=== PATIENT | male | born 1950 | race Caucasian/White ===

== ENCOUNTER 2020-09-10 07:50 | Outpatient (RCR) | payer OTHER, SELFPAY | END 2020-09-24 11:00 | disposition home or self-care (01) | LOC: HO.WCC 07:50 | PROVIDERS: PCP Internal Medicine; Visit Provider Surgery | DX: E11.622 Type 2 diabetes mellitus with other skin ulcer (principal); I87.312 Chronic venous hypertension (idiopathic) with ulcer of left lower extremity; L97.329 Non-pressure chronic ulcer of left ankle with unspecified severity; Z92.3 Personal history of irradiation; Z79.4 Long term (current) use of insulin | CPT/HCPCS: 99212; 99213; 99214 ==

== ENCOUNTER 2020-11-03 12:45 | Inpatient (IN) | payer OTHER, SELFPAY ==
--- NOTE | ~2020-11-03 | XR_ITS ---
EXAMINATION: BILATERAL LOWER LEG X-RAYS CLINICAL INFORMATION: Evaluate for osteomyelitis COMPARISON: None TECHNIQUE: 2 views of both lower legs FINDINGS: Right: Bone alignment is normal. No fracture or dislocation is seen. There are degenerative changes at the knee joint. There is no x-ray evidence of osteomyelitis. Soft tissues are unremarkable. Left: Bone alignment is normal. No fracture or dislocation is seen. There is a cortical thickening or periosteal reaction along the proximal medial shaft of the tibia. There is arthritis at the knee and ankle joint. Soft tissues are unremarkable. Soft tissues are unremarkable. XR/XR tibia fibula RT 2V IMPRESSION: Right lower leg: No evidence of osteomyelitis. Left lower leg: Focal periosteal reaction or cortical thickening of the medial proximal shaft of the tibia questionable for osteomyelitis.
--- NOTE | ~2020-11-03 | CT_ITS ---
EXAMINATION: CT KNEE LEFT WITH CONTRAST CLINICAL INFORMATION: Nonhealing ulcer. Clinical concern for osteomyelitis. Abnormal findings on radiographs. COMPARISON: Radiographs of lower extremity from 11/03/2020. Radiographs of the knee from 08/06/2020. TECHNIQUE: Multidetector CT imaging examination of the left knee was performed with intravenous administration of 85 mL Omnipaque 350. No contrast reaction reported. This CT examination was performed using dose optimization techniques as appropriate, variously including the following: *Automated exposure control. *Adjustment of mA and/or kV according to patient size (this includes techniques or standardized protocols for targeted exams where dose is matched to indication/reason for exam, i.e., extremities or head). *Use of iterative reconstruction technique. DLP: 242 mGycm FINDINGS: Localizer images demonstrate obese body habitus, osteoarthritis of both knees (medial tibiofemoral compartments worse than lateral compartments) and bilateral genu varus deformity. Diffuse edema of subcutaneous tissues of the visualized lower thigh, knee and leg, and edematous thickening of the skin. No soft tissue gas. Dilated, varicose veins are present within the extremity. No evidence of venous thrombosis. There is generally moderate atherosclerotic calcification of the peripheral vessels. The visualized muscles of the thigh and leg are atrophied and fatty replaced. No soft tissue mass or focal fluid collection. No evidence of abnormal thickening of the fascia overlying the muscles. There is an old focus of heterotopic ossification along the medial surface of the proximal tibial diaphysis that remains unchanged compared to 08/06/2010. Tricompartmental osteophyte formation of the left knee with loss of patellofemoral and medial tibiofemoral joint spaces and subchondral cystic changes. No evidence of bone erosions or aggressive periostitis. A trace amount of fluid is present in the knee joint. No Paz's cyst. CT/CT knee LT w con IMPRESSION: * No evidence of septic arthritis or osteomyelitis at the left knee. * Morbid obesity and tricompartmental osteoarthritis of left knee. The joint degeneration is moderate at the lateral tibiofemoral compartment and severe at the patellofemoral and medial tibiofemoral compartments. * Nonspecific, diffuse subcutaneous tissue edema of the extremity. This could be a manifestation of venous insufficiency or cellulitis. No evidence of fasciitis, soft tissue gas or abscess.
--- NOTE | ~2020-11-03 | XR_ITS ---
EXAMINATION: BILATERAL LOWER LEG X-RAYS CLINICAL INFORMATION: Evaluate for osteomyelitis COMPARISON: None TECHNIQUE: 2 views of both lower legs FINDINGS: Right: Bone alignment is normal. No fracture or dislocation is seen. There are degenerative changes at the knee joint. There is no x-ray evidence of osteomyelitis. Soft tissues are unremarkable. Left: Bone alignment is normal. No fracture or dislocation is seen. There is a cortical thickening or periosteal reaction along the proximal medial shaft of the tibia. There is arthritis at the knee and ankle joint. Soft tissues are unremarkable. Soft tissues are unremarkable. XR/XR tibia fibula LT 2V IMPRESSION: Right lower leg: No evidence of osteomyelitis. Left lower leg: Focal periosteal reaction or cortical thickening of the medial proximal shaft of the tibia questionable for osteomyelitis.
--- NOTE | ~2020-11-03 | US_ITS ---
EXAMINATION: RIGHT and LEFT LOWER EXTREMITY VENOUS ULTRASOUND (Reflux Exam) CLINICAL INDICATION: Nonhealing ulcer COMPARISON: None. TECHNIQUE: Color flow triplex imaging and compression Doppler was performed to evaluate both the deep and the superficial systems bilaterally. To evaluate the superficial system, the examination was performed in the upright position. Color-flow Doppler ultrasound and compression ultrasound were utilized. In addition, maneuvers were utilized to demonstrate reflux. Exam is very limited due to body habitus. FINDINGS: 1. DEEP VENOUS ULTRASOUND OF THE RIGHT LOWER EXTREMITY: Respiratory variation, normal compression and augmented flow are noted in the right common femoral vein as well as the right popliteal vein and there is no evidence of deep venous thrombosis at these locations. There is no evidence of reflux in the deep system in either the common femoral vein or the popliteal vein. There is no evidence of a Paz's cyst. 2. SUPERFICIAL ULTRASOUND WITH DOPPLER OF RIGHT LOWER EXTREMITY: The right great saphenous vein at the saphenofemoral junction measures 6 mm, at the mid thigh 5 mm, [id number] 5 mm, [id number]-[id number] 5 mm, and not seen at the mid calf and ankle. There is no reflux demonstrated in the right great saphenous vein. The right small saphenous vein is not seen. There is a section cutter in the proximal calf that measures 3 mm and does not demonstrate reflux. There are are multiple varicosities. There is a 3 mm varicosity in the proximal thigh that demonstrates once second reflux and a 4 mm varicosity in the proximal calf that demonstrates 0.8 seconds reflux. 3. DEEP VENOUS ULTRASOUND OF THE LEFT LOWER EXTREMITY: Respiratory variation, normal compression and augmented flow are noted in the left common femoral vein as well as the left popliteal vein and there is no evidence of deep venous thrombosis at these locations. There is 0.9 seconds reflux in the left common femoral vein. There is no evidence of reflux in the deep system in either the mid femoral vein or the popliteal vein. . There is no evidence of a Paz's cyst. 4. SUPERFICIAL ULTRASOUND WITH DOPPLER OF LEFT LOWER EXTREMITY: Left great saphenous vein at the saphenofemoral junction measures 8 mm, at the mid thigh 7 mm, [id number]-[id number] 6 mm, [id number] 7 mm. The remainder of the left greater saphenous vein is not visualized. There is left greater saphenous vein reflux measuring maximum 1.8 seconds. The left small saphenous vein is not visualized. There is a section cutter at the knee that measures 2 mm and does not demonstrate reflux. There are varicosities in the thigh and calf that measure maximum 6 mm and have maximum 0.9 seconds reflux. US/US venous duplex LE BI IMPRESSION: Limited exam Right: No evidence of deep venous reflux or DVT. No great saphenous vein reflux seen. Right lesser saphenous vein is not visualized. Reflux in varicosities in the proximal thigh and calf. Left: No evidence of DVT. Deep venous reflux measuring 0.9 seconds in the left common femoral vein. Left greater saphenous vein reflux measuring maximum 1.8 seconds and reflux in varicosities.
[2020-11-03 13:21] VITALS: BP 160/59; PULSE 71; RESP 18; TEMP 36.7; BMI 58.4
--- NOTE | 2020-11-03 15:51 | ED.EXTPRO ---
HPI - Extremity Problem General Chief complaint: Extremity Problem Stated complaint: bilat leg pain and swelling Time Seen by Provider: 11/03/20 15:17 Source: patient Mode of arrival: ambulatory Limitations: no limitations History of Present Illness HPI Narrative: Patient presents to ED for evaluation of bilateral lower extremities. Patient states history of venous stasis with chronic wounds. Patient states wound clinic give him a tube of lotion to using compression socks in and now his skin on bilateral lower extremities flaky with some oozing. Patient denies any fever or chills. Patient denies any increased swelling of lower extremities, chest pain, shortness of breath Related Data Home Medications Medication Instructions Recorded Confirmed allopurinol 300 mg tablet 300 mg PO DAILY 11/03/20 11/03/20 ascorbic acid (vitamin C) 1,000 mg 1,000 mg PO BID 11/03/20 11/03/20 tablet (Vitamin C) cholecalciferol (vitamin D3) 50 50 mcg PO DAILY 11/03/20 11/03/20 mcg (2,000 unit) capsule cyanocobalamin (vitamin B-12) 2,000 mcg PO DAILY 11/03/20 11/03/20 1,000 mcg tablet insulin aspart U-100 100 unit/mL 5 unit SUBCUT DAILY@1200 11/03/20 11/03/20 subcutaneous solution (Novolog U-100 Insulin aspart) insulin aspart U-100 100 unit/mL 12 unit SUBCUT DAILY@1700 11/03/20 11/03/20 subcutaneous solution (Novolog U-100 Insulin aspart) insulin glargine 100 unit/mL 35 unit SUBCUT QAM 11/03/20 11/03/20 subcutaneous cartridge methenamine hippurate 1 gram tablet 1 g PO BID 11/03/20 11/03/20 pravastatin 40 mg tablet 40 mg PO BEDTIME 11/03/20 11/03/20 spironolactone 25 mg tablet 25 mg PO DAILY 11/03/20 11/03/20 tamsulosin 0.4 mg capsule 0.4 mg PO BEDTIME 11/03/20 11/03/20 torsemide 20 mg tablet 20 mg PO DAILY 11/03/20 11/03/20 Previous Rx's Medication Instructions Recorded apixaban 5 mg tablet (Eliquis) 5 mg PO BID 30 Days #60 tab 03/26/20 Allergies Allergy/AdvReac Type Severity Reaction Status Date / Time penicillin V Allergy Unknown Verified 10/16/19 00:00 Penicillins AdvReac Intermediate HALLUCINATIONS, Unverified 12/19/19 15:54 SWEATS Review of Systems Review of Systems: Yes all other systems are reviewed and are negative Constitutional: Constitutional: Reports as per HPI and Reports no additional constitutional complaints Eyes: Eyes: Reports as per HPI ENT: Reports system reviewed and no additional complaints, except as documented and Reports as per HPI Cardiovascular: Cardiovascular: Reports as per HPI and Reports no additional cardiovascular complaints Respiratory: Respiratory: Reports as per HPI and Reports no additional respiratory complaints Gastrointestinal: Gastrointestinal: Reports as per HPI and Reports no additional gastrointestinal complaints Genitourinary: Genitourinary: Reports no additional male genitourinary complaints and Reports as per HPI Musculoskeletal: Comments: Chronic wounds of lower extremity with bruising Neurologic: Reports system reviewed and no additional complaints, except as documented and Reports as per HPI Psychiatric: Psychiatric: Reports no additional psychiatric complaints and Reports as per HPI [facility] Past Medical History Medical History (Updated 11/03/20 @ 18:22 by RANDY Cerda) Diabetes Hypertension Kidney disease Social History Social History Advance Directives: No Advance Directives Information Provided: No Physical Exam Vital Signs: Vital Signs: Last Vital Signs Temp 98.1 F 11/03/20 13:21 Pulse 71 11/03/20 13:21 Resp 18 11/03/20 13:21 BP 160/59 H 11/03/20 13:21 Body Mass Index 58.4 Const: General: cooperative, healthy appearing, comfortable, no acute distress, well developed, alert and awake Orientation/consciousness: patient oriented x3 HENMT: Head: Yes normal to inspection, Yes No palpable skull fracture present, Yes normocephalic and Yes atraumatic Eyes: General: appearance normal, both eyes and all related structures Neck: Neck: Yes normal visual inspection, Yes full ROM, Yes no lymphadenopathy, Yes no meningeal signs, Yes trachea midline, Yes supple and No tender Chest: Chest palpation & inspection: normal inspection of the chest and normal palpation of entire chest wall Resp: Effort & Inspection: normal respiratory effort and able to speak in complete sentences Cardio: Jugular venous distension: no JVD Heart sounds: S1 normal heart sound present and S2 normal heart sound present GI: Inspection: Yes normal to inspection and No abdominal wall ecchymosis Palpation (GI): Soft to palpation, not firm, nontender, no guarding and not rigid : General: No CVA tenderness and Yes no CVA tenderness Back/Spine/Pelvis: Back: no CVA tenderness, No CVA tenderness and No back tenderness Skin: General skin exam: no rashes or lesions noted and elasticity normal Neuro: General: patient oriented x3, gait normal, no meningeal signs and CN's II-XI intact bilaterally Cranial nerves: Yes CN's II-XII intact bilaterally Extrem: Other: Bilateral lower extremities shows chronic venous stasis changes with dry scaly skin. With serosanguineous mild drainage. Negative for any foul odor or yellow/green pus discharge. Negative for any tenderness on palpation. Psych: Appearance: grossly normal, well kempt and not disheveled Course Course Course Narrative: Wound looks chronic and not really infected but will do x-rays and basic labs to rule out any osteomyelitis Reevaluation(s) Reevaluation #1: X-ray came back positive for osteomyelitis of left leg. Will start antibiotics Time: 16:24 Reevaluation #2: Labs shows mild elevated white blood cell count with elevated ESR CRP. Patient is in a KI. Patient to be admitted for osteomyelitis. Time: 18:18 MDM - Extremity (Nontraumatic) MDM Narrative Medical decision making narrative: Osteomyelitis. MARGOTH. Lab Data Result diagrams: 11/03/20 17:13 11/03/20 17:13 Labs: Lab Results 11/03/20 11/03/20 11/03/20 Range/Units 17:12 17:13 17:13 WBC 11.9 H (4.8-10.8) X10*3/uL RBC 4.86 (4.60-5.80) X10*6/uL Hgb 14.2 (14.0-18.0) g/dl Hct 44.5 (42-52) % MCV 91.6 (80-98) fL MCH 29.2 (27.0-33.0) pg MCHC 31.9 (31.0-36.0) g/dl RDW 15.9 (11.0-16.0) % Plt Count 209 (160-400) X10*3/uL MPV 10.7 (9.4-12.4) fL Immature Gran % (Auto) 1.1 H (0.0-0.4) % Neut % (Auto) 83.8 H (45-73) % Lymph % (Auto) 7.7 L (20-40) % [place] % (Auto) 5.6 (2-11) % Eos % (Auto) 1.5 (0-4) % Baso % (Auto) 0.3 (0-2) % Lymph # (Auto) 0.9 L (1.2-4.9) X10*3/uL [place] # (Auto) 0.7 (0.1-1.2) X10*3/uL Eos # (Auto) 0.2 (0.0-0.4) X10*3/uL Baso # (Auto) 0.0 (0.0-0.2) X10*3/uL Abs Immat Gran (auto) 0.13 H (0.00-0.03) X10*3/uL Absolute Neuts (auto) 10.0 H (2.0-8.3) X10*3/uL Absolute Nucleated RBC 0.000 (0.0-0.012) X10*3/uL Nucleated RBC % (auto) 0.0 (0.0-0.2) /100WBC ESR 38 H (0-15) MM/HR PT (9.9-13.0) SEC INR (0.9-1.1) APTT (24.1-38.0) SEC Sodium (135-145) mmol/L Potassium (3.3-5.1) mmol/L Chloride (96-108) mmol/L Carbon Dioxide (22-29) mmol/L Anion Gap (12-20) BUN (9-16) mg/dL Creatinine (0.5-1.4) mg/dL Estim Creat Clear Calc Estimated GFR POC Glucose (60-115) mg/dL Random Glucose (60-115) mg/dL Lactic Acid (0.5-2.0) mmol/L Calcium (8.4-10.2) mg/dL Total Bilirubin (0.0-1.0) mg/dL AST (5-37) U/L ALT (0-40) U/L Alkaline Phosphatase (39-117) U/L C-Reactive Protein (< or = 0.50) mg/dL Total Protein (6.5-8.0) g/dL Albumin (3.5-5.0) g/dL COVID-19 ([facility]) Negative (Negative) COVID-19 Clin Com See Note 11/03/20 11/03/20 11/03/20 Range/Units 17:13 17:13 17:22 WBC (4.8-10.8) X10*3/uL RBC (4.60-5.80) X10*6/uL Hgb (14.0-18.0) g/dl Hct (42-52) % MCV (80-98) fL MCH (27.0-33.0) pg MCHC (31.0-36.0) g/dl RDW (11.0-16.0) % Plt Count (160-400) X10*3/uL MPV (9.4-12.4) fL Immature Gran % (Auto) (0.0-0.4) % Neut % (Auto) (45-73) % Lymph % (Auto) (20-40) % [place] % (Auto) (2-11) % Eos % (Auto) (0-4) % Baso % (Auto) (0-2) % Lymph # (Auto) (1.2-4.9) X10*3/uL [place] # (Auto) (0.1-1.2) X10*3/uL Eos # (Auto) (0.0-0.4) X10*3/uL Baso # (Auto) (0.0-0.2) X10*3/uL Abs Immat Gran (auto) (0.00-0.03) X10*3/uL Absolute Neuts (auto) (2.0-8.3) X10*3/uL Absolute Nucleated RBC (0.0-0.012) X10*3/uL Nucleated RBC % (auto) (0.0-0.2) /100WBC ESR (0-15) MM/HR PT 16.5 H (9.9-13.0) SEC INR 1.4 H (0.9-1.1) APTT 47.8 H (24.1-38.0) SEC Sodium 142 (135-145) mmol/L Potassium 4.6 (3.3-5.1) mmol/L Chloride 105 (96-108) mmol/L Carbon Dioxide 27 (22-29) mmol/L Anion Gap 15 (12-20) BUN 38 H (9-16) mg/dL Creatinine 1.52 H (0.5-1.4) mg/dL Estim Creat Clear Calc 74.1 Estimated GFR 46 POC Glucose (60-115) mg/dL Random Glucose 118 H (60-115) mg/dL Lactic Acid 1.0 (0.5-2.0) mmol/L Calcium 8.8 (8.4-10.2) mg/dL Total Bilirubin 0.6 (0.0-1.0) mg/dL AST 13 (5-37) U/L ALT 10 (0-40) U/L Alkaline Phosphatase 93 (39-117) U/L C-Reactive Protein 4.12 H (< or = 0.50) mg/dL Total Protein 7.2 (6.5-8.0) g/dL Albumin 3.9 (3.5-5.0) g/dL COVID-19 ([facility]) (Negative) COVID-19 Clin Com 11/03/20 Range/Units 18:21 WBC (4.8-10.8) X10*3/uL RBC (4.60-5.80) X10*6/uL Hgb (14.0-18.0) g/dl Hct (42-52) % MCV (80-98) fL MCH (27.0-33.0) pg MCHC (31.0-36.0) g/dl RDW (11.0-16.0) % Plt Count (160-400) X10*3/uL MPV (9.4-12.4) fL Immature Gran % (Auto) (0.0-0.4) % Neut % (Auto) (45-73) % Lymph % (Auto) (20-40) % [place] % (Auto) (2-11) % Eos % (Auto) (0-4) % Baso % (Auto) (0-2) % Lymph # (Auto) (1.2-4.9) X10*3/uL [place] # (Auto) (0.1-1.2) X10*3/uL Eos # (Auto) (0.0-0.4) X10*3/uL Baso # (Auto) (0.0-0.2) X10*3/uL Abs Immat Gran (auto) (0.00-0.03) X10*3/uL Absolute Neuts (auto) (2.0-8.3) X10*3/uL Absolute Nucleated RBC (0.0-0.012) X10*3/uL Nucleated RBC % (auto) (0.0-0.2) /100WBC ESR (0-15) MM/HR PT (9.9-13.0) SEC INR (0.9-1.1) APTT (24.1-38.0) SEC Sodium (135-145) mmol/L Potassium (3.3-5.1) mmol/L Chloride (96-108) mmol/L Carbon Dioxide (22-29) mmol/L Anion Gap (12-20) BUN (9-16) mg/dL Creatinine (0.5-1.4) mg/dL Estim Creat Clear Calc Estimated GFR POC Glucose 120 H (60-115) mg/dL Random Glucose (60-115) mg/dL Lactic Acid (0.5-2.0) mmol/L Calcium (8.4-10.2) mg/dL Total Bilirubin (0.0-1.0) mg/dL AST (5-37) U/L ALT (0-40) U/L Alkaline Phosphatase (39-117) U/L C-Reactive Protein (< or = 0.50) mg/dL Total Protein (6.5-8.0) g/dL Albumin (3.5-5.0) g/dL COVID-19 ([facility]) (Negative) COVID-19 Clin Com Discharge Plan Discharge Clinical Impression: Osteomyelitis Patient Disposition: Admitted As Inpatient
[2020-11-03 17:22] LABS: MANUAL DIFF FLAG NO
[2020-11-03 17:23] LABS: Basophils Percent Auto 0.3 % (0-2); Eosinophils Absolute Auto 0.2 X10*3/uL (0.0-0.4); Eosinophils Percent Auto 1.5 % (0-4); Hematocrit 44.5 % (42-52); Hemoglobin 14.2 g/dl (14.0-18.0); Imm Gran Abs Auto 0.13 X10*3/uL (0.00-0.03); Imm Gran Pct Auto 1.1 % (0.0-0.4); Lymphocytes Absolute Auto 0.9 X10*3/uL (1.2-4.9); Lymphocytes Percent Auto 7.7 % (20-40); Mean Corpuscular HGB Conc 31.9 g/dl (31.0-36.0); Mean Corpuscular Hemoglobin 29.2 pg (27.0-33.0); Mean Corpuscular Volume 91.6 fL (80-98); Mean Platelet Volume 10.7 fL (9.4-12.4); Monocytes Absolute Auto 0.7 X10*3/uL (0.1-1.2); Monocytes Percent Auto 5.6 % (2-11); Neutrophils Percent Auto 83.8 % (45-73); Platelet Count 209 X10*3/uL (160-400); Red Blood Count 4.86 X10*6/uL (4.60-5.80); Red Cell Distribution Width 15.9 % (11.0-16.0); White Blood Count 11.9 X10*3/uL (4.8-10.8)
[2020-11-03 17:38] LABS: COVID-19 Test Negative (Negative)
[2020-11-03 17:41] LABS: INTERNATIONAL NORM RATIO 1.4 (0.9-1.1); Prothrombin Time 16.5 SEC (9.9-13.0)
[2020-11-03 17:44] LABS: Partial Thromboplastin Time 47.8 SEC (24.1-38.0)
--- NOTE | 2020-11-03 17:54 | PC.NURSE ---
PT IS AMBULATORY WITH CRUTCHES. BLE FROM SONG TO ANKLE HAVE RED DRIED SKIN WITH WEEPING BUBBLY WOUNDS.
[2020-11-03 17:55] LABS: Alanine Aminotransferase 10 U/L (0-40); Albumin Level 3.9 g/dL (3.5-5.0); Alkaline Phosphatase 93 U/L (39-117); Anion Gap 15 (12-20); Aspartate Amino Transferase 13 U/L (5-37); Bilirubin Total 0.6 mg/dL (0.0-1.0); Blood Urea Nitrogen 38 mg/dL (9-16); C Reactive Protein 4.12 mg/dL (< or = 0.50); Calcium 8.8 mg/dL (8.4-10.2); Carbon Dioxide 27 mmol/L (22-29); Chloride 105 mmol/L (96-108); Creatinine Clr Calc Pharmacy 74.1; Estimated Glomerular Filt Rate 46; Glucose Random 118 mg/dL (60-115); Potassium 4.6 mmol/L (3.3-5.1); Sodium 142 mmol/L (135-145); Total Protein 7.2 g/dL (6.5-8.0)
[2020-11-03 18:11] LABS: Erythrocyte Sedimentation Rate 38 MM/HR (0-15)
[2020-11-03] MEDS: cefTRIAXone sodium 1 GM in 0.9 % Sodium Chloride 50 ML IV (18:14)
[2020-11-03 18:26] LABS: Glucose, Whole Blood 120 mg/dL (60-115)
[2020-11-03 20:23] VITALS: BP 166/61; PULSE 62; TEMP 36.7; O2SAT 100
--- NOTE | 2020-11-03 20:27 | P.HPHOSP_ITS ---
History of Present Illness Date of Service: 11/03/20 Chief Complaint: Bilateral leg pain redness and swelling 69-year-old male with a past medical history of hypertension, hyperlipidemia, diabetes, morbid obesity, ARIEL- on CPAP, history of pulmonary hypertension, atrial flutter on Eliquis, history of recurrent UTIs on chronic nitrofurantoin, history of venous stasis, venous stasis ulcers, chronic leg wounds-follows with Wound Clinic, chronic kidney disease with baseline creatinine around 1.4; presented to the hospital with a chief complaint of left leg increased redness, swelling and pain. Patient mentions that he has been having chronic leg wounds secondary to venous stasis; but today he noticed increased swelling of bilateral legs but noted serosanguineous discharge on the left like; went to the Wound Clinic and subsequently sent to the ER for further evaluation. Patient denies any chest pain palpitations lightheadedness or dizziness. Patient denies any fever chills cough. Patient denies any urinary symptoms or GI symptoms Review of all other systems is negative except mentioned above ER course: Patient had x-rays done which showed left tibial osteomyelitis; given ceftriaxone and vancomycin. Admitted to the hospital for further management. [facility] Medical History Diabetes Hypertension Kidney disease Social History Household Members: Spouse Housing: House Do you presently have visiting nurse or other home services: No Patient Tobacco Use Status: Never used Tobacco service: Yes Current occupational status: retired Meds Allergies Allergy/AdvReac Type Severity Reaction Status Date / Time penicillin V Allergy Unknown Hallucinations, Verified 11/19/20 13:40 Sweats Penicillins AdvReac Intermediate HALLUCINATIONS, Verified 11/19/20 13:40 SWEATS Active Medications: Current Medications Generic Name Dose Route Start Last Admin Trade Name Freq PRN Reason Stop Dose Admin Acetaminophen 650 mg 11/03/20 20:23 Acetaminophen 325 Mg Tablet PO Q6H PRN Pain, Mild (Pain Scale 1-3) Allopurinol 300 mg 11/04/20 09:00 Allopurinol 300 Mg Tablet PO DAILY [facility] Apixaban 5 mg 11/03/20 21:00 Apixaban 5 Mg Tablet PO BID [facility] Ascorbic Acid 1,000 mg 11/03/20 21:00 Ascorbic Acid 500 Mg Tablet PO BID [facility] Cyanocobalamin 2,000 mcg 11/04/20 09:00 Cyanocobalamin (Vitamin B-12) 500 Mcg Tablet PO DAILY [facility] Dextrose 25 gm 11/03/20 20:23 Dextrose 50 % 25 Gm/50 Ml Vial IVPUSH Q15M PRN per Hypoglycemia Standing Ord. Protocol Glucose 15 gm 11/03/20 20:23 Glucose Gel 15 Gm Gel..Gram. PO Q15M PRN per Hypoglycemia Standing Ord. Protocol Vancomycin HCl 1,000 mg/ 270 mls @ 270 mls/hr 11/03/20 20:30 Sodium Chloride IV Q12H [facility] Ceftriaxone Sodium 1 gm/ 50 mls @ 100 mls/hr 11/03/20 20:30 Sodium Chloride IV Q24H [facility] Insulin Glargine 20 unit 11/03/20 21:00 Insulin Glargine,Hum.Rec.Anlog 100 Unit/Ml 10 Ml Vial SUBCUT BEDTIME [facility] Insulin Human Lispro 0 unit 11/03/20 21:00 Insulin Lispro 100 Unit/Ml 3 Ml Vial SUBCUT QIDACHS [facility] Protocol Melatonin 6 mg 11/03/20 20:23 Melatonin 3 Mg Tablet PO BEDTIME PRN Insomnia Non-Formulary Medication 1 gm 11/03/20 21:00 Methenamine Hippurate PO BID [facility] Oxycodone HCl 5 mg 11/03/20 20:23 Oxycodone Hcl Immed Release 5 Mg Tablet PO Q6H PRN Pain, Severe (Pain Scale 7-10) Pharmacy Consult 1 each 11/03/20 18:14 Consult Rx Perform Med Rec MISCELLANE ONCE PRN Consult order Pharmacy Consult 1 each 11/03/20 20:21 Consult Rx Vancomycin Dosing MISCELLANE DAILY PRN Consult order Pravastatin Sodium 40 mg 11/03/20 21:00 Pravastatin Sodium 40 Mg Tablet PO BEDTIME [facility] Senna 17.2 mg 11/03/20 20:23 Sennosides 8.6 Mg Tablet PO BEDTIME PRN Constipation Sodium Chloride 3 ml 11/04/20 00:00 0.9 % Sodium Chloride Flush 3 Ml Syringe IVFLUSH QSHIFT [facility] Spironolactone 25 mg 11/04/20 09:00 Spironolactone 25 Mg Tablet PO DAILY [facility] Protocol Tamsulosin HCl 0.4 mg 11/03/20 21:00 Tamsulosin Hcl 0.4 Mg Capsule PO BEDTIME [facility] Torsemide 20 mg 11/04/20 09:00 Torsemide 20 Mg Tablet PO DAILY [facility] Protocol Vitamin D 50 mcg 11/04/20 09:00 Cholecalciferol (Vitamin D3) 25 Mcg Tablet PO DAILY [facility] Home Medications Medication Instructions Recorded Confirmed Last Taken Type allopurinol 300 mg tablet 300 mg PO DAILY 11/03/20 11/03/20 11/03/20 History ascorbic acid (vitamin C) 1,000 mg 1,000 mg PO BID 11/03/20 11/03/20 11/03/20 History tablet (Vitamin C) cholecalciferol (vitamin D3) 50 50 mcg PO DAILY 11/03/20 11/03/20 11/03/20 History mcg (2,000 unit) capsule cyanocobalamin (vitamin B-12) 2,000 mcg PO DAILY 11/03/20 11/03/20 11/03/20 History 1,000 mcg tablet insulin aspart U-100 100 unit/mL 5 unit SUBCUT DAILY@1200 11/03/20 11/03/20 11/03/20 History subcutaneous solution (Novolog U-100 Insulin aspart) insulin aspart U-100 100 unit/mL 12 unit SUBCUT DAILY@1700 11/03/20 11/03/20 11/02/20 History subcutaneous solution (Novolog U-100 Insulin aspart) insulin glargine 100 unit/mL 35 unit SUBCUT QAM 11/03/20 11/03/20 11/03/20 History subcutaneous cartridge methenamine hippurate 1 gram tablet 1 g PO BID 11/03/20 11/03/20 11/03/20 History pravastatin 40 mg tablet 40 mg PO BEDTIME 11/03/20 11/03/20 11/02/20 History spironolactone 25 mg tablet 25 mg PO DAILY 11/03/20 11/03/20 11/03/20 History tamsulosin 0.4 mg capsule 0.4 mg PO BEDTIME 11/03/20 11/03/20 11/02/20 History torsemide 20 mg tablet 20 mg PO DAILY 11/03/20 11/03/20 11/03/20 History Physical Exam Vital Signs and Narrative: Vital Signs: Last Vital Signs Temp 98.1 F 11/03/20 13:21 Pulse 71 11/03/20 13:21 Resp 18 11/03/20 13:21 BP 160/59 H 11/03/20 13:21 Body Mass Index 58.4 Gen: Appears be in no acute distress; obese HEENT: NCAT, Moist mucosa. Pulmonary: Vesicular breath sounds, fair air entry CVS: Normal S1-S2 Abdomen: BS+, Soft, Nontender Extremities: Warm well perfused; bilateral legs has chronic skin changes, scaling; hyperemic-which she has increased as per the patient; left leg has increased redness up to the ankle and small skin abrasion/serosanguineous discharge noted. Neuro: Alert and awake. Results Labs CBC and Chem 7: 11/04/20 06:17 11/06/20 08:18 Labs: Laboratory Results - last 24 hr 11/03/20 11/03/20 11/03/20 17:12 17:13 17:13 MCV 91.6 MCH 29.2 MCHC 31.9 RDW 15.9 Plt Count 209 MPV 10.7 Immature Gran % (Auto) 1.1 H Neut % (Auto) 83.8 H Lymph % (Auto) 7.7 L [place] % (Auto) 5.6 Eos % (Auto) 1.5 Baso % (Auto) 0.3 Lymph # (Auto) 0.9 L [place] # (Auto) 0.7 Eos # (Auto) 0.2 Baso # (Auto) 0.0 Abs Immat Gran (auto) 0.13 H Absolute Neuts (auto) 10.0 H Absolute Nucleated RBC 0.000 Nucleated RBC % (auto) 0.0 ESR 38 H PT INR APTT Anion Gap Estim Creat Clear Calc Estimated GFR POC Glucose Random Glucose Lactic Acid Calcium Total Bilirubin AST ALT Alkaline Phosphatase C-Reactive Protein Total Protein Albumin COVID-19 ([facility]) Negative COVID-19 Clin Com See Note 11/03/20 11/03/20 11/03/20 17:13 17:13 17:22 MCV MCH MCHC RDW Plt Count MPV Immature Gran % (Auto) Neut % (Auto) Lymph % (Auto) [place] % (Auto) Eos % (Auto) Baso % (Auto) Lymph # (Auto) [place] # (Auto) Eos # (Auto) Baso # (Auto) Abs Immat Gran (auto) Absolute Neuts (auto) Absolute Nucleated RBC Nucleated RBC % (auto) ESR PT 16.5 H INR 1.4 H APTT 47.8 H Anion Gap 15 Estim Creat Clear Calc 74.1 Estimated GFR 46 POC Glucose Random Glucose 118 H Lactic Acid 1.0 Calcium 8.8 Total Bilirubin 0.6 AST 13 ALT 10 Alkaline Phosphatase 93 C-Reactive Protein 4.12 H Total Protein 7.2 Albumin 3.9 COVID-19 ([facility]) COVID-19 Clin Com 11/03/20 18:21 MCV MCH MCHC RDW Plt Count MPV Immature Gran % (Auto) Neut % (Auto) Lymph % (Auto) [place] % (Auto) Eos % (Auto) Baso % (Auto) Lymph # (Auto) [place] # (Auto) Eos # (Auto) Baso # (Auto) Abs Immat Gran (auto) Absolute Neuts (auto) Absolute Nucleated RBC Nucleated RBC % (auto) ESR PT INR APTT Anion Gap Estim Creat Clear Calc Estimated GFR POC Glucose 120 H Random Glucose Lactic Acid Calcium Total Bilirubin AST ALT Alkaline Phosphatase C-Reactive Protein Total Protein Albumin COVID-19 ([facility]) COVID-19 Clin Com Imaging Radiologist's Impressions: Impressions Tibia/Fibula X-Ray 11/03/20 15:30 IMPRESSION: Right lower leg: No evidence of osteomyelitis. Left lower leg: Focal periosteal reaction or cortical thickening of the medial proximal shaft of the tibia questionable for osteomyelitis. Tibia/Fibula X-Ray 11/03/20 15:30 IMPRESSION: Right lower leg: No evidence of osteomyelitis. Left lower leg: Focal periosteal reaction or cortical thickening of the medial proximal shaft of the tibia questionable for osteomyelitis. Assessment and Plan (1) Osteomyelitis: Status: Acute 69-year-old male with a past medical history of hypertension, hyperlipidem ia, diabetes, atrial flutter, history of gout, chronic kidney disease, venous stasis, history of abscesses ulcers/chronic leg wounds-follows Wound Clinic; pulmonary hypertension, morbid obesity, ARIEL-not on CPAP presented to the hospital with a chief complaint of increased pain redness and swelling of bilateral legs; noted to have cellulitis/dermatitis/osteomyelitis. Chronic venous stasis/dermatitis/left tibial osteomyelitis: Continue vancomycin and ceftriaxone.( patient tolerated ceftriaxone in the ER) ID consult Vascular surgery consult Wound consult Diabetes: Will keep the patient on Lantus 20 units and insulin sliding scale. History of recurrent UTIs: Patient on methenamine hippurate History of a flutter: Continue home Eliquis History of chronic kidney disease: Patient baseline creatinine around 1.4. Will continue to monitor Hx ARIEL: c/w home CPAP at bedtime DVT prophylaxis: Patient on Eliquis Code status: Full code Quality Stroke Does the patient have a stroke diagnosis?: No VTE Prior VTE?: No VTE Risk Level:: Medical - moderate - high VTE Device Contraindication: Treatment Not Indicated VTE Drug Contraindication: N/A - Med Ordered
--- NOTE | 2020-11-03 21:20 | PC.NURSE ---
rn to rn rocio vences on IMC.
--- NOTE | 2020-11-03 21:21 | PC.NURSE ---
Pt has been up to [place] mult times. Is steady with crutches. wounds weep only very slightly. NAD.
[2020-11-03 21:38] VITALS: BP 164/89; PULSE 80; RESP 24; TEMP 36.6; O2SAT 98
[2020-11-03 22:07] LABS: Glucose, Whole Blood 249 mg/dL (60-115)
[2020-11-03] MEDS: Ascorbic Acid 500 MG TABLET 1000 MG PO (22:11)
[2020-11-03] MEDS: Tamsulosin HCL 0.4 MG CAPSULE PO (22:12)
[2020-11-03] MEDS: Insulin Glargine,Hum.rec.anlog 100 UNIT/ML 10 ML VIAL 20 UNIT SUBCUT (22:12)
[2020-11-03] MEDS: Apixaban 5 MG TABLET PO (22:12)
[2020-11-03] MEDS: Pravastatin Sodium 40 MG TABLET PO (22:12)
[2020-11-03] MEDS: Insulin Lispro 100 UNIT/ML 3 ML VIAL SUBCUT (22:12)
[2020-11-03 23:29] VITALS: BP 171/75; PULSE 61; RESP 18; TEMP 36.6; O2SAT 99
[2020-11-04] MEDS: 0.9 % Sodium Chloride Flush 3 ML SYRINGE IVFLUSH ×3 (00:38→15:56)
[2020-11-04] MEDS: vancomycin HCL 750 MG in 0.9 % Sodium Chloride 250 ML 265 MG IV ×2 (06:09→18:41)
[2020-11-04 07:15] VITALS: BP 153/70; PULSE 63; RESP 20; TEMP 36.7; O2SAT 96
[2020-11-04 07:15] LABS: Glucose, Whole Blood 183 mg/dL (60-115)
[2020-11-04 07:16] LABS: MANUAL DIFF FLAG NO
[2020-11-04 07:23] LABS: Basophils Percent Auto 0.1 % (0-2); Eosinophils Absolute Auto 0.2 X10*3/uL (0.0-0.4); Eosinophils Percent Auto 2.1 % (0-4); Hematocrit 39.2 % (42-52); Hemoglobin 12.5 g/dl (14.0-18.0); Imm Gran Abs Auto 0.09 X10*3/uL (0.00-0.03); Imm Gran Pct Auto 0.9 % (0.0-0.4); Lymphocytes Absolute Auto 0.7 X10*3/uL (1.2-4.9); Lymphocytes Percent Auto 6.4 % (20-40); Mean Corpuscular HGB Conc 31.9 g/dl (31.0-36.0); Mean Corpuscular Hemoglobin 28.9 pg (27.0-33.0); Mean Corpuscular Volume 90.7 fL (80-98); Mean Platelet Volume 10.8 fL (9.4-12.4); Monocytes Absolute Auto 0.7 X10*3/uL (0.1-1.2); Neutrophils Absolute Auto 8.7 X10*3/uL (2.0-8.3); Neutrophils Percent Auto 83.5 % (45-73); Platelet Count 195 X10*3/uL (160-400); Red Blood Count 4.32 X10*6/uL (4.60-5.80); Red Cell Distribution Width 15.8 % (11.0-16.0); White Blood Count 10.5 X10*3/uL (4.8-10.8)
[2020-11-04] MEDS: Cholecalciferol (Vitamin D3) 25 MCG TABLET 50 MCG PO (07:40)
[2020-11-04] MEDS: Spironolactone 25 MG TABLET PO (07:40)
[2020-11-04] MEDS: Apixaban 5 MG TABLET PO ×2 (07:40→20:56)
[2020-11-04] MEDS: Torsemide 20 MG TABLET PO (07:40)
[2020-11-04] MEDS: Ascorbic Acid 500 MG TABLET 1000 MG PO ×2 (07:40→20:56)
[2020-11-04] MEDS: Insulin Lispro 100 UNIT/ML 3 ML VIAL SUBCUT ×4 (07:41→20:56)
[2020-11-04] MEDS: allopurinoL 300 MG TABLET PO (07:41)
[2020-11-04] MEDS: Cyanocobalamin (Vitamin B-12) 500 MCG TABLET 2000 MCG PO (07:41)
--- NOTE | 2020-11-04 07:48 | HE.PHANOTE ---
Follow up on patient own medication: Methanamine. TERRELL earl spoke with patient and he will have someone bring it in. Tyra Ford, AndreyD
[2020-11-04 07:52] LABS: Anion Gap 13 (12-20); Blood Urea Nitrogen 35 mg/dL (9-16); Calcium 7.8 mg/dL (8.4-10.2); Carbon Dioxide 23 mmol/L (22-29); Chloride 107 mmol/L (96-108); Creatinine Clr Calc Pharmacy 89.4; Estimated Glomerular Filt Rate 57; Glucose Random 175 mg/dL (60-115); Potassium 4.1 mmol/L (3.3-5.1); Sodium 139 mmol/L (135-145)
--- NOTE | 2020-11-04 09:13 | P.CDIC_ITS ---
CDI Concurrent Query Service Date: 11/04/20 Documentation Clarification: Please clarify if you are treating a proba ble/suspected/likely or confirmed: Osteomyelitis Other, please specify if known or undetermined Provider Response: Other Other Diagnosis: Acute Osteomyelitis PLEASE DO NOT DELETE/MODIFY EXISTING CONTENT Additional information is needed in order to code to the highest accuracy and appropriate Severity of Illness (SOI). Please clarify the information noted below in your progress notes and discharge summary. Risk Factors/Clinical Indicators/Treatments Xray came back positive for osteomyelitis left leg. Increased swelling noted serosanguineous discharge from left leg. Chronic wounds, venous stasis ulcers. Admit, Antibiotics for the osteomyelitis. CDS: Romi Hubbard CCS, CDIS Contact Number: [phone] Please Review the information above and exercise your independent professional judgment in responding to the query. If you concur, pleas document in the PROGRESS NOTES and DISCHARGE SUMMARY. If you do not agree with the query, please document in the query above. THIS QUERY IS PART OF THE PERMANENT MEDICAL RECORD
--- NOTE | 2020-11-04 10:14 | MHC.CM.PN ---
IMM 11/04/20, EMR REVIEWED, PT ADMITTED W/OSTEOMYELITIS OF LLE, CM MET W/PT WHO IS A&OX4, PT REPORTS HE LIVES AT HOME W/, PT INDEPENDENT W/CARE, USES A FRONT WHEELED WALKER, DIABETIC SUPPLIES AND A CPAP, PT HAS NO HOME SERVICES, PT DECLINES STR AND REPORTS HE WOULD LIKE TO GO HOME W/[facility] AND IV ABX, PT REPORTS IT WILL BE THE THIRD TIME HE HAS HAD THEM AT HOME, LAST BEING AFTER AN INPT STAY AT [facility], PT VERIIFIES PCP, WOUND CLINIC, [facility] AND HCP, COPY OF HCP HAS BEEN REQUESTED. D/C PLAN: HOME W/[facility] & [facility], FAMILY FOR TRANSPORT [facility] PCP: SALTY NICHOLS AT [facility] ENDOCRINOLOGY: DR HARMON HCP: [facility] [phone] COVID VACCINE: MODERNA 06/13/20, 07/11/20
--- NOTE | 2020-11-04 10:36 | PM.CNGS ---
History of Present Illness Consult details Consult date: 11/04/20 Reason for consult: wound care Narrative: Morbidly obese 69-year-old gentleman presents for evaluation of significantly swollen lower extremities with ulceration. Upon discussion with him his swollen extremities have been going on for several years but over the past 48 hours or so he has developed sloughing of the skin. He has had skin discoloration for many years as well. He became quite concerned and came to the hospital. He was subsequently admitted and treated. He has no prior history of venous treatment no prior history DVT or trauma. In terms of cancer history he does have melanoma of the head and neck which was treated with local radiation in that region. He now presents to us for vascular evaluation. Review of Systems Constitutional: Constitutional: Reports as per HPI ENT: Reports system reviewed and no additional complaints, except as documented Cardiovascular: Cardiovascular: Denies chest pain, Denies chest pain at rest and Denies chest pain with activity Respiratory: Respiratory: Denies chest congestion and Denies cough Gastrointestinal: Gastrointestinal: Reports no additional gastrointestinal complaints Musculoskeletal: Musculoskeletal: Denies abnormal gait Integumentary/Breasts: Skin/Breast: Reports pruritus and Denies wounds Neurologic: Reports system reviewed and no additional complaints, except as documented and Denies abnormal gait Psychiatric: Psychiatric: Denies no additional psychiatric complaints [facility] Past Medical History Medical History (Updated 11/04/20 @ 10:39 by Darío Starkey MD) Diabetes Hypertension Kidney disease Social History Social History Household Members: Spouse Housing: House Do you presently have visiting nurse or other home services: No Patient Tobacco Use Status: Never used Tobacco Use of substances other than those prescribed or required for medical reasons: No Currently Displaying Signs/Symptoms of Drug Intoxication Withdrawal: No Have you been hit, kicked, punched, or otherwise hurt by someone within the past year? If so, by whom?: No Do you feel safe in your current relationship?: No Current Relationship Is there a partner from a previous relationship who is making you feel unsafe now?: No Are you made to feel afraid or neglected: No Spiritual Healthcare Practices: no Druze Healthcare Practices: no Cultural Healthcare Practices: no Advance Directives: No Advance Directives Information Provided: No Do you have thoughts of harming others: None Do you have a plan to hurt others: No Plan Recently lost weight without trying: No Eating poorly because of decreased appetite: No Nutrition Risks: No Nutritional Risk Poor oral hygiene: No service: Yes Current occupational status: retired Meds Allergies Allergy/AdvReac Type Severity Reaction Status Date / Time penicillin V Allergy Unknown Hallucinations, Verified 11/04/20 00:53 Sweats Penicillins AdvReac Intermediate HALLUCINATIONS, Verified 11/04/20 00:53 SWEATS Active Medications: Current Medications Generic Name Dose Route Start Last Admin Trade Name Freq PRN Reason Stop Dose Admin Acetaminophen 650 mg 11/03/20 20:23 Acetaminophen 325 Mg Tablet PO Q6H PRN Pain, Mild (Pain Scale 1-3) Allopurinol 300 mg 11/04/20 09:00 11/04/20 07:41 Allopurinol 300 Mg Tablet PO 300 mg DAILY [facility] Administration Apixaban 5 mg 11/03/20 21:00 11/04/20 07:40 Apixaban 5 Mg Tablet PO 5 mg BID [facility] Administration Ascorbic Acid 1,000 mg 11/03/20 21:00 11/04/20 07:40 Ascorbic Acid 500 Mg Tablet PO 1,000 mg BID [facility] Administration Cyanocobalamin 2,000 mcg 11/04/20 09:00 11/04/20 07:41 Cyanocobalamin (Vitamin B-12) 500 Mcg Tablet PO 2,000 mcg DAILY [facility] Administration Dextrose 25 gm 11/03/20 20:23 Dextrose 50 % 25 Gm/50 Ml Vial IVPUSH Q15M PRN per Hypoglycemia Standing Ord. Protocol Glucose 15 gm 11/03/20 20:23 Glucose Gel 15 Gm Gel..Gram. PO Q15M PRN per Hypoglycemia Standing Ord. Protocol Ceftriaxone Sodium 1 gm/ 50 mls @ 100 mls/hr 11/04/20 18:00 Sodium Chloride IV Q24H [facility] Vancomycin HCl 750 mg/ Sodium 265 mls @ 265 mls/hr 11/04/20 07:00 11/04/20 07:24 Chloride IV Infused Q12H [facility] Infusion Insulin Glargine 20 unit 11/03/20 21:00 11/03/20 22:12 Insulin Glargine,Hum.Rec.Anlog 100 Unit/Ml 10 Ml Vial SUBCUT 20 unit BEDTIME [facility] Administration Insulin Human Lispro 0 unit 11/03/20 21:00 11/04/20 07:41 Insulin Lispro 100 Unit/Ml 3 Ml Vial SUBCUT 2 unit QIDACHS [facility] Administration Protocol Melatonin 6 mg 11/03/20 20:23 Melatonin 3 Mg Tablet PO BEDTIME PRN Insomnia Non-Formulary Medication 1 gm 11/03/20 21:00 Methenamine Hippurate PO BID D[facility] Oxycodone HCl 5 mg 11/03/20 20:23 Oxycodone Hcl Immed Release 5 Mg Tablet PO Q6H PRN Pain, Severe (Pain Scale 7-10) Pharmacy Consult 1 each 11/03/20 18:14 Consult Rx Perform Med Rec MISCELLANE ONCE PRN Consult order Pharmacy Consult 1 each 11/03/20 20:21 Consult Rx Vancomycin Dosing MISCELLANE DAILY PRN Consult order Pravastatin Sodium 40 mg 11/03/20 21:00 11/03/20 22:12 Pravastatin Sodium 40 Mg Tablet PO 40 mg BEDTIME D[facility] Administration Senna 17.2 mg 11/03/20 20:23 Sennosides 8.6 Mg Tablet PO BEDTIME PRN Constipation Sodium Chloride 3 ml 11/04/20 00:00 11/04/20 07:41 0.9 % Sodium Chloride Flush 3 Ml Syringe IVFLUSH 3 ml QSHIFT D[facility] Administration Spironolactone 25 mg 11/04/20 09:00 11/04/20 07:40 Spironolactone 25 Mg Tablet PO 25 mg DAILY [facility] Administration Protocol Tamsulosin HCl 0.4 mg 11/03/20 21:00 11/03/20 22:12 Tamsulosin Hcl 0.4 Mg Capsule PO 0.4 mg BEDTIME D[facility] Administration Torsemide 20 mg 11/04/20 09:00 11/04/20 07:40 Torsemide 20 Mg Tablet PO 20 mg DAILY [facility] Administration Protocol Vitamin D 50 mcg 11/04/20 09:00 11/04/20 07:40 Cholecalciferol (Vitamin D3) 25 Mcg Tablet PO 50 mcg DAILY [facility] Administration Home Medications Medication Instructions Recorded Confirmed Last Taken Type allopurinol 300 mg tablet 300 mg PO DAILY 11/03/20 11/03/20 11/03/20 History ascorbic acid (vitamin C) 1,000 mg 1,000 mg PO BID 11/03/20 11/03/20 11/03/20 History tablet (Vitamin C) cholecalciferol (vitamin D3) 50 50 mcg PO DAILY 11/03/20 11/03/20 11/03/20 History mcg (2,000 unit) capsule cyanocobalamin (vitamin B-12) 2,000 mcg PO DAILY 11/03/20 11/03/20 11/03/20 History 1,000 mcg tablet insulin aspart U-100 100 unit/mL 5 unit SUBCUT DAILY@1200 11/03/20 11/03/20 11/03/20 History subcutaneous solution (Novolog U-100 Insulin aspart) insulin aspart U-100 100 unit/mL 12 unit SUBCUT DAILY@1700 11/03/20 11/03/20 11/02/20 History subcutaneous solution (Novolog U-100 Insulin aspart) insulin glargine 100 unit/mL 35 unit SUBCUT QAM 11/03/20 11/03/20 11/03/20 History subcutaneous cartridge methenamine hippurate 1 gram tablet 1 g PO BID 11/03/20 11/03/20 11/03/20 History pravastatin 40 mg tablet 40 mg PO BEDTIME 11/03/20 11/03/20 11/02/20 History spironolactone 25 mg tablet 25 mg PO DAILY 11/03/20 11/03/20 11/03/20 History tamsulosin 0.4 mg capsule 0.4 mg PO BEDTIME 11/03/20 11/03/20 11/02/20 History torsemide 20 mg tablet 20 mg PO DAILY 11/03/20 11/03/20 11/03/20 History Physical Exam Vital Signs: Vital Signs: Last Vital Signs Temp 98.0 F 11/04/20 07:15 Pulse 63 11/04/20 07:15 Resp 20 11/04/20 07:15 BP 153/70 H 11/04/20 07:15 Pulse Ox 96 11/04/20 07:15 Body Mass Index 58.4 Const: General: cooperative, healthy appearing and comfortable Orientation/consciousness: oriented to person, oriented to place and oriented to time Neck: Carotids: no bruits Chest: Chest palpation & inspection: normal inspection of the chest and normal palpation of entire chest wall Resp: Effort & Inspection: normal respiratory effort and able to speak in complete sentences Cardio: Rate: regular rate Heart sounds: S1 normal heart sound present and S2 normal heart sound present Peripheral pulses: Peripheral pulses 2+ throughout GI: Inspection: Yes normal to inspection Skin: Other: +3 edema, large rope-like varicosities greater than 3 mm, hyperpigmentation, lymphorrea, and hyperplasia General skin exam: dry skin Neuro: General: oriented to person, oriented to place and oriented to time Extrem: General: Yes edema Right lower extremity: full ROM, normal capillary refill and edema Left lower extremity: full ROM, normal capillary refill and edema Psych: Mental Status: mental status grossly normal Results Labs Result diagrams: 11/04/20 06:17 11/04/20 06:17 Labs: Abnormal lab results 11/03/20 11/03/20 11/03/20 Range/Units 17:13 17:13 17:13 WBC 11.9 H (4.8-10.8) X10*3/uL RBC (4.60-5.80) X10*6/uL Hgb (14.0-18.0) g/dl Hct (42-52) % Immature Gran % (Auto) 1.1 H (0.0-0.4) % Neut % (Auto) 83.8 H (45-73) % Lymph % (Auto) 7.7 L (20-40) % Lymph # (Auto) 0.9 L (1.2-4.9) X10*3/uL Abs Immat Gran (auto) 0.13 H (0.00-0.03) X10*3/uL Absolute Neuts (auto) 10.0 H (2.0-8.3) X10*3/uL ESR 38 H (0-15) MM/HR PT (9.9-13.0) SEC INR (0.9-1.1) APTT (24.1-38.0) SEC BUN 38 H (9-16) mg/dL Creatinine 1.52 H (0.5-1.4) mg/dL POC Glucose (60-115) mg/dL Random Glucose 118 H (60-115) mg/dL Calcium (8.4-10.2) mg/dL C-Reactive Protein 4.12 H (< or = 0.50) mg/dL 11/03/20 11/03/20 11/03/20 Range/Units 17:22 18:21 22:02 WBC (4.8-10.8) X10*3/uL RBC (4.60-5.80) X10*6/uL Hgb (14.0-18.0) g/dl Hct (42-52) % Immature Gran % (Auto) (0.0-0.4) % Neut % (Auto) (45-73) % Lymph % (Auto) (20-40) % Lymph # (Auto) (1.2-4.9) X10*3/uL Abs Immat Gran (auto) (0.00-0.03) X10*3/uL Absolute Neuts (auto) (2.0-8.3) X10*3/uL ESR (0-15) MM/HR PT 16.5 H (9.9-13.0) SEC INR 1.4 H (0.9-1.1) APTT 47.8 H (24.1-38.0) SEC BUN (9-16) mg/dL Creatinine (0.5-1.4) mg/dL POC Glucose 120 H 249 H (60-115) mg/dL Random Glucose (60-115) mg/dL Calcium (8.4-10.2) mg/dL C-Reactive Protein (< or = 0.50) mg/dL 11/04/20 11/04/20 11/04/20 Range/Units 06:17 06:17 07:06 WBC (4.8-10.8) X10*3/uL RBC 4.32 L (4.60-5.80) X10*6/uL Hgb 12.5 L (14.0-18.0) g/dl Hct 39.2 L (42-52) % Immature Gran % (Auto) 0.9 H (0.0-0.4) % Neut % (Auto) 83.5 H (45-73) % Lymph % (Auto) 6.4 L (20-40) % Lymph # (Auto) 0.7 L (1.2-4.9) X10*3/uL Abs Immat Gran (auto) 0.09 H (0.00-0.03) X10*3/uL Absolute Neuts (auto) 8.7 H (2.0-8.3) X10*3/uL ESR (0-15) MM/HR PT (9.9-13.0) SEC INR (0.9-1.1) APTT (24.1-38.0) SEC BUN 35 H (9-16) mg/dL Creatinine (0.5-1.4) mg/dL POC Glucose 183 H (60-115) mg/dL Random Glucose 175 H D (60-115) mg/dL Calcium 7.8 L D (8.4-10.2) mg/dL C-Reactive Protein (< or = 0.50) mg/dL Short CBC 11/03/20 11/04/20 Range/Units 17:13 06:17 WBC 11.9 H 10.5 (4.8-10.8) X10*3/uL Hgb 14.2 12.5 L (14.0-18.0) g/dl Hct 44.5 39.2 L (42-52) % Plt Count 209 195 (160-400) X10*3/uL BMP 11/03/20 11/04/20 17:13 06:17 Sodium 142 139 Potassium 4.6 4.1 Chloride 105 107 Carbon Dioxide 27 23 BUN 38 H 35 H Creatinine 1.52 H 1.26 Calcium 8.8 7.8 L D Liver Function 11/03/20 Range/Units 17:13 Total Bilirubin 0.6 (0.0-1.0) mg/dL AST 13 (5-37) U/L ALT 10 (0-40) U/L Alkaline Phosphatase 93 (39-117) U/L Albumin 3.9 (3.5-5.0) g/dL All other labs normal. Assessment and Plan (1) Varicose veins of right lower extremity with inflammation: Status: Acute Patient has significant swelling of the lower extremities. We have discussed conservative measures including compression, elevation, and exercise. I have taken the liberty of ordering bilateral lower extremity venous insufficiency testing. We will assess his reflux status. In addition I do believe he has an element of lymphedema as noted below. (2) Lymphedema: Status: Acute This is a patient that exhibits persistent swelling. They did exhibit the following symptoms despite conservative therapy including hyperkeratosis, hyperplasia, hyper pigmentation, skin breakdown with weeping, impaired mobility and range of motion, and pain. I will workup the venous side for should that prove to be negative he may need lymphedema therapy which can be coordinated as an outpatient. We will continue to monitor this patient with you. Thank you for allowing us to assist in his care. Procedures Date of Service Date of Service: 11/04/20
[2020-11-04 11:12] LABS: Glucose, Whole Blood 187 mg/dL (60-115)
[2020-11-04 11:43] VITALS: BP 160/77; PULSE 64; RESP 20; TEMP 37.1; O2SAT 97
--- NOTE | 2020-11-04 14:51 | MHC.CM.PN ---
CM ATTEMPTED TO MEET W/PT TO DISCUSS PLAN D/T HAVING TO PAY OUT OF POCKET FOR IV ABX AT HOME, PER [facility] [phone], PT NOT IN ROOM, CM TO REPROACH LATER IN SHIFT.
[2020-11-04 15:25] VITALS: BP 156/66; PULSE 62; RESP 18; TEMP 36.6; O2SAT 100
--- NOTE | 2020-11-04 15:48 | MHC.CM.PN ---
CM RECEIVED MESSAGE FROM [facility] REGARDING COST OF IV ABX AND OPTIONS, PER [facility]IA[facility] IF PT IS IN A [facility] CONTRACT[facility] SNF [facility] WILL BE ABLE TO TRANSITION PT HOME AND [facility] 100% OF COST OF IV ABX, CM MET W/PT WHO IS PLEASED W/THIS PLAN AND REFERRALS SENT TO [facility] AND [facility] PER PT REQUEST. NEW D/C PLAN: STR FOR IV ABX, BLS TRANSPORT W/[facility] FOLLOWING. PLEASE LET [facility] KNOW WHICH SNF PT TRANSFERS TO.
[2020-11-04 16:17] LABS: Glucose, Whole Blood 202 mg/dL (60-115)
--- NOTE | 2020-11-04 17:03 | W.PM.IDCN ---
History of Present Illness Data of Consult Service Date: 11/04/20 Requesting physician: Crow Rubio Primary Care Provider: Unknown Physician HPI Reason for consult: leg scaling He presents with scaly legs bilaterally,worse on left with drainage. He has been following with Wound care He had XRay left ?tibial osteomyelitis He has no fever or chills Review of Systems Review of Systems: Yes all other systems are reviewed and are negative PMFSH Past Medical History Medical History Diabetes Hypertension Kidney disease Family History Family history: reviewed and not pertinent Social History Social History Household Members: Spouse Housing: House Do you presently have visiting nurse or other home services: No Patient Tobacco Use Status: Never used Tobacco Use of substances other than those prescribed or required for medical reasons: No Currently Displaying Signs/Symptoms of Drug Intoxication Withdrawal: No Have you been hit, kicked, punched, or otherwise hurt by someone within the past year? If so, by whom?: No Do you feel safe in your current relationship?: No Current Relationship Is there a partner from a previous relationship who is making you feel unsafe now?: No Are you made to feel afraid or neglected: No Spiritual Healthcare Practices: no Moravian Healthcare Practices: no Cultural Healthcare Practices: no Advance Directives: No Advance Directives Information Provided: No Do you have thoughts of harming others: None Do you have a plan to hurt others: No Plan Recently lost weight without trying: No Eating poorly because of decreased appetite: No Nutrition Risks: No Nutritional Risk Poor oral hygiene: No service: Yes Current occupational status: retired Meds Allergies Allergy/AdvReac Type Severity Reaction Status Date / Time penicillin V Allergy Unknown Hallucinations, Verified 11/04/20 00:53 Sweats Penicillins AdvReac Intermediate HALLUCINATIONS, Verified 11/04/20 00:53 SWEATS Active Medications: Current Medications Generic Name Dose Route Start Last Admin Trade Name Freq PRN Reason Stop Dose Admin Acetaminophen 650 mg 11/03/20 20:23 Acetaminophen 325 Mg Tablet PO Q6H PRN Pain, Mild (Pain Scale 1-3) Allopurinol 300 mg 11/04/20 09:00 11/04/20 07:41 Allopurinol 300 Mg Tablet PO 300 mg DAILY [facility] Administration Apixaban 5 mg 11/03/20 21:00 11/04/20 07:40 Apixaban 5 Mg Tablet PO 5 mg BID [facility] Administration Ascorbic Acid 1,000 mg 11/03/20 21:00 11/04/20 07:40 Ascorbic Acid 500 Mg Tablet PO 1,000 mg BID [facility] Administration Cyanocobalamin 2,000 mcg 11/04/20 09:00 11/04/20 07:41 Cyanocobalamin (Vitamin B-12) 500 Mcg Tablet PO 2,000 mcg DAILY [facility] Administration Dextrose 25 gm 11/03/20 20:23 Dextrose 50 % 25 Gm/50 Ml Vial IVPUSH Q15M PRN per Hypoglycemia Standing Ord. Protocol Glucose 15 gm 11/03/20 20:23 Glucose Gel 15 Gm Gel..Gram. PO Q15M PRN per Hypoglycemia Standing Ord. Protocol Ceftriaxone Sodium 1 gm/ 50 mls @ 100 mls/hr 11/04/20 18:00 Sodium Chloride IV Q24H [facility] Vancomycin HCl 750 mg/ Sodium 265 mls @ 265 mls/hr 11/04/20 07:00 11/04/20 07:24 Chloride IV Infused Q12H [facility] Infusion Insulin Glargine 20 unit 11/03/20 21:00 11/03/20 22:12 Insulin Glargine,Hum.Rec.Anlog 100 Unit/Ml 10 Ml Vial SUBCUT 20 unit BEDTIME [facility] Administration Insulin Human Lispro 0 unit 11/03/20 21:00 11/04/20 16:30 Insulin Lispro 100 Unit/Ml 3 Ml Vial SUBCUT 2 unit QIDACHS [facility] Administration Protocol Melatonin 6 mg 11/03/20 20:23 Melatonin 3 Mg Tablet PO BEDTIME PRN Insomnia Non-Formulary Medication 1 gm 11/03/20 21:00 Methenamine Hippurate PO BID [facility] Oxycodone HCl 5 mg 11/03/20 20:23 Oxycodone Hcl Immed Release 5 Mg Tablet PO Q6H PRN Pain, Severe (Pain Scale 7-10) Pharmacy Consult 1 each 11/03/20 18:14 Consult Rx Perform Med Rec MISCELLANE ONCE PRN Consult order Pharmacy Consult 1 each 11/03/20 20:21 Consult Rx Vancomycin Dosing MISCELLANE DAILY PRN Consult order Pravastatin Sodium 40 mg 11/03/20 21:00 11/03/20 22:12 Pravastatin Sodium 40 Mg Tablet PO 40 mg BEDTIME [facility] Administration Senna 17.2 mg 11/03/20 20:23 Sennosides 8.6 Mg Tablet PO BEDTIME PRN Constipation Sodium Chloride 3 ml 11/04/20 00:00 11/04/20 15:56 0.9 % Sodium Chloride Flush 3 Ml Syringe IVFLUSH 3 ml QSHIFT [facility] Administration Spironolactone 25 mg 11/04/20 09:00 11/04/20 07:40 Spironolactone 25 Mg Tablet PO 25 mg DAILY [facility] Administration Protocol Tamsulosin HCl 0.4 mg 11/03/20 21:00 11/03/20 22:12 Tamsulosin Hcl 0.4 Mg Capsule PO 0.4 mg BEDTIME [facility] Administration Torsemide 20 mg 11/04/20 09:00 11/04/20 07:40 Torsemide 20 Mg Tablet PO 20 mg DAILY [facility] Administration Protocol Vitamin D 50 mcg 11/04/20 09:00 11/04/20 07:40 Cholecalciferol (Vitamin D3) 25 Mcg Tablet PO 50 mcg DAILY [facility] Administration Home Medications Medication Instructions Recorded Confirmed Last Taken Type allopurinol 300 mg tablet 300 mg PO DAILY 11/03/20 11/03/20 11/03/20 History ascorbic acid (vitamin C) 1,000 mg 1,000 mg PO BID 11/03/20 11/03/20 11/03/20 History tablet (Vitamin C) cholecalciferol (vitamin D3) 50 50 mcg PO DAILY 11/03/20 11/03/20 11/03/20 History mcg (2,000 unit) capsule cyanocobalamin (vitamin B-12) 2,000 mcg PO DAILY 11/03/20 11/03/20 11/03/20 History 1,000 mcg tablet insulin aspart U-100 100 unit/mL 5 unit SUBCUT DAILY@1200 11/03/20 11/03/20 11/03/20 History subcutaneous solution (Novolog U-100 Insulin aspart) insulin aspart U-100 100 unit/mL 12 unit SUBCUT DAILY@1700 11/03/20 11/03/20 11/02/20 History subcutaneous solution (Novolog U-100 Insulin aspart) insulin glargine 100 unit/mL 35 unit SUBCUT QAM 11/03/20 11/03/20 11/03/20 History subcutaneous cartridge methenamine hippurate 1 gram tablet 1 g PO BID 11/03/20 11/03/20 11/03/20 History pravastatin 40 mg tablet 40 mg PO BEDTIME 11/03/20 11/03/20 11/02/20 History spironolactone 25 mg tablet 25 mg PO DAILY 11/03/20 11/03/20 11/03/20 History tamsulosin 0.4 mg capsule 0.4 mg PO BEDTIME 11/03/20 11/03/20 11/02/20 History torsemide 20 mg tablet 20 mg PO DAILY 11/03/20 11/03/20 11/03/20 History Physical Exam Vital Signs: Vital Signs: Last Vital Signs Temp 98 F 11/04/20 15:25 Pulse 62 11/04/20 15:25 Resp 18 11/04/20 15:25 BP 156/66 H 11/04/20 15:25 Pulse Ox 100 11/04/20 15:25 Body Mass Index 58.4 Const: General: cooperative HENMT: Head: Yes normal to inspection Mouth: Normal oral and palatal mucosa present Resp: Effort & Inspection: normal respiratory effort Cardio: Rate: regular rate Rhythm: regular rhythm GI: Palpation (GI): Soft to palpation and nontender Skin: General skin exam: no rashes or lesions noted Extrem: Other: scaly dermatitis bilateral legs Results Labs CBC & Chem 7: 11/04/20 06:17 11/04/20 06:17 Labs: Short CBC 11/03/20 11/04/20 Range/Units 17:13 06:17 WBC 11.9 H 10.5 (4.8-10.8) X10*3/uL Hgb 14.2 12.5 L (14.0-18.0) g/dl Hct 44.5 39.2 L (42-52) % Plt Count 209 195 (160-400) X10*3/uL BMP 11/03/20 11/04/20 17:13 06:17 Sodium 142 139 Potassium 4.6 4.1 Chloride 105 107 Carbon Dioxide 27 23 BUN 38 H 35 H Creatinine 1.52 H 1.26 Calcium 8.8 7.8 L D Liver Function 11/03/20 Range/Units 17:13 Total Bilirubin 0.6 (0.0-1.0) mg/dL AST 13 (5-37) U/L ALT 10 (0-40) U/L Alkaline Phosphatase 93 (39-117) U/L Albumin 3.9 (3.5-5.0) g/dL Assessment and Plan (1) Varicose veins of right lower extremity with inflammation: Status: Acute (2) Lymphedema: Status: Acute He has scaly dermatitis There is less likely osteomyelitis,would be very odd location Suggest Would continue antibiotics IV for now I ordered CT scan of left leg Would give po Doxycycline and Wound Care if no osteomyelitis
--- NOTE | 2020-11-04 17:05 | HO.PM.IMPN ---
Subjective Subjective Date of Service: 11/04/20 Review of Systems Seen in f/u for osteomylitis, no new issues Physical Exam Vital Signs: Vital Signs: Last Vital Signs Temp 98 F 11/04/20 15:25 Pulse 62 11/04/20 15:25 Resp 18 11/04/20 15:25 BP 156/66 H 11/04/20 15:25 Pulse Ox 100 11/04/20 15:25 Body Mass Index 58.4 General: AO X 3, no acute distress Resp: CTA bilateral CVS: S1,S2,RRR GI: +BS, NT, no distention Skin: See picture below Neuro: motor grossly intact Psych: appropriate affect Extrem: Other: Bilateral lower extremities shows chronic venous stasis changes with dry scaly skin. With serosanguineous mild drainage. Negative for any foul odor or yellow/green pus discharge. Negative for any tenderness on palpation. General: Yes edema Right lower extremity: full ROM, normal capillary refill and edema Left lower extremity: full ROM, normal capillary refill and edema Objective Data Current Medications Generic Name Dose Route Start Last Admin Trade Name Dennisq PRN Reason Stop Dose Admin Acetaminophen 650 mg 11/03/20 20:23 Acetaminophen 325 Mg Tablet PO Q6H PRN Pain, Mild (Pain Scale 1-3) Allopurinol 300 mg 11/04/20 09:00 11/04/20 07:41 Allopurinol 300 Mg Tablet PO 300 mg DAILY [facility] Administration Apixaban 5 mg 11/03/20 21:00 11/04/20 07:40 Apixaban 5 Mg Tablet PO 5 mg BID [facility] Administration Ascorbic Acid 1,000 mg 11/03/20 21:00 11/04/20 07:40 Ascorbic Acid 500 Mg Tablet PO 1,000 mg BID [facility] Administration Cyanocobalamin 2,000 mcg 11/04/20 09:00 11/04/20 07:41 Cyanocobalamin (Vitamin B-12) 500 Mcg Tablet PO 2,000 mcg DAILY [facility] Administration Dextrose 25 gm 11/03/20 20:23 Dextrose 50 % 25 Gm/50 Ml Vial IVPUSH Q15M PRN per Hypoglycemia Standing Ord. Protocol Glucose 15 gm 11/03/20 20:23 Glucose Gel 15 Gm Gel..Gram. PO Q15M PRN per Hypoglycemia Standing Ord. Protocol Ceftriaxone Sodium 1 gm/ 50 mls @ 100 mls/hr 11/04/20 18:00 Sodium Chloride IV Q24H [facility] Vancomycin HCl 750 mg/ Sodium 265 mls @ 265 mls/hr 11/04/20 07:00 11/04/20 07:24 Chloride IV Infused Q12H [facility] Infusion Insulin Glargine 20 unit 11/03/20 21:00 11/03/20 22:12 Insulin Glargine,Hum.Rec.Anlog 100 Unit/Ml 10 Ml Vial SUBCUT 20 unit BEDTIME [facility] Administration Insulin Human Lispro 0 unit 11/03/20 21:00 11/04/20 16:30 Insulin Lispro 100 Unit/Ml 3 Ml Vial SUBCUT 2 unit QIDACHS [facility] Administration Protocol Melatonin 6 mg 11/03/20 20:23 Melatonin 3 Mg Tablet PO BEDTIME PRN Insomnia Non-Formulary Medication 1 gm 11/03/20 21:00 Methenamine Hippurate PO BID [facility] Oxycodone HCl 5 mg 11/03/20 20:23 Oxycodone Hcl Immed Release 5 Mg Tablet PO Q6H PRN Pain, Severe (Pain Scale 7-10) Pharmacy Consult 1 each 11/03/20 18:14 Consult Rx Perform Med Rec MISCELLANE ONCE PRN Consult order Pharmacy Consult 1 each 11/03/20 20:21 Consult Rx Vancomycin Dosing MISCELLANE DAILY PRN Consult order Pravastatin Sodium 40 mg 11/03/20 21:00 11/03/20 22:12 Pravastatin Sodium 40 Mg Tablet PO 40 mg BEDTIME [facility] Administration Senna 17.2 mg 11/03/20 20:23 Sennosides 8.6 Mg Tablet PO BEDTIME PRN Constipation Sodium Chloride 3 ml 11/04/20 00:00 11/04/20 15:56 0.9 % Sodium Chloride Flush 3 Ml Syringe IVFLUSH 3 ml QSHIFT [facility] Administration Spironolactone 25 mg 11/04/20 09:00 11/04/20 07:40 Spironolactone 25 Mg Tablet PO 25 mg DAILY [facility] Administration Protocol Tamsulosin HCl 0.4 mg 11/03/20 21:00 11/03/20 22:12 Tamsulosin Hcl 0.4 Mg Capsule PO 0.4 mg BEDTIME [facility] Administration Torsemide 20 mg 11/04/20 09:00 11/04/20 07:40 Torsemide 20 Mg Tablet PO 20 mg DAILY [facility] Administration Protocol Vitamin D 50 mcg 11/04/20 09:00 11/04/20 07:40 Cholecalciferol (Vitamin D3) 25 Mcg Tablet PO 50 mcg DAILY [facility] Administration Labs CBC & Chem 7: 11/04/20 06:17 11/04/20 06:17 Labs: Laboratory Results - last 24 hr 11/03/20 11/03/20 11/03/20 17:12 17:13 17:13 MCV 91.6 MCH 29.2 MCHC 31.9 RDW 15.9 Plt Count 209 MPV 10.7 Immature Gran % (Auto) 1.1 H Neut % (Auto) 83.8 H Lymph % (Auto) 7.7 L [place] % (Auto) 5.6 Eos % (Auto) 1.5 Baso % (Auto) 0.3 Lymph # (Auto) 0.9 L [place] # (Auto) 0.7 Eos # (Auto) 0.2 Baso # (Auto) 0.0 Abs Immat Gran (auto) 0.13 H Absolute Neuts (auto) 10.0 H Absolute Nucleated RBC 0.000 Nucleated RBC % (auto) 0.0 ESR 38 H PT INR APTT Anion Gap Estim Creat Clear Calc Estimated GFR POC Glucose Random Glucose Lactic Acid Calcium Total Bilirubin AST ALT Alkaline Phosphatase C-Reactive Protein Total Protein Albumin COVID-19 ([facility]) Negative COVID-19 [facility] Com See Note 11/03/20 11/03/20 11/03/20 17:13 17:13 17:22 MCV MCH MCHC RDW Plt Count MPV Immature Gran % (Auto) Neut % (Auto) Lymph % (Auto) [place] % (Auto) Eos % (Auto) Baso % (Auto) Lymph # (Auto) [place] # (Auto) Eos # (Auto) Baso # (Auto) Abs Immat Gran (auto) Absolute Neuts (auto) Absolute Nucleated RBC Nucleated RBC % (auto) ESR PT 16.5 H INR 1.4 H APTT 47.8 H Anion Gap 15 Estim Creat Clear Calc 74.1 Estimated GFR 46 POC Glucose Random Glucose 118 H Lactic Acid 1.0 Calcium 8.8 Total Bilirubin 0.6 AST 13 ALT 10 Alkaline Phosphatase 93 C-Reactive Protein 4.12 H Total Protein 7.2 Albumin 3.9 COVID-19 ([facility]) COVID-19 Clin Com 11/03/20 11/03/20 11/04/20 18:21 22:02 06:17 MCV 90.7 MCH 28.9 MCHC 31.9 RDW 15.8 Plt Count 195 MPV 10.8 Immature Gran % (Auto) 0.9 H Neut % (Auto) 83.5 H Lymph % (Auto) 6.4 L [place] % (Auto) 7.0 Eos % (Auto) 2.1 Baso % (Auto) 0.1 Lymph # (Auto) 0.7 L [place] # (Auto) 0.7 Eos # (Auto) 0.2 Baso # (Auto) 0.0 Abs Immat Gran (auto) 0.09 H Absolute Neuts (auto) 8.7 H Absolute Nucleated RBC 0.000 Nucleated RBC % (auto) 0.0 ESR PT INR APTT Anion Gap Estim Creat Clear Calc Estimated GFR POC Glucose 120 H 249 H Random Glucose Lactic Acid Calcium Total Bilirubin AST ALT Alkaline Phosphatase C-Reactive Protein Total Protein Albumin COVID-19 ([facility]) COVID-19 Dash 11/04/20 11/04/20 11/04/20 06:17 07:06 11:01 MCV MCH MCHC RDW Plt Count MPV Immature Gran % (Auto) Neut % (Auto) Lymph % (Auto) [place] % (Auto) Eos % (Auto) Baso % (Auto) Lymph # (Auto) [place] # (Auto) Eos # (Auto) Baso # (Auto) Abs Immat Gran (auto) Absolute Neuts (auto) Absolute Nucleated RBC Nucleated RBC % (auto) ESR PT INR APTT Anion Gap 13 Estim Creat Clear Calc 89.4 Estimated GFR 57 POC Glucose 183 H 187 H Random Glucose 175 H D Lactic Acid Calcium 7.8 L D Total Bilirubin AST ALT Alkaline Phosphatase C-Reactive Protein Total Protein Albumin COVID-19 ([facility]) COVID-19 [facility] Com 11/04/20 16:10 MCV MCH MCHC RDW Plt Count MPV Immature Gran % (Auto) Neut % (Auto) Lymph % (Auto) [place] % (Auto) Eos % (Auto) Baso % (Auto) Lymph # (Auto) [place] # (Auto) Eos # (Auto) Baso # (Auto) Abs Immat Gran (auto) Absolute Neuts (auto) Absolute Nucleated RBC Nucleated RBC % (auto) ESR PT INR APTT Anion Gap Estim Creat Clear Calc Estimated GFR POC Glucose 202 H Random Glucose Lactic Acid Calcium Total Bilirubin AST ALT Alkaline Phosphatase C-Reactive Protein Total Protein Albumin COVID-19 ([facility]) COVID-19 Clin Com Assessment and Plan (1) Osteomyelitis: Status: Acute (2) Lymphedema: Status: Acute (3) Varicose veins of right lower extremity with inflammation: Status: Acute Assessment and Plan: 69-year-old male with a past medical history of hypertension, hyperlipidemia, diabetes, atrial flutter, history of gout, chronic kidney disease, venous stasis, history of abscesses ulcers/chronic leg wounds-follows [facility]ound [facility]; pulmonary hypertension, morbid obesity, ARIEL-not on CPAP presented to the hospital with a chief complaint of increased pain redness and swelling of bilateral legs; noted to have cellulitis/dermatitis/osteomyelitis. Chronic venous stasis/dermatitis/left tibial osteomyelitis seen on xray Continue vancomycin and ceftriaxone.( patient tolerated ceftriaxone in the ER) ID to assess Vascular recommend conservative management and outpatient f/u Diabetes:? Lantus and sliding scale History of recurrent UTIs:? Patient on methenamine hippurate History of a flutter:? Continue home Eliquis History of chronic kidney disease:? Patient baseline creatinine around 1.4.? Will continue to monitor Hx ARIEL: c/w home CPAP at bedtime Quality Stroke Does the patient have a stroke diagnosis?: No VTE Prior VTE?: No VTE Risk Level:: Medical - moderate - high VTE Device Contraindication: Treatment Not Indicated VTE Drug Contraindication: N/A - Med Ordered
[2020-11-04] MEDS: cefTRIAXone sodium 1 GM in 0.9 % Sodium Chloride 50 ML IV (17:33)
[2020-11-04 19:16] VITALS: BP 134/62; PULSE 58; RESP 18; TEMP 36.6; O2SAT 100
[2020-11-04 20:54] LABS: Glucose, Whole Blood 183 mg/dL (60-115)
[2020-11-04] MEDS: Pravastatin Sodium 40 MG TABLET PO (20:55)
[2020-11-04] MEDS: Insulin Glargine,Hum.rec.anlog 100 UNIT/ML 10 ML VIAL 20 UNIT SUBCUT (20:56)
[2020-11-04] MEDS: Tamsulosin HCL 0.4 MG CAPSULE PO (20:56)
[2020-11-04 23:55] VITALS: BP 151/67; PULSE 57; RESP 18; TEMP 37; O2SAT 99
[2020-11-05] MEDS: 0.9 % Sodium Chloride Flush 3 ML SYRINGE IVFLUSH ×4 (00:14→20:50)
[2020-11-05] MEDS: Acetaminophen 325 MG TABLET 650 MG PO (00:20)
[2020-11-05 06:56] VITALS: BP 152/65; PULSE 60; RESP 20; TEMP 36.1; O2SAT 99
[2020-11-05 07:26] LABS: Glucose, Whole Blood 208 mg/dL (60-115)
[2020-11-05] MEDS: Insulin Lispro 100 UNIT/ML 3 ML VIAL SUBCUT ×2 (07:41→17:06)
[2020-11-05] MEDS: Cholecalciferol (Vitamin D3) 25 MCG TABLET 50 MCG PO (07:42)
[2020-11-05 07:43] VITALS: BP 152/65; PULSE 60
[2020-11-05] MEDS: Spironolactone 25 MG TABLET PO (07:43)
[2020-11-05] MEDS: Apixaban 5 MG TABLET PO ×2 (07:43→20:50)
[2020-11-05] MEDS: Torsemide 20 MG TABLET PO (07:43)
[2020-11-05] MEDS: Ascorbic Acid 500 MG TABLET 1000 MG PO ×2 (07:43→20:49)
[2020-11-05] MEDS: Cyanocobalamin (Vitamin B-12) 500 MCG TABLET 2000 MCG PO (07:44)
[2020-11-05] MEDS: allopurinoL 300 MG TABLET PO (07:44)
[2020-11-05 08:42] LABS: Vancomycin Trough 10.9 mcg/mL (10.0-20.0)
[2020-11-05] MEDS: vancomycin HCL 1,000 MG in 0.9 % Sodium Chloride 250 ML 270 MG IV ×2 (09:47→20:51)
[2020-11-05 11:00] VITALS: BP 142/60; PULSE 60; RESP 18; TEMP 36.6; O2SAT 100
[2020-11-05 11:27] LABS: Glucose, Whole Blood 152 mg/dL (60-115)
[2020-11-05] MEDS: iohexoL 350 MG/ML 100 ML INFUS..BTL IV (14:53)
--- NOTE | 2020-11-05 14:59 | P.PNVS_ITS ---
Subjective Subjective Date of Service: 11/05/20 Patient reports: no new complaints and feels better Interval history: Very pleasant 69-year-old gentleman for follow-up regarding lower extremity swelling. It continues to be a source of pain and discomfort for him. He has had noninvasive venous testing. He is scheduled for CT scan later today. In general he feels better since his hospitalization. Edema has decreased. Physical Exam Vital Signs: Vital Signs: Last Vital Signs Temp 98 F 11/05/20 11:00 Pulse 60 11/05/20 11:00 Resp 18 11/05/20 11:00 BP 142/60 H 11/05/20 11:00 Pulse Ox 100 11/05/20 11:00 Body Mass Index 58.4 Const: General: cooperative, healthy appearing and comfortable Orientation/consciousness: oriented to person, oriented to place and oriented to time Neck: Carotids: no bruits Chest: Chest palpation & inspection: normal inspection of the chest and normal palpation of entire chest wall Resp: Effort & Inspection: normal respiratory effort and able to speak in complete sentences Cardio: Rate: regular rate Heart sounds: S1 normal heart sound present and S2 normal heart sound present Peripheral pulses: Peripheral pulses 2+ throughout GI: Inspection: Yes normal to inspection Skin: Other: +3 edema, large rope-like varicosities greater than 3 mm, sloughing of skin General skin exam: dry skin Neuro: General: oriented to person, oriented to place and oriented to time Extrem: General: Yes edema Right lower extremity: full ROM, normal capillary refill and edema Left lower extremity: full ROM, normal capillary refill and edema Psych: Mental Status: mental status grossly normal Progress Note: A&P Assessment and plan (1) Varicose veins of left lower extremity with inflammation: Status: Acute Assessment and Plan: In short patient does have venous disease and has reflux. He will need to follow-up with us as an outpatient for left great saphenous vein Cyanoacrelate ablation. In addition he may need lymphedema therapy. He will be [facility] in [facility] with [facility]. Thank you for allowing us to assist in his care. If there are any questions or concerns please do not hesitate to contact us. Fall Risk Details Current Medications: Current Medications Generic Name Dose Route Start Last Admin Trade Name Freq PRN Reason Stop Dose Admin Acetaminophen 650 mg 11/03/20 20:23 11/05/20 00:20 Acetaminophen 325 Mg Tablet PO 650 mg Q6H PRN Administration Pain, Mild (Pain Scale 1-3) Allopurinol 300 mg 11/04/20 09:00 11/05/20 07:44 Allopurinol 300 Mg Tablet PO 300 mg DAILY [facility] Administration Apixaban 5 mg 11/03/20 21:00 11/05/20 07:43 Apixaban 5 Mg Tablet PO 5 mg BID [facility] Administration Ascorbic Acid 1,000 mg 11/03/20 21:00 11/05/20 07:43 Ascorbic Acid 500 Mg Tablet PO 1,000 mg BID [facility] Administration Cyanocobalamin 2,000 mcg 11/04/20 09:00 11/05/20 07:44 Cyanocobalamin (Vitamin B-12) 500 Mcg Tablet PO 2,000 mcg DAILY [facility] Administration Dextrose 25 gm 11/03/20 20:23 Dextrose 50 % 25 Gm/50 Ml Vial IVPUSH Q15M PRN per Hypoglycemia Standing Ord. Protocol Glucose 15 gm 11/03/20 20:23 Glucose Gel 15 Gm Gel..Gram. PO Q15M PRN per Hypoglycemia Standing Ord. Protocol Ceftriaxone Sodium 1 gm/ 50 mls @ 100 mls/hr 11/04/20 18:00 11/04/20 18:08 Sodium Chloride IV Infused Q24H [facility] Infusion Vancomycin HCl 1,000 mg/ 270 mls @ 270 mls/hr 11/05/20 09:00 11/05/20 11:51 Sodium Chloride IV Infused Q12H [facility] Infusion Insulin Glargine 20 unit 11/03/20 21:00 11/04/20 20:56 Insulin Glargine,Hum.Rec.Anlog 100 Unit/Ml 10 Ml Vial SUBCUT 20 unit BEDTIME [facility] Administration Insulin Human Lispro 0 unit 11/03/20 21:00 11/05/20 11:42 Insulin Lispro 100 Unit/Ml 3 Ml Vial SUBCUT Not Given QIDACHS [facility] Protocol Melatonin 6 mg 11/03/20 20:23 Melatonin 3 Mg Tablet PO BEDTIME PRN Insomnia Pt Own Med: 1 each 11/04/20 21:00 11/05/20 09:45 Methenamine Harshal 1gm PO 1 each Tab BIDWM [facility] Administration Oxycodone HCl 5 mg 11/03/20 20:23 Oxycodone Hcl Immed Release 5 Mg Tablet PO Q6H PRN Pain, Severe (Pain Scale 7-10) Pharmacy Consult 1 each 11/03/20 18:14 Consult Rx Perform Med Rec MISCELLANE ONCE PRN Consult order Pharmacy Consult 1 each 11/03/20 20:21 Consult Rx Vancomycin Dosing MISCELLANE DAILY PRN Consult order Pravastatin Sodium 40 mg 11/03/20 21:00 11/04/20 20:55 Pravastatin Sodium 40 Mg Tablet PO 40 mg BEDTIME [facility] Administration Senna 17.2 mg 11/03/20 20:23 Sennosides 8.6 Mg Tablet PO BEDTIME PRN Constipation Sodium Chloride 3 ml 11/04/20 00:00 11/05/20 07:41 0.9 % Sodium Chloride Flush 3 Ml Syringe IVFLUSH 3 ml QSHIFT [facility] Administration Spironolactone 25 mg 11/04/20 09:00 11/05/20 07:43 Spironolactone 25 Mg Tablet PO 25 mg DAILY [facility] Administration Protocol Tamsulosin HCl 0.4 mg 11/03/20 21:00 11/04/20 20:56 Tamsulosin Hcl 0.4 Mg Capsule PO 0.4 mg BEDTIME [facility] Administration Torsemide 20 mg 11/04/20 09:00 11/05/20 07:43 Torsemide 20 Mg Tablet PO 20 mg DAILY [facility] Administration Protocol Vitamin D 50 mcg 11/04/20 09:00 11/05/20 07:42 Cholecalciferol (Vitamin D3) 25 Mcg Tablet PO 50 mcg DAILY [facility] Administration Time Spent With Patient Time: Total time spent is greater than 50% in coordination of care (as documented) at patient's floor/unit and/or counseling patient: Time with patient: 15 - 24 minutes Procedures Date of Service Date of Service: 11/05/20 Quality Stroke Does the patient have a stroke diagnosis?: No VTE Prior VTE?: No VTE Risk Level:: Medical - moderate - high VTE Device Contraindication: Treatment Not Indicated VTE Drug Contraindication: N/A - Med Ordered
[2020-11-05 15:20] VITALS: BP 162/70; PULSE 59; RESP 18; TEMP 36.4; O2SAT 99
--- NOTE | 2020-11-05 15:24 | P.PNIM_ITS ---
Subjective Subjective Date of Service: 11/05/20 Review of Systems Seen in f/u for osteomylitis, no new issues Physical Exam Vital Signs: Vital Signs: Last Vital Signs Temp 97.6 F 11/05/20 15:20 Pulse 59 11/05/20 15:20 Resp 18 11/05/20 15:20 BP 162/70 H 11/05/20 15:20 Pulse Ox 99 11/05/20 15:20 Body Mass Index 58.4 Extrem: Other: Bilateral lower extremities shows chronic venous stasis changes with dry scaly skin. With serosanguineous mild drainage. Negative for any foul odor or yellow/green pus discharge. Negative for any tenderness on palpation. General: Yes edema Right lower extremity: full ROM, normal capillary refill and edema Left lower extremity: full ROM, normal capillary refill and edema Objective Data Current Medications Generic Name Dose Route Start Last Admin Trade Name Freq PRN Reason Stop Dose Admin Acetaminophen 650 mg 11/03/20 20:23 11/05/20 00:20 Acetaminophen 325 Mg Tablet PO 650 mg Q6H PRN Administration Pain, Mild (Pain Scale 1-3) Allopurinol 300 mg 11/04/20 09:00 11/05/20 07:44 Allopurinol 300 Mg Tablet PO 300 mg DAILY DALTON Administration Apixaban 5 mg 11/03/20 21:00 11/05/20 07:43 Apixaban 5 Mg Tablet PO 5 mg BID DALTON Administration Ascorbic Acid 1,000 mg 11/03/20 21:00 11/05/20 07:43 Ascorbic Acid 500 Mg Tablet PO 1,000 mg BID DALTON Administration Cyanocobalamin 2,000 mcg 11/04/20 09:00 11/05/20 07:44 Cyanocobalamin (Vitamin B-12) 500 Mcg Tablet PO 2,000 mcg DAILY DALTON Administration Dextrose 25 gm 11/03/20 20:23 Dextrose 50 % 25 Gm/50 Ml Vial IVPUSH Q15M PRN per Hypoglycemia Standing Ord. Protocol Glucose 15 gm 11/03/20 20:23 Glucose Gel 15 Gm Gel..Gram. PO Q15M PRN per Hypoglycemia Standing Ord. Protocol Ceftriaxone Sodium 1 gm/ 50 mls @ 100 mls/hr 11/04/20 18:00 11/04/20 18:08 Sodium Chloride IV Infused Q24H [facility] Infusion Vancomycin HCl 1,000 mg/ 270 mls @ 270 mls/hr 11/05/20 09:00 11/05/20 11:51 Sodium Chloride IV Infused Q12H [facility] Infusion Insulin Glargine 20 unit 11/03/20 21:00 11/04/20 20:56 Insulin Glargine,Hum.Rec.Anlog 100 Unit/Ml 10 Ml Vial SUBCUT 20 unit BEDTIME DALTON Administration Insulin Human Lispro 0 unit 11/03/20 21:00 11/05/20 11:42 Insulin Lispro 100 Unit/Ml 3 Ml Vial SUBCUT Not Given QIDACHS [facility] Protocol Melatonin 6 mg 11/03/20 20:23 Melatonin 3 Mg Tablet PO BEDTIME PRN Insomnia Pt Own Med: 1 each 11/04/20 21:00 11/05/20 09:45 Methenamine Harshal 1gm PO 1 each Tab BIDWM DALTON Administration Oxycodone HCl 5 mg 11/03/20 20:23 Oxycodone Hcl Immed Release 5 Mg Tablet PO Q6H PRN Pain, Severe (Pain Scale 7-10) Pharmacy Consult 1 each 11/03/20 18:14 Consult Rx Perform Med Rec MISCELLANE ONCE PRN Consult order Pharmacy Consult 1 each 11/03/20 20:21 Consult Rx Vancomycin Dosing MISCELLANE DAILY PRN Consult order Pravastatin Sodium 40 mg 11/03/20 21:00 11/04/20 20:55 Pravastatin Sodium 40 Mg Tablet PO 40 mg BEDTIME DALTON Administration Senna 17.2 mg 11/03/20 20:23 Sennosides 8.6 Mg Tablet PO BEDTIME PRN Constipation Sodium Chloride 3 ml 11/04/20 00:00 11/05/20 07:41 0.9 % Sodium Chloride Flush 3 Ml Syringe IVFLUSH 3 ml QSHIFT DALTON Administration Spironolactone 25 mg 11/04/20 09:00 11/05/20 07:43 Spironolactone 25 Mg Tablet PO 25 mg DAILY DALTON Administration Protocol Tamsulosin HCl 0.4 mg 11/03/20 21:00 11/04/20 20:56 Tamsulosin Hcl 0.4 Mg Capsule PO 0.4 mg BEDTIME DALTON Administration Torsemide 20 mg 11/04/20 09:00 11/05/20 07:43 Torsemide 20 Mg Tablet PO 20 mg DAILY DALTON Administration Protocol Vitamin D 50 mcg 11/04/20 09:00 11/05/20 07:42 Cholecalciferol (Vitamin D3) 25 Mcg Tablet PO 50 mcg DAILY DALTON Administration Labs CBC & Chem 7: 11/04/20 06:17 11/04/20 06:17 Labs: Laboratory Results - last 24 hr 11/04/20 11/04/20 11/05/20 16:10 20:49 05:53 POC Glucose 202 H 183 H Vancomycin Trough 10.9 11/05/20 11/05/20 06:57 11:02 POC Glucose 208 H 152 H Vancomycin Trough Microbiology Microbiology Results: Microbiology 11/03/20 17:13 Blood Culture - Preliminary Blood - Venous No growth after 24 hours. 11/03/20 17:14 Blood Culture - Preliminary Blood - Venous No growth after 24 hours. Assessment and Plan (1) Varicose veins of left lower extremity with inflammation: Status: Acute (2) Lymphedema: Status: Acute (3) Varicose veins of right lower extremity with inflammation: Status: Acute Assessment and Plan: 69-year-old male with a past medical history of hypertension, hyperlipidemia, diabetes, atrial flutter, history of gout, chronic kidney disease, venous stasis, history of abscesses ulcers/chronic leg wounds-follows Wound Clinic; pulmonary hypertension, morbid obesity, ARIEL-not on CPAP presented to the hospital with a chief complaint of increased pain redness and swelling of bilateral legs; noted to have cellulitis/dermatitis/osteomyelitis. Chronic venous stasis/dermatitis/left tibial osteomyelitis seen on xray Continue vancomycin and ceftriaxone.( ID is recommending CT and if there is no osteo, then oral Abx, CT not yet done Vascular recommend conservative management and outpatient f/u Diabetes:? Lantus and sliding scale History of recurrent UTIs:? Patient on methenamine hippurate History of a flutter:? Continue home Eliquis History of chronic kidney disease:? Patient baseline creatinine around 1.4.? Will continue to monitor Hx ARIEL: c/w home CPAP at bedtime Quality Stroke Does the patient have a stroke diagnosis?: No VTE Prior VTE?: No VTE Risk Level:: Medical - moderate - high VTE Device Contraindication: Treatment Not Indicated VTE Drug Contraindication: N/A - Med Ordered
[2020-11-05 15:46] LABS: Glucose, Whole Blood 234 mg/dL (60-115)
[2020-11-05] MEDS: cefTRIAXone sodium 1 GM in 0.9 % Sodium Chloride 50 ML IV (17:06)
[2020-11-05 17:53] LABS: Glucose, Whole Blood 217 mg/dL (60-115)
[2020-11-05 20:45] LABS: Glucose, Whole Blood 151 mg/dL (60-115)
[2020-11-05] MEDS: Tamsulosin HCL 0.4 MG CAPSULE PO (20:50)
[2020-11-05] MEDS: Insulin Glargine,Hum.rec.anlog 100 UNIT/ML 10 ML VIAL 20 UNIT SUBCUT (20:50)
[2020-11-05] MEDS: Pravastatin Sodium 40 MG TABLET PO (20:50)
[2020-11-05 23:46] VITALS: BP 169/70; PULSE 60; RESP 18; TEMP 36.4; O2SAT 98
[2020-11-06 03:40] VITALS: BP 157/73; PULSE 58; RESP 20; TEMP 37; O2SAT 98
[2020-11-06 07:32] LABS: Glucose, Whole Blood 216 mg/dL (60-115)
[2020-11-06 07:46] VITALS: BP 159/63; PULSE 59; RESP 18; TEMP 35.9; O2SAT 99
[2020-11-06] MEDS: Insulin Lispro 100 UNIT/ML 3 ML VIAL SUBCUT ×2 (08:26→11:51)
[2020-11-06] MEDS: vancomycin HCL 1,000 MG in 0.9 % Sodium Chloride 250 ML 270 MG IV (08:26)
[2020-11-06 08:27] VITALS: BP 159/63; PULSE 59
[2020-11-06] MEDS: Ascorbic Acid 500 MG TABLET 1000 MG PO (08:27)
[2020-11-06] MEDS: Cholecalciferol (Vitamin D3) 25 MCG TABLET 50 MCG PO (08:27)
[2020-11-06] MEDS: Cyanocobalamin (Vitamin B-12) 500 MCG TABLET 2000 MCG PO (08:27)
[2020-11-06] MEDS: Spironolactone 25 MG TABLET PO (08:27)
[2020-11-06] MEDS: allopurinoL 300 MG TABLET PO (08:27)
[2020-11-06] MEDS: Torsemide 20 MG TABLET PO (08:27)
[2020-11-06] MEDS: 0.9 % Sodium Chloride Flush 3 ML SYRINGE IVFLUSH (08:28)
[2020-11-06] MEDS: Apixaban 5 MG TABLET PO (08:28)
[2020-11-06 09:18] LABS: Creatinine Clr Calc Pharmacy 80.4; Estimated Glomerular Filt Rate 50
[2020-11-06 11:09] LABS: Glucose, Whole Blood 210 mg/dL (60-115)
--- NOTE | 2020-11-06 11:47 | P.PNVS_ITS ---
Subjective Subjective Date of Service: 11/06/20 Patient reports: no new complaints and feels better Interval history: Patient doing significantly better. Anxious to leave. He is completing course of IV antibiotics and is being subsequently discharged. Physical Exam Vital Signs: Vital Signs: Last Vital Signs Temp 96.6 F L 11/06/20 07:46 Pulse 59 11/06/20 08:27 Resp 18 11/06/20 07:46 BP 159/63 H 11/06/20 08:27 Pulse Ox 99 11/06/20 07:46 Body Mass Index 58.4 Const: General: cooperative, healthy appearing and comfortable Orientation/consciousness: oriented to person, oriented to place and oriented to time Neck: Carotids: no bruits Chest: Chest palpation & inspection: normal inspection of the chest and normal palpation of entire chest wall Resp: Effort & Inspection: normal respiratory effort and able to speak in complete sentences Cardio: Rate: regular rate Heart sounds: S1 normal heart sound present and S2 normal heart sound present Peripheral pulses: Peripheral pulses 2+ throughout GI: Inspection: Yes normal to inspection Skin: Other: +2 edema, large rope-like varicosities greater than 3 mm Gen eral skin exam: dry skin Neuro: General: oriented to person, oriented to place and oriented to time Extrem: General: Yes edema Right lower extremity: full ROM, normal capillary refill and edema Left lower extremity: full ROM, normal capillary refill and edema Psych: Mental Status: mental status grossly normal Progress Note: A&P Assessment and plan (1) Varicose veins of left lower extremity with inflammation: Status: Acute Assessment and Plan: In short patient has significant reflux. He is doing better since admission and edema has decreased. Would continue with local wound care. He is in need of great saphenous vein ablation. He will follow up with us as an outpatient. I did give him a business card and we will arrange outpatient follow-up. Thank you for allowing us to assist in his care. If there are any questions or concerns please do not hesitate to contact us. Fall Risk Details Current Medications: Current Medications Generic Name Dose Route Start Last Admin Trade Name Freq PRN Reason Stop Dose Admin Acetaminophen 650 mg 11/03/20 20:23 11/05/20 00:20 Acetaminophen 325 Mg Tablet PO 650 mg Q6H PRN Administration Pain, Mild (Pain Scale 1-3) Allopurinol 300 mg 11/04/20 09:00 11/06/20 08:27 Allopurinol 300 Mg Tablet PO 300 mg DAILY DALTON Administration Apixaban 5 mg 11/03/20 21:00 11/06/20 08:28 Apixaban 5 Mg Tablet PO 5 mg BID DALTON Administration Ascorbic Acid 1,000 mg 11/03/20 21:00 11/06/20 08:27 Ascorbic Acid 500 Mg Tablet PO 1,000 mg BID DALTON Administration Cyanocobalamin 2,000 mcg 11/04/20 09:00 11/06/20 08:27 Cyanocobalamin (Vitamin B-12) 500 Mcg Tablet PO 2,000 mcg DAILY DALTON Administration Dextrose 25 gm 11/03/20 20:23 Dextrose 50 % 25 Gm/50 Ml Vial IVPUSH Q15M PRN per Hypoglycemia Standing Ord. Protocol Glucose 15 gm 11/03/20 20:23 Glucose Gel 15 Gm Gel..Gram. PO Q15M PRN per Hypoglycemia Standing Ord. Protocol Ceftriaxone Sodium 1 gm/ 50 mls @ 100 mls/hr 11/04/20 18:00 11/05/20 17:38 Sodium Chloride IV Infused Q24H [facility] Infusion Vancomycin HCl 1,000 mg/ 270 mls @ 270 mls/hr 11/05/20 09:00 11/06/20 10:24 Sodium Chloride IV Infused Q12H [facility] Infusion Insulin Glargine 20 unit 11/03/20 21:00 11/05/20 20:50 Insulin Glargine,Hum.Rec.Anlog 100 Unit/Ml 10 Ml Vial SUBCUT 20 unit BEDTIME D[facility] Administration Insulin Human Lispro 0 unit 11/03/20 21:00 11/06/20 08:26 Insulin Lispro 100 Unit/Ml 3 Ml Vial SUBCUT 4 unit QIDACHS D[facility] Administration Protocol Melatonin 6 mg 11/03/20 20:23 Melatonin 3 Mg Tablet PO BEDTIME PRN Insomnia Pt Own Med: 1 each 11/04/20 21:00 11/06/20 08:30 Methenamine Harshal 1gm PO 1 each Tab BIDWM D[facility] Administration Oxycodone HCl 5 mg 11/03/20 20:23 Oxycodone Hcl Immed Release 5 Mg Tablet PO Q6H PRN Pain, Severe (Pain Scale 7-10) Pharmacy Consult 1 each 11/03/20 18:14 Consult Rx Perform Med Rec MISCELLANE ONCE PRN Consult order Pharmacy Consult 1 each 11/03/20 20:21 Consult Rx Vancomycin Dosing MISCELLANE DAILY PRN Consult order Pravastatin Sodium 40 mg 11/03/20 21:00 11/05/20 20:50 Pravastatin Sodium 40 Mg Tablet PO 40 mg BEDTIME D[facility] Administration Senna 17.2 mg 11/03/20 20:23 Sennosides 8.6 Mg Tablet PO BEDTIME PRN Constipation Sodium Chloride 3 ml 11/04/20 00:00 11/06/20 08:28 0.9 % Sodium Chloride Flush 3 Ml Syringe IVFLUSH 3 ml QSHIFT D[facility] Administration Spironolactone 25 mg 11/04/20 09:00 11/06/20 08:27 Spironolactone 25 Mg Tablet PO 25 mg DAILY D[facility]TON Administration Protocol Tamsulosin HCl 0.4 mg 11/03/20 21:00 11/05/20 20:50 Tamsulosin Hcl 0.4 Mg Capsule PO 0.4 mg BEDTIME D[facility]TON Administration Torsemide 20 mg 11/04/20 09:00 11/06/20 08:27 Torsemide 20 Mg Tablet PO 20 mg DAILY DALTON Administration Protocol Vitamin D 50 mcg 11/04/20 09:00 11/06/20 08:27 Cholecalciferol (Vitamin D3) 25 Mcg Tablet PO 50 mcg DAILY DALTON Administration Time Spent With Patient Time: Total time spent is greater than 50% in coordination of care (as documented) at patient's floor/unit and/or counseling patient: Time with patient: 15 - 24 minutes Procedures Date of Service Date of Service: 11/06/20 Quality Stroke Does the patient have a stroke diagnosis?: No VTE Prior VTE?: No VTE Risk Level:: Medical - moderate - high VTE Device Contraindication: Treatment Not Indicated VTE Drug Contraindication: N/A - Med Ordered
--- NOTE | 2020-11-06 13:27 | PM.DS ---
DS: Providers Provider Date of Service: 11/06/20 Date of admission: 11/03/20 20:23 Primary care physician: Guzman Edouard Consults: 11/03/20 20:21 Consult to Infectious Diseases Routine Consulting Provider: Citlali Foley Reason for consultation: Osteomyelitis; leg wounds/cellulitis Consult to Vascular Surgery Routine Consulting Provider: Darío Starkey Reason for consultation: Osteomyelitis; leg wounds/cellulitis 11/05/20 08:12 Consult to Wound Care Routine Consulting Provider: [facility] [place] Wound Care Management Reason for consultation: bilateral leg wounds Has provider been notified: No DS: Diagnosis Discharge Diagnosis (1) Varicose veins of left lower extremity with inflammation: Status: Acute DS: Medications Discharge Medications Home Medications: Home Medications Medication Instructions Recorded Confirmed allopurinol 300 mg tablet 300 mg PO DAILY 11/03/20 11/03/20 ascorbic acid (vitamin C) 1,000 mg 1,000 mg PO BID 11/03/20 11/03/20 tablet (Vitamin C) cholecalciferol (vitamin D3) 50 50 mcg PO DAILY 11/03/20 11/03/20 mcg (2,000 unit) capsule cyanocobalamin (vitamin B-12) 2,000 mcg PO DAILY 11/03/20 11/03/20 1,000 mcg tablet insulin aspart U-100 100 unit/mL 5 unit SUBCUT DAILY@1200 11/03/20 11/03/20 subcutaneous solution (Novolog U-100 Insulin aspart) insulin aspart U-100 100 unit/mL 12 unit SUBCUT DAILY@1700 11/03/20 11/03/20 subcutaneous solution (Novolog U-100 Insulin aspart) insulin glargine 100 unit/mL 35 unit SUBCUT QAM 11/03/20 11/03/20 subcutaneous cartridge methenamine hippurate 1 gram tablet 1 g PO BID 11/03/20 11/03/20 pravastatin 40 mg tablet 40 mg PO BEDTIME 11/03/20 11/03/20 spironolactone 25 mg tablet 25 mg PO DAILY 11/03/20 11/03/20 tamsulosin 0.4 mg capsule 0.4 mg PO BEDTIME 11/03/20 11/03/20 torsemide 20 mg tablet 20 mg PO DAILY 11/03/20 11/03/20 Previous Rx's Medication Instructions Recorded apixaban 5 mg tablet (Eliquis) 5 mg PO BID 30 Days #60 tab 03/26/20 DS: Summary Hospital Course Hospital Course: Date of Service: 11/03/20 Chief Complaint: Bilateral leg pain redness and swelling 69-year-old male with a past medical history of hypertension, hyperlipidemia, diabetes, morbid obesity, ARIEL- on CPAP, history of pulmonary hypertension, atrial flutter on Eliquis, history of recurrent UTIs on chronic nitrofurantoin, history of venous stasis, venous stasis ulcers, chronic leg wounds-follows with Wound Clinic, chronic kidney disease with baseline creatinine around 1.4; presented to the hospital with a chief complaint of left leg increased redness, swelling and pain. Patient mentions that he has been having chronic leg wounds secondary to venous stasis; but today he noticed increased swelling of bilateral legs but noted serosanguineous discharge on the left like; went to the Wound Clinic and subsequently sent to the ER for further evaluation. Patient denies any chest pain palpitations lightheadedness or dizziness. Patient denies any fever chills cough. Patient denies any urinary symptoms or GI symptoms Review of all other systems is negative except mentioned above ER course:? Patient had x-rays done which showed left tibial osteomyelitis; given ceftriaxone and vancomycin.? Admitted to the hospital for further management. Patient was admitted and started Vancomycin and Ceftriaxone, He was seen by ID and recommended a CT of the leg which unlike xray didn't show any evidence of osteomylitis and as such ID is recommending Doxycyline for cellulitis and follow up with Wound Care. He was also seen by Dr. Starkey who will seen in the office for further vascular studies. Cultures have been negative. Advised to lose weight for morbid obesity pain Final diagnosis: Cellulitis of the legs. Lymphedema of both leg pain Diabetes Morbid obese Hypertension. Time Spent with Patient Time attestation: Total time spent providing and/or coordinating discharge services: Discharge coordination time: Greater than 30 minutes Quality: Stroke Does the patient have a stroke diagnosis?: No Physical Exam Vital Signs: Vital Signs: Last Vital Signs Temp 96.6 F L 11/06/20 07:46 Pulse 59 11/06/20 08:27 Resp 18 11/06/20 07:46 BP 159/63 H 11/06/20 08:27 Pulse Ox 99 11/06/20 07:46 Body Mass Index 58.4 DS: Data Data Completed and Pending Labs on day of discharge: Laboratory Results - last 24 hr 11/05/20 11/05/20 11/05/20 15:40 17:49 20:40 Creatinine Estim Creat Clear Calc Estimated GFR POC Glucose 234 H 217 H 151 H 11/06/20 11/06/20 11/06/20 07:05 08:18 11:05 Creatinine 1.40 Estim Creat Clear Calc 80.4 Estimated GFR 50 POC Glucose 216 H 210 H Preliminary micro results at discharge 11/03/20 17:13 Blood Culture - Preliminary Blood - Venous No growth after 48 hours. 11/03/20 17:14 Blood Culture - Preliminary Blood - Venous No growth after 48 hours. Discharge Plan Discharge Anticipated Discharge Date/Time: 11/06/20 13:32 Patient Disposition: Home Health Service Discharge Diagnosis: Cellulitis of the leg Referrals: Guzman Edouard [Primary Care Provider] - 1 Week Discharge Medications: New doxycycline hyclate 100 mg tablet 100 mg PO BID Qty: 20 RF: 0 Continued Eliquis 5 mg tablet 5 mg PO BID 30 Days Qty: 60 RF: 5 torsemide 20 mg Tablet 20 mg PO DAILY RF: 0 spironolactone 25 mg Tablet 25 mg PO DAILY RF: 0 methenamine hippurate 1 gram Tablet 1 g PO BID RF: 0 tamsulosin 0.4 mg Capsule 0.4 mg PO BEDTIME RF: 0 insulin aspart U-100 [Novolog U-100 Insulin aspart] 100 unit/mL Solution 5 unit SUBCUT DAILY@1200 RF: 0 insulin aspart U-100 [Novolog U-100 Insulin aspart] 100 unit/mL Solution 12 unit SUBCUT DAILY@1700 RF: 0 Lantus U-100 Insulin 100 unit/mL Cartridge 35 unit SUBCUT QAM RF: 0 ascorbic acid (vitamin C) [Vitamin C] 1,000 mg Tablet 1,000 mg PO BID RF: 0 pravastatin 40 mg Tablet 40 mg PO BEDTIME RF: 0 cyanocobalamin (vitamin B-12) 1,000 mcg Tablet 2,000 mcg PO DAILY RF: 0 allopurinol 300 mg Tablet 300 mg PO DAILY RF: 0 cholecalciferol (vitamin D3) 50 mcg (2,000 unit) Capsule 50 mcg PO DAILY RF: 0 Discharge Orders: Discharge Order (Routine); Ordered 11/06/20 Ordered By: Masood Mlapah Diet: advance to usual diet and diabetic diet Activity on Discharge: As tolerated Stand Alone Forms: Patient Portal Discharge page Care Plan Goals: prevent rehospitalization and management of lymphadema Health Concerns: Lymphadema with cellulitis Plan of Treatment: Take doxycycline as recommended and follow up with Dr. Starkey, wound Care Clinic, and your primary care physician P Assessment: See above
--- NOTE | 2020-11-06 14:35 | MHC.CM.PN ---
PT CLEARED TO DC HOME TODAY ON PO ANTIBIOTICS. CM MET WITH PT TO DISCUSS DC PLANS. PT REPORTS HE DOES NOT FEEL HE NEEDS [facility] AT DC HE HAS A COUPLE OF BROTHERS NEARBY THAT CHECK IN ON HIM. PT WILL DC HOME TODAY WITH NO SERVICES FAMILY WILL TRANSPORT
--- NOTE | 2020-11-07 13:52 | P.CONWO_ITS ---
History of Present Illness Data of Consult Service Date: 11/05/20 Primary Care Provider: Guzman Edouard [facility] Reason for consult: venous wounds The pt is a 69 year old male who is known to us earlier this summer in wound care due to venous hypertension and ulcerated wounds which is now improved. He came into the hospital now for other issues and has been seen by dr Starkey who has ordered venous ultrasound studies which show reflux disease amenable to ablation. He has no current open wounds but not consistently wearing compression. He has some [employer] he likes to use but they are stretching out. Review of Systems Review of Systems: Seen in f/u for osteomylitis, no new issues Yes all other systems are reviewed and are negative Constitutional: Constitutional: Reports as per HPI and Reports no additional constitutional complaints Eyes: Eyes: Reports as per HPI ENT: Reports system reviewed and no additional complaints, except as documented and Reports as per HPI Cardiovascular: Cardiovascular: Reports as per HPI, Reports no additional cardiovascular complaints, Denies chest pain, Denies chest pain at rest and Denies chest pain with activity Respiratory: Respiratory: Reports as per HPI, Reports no additional respiratory complaints, Denies chest congestion and Denies cough Gastrointestinal: Gastrointestinal: Reports as per HPI and Reports no additional gastrointestinal complaints Genitourinary: Genitourinary: Reports no additional male genitourinary complaints and Reports as per HPI Musculoskeletal: Musculoskeletal: Denies abnormal gait Integumentary/Breasts: Skin/Breast: Reports pruritus and Denies wounds Neurologic: Reports system reviewed and no additional complaints, except as documented, Reports as per HPI and Denies abnormal gait Psychiatric: Psychiatric: Denies no additional psychiatric complaints and Reports as per HPI [facility] Medical History Diabetes Hypertension Kidney disease Family history: reviewed and not pertinent Social History Household Members: Spouse Housing: House Do you presently have visiting nurse or other home services: No Patient Tobacco Use Status: Never used Tobacco service: Yes Current occupational status: retired Meds Allergies Allergy/AdvReac Type Severity Reaction Status Date / Time penicillin V Allergy Unknown Hallucinations, Verified 11/04/20 00:53 Sweats Penicillins AdvReac Intermediate HALLUCINATIONS, Verified 11/04/20 00:53 SWEATS Home Medications Medication Instructions Recorded Confirmed Last Taken Type allopurinol 300 mg tablet 300 mg PO DAILY 11/03/20 11/03/20 11/03/20 History ascorbic acid (vitamin C) 1,000 mg 1,000 mg PO BID 11/03/20 11/03/20 11/03/20 History tablet (Vitamin C) cholecalciferol (vitamin D3) 50 50 mcg PO DAILY 11/03/20 11/03/20 11/03/20 History mcg (2,000 unit) capsule cyanocobalamin (vitamin B-12) 2,000 mcg PO DAILY 11/03/20 11/03/20 11/03/20 History 1,000 mcg tablet insulin aspart U-100 100 unit/mL 5 unit SUBCUT DAILY@1200 11/03/20 11/03/20 11/03/20 History subcutaneous solution (Novolog U-100 Insulin aspart) insulin aspart U-100 100 unit/mL 12 unit SUBCUT DAILY@1700 11/03/20 11/03/20 11/02/20 History subcutaneous solution (Novolog U-100 Insulin aspart) insulin glargine 100 unit/mL 35 unit SUBCUT QAM 11/03/20 11/03/20 11/03/20 History subcutaneous cartridge methenamine hippurate 1 gram tablet 1 g PO BID 11/03/20 11/03/20 11/03/20 History pravastatin 40 mg tablet 40 mg PO BEDTIME 11/03/20 11/03/20 11/02/20 History spironolactone 25 mg tablet 25 mg PO DAILY 11/03/20 11/03/20 11/03/20 History tamsulosin 0.4 mg capsule 0.4 mg PO BEDTIME 11/03/20 11/03/20 11/02/20 History torsemide 20 mg tablet 20 mg PO DAILY 11/03/20 11/03/20 11/03/20 History Physical Exam Vital Signs and Narrative: Vital Signs: Last Vital Signs Temp 96.6 F L 11/06/20 07:46 Pulse 59 11/06/20 08:27 Resp 18 11/06/20 07:46 BP 159/63 H 11/06/20 08:27 Pulse Ox 99 11/06/20 07:46 Body Mass Index 58.4 Gen: Appears be in no acute distress; obese HEENT: NCAT, Moist mucosa. Pulmonary: Vesicular breath sounds, fair air entry CVS: Normal S1-S2 Abdomen: BS+, Soft, Nontender Extremities: Warm well perfused; bilateral legs has chronic skin changes, scaling; hyperemic-which she has increased as per the patient; left leg has increased redness up to the ankle and small skin abrasion/serosanguineous discharge noted. Neuro: Alert and awake. Const: General: cooperative, healthy appearing, comfortable, no acute distress, well developed, alert and awake Orientation/consciousness: oriented to person, oriented to place, oriented to time and patient oriented x3 HENMT: Head: Yes normal to inspection, Yes No palpable skull fracture present, Yes normocephalic and Yes atraumatic Mouth: Normal oral and palatal mucosa present Eyes: General: appearance normal, both eyes and all related structures Neck: Yes normal visual inspection, Yes full ROM, Yes no lymphadenopathy, Yes no meningeal signs, Yes trachea midline, Yes supple and No tender Carotids: no bruits Chest: Chest palpation & inspection: normal inspection of the chest and normal palpation of entire chest wall Resp: Effort & Inspection: normal respiratory effort and able to speak in complete sentences Cardio: Jugular venous distension: no JVD Rate: regular rate Rhythm: regular rhythm Heart sounds: S1 normal heart sound present and S2 normal heart sound present Peripheral pulses: Peripheral pulses 2+ throughout GI: Inspection: Yes normal to inspection and No abdominal wall ecchymosis Palpation (GI): Soft to palpation, not firm, nontender, no guarding and not rigid : General: No CVA tenderness and Yes no CVA tenderness Back/Spine/Pelvis: Back: no CVA tenderness, No CVA tenderness and No back tenderness Skin: Other: +2 edema, lower leg wounds very consistent with chronic venous changes - pigmentation, thickening and scaling of the skin no open wounds though General skin exam: no rashes or lesions noted, elasticity normal and dry skin Neuro: General: oriented to person, oriented to place, oriented to time, patient oriented x3, gait normal, no meningeal signs and CN's II-XI intact bilaterally Cranial nerves: Yes CN's II-XII intact bilaterally Extrem: Other: Bilateral lower extremities shows chronic venous stasis changes with dry scaly skin. With serosanguineous mild drainage. Negative for any foul odor or yellow/green pus discharge. Negative for any tenderness on palpation. General: Yes edema Right lower extremity: full ROM, normal capillary refill and edema Left lower extremity: full ROM, normal capillary refill and edema Psych: Appearance: grossly normal, well kempt and not disheveled Mental Status: mental status grossly normal Results Labs CBC and Chem 7: 11/04/20 06:17 11/06/20 08:18 Assessment and Plan (1) Varicose veins of left lower extremity with inflammation: Status: Acute In short patient has significant reflux. He is doing better since admission and edema has decreased. Would continue with local wound care. He is in need of great saphenous vein ablation. He will follow up with us as an outpatient. I did give him a business card and we will arrange outpatient follow-up. Thank you for allowing us to assist in his care. If there are any questions or concerns please do not hesitate to contact us. pt needs to be wearing compression - can do at least [employer] measured out to him and to f.u with dr Starkey for ablation procedure. can f.u with us as outpt in the Wound care clinic if wounds open up. he understands and agrees with the plan
== END 2020-11-06 14:55 | disposition home health service (06) | DRG 603 ==
LOC: HO.ED 18:21 → HO.IMC 21:05
PROVIDERS: Physician Assistant; Admitting Provider Hospitalist; Emergency Provider Emergency Medicine Emergency Medical Services; PCP Internal Medicine; Visit Provider Internal Medicine
DX: L03.116 Cellulitis of left lower limb (principal); Z68.43 Body mass index [BMI] 50.0-59.9, adult; L03.115 Cellulitis of right lower limb; I87.323 Chronic venous hypertension (idiopathic) with inflammation of bilateral lower extremity; E78.5 Hyperlipidemia, unspecified; Z87.440 Personal history of urinary (tract) infections; I12.9 Hypertensive chronic kidney disease with stage 1 through stage 4 chronic kidney disease, or unspecified chronic kidney disease; E11.22 Type 2 diabetes mellitus with diabetic chronic kidney disease; N18.9 Chronic kidney disease, unspecified; E66.01 Morbid (severe) obesity due to excess calories; G47.33 Obstructive sleep apnea (adult) (pediatric); I83.12 Varicose veins of left lower extremity with inflammation; I83.11 Varicose veins of right lower extremity with inflammation; Z99.89 Dependence on other enabling machines and devices; Z20.822 Contact with and (suspected) exposure to COVID-19; Z88.0 Allergy status to penicillin; Z79.2 Long term (current) use of antibiotics; Z79.4 Long term (current) use of insulin; Z79.01 Long term (current) use of anticoagulants; Z79.899 Other long term (current) drug therapy
CPT/HCPCS: 36415; 73590; 73701; 80048; 80053; 80202; 82565; 82947; 83605; 85025; 85610; 85652; 85730; 86140; 87040; 87635; 93970; 99285; J0696; J3370; Q9967

== ENCOUNTER 2020-11-13 13:41 | Outpatient (RCR) | payer MEDICARE, SELFPAY | END 2020-11-17 15:05 | disposition home or self-care (01) | LOC: HO.WCC 13:41 | PROVIDERS: PCP Internal Medicine; Visit Provider Physician Assistant | DX: E11.65 Type 2 diabetes mellitus with hyperglycemia (principal); I87.303 Chronic venous hypertension (idiopathic) without complications of bilateral lower extremity; I87.2 Venous insufficiency (chronic) (peripheral); M79.89 Other specified soft tissue disorders | CPT/HCPCS: 99212 ==

== ENCOUNTER → 2020-11-19 13:30 | Outpatient (BNVA) | payer OTHER, MEDICARE, SELFPAY | PROVIDERS: PCP Internal Medicine; Visit Provider Surgery Vascular Surgery | DX: I83.12 Varicose veins of left lower extremity with inflammation (principal) | CPT/HCPCS: 99212 ==

== ENCOUNTER → 2020-12-11 10:16 | Outpatient (BNVA) | payer OTHER, SELFPAY | PROVIDERS: PCP Internal Medicine; Referring Provider Internal Medicine; Visit Provider Surgery Vascular Surgery | DX: I83.12 Varicose veins of left lower extremity with inflammation (principal) | CPT/HCPCS: 36482 ==

== ENCOUNTER 2020-12-14 12:21 | Outpatient (REF) | payer MEDICARE, SELFPAY ==
--- NOTE | ~2020-12-14 | US_ITS ---
EXAMINATION: US VENOUS ULTRASOUND WITH DOPPLER LOWER EXTREMITY, LEFT CLINICAL INFORMATION: Rule out DVT. Post venous procedure 3 days ago COMPARISON: Previous exam November 2020 TECHNIQUE: Ultrasound of the deep veins is performed from the hip to the calf with compression sonography and color and pulse Doppler assessment. Spectral analysis with color-flow imaging is performed. FINDINGS: There is normal venous compression and respiratory variation and augmented flow. The visualized common femoral vein, superficial femoral vein, profunda femoral vein, popliteal vein, and the trifurcation region shows no evidence of deep venous thrombosis. There is echogenic material seen in the left greater saphenous vein post venous procedure. This is 4.6 cm from the saphenofemoral junction. There is no popliteal fossa cyst. US/US venous duplex LE IMPRESSION: No DVT demonstrated in the left lower extremity.
== END 2020-12-14 12:22 | disposition home or self-care (01) ==
LOC: HO.US 12:21
PROVIDERS: PCP Internal Medicine; Visit Provider Surgery Vascular Surgery
DX: M79.605 Pain in left leg (principal)
CPT/HCPCS: 93971

== ENCOUNTER → 2020-12-24 13:02 | Outpatient (BNVA) | payer MEDICARE, SELFPAY | PROVIDERS: PCP Internal Medicine; Visit Provider Surgery Vascular Surgery | DX: I83.12 Varicose veins of left lower extremity with inflammation (principal); E66.01 Morbid (severe) obesity due to excess calories | CPT/HCPCS: 99212 ==

== ENCOUNTER → 2021-01-21 13:49 | Outpatient (BNVA) | payer MEDICARE, SELFPAY | PROVIDERS: PCP Internal Medicine; Visit Provider Surgery Vascular Surgery | DX: I83.12 Varicose veins of left lower extremity with inflammation (principal) | CPT/HCPCS: 99212 ==

== ENCOUNTER 2021-04-08 15:11 | Emergency (ER) | payer MEDICARE, SELFPAY ==
[2021-04-08 15:49] VITALS: BP 156/70; PULSE 70; RESP 18; TEMP 36.6; O2SAT 98; BMI 59.6
[2021-04-08 16:20] LABS: Appearance Urine CLEAR; Color Urine YELLOW; Glucose Urine UA NEG (NEG); Leukocyte Esterase Urine 2+ (NEG); Nitrite Urine POS (NEG); Specific Gravity - Urine 1.015 (1.005-1.025); UACC Culture Trigger YES; Urine Blood 1+ (NEG); Urine Ketones NEG (NEG); Urine Protein 2+ MG/DL (NEG-TRACE)
[2021-04-08 16:43] LABS: Bacteria Urine 3+ /LPF; RBC Urine 0-2 /HPF (0); Squamous Epithelial Cell Urine TRACE /LPF; WBC Urine 30-49 /HPF (0-4)
[2021-04-08 17:19] LABS: MANUAL DIFF FLAG NO
[2021-04-08 17:28] LABS: Basophils Percent Auto 0.2 % (0-2); Eosinophils Absolute Auto 0.2 X10*3/uL (0.0-0.4); Eosinophils Percent Auto 1.9 % (0-4); Hematocrit 43.5 % (42.0-52.0); Hemoglobin 13.9 g/dl (14.0-18.0); Imm Gran Pct Auto 1.9 % (0.0-0.4); Lymphocytes Absolute Auto 0.7 X10*3/uL (1.2-4.9); Lymphocytes Percent Auto 6.8 % (20-40); Mean Corpuscular Hemoglobin 29.8 pg (27.0-33.0); Mean Corpuscular Volume 93.1 fL (80.0-98.0); Mean Platelet Volume 10.9 fL (9.4-12.4); Monocytes Absolute Auto 0.5 X10*3/uL (0.1-1.2); Monocytes Percent Auto 4.5 % (2-11); Neutrophils Absolute Auto 8.9 x10*3/uL (2.0-8.3); Neutrophils Percent Auto 84.7 % (45-73); Platelet Count 230 X10*3/uL (160-400); Red Blood Count 4.67 X10*6/uL (4.60-5.80); Red Cell Distribution Width 14.3 % (11.0-16.0); White Blood Count 10.5 X10*3/uL (4.8-10.8)
[2021-04-08 17:41] LABS: Alanine Aminotransferase 13 U/L (0-40); Albumin Level 3.8 g/dL (3.5-5.0); Alkaline Phosphatase 84 U/L (39-117); Anion Gap 13 (12-20); Aspartate Amino Transferase 13 U/L (5-37); Bilirubin Total 0.4 mg/dL (0.0-1.0); Blood Urea Nitrogen 41 mg/dL (9-16); Calcium 8.8 mg/dL (8.4-10.2); Carbon Dioxide 27 mmol/L (22-29); Chloride 104 mmol/L (96-108); Creatinine Clr Calc Pharmacy 66.1; Estimated Glomerular Filt Rate 40; Glucose Random 249 mg/dL (60-115); Potassium 4.5 mmol/L (3.3-5.1); Sodium 139 mmol/L (135-145); Total Protein 7.3 g/dL (6.5-8.0)
--- NOTE | 2021-04-09 05:28 | ED_ITS ---
HPI - Male Genitourinary General Chief complaint: Urogenital-Male Stated complaint: UTI Time Seen by Provider: 04/09/21 05:10 Source: patient Mode of arrival: ambulatory History of Present Illness HPI Narrative: 70-year-old male who arrives with presentation for dysuria since 2:00 a.m. today, frequency, and hazy/cloudy urine. He reports a 4/10 pain with urination but denies any nausea, vomiting, abdominal pain, fevers, chills and states that he has had multiple UTIs in the past. Related Data Home Medications Medication Instructions Recorded Confirmed allopurinol 300 mg tablet 300 mg PO DAILY 11/03/20 11/03/20 ascorbic acid (vitamin C) 1,000 mg 1,000 mg PO BID 11/03/20 11/03/20 tablet (Vitamin C) cholecalciferol (vitamin D3) 50 50 mcg PO DAILY 11/03/20 11/03/20 mcg (2,000 unit) capsule cyanocobalamin (vitamin B-12) 2,000 mcg PO DAILY 11/03/20 11/03/20 1,000 mcg tablet insulin aspart U-100 100 unit/mL 5 unit SUBCUT DAILY@1200 11/03/20 11/03/20 subcutaneous solution (Novolog U-100 Insulin aspart) insulin aspart U-100 100 unit/mL 12 unit SUBCUT DAILY@1700 11/03/20 11/03/20 subcutaneous solution (Novolog U-100 Insulin aspart) insulin glargine 100 unit/mL 35 unit SUBCUT QAM 11/03/20 11/03/20 subcutaneous cartridge methenamine hippurate 1 gram tablet 1 g PO BID 11/03/20 11/03/20 pravastatin 40 mg tablet 40 mg PO BEDTIME 11/03/20 11/03/20 spironolactone 25 mg tablet 25 mg PO DAILY 11/03/20 11/03/20 tamsulosin 0.4 mg capsule 0.4 mg PO BEDTIME 11/03/20 11/03/20 torsemide 20 mg tablet 20 mg PO DAILY 11/03/20 11/03/20 Previous Rx's Medication Instructions Recorded apixaban 5 mg tablet (Eliquis) 5 mg PO BID 30 Days #60 tab 03/26/20 doxycycline hyclate 100 mg tablet 100 mg PO BID #20 tab 11/06/20 cefdinir 300 mg capsule 300 mg PO Q12H 7 Days #14 cap 04/09/21 Allergies Allergy/AdvReac Type Severity Reaction Status Date / Time penicillin V Allergy Unknown Hallucinations, Verified 04/08/21 15:49 Sweats Penicillins AdvReac Intermediate HALLUCINATIONS, Verified 04/08/21 15:49 SWEATS Review of Systems Review of Systems: Pertinent positives and negatives as stated in HPI 10 point review of systems is otherwise negative. PMFSH Past Medical History Source: nursing notes reviewed Medical History Diabetes Hypertension Kidney disease Social History Social History Household Members: Spouse Housing: House Do you presently have visiting nurse or other home services: No Patient Tobacco Use Status: Never used Tobacco Advance Directives: No Advance Directives Information Provided: Yes service: Yes Current occupational status: retired Physical Exam Vital Signs: Vital Signs: Last Vital Signs Temp 98 F 04/08/21 15:49 Pulse 70 04/08/21 15:49 Resp 18 04/08/21 15:49 BP 156/70 H 04/08/21 15:49 Pulse Ox 98 04/08/21 15:49 BMI result Body Mass Index 59.6 VITAL SIGNS: Reviewed. GENERAL: Morbidly obese, Well developed, well nourished, in no acute distress. HEAD: Normocephalic/atraumatic EYES: PERRLA, EOMI OROPHARYNX: no oral lesions noted, posterior pharynx clear LUNGS: Normal breath sounds. No adventitious sounds or accessory muscle use. SpO2<98> CARDIOVASCULAR: Regular rate and rhythm without noted murmurs ABDOMEN: Soft, non-tender, non-distended with bowel sounds. NEUROLOGIC: Alert and oriented x 4. Course Course Course Narrative: 70-year-old male with history and clinical presentation consistent with dysuria and on review of all investigations patient is noted to have a UTI. He received initial dose of Macrobid here in the emergency room but was discharged on 3rd generation cephalosporin for remaining course and has a follow-up appointment with his urologist as well as his PCP. MDM - Male Genitourinary Lab Data Result diagrams: 04/08/21 17:15 04/08/21 17:15 Labs: Lab Results 0104/08/21 04/08/21 Range/Units 16:09 17:15 17:15 WBC 10.5 (4.8-10.8) X10*3/uL RBC 4.67 (4.60-5.80) X10*6/uL Hgb 13.9 L (14.0-18.0) g/dl Hct 43.5 (42.0-52.0) % MCV 93.1 (80.0-98.0) fL MCH 29.8 (27.0-33.0) pg MCHC 32.0 (31.0-36.0) g/dl RDW 14.3 (11.0-16.0) % Plt Count 230 (160-400) X10*3/uL MPV 10.9 (9.4-12.4) fL Immature Gran % (Auto) 1.9 H (0.0-0.4) % Neut % (Auto) 84.7 H (45-73) % Lymph % (Auto) 6.8 L (20-40) % [place] % (Auto) 4.5 (2-11) % Eos % (Auto) 1.9 (0-4) % Baso % (Auto) 0.2 (0-2) % Lymph # (Auto) 0.7 L (1.2-4.9) X10*3/uL [place] # (Auto) 0.5 (0.1-1.2) X10*3/uL Eos # (Auto) 0.2 (0.0-0.4) X10*3/uL Baso # (Auto) 0.0 (0.0-0.2) X10*3/uL Abs Immat Gran (auto) 0.20 H (0.00-0.03) X10*3/uL Absolute Neuts (auto) 8.9 H (2.0-8.3) x10*3/uL Absolute Nucleated RBC 0.000 (0.0-0.012) X10*3/uL Nucleated RBC % (auto) 0.0 (0.0-0.2) /100WBC Sodium 139 (135-145) mmol/L Potassium 4.5 (3.3-5.1) mmol/L Chloride 104 (96-108) mmol/L Carbon Dioxide 27 (22-29) mmol/L Anion Gap 13 (12-20) BUN 41 H (9-16) mg/dL Creatinine 1.70 H (0.5-1.4) mg/dL Estim Creat Clear Calc 66.1 Estimated GFR 40 Random Glucose 249 H D (60-115) mg/dL Calcium 8.8 D (8.4-10.2) mg/dL Total Bilirubin 0.4 (0.0-1.0) mg/dL AST 13 (5-37) U/L ALT 13 (0-40) U/L Alkaline Phosphatase 84 (39-117) U/L Total Protein 7.3 (6.5-8.0) g/dL Albumin 3.8 (3.5-5.0) g/dL Urine Color YELLOW Urine Appearance CLEAR Urine pH 6.0 (5.0-8.0) Ur Specific [place] 1.015 (1.005-1.025) Urine Protein 2+ H (NEG-TRACE) MG/DL Urine Glucose (UA) NEG (NEG) MG/DL Urine Ketones NEG (NEG) MG/DL Urine Blood 1+ H (NEG) Urine Nitrite POS H (NEG) Ur Leukocyte Esterase 2+ H (NEG) Urine RBC 0-2 (0) /HPF Urine WBC 30-49 H (0-4) /HPF Ur Squamous Epith Cells TRACE /LPF Urine Bacteria 3+ /LPF Discharge Plan Discharge Clinical Impression: Urinary tract infection Patient Disposition: Home, Self-Care Instructions: Urinary Tract Infection in Men (ED) Additional Instructions: 1. Resume all home medications. 2. Complete the entire course of antibiotics. 3. Follow-up with your primary care provider and urologist as scheduled. Return to the ER for worsening symptoms. Prescriptions: New cefdinir 300 mg capsule 300 mg PO Q12H 7 Days Qty: 14 RF: 0 No Action Eliquis 5 mg tablet 5 mg PO BID 30 Days Qty: 60 RF: 5 torsemide 20 mg Tablet 20 mg PO DAILY RF: 0 spironolactone 25 mg Tablet 25 mg PO DAILY RF: 0 methenamine hippurate 1 gram Tablet 1 g PO BID RF: 0 tamsulosin 0.4 mg Capsule 0.4 mg PO BEDTIME RF: 0 insulin aspart U-100 [Novolog U-100 Insulin aspart] 100 unit/mL Solution 5 unit SUBCUT DAILY@1200 RF: 0 insulin aspart U-100 [Novolog U-100 Insulin aspart] 100 unit/mL Solution 12 unit SUBCUT DAILY@1700 RF: 0 insulin glargine 100 unit/mL Cartridge 35 unit SUBCUT QAM RF: 0 ascorbic acid (vitamin C) [Vitamin C] 1,000 mg Tablet 1,000 mg PO BID RF: 0 pravastatin 40 mg Tablet 40 mg PO BEDTIME RF: 0 cyanocobalamin (vitamin B-12) 1,000 mcg Tablet 2,000 mcg PO DAILY RF: 0 allopurinol 300 mg Tablet 300 mg PO DAILY RF: 0 cholecalciferol (vitamin D3) 50 mcg (2,000 unit) Capsule 50 mcg PO DAILY RF: 0 doxycycline hyclate 100 mg tablet 100 mg PO BID Qty: 20 RF: 0 Referrals: Guzman Edouard [Primary Care Provider] - 2 days Interventions: ED Discharge Assessment Last Done: 04/09/21 05:50 Discharge Date/Time: 04/09/21 05:50
[2021-04-09] MEDS: Nitrofurantoin Monohyd/M-Cryst 100 MG CAPSULE PO (05:44)
== END 2021-04-09 05:50 | disposition home or self-care (01) ==
PROVIDERS: Emergency Provider Student in an Organized Health Care Education/Training Program; PCP Internal Medicine
DX: N39.0 Urinary tract infection, site not specified (principal); E11.9 Type 2 diabetes mellitus without complications; I10 Essential (primary) hypertension; Z79.4 Long term (current) use of insulin
CPT/HCPCS: 36415; 80053; 81001; 85025; 87086; 87088; 87186; 99283

== ENCOUNTER 2022-05-02 18:01 | Inpatient (IN) | payer OTHER, MEDICARE, SELFPAY ==
--- NOTE | ~2022-05-02 | XR_ITS ---
EXAMINATION: XR CHEST CLINICAL INFORMATION: Chest pain. COMPARISON: May 02, 2022. TECHNIQUE: Portable AP view of the chest was obtained. XR/XR chest 1V FINDINGS/IMPRESSION: The study is significantly limited by portable technique, low lung volumes, and patient body habitus. There is no gross acute radiographic finding. No focal infiltrate, effusion, or pneumothorax is identified. The heart size is poorly evaluated. There are mild degenerative changes of the spine.
--- NOTE | ~2022-05-02 | CT_ITS ---
EXAMINATION: CT ABDOMEN AND PELVIS WITHOUT CONTRAST CLINICAL INFORMATION: Acute kidney injury, hypokalemia COMPARISON: 11/04/2019 TECHNIQUE: Multidetector volumetric imaging was performed from the superior aspect of the liver through the pubic symphysis. Sagittal and coronal reformatted images were obtained on the technologist's workstation. This CT examination was performed using dose optimization techniques as appropriate, variously including the following: *Automated exposure control *Adjustment of mA and/or kV according to patient size (this includes techniques or standardized protocols for targeted exams where dose is matched to indication/reason for exam; i.e. extremities or head) *Use of iterative reconstruction technique DLP: 1217 mGy-cm FINDINGS: Suboptimal assessment due to patient body habitus. LUNG BASES: The visualized lung bases are unremarkable. LIVER, GALLBLADDER, AND BILIARY TREE: The liver is normal in size, shape, and attenuation. No focal hepatic lesion or biliary ductal dilatation is identified. The gallbladder is unremarkable. PANCREAS: Mildly atrophic. SPLEEN: Unremarkable. ADRENAL GLANDS: There is an approximately 2 cm nodular density adjacent to the medial aspect of the posterior right adrenal gland and abutting the diaphragmatic yessy; this is similar to 11/04/2019. Left adrenal gland is unremarkable. KIDNEYS AND URETERS: The kidneys are normal in size, shape, and attenuation. No hydronephrosis, hydroureter, or calculi seen. No perinephric stranding. Redemonstrated bilateral renal cysts; no follow-up recommended. BLADDER: Unremarkable. GASTROINTESTINAL TRACT: Colonic diverticulosis is noted. The small and large bowel are otherwise unremarkable without evidence of obstruction or pericolonic inflammatory change. The appendix is unremarkable. No free fluid or free air is seen. ABDOMINAL WALL: No significant hernia is appreciated. LYMPH NODES: Normal. VASCULAR: Scattered atherosclerotic calcifications. PELVIC VISCERA: Unremarkable. OSSEOUS STRUCTURES: Degenerative changes are noted in the spine. CT/CT abdomen pelvis wo IV con IMPRESSION: Suboptimal assessment due to patient body habitus. No acute findings identified. Chronic changes as noted above.
--- NOTE | ~2022-05-02 | XR_ITS ---
EXAMINATION: XR CHEST CLINICAL INFORMATION: Shortness of breath COMPARISON: 11/04/2019 TECHNIQUE: 2 views of the chest were obtained. FINDINGS: No significant abnormality is noted involving the heart, lungs, mediastinum, bony thorax or soft tissues. The lungs are significantly better expanded than the time of the prior study. XR/XR chest 2V IMPRESSION: Unremarkable examination.
--- NOTE | 2022-05-02 18:47 | ED_ITS ---
HPI - General Adult General Chief complaint: Recheck/Abnormal Lab/Rx Stated complaint: potassium high, [facility] Time Seen by Provider: 05/02/22 20:16 Related Data Home Medications Medication Instructions Recorded Confirmed allopurinol 300 mg tablet 300 mg PO DAILY 11/03/20 05/02/22 ascorbic acid (vitamin C) 1,000 mg 1,000 mg PO BID 11/03/20 05/02/22 tablet (Vitamin C) cholecalciferol (vitamin D3) 50 50 mcg PO DAILY 11/03/20 05/02/22 mcg (2,000 unit) capsule insulin aspart U-100 100 unit/mL 16 unit subcut DAILY@1130 11/03/20 05/02/22 subcutaneous solution (Novolog U-100 Insulin aspart) insulin aspart U-100 100 unit/mL 24 unit subcut DAILY@1630 11/03/20 05/02/22 subcutaneous solution (Novolog U-100 Insulin aspart) methenamine hippurate 1 gram tablet 1 g PO BID 11/03/20 05/02/22 spironolactone 25 mg tablet 25 mg PO BID@0900,1700 11/03/20 05/02/22 tamsulosin 0.4 mg capsule 0.4 mg PO BEDTIME 11/03/20 05/02/22 torsemide 20 mg tablet 20 mg PO DAILY 11/03/20 05/02/22 amlodipine 5 mg tablet 5 mg PO DAILY@1200 05/02/22 05/02/22 cyanocobalamin (vitamin B-12) 100 200 mcg PO DAILY 05/02/22 05/02/22 mcg tablet insulin glargine 100 unit/mL (3 38 unit subcut DAILY@1700 05/02/22 05/02/22 mL) subcutaneous pen (Lantus Solostar U-100 Insulin) insulin lispro 100 unit/mL 8 unit subcut DAILY@0730 05/02/22 05/02/22 subcutaneous pen lisinopril 10 mg tablet 10 mg PO DAILY@1200 05/02/22 05/02/22 rosuvastatin 40 mg tablet 20 mg PO DAILY 05/02/22 05/02/22 Previous Rx's Medication Instructions Recorded apixaban 5 mg tablet (Eliquis) 5 mg PO BID 30 days #60 tabs 03/26/20 Allergies Allergy/AdvReac Type Severity Reaction Status Date / Time penicillin V Allergy Unknown Hallucinations, Verified 04/08/21 15:49 Sweats Penicillins AdvReac Intermediate HALLUCINATIONS, Verified 04/08/21 15:49 SWEATS PMFSH Past Medical History Medical History Diabetes Hypertension Kidney disease Social History Social History Household Members: Spouse Housing: House Do you presently have visiting nurse or other home services: No Patient Tobacco Use Status: Never used Tobacco Use of substances other than those prescribed or required for medical reasons: No Currently Displaying Signs/Symptoms of Drug Intoxication Withdrawal: No Have you been hit, kicked, punched, or otherwise hurt by someone within the past year? If so, by whom?: No Do you feel safe in your current relationship?: Yes Is there a partner from a previous relationship who is making you feel unsafe now?: No Are you made to feel afraid or neglected: No Advance Directives: No Advance Directives Information Provided: No Do you have thoughts of harming others: None Do you have a plan to hurt others: No Plan Recently lost weight without trying: No Eating poorly because of decreased appetite: No Nutrition Risks: No Nutritional Risk Poor oral hygiene: No service: Yes Current occupational status: retired Physical Exam ED Vital Signs: BMI result Body Mass Index 60.5 Course Course Course Narrative: This is a rapid medical exam. Deferred additional HPI, ROS, PE to primary provider. 71 yo male with a past medical history of hypertension, hyperlipidemia, diabetes, morbid obesity, ARIEL- on CPAP, history of pulmonary hypertension, atrial flutter on Eliquis, history of recurrent UTIs on chronic nitrofurantoin, history of venous stasis, venous stasis ulcers, chronic leg wou nds-[facility], chronic kidney disease with baseline creatinine around 1.4 here with complaints of abnormal labs (K 6.7) drawn today at the [facility]. patient complaining of nausea, chills, shortness of breath and generalized weakness since [place]. Will obtain labs, EKG, chest x-ray, COVID/flu/RSV testing. VSS Medications Administered Generic Name Dose Route Start Last Admin Trade Name Freq PRN Reason Stop Dose Admin Heparin Sodium (Porcine) 5,000 unit 05/03/22 09:00 05/04/22 07:59 Heparin Sodium,Porcine 5,000 Unit/Ml Vial SUBCUT 5,000 unit TID [facility] Administration Sodium Bicarbonate 150 meq/ 1,000 mls @ 100 mls/hr 05/04/22 08:00 05/04/22 08:31 Dextrose IV 100 mls/hr .Q10H [facility] Administration Insulin Human Lispro 0 unit 05/03/22 11:30 05/04/22 07:59 Insulin Lispro 100 Unit/Ml 3 Ml Vial SUBCUT 2 unit [facility]HS [facility] Administration Protocol Nystatin 1 appl 05/03/22 21:00 05/04/22 08:01 Nystatin Powder 15 Gm Bottle TOPICAL 1 appl BID [facility] Administration Protocol Discontinued Medications Generic Name Dose Route Start Last Admin Trade Name Freq PRN Reason Stop Dose Admin Dextrose 25 gm 05/02/22 20:24 05/02/22 20:46 Dextrose 50 % 25 Gm/50 Ml Syringe IVPUSH 05/02/22 20:25 25 gm ONCE ONE Administration Sodium Chloride 1,000 mls @ 999 mls/hr 05/02/22 20:30 05/03/22 01:06 Ns IV 05/02/22 21:30 Infused .Q1H1M [facility] Infusion Calcium Gluconate 2 gm in 100 mls @ 50 mls/hr 05/02/22 20:50 05/03/22 04:13 Calcium Gluconate IV 05/02/22 22:49 Infused ONCE ONE Infusion Sodium Chloride 1,000 mls @ 999 mls/hr 05/02/22 23:30 05/03/22 04:14 Ns IV 05/03/22 00:30 Infused .Q1H1M [facility] Infusion Sodium Chloride 1,000 mls @ 999 mls/hr 05/03/22 00:45 05/03/22 06:58 Ns IV 05/03/22 01:45 Infused .Q1H1M [facility] Infusion Sodium Bicarbonate 150 meq/ 1,000 mls @ 100 mls/hr 05/03/22 02:30 05/04/22 09:01 Dextrose IV Infused .Q10H [facility] Infusion Levofloxacin 750 mg in 150 mls @ 100 mls/hr 05/03/22 02:25 05/03/22 06:31 Levaquin IV 05/03/22 03:54 Infused ONCE ONE Infusion Vancomycin HCl 1,500 mg/ 500 mls @ 333.333 mls/hr 05/03/22 02:25 05/03/22 07:43 Sodium Chloride IV 05/03/22 03:54 Infused ONCE ONE Infusion Meropenem 1 gm/ Sodium 100 mls @ 200 mls/hr 05/03/22 09:00 05/03/22 09:05 Chloride IV Infused Q12H [facility] Infusion Insulin Human Regular 5 unit 05/02/22 20:24 05/02/22 20:47 Insulin Regular, Human 100 Unit/Ml 3 Ml Vial IVPUSH 05/02/22 20:25 5 unit ONCE ONE Administration Sodium Bicarbonate 50 meq 05/02/22 20:28 05/02/22 20:46 Sodium Bicarbonate 8.4% 50 Meq/50 Ml Syringe IVPUSH 05/02/22 20:29 50 meq ONCE ONE Administration Sodium Polystyrene Sulfonate 60 gm 05/02/22 20:26 05/02/22 20:47 Sodium Polystyrene Sulfon/Sorb 15 Gm/60 Ml Oral.Susp PO 05/02/22 20:27 60 gm ONCE ONE Administration Medical Decision Making Lab Data 05/04/22 06:06 05/04/22 06:06 Labs: Lab Results 05/02/22 05/02/22 05/02/22 Range/Units 19:40 19:40 19:40 WBC 12.5 H (4.8-10.8) X10*3/uL RBC 4.27 L (4.60-5.80) X10*6/uL Hgb 13.0 L (14.0-18.0) g/dl Hct 40.4 L (42.0-52.0) % MCV 94.6 (80.0-98.0) fL MCH 30.4 (27.0-33.0) pg MCHC 32.2 (31.0-36.0) g/dl RDW 15.7 (11.0-16.0) % Plt Count 179 (160-400) X10*3/uL MPV 10.4 (9.4-12.4) fL Immature Gran % (Auto) 0.6 H (0.0-0.4) % Neut % (Auto) 83.9 H (45-73) % Lymph % (Auto) 6.9 L (20-40) % Menard % (Auto) 6.2 (2-11) % Eos % (Auto) 2.2 (0-4) % Baso % (Auto) 0.2 (0-2) % Lymph # (Auto) 0.9 L (1.2-4.9) X10*3/uL [place]ard # (Auto) 0.8 (0.1-1.2) X10*3/uL Eos # (Auto) 0.3 (0.0-0.4) X10*3/uL Baso # (Auto) 0.0 (0.0-0.2) X10*3/uL Abs Immat Gran (auto) 0.08 H (0.00-0.03) X10*3/uL Absolute Neuts (auto) 10.5 H (2.0-8.3) x10*3/uL Absolute Nucleated RBC 0.000 (0.0-0.012) X10*3/uL Nucleated RBC % (auto) 0.0 (0.0-0.2) /100WBC VBG pH (7.32-7.43) VBG pCO2 mmHg VBG pO2 mmHg VBG HCO3 (22-26) mmol/L VBG O2 Saturation % VBG Base Excess mmol/L Sodium 138 (135-145) mmol/L Potassium 7.7 H* D (3.3-5.1) mmol/L Chloride 115 H (96-108) mmol/L Carbon Dioxide 12 L (22-29) mmol/L Anion Gap 19 (12-20) BUN 83 H (9-16) mg/dL Creatinine 2.86 H (0.5-1.4) mg/dL Estim Creat Clear Calc 39.1 Estimated GFR 22 POC Glucose (60-115) mg/dL Random Glucose 132 H (60-115) mg/dL Calcium 9.2 (8.4-10.2) mg/dL Magnesium 1.7 (1.6-2.6) mg/dL Total Bilirubin 0.6 (0.0-1.0) mg/dL Direct Bilirubin 0.2 (0.0-0.5) mg/dL AST 16 (5-37) U/L ALT 17 (0-40) U/L Alkaline Phosphatase 84 (39-117) U/L Troponin I High Sens (<3.5-35.0) ng/L Total Protein 7.0 (6.5-8.0) g/dL Albumin 4.0 (3.5-5.0) g/dL Influenza Type A (PCR) NEGATIVE (Negative) Influenza Type B (PCR) NEGATIVE (Negative) RSV RNA Qual (PCR) NEGATIVE (Negative) SARS-CoV-2 RNA (RT-PCR) NEGATIVE (Negative) 05/02/22 05/02/22 05/02/22 Range/Units 19:40 20:35 21:20 WBC (4.8-10.8) X10*3/uL RBC (4.60-5.80) X10*6/uL Hgb (14.0-18.0) g/dl Hct (42.0-52.0) % MCV (80.0-98.0) fL MCH (27.0-33.0) pg MCHC (31.0-36.0) g/dl RDW (11.0-16.0) % Plt Count (160-400) X10*3/uL MPV (9.4-12.4) fL Immature Gran % (Auto) (0.0-0.4) % Neut % (Auto) (45-73) % Lymph % (Auto) (20-40) % Menard % (Auto) (2-11) % Eos % (Auto) (0-4) % Baso % (Auto) (0-2) % Lymph # (Auto) (1.2-4.9) X10*3/uL Menard # (Auto) (0.1-1.2) X10*3/uL Eos # (Auto) (0.0-0.4) X10*3/uL Baso # (Auto) (0.0-0.2) X10*3/uL Abs Immat Gran (auto) (0.00-0.03) X10*3/uL Absolute Neuts (auto) (2.0-8.3) x10*3/uL Absolute Nucleated RBC (0.0-0.012) X10*3/uL Nucleated RBC % (auto) (0.0-0.2) /100WBC VBG pH (7.32-7.43) VBG pCO2 mmHg VBG pO2 mmHg VBG HCO3 (22-26) mmol/L VBG O2 Saturation % VBG Base Excess mmol/L Sodium 139 (135-145) mmol/L Potassium 7.2 H* (3.3-5.1) mmol/L Chloride 115 H (96-108) mmol/L Carbon Dioxide 15 L (22-29) mmol/L Anion Gap 16 (12-20) BUN 82 H (9-16) mg/dL Creatinine 2.83 H (0.5-1.4) mg/dL Estim Creat Clear Calc 39.5 Estimated GFR 22 POC Glucose 138 H (60-115) mg/dL Random Glucose 157 H (60-115) mg/dL Calcium 8.9 (8.4-10.2) mg/dL Magnesium (1.6-2.6) mg/dL Total Bilirubin (0.0-1.0) mg/dL Direct Bilirubin (0.0-0.5) mg/dL AST (5-37) U/L ALT (0-40) U/L Alkaline Phosphatase (39-117) U/L Troponin I High Sens 31.3 (<3.5-35.0) ng/L Total Protein (6.5-8.0) g/dL Albumin (3.5-5.0) g/dL Influenza Type A (PCR) (Negative) Influenza Type B (PCR) (Negative) RSV RNA Qual (PCR) (Negative) SARS-CoV-2 RNA (RT-PCR) (Negative) 05/02/22 05/02/22 05/03/22 Range/Units 23:48 23:52 01:05 WBC (4.8-10.8) X10*3/uL RBC (4.60-5.80) X10*6/uL Hgb (14.0-18.0) g/dl Hct (42.0-52.0) % MCV (80.0-98.0) fL MCH (27.0-33.0) pg MCHC (31.0-36.0) g/dl RDW (11.0-16.0) % Plt Count (160-400) X10*3/uL MPV (9.4-12.4) fL Immature Gran % (Auto) (0.0-0.4) % Neut % (Auto) (45-73) % Lymph % (Auto) (20-40) % Menard % (Auto) (2-11) % Eos % (Auto) (0-4) % Baso % (Auto) (0-2) % Lymph # (Auto) (1.2-4.9) X10*3/uL [place]ard # (Auto) (0.1-1.2) X10*3/uL Eos # (Auto) (0.0-0.4) X10*3/uL Baso # (Auto) (0.0-0.2) X10*3/uL Abs Immat Gran (auto) (0.00-0.03) X10*3/uL Absolute Neuts (auto) (2.0-8.3) x10*3/uL Absolute Nucleated RBC (0.0-0.012) X10*3/uL Nucleated RBC % (auto) (0.0-0.2) /100WBC VBG pH 7.21 L (7.32-7.43) VBG pCO2 40 mmHg VBG pO2 50 mmHg VBG HCO3 16 L (22-26) mmol/L VBG O2 Saturation 75.0 % VBG Base Excess -10.5 mmol/L Sodium 140 139 (135-145) mmol/L Potassium 6.9 H* 6.7 H* (3.3-5.1) mmol/L Chloride 118 H 118 H (96-108) mmol/L Carbon Dioxide 12 L 12 L (22-29) mmol/L Anion Gap 17 16 (12-20) BUN 82 H 84 H (9-16) mg/dL Creatinine 2.96 H 2.99 H (0.5-1.4) mg/dL Estim Creat Clear Calc 37.8 37.4 Estimated GFR 21 21 POC Glucose (60-115) mg/dL Random Glucose 178 H 177 H (60-115) mg/dL Calcium 9.1 9.0 (8.4-10.2) mg/dL Magnesium (1.6-2.6) mg/dL Total Bilirubin (0.0-1.0) mg/dL Direct Bilirubin (0.0-0.5) mg/dL AST (5-37) U/L ALT (0-40) U/L Alkaline Phosphatase (39-117) U/L Troponin I High Sens (<3.5-35.0) ng/L Total Protein (6.5-8.0) g/dL Albumin (3.5-5.0) g/dL Influenza Type A (PCR) (Negative) Influenza Type B (PCR) (Negative) RSV RNA Qual (PCR) (Negative) SARS-CoV-2 RNA (RT-PCR) (Negative) Discharge Plan Discharge Clinical Impression: Acute hyperkalemia, Renal failure Patient Disposition: Admitted As Inpatient Interventions: Admission Worksheet (ED) Last Done: 05/03/22 06:04 Discharge Date/Time: 05/03/22 06:04
--- NOTE | 2022-05-02 18:47 | ECG_ITS ---
Test Reason : chest pain Blood Pressure : / mmHG Vent. Rate : 053 BPM Atrial Rate : 077 BPM P-R Int : 000 ms QRS Dur : 166 ms QT Int : 422 ms P-R-T Axes : 000 270 021 degrees QTc Int : 395 ms Atrial fibrillation Right bundle branch block Left anterior fascicular block Bifascicular block Abnormal ECG When compared with ECG of 04-NOV-2019 09:46, Heart rate has decreased Referred By: Patricia Melchor Electronically Signed By:Jerardo Rojas
[2022-05-02 18:50] VITALS: BP 127/58; PULSE 79; RESP 20; TEMP 36.1; O2SAT 98; BMI 60.5
[2022-05-02 19:46] LABS: MANUAL DIFF FLAG NO
[2022-05-02 19:51] LABS: Basophils Percent Auto 0.2 % (0-2); Eosinophils Absolute Auto 0.3 X10*3/uL (0.0-0.4); Eosinophils Percent Auto 2.2 % (0-4); Hematocrit 40.4 % (42.0-52.0); Imm Gran Abs Auto 0.08 X10*3/uL (0.00-0.03); Imm Gran Pct Auto 0.6 % (0.0-0.4); Lymphocytes Absolute Auto 0.9 X10*3/uL (1.2-4.9); Lymphocytes Percent Auto 6.9 % (20-40); Mean Corpuscular HGB Conc 32.2 g/dl (31.0-36.0); Mean Corpuscular Hemoglobin 30.4 pg (27.0-33.0); Mean Corpuscular Volume 94.6 fL (80.0-98.0); Mean Platelet Volume 10.4 fL (9.4-12.4); Monocytes Absolute Auto 0.8 X10*3/uL (0.1-1.2); Monocytes Percent Auto 6.2 % (2-11); Neutrophils Absolute Auto 10.5 x10*3/uL (2.0-8.3); Neutrophils Percent Auto 83.9 % (45-73); Platelet Count 179 X10*3/uL (160-400); Red Blood Count 4.27 X10*6/uL (4.60-5.80); Red Cell Distribution Width 15.7 % (11.0-16.0); White Blood Count 12.5 X10*3/uL (4.8-10.8)
[2022-05-02 20:13] LABS: Troponin-I High Sensitivity 31.3 ng/L (<3.5-35.0)
[2022-05-02 20:21] LABS: Alanine Aminotransferase 17 U/L (0-40); Alkaline Phosphatase 84 U/L (39-117); Anion Gap 19 (12-20); Aspartate Amino Transferase 16 U/L (5-37); Bilirubin Direct 0.2 mg/dL (0.0-0.5); Bilirubin Total 0.6 mg/dL (0.0-1.0); Blood Urea Nitrogen 83 mg/dL (9-16); Calcium 9.2 mg/dL (8.4-10.2); Carbon Dioxide 12 mmol/L (22-29); Chloride 115 mmol/L (96-108); Creatinine Clr Calc Pharmacy 39.1; Estimated Glomerular Filt Rate 22; Glucose Random 132 mg/dL (60-115); Magnesium 1.7 mg/dL (1.6-2.6); Potassium 7.7 mmol/L (3.3-5.1); Sodium 138 mmol/L (135-145)
[2022-05-02 20:28] LABS: Influenza A PCR NEGATIVE (Negative); Influenza B PCR NEGATIVE (Negative); Resp Syncy Virus RNA Qual PCR NEGATIVE (Negative); SARS COV2 PCR INHOUSE NEGATIVE (Negative)
[2022-05-02 20:31] VITALS: BP 127/47; PULSE 77; RESP 16; TEMP 36.9; O2SAT 97
--- NOTE | 2022-05-02 20:39 | MHC.EDTECH ---
Addendum entered by Kurt James 05/02/22 20:40: this pct assumed care of pt at 2020 ,pt vitals sign taken ,patient was hooked up to monitor technician and pt got change into hospital attire . Original Note: this pct assumed care of pt at 2030
[2022-05-02] MEDS: Sodium Bicarbonate 8.4% 50 MEQ/50 ML SYRINGE IVPUSH (20:46)
[2022-05-02] MEDS: Dextrose 50 % 25 GM/50 ML SYRINGE IVPUSH (20:46)
[2022-05-02] MEDS: Sodium Polystyrene Sulfon/Sorb 15 GM/60 ML ORAL.SUSP 60 GM PO (20:47)
[2022-05-02] MEDS: Insulin Regular, Human 100 UNIT/ML 3 ML VIAL IVPUSH (20:47)
[2022-05-02 20:49] LABS: Glucose, Whole Blood 138 mg/dL (60-115)
[2022-05-02] MEDS: 0.9 % Sodium Chloride 1,000 ML 999 ML IV (20:54)
--- NOTE | 2022-05-02 20:56 | ED_ITS ---
HPI - Recheck/Abnormal Lab/Rx General Chief Complaint: Recheck/Abnormal Lab/Rx Stated Complaint: potassium high, [place] told pt to come in Time Seen by Provider: 05/02/22 20:16 History of Present Illness HPI narrative: Patient 71-year-old with a history of chronic renal insufficiency. Was at the [facility] had labs drawn. The labs showed an elevated potassium of 6.7. Patient was sent to [facility] for further evaluation. He denies any chest pain no diaphoresis. Feels generally weak. Patient is from home. There is no significant changes in his medication. Patient is on a water pill. He does take insulin. He is also on Eliquis. He denies any falls. Related Data Home Medications Medication Instructions Recorded Confirmed allopurinol 300 mg tablet 300 mg PO DAILY 11/03/20 05/02/22 ascorbic acid (vitamin C) 1,000 mg 1,000 mg PO BID 11/03/20 05/02/22 tablet (Vitamin C) cholecalciferol (vitamin D3) 50 50 mcg PO DAILY 11/03/20 05/02/22 mcg (2,000 unit) capsule insulin aspart U-100 100 unit/mL 16 unit subcut DAILY@1130 11/03/20 05/02/22 subcutaneous solution (Novolog U-100 Insulin aspart) insulin aspart U-100 100 unit/mL 24 unit subcut DAILY@1630 11/03/20 05/02/22 subcutaneous solution (Novolog U-100 Insulin aspart) methenamine hippurate 1 gram tablet 1 g PO BID 11/03/20 05/02/22 spironolactone 25 mg tablet 25 mg PO BID@0900,1700 11/03/20 05/02/22 tamsulosin 0.4 mg capsule 0.4 mg PO BEDTIME 11/03/20 05/02/22 torsemide 20 mg tablet 20 mg PO DAILY 11/03/20 05/02/22 amlodipine 5 mg tablet 5 mg PO DAILY@1200 05/02/22 05/02/22 cyanocobalamin (vitamin B-12) 100 200 mcg PO DAILY 05/02/22 05/02/22 mcg tablet insulin glargine 100 unit/mL (3 38 unit subcut DAILY@1700 05/02/22 05/02/22 mL) subcutaneous pen (Lantus Solostar U-100 Insulin) insulin lispro 100 unit/mL 8 unit subcut DAILY@0730 05/02/22 05/02/22 subcutaneous pen lisinopril 10 mg tablet 10 mg PO DAILY@1200 05/02/22 05/02/22 rosuvastatin 40 mg tablet 20 mg PO DAILY 05/02/22 05/02/22 Previous Rx's Medication Instructions Recorded apixaban 5 mg tablet (Eliquis) 5 mg PO BID 30 days #60 tabs 03/26/20 Allergies Allergy/AdvReac Type Severity Reaction Status Date / Time penicillin V Allergy Unknown Hallucinations, Verified 04/08/21 15:49 Sweats Penicillins AdvReac Intermediate HALLUCINATIONS, Verified 04/08/21 15:49 SWEATS Review of Systems Review of Systems: No fever no chills no cough no congestion or history symptoms Yes all other systems are reviewed and are negative [facility] Past Medical History Attestation statement: The following information was validated with the patient. Medical History Diabetes Hypertension Kidney disease Social History Social History Household Members: Spouse Housing: House Do you presently have visiting nurse or other home services: No Patient Tobacco Use Status: Never used Tobacco Advance Directives: No Advance Directives Information Provided: No service: Yes Current occupational status: retired Physical Exam Vital Signs: Vital Signs: Last Vital Signs Temp 97.9 F 05/02/22 22:00 Pulse 77 05/02/22 22:00 Resp 16 05/02/22 22:00 BP 105/52 L 05/02/22 22:00 Pulse Ox 97 05/02/22 20:31 O2 Del Method 05/02/22 22:00 BMI result Body Mass Index 60.5 Appearance: Alert. Oriented X3. No acute distress. Eyes: Pupils equal, round and reactive to light. ENT: Pharynx normal. Neck: Normal inspection. Neck supple. No lymph nodes noted. No crepitus CVS: Normal heart rate and rhythm. Pulses normal. Normal S1 and S2 Respiratory: No respiratory distress. Breath sounds normal. No Wheezing. No rales Abdomen: Soft and nontender. No rigidity. No distention. good BS x4 Skin: Skin warm and dry. Normal skin color. Normal skin turgor. Extremities: No lower extremity edema. Neurovascular intact to all extremities. No Lacerations. No Rash Neuro: Oriented X 3. No motor deficit. No sensory deficit. Moving all extermities. No slurred speech Medications Administered Discontinued Medications Generic Name Dose Route Start Last Admin Trade Name Dillon PRN Reason Stop Dose Admin Dextrose 25 gm 05/02/22 20:24 05/02/22 20:46 Dextrose 50 % 25 Gm/50 Ml Syringe IVPUSH 05/02/22 20:25 25 gm ONCE ONE Administration Sodium Chloride 1,000 mls @ 999 mls/hr 05/02/22 20:30 05/03/22 01:06 Ns IV 05/02/22 21:30 Infused .Q1H1M DALTON Infusion Calcium Gluconate 2 gm in 100 mls @ 50 mls/hr 05/02/22 20:50 05/02/22 21:18 Calcium Gluconate IV 05/02/22 22:49 50 mls/hr ONCE ONE Administration Sodium Chloride 1,000 mls @ 999 mls/hr 05/02/22 23:30 05/03/22 01:06 Ns IV 05/03/22 00:30 999 mls/hr .Q1H1M DALTON Administration Sodium Chloride 1,000 mls @ 999 mls/hr 05/03/22 00:45 05/03/22 01:08 Ns IV 05/03/22 01:45 999 mls/hr .Q1H1M DALTON Administration Insulin Human Regular 5 unit 05/02/22 20:24 05/02/22 20:47 Insulin Regular, Human 100 Unit/Ml 3 Ml Vial IVPUSH 05/02/22 20:25 5 unit ONCE ONE Administration Sodium Bicarbonate 50 meq 05/02/22 20:28 05/02/22 20:46 Sodium Bicarbonate 8.4% 50 Meq/50 Ml Syringe IVPUSH 05/02/22 20:29 50 meq ONCE ONE Administration Sodium Polystyrene Sulfonate 60 gm 05/02/22 20:26 05/02/22 20:47 Sodium Polystyrene Sulfon/Sorb 15 Gm/60 Ml Oral.Susp PO 05/02/22 20:27 60 gm ONCE ONE Administration Medical Decision Making Medical Decision Making MDM Narrative: patient's labs ordered. Potassium came back at 7.7. My interpretation of patient's EKG showed a right bundle branch pattern. Heart rate is 50. Seems to be In atrial fibrillation. The EKG is not changed from previous. There is no peaked T-waves noted. Given the elevated potassium. Patient given insulin and glucose. Patient's fingerstick was approximately 110. We will go ahead and give bicarb. A dose of Kayexalate was given. IV fluid was given for acute on chronic renal insufficiency. We will consult Nephrology. Patient's case also discussed with the hospitalist team. Patient to be admitted Patient given fluids. Potassium monitor in the emergency department. Gradually coming down. Now is 6.7. Given additional fluids. However patient's creatinine still elevated. Case discussed with the ICU team will accept patient to the intensive care unit. Differential Diagnosis Differential Diagnoses: The differential diagnosis associated with the presentation includes worsened renal insufficiency causing hyperkalemia Admission/Observation Consideration of admission/observation: Escalation of care including admission/observation considered patient needs to be admitted for hyperkalemia Consult Healthcare Provider Management of the patient was discussed with: Hospitalist and Integrated Logistics Support Manager place discussed with hospitalist will also discuss case with the sample dye mixer Lab Data MDM Lab Attestation statement: I reviewed the patient's lab results. 05/02/22 19:40 05/02/22 19:40 Labs: Lab Results 05/02/22 05/02/22 05/02/22 Range/Units 19:40 19:40 19:40 WBC 12.5 H (4.8-10.8) X10*3/uL RBC 4.27 L (4.60-5.80) X10*6/uL Hgb 13.0 L (14.0-18.0) g/dl Hct 40.4 L (42.0-52.0) % MCV 94.6 (80.0-98.0) fL MCH 30.4 (27.0-33.0) pg MCHC 32.2 (31.0-36.0) g/dl RDW 15.7 (11.0-16.0) % Plt Count 179 (160-400) X10*3/uL MPV 10.4 (9.4-12.4) fL Immature Gran % (Auto) 0.6 H (0.0-0.4) % Neut % (Auto) 83.9 H (45-73) % Lymph % (Auto) 6.9 L (20-40) % Benton % (Auto) 6.2 (2-11) % Eos % (Auto) 2.2 (0-4) % Baso % (Auto) 0.2 (0-2) % Lymph # (Auto) 0.9 L (1.2-4.9) X10*3/uL Benton # (Auto) 0.8 (0.1-1.2) X10*3/uL Eos # (Auto) 0.3 (0.0-0.4) X10*3/uL Baso # (Auto) 0.0 (0.0-0.2) X10*3/uL Abs Immat Gran (auto) 0.08 H (0.00-0.03) X10*3/uL Absolute Neuts (auto) 10.5 H (2.0-8.3) x10*3/uL Absolute Nucleated RBC 0.000 (0.0-0.012) X10*3/uL Nucleated RBC % (auto) 0.0 (0.0-0.2) /100WBC VBG pH (7.32-7.43) VBG pCO2 mmHg VBG pO2 mmHg VBG HCO3 (22-26) mmol/L VBG O2 Saturation % VBG Base Excess mmol/L Sodium 138 (135-145) mmol/L Potassium 7.7 H* D (3.3-5.1) mmol/L Chloride 115 H (96-108) mmol/L Carbon Dioxide 12 L (22-29) mmol/L Anion Gap 19 (12-20) BUN 83 H (9-16) mg/dL Creatinine 2.86 H (0.5-1.4) mg/dL Estim Creat Clear Calc 39.1 Estimated GFR 22 POC Glucose (60-115) mg/dL Random Glucose 132 H (60-115) mg/dL Calcium 9.2 (8.4-10.2) mg/dL Magnesium 1.7 (1.6-2.6) mg/dL Total Bilirubin 0.6 (0.0-1.0) mg/dL Direct Bilirubin 0.2 (0.0-0.5) mg/dL AST 16 (5-37) U/L ALT 17 (0-40) U/L Alkaline Phosphatase 84 (39-117) U/L Troponin I High Sens (<3.5-35.0) ng/L Total Protein 7.0 (6.5-8.0) g/dL Albumin 4.0 (3.5-5.0) g/dL Influenza Type A (PCR) NEGATIVE (Negative) Influenza Type B (PCR) NEGATIVE (Negative) RSV RNA Qual (PCR) NEGATIVE (Negative) SARS-CoV-2 RNA (RT-PCR) NEGATIVE (Negative) 05/02/22 05/02/22 05/02/22 Range/Units 19:40 20:35 21:20 WBC (4.8-10.8) X10*3/uL RBC (4.60-5.80) X10*6/uL Hgb (14.0-18.0) g/dl Hct (42.0-52.0) % MCV (80.0-98.0) fL MCH (27.0-33.0) pg MCHC (31.0-36.0) g/dl RDW (11.0-16.0) % Plt Count (160-400) X10*3/uL MPV (9.4-12.4) fL Immature Gran % (Auto) (0.0-0.4) % Neut % (Auto) (45-73) % Lymph % (Auto) (20-40) % Benton % (Auto) (2-11) % Eos % (Auto) (0-4) % Baso % (Auto) (0-2) % Lymph # (Auto) (1.2-4.9) X10*3/uL Benton # (Auto) (0.1-1.2) X10*3/uL Eos # (Auto) (0.0-0.4) X10*3/uL Baso # (Auto) (0.0-0.2) X10*3/uL Abs Immat Gran (auto) (0.00-0.03) X10*3/uL Absolute Neuts (auto) (2.0-8.3) x10*3/uL Absolute Nucleated RBC (0.0-0.012) X10*3/uL Nucleated RBC % (auto) (0.0-0.2) /100WBC VBG pH (7.32-7.43) VBG pCO2 mmHg VBG pO2 mmHg VBG HCO3 (22-26) mmol/L VBG O2 Saturation % VBG Base Excess mmol/L Sodium 139 (135-145) mmol/L Potassium 7.2 H* (3.3-5.1) mmol/L Chloride 115 H (96-108) mmol/L Carbon Dioxide 15 L (22-29) mmol/L Anion Gap 16 (12-20) BUN 82 H (9-16) mg/dL Creatinine 2.83 H (0.5-1.4) mg/dL Estim Creat Clear Calc 39.5 Estimated GFR 22 POC Glucose 138 H (60-115) mg/dL Random Glucose 157 H (60-115) mg/dL Calcium 8.9 (8.4-10.2) mg/dL Magnesium (1.6-2.6) mg/dL Total Bilirubin (0.0-1.0) mg/dL Direct Bilirubin (0.0-0.5) mg/dL AST (5-37) U/L ALT (0-40) U/L Alkaline Phosphatase (39-117) U/L Troponin I High Sens 31.3 (<3.5-35.0) ng/L Total Protein (6.5-8.0) g/dL Albumin (3.5-5.0) g/dL Influenza Type A (PCR) (Negative) Influenza Type B (PCR) (Negative) RSV RNA Qual (PCR) (Negative) SARS-CoV-2 RNA (RT-PCR) (Negative) 05/02/22 05/02/22 05/03/22 Range/Units 23:48 23:52 01:05 WBC (4.8-10.8) X10*3/uL RBC (4.60-5.80) X10*6/uL Hgb (14.0-18.0) g/dl Hct (42.0-52.0) % MCV (80.0-98.0) fL MCH (27.0-33.0) pg MCHC (31.0-36.0) g/dl RDW (11.0-16.0) % Plt Count (160-400) X10*3/uL MPV (9.4-12.4) fL Immature Gran % (Auto) (0.0-0.4) % Neut % (Auto) (45-73) % Lymph % (Auto) (20-40) % Benton % (Auto) (2-11) % Eos % (Auto) (0-4) % Baso % (Auto) (0-2) % Lymph # (Auto) (1.2-4.9) X10*3/uL Benton # (Auto) (0.1-1.2) X10*3/uL Eos # (Auto) (0.0-0.4) X10*3/uL Baso # (Auto) (0.0-0.2) X10*3/uL Abs Immat Gran (auto) (0.00-0.03) X10*3/uL Absolute Neuts (auto) (2.0-8.3) x10*3/uL Absolute Nucleated RBC (0.0-0.012) X10*3/uL Nucleated RBC % (auto) (0.0-0.2) /100WBC VBG pH 7.21 L (7.32-7.43) VBG pCO2 40 mmHg VBG pO2 50 mmHg VBG HCO3 16 L (22-26) mmol/L VBG O2 Saturation 75.0 % VBG Base Excess -10.5 mmol/L Sodium 140 139 (135-145) mmol/L Potassium 6.9 H* 6.7 H* (3.3-5.1) mmol/L Chloride 118 H 118 H (96-108) mmol/L Carbon Dioxide 12 L 12 L (22-29) mmol/L Anion Gap 17 16 (12-20) BUN 82 H 84 H (9-16) mg/dL Creatinine 2.96 H 2.99 H (0.5-1.4) mg/dL Estim Creat Clear Calc 37.8 37.4 Estimated GFR 21 21 POC Glucose (60-115) mg/dL Random Glucose 178 H 177 H (60-115) mg/dL Calcium 9.1 9.0 (8.4-10.2) mg/dL Magnesium (1.6-2.6) mg/dL Total Bilirubin (0.0-1.0) mg/dL Direct Bilirubin (0.0-0.5) mg/dL AST (5-37) U/L ALT (0-40) U/L Alkaline Phosphatase (39-117) U/L Troponin I High Sens (<3.5-35.0) ng/L Total Protein (6.5-8.0) g/dL Albumin (3.5-5.0) g/dL Influenza Type A (PCR) (Negative) Influenza Type B (PCR) (Negative) RSV RNA Qual (PCR) (Negative) SARS-CoV-2 RNA (RT-PCR) (Negative) Independent Interpretation I performed an independent interpretation of an: EKG Interpretation: atrial fibrillation pattern heart rate is 50 with a right bundle branch block EKG is not changed from previous there is no PT waves noted Independent Historian Clinical information obtained from an independent historian. History obtained from or confirmed by: Other be a External Record Review External record reviewed: Inpatient record Critical Care Time Critical Care Time Critical Care Time: Yes Total Critical Care Time: 40 Attestation: I have personally provided 40 minutes of critical care time exclusive of time spent on separately billable procedures. Time includes review of lab data, radiology results, discussion with consultants, and monitoring for potential decompensation. Interventions were performed as documented above Discharge Plan Discharge Clinical Impression: Acute hyperkalemia, Renal failure Patient Disposition: Admitted As Inpatient
[2022-05-02] MEDS: Calcium Gluconate/NaCl,Iso-Osm 2 GM/100 ML PLAST..BAG IV (21:18)
[2022-05-02 21:51] LABS: Anion Gap 16 (12-20); Blood Urea Nitrogen 82 mg/dL (9-16); Calcium 8.9 mg/dL (8.4-10.2); Carbon Dioxide 15 mmol/L (22-29); Chloride 115 mmol/L (96-108); Creatinine Clr Calc Pharmacy 39.5; Estimated Glomerular Filt Rate 22; Glucose Random 157 mg/dL (60-115); Potassium 7.2 mmol/L (3.3-5.1); Sodium 139 mmol/L (135-145)
[2022-05-02 21:58] VITALS: O2SAT 100
[2022-05-02 22:00] VITALS: BP 105/52; PULSE 77; RESP 16; TEMP 36.6
--- NOTE | 2022-05-02 22:33 | MHC.EDTECH ---
nephrology has been called 3 times for a consult to Dr Mcallister. Still no response will keep trying Nephrology until consult is done
--- NOTE | 2022-05-02 22:37 | PHA.MEDREC ---
Pharmacy Consult ? Medication Reconciliation Pharmacy has completed the medication reconciliation. pt has his own list and verified against [place] [facility] list
--- NOTE | 2022-05-02 22:54 | MHC.EDTECH ---
patient was a 2 assiat unto bed side commode ,patient had large watery lstool ,care given ,back in bed ,call estrada within reach .
[2022-05-02 23:00] VITALS: O2SAT 99
--- NOTE | 2022-05-02 23:37 | PC.RT ---
Pt refused ABG after multiple attempts.
[2022-05-02 23:59] LABS: Venous Blood Gas Refer to POC result
[2022-05-03] VITALS (12 sets, daily range): BP systolic 123–149; BP diastolic 53–71; PULSE 64–98; RESP 13–23; TEMP 36.1–36.7; O2SAT 95–100; BMI 62.7
[2022-05-03] LABS: VBG Base Excess -10.5 mmol/L; VBG HCO3 16 mmol/L (22-26); VBG pCO2 40 mmHg; VBG pH 7.21 (7.32-7.43); VBG pO2 50 mmHg
[2022-05-03 00:12] LABS: Anion Gap 17 (12-20); Blood Urea Nitrogen 82 mg/dL (9-16); Calcium 9.1 mg/dL (8.4-10.2); Carbon Dioxide 12 mmol/L (22-29); Chloride 118 mmol/L (96-108); Creatinine Clr Calc Pharmacy 37.8; Estimated Glomerular Filt Rate 21; Glucose Random 178 mg/dL (60-115); Potassium 6.9 mmol/L (3.3-5.1); Sodium 140 mmol/L (135-145)
[2022-05-03] MEDS: 0.9 % Sodium Chloride 1,000 ML 999 ML IV ×2 (01:06→01:08)
[2022-05-03 01:33] LABS: Anion Gap 16 (12-20); Blood Urea Nitrogen 84 mg/dL (9-16); Carbon Dioxide 12 mmol/L (22-29); Chloride 118 mmol/L (96-108); Creatinine Clr Calc Pharmacy 37.4; Estimated Glomerular Filt Rate 21; Glucose Random 177 mg/dL (60-115); Potassium 6.7 mmol/L (3.3-5.1); Sodium 139 mmol/L (135-145)
--- NOTE | 2022-05-03 01:40 | MHC.EDTECH ---
[facility] transfer line called, [facility] decline.
--- NOTE | 2022-05-03 01:55 | MHC.EDTECH ---
[facility] called for transfer, awaiting call back [phone].
--- NOTE | 2022-05-03 02:01 | MHC.EDTECH ---
[facility] calls back and declines pt. aware.
--- NOTE | 2022-05-03 03:10 | P.HPCC_ITS ---
History of Present Illness Date of Service: 05/03/22 Attending physician on admission: Kingston Carrera Chief Complaint: Abnormal potassium level Review of Systems Review of Systems: as per hpi Yes all other systems are reviewed and are negative [facility] Past Medical History Medical History (Updated 05/03/22 @ 04:06 by Bienvenido Wei NP) Diabetes Hypertension Kidney disease Social History Social History Household Members: Spouse Housing: House Do you presently have visiting nurse or other home services: No Patient Tobacco Use Status: Never used Tobacco Advance Directives: No Advance Directives Information Provided: No service: Yes Current occupational status: retired Meds Allergies Allergy/AdvReac Type Severity Reaction Status Date / Time penicillin V Allergy Unknown Hallucinations, Verified 04/08/21 15:49 Sweats Penicillins AdvReac Intermediate HALLUCINATIONS, Verified 04/08/21 15:49 SWEATS Active Medications: Current Medications Heparin Sodium (Porcine) (Heparin Sodium,Porcine 5,000 Unit/Ml Vial) 5,000 unit SUBCUT TID [place] Sodium Bicarbonate 150 meq/ (Dextrose) 1,000 mls @ 100 mls/hr IV .Q10H [place] Levofloxacin (Levaquin) 750 mg in 150 mls @ 100 mls/hr IV ONCE ONE Stop: 05/03/22 03:54 Vancomycin HCl 1,500 mg/ (Sodium Chloride) 500 mls @ 333.333 mls/hr IV ONCE ONE Stop: 05/03/22 03:54 Pharmacy Consult (Consult Rx Perform Med Rec) 1 each MISCELLANE ONCE PRN PRN Reason: Consult order Home Medications Medication Instructions Recorded Confirmed Last Taken Type allopurinol 300 mg tablet 300 mg PO DAILY 11/03/20 05/02/22 05/02/22 History ascorbic acid (vitamin C) 1,000 mg 1,000 mg PO BID 11/03/20 05/02/22 05/02/22 History tablet (Vitamin C) cholecalciferol (vitamin D3) 50 50 mcg PO DAILY 11/03/20 05/02/22 05/02/22 History mcg (2,000 unit) capsule insulin aspart U-100 100 unit/mL 16 unit subcut DAILY@1130 11/03/20 05/02/22 05/02/22 History subcutaneous solution (Novolog U-100 Insulin aspart) insulin aspart U-100 100 unit/mL 24 unit subcut DAILY@1630 11/03/20 05/02/22 05/02/22 History subcutaneous solution (Novolog U-100 Insulin aspart) methenamine hippurate 1 gram tablet 1 g PO BID 11/03/20 05/02/22 05/02/22 History spironolactone 25 mg tablet 25 mg PO BID@0900,1700 11/03/20 05/02/22 05/02/22 H istory tamsulosin 0.4 mg capsule 0.4 mg PO BEDTIME 11/03/20 05/02/22 05/02/22 History torsemide 20 mg tablet 20 mg PO DAILY 11/03/20 05/02/22 05/02/22 History amlodipine 5 mg tablet 5 mg PO DAILY@1200 05/02/22 05/02/22 05/02/22 History cyanocobalamin (vitamin B-12) 100 200 mcg PO DAILY 05/02/22 05/02/22 05/02/22 History mcg tablet insulin glargine 100 unit/mL (3 38 unit subcut DAILY@1700 05/02/22 05/02/22 05/02/22 History mL) subcutaneous pen (Lantus Solostar U-100 Insulin) insulin lispro 100 unit/mL 8 unit subcut DAILY@0730 05/02/22 05/02/22 05/02/22 History subcutaneous pen lisinopril 10 mg tablet 10 mg PO DAILY@1200 05/02/22 05/02/22 05/02/22 History rosuvastatin 40 mg tablet 20 mg PO DAILY 05/02/22 05/02/22 05/02/22 History Physical Exam Vital Signs: Vital Signs: Last Vital Signs Temp 97.9 F 05/02/22 22:00 Pulse 77 05/02/22 22:00 Resp 16 05/02/22 22:00 BP 105/52 L 05/02/22 22:00 Pulse Ox 97 05/02/22 20:31 O2 Del Method 05/02/22 22:00 BMI result Body Mass Index 60.5 ?General:? Alert oriented x3 no acute distress.? Speaking full sentences.? Speech is well articulated, thought process is coherent.? Following all commands. ?HEENT:? Head is normocephalic, atraumatic, pupils equal round reactive to light accommodation bilaterally.? Extraocular movements appear intact.? Buccal mucosa is moist, Neck is supple ?Cardiac:?AFIB 50-60. no murmurs rubs or gallops. bilateral lower extremity lymphedema ?Pulmonary:? Lungs clear to auscultation, no wheezes, rales or rhonchi. ?Abdomen:? ?Abdomen soft, non-tender, non-distended. Normal bowel sounds. No pulsatile mass. ?Musculoskeletal:?Moving all 4 extremities upon request a major joints, there is no crepitus or tenderness.? The strength is 5/5 bilaterally and throughout all 4 extremities.? Gait not assessed at this point. ?Neurologic:?No focal deficits noted.Motor strength as above.?? ?Skin:? skin dry/scaly on bilateral lower extremity. multiple ulcers in all stages bilateral lower extremity Results Labs 05/02/22 19:40 05/03/22 01:05 Labs: Laboratory Results - last 24 hr 05/02/22 05/02/22 05/02/22 19:40 19:40 19:40 MCV 94.6 MCH 30.4 MCHC 32.2 RDW 15.7 Plt Count 179 MPV 10.4 Immature Gran % (Auto) 0.6 H Neut % (Auto) 83.9 H Lymph % (Auto) 6.9 L [place] % (Auto) 6.2 Eos % (Auto) 2.2 Baso % (Auto) 0.2 Lymph # (Auto) 0.9 L [place] # (Auto) 0.8 Eos # (Auto) 0.3 Baso # (Auto) 0.0 Abs Immat Gran (auto) 0.08 H Absolute Neuts (auto) 10.5 H Absolute Nucleated RBC 0.000 Nucleated RBC % (auto) 0.0 VBG pH VBG pCO2 VBG pO2 VBG HCO3 VBG O2 Saturation VBG Base Excess Anion Gap 19 Estim Creat Clear Calc 39.1 Estimated GFR 22 POC Glucose Random Glucose 132 H Calcium 9.2 Magnesium 1.7 Total Bilirubin 0.6 Direct Bilirubin 0.2 AST 16 ALT 17 Alkaline Phosphatase 84 Troponin I High Sens Total Protein 7.0 Albumin 4.0 Influenza Type A (PCR) NEGATIVE Influenza Type B (PCR) NEGATIVE RSV RNA Qual (PCR) NEGATIVE SARS-CoV-2 RNA (RT-PCR) NEGATIVE 0105/02/22 05/02/22 19:40 20:35 21:20 MCV MCH MCHC RDW Plt Count MPV Immature Gran % (Auto) Neut % (Auto) Lymph % (Auto) [place] % (Auto) Eos % (Auto) Baso % (Auto) Lymph # (Auto) [place] # (Auto) Eos # (Auto) Baso # (Auto) Abs Immat Gran (auto) Absolute Neuts (auto) Absolute Nucleated RBC Nucleated RBC % (auto) VBG pH VBG pCO2 VBG pO2 VBG HCO3 VBG O2 Saturation VBG Base Excess Anion Gap 16 Estim Creat Clear Calc 39.5 Estimated GFR 22 POC Glucose 138 H Random Glucose 157 H Calcium 8.9 Magnesium Total Bilirubin Direct Bilirubin AST ALT Alkaline Phosphatase Troponin I High Sens 31.3 Total Protein Albumin Influenza Type A (PCR) Influenza Type B (PCR) RSV RNA Qual (PCR) SARS-CoV-2 RNA (RT-PCR) 05/02/22 05/02/22 05/03/22 23:48 23:52 01:05 MCV MCH MCHC RDW Plt Count MPV Immature Gran % (Auto) Neut % (Auto) Lymph % (Auto) [place] % (Auto) Eos % (Auto) Baso % (Auto) Lymph # (Auto) [place] # (Auto) Eos # (Auto) Baso # (Auto) Abs Immat Gran (auto) Absolute Neuts (auto) Absolute Nucleated RBC Nucleated RBC % (auto) VBG pH 7.21 L VBG pCO2 40 VBG pO2 50 VBG HCO3 16 L VBG O2 Saturation 75.0 VBG Base Excess -10.5 Anion Gap 17 16 Estim Creat Clear Calc 37.8 37.4 Estimated GFR 21 21 POC Glucose Random Glucose 178 H 177 H Calcium 9.1 9.0 Magnesium Total Bilirubin Direct Bilirubin AST ALT Alkaline Phosphatase Troponin I High Sens Total Protein Albumin Influenza Type A (PCR) Influenza Type B (PCR) RSV RNA Qual (PCR) SARS-CoV-2 RNA (RT-PCR) Imaging Radiologist's Impressions: Impressions Chest X-Ray 05/02/22 19:07 IMPRESSION: Unremarkable examination. Assessment and Plan (1) Acute hyperkalemia: Status: Acute (2) Metabolic acidosis: Status: Acute (3) MARGOTH (acute kidney injury): Status: Acute (4) Renal failure: Status: Acute (5) Leukocytosis: Status: Acute (6) Diabetes: Status: Acute Plan Neuro:? No acute issues?? Cardiac:?? No acute issues? Pulmonary:?? No acute issues? GI:? No acute issues.?? Renal:? ?MARGOTH-? nonoliguric,? patient has chronic kidney disease,? baseline creatinine 1.4-1.7,? creatinine today 2.86? and increasing? to 2.99. He is on Spironolactone and lisinopril? at home, denies Insensible fluid loss. Potassium initially elevated to 7.7. Nephrology consulted by ED. Patient given 3 L Bolus, Amp of bicarb and started on Bicarb drip. Patient hx of renal mass. Will obtain abdomen CT scan. Will cont to check renal indices closely? Metabolic acidosis- VBGs 7.21/40/50/16. Patient initial K 7.7, creat 2.86. Received previous interventions. Has no elevation in anion GAP, no vomiting/ diarrhea. Unsure as of the underlying cause.Will send lactic, BC, and ua. Cont bicarb drip? Hyperkalemia-? initial potassium 7.7,? received 5 units of insulin? IV push, dextrose, 60 g of Kayexalate, 2 g of calcium gluconate. No changes in EKG, ? no peaked T-waves.? ? Despite previous interventions? potassium only down to 6.7. Cont bicarb drip, Will cont to do frequent BMPs Endo: Patient reports frequent blood sugar swings at home. Serum glucose 138. Will do POC Q6hr? ID: ? Leukocytosis-? patient has history of frequent E coli UTIs.? blood cultures pending, UA pending. ? Will treat with empiric antibiotics? until tests come back Heme/Onc:? No acute issues. Psych:? No acute issues. Miscellaneous:? No acute issues. Prophylaxis:? SubCut Heparin Diet: Cardiac/Low? K diet? CODE: FULL ?Critical care time:? x 30 minutes of critical care Case discussed with attending Dr Carrera? Time Spent With Patient Time: Total time managing care of this patient today 30____ minutes. Critical Care Time Critical Care Time (minutes): 30
[2022-05-03 03:42] LABS: Lactic Acid 1.2 mmol/L (0.5-2.0)
[2022-05-03] MEDS: levoFLOXacin/D5W 750 MG/150 ML PIGGYBACK 100 MG IV (04:06)
[2022-05-03 04:40] LABS: Appearance Urine Turbid; Color Urine Yellow; Glucose Urine UA Negative (Negative); Leukocyte Esterase Urine Large (3+) (Negative); Nitrite Urine Negative (Negative); PH 5.5 (5.0-9.0); Specific Gravity - Urine 1.015 (1.005-1.025); UMIC TRIGGER UACC YES; Urine Blood Small (1+) (Negative); Urine Ketones Negative (Negative); Urine Protein 100 (2+) mg/dL (Neg-Trace)
[2022-05-03 05:07] LABS: Bacteria Urine 4+ (None Seen); Hyaline Casts Urine 0-2 /LPF (0-2); UACC Culture Trigger YES; WBC Urine >50 /HPF (0-5)
--- NOTE | 2022-05-03 05:30 | PC.NURSE ---
Pt. has orders for 2 abx and a continuous sodium bicarb. Pt. had only 1 iv. first abx is running. 2nd IV was just placed. Sodium bicarb unavailable in ED pyxis, however, ICU has it. Will have them hang upon transfer. Pt. remains connected to hall monitor. VSS.
[2022-05-03] MEDS: vancomycin HCL 1,500 MG in 0.9 % Sodium Chloride 500 ML 333.33 MG IV (06:09)
[2022-05-03] MEDS: Sodium Bicarbonate 8.4% 150 MEQ in Dextrose 5 % 850 ML 100 MEQ IV ×3 (06:10→23:48)
[2022-05-03 06:19] LABS: VBG Base Excess -14.1 mmol/L; VBG HCO3 11 mmol/L (22-26); VBG pCO2 27 mmHg; VBG pH 7.23 (7.32-7.43); VBG pO2 44 mmHg
[2022-05-03 06:27] LABS: Glucose, Whole Blood 172 mg/dL (60-115)
[2022-05-03 06:39] LABS: Venous Blood Gas Refer to POC result
[2022-05-03 07:07] LABS: MANUAL DIFF FLAG NO
[2022-05-03 07:13] LABS: Basophils Percent Auto 0.3 % (0-2); Eosinophils Absolute Auto 0.2 X10*3/uL (0.0-0.4); Eosinophils Percent Auto 1.8 % (0-4); Hematocrit 39.8 % (42.0-52.0); Hemoglobin 12.7 g/dl (14.0-18.0); Imm Gran Abs Auto 0.09 X10*3/uL (0.00-0.03); Imm Gran Pct Auto 0.8 % (0.0-0.4); Lymphocytes Absolute Auto 0.9 X10*3/uL (1.2-4.9); Lymphocytes Percent Auto 7.5 % (20-40); Mean Corpuscular HGB Conc 31.9 g/dl (31.0-36.0); Mean Corpuscular Hemoglobin 30.3 pg (27.0-33.0); Monocytes Absolute Auto 0.8 X10*3/uL (0.1-1.2); Monocytes Percent Auto 6.7 % (2-11); Neutrophils Absolute Auto 9.4 x10*3/uL (2.0-8.3); Neutrophils Percent Auto 82.9 % (45-73); Platelet Count 185 X10*3/uL (160-400); Red Blood Count 4.19 X10*6/uL (4.60-5.80); Red Cell Distribution Width 15.7 % (11.0-16.0); White Blood Count 11.3 X10*3/uL (4.8-10.8)
[2022-05-03 07:43] LABS: Albumin Level 3.9 g/dL (3.5-5.0); Anion Gap 16 (12-20); Blood Urea Nitrogen 79 mg/dL (9-16); Calcium 8.8 mg/dL (8.4-10.2); Carbon Dioxide 12 mmol/L (22-29); Chloride 117 mmol/L (96-108); Creatinine Clr Calc Pharmacy 41.3; Estimated Glomerular Filt Rate 23; Glucose Random 172 mg/dL (60-115); Magnesium 1.6 mg/dL (1.6-2.6); Phosphorus 4.1 mg/dL (2.7-4.5); Potassium 6.3 mmol/L (3.3-5.1); Sodium 139 mmol/L (135-145)
[2022-05-03 08:32] LABS: Glucose, Whole Blood 154 mg/dL (60-115)
[2022-05-03] MEDS: Heparin Sodium,Porcine 5,000 UNIT/ML VIAL 5000 UNIT SUBCUT ×3 (08:35→21:56)
--- NOTE | 2022-05-03 09:45 | PM.PNNEP ---
Subjective Subjective Date of Service: 05/03/22 Physical Exam Vital Signs: Vital Signs: Last Vital Signs Temp 98.1 F 05/03/22 07:00 Pulse 64 05/03/22 09:00 Resp 18 05/03/22 09:00 BP 131/59 L 05/03/22 09:00 Pulse Ox 99 05/03/22 09:00 O2 Del Method 05/03/22 09:00 BMI result Body Mass Index 62.7 Objective Data Labs 05/03/22 06:14 05/03/22 06:15 Labs: Laboratory Results - last 24 hr 05/02/22 05/02/22 05/02/22 19:40 19:40 19:40 WBC 12.5 H RBC 4.27 L Hgb 13.0 L Hct 40.4 L MCV 94.6 MCH 30.4 MCHC 32.2 RDW 15.7 Plt Count 179 MPV 10.4 Immature Gran % (Auto) 0.6 H Neut % (Auto) 83.9 H Lymph % (Auto) 6.9 L [place] % (Auto) 6.2 Eos % (Auto) 2.2 Baso % (Auto) 0.2 Lymph # (Auto) 0.9 L [place] # (Auto) 0.8 Eos # (Auto) 0.3 Baso # (Auto) 0.0 Abs Immat Gran (auto) 0.08 H Absolute Neuts (auto) 10.5 H Absolute Nucleated RBC 0.000 Nucleated RBC % (auto) 0.0 VBG pH VBG pCO2 VBG pO2 VBG HCO3 VBG O2 Saturation VBG Base Excess Sodium 138 Potassium 7.7 H* D Chloride 115 H Carbon Dioxide 12 L Anion Gap 19 BUN 83 H Creatinine 2.86 H Estim Creat Clear Calc 39.1 Estimated GFR 22 POC Glucose Random Glucose 132 H Lactic Acid Calcium 9.2 Phosphorus Magnesium 1.7 Total Bilirubin 0.6 Direct Bilirubin 0.2 AST 16 ALT 17 Alkaline Phosphatase 84 Troponin I High Sens Total Protein 7.0 Albumin 4.0 Urine Color Urine Appearance Urine pH Ur Specific [place] Urine Protein Urine Glucose (UA) Urine Ketones Urine Blood Urine Nitrite Ur Leukocyte Esterase Urine RBC Urine WBC Ur Squamous Epith Cells Urine Bacteria Hyaline Casts Influenza Type A (PCR) NEGATIVE Influenza Type B (PCR) NEGATIVE RSV RNA Qual (PCR) NEGATIVE SARS-CoV-2 RNA (RT-PCR) NEGATIVE 05/02/22 05/02/2205/02/23 19:40 20:35 21:20 WBC RBC Hgb Hct MCV MCH MCHC RDW Plt Count MPV Immature Gran % (Auto) Neut % (Auto) Lymph % (Auto) [place] % (Auto) Eos % (Auto) Baso % (Auto) Lymph # (Auto) [place] # (Auto) Eos # (Auto) Baso # (Auto) Abs Immat Gran (auto) Absolute Neuts (auto) Absolute Nucleated RBC Nucleated RBC % (auto) VBG pH VBG pCO2 VBG pO2 VBG HCO3 VBG O2 Saturation VBG Base Excess Sodium 139 Potassium 7.2 H* Chloride 115 H Carbon Dioxide 15 L Anion Gap 16 BUN 82 H Creatinine 2.83 H Estim Creat Clear Calc 39.5 Estimated GFR 22 POC Glucose 138 H Random Glucose 157 H Lactic Acid Calcium 8.9 Phosphorus Magnesium Total Bilirubin Direct Bilirubin AST ALT Alkaline Phosphatase Troponin I High Sens 31.3 Total Protein Albumin Urine Color Urine Appearance Urine pH Ur Specific [place] Urine Protein Urine Glucose (UA) Urine Ketones Urine Blood Urine Nitrite Ur Leukocyte Esterase Urine RBC Urine WBC Ur Squamous Epith Cells Urine Bacteria Hyaline Casts Influenza Type A (PCR) Influenza Type B (PCR) RSV RNA Qual (PCR) SARS-CoV-2 RNA (RT-PCR) 05/02/22 05/02/22 05/03/22 23:48 23:52 01:05 WBC RBC Hgb Hct MCV MCH MCHC RDW Plt Count MPV Immature Gran % (Auto) Neut % (Auto) Lymph % (Auto) [place] % (Auto) Eos % (Auto) Baso % (Auto) Lymph # (Auto) [place] # (Auto) Eos # (Auto) Baso # (Auto) Abs Immat Gran (auto) Absolute Neuts (auto) Absolute Nucleated RBC Nucleated RBC % (auto) VBG pH 7.21 L VBG pCO2 40 VBG pO2 50 VBG HCO3 16 L VBG O2 Saturation 75.0 VBG Base Excess -10.5 Sodium 140 139 Potassium 6.9 H* 6.7 H* Chloride 118 H 118 H Carbon Dioxide 12 L 12 L Anion Gap 17 16 BUN 82 H 84 H Creatinine 2.96 H 2.99 H Estim Creat Clear Calc 37.8 37.4 Estimated GFR 21 21 POC Glucose Random Glucose 178 H 177 H Lactic Acid Calcium 9.1 9.0 Phosphorus Magnesium Total Bilirubin Direct Bilirubin AST ALT Alkaline Phosphatase Troponin I High Sens Total Protein Albumin Urine Color Urine Appearance Urine pH Ur Specific [place] Urine Protein Urine Glucose (UA) Urine Ketones Urine Blood Urine Nitrite Ur Leukocyte Esterase Urine RBC Urine WBC Ur Squamous Epith Cells Urine Bacteria Hyaline Casts Influenza Type A (PCR) Influenza Type B (PCR) RSV RNA Qual (PCR) SARS-CoV-2 RNA (RT-PCR) 05/03/22 05/03/22 05/03/22 03:13 04:15 06:12 WBC RBC Hgb Hct MCV MCH MCHC RDW Plt Count MPV Immature Gran % (Auto) Neut % (Auto) Lymph % (Auto) [place] % (Auto) Eos % (Auto) Baso % (Auto) Lymph # (Auto) [place] # (Auto) Eos # (Auto) Baso # (Auto) Abs Immat Gran (auto) Absolute Neuts (auto) Absolute Nucleated RBC Nucleated RBC % (auto) VBG pH 7.23 L VBG pCO2 27 VBG pO2 44 VBG HCO3 11 L VBG O2 Saturation 72.0 VBG Base Excess -14.1 Sodium Potassium Chloride Carbon Dioxide Anion Gap BUN Creatinine Estim Creat Clear Calc Estimated GFR POC Glucose Random Glucose Lactic Acid 1.2 Calcium Phosphorus Magnesium Total Bilirubin Direct Bilirubin AST ALT Alkaline Phosphatase Troponin I High Sens Total Protein Albumin Urine Color Yellow Urine Appearance Turbid Urine pH 5.5 Ur Specific [place] 1.015 Urine Protein 100 (2+) H Urine Glucose (UA) Negative Urine Ketones Negative Urine Blood Small (1+) H Urine Nitrite Negative Ur Leukocyte Esterase Large (3+) H Urine RBC 3-5 H Urine WBC >50 H Ur Squamous Epith Cells 3-5 Urine Bacteria 4+ Hyaline Casts 0-2 Influenza Type A (PCR) Influenza Type B (PCR) RSV RNA Qual (PCR) SARS-CoV-2 RNA (RT-PCR) 05/03/22 05/03/22 05/03/22 06:14 06:15 06:24 WBC 11.3 H RBC 4.19 L Hgb 12.7 L Hct 39.8 L MCV 95.0 MCH 30.3 MCHC 31.9 RDW 15.7 Plt Count 185 MPV 11.0 Immature Gran % (Auto) 0.8 H Neut % (Auto) 82.9 H Lymph % (Auto) 7.5 L [place] % (Auto) 6.7 Eos % (Auto) 1.8 Baso % (Auto) 0.3 Lymph # (Auto) 0.9 L [place] # (Auto) 0.8 Eos # (Auto) 0.2 Baso # (Auto) 0.0 Abs Immat Gran (auto) 0.09 H Absolute Neuts (auto) 9.4 H Absolute Nucleated RBC 0.000 Nucleated RBC % (auto) 0.0 VBG pH VBG pCO2 VBG pO2 VBG HCO3 VBG O2 Saturation VBG Base Excess Sodium 139 Potassium 6.3 H* Chloride 117 H Carbon Dioxide 12 L Anion Gap 16 BUN 79 H Creatinine 2.77 H Estim Creat Clear Calc 41.3 Estimated GFR 23 POC Glucose 172 H Random Glucose 172 H Lactic Acid Calcium 8.8 Phosphorus 4.1 Magnesium 1.6 Total Bilirubin Direct Bilirubin AST ALT Alkaline Phosphatase Troponin I High Sens Total Protein Albumin 3.9 Urine Color Urine Appearance Urine pH Ur Specific [place] Urine Protein Urine Glucose (UA) Urine Ketones Urine Blood Urine Nitrite Ur Leukocyte Esterase Urine RBC Urine WBC Ur Squamous Epith Cells Urine Bacteria Hyaline Casts Influenza Type A (PCR) Influenza Type B (PCR) RSV RNA Qual (PCR) SARS-CoV-2 RNA (RT-PCR) 05/03/22 08:29 WBC RBC Hgb Hct MCV MCH MCHC RDW Plt Count MPV Immature Gran % (Auto) Neut % (Auto) Lymph % (Auto) [place] % (Auto) Eos % (Auto) Baso % (Auto) Lymph # (Auto) [place] # (Auto) Eos # (Auto) Baso # (Auto) Abs Immat Gran (auto) Absolute Neuts (auto) Absolute Nucleated RBC Nucleated RBC % (auto) VBG pH VBG pCO2 VBG pO2 VBG HCO3 VBG O2 Saturation VBG Base Excess Sodium Potassium Chloride Carbon Dioxide Anion Gap BUN Creatinine Estim Creat Clear Calc Estimated GFR POC Glucose 154 H Random Glucose Lactic Acid Calcium Phosphorus Magnesium Total Bilirubin Direct Bilirubin AST ALT Alkaline Phosphatase Troponin I High Sens Total Protein Albumin Urine Color Urine Appearance Urine pH Ur Specific [place] Urine Protein Urine Glucose (UA) Urine Ketones Urine Blood Urine Nitrite Ur Leukocyte Esterase Urine RBC Urine WBC Ur Squamous Epith Cells Urine Bacteria Hyaline Casts Influenza Type A (PCR) Influenza Type B (PCR) RSV RNA Qual (PCR) SARS-CoV-2 RNA (RT-PCR) Procedures Date of Service Date of Service: 05/03/22 Assessment & Plan Assessment and plan (1) MARGOTH (acute kidney injury): Status: Acute (2) Acute hyperkalemia: Status: Acute Plan Baseline cr 1.4 to 1.7 MARGOTH due to hypoperfusion vs GN No obstruction by CT Hyperkalemia due to combination of MARGOTH / Losartan and Spironolactone Consult dictated Time Spent With Patient Time: Total time managing care of this patient today ____ minutes.
--- NOTE | 2022-05-03 10:31 | CONS_ITS ---
DATE OF SERVICE: 05/03/2022 REASON FOR CONSULTATION: I was called to see this patient to assist in the management of acute kidney injury and hyperkalemia. HISTORY OF PRESENT ILLNESS: To summarize, Geovanni is a 71-year-old man with a history of chronic kidney disease. Baseline serum creatinine is around 1.4 to 1.7 mg/dL. He is usually being followed at the [facility] and sees Dr. Rachel Renteria. He had lab work yesterday, which revealed severe hyperkalemia and he was asked to come to the hospital. At the time of admission, the serum potassium was elevated at 7.7 mg/dL. He was medically treated with insulin, dextrose and Kayexalate. This morning, serum potassium is down to 6.3. At the time of admission, serum creatinine was 2.86, which is clearly elevated from the baseline and there has been minimal change this morning. He had a CT scan of the abdomen, which did not reveal any hydronephrosis. No calculus. He has a history of renal stones and he follows with Dr. Mackenzie. ONGOING MEDICAL PROBLEMS: 1. Chronic kidney disease, stage 3; hypertension; diabetes mellitus; obesity; renal stones and chronic stasis leg ulcers. ALLERGIES: HE IS ALLERGIC TO PENICILLIN. SOCIAL HISTORY: He lives with his spouse. No history of any smoking or alcohol abuse. HOME MEDICATIONS: Included insulin, vitamin D3, allopurinol, spironolactone 25 mg twice a day, torsemide 20 mg daily, amlodipine 5 mg, lisinopril 10 mg, and rosuvastatin. All the current medications were reviewed. He has received 1.5 g of vancomycin yesterday. REVIEW OF SYSTEMS: No headache, nausea, vomiting. No shortness of breath. No cough. He has little abdominal discomfort. No diarrhea or constipation. No dysuria, urgency, increased frequency. No hematuria. He has chronic leg ulcers. All other systems were reviewed. PHYSICAL EXAMINATION: GENERAL: Geovanni is a 71-year-old man, who is obese, comfortable, lying flat in bed without any distress. NECK: Supple. No JVD. HEENT: Mucosa is dry. LUNGS: Air entry equal. No rales. HEART: S1, S2 heard. No gallop. No rub. ABDOMEN: Obese, soft, nontender. Bowel sounds heard. NEURO: Alert and awake. No asterixis. EXTREMITIES: Has hyperpigmentation and scabbing in both lower extremities. NEUROLOGIC: Alert and awake. No asterixis. No myoclonus. VITAL SIGNS: Blood pressure today was 131/59, pulse 64, temperature 99 degrees. LABORATORY DATA: Urinalysis showed 2+ protein by dipstick, small amount of blood, large amount of white cells and leukocyte esterase. Urine culture is pending. Two years ago, urine protein-creatinine ratio was 0.26. As of this morning, sodium 139, potassium 6.3, CO2 of 12, BUN 17, creatinine 2.77, hemoglobin 12.7, WBC 11.3, platelets of 185. IMPRESSION: A 71-year-old man with longstanding hypertension, diabetes mellitus, obesity and chronic kidney disease, stage 3, comes in with a severe hyperkalemia and superimposed acute kidney injury. The different diagnosis of acute kidney injury would include hypoperfusion/dehydration. Hypoperfusion could be from the combination of diuretics and JT inhibitor, along with spironolactone. CT scan did not reveal any obstruction. Other possibilities including interstitial nephritis and acute glomerulonephritis should be considered. Underlying chronic kidney disease, stage 3, most likely due to hypertensive diabetic kidney disease. Severe hyperkalemia due to the combination of acute kidney injury and continued use of JT inhibitors and spironolactone. Severe metabolic acidosis in the setting of acute kidney injury. Urinary tract infection. RECOMMENDATIONS: For now, we will continue to treat hyperkalemia medically. I agree with sodium bicarbonate infusion, which will help for the translocation of serum potassium. Administer another dose of Lokelma, and the goal is to maintain serum potassium less than 5.2 mg/dL. Discontinue spironolactone. Hold lisinopril. I will hold the torsemide. I would continue with IV hydration, keep intake more than the output. He has received vancomycin. We will watch for vanco toxicity and adjust dose of vancomycin based on creatinine clearance. At the present time, there is no acute indication for dialysis. However, if hyperkalemia is resistant to medical management or if the renal function continues to worsen, he may require renal replacement therapy. Recheck urine for protein-creatinine ratio and again if renal function does not improve, he may require further serological workup. I have discussed with the ICU attending and we will follow him closely along with the team. MD ADINA Saavedra/LORI / [id number] MTDD
[2022-05-03 11:30] LABS: Glucose, Whole Blood 222 mg/dL (60-115)
[2022-05-03] MEDS: Insulin Lispro 100 UNIT/ML 3 ML VIAL SUBCUT ×3 (11:39→21:56)
--- NOTE | 2022-05-03 12:54 | HO.WOUNDCONS ---
History of Present Illness Data of Consult Service Date: 05/03/22 Requesting physician: Kingston Carrera Primary Care Provider: Guzman Edouard [facility] Reason for consult: venous ulcers [id number]: In iCU for weakness/hyperkalemia 6.7 on admission. 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 Was last seen at wound care clinic in 2020 for venous ulcers. Has comorbid CKD, diabetes and hypertension. Does not wear compression. Has not seen vascular recently. [facility] Medical History Diabetes Hypertension Kidney disease Social History Household Members: Spouse Housing: House Do you presently have visiting nurse or other home services: No Patient Tobacco Use Status: Never used Tobacco Use of substances other than those prescribed or required for medical reasons: No Have you been hit, kicked, punched, or otherwise hurt by someone within the past year? If so, by whom?: No Do you feel safe in your current relationship?: Yes Is there a partner from a previous relationship who is making you feel unsafe now?: No Are you made to feel afraid or neglected: No Advance Directives: No Advance Directives Information Provided: No Do you have thoughts of harming others: None Do you have a plan to hurt others: No Plan Recently lost weight without trying: No Eating poorly because of decreased appetite: No Nutrition Risks: No Nutritional Risk Poor oral hygiene: No service: Yes Current occupational status: retired Meds Allergies Allergy/AdvReac Type Severity Reaction Status Date / Time penicillin V Allergy Unknown Hallucinations, Verified 04/08/21 15:49 Sweats Penicillins AdvReac Intermediate HALLUCINATIONS, Verified 04/08/21 15:49 SWEATS Active Medications: Current Medications Heparin Sodium (Porcine) (Heparin Sodium,Porcine 5,000 Unit/Ml Vial) 5,000 unit SUBCUT TID [facility] Last Admin: 05/03/22 08:35 Dose: 5,000 unit Sodium Bicarbonate 150 meq/ (Dextrose) 1,000 mls @ 100 mls/hr IV .Q10H [facility] Last Admin: 05/03/22 12:28 Dose: Not Given Meropenem 1 gm/ Sodium (Chloride) 100 mls @ 200 mls/hr IV Q12H [facility] Last Infusion: 05/03/22 09:05 Dose: Infused Insulin Human Lispro (Insulin Lispro 100 Unit/Ml 3 Ml Vial) 0 unit SUBCUT QIDACHS [facility]; Protocol Last Admin: 05/03/22 11:39 Dose: 4 unit Pharmacy Consult (Consult Rx Perform Med Rec) 1 each MISCELLANE ONCE PRN PRN Reason: Consult order Home Medications Medication Instructions Recorded Confirmed Last Taken Type allopurinol 300 mg tablet 300 mg PO DAILY 11/03/20 05/02/22 05/02/22 History ascorbic acid (vitamin C) 1,000 mg 1,000 mg PO BID 11/03/20 05/02/22 05/02/22 History tablet (Vitamin C) cholecalciferol (vitamin D3) 50 50 mcg PO DAILY 11/03/20 05/02/22 05/02/22 History mcg (2,000 unit) capsule insulin aspart U-100 100 unit/mL 16 unit subcut DAILY@1130 11/03/20 05/02/22 05/02/22 History subcutaneous solution (Novolog U-100 Insulin aspart) insulin aspart U-100 100 unit/mL 24 unit subcut DAILY@1630 11/03/20 05/02/22 05/02/22 History subcutaneous solution (Novolog U-100 Insulin aspart) methenamine hippurate 1 gram tablet 1 g PO BID 11/03/20 05/02/22 05/02/22 History spironolactone 25 mg tablet 25 mg PO BID@0900,1700 11/03/20 05/02/22 05/02/22 History tamsulosin 0.4 mg capsule 0.4 mg PO BEDTIME 11/03/20 05/02/22 05/02/22 History torsemide 20 mg tablet 20 mg PO DAILY 11/03/20 05/02/22 05/02/22 History amlodipine 5 mg tablet 5 mg PO DAILY@1200 05/02/22 05/02/22 05/02/22 History cyanocobalamin (vitamin B-12) 100 200 mcg PO DAILY 05/02/22 05/02/22 05/02/22 History mcg tablet insulin glargine 100 unit/mL (3 38 unit subcut DAILY@1700 05/02/22 05/02/22 05/02/22 History mL) subcutaneous pen (Lantus Solostar U-100 Insulin) insulin lispro 100 unit/mL 8 unit subcut DAILY@0730 05/02/22 05/02/22 05/02/22 History subcutaneous pen lisinopril 10 mg tablet 10 mg PO DAILY@1200 05/02/22 05/02/22 05/02/22 History rosuvastatin 40 mg tablet 20 mg PO DAILY 05/02/22 05/02/22 05/02/22 History Physical Exam Vital Signs and Narrative: Vital Signs: Last Vital Signs Temp 97.7 F 05/03/22 11:00 Pulse 98 05/03/22 12:00 Resp 18 05/03/22 12:00 BP 133/60 05/03/22 12:00 Pulse Ox 95 05/03/22 12:00 O2 Del Method 05/03/22 12:00 BMI result Body Mass Index 62.7 Large calf and LE girth not unusual for patient. Hemosiderin staining without erythema, streaking or warmth. No open ulcers on legs. Left anterior salcedo nodule not draining. Results Labs 05/03/22 06:14 05/03/22 06:15 Labs: Laboratory Results - last 24 hr 05/02/22 05/02/22 05/02/22 19:40 19:40 19:40 MCV 94.6 MCH 30.4 MCHC 32.2 RDW 15.7 Plt Count 179 MPV 10.4 Immature Gran % (Auto) 0.6 H Neut % (Auto) 83.9 H Lymph % (Auto) 6.9 L [place] % (Auto) 6.2 Eos % (Auto) 2.2 Baso % (Auto) 0.2 Lymph # (Auto) 0.9 L [place] # (Auto) 0.8 Eos # (Auto) 0.3 Baso # (Auto) 0.0 Abs Immat Gran (auto) 0.08 H Absolute Neuts (auto) 10.5 H Absolute Nucleated RBC 0.000 Nucleated RBC % (auto) 0.0 VBG pH VBG pCO2 VBG pO2 VBG HCO3 VBG O2 Saturation VBG Base Excess Anion Gap 19 Estim Creat Clear Calc 39.1 Estimated GFR 22 POC Glucose Random Glucose 132 H Lactic Acid Calcium 9.2 Phosphorus Magnesium 1.7 Total Bilirubin 0.6 Direct Bilirubin 0.2 AST 16 ALT 17 Alkaline Phosphatase 84 Troponin I High Sens Total Protein 7.0 Albumin 4.0 Urine Color Urine Appearance Urine pH Ur Specific [place] Urine Protein Urine Glucose (UA) Urine Ketones Urine Blood Urine Nitrite Ur Leukocyte Esterase Urine RBC Urine WBC Ur Squamous Epith Cells Urine Bacteria Hyaline Casts Influenza Type A (PCR) NEGATIVE Influenza Type B (PCR) NEGATIVE RSV RNA Qual (PCR) NEGATIVE SARS-CoV-2 RNA (RT-PCR) NEGATIVE 05/02/22 05/02/22 05/02/22 19:40 20:35 21:20 MCV MCH MCHC RDW Plt Count MPV Immature Gran % (Auto) Neut % (Auto) Lymph % (Auto) [place] % (Auto) Eos % (Auto) Baso % (Auto) Lymph # (Auto) [place] # (Auto) Eos # (Auto) Baso # (Auto) Abs Immat Gran (auto) Absolute Neuts (auto) Absolute Nucleated RBC Nucleated RBC % (auto) VBG pH VBG pCO2 VBG pO2 VBG HCO3 VBG O2 Saturation VBG Base Excess Anion Gap 16 Estim Creat Clear Calc 39.5 Estimated GFR 22 POC Glucose 138 H Random Glucose 157 H Lactic Acid Calcium 8.9 Phosphorus Magnesium Total Bilirubin Direct Bilirubin AST ALT Alkaline Phosphatase Troponin I High Sens 31.3 Total Protein Albumin Urine Color Urine Appearance Urine pH Ur Specific [place] Urine Protein Urine Glucose (UA) Urine Ketones Urine Blood Urine Nitrite Ur Leukocyte Esterase Urine RBC Urine WBC Ur Squamous Epith Cells Urine Bacteria Hyaline Casts Influenza Type A (PCR) Influenza Type B (PCR) RSV RNA Qual (PCR) SARS-CoV-2 RNA (RT-PCR) 05/02/22 05/02/22 05/03/22 23:48 23:52 01:05 MCV MCH MCHC RDW Plt Count MPV Immature Gran % (Auto) Neut % (Auto) Lymph % (Auto) [place] % (Auto) Eos % (Auto) Baso % (Auto) Lymph # (Auto) [place] # (Auto) Eos # (Auto) Baso # (Auto) Abs Immat Gran (auto) Absolute Neuts (auto) Absolute Nucleated RBC Nucleated RBC % (auto) VBG pH 7.21 L VBG pCO2 40 VBG pO2 50 VBG HCO3 16 L VBG O2 Saturation 75.0 VBG Base Excess -10.5 Anion Gap 17 16 Estim Creat Clear Calc 37.8 37.4 Estimated GFR 21 21 POC Glucose Random Glucose 178 H 177 H Lactic Acid Calcium 9.1 9.0 Phosphorus Magnesium Total Bilirubin Direct Bilirubin AST ALT Alkaline Phosphatase Troponin I High Sens Total Protein Albumin Urine Color Urine Appearance Urine pH Ur Specific [place] Urine Protein Urine Glucose (UA) Urine Ketones Urine Blood Urine Nitrite Ur Leukocyte Esterase Urine RBC Urine WBC Ur Squamous Epith Cells Urine Bacteria Hyaline Casts Influenza Type A (PCR) Influenza Type B (PCR) RSV RNA Qual (PCR) SARS-CoV-2 RNA (RT-PCR) 05/03/22 05/03/22 05/03/22 03:13 04:15 06:12 MCV MCH MCHC RDW Plt Count MPV Immature Gran % (Auto) Neut % (Auto) Lymph % (Auto) [place] % (Auto) Eos % (Auto) Baso % (Auto) Lymph # (Auto) [place] # (Auto) Eos # (Auto) Baso # (Auto) Abs Immat Gran (auto) Absolute Neuts (auto) Absolute Nucleated RBC Nucleated RBC % (auto) VBG pH 7.23 L VBG pCO2 27 VBG pO2 44 VBG HCO3 11 L VBG O2 Saturation 72.0 VBG Base Excess -14.1 Anion Gap Estim Creat Clear Calc Estimated GFR POC Glucose Random Glucose Lactic Acid 1.2 Calcium Phosphorus Magnesium Total Bilirubin Direct Bilirubin AST ALT Alkaline Phosphatase Troponin I High Sens Total Protein Albumin Urine Color Yellow Urine Appearance Turbid Urine pH 5.5 Ur Specific [place] 1.015 Urine Protein 100 (2+) H Urine Glucose (UA) Negative Urine Ketones Negative Urine Blood Small (1+) H Urine Nitrite Negative Ur Leukocyte Esterase Large (3+) H Urine RBC 3-5 H Urine WBC >50 H Ur Squamous Epith Cells 3-5 Urine Bacteria 4+ Hyaline Casts 0-2 Influenza Type A (PCR) Influenza Type B (PCR) RSV RNA Qual (PCR) SARS-CoV-2 RNA (RT-PCR) 05/03/22 05/03/22 05/03/22 06:14 06:15 06:24 MCV 95.0 MCH 30.3 MCHC 31.9 RDW 15.7 Plt Count 185 MPV 11.0 Immature Gran % (Auto) 0.8 H Neut % (Auto) 82.9 H Lymph % (Auto) 7.5 L [place] % (Auto) 6.7 Eos % (Auto) 1.8 Baso % (Auto) 0.3 Lymph # (Auto) 0.9 L [place] # (Auto) 0.8 Eos # (Auto) 0.2 Baso # (Auto) 0.0 Abs Immat Gran (auto) 0.09 H Absolute Neuts (auto) 9.4 H Absolute Nucleated RBC 0.000 Nucleated RBC % (auto) 0.0 VBG pH VBG pCO2 VBG pO2 VBG HCO3 VBG O2 Saturation VBG Base Excess Anion Gap 16 Estim Creat Clear Calc 41.3 Estimated GFR 23 POC Glucose 172 H Random Glucose 172 H Lactic Acid Calcium 8.8 Phosphorus 4.1 Magnesium 1.6 Total Bilirubin Direct Bilirubin AST ALT Alkaline Phosphatase Troponin I High Sens Total Protein Albumin 3.9 Urine Color Urine Appearance Urine pH Ur Specific [place] Urine Protein Urine Glucose (UA) Urine Ketones Urine Blood Urine Nitrite Ur Leukocyte Esterase Urine RBC Urine WBC Ur Squamous Epith Cells Urine Bacteria Hyaline Casts Influenza Type A (PCR) Influenza Type B (PCR) RSV RNA Qual (PCR) SARS-CoV-2 RNA (RT-PCR) 05/03/22 05/03/22 08:29 11:27 MCV MCH MCHC RDW Plt Count MPV Immature Gran % (Auto) Neut % (Auto) Lymph % (Auto) [place] % (Auto) Eos % (Auto) Baso % (Auto) Lymph # (Auto) [place] # (Auto) Eos # (Auto) Baso # (Auto) Abs Immat Gran (auto) Absolute Neuts (auto) Absolute Nucleated RBC Nucleated RBC % (auto) VBG pH VBG pCO2 VBG pO2 VBG HCO3 VBG O2 Saturation VBG Base Excess Anion Gap Estim Creat Clear Calc Estimated GFR POC Glucose 154 H 222 H Random Glucose Lactic Acid Calcium Phosphorus Magnesium Total Bilirubin Direct Bilirubin AST ALT Alkaline Phosphatase Troponin I High Sens Total Protein Albumin Urine Color Urine Appearance Urine pH Ur Specific [place] Urine Protein Urine Glucose (UA) Urine Ketones Urine Blood Urine Nitrite Ur Leukocyte Esterase Urine RBC Urine WBC Ur Squamous Epith Cells Urine Bacteria Hyaline Casts Influenza Type A (PCR) Influenza Type B (PCR) RSV RNA Qual (PCR) SARS-CoV-2 RNA (RT-PCR) Imaging Radiologist's Impressions: Impressions Chest X-Ray 05/02/22 19:07 IMPRESSION: Unremarkable examination. Abdomen/Pelvis CT 05/03/22 05:02 IMPRESSION: Suboptimal assessment due to patient body habitus. No acute findings identified. Chronic changes as noted above. Assessment and Plan (1) Varicose veins of left lower extremity with inflammation: Status: Acute Plan 71 year old male with CKD, diabetes and hypertension with weakness and hyperkalemia, not showing fluid overload. No open ulcers on legs with chronic venous insufficiency history. Does not require wound care follow up after discharge. Further assessment of nodule deferred to PCP. Time Spent With Patient Time: Total time managing care of this patient today ____ minutes.
[2022-05-03 13:38] LABS: Anion Gap 16 (12-20); Blood Urea Nitrogen 74 mg/dL (9-16); Calcium 8.8 mg/dL (8.4-10.2); Carbon Dioxide 15 mmol/L (22-29); Chloride 116 mmol/L (96-108); Creatinine Clr Calc Pharmacy 45.2; Estimated Glomerular Filt Rate 25; Glucose Random 159 mg/dL (60-115); Potassium 5.5 mmol/L (3.3-5.1); Sodium 141 mmol/L (135-145)
--- NOTE | 2022-05-03 14:15 | P.CNID_ITS ---
History of Present Illness Data of Consult Service Date: 05/03/22 Requesting physician: Bienvenido Wei Primary Care Provider: Guzman SUGGS Reason for consult: pyuria,bacteriuria He presents [facility]. He came to ICU and had daily WBC done. Yesterday WBC was drawn and was 12.5. He was started on Merem yesterday because of the elevated WBC apparently. He had prior E coli ESBL in urine on 04/08/2022. He is alert and coherent and describes prior UTIs in past but has no symptoms of dysuria which he gets with UTI.no hematuria or abdominal pain. He has no fever and WBC 11,000. Review of Systems Review of Systems: Yes all other systems are reviewed and are negative PMF Past Medical History Medical History Diabetes Hypertension Kidney disease Family History Family history: reviewed and not pertinent Social History Social History Household Members: Spouse Housing: House Do you presently have visiting nurse or other home services: No Patient Tobacco Use Status: Never used Tobacco Use of substances other than those prescribed or required for medical reasons: No Have you been hit, kicked, punched, or otherwise hurt by someone within the past year? If so, by whom?: No Do you feel safe in your current relationship?: Yes Is there a partner from a previous relationship who is making you feel unsafe now?: No Are you made to feel afraid or neglected: No Advance Directives: No Advance Directives Information Provided: No Do you have thoughts of harming others: None Do you have a plan to hurt others: No Plan Recently lost weight without trying: No Eating poorly because of decreased appetite: No Nutrition Risks: No Nutritional Risk Poor oral hygiene: No service: Yes Current occupational status: retired Meds Allergies Allergy/AdvReac Type Severity Reaction Status Date / Time penicillin V Allergy Unknown Hallucinations, Verified 04/08/21 15:49 Sweats Penicillins AdvReac Intermediate HALLUCINATIONS, Verified 04/08/21 15:49 SWEATS Active Medications: Current Medications Heparin Sodium (Porcine) (Heparin Sodium,Porcine 5,000 Unit/Ml Vial) 5,000 unit SUBCUT TID [facility] Last Admin: 05/03/22 14:13 Dose: 5,000 unit Sodium Bicarbonate 150 meq/ (Dextrose) 1,000 mls @ 100 mls/hr IV .Q10H [facility] Last Admin: 05/03/22 14:13 Dose: 100 mls/hr Meropenem 1 gm/ Sodium (Chloride) 100 mls @ 200 mls/hr IV Q12H [facility] Last Infusion: 05/03/22 09:05 Dose: Infused Insulin Human Lispro (Insulin Lispro 100 Unit/Ml 3 Ml Vial) 0 unit SUBCUT QIDACHS [facility]; Protocol Last Admin: 05/03/22 11:39 Dose: 4 unit Pharmacy Consult (Consult Rx Perform Med Rec) 1 each MISCELLANE ONCE PRN PRN Reason: Consult order Home Medications Medication Instructions Recorded Confirmed Last Taken Type allopurinol 300 mg tablet 300 mg PO DAILY 11/03/20 05/02/22 05/02/22 History ascorbic acid (vitamin C) 1,000 mg 1,000 mg PO BID 11/03/20 05/02/22 05/02/22 History tablet (Vitamin C) cholecalciferol (vitamin D3) 50 50 mcg PO DAILY 11/03/20 05/02/22 05/02/22 History mcg (2,000 unit) capsule insulin aspart U-100 100 unit/mL 16 unit subcut DAILY@1130 11/03/20 05/02/22 05/02/22 History subcutaneous solution (Novolog U-100 Insulin aspart) insulin aspart U-100 100 unit/mL 24 unit subcut DAILY@1630 11/03/20 05/02/22 05/02/22 History subcutaneous solution (Novolog U-100 Insulin aspart) methenamine hippurate 1 gram tablet 1 g PO BID 11/03/20 05/02/22 05/02/22 History spironolactone 25 mg tablet 25 mg PO BID@0900,1700 11/03/20 05/02/22 05/02/22 History tamsulosin 0.4 mg capsule 0.4 mg PO BEDTIME 11/03/20 05/02/22 05/02/22 History torsemide 20 mg tablet 20 mg PO DAILY 11/03/20 05/02/22 05/02/22 History amlodipine 5 mg tablet 5 mg PO DAILY@1200 05/02/22 05/02/22 05/02/22 History cyanocobalamin (vitamin B-12) 100 200 mcg PO DAILY 05/02/22 05/02/22 05/02/22 History mcg tablet insulin glargine 100 unit/mL (3 38 unit subcut DAILY@1700 05/02/22 05/02/22 05/02/22 History mL) subcutaneous pen (Lantus Solostar U-100 Insulin) insulin lispro 100 unit/mL 8 unit subcut DAILY@0730 05/02/22 05/02/22 05/02/22 History subcutaneous pen lisinopril 10 mg tablet 10 mg PO DAILY@1200 05/02/22 05/02/22 05/02/22 History rosuvastatin 40 mg tablet 20 mg PO DAILY 05/02/22 05/02/22 05/02/22 History Physical Exam Vital Signs: Vital Signs: Last Vital Signs Temp 97.7 F 05/03/22 11:00 Pulse 65 05/03/22 13:00 Resp 13 05/03/22 13:00 BP 138/70 05/03/22 13:00 Pulse Ox 100 05/03/22 13:00 O2 Del Method 05/03/22 13:00 BMI result Body Mass Index 62.7 Const: General: cooperative HEENT: Head: Yes normal to inspection Face and sinus: Yes normal facial exam Mouth: Normal oral and palatal mucosa present Teeth and gingiva: dentition normal Eyes: General: appearance normal, both eyes and all related structures Pupils: Equal, round and reactive pupils present Resp: Effort & Inspection: normal respiratory effort Cardio: Rate: regular rate Rhythm: regular rhythm GI: Palpation (GI): Soft to palpation and nontender : General: Yes no CVA tenderness Back/Spine/Pelvis: Back: no CVA tenderness Skin: General skin exam: no rashes or lesions noted Neuro: General: moves all extremities Cranial nerves: Yes Equal, round and reactive pupils present Extrem: General: Yes normal to inspection Psych: Appearance: grossly normal Results Labs 05/03/22 06:14 05/03/22 12:36 Labs: Short CBC 05/02/22 05/03/22 Range/Units 19:40 06:14 WBC 12.5 H 11.3 H (4.8-10.8) X10*3/uL Hgb 13.0 L 12.7 L (14.0-18.0) g/dl Hct 40.4 L 39.8 L (42.0-52.0) % Plt Count 179 185 (160-400) X10*3/uL BMP 05/02/22 05/02/22 05/02/22 19:40 21:20 23:48 Sodium 138 139 140 Potassium 7.7 H* D 7.2 H* 6.9 H* Chloride 115 H 115 H 118 H Carbon Dioxide 12 L 15 L 12 L BUN 83 H 82 H 82 H Creatinine 2.86 H 2.83 H 2.96 H Calcium 9.2 8.9 9.1 05/03/22 05/03/22 05/03/22 01:05 06:15 12:36 Sodium 139 139 141 Potassium 6.7 H* 6.3 H* 5.5 H Chloride 118 H 117 H 116 H Carbon Dioxide 12 L 12 L 15 L BUN 84 H 79 H 74 H Creatinine 2.99 H 2.77 H 2.53 H Calcium 9.0 8.8 8.8 Liver Function 05/02/22 05/03/22 Range/Units 19:40 06:15 Total Bilirubin 0.6 (0.0-1.0) mg/dL Direct Bilirubin 0.2 (0.0-0.5) mg/dL AST 16 (5-37) U/L ALT 17 (0-40) U/L Alkaline Phosphatase 84 (39-117) U/L Albumin 4.0 3.9 (3.5-5.0) g/dL Urine 05/03/22 Range/Units 04:15 Urine Color Yellow Urine Appearance Turbid Urine pH 5.5 (5.0-9.0) Ur Specific [place] 1.015 (1.005-1.025) Urine Protein 100 (2+) H (Neg-Trace) mg/dL Urine Glucose (UA) Negative (Negative) mg/dL Assessment and Plan (1) Leukocytosis: Status: Acute He had slight increase in WBC but no fever and no urinary symptoms. He had prior resistant organisms in urine. There are no signs of urinary infection at this time. (2) Renal failure: Status: Acute (3) Diabetes: Status: Acute Stop Merem as even if has ESBL organisms in urine they are likely colonized since there are no signs of sepsis or infection concerns per patient and no feve r . Time Spent With Patient Time: Total time managing care of this patient today ____ minutes.
[2022-05-03 17:38] LABS: Glucose, Whole Blood 180 mg/dL (60-115)
[2022-05-03 21:08] LABS: Glucose, Whole Blood 246 mg/dL (60-115)
[2022-05-03] MEDS: Nystatin Powder 15 GM BOTTLE 1 APPL TOPICAL (21:56)
[2022-05-04 03:32] VITALS: BP 136/65; PULSE 98; RESP 15; TEMP 36.5; O2SAT 97
[2022-05-04 06:30] LABS: Hematocrit 35.4 % (42.0-52.0); Hemoglobin 11.5 g/dl (14.0-18.0); Mean Corpuscular HGB Conc 32.5 g/dl (31.0-36.0); Mean Corpuscular Hemoglobin 30.7 pg (27.0-33.0); Mean Corpuscular Volume 94.4 fL (80.0-98.0); Mean Platelet Volume 11.5 fL (9.4-12.4); Platelet Count 155 X10*3/uL (160-400); Red Blood Count 3.75 X10*6/uL (4.60-5.80); Red Cell Distribution Width 15.5 % (11.0-16.0); White Blood Count 8.6 X10*3/uL (4.8-10.8)
[2022-05-04 07:05] LABS: Anion Gap 16 (12-20); Blood Urea Nitrogen 64 mg/dL (9-16); Calcium 8.1 mg/dL (8.4-10.2); Carbon Dioxide 17 mmol/L (22-29); Chloride 113 mmol/L (96-108); Estimated Glomerular Filt Rate 28; Glucose Random 207 mg/dL (60-115); Potassium 5.2 mmol/L (3.3-5.1); Sodium 141 mmol/L (135-145)
[2022-05-04 07:42] VITALS: BP 140/70; PULSE 66; RESP 20; TEMP 36.3; O2SAT 99
[2022-05-04 07:42] LABS: Glucose, Whole Blood 200 mg/dL (60-115)
[2022-05-04] MEDS: Insulin Lispro 100 UNIT/ML 3 ML VIAL SUBCUT ×4 (07:59→20:21)
[2022-05-04] MEDS: Heparin Sodium,Porcine 5,000 UNIT/ML VIAL 5000 UNIT SUBCUT (07:59)
[2022-05-04] MEDS: Nystatin Powder 15 GM BOTTLE 1 APPL TOPICAL ×2 (08:01→22:27)
[2022-05-04] MEDS: Sodium Bicarbonate 8.4% 150 MEQ in Dextrose 5 % 850 ML 100 MEQ IV ×2 (08:31→18:28)
--- NOTE | 2022-05-04 09:09 | MHC.CM.PN ---
CM met with Patient at bedside. Patient lives in a house with his /HCP and he uses a walker and crutches to assist with mobility. Home/self care is the goal and CM has initiated and will follow for dc planning. Patient has received Moderna/Covid vax x3 and his PCP is Dr. Guzman Edouard.
[2022-05-04 11:01] VITALS: BP 130/60; PULSE 69; RESP 20; TEMP 36.6; O2SAT 99
[2022-05-04 11:14] LABS: Glucose, Whole Blood 197 mg/dL (60-115)
--- NOTE | 2022-05-04 13:49 | HO.PM.IMPN ---
Subjective Subjective Date of Service: 05/04/22 Interval History: cc: hyperkalemia interval history: diarrhea Physical Exam Vital Signs: Vital Signs: Last Vital Signs Temp 97.9 F 05/04/22 11:01 Pulse 69 05/04/22 11:01 Resp 20 05/04/22 11:01 BP 130/60 05/04/22 11:01 Pulse Ox 99 05/04/22 11:01 O2 Del Method 05/04/22 11:01 BMI result Body Mass Index 62.7 General: AO X 3, no acute distress Resp: CTA bilateral, no accessory muscles used CVS: S1,S2,RRR GI: soft, non tender, non distended Neuro: motor grossly intact, alert Psych: appropriate affect, appropriate insight Objective Data Active Medications Heparin Sodium (Porcine) (Heparin Sodium,Porcine 5,000 Unit/Ml Vial) 5,000 unit SUBCUT TID [facility] Last Admin: 05/04/22 07:59 Dose: 5,000 unit Documented By: LINDA Sodium Bicarbonate 150 meq/ (Dextrose) 1,000 mls @ 100 mls/hr IV .Q10H [facility] Last Admin: 05/04/22 08:31 Dose: 100 mls/hr Documented By: LINDA Insulin Human Lispro (Insulin Lispro 100 Unit/Ml 3 Ml Vial) 0 unit SUBCUT QIDACHS [facility]; Protocol Last Admin: 05/04/22 11:22 Dose: 2 unit Documented By: LINDA Nystatin (Nystatin Powder 15 Gm Bottle) 1 appl TOPICAL BID [facility]; Protocol Last Admin: 05/04/22 08:01 Dose: 1 appl Documented By: LINDA Pharmacy Consult (Consult Rx Perform Med Rec) 1 each MISCELLANE ONCE PRN PRN Reason: Consult order Labs 05/04/22 06:06 05/04/22 06:06 Labs: Laboratory Results - last 24 hr 05/03/22 05/03/22 05/04/22 17:34 21:03 06:06 MCV 94.4 MCH 30.7 MCHC 32.5 RDW 15.5 Plt Count 155 L MPV 11.5 Absolute Nucleated RBC 0.000 Nucleated RBC % (auto) 0.0 Anion Gap Estim Creat Clear Calc Estimated GFR POC Glucose 180 H 246 H Random Glucose Calcium 05/04/22 05/04/22 05/04/22 06:06 07:38 11:03 MCV MCH MCHC RDW Plt Count MPV Absolute Nucleated RBC Nucleated RBC % (auto) Anion Gap 16 Estim Creat Clear Calc 50.0 Estimated GFR 28 POC Glucose 200 H 197 H Random Glucose 207 H Calcium 8.1 L D Microbiology Microbiology Results: Microbiology 05/03/22 04:14 Urine Culture - Preliminary Urine clean catch - Urine scott top Gram negative waqar 05/03/22 03:13 Blood Culture - Preliminary Blood - Venous No growth after 24 hours. 05/03/22 03:13 Blood Culture - Preliminary Blood - Venous No growth after 24 hours. Assessment and Plan (1) Diabetes: Status: Acute Plan 71M PMH chronic afib, DM, CKD III, HTN, gout, sent in for margoth and severe hyperakelmia, was treated in ICU with kayexlyate and sodium bicarbonate, potassium improved and patient downgraded to medical floor. MARGOTH on CKD III with severe hyperkalemia and metabolic acidosis continue iv bicarb, nephro following, monitor bactuira ID appreciated, no clinical UTI DM inuslin morbid obesity wegiht loss diarrhea check stool pcr chronic afib eliquis htn amlodipine hold lisinopril hold aldactone Time Spent With Patient Time: Total time managing care of this patient today ____ minutes. Quality Stroke Does the patient have a stroke diagnosis?: No VTE Prior VTE?: No VTE Risk Level:: Medical - moderate - high VTE Device Contraindication: N/A - Device Ordered VTE Drug Contraindication: N/A - Med Ordered
[2022-05-04 16:00] VITALS: BP 150/69; PULSE 75; RESP 18; TEMP 37.3; O2SAT 99
[2022-05-04 16:32] LABS: Glucose, Whole Blood 159 mg/dL (60-115)
[2022-05-04] MEDS: Insulin Glargine,Hum.rec.anlog 100 UNIT/ML 10 ML VIAL 38 UNIT SUBCUT (16:50)
[2022-05-04 17:22] LABS: CDiff Gene PCR POSITIVE (Negative)
[2022-05-04 18:14] LABS: CDIFF Internal ctrl Dots and bkg OK (V); CDiff Toxin Negative (Negative)
[2022-05-04 19:09] VITALS: BP 131/61; PULSE 69; RESP 18; TEMP 37.2; O2SAT 98
[2022-05-04 19:34] LABS: Glucose, Whole Blood 204 mg/dL (60-115)
[2022-05-04] MEDS: Apixaban 5 MG TABLET PO (20:19)
[2022-05-04] MEDS: Tamsulosin HCL 0.4 MG CAPSULE PO (20:20)
[2022-05-04] MEDS: Ascorbic Acid 500 MG TABLET 1000 MG PO (20:24)
[2022-05-04 23:29] VITALS: BP 160/64; PULSE 54; RESP 18; TEMP 37.2; O2SAT 97
[2022-05-05 03:25] VITALS: BP 144/61; PULSE 64; RESP 18; TEMP 36.8; O2SAT 98
[2022-05-05 06:39] LABS: Hemoglobin 12.1 g/dl (14.0-18.0); Mean Corpuscular HGB Conc 32.7 g/dl (31.0-36.0); Mean Corpuscular Hemoglobin 31.3 pg (27.0-33.0); Mean Corpuscular Volume 95.6 fL (80.0-98.0); Mean Platelet Volume 11.2 fL (9.4-12.4); Platelet Count 155 X10*3/uL (160-400); Red Blood Count 3.87 X10*6/uL (4.60-5.80); Red Cell Distribution Width 15.3 % (11.0-16.0); White Blood Count 8.9 X10*3/uL (4.8-10.8)
[2022-05-05 07:18] LABS: Anion Gap 16 (12-20); Blood Urea Nitrogen 51 mg/dL (9-16); Calcium 8.1 mg/dL (8.4-10.2); Carbon Dioxide 23 mmol/L (22-29); Chloride 107 mmol/L (96-108); Creatinine Clr Calc Pharmacy 61.2; Estimated Glomerular Filt Rate 36; Glucose Fasting 195 mg/dL (60-99); Sodium 141 mmol/L (135-145)
[2022-05-05 07:22] LABS: Glucose, Whole Blood 187 mg/dL (60-115)
[2022-05-05 07:27] VITALS: BP 125/58; PULSE 69; RESP 20; TEMP 36.7; O2SAT 99
[2022-05-05] MEDS: Insulin Lispro 100 UNIT/ML 3 ML VIAL SUBCUT ×4 (07:42→19:52)
[2022-05-05] MEDS: Ascorbic Acid 500 MG TABLET 1000 MG PO ×2 (07:43→19:51)
[2022-05-05] MEDS: Apixaban 5 MG TABLET PO ×2 (07:44→19:51)
[2022-05-05] MEDS: Atorvastatin Calcium 80 MG TABLET PO (07:44)
[2022-05-05] MEDS: Cyanocobalamin (Vitamin B-12) 100 MCG TABLET 200 MCG PO (07:44)
[2022-05-05] MEDS: Cholecalciferol (Vitamin D3) 25 MCG TABLET 50 MCG PO (07:44)
[2022-05-05] MEDS: Nystatin Powder 15 GM BOTTLE 1 APPL TOPICAL ×2 (07:45→19:52)
[2022-05-05] MEDS: Sodium Bicarbonate 8.4% 150 MEQ in Dextrose 5 % 850 ML 100 MEQ IV (08:23)
--- NOTE | 2022-05-05 10:34 | P.PNIM_ITS ---
Subjective Subjective Date of Service: 05/05/22 Interval History: cc: hyperkalemia interval history: diarrhea Physical Exam Vital Signs: Vital Signs: Last Vital Signs Temp 98.0 F 05/05/22 07:27 Pulse 69 05/05/22 07:27 Resp 20 05/05/22 07:27 BP 125/58 L 05/05/22 07:27 Pulse Ox 99 05/05/22 07:27 O2 Del Method 05/05/22 07:27 BMI result Body Mass Index 62.7 General: AO X 3, no acute distress Resp: CTA bilateral, no accessory muscles used CVS: S1,S2,RRR GI: soft, non tender, non distended Neuro: motor grossly intact, alert Psych: appropriate affect, appropriate insight Objective Data Active Medications Amlodipine Besylate (Amlodipine Besylate 5 Mg Tablet) 5 mg PO DAILY@1200 [facility]; Protocol Apixaban (Apixaban 5 Mg Tablet) 5 mg PO BID [facility] Last Admin: 05/05/22 07:44 Dose: 5 mg Documented By: SHO Ascorbic Acid (Ascorbic Acid 500 Mg Tablet) 1,000 mg PO BID [facility] Last Admin: 05/05/22 07:43 Dose: 1,000 mg Documented By: SHO Atorvastatin Calcium (Atorvastatin Calcium 80 Mg Tablet) 80 mg PO DAILY [facility] Last Admin: 05/05/22 07:44 Dose: 80 mg Documented By: SHO Cyanocobalamin (Cyanocobalamin (Vitamin B-12) 100 Mcg Tablet) 200 mcg PO DAILY [facility] Last Admin: 05/05/22 07:44 Dose: 200 mcg Documented By: SHO Insulin Glargine (Insulin Glargine,Hum.Rec.Anlog 100 Unit/Ml 10 Ml Vial) 38 unit SUBCUT DAILY@1700 [facility] Last Admin: 05/04/22 16:50 Dose: 38 unit Documented By: LINDA Insulin Human Lispro (Insulin Lispro 100 Unit/Ml 3 Ml Vial) 0 unit SUBCUT QIDACHS [facility]; Protocol Last Admin: 05/05/22 07:42 Dose: 2 unit Documented By: SHO Nystatin (Nystatin Powder 15 Gm Bottle) 1 appl TOPICAL BID [facility]; Protocol Last Admin: 05/05/22 07:45 Dose: 1 appl Documented By: SHO Pharmacy Consult (Consult Rx Perform Med Rec) 1 each MISCELLANE ONCE PRN PRN Reason: Consult order Tamsulosin HCl (Tamsulosin Hcl 0.4 Mg Capsule) 0.4 mg PO BEDTIME [facility] Last Admin: 05/04/22 20:20 Dose: 0.4 mg Documented By: PRICE Vitamin D (Cholecalciferol (Vitamin D3) 25 Mcg Tablet) 50 mcg PO DAILY [facility] Last Admin: 05/05/22 07:44 Dose: 50 mcg Documented By: ANGELORRDeep Labs 05/05/22 06:24 05/05/22 06:24 Labs: Laboratory Results - last 24 hr 05/04/22 05/04/22 05/04/22 11:03 14:56 16:27 MCV MCH MCHC RDW Plt Count MPV Absolute Nucleated RBC Nucleated RBC % (auto) Anion Gap Estim Creat Clear Calc Estimated GFR POC Glucose 197 H 159 H Fasting Glucose Calcium C. difficile Tox B Gene POSITIVE A* C. difficile Toxin A&B Negative C. difficile Interpret SEE NOTE 05/04/22 05/05/22 05/05/22 19:31 06:24 06:24 MCV 95.6 MCH 31.3 MCHC 32.7 RDW 15.3 Plt Count 155 L MPV 11.2 Absolute Nucleated RBC 0.000 Nucleated RBC % (auto) 0.0 Anion Gap 16 Estim Creat Clear Calc 61.2 Estimated GFR 36 POC Glucose 204 H Fasting Glucose 195 H Calcium 8.1 L C. difficile Tox B Gene C. difficile Toxin A&B C. difficile Interpret 05/05/22 07:19 MCV MCH MCHC RDW Plt Count MPV Absolute Nucleated RBC Nucleated RBC % (auto) Anion Gap Estim Creat Clear Calc Estimated GFR POC Glucose 187 H Fasting Glucose Calcium C. difficile Tox B Gene C. difficile Toxin A&B C. difficile Interpret Microbiology Microbiology Results: Microbiology 05/03/22 04:14 Urine Culture - Final Urine clean catch - Urine scott top Escherichia coli 05/03/22 03:13 Blood Culture - Preliminary Blood - Venous No growth after 48 hours. 05/03/22 03:13 Blood Culture - Preliminary Blood - Venous No growth after 48 hours. Assessment and Plan (1) Diabetes: Status: Acute Plan 71M PMH chronic afib, DM, CKD III, HTN, gout, sent in for margoth and severe hyperakelmia, was treated in ICU with kayexlyate and sodium bicarbonate, potassium improved and patient downgraded to medical floor. 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 Quality Stroke Does the patient have a stroke diagnosis?: No VTE Prior VTE?: No VTE Risk Level:: Medical - moderate - high VTE Device Contraindication: N/A - Device Ordered VTE Drug Contraindication: N/A - Med Ordered
[2022-05-05 10:56] LABS: Glucose, Whole Blood 204 mg/dL (60-115)
[2022-05-05 11:14] VITALS: BP 149/62; PULSE 63; RESP 16; TEMP 36.7; O2SAT 98
--- NOTE | 2022-05-05 11:21 | PM.PNNEP ---
Subjective Subjective Date of Service: 05/04/22 Interval history: Events noted. All recent data reviewed Physical Exam Vital Signs: Vital Signs: Last Vital Signs Temp 98.1 F 05/05/22 11:14 Pulse 63 05/05/22 11:14 Resp 16 05/05/22 11:14 BP 149/62 H 05/05/22 11:14 Pulse Ox 98 05/05/22 11:14 O2 Del Method 05/05/22 11:14 BMI result Body Mass Index 62.7 Const: General: no acute distress Orientation/consciousness: patient oriented x3 Eyes: EOM: EOMs intact bilaterally Neck: Neck: Yes supple Resp: Auscultation: diminished lung sounds Cardio: Rate: regular rate GI: Palpation (GI): Soft to palpation Neuro: General: patient oriented x3 and moves all extremities Objective Data Labs 05/05/22 06:24 05/05/22 06:24 Labs: Laboratory Results - last 24 hr 05/04/22 05/04/22 05/04/22 14:56 16:27 19:31 WBC RBC Hgb Hct MCV MCH MCHC RDW Plt Count MPV Absolute Nucleated RBC Nucleated RBC % (auto) Sodium Potassium Chloride Carbon Dioxide Anion Gap BUN Creatinine Estim Creat Clear Calc Estimated GFR POC Glucose 159 H 204 H Fasting Glucose Calcium C. difficile Tox B Gene POSITIVE A* C. difficile Toxin A&B Negative C. difficile Interpret SEE NOTE 05/05/22 05/05/22 05/05/22 06:24 06:24 07:19 WBC 8.9 RBC 3.87 L Hgb 12.1 L Hct 37.0 L MCV 95.6 MCH 31.3 MCHC 32.7 RDW 15.3 Plt Count 155 L MPV 11.2 Absolute Nucleated RBC 0.000 Nucleated RBC % (auto) 0.0 Sodium 141 Potassium 5.0 Chloride 107 Carbon Dioxide 23 Anion Gap 16 BUN 51 H Creatinine 1.87 H Estim Creat Clear Calc 61.2 Estimated GFR 36 POC Glucose 187 H Fasting Glucose 195 H Calcium 8.1 L C. difficile Tox B Gene C. difficile Toxin A&B C. difficile Interpret 05/05/22 10:53 WBC RBC Hgb Hct MCV MCH MCHC RDW Plt Count MPV Absolute Nucleated RBC Nucleated RBC % (auto) Sodium Potassium Chloride Carbon Dioxide Anion Gap BUN Creatinine Estim Creat Clear Calc Estimated GFR POC Glucose 204 H Fasting Glucose Calcium C. difficile Tox B Gene C. difficile Toxin A&B C. difficile Interpret Microbiology Microbiology Results: Microbiology 05/03/22 04:14 Urine clean catch - Urine scott top Urine Culture - Final Escherichia coli 05/03/22 03:13 Blood - Venous Blood Culture - Preliminary No growth after 48 hours. 05/03/22 03:13 Blood - Venous Blood Culture - Preliminary No growth after 48 hours. Procedures Date of Service Date of Service: 05/04/22 Assessment & Plan Assessment and plan (1) MARGOTH (acute kidney injury): Status: Acute Assessment and Plan: Baseline cr 1.4 to 1.7 MARGOTH due to hypoperfusion No obstruction by CT C/W current supportive care Progress Note: Quality Stroke Does the patient have a stroke diagnosis?: No
--- NOTE | 2022-05-05 11:25 | PM.PNNEP ---
Subjective Subjective Date of Service: 05/05/22 Interval history: Events noted. All recent data reviewed Physical Exam Vital Signs: Vital Signs: Last Vital Signs Temp 98.1 F 05/05/22 11:14 Pulse 63 05/05/22 11:14 Resp 16 05/05/22 11:14 BP 149/62 H 05/05/22 11:14 Pulse Ox 98 05/05/22 11:14 O2 Del Method 05/05/22 11:14 BMI result Body Mass Index 62.7 Const: General: no acute distress Orientation/consciousness: patient oriented x3 Eyes: EOM: EOMs intact bilaterally Neck: Neck: Yes supple Resp: Auscultation: diminished lung sounds Cardio: Rate: regular rate GI: Palpation (GI): Soft to palpation Neuro: General: patient oriented x3 and moves all extremities Objective Data Labs 05/05/22 06:24 05/05/22 06:24 Labs: Laboratory Results - last 24 hr 05/04/22 05/04/22 05/04/22 14:56 16:27 19:31 WBC RBC Hgb Hct MCV MCH MCHC RDW Plt Count MPV Absolute Nucleated RBC Nucleated RBC % (auto) Sodium Potassium Chloride Carbon Dioxide Anion Gap BUN Creatinine Estim Creat Clear Calc Estimated GFR POC Glucose 159 H 204 H Fasting Glucose Calcium C. difficile Tox B Gene POSITIVE A* C. difficile Toxin A&B Negative C. difficile Interpret SEE NOTE 05/05/22 05/05/22 05/05/22 06:24 06:24 07:19 WBC 8.9 RBC 3.87 L Hgb 12.1 L Hct 37.0 L MCV 95.6 MCH 31.3 MCHC 32.7 RDW 15.3 Plt Count 155 L MPV 11.2 Absolute Nucleated RBC 0.000 Nucleated RBC % (auto) 0.0 Sodium 141 Potassium 5.0 Chloride 107 Carbon Dioxide 23 Anion Gap 16 BUN 51 H Creatinine 1.87 H Estim Creat Clear Calc 61.2 Estimated GFR 36 POC Glucose 187 H Fasting Glucose 195 H Calcium 8.1 L C. difficile Tox B Gene C. difficile Toxin A&B C. difficile Interpret 05/05/22 10:53 WBC RBC Hgb Hct MCV MCH MCHC RDW Plt Count MPV Absolute Nucleated RBC Nucleated RBC % (auto) Sodium Potassium Chloride Carbon Dioxide Anion Gap BUN Creatinine Estim Creat Clear Calc Estimated GFR POC Glucose 204 H Fasting Glucose Calcium C. difficile Tox B Gene C. difficile Toxin A&B C. difficile Interpret Microbiology Microbiology Results: Microbiology 05/03/22 04:14 Urine clean catch - Urine scott top Urine Culture - Final Escherichia coli 05/03/22 03:13 Blood - Venous Blood Culture - Preliminary No growth after 48 hours. 05/03/22 03:13 Blood - Venous Blood Culture - Preliminary No growth after 48 hours. Procedures Date of Service Date of Service: 05/05/22 Assessment & Plan Assessment and plan (1) MARGOTH (acute kidney injury): Status: Acute Assessment and Plan: Baseline cr 1.4 to 1.7 MARGOTH due to hypoperfusion with tubular injury No obstruction by CT; Renal function improved/stable C/W rest of current supportive management Time Spent With Patient Time: Total time managing care of this patient today ____ minutes. Progress Note: Quality Stroke Does the patient have a stroke diagnosis?: No
[2022-05-05] MEDS: amLODIPine Besylate 5 MG TABLET PO (11:34)
[2022-05-05 13:02] LABS: Campylobacter Not Detected (Not Detect.); E. coli EAEC Not Detected (Not Detect.); E. coli EPEC Not Detected (Not Detect.); E. coli ETEC Not Detected (Not Detect.); E. coli STEC Not Detected (Not Detect.); Plesiomonas shigelloides Not Detected (Not Detect.); Salmonella Not Detected (Not Detect.); Shigella sp./EIEC Not Detected (Not Detect.); Vibrio Not Detected (Not Detect.); Vibrio Cholerae Not Detected (Not Detect.); Yersinia enterocolitica Not Detected (Not Detect.)
[2022-05-05 13:03] LABS: Adenovirus F 40/41 Not Detected (Not Detect.); Astrovirus Not Detected (Not Detect.); Cryptosporidium Not Detected (Not Detect.); Cyclospora cayetanensis Not Detected (Not Detect.); Entamoeba histolytica Not Detected (Not Detect.); Giardia lamblia Not Detected (Not Detect.); Norovirus GI/GII Not Detected (Not Detect.); Rotavirus A Not Detected (Not Detect.); Sapovirus Not Detected (Not Detect.)
[2022-05-05 15:46] VITALS: BP 145/61; PULSE 79; RESP 18; TEMP 36.2; O2SAT 98
[2022-05-05 15:56] LABS: Glucose, Whole Blood 194 mg/dL (60-115)
[2022-05-05] MEDS: Insulin Glargine,Hum.rec.anlog 100 UNIT/ML 10 ML VIAL 38 UNIT SUBCUT (17:14)
[2022-05-05 19:23] VITALS: BP 138/67; PULSE 62; RESP 18; TEMP 36.2; O2SAT 96
[2022-05-05 19:31] LABS: Glucose, Whole Blood 215 mg/dL (60-115)
[2022-05-05] MEDS: Tamsulosin HCL 0.4 MG CAPSULE PO (19:51)
[2022-05-06] VITALS: BP 149/62; PULSE 63; RESP 18; TEMP 37.1; O2SAT 96
[2022-05-06 03:27] VITALS: BP 139/65; PULSE 67; RESP 20; TEMP 36.8; O2SAT 98
[2022-05-06 06:00] VITALS: BMI 62.8
[2022-05-06 07:31] LABS: Hematocrit 36.3 % (42.0-52.0); Hemoglobin 11.7 g/dl (14.0-18.0); Mean Corpuscular HGB Conc 32.2 g/dl (31.0-36.0); Mean Corpuscular Hemoglobin 30.4 pg (27.0-33.0); Mean Corpuscular Volume 94.3 fL (80.0-98.0); Mean Platelet Volume 11.4 fL (9.4-12.4); Platelet Count 153 X10*3/uL (160-400); Red Blood Count 3.85 X10*6/uL (4.60-5.80); Red Cell Distribution Width 15.1 % (11.0-16.0); White Blood Count 9.4 X10*3/uL (4.8-10.8)
[2022-05-06 07:33] LABS: Glucose, Whole Blood 143 mg/dL (60-115)
[2022-05-06 07:38] VITALS: BP 151/72; PULSE 59; RESP 20; TEMP 36.5; O2SAT 98
[2022-05-06 07:45] LABS: Anion Gap 17 (12-20); Blood Urea Nitrogen 37 mg/dL (9-16); Calcium 8.2 mg/dL (8.4-10.2); Carbon Dioxide 22 mmol/L (22-29); Chloride 106 mmol/L (96-108); Creatinine Clr Calc Pharmacy 78.5; Estimated Glomerular Filt Rate 48; Glucose Fasting 157 mg/dL (60-99); Potassium 4.5 mmol/L (3.3-5.1); Sodium 140 mmol/L (135-145)
--- NOTE | 2022-05-06 10:41 | MHC.CM.PN ---
Per ROUNDS discussion, Patient is experiencing a lot of Diarrhea and is not yet medically cleared for dc; home is the goal and CM will continue to follow.
--- NOTE | 2022-05-06 11:17 | PM.PNNEP ---
Subjective Subjective Date of Service: 05/06/22 Interval history: Cr stable no acute events Physical Exam Vital Signs: Vital Signs: Last Vital Signs Temp 97.7 F 05/06/22 07:38 Pulse 59 05/06/22 07:38 Resp 20 05/06/22 07:38 BP 151/72 H 05/06/22 07:38 Pulse Ox 98 05/06/22 07:38 O2 Del Method 05/06/22 07:38 BMI result Body Mass Index 62.8 Const: General: no acute distress Orientation/consciousness: patient oriented x3 Resp: Auscultation: diminished lung sounds Cardio: Rate: regular rate GI: Palpation (GI): Soft to palpation Neuro: General: patient oriented x3 and moves all extremities Objective Data Labs 05/06/22 06:56 05/06/22 06:56 Labs: Laboratory Results - last 24 hr 05/04/22 05/05/22 05/05/22 14:56 15:52 19:25 WBC RBC Hgb Hct MCV MCH MCHC RDW Plt Count MPV Absolute Nucleated RBC Nucleated RBC % (auto) Sodium Potassium Chloride Carbon Dioxide Anion Gap BUN Creatinine Estim Creat Clear Calc Estimated GFR POC Glucose 194 H 215 H Fasting Glucose Calcium Stl C. cayetanensis PCR Not Detected Stool Rotavirus A PCR Not Detected Stl Adenov F 40/41 PCR Not Detected Stool Astrovirus (PCR) Not Detected Stool Campylobacter PCR Not Detected Stool Cryptosporidium PCR Not Detected Stl Sh Tox Pr E STEC PCR Not Detected Stool E coli O157 PCR Not applicable Stl Enterotoxigenic E PCR Not Detected Stool EPEC (PCR) Not Detected Stool EAEC (PCR) Not Detected Stl E. histolytica PCR Not Detected Stool Giardia Lamblia PCR Not Detected Stl P. shigelloides PCR Not Detected Stool Salmonella PCR Not Detected Stool Sapovirus (PCR) Not Detected Stl Shigella/EIEC PCR Not Detected St Y.enterocolitica PCR Not Detected Stool Vibrio (PCR) Not Detected Stl Vibrio cholerae PCR Not Detected Stl Norovirus GI/GII PCR Not Detected 05/06/22 05/06/22 05/06/22 06:56 06:56 07:28 WBC 9.4 RBC 3.85 L Hgb 11.7 L Hct 36.3 L MCV 94.3 MCH 30.4 MCHC 32.2 RDW 15.1 Plt Count 153 L MPV 11.4 Absolute Nucleated RBC 0.000 Nucleated RBC % (auto) 0.0 Sodium 140 Potassium 4.5 Chloride 106 Carbon Dioxide 22 Anion Gap 17 BUN 37 H Creatinine 1.46 H Estim Creat Clear Calc 78.5 Estimated GFR 48 POC Glucose 143 H Fasting Glucose 157 H Calcium 8.2 L Stl C. cayetanensis PCR Stool Rotavirus A PCR Stl Adenov F 40/41 PCR Stool Astrovirus (PCR) Stool Campylobacter PCR Stool Cryptosporidium PCR Stl Sh Tox Pr E STEC PCR Stool E coli O157 PCR Stl Enterotoxigenic E PCR Stool EPEC (PCR) Stool EAEC (PCR) Stl E. histolytica PCR Stool Giardia Lamblia PCR Stl P. shigelloides PCR Stool Salmonella PCR Stool Sapovirus (PCR) Stl Shigella/EIEC PCR St Y.enterocolitica PCR Stool Vibrio (PCR) Stl Vibrio cholerae PCR Stl Norovirus GI/GII PCR Microbiology Microbiology Results: Microbiology 05/03/22 04:14 Urine clean catch - Urine scott top Urine Culture - Final Escherichia coli 05/03/22 03:13 Blood - Venous Blood Culture - Preliminary No growth after 48 hours. 05/03/22 03:13 Blood - Venous Blood Culture - Preliminary No growth after 48 hours. Procedures Date of Service Date of Service: 05/06/22 Assessment & Plan Assessment and plan (1) MARGOTH (acute kidney injury): Status: Acute Assessment and Plan: Mr. Geovanni Jimenez is a 71-year-old gentleman with past medical history of chronic afib, DM, CKD III (BL Cr 1.3-1.5mg/dL), HTN, gout, who presented with margoth and severe hyperakelmia, was treated in ICU with kayexlyate and sodium bicarbonate, potassium improved and patient downgraded to medical floor. GFR improved gradually with IVF support. MARGOTH on CKD III with severe hyperkalemia and metabolic acidosis Improved with Bicarb rich isotonic fluids GFR back to baseline Plan: - hold any Bart / ARBs / Aldactone - no current need for PO bicarb tablets - will increase amlodipine to 10mg for HTN - monitor labs daily Time Spent With Patient Time: Total time managing care of this patient today ____ minutes. Progress Note: Quality Stroke Does the patient have a stroke diagnosis?: No
[2022-05-06 11:29] LABS: Glucose, Whole Blood 167 mg/dL (60-115)
--- NOTE | 2022-05-06 11:35 | P.PNIM_ITS ---
Subjective Subjective Date of Service: 05/06/22 Interval History: cc: hyperkalemia interval history: diarrhea Physical Exam Vital Signs: Vital Signs: Last Vital Signs Temp 97.7 F 05/06/22 07:38 Pulse 59 05/06/22 07:38 Resp 20 05/06/22 07:38 BP 151/72 H 05/06/22 07:38 Pulse Ox 98 05/06/22 07:38 O2 Del Method 05/06/22 07:38 BMI result Body Mass Index 62.8 Const: General: no acute distress Orientation/consciousness: patient oriented x3 Resp: Auscultation: diminished lung sounds Cardio: Rate: regular rate GI: Palpation (GI): Soft to palpation Neuro: General: patient oriented x3 and moves all extremities Objective Data Active Medications Amlodipine Besylate (Amlodipine Besylate 10 Mg Tablet) 10 mg PO DAILY@1200 [facility]; Protocol Apixaban (Apixaban 5 Mg Tablet) 5 mg PO BID [facility] Last Admin: 05/05/22 19:51 Dose: 5 mg Documented By: HERIBERTO Ascorbic Acid (Ascorbic Acid 500 Mg Tablet) 1,000 mg PO BID [facility] Last Admin: 05/05/22 19:51 Dose: 1,000 mg Documented By: HERIBERTO Atorvastatin Calcium (Atorvastatin Calcium 80 Mg Tablet) 80 mg PO DAILY [facility] Last Admin: 05/05/22 07:44 Dose: 80 mg Documented By: SHO Cyanocobalamin (Cyanocobalamin (Vitamin B-12) 100 Mcg Tablet) 200 mcg PO DAILY [facility] Last Admin: 05/05/22 07:44 Dose: 200 mcg Documented By: SHO Insulin Glargine (Insulin Glargine,Hum.Rec.Anlog 100 Unit/Ml 10 Ml Vial) 38 unit SUBCUT DAILY@1700 [facility] Last Admin: 05/05/22 17:14 Dose: 38 unit Documented By: SHO Insulin Human Lispro (Insulin Lispro 100 Unit/Ml 3 Ml Vial) 0 unit SUBCUT QIDACHS [facility]; Protocol Last Admin: 05/06/22 08:34 Dose: Not Given Documented By: EDUARD Non-Admin Reason: No Insulin Coverage Loperamide HCl (Loperamide Hcl 2 Mg Capsule) 2 mg PO Q4H PRN PRN Reason: diarrhea Nystatin (Nystatin Powder 15 Gm Bottle) 1 appl TOPICAL BID [facility]; Protocol Last Admin: 05/05/22 19:52 Dose: 1 appl Documented By: HERIBERTO Pharmacy Consult (Consult Rx Perform Med Rec) 1 each MISCELLANE ONCE PRN PRN Reason: Consult order Tamsulosin HCl (Tamsulosin Hcl 0.4 Mg Capsule) 0.4 mg PO BEDTIME [facility] Last Admin: 05/05/22 19:51 Dose: 0.4 mg Documented By: HERIBERTO Vitamin D (Cholecalciferol (Vitamin D3) 25 Mcg Tablet) 50 mcg PO DAILY [facility] Last Admin: 05/05/22 07:44 Dose: 50 mcg Documented By: CTORRZ Labs 05/06/22 06:56 05/06/22 06:56 Labs: Laboratory Results - last 24 hr 05/04/22 05/05/22 05/05/22 14:56 15:52 19:25 MCV MCH MCHC RDW Plt Count MPV Absolute Nucleated RBC Nucleated RBC % (auto) Anion Gap Estim Creat Clear Calc Estimated GFR POC Glucose 194 H 215 H Fasting Glucose Calcium Stl C. cayetanensis PCR Not Detected Stool Rotavirus A PCR Not Detected Stl Adenov F 40/41 PCR Not Detected Stool Astrovirus (PCR) Not Detected Stool Campylobacter PCR Not Detected Stool Cryptosporidium PCR Not Detected Stl Sh Tox Pr E STEC PCR Not Detected Stool E coli O157 PCR Not applicable Stl Enterotoxigenic E PCR Not Detected Stool EPEC (PCR) Not Detected Stool EAEC (PCR) Not Detected Stl E. histolytica PCR Not Detected Stool Giardia Lamblia PCR Not Detected Stl P. shigelloides PCR Not Detected Stool Salmonella PCR Not Detected Stool Sapovirus (PCR) Not Detected Stl Shigella/EIEC PCR Not Detected St Y.enterocolitica PCR Not Detected Stool Vibrio (PCR) Not Detected Stl Vibrio cholerae PCR Not Detected Stl Norovirus GI/GII PCR Not Detected 05/06/22 05/06/22 05/06/22 06:56 06:56 07:28 MCV 94.3 MCH 30.4 MCHC 32.2 RDW 15.1 Plt Count 153 L MPV 11.4 Absolute Nucleated RBC 0.000 Nucleated RBC % (auto) 0.0 Anion Gap 17 Estim Creat Clear Calc 78.5 Estimated GFR 48 POC Glucose 143 H Fasting Glucose 157 H Calcium 8.2 L Stl C. cayetanensis PCR Stool Rotavirus A PCR Stl Adenov F 40/41 PCR Stool Astrovirus (PCR) Stool Campylobacter PCR Stool Cryptosporidium PCR Stl Sh Tox Pr E STEC PCR Stool E coli O157 PCR Stl Enterotoxigenic E PCR Stool EPEC (PCR) Stool EAEC (PCR) Stl E. histolytica PCR Stool Giardia Lamblia PCR Stl P. shigelloides PCR Stool Salmonella PCR Stool Sapovirus (PCR) Stl Shigella/EIEC PCR St Y.enterocolitica PCR Stool Vibrio (PCR) Stl Vibrio cholerae PCR Stl Norovirus GI/GII PCR 05/06/22 11:25 MCV MCH MCHC RDW Plt Count MPV Absolute Nucleated RBC Nucleated RBC % (auto) Anion Gap Estim Creat Clear Calc Estimated GFR POC Glucose 167 H Fasting Glucose Calcium Stl C. cayetanensis PCR Stool Rotavirus A PCR Stl Adenov F 40/41 PCR Stool Astrovirus (PCR) Stool Campylobacter PCR Stool Cryptosporidium PCR Stl Sh Tox Pr E STEC PCR Stool E coli O157 PCR Stl Enterotoxigenic E PCR Stool EPEC (PCR) Stool EAEC (PCR) Stl E. histolytica PCR Stool Giardia Lamblia PCR Stl P. shigelloides PCR Stool Salmonella PCR Stool Sapovirus (PCR) Stl Shigella/EIEC PCR St Y.enterocolitica PCR Stool Vibrio (PCR) Stl Vibrio cholerae PCR Stl Norovirus GI/GII PCR Microbiology Microbiology Results: Microbiology 05/03/22 04:14 Urine Culture - Final Urine clean catch - Urine scott top Escherichia coli Assessment and Plan (1) Diabetes: Status: Acute Plan 71M PMH chronic afib, DM, CKD III, HTN, gout, sent in for margoth and severe hyperakelmia, was treated in ICU with kayexlyate and sodium bicarbonate, potassium improved and patient downgraded to medical floor. 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 Quality Stroke Does the patient have a stroke diagnosis?: No VTE Prior VTE?: No VTE Risk Level:: Medical - moderate - high VTE Device Contraindication: N/A - Device Ordered VTE Drug Contraindication: N/A - Med Ordered
[2022-05-06] MEDS: Insulin Lispro 100 UNIT/ML 3 ML VIAL SUBCUT ×3 (11:41→20:31)
[2022-05-06] MEDS: amLODIPine Besylate 10 MG TABLET PO (11:42)
[2022-05-06] MEDS: Cholecalciferol (Vitamin D3) 25 MCG TABLET 50 MCG PO (11:42)
[2022-05-06] MEDS: Cyanocobalamin (Vitamin B-12) 100 MCG TABLET 200 MCG PO (11:42)
[2022-05-06] MEDS: Atorvastatin Calcium 80 MG TABLET PO (11:42)
[2022-05-06] MEDS: Apixaban 5 MG TABLET PO ×2 (11:42→20:31)
[2022-05-06] MEDS: Ascorbic Acid 500 MG TABLET 1000 MG PO ×2 (11:43→20:31)
[2022-05-06] MEDS: Nystatin Powder 15 GM BOTTLE 1 APPL TOPICAL ×2 (11:43→20:32)
[2022-05-06 12:00] VITALS: BP 154/74; PULSE 69; RESP 20; TEMP 37; O2SAT 99
[2022-05-06 16:00] VITALS: BP 148/65; PULSE 65; RESP 18; TEMP 37; O2SAT 99
[2022-05-06 16:17] LABS: Glucose, Whole Blood 192 mg/dL (60-115)
[2022-05-06] MEDS: Insulin Glargine,Hum.rec.anlog 100 UNIT/ML 10 ML VIAL 38 UNIT SUBCUT (16:27)
--- NOTE | 2022-05-06 18:29 | PM.EVENT ---
Event Note Date of Service: 05/06/22 Event Note: GI-Consult received, chart reviewed. I will see patient over the weekend for a full consult. Regarding the reported diarrhea, I have added a lactose-free restriction to his diet and will order labs for celiac disease. His last colonoscopy appears to have been back in 2012 so we may need to consider repeating that at some point depending on his clinical course. If diarrhea persists of any significant severity we could always treat with an empiric course of po Vancomycin due to the +Cdiff PCR, even though the toxin is negative. I would continue Imodium as needed for now as well. Thanks Time Spent With Patient Time: Total time managing care of this patient today ____ minutes.
[2022-05-06 19:15] VITALS: BP 136/60; PULSE 60; RESP 18; TEMP 36.3; O2SAT 97
[2022-05-06 19:27] LABS: Glucose, Whole Blood 187 mg/dL (60-115)
[2022-05-06] MEDS: Loperamide HCl 2 MG CAPSULE PO (20:31)
[2022-05-06] MEDS: Tamsulosin HCL 0.4 MG CAPSULE PO (20:31)
[2022-05-07] VITALS (7 sets, daily range): BP systolic 135–151; BP diastolic 55–76; PULSE 63–76; RESP 15–20; TEMP 36.1–36.9; O2SAT 97–99; BMI 63.1
[2022-05-07 07:17] LABS: PLT CLUMP 1
[2022-05-07 07:19] LABS: Hematocrit 37.2 % (42.0-52.0); Hemoglobin 11.8 g/dl (14.0-18.0); Mean Corpuscular HGB Conc 31.7 g/dl (31.0-36.0); Mean Corpuscular Volume 94.7 fL (80.0-98.0); Mean Platelet Volume 11.3 fL (9.4-12.4); Platelet Count 145 X10*3/uL (160-400); Red Blood Count 3.93 X10*6/uL (4.60-5.80); Red Cell Distribution Width 14.7 % (11.0-16.0); White Blood Count 9.1 X10*3/uL (4.8-10.8)
[2022-05-07 07:50] LABS: Anion Gap 15 (12-20); Blood Urea Nitrogen 35 mg/dL (9-16); Calcium 8.4 mg/dL (8.4-10.2); Carbon Dioxide 25 mmol/L (22-29); Chloride 105 mmol/L (96-108); Creatinine Clr Calc Pharmacy 76.1; Estimated Glomerular Filt Rate 46; Glucose Fasting 161 mg/dL (60-99); Potassium 4.7 mmol/L (3.3-5.1); Sodium 140 mmol/L (135-145)
[2022-05-07 08:11] LABS: Glucose, Whole Blood 184 mg/dL (60-115)
[2022-05-07] MEDS: Loperamide HCl 2 MG CAPSULE PO ×2 (09:26→15:32)
[2022-05-07] MEDS: Insulin Lispro 100 UNIT/ML 3 ML VIAL SUBCUT ×3 (09:26→22:48)
[2022-05-07] MEDS: vancomycin HCL 125 MG CAPSULE PO ×3 (09:27→22:48)
[2022-05-07] MEDS: Apixaban 5 MG TABLET PO (09:27)
[2022-05-07] MEDS: Cholecalciferol (Vitamin D3) 25 MCG TABLET 50 MCG PO (09:27)
[2022-05-07] MEDS: Atorvastatin Calcium 80 MG TABLET PO (09:27)
[2022-05-07] MEDS: Ascorbic Acid 500 MG TABLET 1000 MG PO ×2 (09:27→22:48)
[2022-05-07] MEDS: Cyanocobalamin (Vitamin B-12) 100 MCG TABLET 200 MCG PO (09:27)
--- NOTE | 2022-05-07 09:52 | P.PNIM_ITS ---
Subjective Subjective Date of Service: 05/07/22 Interval History: cc: hyperkalemia interval history: diarrhea Physical Exam Vital Signs: Vital Signs: Last Vital Signs Temp 98.0 F 05/07/22 08:00 Pulse 70 05/07/22 08:00 Resp 20 05/07/22 08:00 BP 139/76 05/07/22 08:00 Pulse Ox 99 05/07/22 08:00 O2 Del Method 05/07/22 04:00 BMI result Body Mass Index 63.1 Const: General: no acute distress Orientation/consciousness: patient oriented x3 Resp: Auscultation: diminished lung sounds Cardio: Rate: regular rate GI: Palpation (GI): Soft to palpation Neuro: General: patient oriented x3 and moves all extremities Objective Data Active Medications Amlodipine Besylate (Amlodipine Besylate 10 Mg Tablet) 10 mg PO DAILY@1200 [facility]; Protocol Last Admin: 05/06/22 11:42 Dose: 10 mg Documented By: EDUARD Apixaban (Apixaban 5 Mg Tablet) 5 mg PO BID [facility] Last Admin: 05/07/22 09:27 Dose: 5 mg Documented By: ANA LUISA Ascorbic Acid (Ascorbic Acid 500 Mg Tablet) 1,000 mg PO BID [facility] Last Admin: 05/07/22 09:27 Dose: 1,000 mg Documented By: ANA LUISA Atorvastatin Calcium (Atorvastatin Calcium 80 Mg Tablet) 80 mg PO DAILY [facility] Last Admin: 05/07/22 09:27 Dose: 80 mg Documented By: ANA LUISA Cyanocobalamin (Cyanocobalamin (Vitamin B-12) 100 Mcg Tablet) 200 mcg PO DAILY [facility] Last Admin: 05/07/22 09:27 Dose: 200 mcg Documented By: ANA LUISA Insulin Glargine (Insulin Glargine,Hum.Rec.Anlog 100 Unit/Ml 10 Ml Vial) 38 unit SUBCUT DAILY@1700 [facility] Last Admin: 05/06/22 16:27 Dose: 38 unit Documented By: EDUARD Insulin Human Lispro (Insulin Lispro 100 Unit/Ml 3 Ml Vial) 0 unit SUBCUT QIDACHS [facility]; Protocol Last Admin: 05/07/22 09:26 Dose: 2 unit Documented By: ANA LUISA Loperamide HCl (Loperamide Hcl 2 Mg Capsule) 2 mg PO Q4H PRN PRN Reason: diarrhea Last Admin: 05/07/22 09:26 Dose: 2 mg Documented By: ANA LUISA Nystatin (Nystatin Powder 15 Gm Bottle) 1 appl TOPICAL BID [facility]; Protocol Last Admin: 05/06/22 20:32 Dose: 1 appl Documented By: RADHA Pharmacy Consult (Consult Rx Perform Med Rec) 1 each MISCELLANE ONCE PRN PRN Reason: Consult order Tamsulosin HCl (Tamsulosin Hcl 0.4 Mg Capsule) 0.4 mg PO BEDTIME [facility] Last Admin: 05/06/22 20:31 Dose: 0.4 mg Documented By: RADHA Vancomycin HCl (Vancomycin Hcl 125 Mg Capsule) 125 mg PO Q6H [facility] Last Admin: 05/07/22 09:27 Dose: 125 mg Documented By: ANA LUISA Vitamin D (Cholecalciferol (Vitamin D3) 25 Mcg Tablet) 50 mcg PO DAILY [facility] Last Admin: 05/07/22 09:27 Dose: 50 mcg Documented By: ANA LUISA Labs 05/07/22 06:53 05/07/22 06:53 Labs: Laboratory Results - last 24 hr 05/06/22 05/06/22 05/06/22 11:25 16:09 19:21 MCV MCH MCHC RDW Plt Count MPV Absolute Nucleated RBC Nucleated RBC % (auto) Anion Gap Estim Creat Clear Calc Estimated GFR POC Glucose 167 H 192 H 187 H Fasting Glucose Calcium 05/07/22 05/07/22 05/07/22 06:53 06:53 08:08 MCV 94.7 MCH 30.0 MCHC 31.7 RDW 14.7 Plt Count 145 L MPV 11.3 Absolute Nucleated RBC 0.000 Nucleated RBC % (auto) 0.0 Anion Gap 15 Estim Creat Clear Calc 76.1 Estimated GFR 46 POC Glucose 184 H Fasting Glucose 161 H Calcium 8.4 Assessment and Plan (1) Diabetes: Status: Acute Plan 71M PMH chronic afib, DM, CKD III, HTN, gout, sent in for margoth and severe hyperakelmia, was treated in ICU with kayexlyate and sodium bicarbonate, potassium improved and patient downgraded to medical floor. MARGOTH on CKD III with severe hyperkalemia and metabolic acidosis resolved bacturia ID appreciated, no clinical UTI DM inuslin morbid obesity wegiht loss diarrhea stool pcr negative cdif colonizer only, but will empirically treat with vanco po imodium gi appreciated chronic afib eliquis htn amlodipine hold lisinopril hold aldactone reason for continued hospitalization:diarrhea Time Spent With Patient Time: Total time managing care of this patient today ____ minutes. Quality Stroke Does the patient have a stroke diagnosis?: No VTE Prior VTE?: No VTE Risk Level:: Medical - moderate - high VTE Device Contraindication: N/A - Device Ordered VTE Drug Contraindication: N/A - Med Ordered
[2022-05-07 11:35] LABS: Glucose, Whole Blood 212 mg/dL (60-115)
--- NOTE | 2022-05-07 12:34 | PM.PNNEP ---
Subjective Subjective Date of Service: 05/07/22 Interval history: no acute events GFR stable diarrhea on PO vanco Physical Exam Vital Signs: Vital Signs: Last Vital Signs Temp 98.0 F 05/07/22 08:00 Pulse 70 05/07/22 08:00 Resp 20 05/07/22 08:00 BP 139/76 05/07/22 08:00 Pulse Ox 99 05/07/22 08:00 O2 Del Method 05/07/22 04:00 BMI result Body Mass Index 63.1 Const: General: no acute distress Orientation/consciousness: patient oriented x3 Resp: Auscultation: diminished lung sounds Cardio: Rate: regular rate GI: Palpation (GI): Soft to palpation Neuro: General: patient oriented x3 and moves all extremities Objective Data Labs 05/07/22 06:53 05/07/22 06:53 Labs: Laboratory Results - last 24 hr 05/06/22 05/06/22 05/07/22 16:09 19:21 06:53 WBC 9.1 RBC 3.93 L Hgb 11.8 L Hct 37.2 L MCV 94.7 MCH 30.0 MCHC 31.7 RDW 14.7 Plt Count 145 L MPV 11.3 Absolute Nucleated RBC 0.000 Nucleated RBC % (auto) 0.0 Sodium Potassium Chloride Carbon Dioxide Anion Gap BUN Creatinine Estim Creat Clear Calc Estimated GFR POC Glucose 192 H 187 H Fasting Glucose Calcium 05/07/22 05/07/22 05/07/22 06:53 08:08 11:31 WBC RBC Hgb Hct MCV MCH MCHC RDW Plt Count MPV Absolute Nucleated RBC Nucleated RBC % (auto) Sodium 140 Potassium 4.7 Chloride 105 Carbon Dioxide 25 Anion Gap 15 BUN 35 H Creatinine 1.51 H Estim Creat Clear Calc 76.1 Estimated GFR 46 POC Glucose 184 H 212 H Fasting Glucose 161 H Calcium 8.4 Microbiology Microbiology Results: Microbiology 05/03/22 04:14 Urine clean catch - Urine scott top Urine Culture - Final Escherichia coli 05/03/22 03:13 Blood - Venous Blood Culture - Preliminary No growth after 48 hours. 05/03/22 03:13 Blood - Venous Blood Culture - Preliminary No growth after 48 hours. Procedures Date of Service Date of Service: 05/07/22 Assessment & Plan Assessment and plan (1) MARGOTH (acute kidney injury): Status: Acute Assessment and Plan: Mr. Geovanni Jimenez is a 71-year-old gentleman with past medical history of chronic afib, DM, CKD III (BL Cr 1.3-1.5mg/dL), HTN, gout, who presented with margoth and severe hyperakelmia, was treated in ICU with kayexlyate and sodium bicarbonate, potassium improved and patient downgraded to medical floor. GFR improved gradually with IVF support. MARGOTH on CKD III with severe hyperkalemia and metabolic acidosis Improved with Bicarb rich isotonic fluids GFR back to baseline Plan: - hold any Bart / ARBs / Aldactone. He is normotensive and has HyperK risk. - no current need for PO bicarb tablets - c/w amlodipine to 10mg for HTN - monitor labs daily Time Spent With Patient Time: Total time managing care of this patient today ____ minutes. Progress Note: Quality Stroke Does the patient have a stroke diagnosis?: No
[2022-05-07] MEDS: Nystatin Powder 15 GM BOTTLE 1 APPL TOPICAL ×2 (12:59→22:48)
[2022-05-07] MEDS: amLODIPine Besylate 10 MG TABLET PO (13:00)
[2022-05-07 16:08] LABS: Glucose, Whole Blood 125 mg/dL (60-115)
[2022-05-07] MEDS: Insulin Glargine,Hum.rec.anlog 100 UNIT/ML 10 ML VIAL 38 UNIT SUBCUT (17:23)
--- NOTE | 2022-05-07 18:10 | PM.EVENT ---
Event Note Date of Service: 05/07/22 Event Note: GI Consult-Full note dictated Imp: Diarrhea since late 03/2022. He denies any previous history of chronic GI complaints. He denies any antibiotic use prior to the onset of his diarrhea. This may reflect a C.diff associated diarrhea given no other explanation at this time. Rec: Agree with the po [place]. Lactose-free diet. Check labs for celiac disease. Check stool for WBC's and Calprotectin as well. Observe. If things improve will plan for an outpatient colonoscopy. If diarrhea persists we could do the colonoscopy as an inpatient but he would need to be off his Eliquis for 3 days. Therefore, it might be reasonable to hold it as of now just in case and we could do it on Monday if need be. D/W patient and he is comfortable with this plan. Thanks Time Spent With Patient Time: Total time managing care of this patient today ____ minutes.
[2022-05-07 20:48] LABS: Glucose, Whole Blood 170 mg/dL (60-115)
[2022-05-07] MEDS: Tamsulosin HCL 0.4 MG CAPSULE PO (22:48)
--- NOTE | 2022-05-08 | ECG_ITS ---
Test Reason : cp Blood Pressure : / mmHG Vent. Rate : 068 BPM Atrial Rate : 000 BPM P-R Int : 000 ms QRS Dur : 162 ms QT Int : 426 ms P-R-T Axes : 000 -78 012 degrees QTc Int : 452 ms Atrial fibrillation Left axis deviation Right bundle branch block Anterior infarct , age undetermined Abnormal ECG When compared with ECG of 02-MAY-2022 19:19, Anterior infarct is now Present QT has lengthened Referred By: Dedrick Leos Electronically Signed By:LOURDES OLEARY MD
--- NOTE | 2022-05-08 01:31 | CONS_ITS ---
DATE OF SERVICE: 05/07/2022 REASON FOR CONSULTATION: Diarrhea. HISTORY OF PRESENT ILLNESS: This has been obtained from the patient and the medical record. The patient is a 71-year-old male, admitted to the hospital May 03 with hyperkalemia and renal failure. The patient does have underlying history of renal insufficiency with associated medical problems of diabetes and hypertension. The patient relates that he had been having diarrhea at home since around late March. Prior to that, he reports that his bowel movements have been normal without any chronic GI complaints. He did have a negative colonoscopy in 2012, other than hyperplastic polyp with Dr. Lange. He has not had a colonoscopy since then. However, up until March, he was not having any GI problems. He does describe a previous history of urinary tract infections and kidney stones. He did receive antibiotics, but reports that none of that was close in proximity to the onset of his diarrhea in March. He did not have any ill contacts nor travel. Since the diarrhea started in March, he describes having at least four loose bowel movements everyday at home. He had occasional nausea, but no vomiting. He reports that he was eating fairly normal. He did have some abdominal cramps, but no other abdominal pain. He never noticed any signs of bleeding. He went for some routine lab work on the day of admission. At the [facility], he was found to have hyperkalemia and was referred to the hospital here. On admission here, he was admitted with potassium of 6.7, BUN 84, and creatinine of 2.99. Since admission, he has been followed by Nephrology and his laboratories have improved with BUN of 35 and creatinine 1.5 today. His potassium is 4.7 today. Here in the hospital, he has continued to have the same type of diarrhea he was having at home with upwards of 4 times per day. He describes that this is quite watery. He reports that he is eating fairly well here and has not had any nausea, vomiting, significant abdominal pain, nor any sign of bleeding. He has been afebrile here. A stool assessment from May 04 was positive for C diff gene, but negative for A and B toxin. Due to the persistence of his diarrhea, he was started on oral vancomycin this morning. Other stool specimens were negative, although a urine culture did show E coli. The patient denies a known family history of inflammatory bowel disease nor GI malignancy. MEDICATIONS: His present medications include oral vancomycin started today 125 mg every 6 hours. Other current medications include amlodipine, Eliquis, vitamin C, atorvastatin, vitamin D, vitamin B12, insulin, imodium p.r.n., nystatin, and Flomax. PAST MEDICAL HISTORY: He describes eye surgery for melanoma over 10 years ago. He has medical problems including kidney stones, insulin dependent diabetes mellitus, hypertension, hyperlipidemia, chronic lower extremity edema, renal insufficiency. He denies any history of IL, stroke, lung disease. SOCIAL HISTORY: He does not smoke. He does not use any alcohol. He does describe that he had been smoker and drinker up until about 30 years ago. He is . He is retired. FAMILY HISTORY: Noncontributory. REVIEW OF SYSTEMS: CONSTITUTIONAL: He has been feeling somewhat poorly and fatigued at home. CARDIAC: No chest pain. PULMONARY: No cough. No hemoptysis. GI: As above. PHYSICAL EXAMINATION: GENERAL: The patient is alert, comfortable appearing pleasant male. SKIN: Warm and dry. HEENT: Anicteric sclerae. NECK: Supple without lymphadenopathy. CARDIAC: Normal S1 and S2. ABDOMEN: Soft. Normal bowel sounds. Nondistended and nontender. There is no palpable mass. LABORATORY DATA: As above. White blood cell count 9.1, hemoglobin 11.8, MCV 95, platelets 145,000. Chemistries and renal functions as above. A lipid profile on May [address] scan of the abdomen on admission did not reveal any GI tract abnormalities. No any other acute abnormalities. IMPRESSION: Given the patient's clinical history, it does appear that his worsening renal function was in relation to his ongoing diarrhea at home. The etiology of the diarrhea may very well be related to a chronic Clostridium difficile infection, given the positive stool for the Clostridium difficile gene and ongoing symptoms. He does not appear to have signs of colitis at the present time, but nonetheless his symptoms of the diarrhea do persist. As such, without any other etiology, I would agree with the use of the vancomycin orally for the next 7 to 10 days. I did review with the patient that if this helps improve things, then we can hold off any further workup here in the hospital. We did review that he is due for a screening colonoscopy this year anyway as his last exam was 10 years ago. We did review that if the diarrhea persists here in the hospital, we could then plan to do an inpatient colonoscopy if needed. If that is the case, we would need to have to hold his Eliquis for 2 to 3 days and make sure his renal function is stable to tolerate the bowel prep. However, if things do improve on the vancomycin we could hold off on the colonoscopy and schedule him relatively electively as an outpatient. In the meantime, I will continue his diet but add a lactose free restriction. He should minimize caffeine as well. Of note, I did order labs for celiac disease as well, given the new onset of the diarrhea and the associated diabetes. I shall follow the patient with you here in the hospital. I did review all this with the patient in detail and he is comfortable with the plan. We did review that if the colonoscopy is needed as an inpatient, then this will be done with the anesthesiologist. Full consent has been obtained for this, including risks of bleeding and perforation. MD WILLIAMS Cardoza/LORI / [id number] MTDTammie
[2022-05-08] MEDS: vancomycin HCL 125 MG CAPSULE PO ×4 (02:24→21:13)
[2022-05-08 04:00] VITALS: BP 141/64; PULSE 67; RESP 14; O2SAT 98
[2022-05-08] MEDS: Acetaminophen 325 MG TABLET 650 MG PO ×2 (05:18→22:36)
[2022-05-08 06:22] LABS: Hematocrit 35.5 % (42.0-52.0); Hemoglobin 11.4 g/dl (14.0-18.0); Mean Corpuscular HGB Conc 32.1 g/dl (31.0-36.0); Mean Corpuscular Hemoglobin 30.6 pg (27.0-33.0); Mean Corpuscular Volume 95.2 fL (80.0-98.0); Mean Platelet Volume 11.5 fL (9.4-12.4); Platelet Count 144 X10*3/uL (160-400); Red Blood Count 3.73 X10*6/uL (4.60-5.80); Red Cell Distribution Width 14.7 % (11.0-16.0); White Blood Count 8.8 X10*3/uL (4.8-10.8)
[2022-05-08 07:14] LABS: Anion Gap 17 (12-20); Blood Urea Nitrogen 35 mg/dL (9-16); Calcium 8.5 mg/dL (8.4-10.2); Carbon Dioxide 22 mmol/L (22-29); Chloride 105 mmol/L (96-108); Creatinine Clr Calc Pharmacy 79.3; Estimated Glomerular Filt Rate 48; Glucose Fasting 124 mg/dL (60-99); Potassium 4.6 mmol/L (3.3-5.1); Sodium 139 mmol/L (135-145)
[2022-05-08 07:34] LABS: Glucose, Whole Blood 146 mg/dL (60-115)
[2022-05-08 08:00] VITALS: BP 148/68; PULSE 69; RESP 19; TEMP 36.9; O2SAT 98
[2022-05-08] MEDS: Cholecalciferol (Vitamin D3) 25 MCG TABLET 50 MCG PO (09:09)
[2022-05-08] MEDS: Ascorbic Acid 500 MG TABLET 1000 MG PO ×2 (09:09→21:13)
[2022-05-08] MEDS: Atorvastatin Calcium 80 MG TABLET PO (09:09)
[2022-05-08] MEDS: Cyanocobalamin (Vitamin B-12) 100 MCG TABLET 200 MCG PO (09:10)
[2022-05-08] MEDS: Nystatin Powder 15 GM BOTTLE 1 APPL TOPICAL ×2 (09:13→21:17)
--- NOTE | 2022-05-08 09:36 | PM.PNNEP ---
Subjective Subjective Date of Service: 05/08/22 Interval history: no acute events GFR stable diarrhea on PO vanco Physical Exam Vital Signs: Vital Signs: Last Vital Signs Temp 98.4 F 05/08/22 08:00 Pulse 69 05/08/22 08:00 Resp 19 05/08/22 08:00 BP 148/68 H 05/08/22 08:00 Pulse Ox 98 05/08/22 08:00 O2 Del Method 05/08/22 08:00 BMI result Body Mass Index 63.1 Const: General: no acute distress Orientation/consciousness: patient oriented x3 Resp: Auscultation: diminished lung sounds Cardio: Rate: regular rate GI: Palpation (GI): Soft to palpation Neuro: General: patient oriented x3 and moves all extremities Objective Data Labs 05/08/22 05:52 05/08/22 05:52 Labs: Laboratory Results - last 24 hr 05/07/22 05/07/22 05/07/22 11:31 16:04 20:44 WBC RBC Hgb Hct MCV MCH MCHC RDW Plt Count MPV Absolute Nucleated RBC Nucleated RBC % (auto) Sodium Potassium Chloride Carbon Dioxide Anion Gap BUN Creatinine Estim Creat Clear Calc Estimated GFR POC Glucose 212 H 125 H 170 H Fasting Glucose Calcium 05/08/22 05/08/22 05/08/22 05:52 05:52 07:30 WBC 8.8 RBC 3.73 L Hgb 11.4 L Hct 35.5 L MCV 95.2 MCH 30.6 MCHC 32.1 RDW 14.7 Plt Count 144 L MPV 11.5 Absolute Nucleated RBC 0.000 Nucleated RBC % (auto) 0.0 Sodium 139 Potassium 4.6 Chloride 105 Carbon Dioxide 22 Anion Gap 17 BUN 35 H Creatinine 1.45 H Estim Creat Clear Calc 79.3 Estimated GFR 48 POC Glucose 146 H Fasting Glucose 124 H Calcium 8.5 Microbiology Microbiology Results: Microbiology 05/03/22 03:13 Blood - Venous Blood Culture - Final No growth after 5 days. 05/03/22 03:13 Blood - Venous Blood Culture - Final No growth after 5 days. 05/03/22 04:14 Urine clean catch - Urine scott top Urine Culture - Final Escherichia coli Procedures Date of Service Date of Service: 05/08/22 Assessment & Plan Assessment and plan (1) MARGOTH (acute kidney injury): Status: Acute Assessment and Plan: Mr. Geovanni Jimenez is a 71-year-old gentleman with past medical history of chronic afib, DM, CKD III (BL Cr 1.3-1.5mg/dL), HTN, gout, who presented with margoth and severe hyperakelmia, was treated in ICU with kayexlyate and sodium bicarbonate, potassium improved and patient downgraded to medical floor. GFR improved gradually with IVF support. MARGOTH on CKD III with severe hyperkalemia and metabolic acidosis Improved with Bicarb rich isotonic fluids GFR back to baseline Plan: - hold any Bart / ARBs / Aldactone. He is normotensive and has HyperK risk. - no current need for PO bicarb tablets - c/w amlodipine to 10mg for HTN - monitor labs daily Time Spent With Patient Time: Total time managing care of this patient today ____ minutes. Progress Note: Quality Stroke Does the patient have a stroke diagnosis?: No
--- NOTE | 2022-05-08 10:02 | HO.PM.IMPN ---
Subjective Subjective Date of Service: 05/08/22 Interval History: cc: hyperkalemia interval history: diarrhea - slowing but still not formed Physical Exam Vital Signs: Vital Signs: Last Vital Signs Temp 98.4 F 05/08/22 08:00 Pulse 69 05/08/22 08:00 Resp 19 05/08/22 08:00 BP 148/68 H 05/08/22 08:00 Pulse Ox 98 05/08/22 08:00 O2 Del Method 05/08/22 08:00 BMI result Body Mass Index 63.1 Const: General: no acute distress Orientation/consciousness: patient oriented x3 Resp: Auscultation: diminished lung sounds Cardio: Rate: regular rate GI: Palpation (GI): Soft to palpation Neuro: General: patient oriented x3 and moves all extremities Objective Data Active Medications Acetaminophen (Acetaminophen 325 Mg Tablet) 650 mg PO Q6H PRN PRN Reason: Pain, Mild (Pain Scale 1-3) Last Admin: 05/08/22 05:18 Dose: 650 mg Documented By: ELIZA Amlodipine Besylate (Amlodipine Besylate 10 Mg Tablet) 10 mg PO DAILY@1200 [facility]; Protocol Last Admin: 05/07/22 13:00 Dose: 10 mg Documented By: ANA LUISA Apixaban (Apixaban 5 Mg Tablet) 5 mg PO BID [facility] Last Admin: 05/07/22 09:27 Dose: 5 mg Documented By: ANA LUISA Ascorbic Acid (Ascorbic Acid 500 Mg Tablet) 1,000 mg PO BID [facility] Last Admin: 05/08/22 09:09 Dose: 1,000 mg Documented By: ANA LUISA Atorvastatin Calcium (Atorvastatin Calcium 80 Mg Tablet) 80 mg PO DAILY [facility] Last Admin: 05/08/22 09:09 Dose: 80 mg Documented By: ANA LUISA Cyanocobalamin (Cyanocobalamin (Vitamin B-12) 100 Mcg Tablet) 200 mcg PO DAILY [facility] Last Admin: 05/08/22 09:10 Dose: 200 mcg Documented By: ANA LUISA Insulin Glargine (Insulin Glargine,Hum.Rec.Anlog 100 Unit/Ml 10 Ml Vial) 38 unit SUBCUT DAILY@1700 [facility] Last Admin: 05/07/22 17:23 Dose: 38 unit Documented By: ANA LUISA Insulin Human Lispro (Insulin Lispro 100 Unit/Ml 3 Ml Vial) 0 unit SUBCUT QIDACHS [facility]; Protocol Last Admin: 05/08/22 09:09 Dose: Not Given Documented By: ANA LUISA Non-Admin Reason: No Insulin Coverage Loperamide HCl (Loperamide Hcl 2 Mg Capsule) 2 mg PO Q4H PRN PRN Reason: diarrhea Last Admin: 05/07/22 15:32 Dose: 2 mg Documented By: MANDI Nystatin (Nystatin Powder 15 Gm Bottle) 1 appl TOPICAL BID [facility]; Protocol Last Admin: 05/08/22 09:13 Dose: 1 appl Documented By: ANA LUISA Pharmacy Consult (Consult Rx Perform Med Rec) 1 each MISCELLANE ONCE PRN PRN Reason: Consult order Tamsulosin HCl (Tamsulosin Hcl 0.4 Mg Capsule) 0.4 mg PO BEDTIME [facility] Last Admin: 05/07/22 22:48 Dose: 0.4 mg Documented By: ELIZA Vancomycin HCl (Vancomycin Hcl 125 Mg Capsule) 125 mg PO Q6H [facility] Last Admin: 05/08/22 09:10 Dose: 125 mg Documented By: ANA LUISA Vitamin D (Cholecalciferol (Vitamin D3) 25 Mcg Tablet) 50 mcg PO DAILY [facility] Last Admin: 05/08/22 09:09 Dose: 50 mcg Documented By: ANA LUISA Labs 05/08/22 05:52 05/08/22 05:52 Labs: Laboratory Results - last 24 hr 05/07/22 05/07/22 05/07/22 11:31 16:04 20:44 MCV MCH MCHC RDW Plt Count MPV Absolute Nucleated RBC Nucleated RBC % (auto) Anion Gap Estim Creat Clear Calc Estimated GFR POC Glucose 212 H 125 H 170 H Fasting Glucose Calcium 05/08/22 05/08/22 05/08/22 05:52 05:52 07:30 MCV 95.2 MCH 30.6 MCHC 32.1 RDW 14.7 Plt Count 144 L MPV 11.5 Absolute Nucleated RBC 0.000 Nucleated RBC % (auto) 0.0 Anion Gap 17 Estim Creat Clear Calc 79.3 Estimated GFR 48 POC Glucose 146 H Fasting Glucose 124 H Calcium 8.5 Microbiology Microbiology Results: Microbiology 05/03/22 03:13 Blood Culture - Final Blood - Venous No growth after 5 days. 05/03/22 03:13 Blood Culture - Final Blood - Venous No growth after 5 days. Assessment and Plan (1) Diabetes: Status: Acute Plan 71M PMH chronic afib, DM, CKD III, HTN, gout, sent in for margoth and severe hyperakelmia, was treated in ICU with kayexlyate and sodium bicarbonate, potassium improved and patient downgraded to medical floor. MARGOTH on CKD III with severe hyperkalemia and metabolic acidosis resolved bacturia ID appreciated, no clinical UTI DM inuslin morbid obesity wegiht loss diarrhea stool pcr negative cdif colonizer only, but empirically treating with vanco po imodium gi appreciated, plan for colono on 05/10/22 chronic afib eliquis - on hold for colono htn amlodipine hold lisinopril hold aldactone dvt prophylaxis - will use lovenox while eliquis on hold reason for continued hospitalization:diarrhea Time Spent With Patient Time: Total time managing care of this patient today ____ minutes. Quality Stroke Does the patient have a stroke diagnosis?: No VTE Prior VTE?: No VTE Risk Level:: Medical - moderate - high VTE Device Contraindication: N/A - Device Ordered VTE Drug Contraindication: N/A - Med Ordered
[2022-05-08 11:13] LABS: Glucose, Whole Blood 182 mg/dL (60-115)
[2022-05-08 12:00] VITALS: BP 142/76; PULSE 70; RESP 18; TEMP 36.6; O2SAT 98
[2022-05-08] MEDS: Enoxaparin Sodium 40 MG/0.4 ML SYRINGE SUBCUT (12:19)
[2022-05-08] MEDS: amLODIPine Besylate 10 MG TABLET PO (12:19)
[2022-05-08] MEDS: Insulin Lispro 100 UNIT/ML 3 ML VIAL SUBCUT ×3 (12:19→21:13)
[2022-05-08 15:36] VITALS: BP 135/66; PULSE 80; RESP 18; TEMP 36.2; O2SAT 99
[2022-05-08 16:12] LABS: Glucose, Whole Blood 180 mg/dL (60-115)
[2022-05-08] MEDS: Insulin Glargine,Hum.rec.anlog 100 UNIT/ML 10 ML VIAL 38 UNIT SUBCUT (17:11)
--- NOTE | 2022-05-08 17:19 | PM.EVENT ---
Event Note Date of Service: 05/08/22 Event Note: GI-I placed him on a clear liquid diet for 05/09 in preparation for a possible colonoscopy on Monday, 05/10(I will place prep orders on 05/09). However, if he is doing better and wants to go home on Monday, 05/09, I would plan for an outpatient colonoscopy instead. Please contact me on Monday to let me know his discharge plans so I can plan accordingly. Thanks very much. Time Spent With Patient Time: Total time managing care of this patient today ____ minutes.
[2022-05-08 20:00] VITALS: BP 151/67; PULSE 63; RESP 17; TEMP 36.8; O2SAT 98
[2022-05-08 20:49] LABS: Glucose, Whole Blood 210 mg/dL (60-115)
[2022-05-08] MEDS: Tamsulosin HCL 0.4 MG CAPSULE PO (21:13)
[2022-05-08] MEDS: Magnesium Hydrox/Alum Hydrox 30 ML ORAL.SUSP PO (23:21)
[2022-05-08] MEDS: diphenhydrAMINE HCL 50 MG/ML VIAL IVPUSH (23:22)
[2022-05-09] VITALS: BP 141/66; PULSE 65; RESP 18; TEMP 36.3; O2SAT 97
--- NOTE | 2022-05-09 | ECG_ITS ---
Test Reason : chest pain Blood Pressure : / mmHG Vent. Rate : 077 BPM Atrial Rate : 000 BPM P-R Int : 000 ms QRS Dur : 160 ms QT Int : 412 ms P-R-T Axes : 000 -77 028 degrees QTc Int : 466 ms Atrial fibrillation Left axis deviation Right bundle branch block Abnormal ECG When compared with ECG of 08-MAY-2022 11:21, Criteria for Anterior infarct are no longer Present Nonspecific T wave abnormality no longer evident in Anterior leads Referred By: Dedrick Leos Electronically Signed By:LOURDES OLEARY MD
[2022-05-09 04:00] VITALS: BP 145/63; PULSE 87; RESP 20; TEMP 36.1; O2SAT 97
[2022-05-09] MEDS: vancomycin HCL 125 MG CAPSULE PO ×4 (04:29→20:21)
--- NOTE | 2022-05-09 07:00 | CA_ITS ---
Transthoracic Echocardiogram Patient (Last, First, Middle): Geovanni Jimenez H Gender: Male Date of : 1950 Age: 71 Procedure Date: 05/09/2022 Procedure Type: Transthoracic Echocardiogram [place] [facility] [place]: 175.26 cm Weight: 193.69 kg BSA: 2.85 m2 Heart Rate: bpm BP: 142 / 68 mmHg Rod Pointer: JOAN Referring MD: Dedrick Leos MD Chairman & Ceo: Reji Bailey MD Symptoms: chest pain Study Quality: Technically Difficult, contrsat ECG Rhythm: Atrial Fibrillation Conclusions: - 1. Technically limited study despite use of contrast agent 2. LV systolic function appears to be low normal at LVEF of 50 55% 3. Poorly visualized cardiac valve structure with cardiac valvular Doppler within normal limits 4. Mildly elevated right from the systolic pressure and appears to have significantly elevated right atrial pressure Findings Procedure Information Contrast agent, definity, is being given per protocol without apparent complications. Left Ventricle The left ventrile was not well visualized. The left ventricular systolic function is low normal. The visually estimated ejection fraction is between 50-55%. Regional wall motion abnormalities can not be excluded due to suboptimal endocardial definition. Diastolic function is indeterminate on the basis of available data. Right Ventricle The right ventricle was not well visualized. Atria The left atrium was not well visualized. Interatrial shunt cannot be excluded. The right atrium was not well visualized. Aortic Valve The aortic valve structure and function is likely normal. There is mild calcification of the aortic valve. There is no aortic valve stenosis. There is no aortic valve regurgitation. Mitral Valve The mitral valve was not well visualized. There is no mitral valve regurgitation. There is no mitral valve stenosis. Pulmonic Valve The pulmonic valve was not well visualized. Tricuspid Valve The tricuspid valve was not well visualized. There is trace tricuspid valve regurgitation. Mild pulmonary hypertension is present. Great Vessels There is mild dilatation of the ascending aorta measuring 3.90 cm. Venous The inferior vena cava is severely dilated. Pericardium/Pleural The pericardium was not well visualized. Prior Study Comparison Changes noted compared to prior study dated: 10/09/2019. RV systolic pressure measured on this study are mildly elevated and lower than measured before Measurements 2D Linear Measurements LVOT Diam: 2.20 3.0+(-)1.3 cm Mitral Valve MV Pk E: 1.20 MV Decel Time: 313.00 E'Lateral: 9.23 E'Medial: 5.90 E/E' Med: 20.30 E/E' Lat: 13.00 PHT: 92.00 MVA PHT: 2.39 Decel [place]: 3.86 Aortic Valve AoV Pk Omar: 1.41 AoV Mn Omar: 0.97 AoV VTI: 0.27 AoV Pk Grad: 8.00 Aov Mn Grad: 4.00 ITZ Cont.VTI: 2.88 LVOT LVOT Pk Omar: 0.99 LVOT Mn Omar: 0.71 LVOT VTI: 0.21 LVOT Pk Grad: 4.00 LVOT Mn Grad: 2.00 LVOT Diam: 2.20 LVOT Area: 3.80 Diastolic Function MV Pk E: 1.20 E'Medial: 5.90 E/E' Med: 20.30 E' Laterial: 9.23 E/E' Lat: 13.00 Right Ventricle TAPSE (mm): 20.30 TVS' Omar: 10.50 Tricuspid Valve TR Pk Omar: 2.52 TR Pk Grad: 25.00 RA Press: 15.00 RVSP: 40.00 Great Vessels Aorta Ao Asc: 3.90 2.1-3.4 cm Updated in Other Vendor System with Status of Final Reji Bailey MD electronically signed on 05/09/2022 4:35:55 PM with status of Final
[2022-05-09 07:17] LABS: Glucose, Whole Blood 209 mg/dL (60-115)
[2022-05-09 07:23] VITALS: BP 142/68; PULSE 92; RESP 20; TEMP 37; O2SAT 96
[2022-05-09 07:41] LABS: Hematocrit 37.1 % (42.0-52.0); Hemoglobin 11.9 g/dl (14.0-18.0); Mean Corpuscular HGB Conc 32.1 g/dl (31.0-36.0); Mean Corpuscular Hemoglobin 30.6 pg (27.0-33.0); Mean Corpuscular Volume 95.4 fL (80.0-98.0); Mean Platelet Volume 11.8 fL (9.4-12.4); Platelet Count 159 X10*3/uL (160-400); Red Blood Count 3.89 X10*6/uL (4.60-5.80); Red Cell Distribution Width 14.6 % (11.0-16.0); White Blood Count 15.4 X10*3/uL (4.8-10.8)
[2022-05-09 08:08] LABS: Anion Gap 16 (12-20); Blood Urea Nitrogen 36 mg/dL (9-16); Calcium 8.6 mg/dL (8.4-10.2); Carbon Dioxide 23 mmol/L (22-29); Chloride 103 mmol/L (96-108); Creatinine Clr Calc Pharmacy 75.6; Estimated Glomerular Filt Rate 45; Glucose Fasting 217 mg/dL (60-99); Potassium 5.4 mmol/L (3.3-5.1); Sodium 137 mmol/L (135-145)
[2022-05-09] MEDS: Insulin Lispro 100 UNIT/ML 3 ML VIAL SUBCUT ×3 (08:42→20:24)
[2022-05-09] MEDS: Acetaminophen 325 MG TABLET 650 MG PO (08:42)
[2022-05-09] MEDS: Ascorbic Acid 500 MG TABLET 1000 MG PO ×2 (08:43→20:22)
[2022-05-09] MEDS: Cholecalciferol (Vitamin D3) 25 MCG TABLET 50 MCG PO (08:43)
[2022-05-09] MEDS: Cyanocobalamin (Vitamin B-12) 100 MCG TABLET 200 MCG PO (08:43)
[2022-05-09] MEDS: Atorvastatin Calcium 80 MG TABLET PO (08:43)
[2022-05-09] MEDS: Nystatin Powder 15 GM BOTTLE 1 APPL TOPICAL (08:56)
--- NOTE | 2022-05-09 09:16 | P.PNIM_ITS ---
Subjective Subjective Date of Service: 05/09/22 Interval History: epigastric pain Physical Exam Vital Signs: Vital Signs: Last Vital Signs Temp 98.6 F 05/09/22 07:23 Pulse 92 05/09/22 07:23 Resp 20 05/09/22 07:23 BP 142/68 H 05/09/22 07:23 Pulse Ox 96 05/09/22 07:23 O2 Del Method 05/09/22 07:23 O2 Flow Rate 1 05/09/22 00:00 BMI result Body Mass Index 63.1 Const: General: no acute distress Orientation/consciousness: patient oriented x3 Resp: Auscultation: diminished lung sounds Cardio: Rate: regular rate GI: Palpation (GI): Soft to palpation Neuro: General: patient oriented x3 and moves all extremities Objective Data Active Medications Acetaminophen (Acetaminophen 325 Mg Tablet) 650 mg PO Q6H PRN PRN Reason: Pain, Mild (Pain Scale 1-3) Last Admin: 05/09/22 08:42 Dose: 650 mg Documented By: MARY Amlodipine Besylate (Amlodipine Besylate 10 Mg Tablet) 10 mg PO DAILY@1200 [place]; Protocol Last Admin: 05/08/22 12:19 Dose: 10 mg Documented By: ANA LUISA Apixaban (Apixaban 5 Mg Tablet) 5 mg PO BID [facility] Last Admin: 05/07/22 09:27 Dose: 5 mg Documented By: ANA LUISA Ascorbic Acid (Ascorbic Acid 500 Mg Tablet) 1,000 mg PO BID [facility] Last Admin: 05/09/22 08:43 Dose: 1,000 mg Documented By: MARY Atorvastatin Calcium (Atorvastatin Calcium 80 Mg Tablet) 80 mg PO DAILY [facility] Last Admin: 05/09/22 08:43 Dose: 80 mg Documented By: MARY Cyanocobalamin (Cyanocobalamin (Vitamin B-12) 100 Mcg Tablet) 200 mcg PO DAILY [facility] Last Admin: 05/09/22 08:43 Dose: 200 mcg Documented By: MARY Enoxaparin Sodium (Enoxaparin Sodium 40 Mg/0.4 Ml Syringe) 40 mg SUBCUT Q24H [facility] Stop: 05/09/22 10:59 Last Admin: 05/08/22 12:19 Dose: 40 mg Documented By: ANA LUISA Insulin Glargine (Insulin Glargine,Hum.Rec.Anlog 100 Unit/Ml 10 Ml Vial) 38 unit SUBCUT DAILY@1700 [facility] Last Admin: 05/08/22 17:11 Dose: 38 unit Documented By: ANA LUISA Insulin Human Lispro (Insulin Lispro 100 Unit/Ml 3 Ml Vial) 0 unit SUBCUT QIDACHS [facility]; Protocol Last Admin: 05/09/22 08:42 Dose: 4 unit Documented By: MARY Loperamide HCl (Loperamide Hcl 2 Mg Capsule) 2 mg PO Q4H PRN PRN Reason: diarrhea Last Admin: 05/07/22 15:32 Dose: 2 mg Documented By: DOBROB Morphine Sulfate (Morphine Sulfate 2 Mg/Ml Cartridge) 2 mg IM Q2H PRN; Protocol PRN Reason: moderate pain Nystatin (Nystatin Powder 15 Gm Bottle) 1 appl TOPICAL BID [facility]; Protocol Last Admin: 05/09/22 08:56 Dose: 1 appl Documented By: MARY Pharmacy Consult (Consult Rx Perform Med Rec) 1 each MISCELLANE ONCE PRN PRN Reason: Consult order Tamsulosin HCl (Tamsulosin Hcl 0.4 Mg Capsule) 0.4 mg PO BEDTIME [facility] Last Admin: 05/08/22 21:13 Dose: 0.4 mg Documented By: HANNAH Vancomycin HCl (Vancomycin Hcl 125 Mg Capsule) 125 mg PO Q6H [facility] Last Admin: 05/09/22 08:44 Dose: 125 mg Documented By: MARY Vitamin D (Cholecalciferol (Vitamin D3) 25 Mcg Tablet) 50 mcg PO DAILY [facility] Last Admin: 05/09/22 08:43 Dose: 25 mcg Documented By: MARY Labs 05/09/22 07:12 05/09/22 07:12 Labs: Laboratory Results - last 24 hr 05/08/22 05/08/22 05/08/22 11:07 16:04 20:42 MCV MCH MCHC RDW Plt Count MPV Absolute Nucleated RBC Nucleated RBC % (auto) Anion Gap Estim Creat Clear Calc Estimated GFR POC Glucose 182 H 180 H 210 H Fasting Glucose Calcium 05/09/22 05/09/22 05/09/22 07:12 07:12 07:13 MCV 95.4 MCH 30.6 MCHC 32.1 RDW 14.6 Plt Count 159 L MPV 11.8 Absolute Nucleated RBC 0.000 Nucleated RBC % (auto) 0.0 Anion Gap 16 Estim Creat Clear Calc 75.6 Estimated GFR 45 POC Glucose 209 H Fasting Glucose 217 H Calcium 8.6 Microbiology Microbiology Results: Microbiology 05/03/22 03:13 Blood Culture - Final Blood - Venous No growth after 5 days. 05/03/22 03:13 Blood Culture - Final Blood - Venous No growth after 5 days. Assessment and Plan (1) Diabetes: Status: Acute Plan 71M PMH chronic afib, DM, CKD III, HTN, gout, sent in for margoth and severe hyperakelmia, was treated in ICU with kayexlyate and sodium bicarbonate, potassium improved and patient downgraded to medical floor. MARGOTH on CKD III with severe hyperkalemia and metabolic acidosis now with k of 5.4, monitor chest pain check ekg, trop, cxr, echo, ddimer bacturia ID appreciated, no clinical UTI DM inuslin morbid obesity wegiht loss diarrhea stool pcr negative cdif colonizer only, but empirically treating with vanco po imodium gi appreciated, plan for colono on 05/10/22 chronic afib eliquis - on hold for colono htn amlodipine hold lisinopril hold aldactone dvt prophylaxis - will use lovenox while eliquis on hold reason for continued hospitalization:diarrhea, chest pain Time Spent With Patient Time: Total time managing care of this patient today ____ minutes. Quality Stroke Does the patient have a stroke diagnosis?: No VTE Prior VTE?: No VTE Risk Level:: Medical - moderate - high VTE Device Contraindication: N/A - Device Ordered VTE Drug Contraindication: N/A - Med Ordered
[2022-05-09] MEDS: Morphine Sulfate 2 MG/ML CARTRIDGE IM (09:26)
[2022-05-09 10:08] LABS: D Dimer High Sensitivity 347 NG/ML
[2022-05-09 10:15] LABS: Troponin-I High Sensitivity 19.8 ng/L (<3.5-35.0)
--- NOTE | 2022-05-09 10:56 | PM.PNNEP ---
Subjective Subjective Date of Service: 05/10/22 Interval history: Events noted Physical Exam Vital Signs: Vital Signs: Last Vital Signs Temp 98.6 F 05/09/22 07:23 Pulse 92 05/09/22 07:23 Resp 20 05/09/22 07:23 BP 142/68 H 05/09/22 07:23 Pulse Ox 96 05/09/22 07:23 O2 Del Method 05/09/22 07:23 O2 Flow Rate 1 05/09/22 00:00 BMI result Body Mass Index 63.1 Const: General: no acute distress Orientation/consciousness: patient oriented x3 Eyes: EOM: EOMs intact bilaterally Neck: Neck: Yes supple Resp: Auscultation: diminished lung sounds Cardio: Rate: regular rate GI: Palpation (GI): Soft to palpation Neuro: General: patient oriented x3 and moves all extremities Objective Data Labs 05/09/22 07:12 05/09/22 07:12 Labs: Laboratory Results - last 24 hr 05/08/22 05/08/22 05/08/22 11:07 16:04 20:42 WBC RBC Hgb Hct MCV MCH MCHC RDW Plt Count MPV Absolute Nucleated RBC Nucleated RBC % (auto) D-Dimer High Sensitivty Sodium Potassium Chloride Carbon Dioxide Anion Gap BUN Creatinine Estim Creat Clear Calc Estimated GFR POC Glucose 182 H 180 H 210 H Fasting Glucose Calcium Troponin I High Sens 05/09/22 05/09/22 05/09/22 07:12 07:12 07:13 WBC 15.4 H RBC 3.89 L Hgb 11.9 L Hct 37.1 L MCV 95.4 MCH 30.6 MCHC 32.1 RDW 14.6 Plt Count 159 L MPV 11.8 Absolute Nucleated RBC 0.000 Nucleated RBC % (auto) 0.0 D-Dimer High Sensitivty Sodium 137 Potassium 5.4 H Chloride 103 Carbon Dioxide 23 Anion Gap 16 BUN 36 H Creatinine 1.52 H Estim Creat Clear Calc 75.6 Estimated GFR 45 POC Glucose 209 H Fasting Glucose 217 H Calcium 8.6 Troponin I High Sens 05/09/22 05/09/22 09:35 09:35 WBC RBC Hgb Hct MCV MCH MCHC RDW Plt Count MPV Absolute Nucleated RBC Nucleated RBC % (auto) D-Dimer High Sensitivty 347 Sodium Potassium Chloride Carbon Dioxide Anion Gap BUN Creatinine Estim Creat Clear Calc Estimated GFR POC Glucose Fasting Glucose Calcium Troponin I High Sens 19.8 Microbiology Microbiology Results: Microbiology 05/03/22 03:13 Blood - Venous Blood Culture - Final No growth after 5 days. 05/03/22 03:13 Blood - Venous Blood Culture - Final No growth after 5 days. 05/03/22 04:14 Urine clean catch - Urine scott top Urine Culture - Final Escherichia coli Procedures Date of Service Date of Service: 05/09/22 Assessment & Plan Assessment and plan (1) MARGOTH (acute kidney injury): Status: Acute Assessment and Plan: Mr. Geovanni Jimenez is a 71-year-old with a history of chronic afib, DM, CKD III (BL Cr 1.3-1.5mg/dL), HTN, gout, who presented with margoth and severe hyperakelmia, was treated in ICU with kayexlyate and sodium bicarbonate, potassium improved and patient downgraded to medical floor. GFR improved gradually with IVF support. MARGOTH on CKD III with severe hyperkalemia and metabolic acidosis Improved with Bicarb rich isotonic fluids GFR back to baseline Plan: - hold any Bart / ARBs / Aldactone. He is normotensive and has HyperK Add Lokelma 5 gm PO x 1 dose Low K diet - no current need for PO bicarb tablets - c/w amlodipine 10mg for HTN - monitor labs daily Time Spent With Patient Time: Total time managing care of this patient today ____ minutes. Progress Note: Quality Stroke Does the patient have a stroke diagnosis?: No
[2022-05-09 11:35] LABS: Glucose, Whole Blood 260 mg/dL (60-115)
[2022-05-09 11:41] VITALS: BP 129/62; PULSE 81; RESP 22; TEMP 36.9; O2SAT 98
--- NOTE | 2022-05-09 11:43 | MHC.CM.PN ---
Per ROUNDS discussion, Patient is not yet medically cleared for dc (IM Morphine, Epigastric Pain, Diarrhea, Chest Pain); Home/resume services is the goal and CM will continue to follow.
[2022-05-09] MEDS: Omeprazole 40 MG CAPSULE.DR PO (12:09)
[2022-05-09] MEDS: amLODIPine Besylate 10 MG TABLET PO (12:09)
[2022-05-09] MEDS: Morphine Sulfate 2 MG/ML CARTRIDGE IVPUSH (12:16)
[2022-05-09 14:53] VITALS: BP 147/67; PULSE 72; RESP 18; TEMP 36.7; O2SAT 98
[2022-05-09] MEDS: PEG 3350/Na Sulf,Bicarb,Cl/KCL 4,000 ML SOLN.RECON 4000 ML PO (15:23)
[2022-05-09] MEDS: Insulin Glargine,Hum.rec.anlog 100 UNIT/ML 10 ML VIAL 38 UNIT SUBCUT (15:26)
[2022-05-09 15:55] LABS: Glucose, Whole Blood 145 mg/dL (60-115)
[2022-05-09 18:03] LABS: Immunoglobulin A 96 mg/dL (70-320)
[2022-05-09] MEDS: bisacodyL 5 MG TABLET.DR 10 MG PO (18:04)
--- NOTE | 2022-05-09 18:31 | PC.NURSE ---
Pt alert and oriented x4. C/O severe epigastric/chest pain 12/11. notified. PRN Tylenol given with minimal effect. Morphine ordered and given with good effect. Pt will NPO after MN. Pt strated on GoLytle at 1500. Pt able to drink all of it and given Dulcolax Tabs PO with several loose BMs. Afib with RBBB on tele. EKG done and Labs reordered.
[2022-05-09 19:33] VITALS: BP 158/77; PULSE 89; RESP 18; TEMP 37.1; O2SAT 98
[2022-05-09 19:43] LABS: Glucose, Whole Blood 202 mg/dL (60-115)
[2022-05-09] MEDS: Tamsulosin HCL 0.4 MG CAPSULE PO (20:21)
[2022-05-10] VITALS (9 sets, daily range): BP systolic 102–147; BP diastolic 39–81; PULSE 79–91; RESP 15–20; TEMP 36.3–37.1; O2SAT 95–100
[2022-05-10 00:31] LABS: Appearance Urine Cloudy; Color Urine Yellow; Glucose Urine UA Negative (Negative); Leukocyte Esterase Urine Large (3+) (Negative); Nitrite Urine Negative (Negative); Specific Gravity - Urine 1.025 (1.005-1.025); UMIC TRIGGER UACC YES; Urine Blood Moderate (2+) (Negative); Urine Ketones Negative (Negative); Urine Protein 100 (2+) mg/dL (Neg-Trace)
[2022-05-10 00:46] LABS: Bacteria Urine 4+ (None Seen); Granular Casts Urine Present; UACC Culture Trigger YES; WBC Urine >50 /HPF (0-5)
--- NOTE | 2022-05-10 02:10 | PM.EVENT ---
Event Note Date of Service: 05/10/22 Event Note: Patient with complaints of burning on urination, urine positive. Started on ceftriaxone is previous sensitivity Time Spent With Patient Time: Total time managing care of this patient today ____ minutes.
[2022-05-10] MEDS: vancomycin HCL 125 MG CAPSULE PO ×4 (03:45→20:45)
[2022-05-10] MEDS: cefTRIAXone sodium 1 GM in 0.9 % Sodium Chloride 50 ML IV (03:45)
[2022-05-10] MEDS: Morphine Sulfate 2 MG/ML CARTRIDGE IVPUSH (03:46)
[2022-05-10] MEDS: Nystatin Powder 15 GM BOTTLE 1 APPL TOPICAL ×3 (03:47→22:34)
[2022-05-10 06:48] LABS: INTERNATIONAL NORM RATIO 1.3 (0.9-1.1); Prothrombin Time 15.4 SEC (10.0-13.1)
[2022-05-10 06:55] LABS: Hematocrit 36.6 % (42.0-52.0); Hemoglobin 11.8 g/dl (14.0-18.0); Mean Corpuscular HGB Conc 32.2 g/dl (31.0-36.0); Mean Corpuscular Hemoglobin 30.6 pg (27.0-33.0); Mean Corpuscular Volume 94.8 fL (80.0-98.0); Mean Platelet Volume 11.4 fL (9.4-12.4); Platelet Count 156 X10*3/uL (160-400); Red Blood Count 3.86 X10*6/uL (4.60-5.80); Red Cell Distribution Width 14.6 % (11.0-16.0); White Blood Count 13.7 X10*3/uL (4.8-10.8)
[2022-05-10 07:16] LABS: Blood Urea Nitrogen 36 mg/dL (9-16); Calcium 8.3 mg/dL (8.4-10.2); Creatinine Clr Calc Pharmacy 70.5; Estimated Glomerular Filt Rate 42; Glucose Fasting 148 mg/dL (60-99)
[2022-05-10 07:28] LABS: Glucose, Whole Blood 161 mg/dL (60-115)
[2022-05-10 07:32] LABS: Anion Gap 21 (12-20); Carbon Dioxide 19 mmol/L (22-29); Chloride 103 mmol/L (96-108); Sodium 138 mmol/L (135-145)
--- NOTE | 2022-05-10 08:58 | P.PNIM_ITS ---
Subjective Subjective Date of Service: 05/10/22 Interval History: epigastric pain resolved prep successful - + clear BMs dysuria Physical Exam Vital Signs: Vital Signs: Last Vital Signs Temp 97.5 F 05/10/22 07:28 Pulse 84 05/10/22 07:28 Resp 20 05/10/22 07:28 BP 129/64 05/10/22 07:28 Pulse Ox 99 05/10/22 07:28 O2 Del Method 05/10/22 07:28 O2 Flow Rate 2 05/09/22 14:53 BMI result Body Mass Index 63.1 Const: General: no acute distress Orientation/consciousness: patient oriented x3 Eyes: EOM: EOMs intact bilaterally Neck: Neck: Yes supple Resp: Auscultation: diminished lung sounds Cardio: Rate: regular rate GI: Palpation (GI): Soft to palpation Neuro: General: patient oriented x3 and moves all extremities Objective Data Active Medications Acetaminophen (Acetaminophen 325 Mg Tablet) 650 mg PO Q6H PRN PRN Reason: Pain, Mild (Pain Scale 1-3) Last Admin: 05/09/22 08:42 Dose: 650 mg Documented By: MARY Amlodipine Besylate (Amlodipine Besylate 10 Mg Tablet) 10 mg PO DAILY@1200 [place]; Protocol Last Admin: 05/09/22 12:09 Dose: 10 mg Documented By: AMRY Apixaban (Apixaban 5 Mg Tablet) 5 mg PO BID [facility] Last Admin: 05/07/22 09:27 Dose: 5 mg Documented By: ANA LUISA Ascorbic Acid (Ascorbic Acid 500 Mg Tablet) 1,000 mg PO BID [facility] Last Admin: 05/09/22 20:22 Dose: 1,000 mg Documented By: KARISHMA Atorvastatin Calcium (Atorvastatin Calcium 80 Mg Tablet) 80 mg PO DAILY [facility] Last Admin: 05/09/22 08:43 Dose: 80 mg Documented By: MARY Cyanocobalamin (Cyanocobalamin (Vitamin B-12) 100 Mcg Tablet) 200 mcg PO DAILY [facility] Last Admin: 05/09/22 08:43 Dose: 200 mcg Documented By: MARY Ceftriaxone Sodium 1 gm/ (Sodium Chloride) 50 mls @ 100 mls/hr IV Q24H [facility] Last Infusion: 05/10/22 05:24 Dose: 0 mls/hr Documented By: KARISHMA Lactated Ringer's (Lr) 1,000 mls @ 50 mls/hr IVCONT .Q20H [facility] Insulin Glargine (Insulin Glargine,Hum.Rec.Anlog 100 Unit/Ml 10 Ml Vial) 38 unit SUBCUT DAILY@1700 [facility] Last Admin: 05/09/22 15:26 Dose: 38 unit Documented By: MARY Insulin Human Lispro (Insulin Lispro 100 Unit/Ml 3 Ml Vial) 0 unit SUBCUT QIDACHS [facility]; Protocol Last Admin: 05/09/22 20:24 Dose: 4 unit Documented By: KARISHMA Lactic Acid (Ammonium Lactate 12 % Cream 140 Gm Tube) 1 appl TOPICAL BID PRN; Protocol PRN Reason: Dry Skin Morphine Sulfate (Morphine Sulfate 2 Mg/Ml Cartridge) 2 mg IVPUSH Q2H PRN; Protocol PRN Reason: moderate pain Last Admin: 05/10/22 03:46 Dose: 2 mg Documented By: KARISHMA Nystatin (Nystatin Powder 15 Gm Bottle) 1 appl TOPICAL BID [facility]; Protocol Last Admin: 05/10/22 03:47 Dose: 1 appl Documented By: KARISHMA Omeprazole (Omeprazole 40 Mg Capsule.) 40 mg PO DAILY@0630 [facility] Last Admin: 05/10/22 05:25 Dose: Not Given Documented By: KARISHMA Non-Admin Reason: NPO Pharmacy Consult (Consult Rx Perform Med Rec) 1 each MISCELLANE ONCE PRN PRN Reason: Consult order Tamsulosin HCl (Tamsulosin Hcl 0.4 Mg Capsule) 0.4 mg PO BEDTIME [facility] Last Admin: 05/09/22 20:21 Dose: 0.4 mg Documented By: KARISHMA Vancomycin HCl (Vancomycin Hcl 125 Mg Capsule) 125 mg PO Q6H [facility] Last Admin: 05/10/22 03:45 Dose: 125 mg Documented By: KARISHMA Vitamin D (Cholecalciferol (Vitamin D3) 25 Mcg Tablet) 50 mcg PO DAILY [facility] Last Admin: 05/09/22 08:43 Dose: 25 mcg Documented By: MARY Labs 05/10/22 06:21 05/10/22 06:21 Labs: Laboratory Results - last 24 hr 05/07/22 05/09/22 05/09/22 06:53 09:35 09:35 MCV MCH MCHC RDW Plt Count MPV Absolute Nucleated RBC Nucleated RBC % (auto) PT INR D-Dimer High Sensitivty 347 Anion Gap Estim Creat Clear Calc Estimated GFR POC Glucose Fasting Glucose Calcium Troponin I High Sens 19.8 Urine Color Urine Appearance Urine pH Ur Specific Carney Urine Protein Urine Glucose (UA) Urine Ketones Urine Blood Urine Nitrite Ur Leukocyte Esterase Urine RBC Urine WBC Ur Squamous Epith Cells Urine Bacteria Hyaline Casts Granular Casts IgA 96 05/09/22 05/09/22 05/09/22 11:31 14:52 19:34 MCV MCH MCHC RDW Plt Count MPV Absolute Nucleated RBC Nucleated RBC % (auto) PT INR D-Dimer High Sensitivty Anion Gap Estim Creat Clear Calc Estimated GFR POC Glucose 260 H 145 H 202 H Fasting Glucose Calcium Troponin I High Sens Urine Color Urine Appearance Urine pH Ur Specific Carney Urine Protein Urine Glucose (UA) Urine Ketones Urine Blood Urine Nitrite Ur Leukocyte Esterase Urine RBC Urine WBC Ur Squamous Epith Cells Urine Bacteria Hyaline Casts Granular Casts IgA 05/09/22 05/10/22 05/10/22 20:30 06:21 06:21 MCV 94.8 MCH 30.6 MCHC 32.2 RDW 14.6 Plt Count 156 L MPV 11.4 Absolute Nucleated RBC 0.000 Nucleated RBC % (auto) 0.0 PT INR D-Dimer High Sensitivty Anion Gap 21 H Estim Creat Clear Calc 70.5 Estimated GFR 42 POC Glucose Fasting Glucose 148 H Calcium 8.3 L Troponin I High Sens Urine Color Yellow Urine Appearance Cloudy Urine pH 6.0 Ur Specific Carney 1.025 Urine Protein 100 (2+) H Urine Glucose (UA) Negative Urine Ketones Negative Urine Blood Moderate (2+) H Urine Nitrite Negative Ur Leukocyte Esterase Large (3+) H Urine RBC 6-10 H Urine WBC >50 H Ur Squamous Epith Cells 3-5 Urine Bacteria 4+ Hyaline Casts 11-20 Granular Casts Present IgA 05/10/22 05/10/22 06:21 07:25 MCV MCH MCHC RDW Plt Count MPV Absolute Nucleated RBC Nucleated RBC % (auto) PT 15.4 H INR 1.3 H D-Dimer High Sensitivty Anion Gap Estim Creat Clear Calc Estimated GFR POC Glucose 161 H Fasting Glucose Calcium Troponin I High Sens Urine Color Urine Appearance Urine pH Ur Specific Carney Urine Protein Urine Glucose (UA) Urine Ketones Urine Blood Urine Nitrite Ur Leukocyte Esterase Urine RBC Urine WBC Ur Squamous Epith Cells Urine Bacteria Hyaline Casts Granular Casts IgA Assessment and Plan (1) Diabetes: Status: Acute Plan 71M PMH chronic afib, DM, CKD III, HTN, gout, sent in for margoth and severe hyperakelmia, was treated in ICU with kayexlyate and sodium bicarbonate, potassium improved and patient downgraded to medical floor. MARGOTH on CKD III with severe hyperkalemia and metabolic acidosis now at baseline creatinine, K -5 bicarb - 19 nephrol following chest/ epigastric pain resolved bacturia initially asymptomatic now with dysuria, will treat for UTI - rocephin DM inuslin morbid obesity wegiht loss diarrhea stool pcr negative cdif colonizer only, but empirically treating with vanco po imodium gi appreciated, plan for colono today 05/10/22 chronic afib eliquis - on hold for colono htn amlodipine hold lisinopril hold aldactone dvt prophylaxis - will use lovenox while eliquis on hold reason for continued hospitalization:plan for colono today Time Spent With Patient Time: Total time managing care of this patient today ____ minutes. Quality Stroke Does the patient have a stroke diagnosis?: No VTE Prior VTE?: No VTE Risk Level:: Medical - moderate - high VTE Device Contraindication: N/A - Device Ordered VTE Drug Contraindication: N/A - Med Ordered
[2022-05-10] MEDS: Atorvastatin Calcium 80 MG TABLET PO (09:27)
[2022-05-10] MEDS: Cholecalciferol (Vitamin D3) 25 MCG TABLET 50 MCG PO (09:27)
[2022-05-10] MEDS: Cyanocobalamin (Vitamin B-12) 100 MCG TABLET 200 MCG PO (09:28)
[2022-05-10] MEDS: Ascorbic Acid 500 MG TABLET 1000 MG PO ×2 (09:28→20:45)
[2022-05-10] MEDS: Omeprazole 40 MG CAPSULE.DR PO (09:29)
--- NOTE | 2022-05-10 10:10 | P.PNNP_ITS ---
Subjective Subjective Date of Service: 05/10/22 Interval history: Events noted For colonoscopy today Physical Exam Vital Signs: Vital Signs: Last Vital Signs Temp 97.5 F 05/10/22 07:28 Pulse 84 05/10/22 07:28 Resp 20 05/10/22 07:28 BP 129/64 05/10/22 07:28 Pulse Ox 99 05/10/22 07:28 O2 Del Method 05/10/22 07:28 O2 Flow Rate 2 05/09/22 14:53 BMI result Body Mass Index 63.1 Const: General: no acute distress Orientation/consciousness: patient oriented x3 Eyes: EOM: EOMs intact bilaterally Neck: Neck: Yes supple Resp: Auscultation: diminished lung sounds Cardio: Rate: regular rate GI: Palpation (GI): Soft to palpation Neuro: General: patient oriented x3 and moves all extremities Objective Data Labs 05/10/22 06:21 05/10/22 06:21 Labs: Laboratory Results - last 24 hr 05/07/22 05/09/22 05/09/22 06:53 09:35 11:31 WBC RBC Hgb Hct MCV MCH MCHC RDW Plt Count MPV Absolute Nucleated RBC Nucleated RBC % (auto) PT INR Sodium Potassium Chloride Carbon Dioxide Anion Gap BUN Creatinine Estim Creat Clear Calc Estimated GFR POC Glucose 260 H Fasting Glucose Calcium Troponin I High Sens 19.8 Urine Color Urine Appearance Urine pH Ur Specific [place] Urine Protein Urine Glucose (UA) Urine Ketones Urine Blood Urine Nitrite Ur Leukocyte Esterase Urine RBC Urine WBC Ur Squamous Epith Cells Urine Bacteria Hyaline Casts Granular Casts IgA 96 05/09/22 05/09/22 05/09/22 14:52 19:34 20:30 WBC RBC Hgb Hct MCV MCH MCHC RDW Plt Count MPV Absolute Nucleated RBC Nucleated RBC % (auto) PT INR Sodium Potassium Chloride Carbon Dioxide Anion Gap BUN Creatinine Estim Creat Clear Calc Estimated GFR POC Glucose 145 H 202 H Fasting Glucose Calcium Troponin I High Sens Urine Color Yellow Urine Appearance Cloudy Urine pH 6.0 Ur Specific [place] 1.025 Urine Protein 100 (2+) H Urine Glucose (UA) Negative Urine Ketones Negative Urine Blood Moderate (2+) H Urine Nitrite Negative Ur Leukocyte Esterase Large (3+) H Urine RBC 6-10 H Urine WBC >50 H Ur Squamous Epith Cells 3-5 Urine Bacteria 4+ Hyaline Casts 11-20 Granular Casts Present IgA 05/10/22 05/10/22 05/10/22 06:21 06:21 06:21 WBC 13.7 H RBC 3.86 L Hgb 11.8 L Hct 36.6 L MCV 94.8 MCH 30.6 MCHC 32.2 RDW 14.6 Plt Count 156 L MPV 11.4 Absolute Nucleated RBC 0.000 Nucleated RBC % (auto) 0.0 PT 15.4 H INR 1.3 H Sodium 138 Potassium 5.0 Chloride 103 Carbon Dioxide 19 L Anion Gap 21 H BUN 36 H Creatinine 1.63 H Estim Creat Clear Calc 70.5 Estimated GFR 42 POC Glucose Fasting Glucose 148 H Calcium 8.3 L Troponin I High Sens Urine Color Urine Appearance Urine pH Ur Specific [place] Urine Protein Urine Glucose (UA) Urine Ketones Urine Blood Urine Nitrite Ur Leukocyte Esterase Urine RBC Urine WBC Ur Squamous Epith Cells Urine Bacteria Hyaline Casts Granular Casts IgA 05/10/22 07:25 WBC RBC Hgb Hct MCV MCH MCHC RDW Plt Count MPV Absolute Nucleated RBC Nucleated RBC % (auto) PT INR Sodium Potassium Chloride Carbon Dioxide Anion Gap BUN Creatinine Estim Creat Clear Calc Estimated GFR POC Glucose 161 H Fasting Glucose Calcium Troponin I High Sens Urine Color Urine Appearance Urine pH Ur Specific [place] Urine Protein Urine Glucose (UA) Urine Ketones Urine Blood Urine Nitrite Ur Leukocyte Esterase Urine RBC Urine WBC Ur Squamous Epith Cells Urine Bacteria Hyaline Casts Granular Casts IgA Microbiology Microbiology Results: Microbiology 05/03/22 03:13 Blood - Venous Blood Culture - Final No growth after 5 days. 05/03/22 03:13 Blood - Venous Blood Culture - Final No growth after 5 days. 05/03/22 04:14 Urine clean catch - Urine scott top Urine Culture - Final Escherichia coli Procedures Date of Service Date of Service: 05/10/22 Assessment & Plan Assessment and plan (1) MARGOTH (acute kidney injury): Status: Acute Assessment and Plan: Mr. Geovanni Jimenez is a 71-year-old with a history of chronic afib, DM, CKD III (BL Cr 1.3-1.5mg/dL), HTN, gout, who presented with margoth and severe hyperakelmia, was treated in ICU with kayexlyate and sodium bicarbonate, potassium improved and patient downgraded to medical floor. GFR improved gradually with IVF support. MARGOTH on CKD III with severe hyperkalemia and metabolic acidosis Improved with Bicarb rich isotonic fluids GFR back to baseline Plan: - hold any Bart / ARBs / Aldactone. He is normotensive and has HyperK Lokelma 5 gm PO x prn fr K > 5.2 Low K diet - no current need for PO bicarb tablets; Watch tCO2 - c/w amlodipine 10mg for HTN - monitor labs daily Time Spent With Patient Time: Total time managing care of this patient today ____ minutes. Progress Note: Quality Stroke Does the patient have a stroke diagnosis?: No
[2022-05-10 11:23] LABS: Glucose, Whole Blood 145 mg/dL (60-115)
--- NOTE | 2022-05-10 13:03 | P.CONAN_ITS ---
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) Lymphedema (Acute) Varicose veins of right lower extremity with inflammation (Acute) Past Medical History Medical History Diabetes Hypertension Kidney disease Family History Family history of problems with anesthesia: No Surgical History History of Problems with Anesthesia: No Social History Social History Household Members: Spouse Housing: House Do you presently have visiting nurse or other home services: No Patient Tobacco Use Status: Never used Tobacco Use of substances other than those prescribed or required for medical reasons: No Currently Displaying Signs/Symptoms of Drug Intoxication Withdrawal: No Have you been hit, kicked, punched, or otherwise hurt by someone within the past year? If so, by whom?: No Do you feel safe in your current relationship?: Yes Is there a partner from a previous relationship who is making you feel unsafe now?: No Are you made to feel afraid or neglected: No Are you DNR?: No Advance Directives: No Advance Directives Information Provided: No Do you have thoughts of harming others: None Do you have a plan to hurt others: No Plan Recently lost weight without trying: No Eating poorly because of decreased appetite: No Nutrition Risks: No Nutritional Risk Poor oral hygiene: No service: Yes Current occupational status: retired Meds Allergies Allergy/AdvReac Type Severity Reaction Status Date / Time Penicillins AdvReac Intermediate HALLUCINATIONS, Verified 04/08/21 15:49 SWEATS Active Medications: Current Medications Acetaminophen (Acetaminophen 325 Mg Tablet) 650 mg PO Q6H PRN PRN Reason: Pain, Mild (Pain Scale 1-3) Last Admin: 05/09/22 08:42 Dose: 650 mg Amlodipine Besylate (Amlodipine Besylate 10 Mg Tablet) 10 mg PO DAILY@1200 [facility]; Protocol Last Admin: 05/09/22 12:09 Dose: 10 mg Apixaban (Apixaban 5 Mg Tablet) 5 mg PO BID [facility] Last Admin: 05/07/22 09:27 Dose: 5 mg Ascorbic Acid (Ascorbic Acid 500 Mg Tablet) 1,000 mg PO BID [facility] Last Admin: 05/10/22 09:28 Dose: 1,000 mg Atorvastatin Calcium (Atorvastatin Calcium 80 Mg Tablet) 80 mg PO DAILY [facility] Last Admin: 05/10/22 09:27 Dose: 80 mg Cyanocobalamin (Cyanocobalamin (Vitamin B-12) 100 Mcg Tablet) 200 mcg PO DAILY [facility] Last Admin: 05/10/22 09:28 Dose: 200 mcg Ceftriaxone Sodium 1 gm/ (Sodium Chloride) 50 mls @ 100 mls/hr IV Q24H [facility] Last Infusion: 05/10/22 05:24 Dose: Infused Lactated Ringer's (Lr) 1,000 mls @ 50 mls/hr IVCONT .Q20H [facility] Insulin Glargine (Insulin Glargine,Hum.Rec.Anlog 100 Unit/Ml 10 Ml Vial) 38 unit SUBCUT DAILY@1700 [facility] Last Admin: 05/09/22 15:26 Dose: 38 unit Insulin Human Lispro (Insulin Lispro 100 Unit/Ml 3 Ml Vial) 0 unit SUBCUT QIDACHS [facility]; Protocol Last Admin: 05/10/22 11:39 Dose: Not Given Lactic Acid (Ammonium Lactate 12 % Cream 140 Gm Tube) 1 appl TOPICAL BID PRN; Protocol PRN Reason: Dry Skin Morphine Sulfate (Morphine Sulfate 2 Mg/Ml Cartridge) 2 mg IVPUSH Q2H PRN; Protocol PRN Reason: moderate pain Last Admin: 05/10/22 03:46 Dose: 2 mg Nystatin (Nystatin Powder 15 Gm Bottle) 1 appl TOPICAL BID [facility]; Protocol Last Admin: 05/10/22 09:31 Dose: 1 appl Omeprazole (Omeprazole 40 Mg Capsule.) 40 mg PO DAILY@0630 [facility] Last Admin: 05/10/22 09:29 Dose: 40 mg Pharmacy Consult (Consult Rx Perform Med Rec) 1 each MISCELLANE ONCE PRN PRN Reason: Consult order Tamsulosin HCl (Tamsulosin Hcl 0.4 Mg Capsule) 0.4 mg PO BEDTIME [facility] Last Admin: 05/09/22 20:21 Dose: 0.4 mg Vancomycin HCl (Vancomycin Hcl 125 Mg Capsule) 125 mg PO Q6H [facility] Last Admin: 05/10/22 09:28 Dose: 125 mg Vitamin D (Cholecalciferol (Vitamin D3) 25 Mcg Tablet) 50 mcg PO DAILY [facility] Last Admin: 05/10/22 09:27 Dose: 50 mcg Home Medications Medication Instructions Recorded Confirmed Last Taken Type allopurinol 300 mg tablet 300 mg PO DAILY 11/03/20 05/02/22 05/02/22 History ascorbic acid (vitamin C) 1,000 mg 1,000 mg PO BID 11/03/20 05/02/22 05/02/22 History tablet (Vitamin C) cholecalciferol (vitamin D3) 50 50 mcg PO DAILY 11/03/20 05/02/22 05/02/22 History mcg (2,000 unit) capsule insulin aspart U-100 100 unit/mL 16 unit subcut DAILY@1130 11/03/20 05/02/22 05/02/22 History subcutaneous solution (Novolog U-100 Insulin aspart) insulin aspart U-100 100 unit/mL 24 unit subcut DAILY@1630 11/03/20 05/02/22 05/02/22 History subcutaneous solution (Novolog U-100 Insulin aspart) methenamine hippurate 1 gram tablet 1 g PO BID 11/03/20 05/02/22 05/02/22 History spironolactone 25 mg tablet 25 mg PO BID@0900,1700 11/03/20 05/02/22 05/02/22 History tamsulosin 0.4 mg capsule 0.4 mg PO BEDTIME 11/03/20 05/02/22 05/02/22 History torsemide 20 mg tablet 20 mg PO DAILY 11/03/20 05/02/22 05/02/22 History amlodipine 5 mg tablet 5 mg PO DAILY@1200 05/02/22 05/02/22 05/02/22 History cyanocobalamin (vitamin B-12) 100 200 mcg PO DAILY 05/02/22 05/02/22 05/02/22 History mcg tablet insulin glargine 100 unit/mL (3 38 unit subcut DAILY@1700 05/02/22 05/02/22 05/02/22 History mL) subcutaneous pen (Lantus Solostar U-100 Insulin) insulin lispro 100 unit/mL 8 unit subcut DAILY@0730 05/02/22 05/02/22 05/02/22 History subcutaneous pen lisinopril 10 mg tablet 10 mg PO DAILY@1200 05/02/22 05/02/22 05/02/22 History rosuvastatin 40 mg tablet 20 mg PO DAILY 05/02/22 05/02/22 05/02/22 History Exam Exam Date and Time: May 10, 2022 1303 Height,Weight and Vital Signs: Height 5 ft 9 in Weight 194.1 kg Last Vital Signs Temp 97.4 F 05/10/22 11:12 Pulse 91 05/10/22 11:12 Resp 16 05/10/22 11:12 BP 147/81 H 05/10/22 11:12 Pulse Ox 99 05/10/22 11:12 O2 Del Method 05/10/22 11:12 O2 Flow Rate 2 05/09/22 14:53 Pertinent Lab Results Pertinent Lab Results: Laboratory Tests 05/02/22 05/02/22 05/02/22 19:40 19:40 19:40 WBC 12.5 H RBC 4.27 L Hgb 13.0 L Hct 40.4 L MCV 94.6 MCH 30.4 MCHC 32.2 RDW 15.7 Plt Count 179 MPV 10.4 Immature Gran % (Auto) 0.6 H Neut % (Auto) 83.9 H Lymph % (Auto) 6.9 L [place] % (Auto) 6.2 Eos % (Auto) 2.2 Baso % (Auto) 0.2 Lymph # (Auto) 0.9 L [place] # (Auto) 0.8 Eos # (Auto) 0.3 Baso # (Auto) 0.0 Abs Immat Gran (auto) 0.08 H Absolute Neuts (auto) 10.5 H Absolute Nucleated RBC 0.000 Nucleated RBC % (auto) 0.0 PT INR D-Dimer High Sensitivty VBG pH VBG pCO2 VBG pO2 VBG HCO3 VBG O2 Saturation VBG Base Excess Sodium 138 Potassium 7.7 H* D Chloride 115 H Carbon Dioxide 12 L Anion Gap 19 BUN 83 H Creatinine 2.86 H Estim Creat Clear Calc 39.1 Estimated GFR 22 POC Glucose Random Glucose 132 H Fasting Glucose Lactic Acid Calcium 9.2 Phosphorus Magnesium 1.7 Total Bilirubin 0.6 Direct Bilirubin 0.2 AST 16 ALT 17 Alkaline Phosphatase 84 Troponin I High Sens Total Protein 7.0 Albumin 4.0 Urine Color Urine Appearance Urine pH Ur Specific [place] Urine Protein Urine Glucose (UA) Urine Ketones Urine Blood Urine Nitrite Ur Leukocyte Esterase Urine RBC Urine WBC Ur Squamous Epith Cells Urine Bacteria Hyaline Casts Granular Casts Stl C. cayetanensis PCR Stool Rotavirus A PCR Stl Adenov F 40/41 PCR Stool Astrovirus (PCR) Stool Campylobacter PCR Stool Cryptosporidium PCR Stl Sh Tox Pr E STEC PCR Stool E coli O157 PCR Stl Enterotoxigenic E PCR Stool EPEC (PCR) Stool EAEC (PCR) Stl E. histolytica PCR Stool Giardia Lamblia PCR Stl P. shigelloides PCR Stool Salmonella PCR Stool Sapovirus (PCR) Stl Shigella/EIEC PCR St Y.enterocolitica PCR Stool Vibrio (PCR) Stl Vibrio cholerae PCR Stl Norovirus GI/GII PCR IgA C. difficile Tox B Gene C. difficile Toxin A&B C. difficile Interpret Influenza Type A (PCR) NEGATIVE Influenza Type B (PCR) NEGATIVE RSV RNA Qual (PCR) NEGATIVE SARS-CoV-2 RNA (RT-PCR) NEGATIVE 05/02/22 05/02/22 05/02/22 19:40 20:35 21:20 WBC RBC Hgb Hct MCV MCH MCHC RDW Plt Count MPV Immature Gran % (Auto) Neut % (Auto) Lymph % (Auto) [place] % (Auto) Eos % (Auto) Baso % (Auto) Lymph # (Auto) [place] # (Auto) Eos # (Auto) Baso # (Auto) Abs Immat Gran (auto) Absolute Neuts (auto) Absolute Nucleated RBC Nucleated RBC % (auto) PT INR D-Dimer High Sensitivty VBG pH VBG pCO2 VBG pO2 VBG HCO3 VBG O2 Saturation VBG Base Excess Sodium 139 Potassium 7.2 H* Chloride 115 H Carbon Dioxide 15 L Anion Gap 16 BUN 82 H Creatinine 2.83 H Estim Creat Clear Calc 39.5 Estimated GFR 22 POC Glucose 138 H Random Glucose 157 H Fasting Glucose Lactic Acid Calcium 8.9 Phosphorus Magnesium Total Bilirubin Direct Bilirubin AST ALT Alkaline Phosphatase Troponin I High Sens 31.3 Total Protein Albumin Urine Color Urine Appearance Urine pH Ur Specific [place] Urine Protein Urine Glucose (UA) Urine Ketones Urine Blood Urine Nitrite Ur Leukocyte Esterase Urine RBC Urine WBC Ur Squamous Epith Cells Urine Bacteria Hyaline Casts Granular Casts Stl C. cayetanensis PCR Stool Rotavirus A PCR Stl Adenov F PCR Stool Astrovirus (PCR) Stool Campylobacter PCR Stool Cryptosporidium PCR Stl Sh Tox Pr E STEC PCR Stool E coli O157 PCR Stl Enterotoxigenic E PCR Stool EPEC (PCR) Stool EAEC (PCR) Stl E. histolytica PCR Stool Giardia Lamblia PCR Stl P. shigelloides PCR Stool Salmonella PCR Stool Sapovirus (PCR) Stl Shigella/EIEC PCR St Y.enterocolitica PCR Stool Vibrio (PCR) Stl Vibrio cholerae PCR Stl Norovirus GI/GII PCR IgA C. difficile Tox B Gene C. difficile Toxin A&B C. difficile Interpret Influenza Type A (PCR) Influenza Type B (PCR) RSV RNA Qual (PCR) SARS-CoV-2 RNA (RT-PCR) 05/02/22 05/02/22 05/03/22 23:48 23:52 01:05 WBC RBC Hgb Hct MCV MCH MCHC RDW Plt Count MPV Immature Gran % (Auto) Neut % (Auto) Lymph % (Auto) [place] % (Auto) Eos % (Auto) Baso % (Auto) Lymph # (Auto) [place] # (Auto) Eos # (Auto) Baso # (Auto) Abs Immat Gran (auto) Absolute Neuts (auto) Absolute Nucleated RBC Nucleated RBC % (auto) PT INR D-Dimer High Sensitivty VBG pH 7.21 L VBG pCO2 40 VBG pO2 50 VBG HCO3 16 L VBG O2 Saturation 75.0 VBG Base Excess -10.5 Sodium 140 139 Potassium 6.9 H* 6.7 H* Chloride 118 H 118 H Carbon Dioxide 12 L 12 L Anion Gap 17 16 BUN 82 H 84 H Creatinine 2.96 H 2.99 H Estim Creat Clear Calc 37.8 37.4 Estimated GFR 21 21 POC Glucose Random Glucose 178 H 177 H Fasting Glucose Lactic Acid Calcium 9.1 9.0 Phosphorus Magnesium Total Bilirubin Direct Bilirubin AST ALT Alkaline Phosphatase Troponin I High Sens Total Protein Albumin Urine Color Urine Appearance Urine pH Ur Specific [place] Urine Protein Urine Glucose (UA) Urine Ketones Urine Blood Urine Nitrite Ur Leukocyte Esterase Urine RBC Urine WBC Ur Squamous Epith Cells Urine Bacteria Hyaline Casts Granular Casts Stl C. cayetanensis PCR Stool Rotavirus A PCR Stl Adenov PCR Stool Astrovirus (PCR) Stool Campylobacter PCR Stool Cryptosporidium PCR Stl Sh Tox Pr E STEC PCR Stool E coli O157 PCR Stl Enterotoxigenic E PCR Stool EPEC (PCR) Stool EAEC (PCR) Stl E. histolytica PCR Stool Giardia Lamblia PCR Stl P. shigelloides PCR Stool Salmonella PCR Stool Sapovirus (PCR) Stl Shigella/EIEC PCR St Y.enterocolitica PCR Stool Vibrio (PCR) Stl Vibrio cholerae PCR Stl Norovirus GI/GII PCR IgA C. difficile Tox B Gene C. difficile Toxin A&B C. difficile Interpret Influenza Type A (PCR) Influenza Type B (PCR) RSV RNA Qual (PCR) SARS-CoV-2 RNA (RT-PCR) 05/03/22 05/03/22 05/03/22 03:13 04:15 06:12 WBC RBC Hgb Hct MCV MCH MCHC RDW Plt Count MPV Immature Gran % (Auto) Neut % (Auto) Lymph % (Auto) [place] % (Auto) Eos % (Auto) Baso % (Auto) Lymph # (Auto) [place] # (Auto) Eos # (Auto) Baso # (Auto) Abs Immat Gran (auto) Absolute Neuts (auto) Absolute Nucleated RBC Nucleated RBC % (auto) PT INR D-Dimer High Sensitivty VBG pH 7.23 L VBG pCO2 27 VBG pO2 44 VBG HCO3 11 L VBG O2 Saturation 72.0 VBG Base Excess -14.1 Sodium Potassium Chloride Carbon Dioxide Anion Gap BUN Creatinine Estim Creat Clear Calc Estimated GFR POC Glucose Random Glucose Fasting Glucose Lactic Acid 1.2 Calcium Phosphorus Magnesium Total Bilirubin Direct Bilirubin AST ALT Alkaline Phosphatase Troponin I High Sens Total Protein Albumin Urine Color Yellow Urine Appearance Turbid Urine pH 5.5 Ur Specific [place] 1.015 Urine Protein 100 (2+) H Urine Glucose (UA) Negative Urine Ketones Negative Urine Blood Small (1+) H Urine Nitrite Negative Ur Leukocyte Esterase Large (3+) H Urine RBC 3-5 H Urine WBC >50 H Ur Squamous Epith Cells 3-5 Urine Bacteria 4+ Hyaline Casts 0-2 Granular Casts Stl C. cayetanensis PCR Stool Rotavirus A PCR Stl Adenov F 40/41 PCR Stool Astrovirus (PCR) Stool Campylobacter PCR Stool Cryptosporidium PCR Stl Sh Tox Pr E STEC PCR Stool E coli O157 PCR Stl Enterotoxigenic E PCR Stool EPEC (PCR) Stool EAEC (PCR) Stl E. histolytica PCR Stool Giardia Lamblia PCR Stl P. shigelloides PCR Stool Salmonella PCR Stool Sapovirus (PCR) Stl Shigella/EIEC PCR St Y.enterocolitica PCR Stool Vibrio (PCR) Stl Vibrio cholerae PCR Stl Norovirus GI/GII PCR IgA C. difficile Tox B Gene C. difficile Toxin A&B C. difficile Interpret Influenza Type A (PCR) Influenza Type B (PCR) RSV RNA Qual (PCR) SARS-CoV-2 RNA (RT-PCR) 05/03/22 05/03/22 05/03/22 06:14 06:15 06:24 WBC 11.3 H RBC 4.19 L Hgb 12.7 L Hct 39.8 L MCV 95.0 MCH 30.3 MCHC 31.9 RDW 15.7 Plt Count 185 MPV 11.0 Immature Gran % (Auto) 0.8 H Neut % (Auto) 82.9 H Lymph % (Auto) 7.5 L [place] % (Auto) 6.7 Eos % (Auto) 1.8 Baso % (Auto) 0.3 Lymph # (Auto) 0.9 L [place] # (Auto) 0.8 Eos # (Auto) 0.2 Baso # (Auto) 0.0 Abs Immat Gran (auto) 0.09 H Absolute Neuts (auto) 9.4 H Absolute Nucleated RBC 0.000 Nucleated RBC % (auto) 0.0 PT INR D-Dimer High Sensitivty VBG pH VBG pCO2 VBG pO2 VBG HCO3 VBG O2 Saturation VBG Base Excess Sodium 139 Potassium 6.3 H* Chloride 117 H Carbon Dioxide 12 L Anion Gap 16 BUN 79 H Creatinine 2.77 H Estim Creat Clear Calc 41.3 Estimated GFR 23 POC Glucose 172 H Random Glucose 172 H Fasting Glucose Lactic Acid Calcium 8.8 Phosphorus 4.1 Magnesium 1.6 Total Bilirubin Direct Bilirubin AST ALT Alkaline Phosphatase Troponin I High Sens Total Protein Albumin 3.9 Urine Color Urine Appearance Urine pH Ur Specific [place] Urine Protein Urine Glucose (UA) Urine Ketones Urine Blood Urine Nitrite Ur Leukocyte Esterase Urine RBC Urine WBC Ur Squamous Epith Cells Urine Bacteria Hyaline Casts Granular Casts Stl C. cayetanensis PCR Stool Rotavirus A PCR Stl Adenov F 40/41 PCR Stool Astrovirus (PCR) Stool Campylobacter PCR Stool Cryptosporidium PCR Stl Sh Tox Pr E STEC PCR Stool E coli O157 PCR Stl Enterotoxigenic E PCR Stool EPEC (PCR) Stool EAEC (PCR) Stl E. histolytica PCR Stool Giardia Lamblia PCR Stl P. shigelloides PCR Stool Salmonella PCR Stool Sapovirus (PCR) Stl Shigella/EIEC PCR St Y.enterocolitica PCR Stool Vibrio (PCR) Stl Vibrio cholerae PCR Stl Norovirus GI/GII PCR IgA C. difficile Tox B Gene C. difficile Toxin A&B C. difficile Interpret Influenza Type A (PCR) Influenza Type B (PCR) RSV RNA Qual (PCR) SARS-CoV-2 RNA (RT-PCR) 05/03/22 05/03/22 05/03/22 08:29 11:27 12:36 WBC RBC Hgb Hct MCV MCH MCHC RDW Plt Count MPV Immature Gran % (Auto) Neut % (Auto) Lymph % (Auto) [place] % (Auto) Eos % (Auto) Baso % (Auto) Lymph # (Auto) [place] # (Auto) Eos # (Auto) Baso # (Auto) Abs Immat Gran (auto) Absolute Neuts (auto) Absolute Nucleated RBC Nucleated RBC % (auto) PT INR D-Dimer High Sensitivty VBG pH VBG pCO2 VBG pO2 VBG HCO3 VBG O2 Saturation VBG Base Excess Sodium 141 Potassium 5.5 H Chloride 116 H Carbon Dioxide 15 L Anion Gap 16 BUN 74 H Creatinine 2.53 H Estim Creat Clear Calc 45.2 Estimated GFR 25 POC Glucose 154 H 222 H Random Glucose 159 H Fasting Glucose Lactic Acid Calcium 8.8 Phosphorus Magnesium Total Bilirubin Direct Bilirubin AST ALT Alkaline Phosphatase Troponin I High Sens Total Protein Albumin Urine Color Urine Appearance Urine pH Ur Specific [place] Urine Protein Urine Glucose (UA) Urine Ketones Urine Blood Urine Nitrite Ur Leukocyte Esterase Urine RBC Urine WBC Ur Squamous Epith Cells Urine Bacteria Hyaline Casts Granular Casts Stl C. cayetanensis PCR Stool Rotavirus A PCR Stl Adenov F 40/41 PCR Stool Astrovirus (PCR) Stool Campylobacter PCR Stool Cryptosporidium PCR Stl Sh Tox Pr E STEC PCR Stool E coli O157 PCR Stl Enterotoxigenic E PCR Stool EPEC (PCR) Stool EAEC (PCR) Stl E. histolytica PCR Stool Giardia Lamblia PCR Stl P. shigelloides PCR Stool Salmonella PCR Stool Sapovirus (PCR) Stl Shigella/EIEC PCR St Y.enterocolitica PCR Stool Vibrio (PCR) Stl Vibrio cholerae PCR Stl Norovirus GI/GII PCR IgA C. difficile Tox B Gene C. difficile Toxin A&B C. difficile Interpret Influenza Type A (PCR) Influenza Type B (PCR) RSV RNA Qual (PCR) SARS-CoV-2 RNA (RT-PCR) 05/03/22 05/03/22 05/04/22 17:34 21:03 06:06 WBC 8.6 RBC 3.75 L Hgb 11.5 L Hct 35.4 L MCV 94.4 MCH 30.7 MCHC 32.5 RDW 15.5 Plt Count 155 L MPV 11.5 Immature Gran % (Auto) Neut % (Auto) Lymph % (Auto) [place] % (Auto) Eos % (Auto) Baso % (Auto) Lymph # (Auto) [place] # (Auto) Eos # (Auto) Baso # (Auto) Abs Immat Gran (auto) Absolute Neuts (auto) Absolute Nucleated RBC 0.000 Nucleated RBC % (auto) 0.0 PT INR D-Dimer High Sensitivty VBG pH VBG pCO2 VBG pO2 VBG HCO3 VBG O2 Saturation VBG Base Excess Sodium Potassium Chloride Carbon Dioxide Anion Gap BUN Creatinine Estim Creat Clear Calc Estimated GFR POC Glucose 180 H 246 H Random Glucose Fasting Glucose Lactic Acid Calcium Phosphorus Magnesium Total Bilirubin Direct Bilirubin AST ALT Alkaline Phosphatase Troponin I High Sens Total Protein Albumin Urine Color Urine Appearance Urine pH Ur Specific [place] Urine Protein Urine Glucose (UA) Urine Ketones Urine Blood Urine Nitrite Ur Leukocyte Esterase Urine RBC Urine WBC Ur Squamous Epith Cells Urine Bacteria Hyaline Casts Granular Casts Stl C. cayetanensis PCR Stool Rotavirus A PCR Stl Adenov F 40/41 PCR Stool Astrovirus (PCR) Stool Campylobacter PCR Stool Cryptosporidium PCR Stl Sh Tox Pr E STEC PCR Stool E coli O157 PCR Stl Enterotoxigenic E PCR Stool EPEC (PCR) Stool EAEC (PCR) Stl E. histolytica PCR Stool Giardia Lamblia PCR Stl P. shigelloides PCR Stool Salmonella PCR Stool Sapovirus (PCR) Stl Shigella/EIEC PCR St Y.enterocolitica PCR Stool Vibrio (PCR) Stl Vibrio cholerae PCR Stl Norovirus GI/GII PCR IgA C. difficile Tox B Gene C. difficile Toxin A&B C. difficile Interpret Influenza Type A (PCR) Influenza Type B (PCR) RSV RNA Qual (PCR) SARS-CoV-2 RNA (RT-PCR) 05/04/22 05/04/22 05/04/22 06:06 07:38 11:03 WBC RBC Hgb Hct MCV MCH MCHC RDW Plt Count MPV Immature Gran % (Auto) Neut % (Auto) Lymph % (Auto) [place] % (Auto) Eos % (Auto) Baso % (Auto) Lymph # (Auto) [place] # (Auto) Eos # (Auto) Baso # (Auto) Abs Immat Gran (auto) Absolute Neuts (auto) Absolute Nucleated RBC Nucleated RBC % (auto) PT INR D-Dimer High Sensitivty VBG pH VBG pCO2 VBG pO2 VBG HCO3 VBG O2 Saturation VBG Base Excess Sodium 141 Potassium 5.2 H Chloride 113 H Carbon Dioxide 17 L Anion Gap 16 BUN 64 H Creatinine 2.29 H Estim Creat Clear Calc 50.0 Estimated GFR 28 POC Glucose 200 H 197 H Random Glucose 207 H Fasting Glucose Lactic Acid Calcium 8.1 L D Phosphorus Magnesium Total Bilirubin Direct Bilirubin AST ALT Alkaline Phosphatase Troponin I High Sens Total Protein Albumin Urine Color Urine Appearance Urine pH Ur Specific [place] Urine Protein Urine Glucose (UA) Urine Ketones Urine Blood Urine Nitrite Ur Leukocyte Esterase Urine RBC Urine WBC Ur Squamous Epith Cells Urine Bacteria Hyaline Casts Granular Casts Stl C. cayetanensis PCR Stool Rotavirus A PCR Stl Adenov F 40/41 PCR Stool Astrovirus (PCR) Stool Campylobacter PCR Stool Cryptosporidium PCR Stl Sh Tox Pr E STEC PCR Stool E coli O157 PCR Stl Enterotoxigenic E PCR Stool EPEC (PCR) Stool EAEC (PCR) Stl E. histolytica PCR Stool Giardia Lamblia PCR Stl P. shigelloides PCR Stool Salmonella PCR Stool Sapovirus (PCR) Stl Shigella/EIEC PCR St Y.enterocolitica PCR Stool Vibrio (PCR) Stl Vibrio cholerae PCR Stl Norovirus GI/GII PCR IgA C. difficile Tox B Gene C. difficile Toxin A&B C. difficile Interpret Influenza Type A (PCR) Influenza Type B (PCR) RSV RNA Qual (PCR) SARS-CoV-2 RNA (RT-PCR) 05/04/22 05/04/22 05/04/22 14:56 14:56 16:27 WBC RBC Hgb Hct MCV MCH MCHC RDW Plt Count MPV Immature Gran % (Auto) Neut % (Auto) Lymph % (Auto) [place] % (Auto) Eos % (Auto) Baso % (Auto) Lymph # (Auto) [place] # (Auto) Eos # (Auto) Baso # (Auto) Abs Immat Gran (auto) Absolute Neuts (auto) Absolute Nucleated RBC Nucleated RBC % (auto) PT INR D-Dimer High Sensitivty VBG pH VBG pCO2 VBG pO2 VBG HCO3 VBG O2 Saturation VBG Base Excess Sodium Potassium Chloride Carbon Dioxide Anion Gap BUN Creatinine Estim Creat Clear Calc Estimated GFR POC Glucose 159 H Random Glucose Fasting Glucose Lactic Acid Calcium Phosphorus Magnesium Total Bilirubin Direct Bilirubin AST ALT Alkaline Phosphatase Troponin I High Sens Total Protein Albumin Urine Color Urine Appearance Urine pH Ur Specific [place] Urine Protein Urine Glucose (UA) Urine Ketones Urine Blood Urine Nitrite Ur Leukocyte Esterase Urine RBC Urine WBC Ur Squamous Epith Cells Urine Bacteria Hyaline Casts Granular Casts Stl C. cayetanensis PCR Not Detected Stool Rotavirus A PCR Not Detected Stl Adenov F 40/41 PCR Not Detected Stool Astrovirus (PCR) Not Detected Stool Campylobacter PCR Not Detected Stool Cryptosporidium PCR Not Detected Stl Sh Tox Pr E STEC PCR Not Detected Stool E coli O157 PCR Not applicable Stl Enterotoxigenic E PCR Not Detected Stool EPEC (PCR) Not Detected Stool EAEC (PCR) Not Detected Stl E. histolytica PCR Not Detected Stool Giardia Lamblia PCR Not Detected Stl P. shigelloides PCR Not Detected Stool Salmonella PCR Not Detected Stool Sapovirus (PCR) Not Detected Stl Shigella/EIEC PCR Not Detected St Y.enterocolitica PCR Not Detected Stool Vibrio (PCR) Not Detected Stl Vibrio cholerae PCR Not Detected Stl Norovirus GI/GII PCR Not Detected IgA C. difficile Tox B Gene POSITIVE A* C. difficile Toxin A&B Negative C. difficile Interpret SEE NOTE Influenza Type A (PCR) Influenza Type B (PCR) RSV RNA Qual (PCR) SARS-CoV-2 RNA (RT-PCR) 05/04/22 05/05/22 05/05/22 19:31 06:24 06:24 WBC 8.9 RBC 3.87 L Hgb 12.1 L Hct 37.0 L MCV 95.6 MCH 31.3 MCHC 32.7 RDW 15.3 Plt Count 155 L MPV 11.2 Immature Gran % (Auto) Neut % (Auto) Lymph % (Auto) [place] % (Auto) Eos % (Auto) Baso % (Auto) Lymph # (Auto) [place] # (Auto) Eos # (Auto) Baso # (Auto) Abs Immat Gran (auto) Absolute Neuts (auto) Absolute Nucleated RBC 0.000 Nucleated RBC % (auto) 0.0 PT INR D-Dimer High Sensitivty VBG pH VBG pCO2 VBG pO2 VBG HCO3 VBG O2 Saturation VBG Base Excess Sodium 141 Potassium 5.0 Chloride 107 Carbon Dioxide 23 Anion Gap 16 BUN 51 H Creatinine 1.87 H Estim Creat Clear Calc 61.2 Estimated GFR 36 POC Glucose 204 H Random Glucose Fasting Glucose 195 H Lactic Acid Calcium 8.1 L Phosphorus Magnesium Total Bilirubin Direct Bilirubin AST ALT Alkaline Phosphatase Troponin I High Sens Total Protein Albumin Urine Color Urine Appearance Urine pH Ur Specific [place] Urine Protein Urine Glucose (UA) Urine Ketones Urine Blood Urine Nitrite Ur Leukocyte Esterase Urine RBC Urine WBC Ur Squamous Epith Cells Urine Bacteria Hyaline Casts Granular Casts Stl C. cayetanensis PCR Stool Rotavirus A PCR Stl Adenov F 40/41 PCR Stool Astrovirus (PCR) Stool Campylobacter PCR Stool Cryptosporidium PCR Stl Sh Tox Pr E STEC PCR Stool E coli O157 PCR Stl Enterotoxigenic E PCR Stool EPEC (PCR) Stool EAEC (PCR) Stl E. histolytica PCR Stool Giardia Lamblia PCR Stl P. shigelloides PCR Stool Salmonella PCR Stool Sapovirus (PCR) Stl Shigella/EIEC PCR St Y.enterocolitica PCR Stool Vibrio (PCR) Stl Vibrio cholerae PCR Stl Norovirus GI/GII PCR IgA C. difficile Tox B Gene C. difficile Toxin A&B C. difficile Interpret Influenza Type A (PCR) Influenza Type B (PCR) RSV RNA Qual (PCR) SARS-CoV-2 RNA (RT-PCR) 05/05/22 05/05/22 05/05/22 07:19 10:53 15:52 WBC RBC Hgb Hct MCV MCH MCHC RDW Plt Count MPV Immature Gran % (Auto) Neut % (Auto) Lymph % (Auto) [place] % (Auto) Eos % (Auto) Baso % (Auto) Lymph # (Auto) [place] # (Auto) Eos # (Auto) Baso # (Auto) Abs Immat Gran (auto) Absolute Neuts (auto) Absolute Nucleated RBC Nucleated RBC % (auto) PT INR D-Dimer High Sensitivty VBG pH VBG pCO2 VBG pO2 VBG HCO3 VBG O2 Saturation VBG Base Excess Sodium Potassium Chloride Carbon Dioxide Anion Gap BUN Creatinine Estim Creat Clear Calc Estimated GFR POC Glucose 187 H 204 H 194 H Random Glucose Fasting Glucose Lactic Acid Calcium Phosphorus Magnesium Total Bilirubin Direct Bilirubin AST ALT Alkaline Phosphatase Troponin I High Sens Total Protein Albumin Urine Color Urine Appearance Urine pH Ur Specific [place] Urine Protein Urine Glucose (UA) Urine Ketones Urine Blood Urine Nitrite Ur Leukocyte Esterase Urine RBC Urine WBC Ur Squamous Epith Cells Urine Bacteria Hyaline Casts Granular Casts Stl C. cayetanensis PCR Stool Rotavirus A PCR Stl Adenov F 40/ PCR Stool Astrovirus (PCR) Stool Campylobacter PCR Stool Cryptosporidium PCR Stl Sh Tox Pr E STEC PCR Stool E coli O157 PCR Stl Enterotoxigenic E PCR Stool EPEC (PCR) Stool EAEC (PCR) Stl E. histolytica PCR Stool Giardia Lamblia PCR Stl P. shigelloides PCR Stool Salmonella PCR Stool Sapovirus (PCR) Stl Shigella/EIEC PCR St Y.enterocolitica PCR Stool Vibrio (PCR) Stl Vibrio cholerae PCR Stl Norovirus GI/GII PCR IgA C. difficile Tox B Gene C. difficile Toxin A&B C. difficile Interpret Influenza Type A (PCR) Influenza Type B (PCR) RSV RNA Qual (PCR) SARS-CoV-2 RNA (RT-PCR) 05/05/22 05/06/22 05/06/22 19:25 06:56 06:56 WBC 9.4 RBC 3.85 L Hgb 11.7 L Hct 36.3 L MCV 94.3 MCH 30.4 MCHC 32.2 RDW 15.1 Plt Count 153 L MPV 11.4 Immature Gran % (Auto) Neut % (Auto) Lymph % (Auto) [place] % (Auto) Eos % (Auto) Baso % (Auto) Lymph # (Auto) [place] # (Auto) Eos # (Auto) Baso # (Auto) Abs Immat Gran (auto) Absolute Neuts (auto) Absolute Nucleated RBC 0.000 Nucleated RBC % (auto) 0.0 PT INR D-Dimer High Sensitivty VBG pH VBG pCO2 VBG pO2 VBG HCO3 VBG O2 Saturation VBG Base Excess Sodium 140 Potassium 4.5 Chloride 106 Carbon Dioxide 22 Anion Gap 17 BUN 37 H Creatinine 1.46 H Estim Creat Clear Calc 78.5 Estimated GFR 48 POC Glucose 215 H Random Glucose Fasting Glucose 157 H Lactic Acid Calcium 8.2 L Phosphorus Magnesium Total Bilirubin Direct Bilirubin AST ALT Alkaline Phosphatase Troponin I High Sens Total Protein Albumin Urine Color Urine Appearance Urine pH Ur Specific [place] Urine Protein Urine Glucose (UA) Urine Ketones Urine Blood Urine Nitrite Ur Leukocyte Esterase Urine RBC Urine WBC Ur Squamous Epith Cells Urine Bacteria Hyaline Casts Granular Casts Stl C. cayetanensis PCR Stool Rotavirus A PCR Stl Adenov F 40/41 PCR Stool Astrovirus (PCR) Stool Campylobacter PCR Stool Cryptosporidium PCR Stl Sh Tox Pr E STEC PCR Stool E coli O157 PCR Stl Enterotoxigenic E PCR Stool EPEC (PCR) Stool EAEC (PCR) Stl E. histolytica PCR Stool Giardia Lamblia PCR Stl P. shigelloides PCR Stool Salmonella PCR Stool Sapovirus (PCR) Stl Shigella/EIEC PCR St Y.enterocolitica PCR Stool Vibrio (PCR) Stl Vibrio cholerae PCR Stl Norovirus GI/GII PCR IgA C. difficile Tox B Gene C. difficile Toxin A&B C. difficile Interpret Influenza Type A (PCR) Influenza Type B (PCR) RSV RNA Qual (PCR) SARS-CoV-2 RNA (RT-PCR) 05/06/22 05/06/22 05/06/22 07:28 11:25 16:09 WBC RBC Hgb Hct MCV MCH MCHC RDW Plt Count MPV Immature Gran % (Auto) Neut % (Auto) Lymph % (Auto) [place] % (Auto) Eos % (Auto) Baso % (Auto) Lymph # (Auto) [place] # (Auto) Eos # (Auto) Baso # (Auto) Abs Immat Gran (auto) Absolute Neuts (auto) Absolute Nucleated RBC Nucleated RBC % (auto) PT INR D-Dimer High Sensitivty VBG pH VBG pCO2 VBG pO2 VBG HCO3 VBG O2 Saturation VBG Base Excess Sodium Potassium Chloride Carbon Dioxide Anion Gap BUN Creatinine Estim Creat Clear Calc Estimated GFR POC Glucose 143 H 167 H 192 H Random Glucose Fasting Glucose Lactic Acid Calcium Phosphorus Magnesium Total Bilirubin Direct Bilirubin AST ALT Alkaline Phosphatase Troponin I High Sens Total Protein Albumin Urine Color Urine Appearance Urine pH Ur Specific [place] Urine Protein Urine Glucose (UA) Urine Ketones Urine Blood Urine Nitrite Ur Leukocyte Esterase Urine RBC Urine WBC Ur Squamous Epith Cells Urine Bacteria Hyaline Casts Granular Casts Stl C. cayetanensis PCR Stool Rotavirus A PCR Stl Adenov F PCR Stool Astrovirus (PCR) Stool Campylobacter PCR Stool Cryptosporidium PCR Stl Sh Tox Pr E STEC PCR Stool E coli O157 PCR Stl Enterotoxigenic E PCR Stool EPEC (PCR) Stool EAEC (PCR) Stl E. histolytica PCR Stool Giardia Lamblia PCR Stl P. shigelloides PCR Stool Salmonella PCR Stool Sapovirus (PCR) Stl Shigella/EIEC PCR St Y.enterocolitica PCR Stool Vibrio (PCR) Stl Vibrio cholerae PCR Stl Norovirus GI/GII PCR IgA C. difficile Tox B Gene C. difficile Toxin A&B C. difficile Interpret Influenza Type A (PCR) Influenza Type B (PCR) RSV RNA Qual (PCR) SARS-CoV-2 RNA (RT-PCR) 05/06/22 05/07/22 05/07/22 19:21 06:53 06:53 WBC 9.1 RBC 3.93 L Hgb 11.8 L Hct 37.2 L MCV 94.7 MCH 30.0 MCHC 31.7 RDW 14.7 Plt Count 145 L MPV 11.3 Immature Gran % (Auto) Neut % (Auto) Lymph % (Auto) [place] % (Auto) Eos % (Auto) Baso % (Auto) Lymph # (Auto) [place] # (Auto) Eos # (Auto) Baso # (Auto) Abs Immat Gran (auto) Absolute Neuts (auto) Absolute Nucleated RBC 0.000 Nucleated RBC % (auto) 0.0 PT INR D-Dimer High Sensitivty VBG pH VBG pCO2 VBG pO2 VBG HCO3 VBG O2 Saturation VBG Base Excess Sodium Potassium Chloride Carbon Dioxide Anion Gap BUN Creatinine Estim Creat Clear Calc Estimated GFR POC Glucose 187 H Random Glucose Fasting Glucose Lactic Acid Calcium Phosphorus Magnesium Total Bilirubin Direct Bilirubin AST ALT Alkaline Phosphatase Troponin I High Sens Total Protein Albumin Urine Color Urine Appearance Urine pH Ur Specific [place] Urine Protein Urine Glucose (UA) Urine Ketones Urine Blood Urine Nitrite Ur Leukocyte Esterase Urine RBC Urine WBC Ur Squamous Epith Cells Urine Bacteria Hyaline Casts Granular Casts Stl C. cayetanensis PCR Stool Rotavirus A PCR Stl Adenov PCR Stool Astrovirus (PCR) Stool Campylobacter PCR Stool Cryptosporidium PCR Stl Sh Tox Pr E STEC PCR Stool E coli O157 PCR Stl Enterotoxigenic E PCR Stool EPEC (PCR) Stool EAEC (PCR) Stl E. histolytica PCR Stool Giardia Lamblia PCR Stl P. shigelloides PCR Stool Salmonella PCR Stool Sapovirus (PCR) Stl Shigella/EIEC PCR St Y.enterocolitica PCR Stool Vibrio (PCR) Stl Vibrio cholerae PCR Stl Norovirus GI/GII PCR IgA 96 C. difficile Tox B Gene C. difficile Toxin A&B C. difficile Interpret Influenza Type A (PCR) Influenza Type B (PCR) RSV RNA Qual (PCR) SARS-CoV-2 RNA (RT-PCR) 05/07/22 05/07/22 05/07/22 06:53 08:08 11:31 WBC RBC Hgb Hct MCV MCH MCHC RDW Plt Count MPV Immature Gran % (Auto) Neut % (Auto) Lymph % (Auto) [place] % (Auto) Eos % (Auto) Baso % (Auto) Lymph # (Auto) [place] # (Auto) Eos # (Auto) Baso # (Auto) Abs Immat Gran (auto) Absolute Neuts (auto) Absolute Nucleated RBC Nucleated RBC % (auto) PT INR D-Dimer High Sensitivty VBG pH VBG pCO2 VBG pO2 VBG HCO3 VBG O2 Saturation VBG Base Excess Sodium 140 Potassium 4.7 Chloride 105 Carbon Dioxide 25 Anion Gap 15 BUN 35 H Creatinine 1.51 H Estim Creat Clear Calc 76.1 Estimated GFR 46 POC Glucose 184 H 212 H Random Glucose Fasting Glucose 161 H Lactic Acid Calcium 8.4 Phosphorus Magnesium Total Bilirubin Direct Bilirubin AST ALT Alkaline Phosphatase Troponin I High Sens Total Protein Albumin Urine Color Urine Appearance Urine pH Ur Specific [place] Urine Protein Urine Glucose (UA) Urine Ketones Urine Blood Urine Nitrite Ur Leukocyte Esterase Urine RBC Urine WBC Ur Squamous Epith Cells Urine Bacteria Hyaline Casts Granular Casts Stl C. cayetanensis PCR Stool Rotavirus A PCR Stl Adenov F 40/41 PCR Stool Astrovirus (PCR) Stool Campylobacter PCR Stool Cryptosporidium PCR Stl Sh Tox Pr E STEC PCR Stool E coli O157 PCR Stl Enterotoxigenic E PCR Stool EPEC (PCR) Stool EAEC (PCR) Stl E. histolytica PCR Stool Giardia Lamblia PCR Stl P. shigelloides PCR Stool Salmonella PCR Stool Sapovirus (PCR) Stl Shigella/EIEC PCR St Y.enterocolitica PCR Stool Vibrio (PCR) Stl Vibrio cholerae PCR Stl Norovirus GI/GII PCR IgA C. difficile Tox B Gene C. difficile Toxin A&B C. difficile Interpret Influenza Type A (PCR) Influenza Type B (PCR) RSV RNA Qual (PCR) SARS-CoV-2 RNA (RT-PCR) 05/07/22 05/07/22 05/08/22 16:04 20:44 05:52 WBC 8.8 RBC 3.73 L Hgb 11.4 L Hct 35.5 L MCV 95.2 MCH 30.6 MCHC 32.1 RDW 14.7 Plt Count 144 L MPV 11.5 Immature Gran % (Auto) Neut % (Auto) Lymph % (Auto) [place] % (Auto) Eos % (Auto) Baso % (Auto) Lymph # (Auto) [place] # (Auto) Eos # (Auto) Baso # (Auto) Abs Immat Gran (auto) Absolute Neuts (auto) Absolute Nucleated RBC 0.000 Nucleated RBC % (auto) 0.0 PT INR D-Dimer High Sensitivty VBG pH VBG pCO2 VBG pO2 VBG HCO3 VBG O2 Saturation VBG Base Excess Sodium Potassium Chloride Carbon Dioxide Anion Gap BUN Creatinine Estim Creat Clear Calc Estimated GFR POC Glucose 125 H 170 H Random Glucose Fasting Glucose Lactic Acid Calcium Phosphorus Magnesium Total Bilirubin Direct Bilirubin AST ALT Alkaline Phosphatase Troponin I High Sens Total Protein Albumin Urine Color Urine Appearance Urine pH Ur Specific [place] Urine Protein Urine Glucose (UA) Urine Ketones Urine Blood Urine Nitrite Ur Leukocyte Esterase Urine RBC Urine WBC Ur Squamous Epith Cells Urine Bacteria Hyaline Casts Granular Casts Stl C. cayetanensis PCR Stool Rotavirus A PCR Stl Adenov F 40/41 PCR Stool Astrovirus (PCR) Stool Campylobacter PCR Stool Cryptosporidium PCR Stl Sh Tox Pr E STEC PCR Stool E coli O157 PCR Stl Enterotoxigenic E PCR Stool EPEC (PCR) Stool EAEC (PCR) Stl E. histolytica PCR Stool Giardia Lamblia PCR Stl P. shigelloides PCR Stool Salmonella PCR Stool Sapovirus (PCR) Stl Shigella/EIEC PCR St Y.enterocolitica PCR Stool Vibrio (PCR) Stl Vibrio cholerae PCR Stl Norovirus GI/GII PCR IgA C. difficile Tox B Gene C. difficile Toxin A&B C. difficile Interpret Influenza Type A (PCR) Influenza Type B (PCR) RSV RNA Qual (PCR) SARS-CoV-2 RNA (RT-PCR) 05/08/22 05/08/22 05/08/22 05:52 07:30 11:07 WBC RBC Hgb Hct MCV MCH MCHC RDW Plt Count MPV Immature Gran % (Auto) Neut % (Auto) Lymph % (Auto) [place] % (Auto) Eos % (Auto) Baso % (Auto) Lymph # (Auto) [place] # (Auto) Eos # (Auto) Baso # (Auto) Abs Immat Gran (auto) Absolute Neuts (auto) Absolute Nucleated RBC Nucleated RBC % (auto) PT INR D-Dimer High Sensitivty VBG pH VBG pCO2 VBG pO2 VBG HCO3 VBG O2 Saturation VBG Base Excess Sodium 139 Potassium 4.6 Chloride 105 Carbon Dioxide 22 Anion Gap 17 BUN 35 H Creatinine 1.45 H Estim Creat Clear Calc 79.3 Estimated GFR 48 POC Glucose 146 H 182 H Random Glucose Fasting Glucose 124 H Lactic Acid Calcium 8.5 Phosphorus Magnesium Total Bilirubin Direct Bilirubin AST ALT Alkaline Phosphatase Troponin I High Sens Total Protein Albumin Urine Color Urine Appearance Urine pH Ur Specific [place] Urine Protein Urine Glucose (UA) Urine Ketones Urine Blood Urine Nitrite Ur Leukocyte Esterase Urine RBC Urine WBC Ur Squamous Epith Cells Urine Bacteria Hyaline Casts Granular Casts Stl C. cayetanensis PCR Stool Rotavirus A PCR Stl Adenov F 40/41 PCR Stool Astrovirus (PCR) Stool Campylobacter PCR Stool Cryptosporidium PCR Stl Sh Tox Pr E STEC PCR Stool E coli O157 PCR Stl Enterotoxigenic E PCR Stool EPEC (PCR) Stool EAEC (PCR) Stl E. histolytica PCR Stool Giardia Lamblia PCR Stl P. shigelloides PCR Stool Salmonella PCR Stool Sapovirus (PCR) Stl Shigella/EIEC PCR St Y.enterocolitica PCR Stool Vibrio (PCR) Stl Vibrio cholerae PCR Stl Norovirus GI/GII PCR IgA C. difficile Tox B Gene C. difficile Toxin A&B C. difficile Interpret Influenza Type A (PCR) Influenza Type B (PCR) RSV RNA Qual (PCR) SARS-CoV-2 RNA (RT-PCR) 05/08/22 05/08/22 05/09/22 16:04 20:42 07:12 WBC 15.4 H RBC 3.89 L Hgb 11.9 L Hct 37.1 L MCV 95.4 MCH 30.6 MCHC 32.1 RDW 14.6 Plt Count 159 L MPV 11.8 Immature Gran % (Auto) Neut % (Auto) Lymph % (Auto) [place] % (Auto) Eos % (Auto) Baso % (Auto) Lymph # (Auto) [place] # (Auto) Eos # (Auto) Baso # (Auto) Abs Immat Gran (auto) Absolute Neuts (auto) Absolute Nucleated RBC 0.000 Nucleated RBC % (auto) 0.0 PT INR D-Dimer High Sensitivty VBG pH VBG pCO2 VBG pO2 VBG HCO3 VBG O2 Saturation VBG Base Excess Sodium Potassium Chloride Carbon Dioxide Anion Gap BUN Creatinine Estim Creat Clear Calc Estimated GFR POC Glucose 180 H 210 H Random Glucose Fasting Glucose Lactic Acid Calcium Phosphorus Magnesium Total Bilirubin Direct Bilirubin AST ALT Alkaline Phosphatase Troponin I High Sens Total Protein Albumin Urine Color Urine Appearance Urine pH Ur Specific [place] Urine Protein Urine Glucose (UA) Urine Ketones Urine Blood Urine Nitrite Ur Leukocyte Esterase Urine RBC Urine WBC Ur Squamous Epith Cells Urine Bacteria Hyaline Casts Granular Casts Stl C. cayetanensis PCR Stool Rotavirus A PCR Stl Adenov F 40/41 PCR Stool Astrovirus (PCR) Stool Campylobacter PCR Stool Cryptosporidium PCR Stl Sh Tox Pr E STEC PCR Stool E coli O157 PCR Stl Enterotoxigenic E PCR Stool EPEC (PCR) Stool EAEC (PCR) Stl E. histolytica PCR Stool Giardia Lamblia PCR Stl P. shigelloides PCR Stool Salmonella PCR Stool Sapovirus (PCR) Stl Shigella/EIEC PCR St Y.enterocolitica PCR Stool Vibrio (PCR) Stl Vibrio cholerae PCR Stl Norovirus GI/GII PCR IgA C. difficile Tox B Gene C. difficile Toxin A&B C. difficile Interpret Influenza Type A (PCR) Influenza Type B (PCR) RSV RNA Qual (PCR) SARS-CoV-2 RNA (RT-PCR) 05/09/22 05/09/22 05/09/22 07:12 07:13 09:35 WBC RBC Hgb Hct MCV MCH MCHC RDW Plt Count MPV Immature Gran % (Auto) Neut % (Auto) Lymph % (Auto) [place] % (Auto) Eos % (Auto) Baso % (Auto) Lymph # (Auto) [place] # (Auto) Eos # (Auto) Baso # (Auto) Abs Immat Gran (auto) Absolute Neuts (auto) Absolute Nucleated RBC Nucleated RBC % (auto) PT INR D-Dimer High Sensitivty VBG pH VBG pCO2 VBG pO2 VBG HCO3 VBG O2 Saturation VBG Base Excess Sodium 137 Potassium 5.4 H Chloride 103 Carbon Dioxide 23 Anion Gap 16 BUN 36 H Creatinine 1.52 H Estim Creat Clear Calc 75.6 Estimated GFR 45 POC Glucose 209 H Random Glucose Fasting Glucose 217 H Lactic Acid Calcium 8.6 Phosphorus Magnesium Total Bilirubin Direct Bilirubin AST ALT Alkaline Phosphatase Troponin I High Sens 19.8 Total Protein Albumin Urine Color Urine Appearance Urine pH Ur Specific [place] Urine Protein Urine Glucose (UA) Urine Ketones Urine Blood Urine Nitrite Ur Leukocyte Esterase Urine RBC Urine WBC Ur Squamous Epith Cells Urine Bacteria Hyaline Casts Granular Casts Stl C. cayetanensis PCR Stool Rotavirus A PCR Stl Adenov F 40/41 PCR Stool Astrovirus (PCR) Stool Campylobacter PCR Stool Cryptosporidium PCR Stl Sh Tox Pr E STEC PCR Stool E coli O157 PCR Stl Enterotoxigenic E PCR Stool EPEC (PCR) Stool EAEC (PCR) Stl E. histolytica PCR Stool Giardia Lamblia PCR Stl P. shigelloides PCR Stool Salmonella PCR Stool Sapovirus (PCR) Stl Shigella/EIEC PCR St Y.enterocolitica PCR Stool Vibrio (PCR) Stl Vibrio cholerae PCR Stl Norovirus GI/GII PCR IgA C. difficile Tox B Gene C. difficile Toxin A&B C. difficile Interpret Influenza Type A (PCR) Influenza Type B (PCR) RSV RNA Qual (PCR) SARS-CoV-2 RNA (RT-PCR) 05/09/22 05/09/22 05/09/22 09:35 11:31 14:52 WBC RBC Hgb Hct MCV MCH MCHC RDW Plt Count MPV Immature Gran % (Auto) Neut % (Auto) Lymph % (Auto) [place] % (Auto) Eos % (Auto) Baso % (Auto) Lymph # (Auto) [place] # (Auto) Eos # (Auto) Baso # (Auto) Abs Immat Gran (auto) Absolute Neuts (auto) Absolute Nucleated RBC Nucleated RBC % (auto) PT INR D-Dimer High Sensitivty 347 VBG pH VBG pCO2 VBG pO2 VBG HCO3 VBG O2 Saturation VBG Base Excess Sodium Potassium Chloride Carbon Dioxide Anion Gap BUN Creatinine Estim Creat Clear Calc Estimated GFR POC Glucose 260 H 145 H Random Glucose Fasting Glucose Lactic Acid Calcium Phosphorus Magnesium Total Bilirubin Direct Bilirubin AST ALT Alkaline Phosphatase Troponin I High Sens Total Protein Albumin Urine Color Urine Appearance Urine pH Ur Specific [place] Urine Protein Urine Glucose (UA) Urine Ketones Urine Blood Urine Nitrite Ur Leukocyte Esterase Urine RBC Urine WBC Ur Squamous Epith Cells Urine Bacteria Hyaline Casts Granular Casts Stl C. cayetanensis PCR Stool Rotavirus A PCR Stl Adenov F 40/41 PCR Stool Astrovirus (PCR) Stool Campylobacter PCR Stool Cryptosporidium PCR Stl Sh Tox Pr E STEC PCR Stool E coli O157 PCR Stl Enterotoxigenic E PCR Stool EPEC (PCR) Stool EAEC (PCR) Stl E. histolytica PCR Stool Giardia Lamblia PCR Stl P. shigelloides PCR Stool Salmonella PCR Stool Sapovirus (PCR) Stl Shigella/EIEC PCR St Y.enterocolitica PCR Stool Vibrio (PCR) Stl Vibrio cholerae PCR Stl Norovirus GI/GII PCR IgA C. difficile Tox B Gene C. difficile Toxin A&B C. difficile Interpret Influenza Type A (PCR) Influenza Type B (PCR) RSV RNA Qual (PCR) SARS-CoV-2 RNA (RT-PCR) 05/09/22 05/09/22 05/10/22 19:34 20:30 06:21 WBC 13.7 H RBC 3.86 L Hgb 11.8 L Hct 36.6 L MCV 94.8 MCH 30.6 MCHC 32.2 RDW 14.6 Plt Count 156 L MPV 11.4 Immature Gran % (Auto) Neut % (Auto) Lymph % (Auto) [place] % (Auto) Eos % (Auto) Baso % (Auto) Lymph # (Auto) [place] # (Auto) Eos # (Auto) Baso # (Auto) Abs Immat Gran (auto) Absolute Neuts (auto) Absolute Nucleated RBC 0.000 Nucleated RBC % (auto) 0.0 PT INR D-Dimer High Sensitivty VBG pH VBG pCO2 VBG pO2 VBG HCO3 VBG O2 Saturation VBG Base Excess Sodium Potassium Chloride Carbon Dioxide Anion Gap BUN Creatinine Estim Creat Clear Calc Estimated GFR POC Glucose 202 H Random Glucose Fasting Glucose Lactic Acid Calcium Phosphorus Magnesium Total Bilirubin Direct Bilirubin AST ALT Alkaline Phosphatase Troponin I High Sens Total Protein Albumin Urine Color Yellow Urine Appearance Cloudy Urine pH 6.0 Ur Specific [place] 1.025 Urine Protein 100 (2+) H Urine Glucose (UA) Negative Urine Ketones Negative Urine Blood Moderate (2+) H Urine Nitrite Negative Ur Leukocyte Esterase Large (3+) H Urine RBC 6-10 H Urine WBC >50 H Ur Squamous Epith Cells 3-5 Urine Bacteria 4+ Hyaline Casts 11-20 Granular Casts Present Stl C. cayetanensis PCR Stool Rotavirus A PCR Stl Adenov PCR Stool Astrovirus (PCR) Stool Campylobacter PCR Stool Cryptosporidium PCR Stl Sh Tox Pr E STEC PCR Stool E coli O157 PCR Stl Enterotoxigenic E PCR Stool EPEC (PCR) Stool EAEC (PCR) Stl E. histolytica PCR Stool Giardia Lamblia PCR Stl P. shigelloides PCR Stool Salmonella PCR Stool Sapovirus (PCR) Stl Shigella/EIEC PCR St Y.enterocolitica PCR Stool Vibrio (PCR) Stl Vibrio cholerae PCR Stl Norovirus GI/GII PCR IgA C. difficile Tox B Gene C. difficile Toxin A&B C. difficile Interpret Influenza Type A (PCR) Influenza Type B (PCR) RSV RNA Qual (PCR) SARS-CoV-2 RNA (RT-PCR) 05/10/22 05/10/22 05/10/22 06:21 06:21 07:25 WBC RBC Hgb Hct MCV MCH MCHC RDW Plt Count MPV Immature Gran % (Auto) Neut % (Auto) Lymph % (Auto) [place] % (Auto) Eos % (Auto) Baso % (Auto) Lymph # (Auto) [place] # (Auto) Eos # (Auto) Baso # (Auto) Abs Immat Gran (auto) Absolute Neuts (auto) Absolute Nucleated RBC Nucleated RBC % (auto) PT 15.4 H INR 1.3 H D-Dimer High Sensitivty VBG pH VBG pCO2 VBG pO2 VBG HCO3 VBG O2 Saturation VBG Base Excess Sodium 138 Potassium 5.0 Chloride 103 Carbon Dioxide 19 L Anion Gap 21 H BUN 36 H Creatinine 1.63 H Estim Creat Clear Calc 70.5 Estimated GFR 42 POC Glucose 161 H Random Glucose Fasting Glucose 148 H Lactic Acid Calcium 8.3 L Phosphorus Magnesium Total Bilirubin Direct Bilirubin AST ALT Alkaline Phosphatase Troponin I High Sens Total Protein Albumin Urine Color Urine Appearance Urine pH Ur Specific [place] Urine Protein Urine Glucose (UA) Urine Ketones Urine Blood Urine Nitrite Ur Leukocyte Esterase Urine RBC Urine WBC Ur Squamous Epith Cells Urine Bacteria Hyaline Casts Granular Casts Stl C. cayetanensis PCR Stool Rotavirus A PCR Stl Adenov PCR Stool Astrovirus (PCR) Stool Campylobacter PCR Stool Cryptosporidium PCR Stl Sh Tox Pr E STEC PCR Stool E coli O157 PCR Stl Enterotoxigenic E PCR Stool EPEC (PCR) Stool EAEC (PCR) Stl E. histolytica PCR Stool Giardia Lamblia PCR Stl P. shigelloides PCR Stool Salmonella PCR Stool Sapovirus (PCR) Stl Shigella/EIEC PCR St Y.enterocolitica PCR Stool Vibrio (PCR) Stl Vibrio cholerae PCR Stl Norovirus GI/GII PCR IgA C. difficile Tox B Gene C. difficile Toxin A&B C. difficile Interpret Influenza Type A (PCR) Influenza Type B (PCR) RSV RNA Qual (PCR) SARS-CoV-2 RNA (RT-PCR) 05/10/22 11:12 WBC RBC Hgb Hct MCV MCH MCHC RDW Plt Count MPV Immature Gran % (Auto) Neut % (Auto) Lymph % (Auto) [place] % (Auto) Eos % (Auto) Baso % (Auto) Lymph # (Auto) [place] # (Auto) Eos # (Auto) Baso # (Auto) Abs Immat Gran (auto) Absolute Neuts (auto) Absolute Nucleated RBC Nucleated RBC % (auto) PT INR D-Dimer High Sensitivty VBG pH VBG pCO2 VBG pO2 VBG HCO3 VBG O2 Saturation VBG Base Excess Sodium Potassium Chloride Carbon Dioxide Anion Gap BUN Creatinine Estim Creat Clear Calc Estimated GFR POC Glucose 145 H Random Glucose Fasting Glucose Lactic Acid Calcium Phosphorus Magnesium Total Bilirubin Direct Bilirubin AST ALT Alkaline Phosphatase Troponin I High Sens Total Protein Albumin Urine Color Urine Appearance Urine pH Ur Specific [place] Urine Protein Urine Glucose (UA) Urine Ketones Urine Blood Urine Nitrite Ur Leukocyte Esterase Urine RBC Urine WBC Ur Squamous Epith Cells Urine Bacteria Hyaline Casts Granular Casts Stl C. cayetanensis PCR Stool Rotavirus A PCR Stl Adenov F 40/41 PCR Stool Astrovirus (PCR) Stool Campylobacter PCR Stool Cryptosporidium PCR Stl Sh Tox Pr E STEC PCR Stool E coli O157 PCR Stl Enterotoxigenic E PCR Stool EPEC (PCR) Stool EAEC (PCR) Stl E. histolytica PCR Stool Giardia Lamblia PCR Stl P. shigelloides PCR Stool Salmonella PCR Stool Sapovirus (PCR) Stl Shigella/EIEC PCR St Y.enterocolitica PCR Stool Vibrio (PCR) Stl Vibrio cholerae PCR Stl Norovirus GI/GII PCR IgA C. difficile Tox B Gene C. difficile Toxin A&B C. difficile Interpret Influenza Type A (PCR) Influenza Type B (PCR) RSV RNA Qual (PCR) SARS-CoV-2 RNA (RT-PCR) Airway Mallampati Class: IV Neck ROM: Full Loose/Missing/Broken Teeth: Yes Heart: Irregular Lungs: distant breath sounds Assessment and Plan Assessment Anesthesia Assessment: Anesthesia Plan Discussed and Chart Reviewed Final Anesthetic Review Family History of Problems with Anesthesia: No History of Problems with Anesthesia: No NPO: Yes ASA Class: III Final Preanesthetic Review: Meds/Allgs Chart Reviewed, Consent Obtained/Reviewed and Anes Risks/Benef Reviewed Patient Risk: High Procedure Risk: Intermediate Anesthetic Plan Anesthetic Plan: MAC: Disposition: Standard PACU
[2022-05-10] MEDS: Lactated Ringers 1,000 ML 50 ML IVCONT (13:29)
--- NOTE | 2022-05-10 13:53 | MHC.SHP ---
Pre-Procedural Eval Section A Date of Service: 05/10/22 The patient is an INPATIENT: Yes Changes since office visit: No Cold of Flu in the past 2 weeks, No New Medical Problems, No Changes in Medication and No Patient answered all questions The History & Physical has been completed within 30 days and I have reviewed it.: Yes Section B Chief Complaint: acute renal failure/hyperkalemia Allergies: Allergies Allergy/AdvReac Type Severity Reaction Status Date / Time Penicillins AdvReac Intermediate HALLUCINATIONS, Verified 04/08/21 15:49 SWEATS Plan I have reviewed the history and physical and performed a pertinent physical examination on my patient. No changes have occurred unless specified. Time Spent With Patient Time: Total time managing care of this patient today ____ minutes.
--- NOTE | 2022-05-10 14:34 | PM.OP ---
Brief Operative Note Date of Service: 05/10/22 Pre-op diagnosis: diarrhea Post-op diagnosis: same Procedure: colonoscopy Surgeon: Mayank Lange Anesthesia: MAC Was an Hand Braille Transcriber used for this Procedure?: No Estimated blood loss (mL): 5 Pathology: other Condition: stable Disposition: PACU
--- NOTE | 2022-05-10 14:37 | PM.EVENT ---
Event Note Date of Service: 05/10/22 Event Note: Colonoscopy dictated No colitis seen, sigmoid bxs taken 3 under 10 mm polyps removed. Moderate diverticulosis. Ok to restart anticoagulation in am. rec: f/u bx results advance diet Time Spent With Patient Time: Total time managing care of this patient today ____ minutes.
[2022-05-10 15:52] LABS: Glucose, Whole Blood 136 mg/dL (60-115)
[2022-05-10] MEDS: Insulin Glargine,Hum.rec.anlog 100 UNIT/ML 10 ML VIAL 38 UNIT SUBCUT (17:52)
[2022-05-10 19:56] LABS: Glucose, Whole Blood 234 mg/dL (60-115)
[2022-05-10] MEDS: Tamsulosin HCL 0.4 MG CAPSULE PO (20:45)
[2022-05-10] MEDS: Insulin Lispro 100 UNIT/ML 3 ML VIAL SUBCUT (20:45)
[2022-05-10] MEDS: Ammonium Lactate 12 % Cream 140 GM TUBE 1 APPL TOPICAL (22:34)
--- NOTE | 2022-05-11 00:33 | OP_ITS ---
SURGEON: Mayank Lange MD INDICATIONS: Diarrhea. PREOPERATIVE DIAGNOSIS: POSTOPERATIVE DIAGNOSIS: PROCEDURE PERFORMED: Colonoscopy to the terminal ileum with biopsy and snare polypectomy. ESTIMATED BLOOD LOSS: COMPLICATIONS: ANESTHESIA: Monitored anesthesia care. ASSISTANTS: SPECIMENS: DESCRIPTION OF PROCEDURE: Date: 05/10/22. History and physical was performed. The risks and benefits of the procedure were explained to the patient. Informed consent was obtained. The patient was placed in the left lateral decubitus position. A digital rectal exam was performed and was found to be normal. The Olympus video colonoscope was introduced into the rectum and advanced to the cecum without difficulty. The cecum was identified by transillumination, palpation, and identification of ileocecal valve. Examination was performed and the scope was removed. He tolerated the procedure well, returned to recovery area in stable condition. FINDINGS: The terminal ileum was not examined. There was some stool in the right colon and cecum which limited the sensitivity examination for detection of small polyps. This was washed and suctioned as best possible. There was no evidence of colitis. There was moderate sigmoid diverticulosis with scattered diverticula throughout the remainder of the colon. Three polyps were removed. The first in the cecum measured less than 5 mm was removed with biopsy forceps. The right colon polyp, which appeared to be inflammatory polyp near diverticulum was removed with a cold snare. This measured approximately 6-7 mm and an 8-9 mm polyp was removed with a hot snare at 40 cm. The random sigmoid biopsies were obtained for microscopic examination. Retroflexed examination was normal. IMPRESSION: Colon polyps. RECOMMENDATION: Follow up the biopsy results. MD TOM Gasca/LORI / [id number] MTDD
[2022-05-11] MEDS: cefTRIAXone sodium 1 GM in 0.9 % Sodium Chloride 50 ML IV (01:42)
[2022-05-11] MEDS: vancomycin HCL 125 MG CAPSULE PO ×4 (02:06→23:16)
[2022-05-11 03:05] VITALS: BP 133/61; PULSE 74; RESP 14; TEMP 36.4; O2SAT 96
[2022-05-11] MEDS: Omeprazole 40 MG CAPSULE.DR PO (06:22)
[2022-05-11 07:12] VITALS: BP 127/68; PULSE 76; RESP 20; TEMP 36.6; O2SAT 99
[2022-05-11 07:18] LABS: Glucose, Whole Blood 144 mg/dL (60-115)
[2022-05-11 07:30] LABS: Hematocrit 34.7 % (42.0-52.0); Hemoglobin 11.3 g/dl (14.0-18.0); Mean Corpuscular HGB Conc 32.6 g/dl (31.0-36.0); Mean Corpuscular Volume 95.1 fL (80.0-98.0); Mean Platelet Volume 10.9 fL (9.4-12.4); Platelet Count 157 X10*3/uL (160-400); Red Blood Count 3.65 X10*6/uL (4.60-5.80); Red Cell Distribution Width 14.6 % (11.0-16.0); White Blood Count 11.4 X10*3/uL (4.8-10.8)
[2022-05-11 07:54] LABS: Anion Gap 18 (12-20); Blood Urea Nitrogen 35 mg/dL (9-16); Calcium 8.3 mg/dL (8.4-10.2); Carbon Dioxide 23 mmol/L (22-29); Chloride 104 mmol/L (96-108); Creatinine Clr Calc Pharmacy 66.5; Estimated Glomerular Filt Rate 39; Glucose Fasting 151 mg/dL (60-99); Potassium 4.9 mmol/L (3.3-5.1); Sodium 140 mmol/L (135-145)
[2022-05-11] MEDS: Atorvastatin Calcium 80 MG TABLET PO (07:55)
[2022-05-11] MEDS: Cyanocobalamin (Vitamin B-12) 100 MCG TABLET 200 MCG PO (07:55)
[2022-05-11] MEDS: Cholecalciferol (Vitamin D3) 25 MCG TABLET 50 MCG PO (07:55)
[2022-05-11] MEDS: Ascorbic Acid 500 MG TABLET 1000 MG PO ×2 (07:55→23:16)
[2022-05-11] MEDS: Ammonium Lactate 12 % Cream 140 GM TUBE 1 APPL TOPICAL ×2 (07:56→23:25)
[2022-05-11] MEDS: Nystatin Powder 15 GM BOTTLE 1 APPL TOPICAL ×2 (07:56→23:17)
[2022-05-11] MEDS: Apixaban 5 MG TABLET PO ×2 (09:48→23:16)
[2022-05-11 10:53] VITALS: BP 144/65; PULSE 72; RESP 20; TEMP 36.4; O2SAT 99
--- NOTE | 2022-05-11 11:18 | PM.PNNEP ---
Subjective Subjective Date of Service: 05/12/22 Interval history: Events noted s/p colonoscopy Physical Exam Vital Signs: Vital Signs: Last Vital Signs Temp 97.5 F 05/11/22 10:53 Pulse 72 05/11/22 10:53 Resp 20 05/11/22 10:53 BP 144/65 H 05/11/22 10:53 Pulse Ox 99 05/11/22 10:53 O2 Del Method 05/11/22 10:53 O2 Flow Rate 5 05/10/22 14:37 BMI result Body Mass Index 63.1 Const: General: no acute distress Orientation/consciousness: patient oriented x3 Eyes: EOM: EOMs intact bilaterally Neck: Neck: Yes supple Resp: Auscultation: diminished lung sounds Cardio: Rate: regular rate GI: Palpation (GI): Soft to palpation Neuro: General: patient oriented x3 and moves all extremities Objective Data Labs 05/11/22 07:22 05/11/22 07:22 Labs: Laboratory Results - last 24 hr 05/10/22 05/10/22 05/10/22 11:12 15:24 19:52 WBC RBC Hgb Hct MCV MCH MCHC RDW Plt Count MPV Absolute Nucleated RBC Nucleated RBC % (auto) Sodium Potassium Chloride Carbon Dioxide Anion Gap BUN Creatinine Estim Creat Clear Calc Estimated GFR POC Glucose 145 H 136 H 234 H Fasting Glucose Calcium 05/11/22 05/11/22 05/11/22 07:14 07:22 07:22 WBC 11.4 H RBC 3.65 L Hgb 11.3 L Hct 34.7 L MCV 95.1 MCH 31.0 MCHC 32.6 RDW 14.6 Plt Count 157 L MPV 10.9 Absolute Nucleated RBC 0.000 Nucleated RBC % (auto) 0.0 Sodium 140 Potassium 4.9 Chloride 104 Carbon Dioxide 23 Anion Gap 18 BUN 35 H Creatinine 1.73 H Estim Creat Clear Calc 66.5 Estimated GFR 39 POC Glucose 144 H Fasting Glucose 151 H Calcium 8.3 L Microbiology Microbiology Results: Microbiology 05/03/22 03:13 Blood - Venous Blood Culture - Final No growth after 5 days. 05/03/22 03:13 Blood - Venous Blood Culture - Final No growth after 5 days. 05/03/22 04:14 Urine clean catch - Urine scott top Urine Culture - Final Escherichia coli Procedures Date of Service Date of Service: 05/11/22 Assessment & Plan Assessment and plan (1) MARGOTH (acute kidney injury): Status: Acute Assessment and Plan: Mr. Geovanni Jimenez is a 71-year-old with a history of chronic afib, DM, CKD III (BL Cr 1.3-1.5mg/dL), HTN, gout, who presented with margoth and severe hyperakelmia, was treated in ICU with kayexlyate and sodium bicarbonate, potassium improved and patient downgraded to medical floor. GFR improved gradually with IVF support. MARGOTH on CKD III with severe hyperkalemia and metabolic acidosis Improved with Bicarb rich isotonic fluids GFR back to baseline Plan: - hold any Bart / ARBs / Aldactone. He is normotensive and has HyperK Lokelma 5 gm PO x prn fr K > 5.2 Low K diet - no current need for PO bicarb tablets; Watch tCO2 - c/w amlodipine 10mg for HTN - monitor labs daily Time Spent With Patient Time: Total time managing care of this patient today ____ minutes. Progress Note: Quality Stroke Does the patient have a stroke diagnosis?: No
[2022-05-11 11:41] LABS: Glucose, Whole Blood 185 mg/dL (60-115)
[2022-05-11] MEDS: Insulin Lispro 100 UNIT/ML 3 ML VIAL SUBCUT ×3 (11:46→23:16)
[2022-05-11] MEDS: amLODIPine Besylate 10 MG TABLET PO (11:46)
[2022-05-11] MEDS: Phenazopyridine HCL 200 MG TABLET PO ×2 (12:29→16:00)
--- NOTE | 2022-05-11 14:39 | HO.POSTANES ---
Post Anesthesia Evaluation Post Anesthesia Evaluation Vital Signs: Vital Signs Temp Pulse Resp BP Pulse Ox O2 Del Method 05/11/22 10:53 97.5 F 72 20 144/65 H 99 Room Air 05/11/22 07:12 97.9 F 76 20 127/68 99 Room Air 05/11/22 03:05 97.6 F 74 14 133/61 96 Room Air Anesthesia: Monitored Mental Status: Awake Pain Control: Satisfactory Nausea/Vomiting: None Hydration: Adequate Anesthesia-Related Issues: No Anes. Related Issues
[2022-05-11 15:16] VITALS: BP 142/67; PULSE 79; RESP 18; TEMP 36.6; O2SAT 97
--- NOTE | 2022-05-11 16:04 | HO.PM.IMPN ---
Subjective Subjective Date of Service: 05/11/22 Interval History: Complaining of burning sensation upon urination that did not improve Urine culture still pending No other overnight events Review of Systems Review of Systems: Yes all other systems are reviewed and are negative Physical Exam Vital Signs: Vital Signs: Last Vital Signs Temp 97.8 F 05/11/22 15:16 Pulse 79 05/11/22 15:16 Resp 18 05/11/22 15:16 BP 142/67 H 05/11/22 15:16 Pulse Ox 97 05/11/22 15:16 O2 Del Method 05/11/22 15:16 O2 Flow Rate 5 05/10/22 14:37 BMI result Body Mass Index 63.1 Const: Other: Constitutional : Awake, interactive, morbidly obese, not in distress Neck : Normal inspection, Supple Cardiovascular : RRR, no JVP, no lower extremity edema Respiratory : Fair bilateral air entry, no crackles, wheezes or rhonchi Gastrointestinal: soft, lax, Normal bowel sounds, Non tender Skin : Warm, Dry, chronic bilateral stasis dermatitis changes Neurological : Alert & oriented x3, No focal deficit Objective Data Active Medications Acetaminophen (Acetaminophen 325 Mg Tablet) 650 mg PO Q6H PRN PRN Reason: Pain, Mild (Pain Scale 1-3) Last Admin: 05/09/22 08:42 Dose: 650 mg Documented By: MARY Amlodipine Besylate (Amlodipine Besylate 10 Mg Tablet) 10 mg PO DAILY@1200 [facility]; Protocol Last Admin: 05/11/22 11:46 Dose: 10 mg Documented By: LINDA Apixaban (Apixaban 5 Mg Tablet) 5 mg PO BID [facility] Last Admin: 05/11/22 09:48 Dose: 5 mg Documented By: LINDA Ascorbic Acid (Ascorbic Acid 500 Mg Tablet) 1,000 mg PO BID [facility] Last Admin: 05/11/22 07:55 Dose: 1,000 mg Documented By: LINDA Atorvastatin Calcium (Atorvastatin Calcium 80 Mg Tablet) 80 mg PO DAILY [facility] Last Admin: 05/11/22 07:55 Dose: 80 mg Documented By: LINDA Cyanocobalamin (Cyanocobalamin (Vitamin B-12) 100 Mcg Tablet) 200 mcg PO DAILY [facility] Last Admin: 05/11/22 07:55 Dose: 200 mcg Documented By: LINDA Ceftriaxone Sodium 1 gm/ (Sodium Chloride) 50 mls @ 100 mls/hr IV Q24H [facility] Last Infusion: 05/11/22 02:13 Dose: 0 mls/hr Documented By: UMM Insulin Glargine (Insulin Glargine,Hum.Rec.Anlog 100 Unit/Ml 10 Ml Vial) 38 unit SUBCUT DAILY@1700 [facility] Last Admin: 05/10/22 17:52 Dose: 38 unit Documented By: PRICE Insulin Human Lispro (Insulin Lispro 100 Unit/Ml 3 Ml Vial) 0 unit SUBCUT QIDACHS [facility]; Protocol Last Admin: 05/11/22 11:46 Dose: 2 unit Documented By: LINDA Lactic Acid (Ammonium Lactate 12 % Cream 140 Gm Tube) 1 appl TOPICAL BID PRN; Protocol PRN Reason: Dry Skin Last Admin: 05/11/22 07:56 Dose: 1 appl Documented By: LINDA Loperamide HCl (Loperamide Hcl 2 Mg Capsule) 2 mg PO Q4H PRN PRN Reason: Diarrhea Morphine Sulfate (Morphine Sulfate 2 Mg/Ml Cartridge) 2 mg IVPUSH Q2H PRN; Protocol PRN Reason: moderate pain Last Admin: 05/10/22 03:46 Dose: 2 mg Documented By: KARISHMA Nystatin (Nystatin Powder 15 Gm Bottle) 1 appl TOPICAL BID [facility]; Protocol Last Admin: 05/11/22 07:56 Dose: 1 appl Documented By: LINDA Omeprazole (Omeprazole 40 Mg Capsule.) 40 mg PO DAILY@0630 [facility] Last Admin: 05/10/22 09:29 Dose: 40 mg Documented By: FRANK Pharmacy Consult (Consult Rx Perform Med Rec) 1 each MISCELLANE ONCE PRN PRN Reason: Consult order Phenazopyridine HCl (Phenazopyridine Hcl 200 Mg Tablet) 200 mg PO TIDWM [facility] Stop: 05/13/22 08:01 Last Admin: 05/11/22 12:29 Dose: 200 mg Documented By: LINDA Tamsulosin HCl (Tamsulosin Hcl 0.4 Mg Capsule) 0.4 mg PO BEDTIME [facility] Last Admin: 05/10/22 20:45 Dose: 0.4 mg Documented By: PRICE Vancomycin HCl (Vancomycin Hcl 125 Mg Capsule) 125 mg PO Q6H [facility] Last Admin: 05/11/22 07:55 Dose: 125 mg Documented By: LINDA Vitamin D (Cholecalciferol (Vitamin D3) 25 Mcg Tablet) 50 mcg PO DAILY [facility] Last Admin: 05/11/22 07:55 Dose: 50 mcg Documented By: LINDA Labs 05/11/22 07:22 05/11/22 07:22 Labs: Laboratory Results - last 24 hr 05/10/22 05/11/22 05/11/22 19:52 07:14 07:22 MCV 95.1 MCH 31.0 MCHC 32.6 RDW 14.6 Plt Count 157 L MPV 10.9 Absolute Nucleated RBC 0.000 Nucleated RBC % (auto) 0.0 Anion Gap Estim Creat Clear Calc Estimated GFR POC Glucose 234 H 144 H Fasting Glucose Calcium 05/11/22 05/11/22 07:22 10:55 MCV MCH MCHC RDW Plt Count MPV Absolute Nucleated RBC Nucleated RBC % (auto) Anion Gap 18 Estim Creat Clear Calc 66.5 Estimated GFR 39 POC Glucose 185 H Fasting Glucose 151 H Calcium 8.3 L Microbiology Microbiology Results: Microbiology 05/10/22 Unknown Urine Culture - Preliminary Urine clean catch - Urine scott top Gram negative waqar Assessment and Plan (1) JULY (acute kidney injury): Status: Acute (2) Metabolic acidosis: Status: Acute (3) Acute hyperkalemia: Status: Acute (4) Urinary tract infection: Status: Acute Plan 71M PMH chronic afib, DM, CKD III, HTN, gout, sent in for july and severe hyperakelmia, was treated in ICU with kayexlyate and sodium bicarbonate, potassium improved and patient downgraded to medical floor. JULY on CKD III with severe hyperkalemia and metabolic acidosis now at baseline creatinine, K bicarb improved nephrol following, ?hold any Bart / ARBs / Aldactone, Lokelma as needed for potassium of 5.2 above chest/ epigastric pain resolved Urine infection Pending final urine culture Continue with rocephin AZO for dysuria DM inuslin morbid obesity wegiht loss diarrhea stool pcr negative cdif colonizer only, but empirically treating with vanco po imodium gi appreciated, colonoscopy showed diverticulosis but no evidence of diverticulitis is, can start Eliquis chronic afib eliquis - on hold for colono htn amlodipine hold lisinopril hold aldactone dvt prophylaxis -continue Eliquis reason for continued hospitalization: Pending final cultures and safe discharge plan Time Spent With Patient Time: Total time managing care of this patient today ____ minutes. Quality Stroke Does the patient have a stroke diagnosis?: No VTE Prior VTE?: No VTE Risk Level:: Medical - moderate - high VTE Device Contraindication: N/A - Device Ordered VTE Drug Contraindication: N/A - Med Ordered
--- NOTE | 2022-05-11 16:13 | MHC.CM.PN ---
per rounds pt not ready for dc at [facility] time plan will be home no servceis
[2022-05-11 16:20] LABS: Glucose, Whole Blood 190 mg/dL (60-115)
[2022-05-11] MEDS: Insulin Glargine,Hum.rec.anlog 100 UNIT/ML 10 ML VIAL 38 UNIT SUBCUT (16:36)
[2022-05-11 20:00] VITALS: BP 134/68; PULSE 78; RESP 18; TEMP 37; O2SAT 98
[2022-05-11 20:17] LABS: Glucose, Whole Blood 243 mg/dL (60-115)
[2022-05-11 22:18] LABS: Gliadin Deamidated IgA Ab <1.0 U/mL; Gliadin Deamidated IgG Ab <1.0 U/mL; Transglutaminase Ab IgG 17.8 U/mL; Transglutaminase IgA <1.0 U/mL
[2022-05-11] MEDS: Tamsulosin HCL 0.4 MG CAPSULE PO (23:16)
[2022-05-11] MEDS: Morphine Sulfate 2 MG/ML CARTRIDGE IVPUSH (23:18)
[2022-05-12] VITALS (7 sets, daily range): BP systolic 113–147; BP diastolic 52–70; PULSE 61–76; RESP 15–20; TEMP 36–36.9; O2SAT 94–98
[2022-05-12] MEDS: cefTRIAXone sodium 1 GM in 0.9 % Sodium Chloride 50 ML IV (02:06)
[2022-05-12] MEDS: Omeprazole 40 MG CAPSULE.DR PO (06:29)
[2022-05-12] MEDS: vancomycin HCL 125 MG CAPSULE PO ×4 (06:29→20:43)
[2022-05-12 07:30] LABS: Anion Gap 17 (12-20); Blood Urea Nitrogen 39 mg/dL (9-16); Calcium 7.9 mg/dL (8.4-10.2); Carbon Dioxide 22 mmol/L (22-29); Chloride 104 mmol/L (96-108); Creatinine Clr Calc Pharmacy 69.7; Estimated Glomerular Filt Rate 41; Glucose Random 147 mg/dL (60-115); Potassium 4.6 mmol/L (3.3-5.1); Sodium 138 mmol/L (135-145)
[2022-05-12 07:53] LABS: Glucose, Whole Blood 143 mg/dL (60-115)
[2022-05-12] MEDS: Phenazopyridine HCL 200 MG TABLET PO ×3 (09:08→18:08)
[2022-05-12] MEDS: Cholecalciferol (Vitamin D3) 25 MCG TABLET 50 MCG PO (09:08)
[2022-05-12] MEDS: Ascorbic Acid 500 MG TABLET 1000 MG PO ×2 (09:08→20:43)
[2022-05-12] MEDS: Atorvastatin Calcium 80 MG TABLET PO (09:09)
[2022-05-12] MEDS: Nystatin Powder 15 GM BOTTLE 1 APPL TOPICAL ×2 (09:09→20:46)
[2022-05-12] MEDS: Cyanocobalamin (Vitamin B-12) 100 MCG TABLET 200 MCG PO (09:09)
[2022-05-12] MEDS: Apixaban 5 MG TABLET PO ×2 (09:09→20:43)
--- NOTE | 2022-05-12 11:15 | PM.PNNEP ---
Subjective Subjective Date of Service: 05/13/22 Interval history: No other overnight events Physical Exam Vital Signs: Vital Signs: Last Vital Signs Temp 97.6 F 05/12/22 07:56 Pulse 70 05/12/22 07:56 Resp 18 05/12/22 07:56 BP 128/64 05/12/22 07:56 Pulse Ox 94 05/12/22 07:56 O2 Del Method 05/12/22 03:33 O2 Flow Rate 5 05/10/22 14:37 BMI result Body Mass Index 63.1 Const: General: no acute distress Orientation/consciousness: patient oriented x3 Eyes: EOM: EOMs intact bilaterally Neck: Neck: Yes supple Resp: Auscultation: diminished lung sounds Cardio: Rate: regular rate GI: Palpation (GI): Soft to palpation Neuro: General: patient oriented x3 and moves all extremities Objective Data Labs 05/11/22 07:22 05/12/22 06:12 Labs: Laboratory Results - last 24 hr 05/07/22 05/11/22 05/11/22 06:53 10:55 16:11 Sodium Potassium Chloride Carbon Dioxide Anion Gap BUN Creatinine Estim Creat Clear Calc Estimated GFR POC Glucose 185 H 190 H Random Glucose Calcium Tiss Transglutamin IgG 17.8 H Tiss Transglutamin IgA <1.0 Anti-Gliadin IgG Ab <1.0 Gliadin (Deamidat) IgA <1.0 05/11/22 05/12/22 05/12/22 20:11 06:12 07:50 Sodium 138 Potassium 4.6 Chloride 104 Carbon Dioxide 22 Anion Gap 17 BUN 39 H Creatinine 1.65 H Estim Creat Clear Calc 69.7 Estimated GFR 41 POC Glucose 243 H 143 H Random Glucose 147 H Calcium 7.9 L Tiss Transglutamin IgG Tiss Transglutamin IgA Anti-Gliadin IgG Ab Gliadin (Deamidat) IgA Microbiology Microbiology Results: Microbiology 05/10/22 Unknown Urine clean catch - Urine scott top Urine Culture - Final Escherichia coli 05/03/22 03:13 Blood - Venous Blood Culture - Final No growth after 5 days. 05/03/22 03:13 Blood - Venous Blood Culture - Final No growth after 5 days. 05/03/22 04:14 Urine clean catch - Urine scott top Urine Culture - Final Escherichia coli Procedures Date of Service Date of Service: 05/12/22 Assessment & Plan Assessment and plan (1) MARGOTH (acute kidney injury): Status: Acute Assessment and Plan: Mr. Geovanni Jimenez is a 71-year-old with a history of chronic afib, DM, CKD III (BL Cr 1.3-1.5mg/dL), HTN, gout, who presented with margoth and severe hyperakelmia, was treated in ICU with kayexlyate and sodium bicarbonate, potassium improved and patient downgraded to medical floor. GFR improved gradually with IVF support. MARGOTH on CKD III with severe hyperkalemia and metabolic acidosis Improved with Bicarb rich isotonic fluids GFR back to baseline Plan: - hold any Bart / ARBs / Aldactone. Lokelma 5 gm PO x prn fr K > 5.2 Low K diet - no current need for PO bicarb tablets; Watch tCO2 - c/w amlodipine 10mg for HTN Ok to add a diuretic - was on Torsemide 20mg PO QD priir to admission Time Spent With Patient Time: Total time managing care of this patient today ____ minutes. Progress Note: Quality Stroke Does the patient have a stroke diagnosis?: No
[2022-05-12 11:29] LABS: Glucose, Whole Blood 200 mg/dL (60-115)
[2022-05-12] MEDS: amLODIPine Besylate 10 MG TABLET PO (11:51)
[2022-05-12] MEDS: Insulin Lispro 100 UNIT/ML 3 ML VIAL SUBCUT ×3 (11:52→20:43)
--- NOTE | 2022-05-12 14:28 | HO.PM.IMPN ---
Subjective Subjective Date of Service: 05/12/22 Interval History: Complaining of burning sensation upon urination that did not improve Urine culture growing ESBL E coli No other overnight events Review of Systems Review of Systems: Yes all other systems are reviewed and are negative Physical Exam Vital Signs: Vital Signs: Last Vital Signs Temp 98.4 F 05/12/22 12:00 Pulse 67 05/12/22 12:00 Resp 19 05/12/22 12:00 BP 115/52 L 05/12/22 12:00 Pulse Ox 98 05/12/22 12:00 O2 Del Method 05/12/22 12:00 O2 Flow Rate 5 05/10/22 14:37 BMI result Body Mass Index 63.1 Const: Other: Constitutional : Awake, interactive, morbidly obese, not in distress Neck : Normal inspection, Supple Cardiovascular : RRR, no JVP, no lower extremity edema Respiratory : Fair bilateral air entry, no crackles, wheezes or rhonchi Gastrointestinal: soft, lax, Normal bowel sounds, Non tender Skin : Warm, Dry, chronic bilateral stasis dermatitis changes Neurological : Alert & oriented x3, No focal deficit Objective Data Active Medications Acetaminophen (Acetaminophen 325 Mg Tablet) 650 mg PO Q6H PRN PRN Reason: Pain, Mild (Pain Scale 1-3) Last Admin: 05/09/22 08:42 Dose: 650 mg Documented By: MARY Amlodipine Besylate (Amlodipine Besylate 10 Mg Tablet) 10 mg PO DAILY@1200 [facility]; Protocol Last Admin: 05/12/22 11:51 Dose: 10 mg Documented By: CARLITO Apixaban (Apixaban 5 Mg Tablet) 5 mg PO BID [facility] Last Admin: 05/12/22 09:09 Dose: 5 mg Documented By: CARLITO Ascorbic Acid (Ascorbic Acid 500 Mg Tablet) 1,000 mg PO BID [facility] Last Admin: 05/12/22 09:08 Dose: 1,000 mg Documented By: CARLITO Atorvastatin Calcium (Atorvastatin Calcium 80 Mg Tablet) 80 mg PO DAILY [facility] Last Admin: 05/12/22 09:09 Dose: 80 mg Documented By: CARLITO Cyanocobalamin (Cyanocobalamin (Vitamin B-12) 100 Mcg Tablet) 200 mcg PO DAILY [facility] Last Admin: 05/12/22 09:09 Dose: 200 mcg Documented By: CARLITO Ceftriaxone Sodium 1 gm/ (Sodium Chloride) 50 mls @ 100 mls/hr IV Q24H [facility] Last Infusion: 05/12/22 03:06 Dose: 0 mls/hr Documented By: AASHISH Meropenem 1 gm/ Sodium (Chloride) 100 mls @ 200 mls/hr IV Q8H [facility] Last Infusion: 05/12/22 14:19 Dose: 0 mls/hr Documented By: CARLITO Insulin Glargine (Insulin Glargine,Hum.Rec.Anlog 100 Unit/Ml 10 Ml Vial) 38 unit SUBCUT DAILY@1700 [facility] Last Admin: 05/11/22 16:36 Dose: 38 unit Documented By: LINDA Insulin Human Lispro (Insulin Lispro 100 Unit/Ml 3 Ml Vial) 0 unit SUBCUT QIDACHS [facility]; Protocol Last Admin: 05/12/22 11:52 Dose: 2 unit Documented By: CARLITO Lactic Acid (Ammonium Lactate 12 % Cream 140 Gm Tube) 1 appl TOPICAL BID PRN; Protocol PRN Reason: Dry Skin Last Admin: 05/11/22 23:25 Dose: 1 appl Documented By: AASHISH Loperamide HCl (Loperamide Hcl 2 Mg Capsule) 2 mg PO Q4H PRN PRN Reason: Diarrhea Morphine Sulfate (Morphine Sulfate 2 Mg/Ml Cartridge) 2 mg IVPUSH Q2H PRN; Protocol PRN Reason: moderate pain Last Admin: 05/11/22 23:18 Dose: 2 mg Documented By: AASHISH Nystatin (Nystatin Powder 15 Gm Bottle) 1 appl TOPICAL BID [facility]; Protocol Last Admin: 05/12/22 09:09 Dose: 1 appl Documented By: CARLITO Omeprazole (Omeprazole 40 Mg Capsule.) 40 mg PO DAILY@0630 [facility] Last Admin: 05/12/22 06:29 Dose: 40 mg Documented By: AASHISH Pharmacy Consult (Consult Rx Perform Med Rec) 1 each MISCELLANE ONCE PRN PRN Reason: Consult order Phenazopyridine HCl (Phenazopyridine Hcl 200 Mg Tablet) 200 mg PO TIDWM [facility] Stop: 05/13/22 08:01 Last Admin: 05/12/22 11:51 Dose: 200 mg Documented By: CARLITO Tamsulosin HCl (Tamsulosin Hcl 0.4 Mg Capsule) 0.4 mg PO BEDTIME [facility] Last Admin: 05/11/22 23:16 Dose: 0.4 mg Documented By: AASHISH Vancomycin HCl (Vancomycin Hcl 125 Mg Capsule) 125 mg PO Q6H [facility] Last Admin: 05/12/22 13:22 Dose: 125 mg Documented By: CARLITO Vitamin D (Cholecalciferol (Vitamin D3) 25 Mcg Tablet) 50 mcg PO DAILY [facility] Last Admin: 05/12/22 09:08 Dose: 50 mcg Documented By: CARLITO Labs 05/11/22 07:22 05/12/22 06:12 Labs: Laboratory Results - last 24 hr 05/07/22 05/11/22 05/11/22 06:53 16:11 20:11 Anion Gap Estim Creat Clear Calc Estimated GFR POC Glucose 190 H 243 H Random Glucose Calcium Tiss Transglutamin IgG 17.8 H Tiss Transglutamin IgA <1.0 Anti-Gliadin IgG Ab <1.0 Gliadin (Deamidat) IgA <1.0 05/12/22 05/12/22 05/12/22 06:12 07:50 11:19 Anion Gap 17 Estim Creat Clear Calc 69.7 Estimated GFR 41 POC Glucose 143 H 200 H Random Glucose 147 H Calcium 7.9 L Tiss Transglutamin IgG Tiss Transglutamin IgA Anti-Gliadin IgG Ab Gliadin (Deamidat) IgA Microbiology Microbiology Results: Microbiology 05/10/22 Unknown Urine Culture - Final Urine clean catch - Urine scott top Escherichia coli Assessment and Plan (1) Infection due to ESBL-producing Escherichia coli: Status: Acute (2) Urinary tract infection: Status: Acute (3) JULY (acute kidney injury): Status: Acute Plan 71M PMH chronic afib, DM, CKD III, HTN, gout, sent in for july and severe hyperakelmia, was treated in ICU with kayexlyate and sodium bicarbonate, potassium improved and patient downgraded to medical floor. JULY on CKD III with severe hyperkalemia and metabolic acidosis now at baseline creatinine, K bicarb improved nephrol following, ?hold any Bart / ARBs / Aldactone, Lokelma as needed for potassium of 5.2 above chest/ epigastric pain resolved Urine infection Urine culture growing ESBL E coli Discontinue rocephin AZO for dysuria Start meropenem 1 g q.[address] PICC line DM inuslin morbid obesity wegiht loss diarrhea stool pcr negative cdif colonizer only, but empirically treating with vanco po imodium gi appreciated, colonoscopy showed diverticulosis but no evidence of diverticulitis is, can start Eliquis chronic afib eliquis - on hold for colono htn amlodipine hold lisinopril hold aldactone dvt prophylaxis -continue Eliquis reason for continued hospitalization: Pending final cultures and safe discharge plan Time Spent With Patient Time: Total time managing care of this patient today ____ minutes. Quality Stroke Does the patient have a stroke diagnosis?: No VTE Prior VTE?: No VTE Risk Level:: Medical - moderate - high VTE Device Contraindication: N/A - Device Ordered VTE Drug Contraindication: N/A - Med Ordered
--- NOTE | 2022-05-12 18:02 | HO.MIDLINE ---
Midline Insertion MIDLINE INSERTION Diagnosis: UTI Indication: Half-Way antibiotics Pertinent Labs: reviewed Technique: Using sterile technique including cap and mask, glove and drape, the right arm was prepped and draped in the usual sterile fashion of full barrier technique with CHG. Using ultrasound guidance, right brachial vein access was attempted twice by Sami Thrasher RN, but unable to pass guidewire. Right brachial vein was then accessed on second attempt by Tammie Freire RN. 20G X 10CM Non-PASV midline was positioned. The procedure was performed in S272. Ultrasound was used to document vein patency and for needle entry. A formal ultrasound picture was recorded. [employer]pre[employer]lator has released the line for use and it is currently dressed with a StatLock, Tegaderm, and CHG disc. Verification has been performed for blood return and line patency. Arm Circumference: 39.5CM Equipment: BARD PowerGlide ST midline Catheter Type: 20G X 10CM non-PASV midline Lot #: [id number]
[2022-05-12] MEDS: Insulin Glargine,Hum.rec.anlog 100 UNIT/ML 10 ML VIAL 38 UNIT SUBCUT (18:07)
[2022-05-12] MEDS: Torsemide 20 MG TABLET PO (18:10)
[2022-05-12 18:11] LABS: Glucose, Whole Blood 204 mg/dL (60-115)
[2022-05-12 19:57] LABS: Glucose, Whole Blood 245 mg/dL (60-115)
[2022-05-12] MEDS: Tamsulosin HCL 0.4 MG CAPSULE PO (20:43)
[2022-05-13] MEDS: vancomycin HCL 125 MG CAPSULE PO ×3 (02:30→15:58)
[2022-05-13 03:10] VITALS: BP 141/63; PULSE 61; RESP 18; TEMP 36.4; O2SAT 97
[2022-05-13] MEDS: Omeprazole 40 MG CAPSULE.DR PO (05:11)
[2022-05-13 07:36] LABS: Glucose, Whole Blood 173 mg/dL (60-115)
[2022-05-13 07:47] LABS: Anion Gap 16 (12-20); Blood Urea Nitrogen 39 mg/dL (9-16); Calcium 7.9 mg/dL (8.4-10.2); Carbon Dioxide 24 mmol/L (22-29); Chloride 103 mmol/L (96-108); Creatinine Clr Calc Pharmacy 68.4; Estimated Glomerular Filt Rate 40; Glucose Random 163 mg/dL (60-115); Potassium 4.9 mmol/L (3.3-5.1); Sodium 138 mmol/L (135-145)
[2022-05-13] MEDS: Insulin Lispro 100 UNIT/ML 3 ML VIAL SUBCUT ×2 (07:52→11:19)
[2022-05-13] MEDS: Phenazopyridine HCL 200 MG TABLET PO (07:52)
[2022-05-13] MEDS: Cholecalciferol (Vitamin D3) 25 MCG TABLET 50 MCG PO (07:53)
[2022-05-13] MEDS: Torsemide 20 MG TABLET PO (07:54)
[2022-05-13] MEDS: Ascorbic Acid 500 MG TABLET 1000 MG PO (07:54)
[2022-05-13] MEDS: Cyanocobalamin (Vitamin B-12) 100 MCG TABLET 200 MCG PO (07:54)
[2022-05-13] MEDS: Atorvastatin Calcium 80 MG TABLET PO (07:54)
[2022-05-13] MEDS: Apixaban 5 MG TABLET PO (07:54)
[2022-05-13] MEDS: Nystatin Powder 15 GM BOTTLE 1 APPL TOPICAL (07:59)
[2022-05-13 08:00] VITALS: PULSE 76; RESP 18; TEMP 36.8; O2SAT 97
[2022-05-13] MEDS: Ammonium Lactate 12 % Cream 140 GM TUBE 1 APPL TOPICAL (08:00)
[2022-05-13 08:50] VITALS: BP 124/58
[2022-05-13 09:36] VITALS: BP 124/58
[2022-05-13 10:58] LABS: Glucose, Whole Blood 187 mg/dL (60-115)
--- NOTE | 2022-05-13 11:03 | MHC.CM.PN ---
CM met with Patient to discuss dc planning. Patient will require 2 weeks of IV ABT and he does not feel that he and his would be able to manage that. Patient is agreeable to a broad snf search for IV ABT and PT and CM will follow for a bed offer.
[2022-05-13] MEDS: amLODIPine Besylate 10 MG TABLET PO (11:21)
[2022-05-13 12:00] VITALS: BP 126/64; PULSE 78; RESP 18; TEMP 36.8; O2SAT 97
--- NOTE | 2022-05-13 13:07 | MHC.CM.PN ---
Patient has accepted a SNF bed offer from [facility] who is doing room changes to create a male bed for Patient. CM will follow.
--- NOTE | 2022-05-13 13:08 | PM.PNNEP ---
Subjective Subjective Date of Service: 05/23/22 Interval history: Complaining of burning sensation upon urination that did not improve Urine culture growing ESBL E coli No other overnight events Physical Exam Vital Signs: Vital Signs: Last Vital Signs Temp 98.3 F 05/13/22 12:00 Pulse 78 05/13/22 12:00 Resp 18 05/13/22 12:00 BP 126/64 05/13/22 12:00 Pulse Ox 97 05/13/22 12:00 O2 Del Method 05/13/22 12:00 O2 Flow Rate 5 05/10/22 14:37 BMI result Body Mass Index 63.1 Const: General: no acute distress Orientation/consciousness: patient oriented x3 Eyes: EOM: EOMs intact bilaterally Neck: Neck: Yes supple Resp: Auscultation: diminished lung sounds Cardio: Rate: regular rate GI: Palpation (GI): Soft to palpation Neuro: General: patient oriented x3 and moves all extremities Objective Data Labs 05/11/22 07:22 05/13/22 06:13 Labs: Laboratory Results - last 24 hr 05/12/22 05/12/22 05/13/22 18:06 19:52 06:13 Sodium 138 Potassium 4.9 Chloride 103 Carbon Dioxide 24 Anion Gap 16 BUN 39 H Creatinine 1.68 H Estim Creat Clear Calc 68.4 Estimated GFR 40 POC Glucose 204 H 245 H Random Glucose 163 H Calcium 7.9 L 05/13/22 05/13/22 07:04 10:54 Sodium Potassium Chloride Carbon Dioxide Anion Gap BUN Creatinine Estim Creat Clear Calc Estimated GFR POC Glucose 173 H 187 H Random Glucose Calcium Microbiology Microbiology Results: Microbiology 05/10/22 Unknown Urine clean catch - Urine scott top Urine Culture - Final Escherichia coli 05/03/22 03:13 Blood - Venous Blood Culture - Final No growth after 5 days. 05/03/22 03:13 Blood - Venous Blood Culture - Final No growth after 5 days. 05/03/22 04:14 Urine clean catch - Urine scott top Urine Culture - Final Escherichia coli Procedures Date of Service Date of Service: 05/13/22 Assessment & Plan Assessment and plan (1) MARGOTH (acute kidney injury): Status: Resolved Assessment and Plan: Mr. Geovanni Jimenez is a 71-year-old with a history of chronic afib, DM, CKD III (BL Cr 1.3-1.5mg/dL), HTN, gout, who presented with margoth and severe hyperakelmia, was treated in ICU with kayexlyate and sodium bicarbonate, potassium improved and patient downgraded to medical floor. GFR improved gradually with IVF support. MARGOTH on CKD III with severe hyperkalemia and metabolic acidosis Improved with Bicarb rich isotonic fluids GFR back to baseline Plan: - hold any Bart / ARBs / Aldactone. Lokelma 5 gm PO x prn fr K > 5.2 Low K diet - no current need for PO bicarb tablets; Watch tCO2 - c/w amlodipine 10mg for HTN Agree with Torsemide 20mg PO QD Time Spent With Patient Time: Total time managing care of this patient today ____ minutes. Progress Note: Quality Stroke Does the patient have a stroke diagnosis?: No
--- NOTE | 2022-05-13 13:33 | MHC.CM.PN ---
Patient has been medically cleared for dc to SNF/STR today. Patient will dc to [facility] today at 4PM, via [facility] ([facility] [phone], [phone] confirmed that [facility] NOT have [facility] by [facility]). Patient and his /Arabella @ her listed # are aware of and in agreement with the dc plan.
--- NOTE | 2022-05-13 14:54 | P.DS_ITS ---
DS: Providers Provider Date of Service: 05/13/22 Date of admission: 05/03/22 02:28 Primary care physician: Guzman Edouard Consults: 05/03/22 08:11 Consult to Nephrology Routine Consulting Provider: [facility] Reason for consultation: acute renal failure Has provider been notified: No 05/03/22 08:24 Consult to Infectious Diseases Stat Consulting Provider: Citlali Foley Reason for consultation: MEROPENEM ORDER 05/03/22 09:35 Consult to Wound Care Routine Consulting Provider: Kingston Carrera Reason for consultation: b/l LE venous stasis ulcers 05/06/22 11:31 Consult to Gastroenterology Routine Consulting Provider: Shoaib Diana Reason for consultation: subacute diarrhea ongoing 05/12/22 12:57 Consult to Infectious Diseases Routine Consulting Provider: Citlali Foley Reason for consultation: ESBL E.Coli DS: Diagnosis Discharge Diagnosis (1) MARGOTH (acute kidney injury): Status: Acute (2) Infection due to ESBL-producing Escherichia coli: Status: Acute (3) Metabolic acidosis: Status: Acute (4) Acute hyperkalemia: Status: Acute (5) Clostridioides difficile carrier: Status: Acute DS: Summary Hospital Course Hospital Course: The patient had prolonged hospital stay. For full details please return to EMR. Hospital course The patient was admitted to ICU setting for acute kidney injury with acute hyperkalemia metabolic acidosis. Treated with IV fluid, IV bicarbonate, IV insulin, IV calcium gluconate and Kayexalate with good response over the course of ICU stay as potassium started trend down with improvement of kidney function. He was followed by Nephrology who recommended discontinuation of Juvenal, arbs and Aldactone with usage of Lokelma as needed for elevated potassium level. For the rest of hospital stay his kidney function improved back to baseline with normal potassium level. He was noted to have bacteriuria at time of admission with no symptoms. He was not treated at that point for pansensitive E coli. He started to complain of burning sensation during the hospital stay and another urine culture was sent 1 week from admission showing evidence of ESBL E coli. Started any neuropathy him as he was evaluated by infectious disease specialist with recommendation for 2 weeks course of IV Invanz. PICC line was placed with a plan to be transferred to SNF to finish his treatment. Reported to have diarrhea. Tested positive for C diff antigen negative for the toxin. Kept on vancomycin p.o. as a prophylaxis per ID recommendations with plan to discharge him on vancomycin while he is on the antibiotics. Evaluated by principal network engineer who did a colonoscopy showing polyps. Biopsy result came back as tubular adenomas and the patient is aware of the condition and need to follow-up with Gastroenterology as outpatient. Low-potassium diet Discontinue lisinopril Hold spironolactone Increase amlodipine to 10 mg daily Continue Invanz 1 g daily for 12 more days Continue vancomycin orally for the next 2 weeks Can use Imodium as needed for diarrhea To follow-up with principal network engineer as outpatient Time Spent with Patient Time attestation: Total time managing care of this patient today ____ minutes. Discharge coordination time: Greater than 30 minutes Quality: Safe Use of Opioids Does Pt have an Active Cancer Diagnosis on the Problem List?: No Quality: Stroke Does the patient have a stroke diagnosis?: No Physical Exam Vital Signs: Vital Signs: Last Vital Signs Temp 98.3 F 05/13/22 12:00 Pulse 78 05/13/22 12:00 Resp 18 05/13/22 12:00 BP 126/64 05/13/22 12:00 Pulse Ox 97 05/13/22 12:00 O2 Del Method 05/13/22 12:00 O2 Flow Rate 5 05/10/22 14:37 BMI result Body Mass Index 63.1 Const: Other: Constitutional : Awake, interactive, morbidly obese, not in distress Neck : Normal inspection, Supple Cardiovascular : RRR, no JVP, no lower extremity edema Respiratory : Fair bilateral air entry, no crackles, wheezes or rhonchi Gastrointestinal: soft, lax, Normal bowel sounds, Non tender Skin : Warm, Dry, chronic bilateral stasis dermatitis changes Neurological : Alert & oriented x3, No focal deficit DS: Data Data Completed and Pending Completed studies during hospitalization [Text1]: Pending at discharge 05/10/22 14:17 Surgical [PTH] Routine Labs on day of discharge: Laboratory Results - last 24 hr 05/12/22 05/12/22 05/13/22 18:06 19:52 06:13 Sodium 138 Potassium 4.9 Chloride 103 Carbon Dioxide 24 Anion Gap 16 BUN 39 H Creatinine 1.68 H Estim Creat Clear Calc 68.4 Estimated GFR 40 POC Glucose 204 H 245 H Random Glucose 163 H Calcium 7.9 L 05/13/22 05/13/22 07:04 10:54 Sodium Potassium Chloride Carbon Dioxide Anion Gap BUN Creatinine Estim Creat Clear Calc Estimated GFR POC Glucose 173 H 187 H Random Glucose Calcium Imaging CT scan - abdomen: Radiologist's impression: ITS Impressions Chest X-Ray 05/02/22 19:07 IMPRESSION: Unremarkable examination. Abdomen/Pelvis CT 05/03/22 05:02 IMPRESSION: Suboptimal assessment due to patient body habitus. No acute findings identified. Chronic changes as noted above. Chest X-Ray 05/09/22 09:45 FINDINGS/IMPRESSION: The study is significantly limited by portable technique, low lung volumes, and patient body habitus. There is no gross acute radiographic finding. No focal infiltrate, effusion, or pneumothorax is identified. The heart size is poorly evaluated. There are mild degenerative changes of the spine. Discharge Plan Discharge Anticipated Discharge Date/Time: 05/13/22 14:32 Patient Disposition: [facility] Discharge Diagnosis: ESBL E coli infection Acute kidney injury Hyperkalemia Referrals: Tim Pritchard [Outside] - 1 Week Guzman Edouard [Primary Care Provider] - 1 Week Discharge Medications: New vancomycin 125 mg Capsule 125 mg PO QID 14 Days Qty: 56 0RF ertapenem [Invanz] 1 gram recon soln 1 g IV Q24H Qty: 12 0RF amlodipine 10 mg Tablet 10 mg PO DAILY@1200 Qty: 30 0RF Protocol: Hold for SBP< HOLD for SBP < : 90 Continued Eliquis 5 mg tablet 5 mg PO BID 30 Days Qty: 60 5RF torsemide 20 mg Tablet 20 mg PO DAILY methenamine hippurate 1 gram Tablet 1 g PO BID tamsulosin 0.4 mg Capsule 0.4 mg PO BEDTIME insulin aspart U-100 [Novolog U-100 Insulin aspart] 100 unit/mL Solution 16 unit SUBCUT DAILY@1130 insulin aspart U-100 [Novolog U-100 Insulin aspart] 100 unit/mL Solution 24 unit SUBCUT DAILY@1630 ascorbic acid (vitamin C) [Vitamin C] 1,000 mg Tablet 1,000 mg PO BID allopurinol 300 mg Tablet 300 mg PO DAILY cholecalciferol (vitamin D3) 50 mcg (2,000 unit) Capsule 50 mcg PO DAILY insulin lispro 100 unit/mL Insulin Pen 8 unit SUBCUT DAILY@0730 insulin glargine [Lantus Solostar U-100 Insulin] 100 unit/mL (3 mL) Insulin Pen 38 unit SUBCUT DAILY@1700 cyanocobalamin (vitamin B-12) 100 mcg Tablet 200 mcg PO DAILY rosuvastatin 40 mg Tablet 20 mg PO DAILY Discontinued spironolactone 25 mg Tablet 25 mg PO BID@0900,1700 lisinopril 10 mg Tablet 10 mg PO DAILY@1200 amlodipine 5 mg Tablet 5 mg PO DAILY@1200 Discharge Orders: Discharge Order (Routine); Ordered 05/13/22 Ordered By: Kvng Melo Diet: Low-potassium diet Activity on Discharge: As tolerated Stand Alone Forms: Patient Portal Discharge page Care Plan Goals: Read below Health Concerns: Read below Plan of Treatment: Read below Assessment: You were admitted to the hospital for evaluation of acute kidney injury and high potassium level. Responded well to treatment as your followed by nephrology team with improvement new kidney function and electrolytes. Noted to have urine infection treated with IV antibiotics with no significant improvement. Repeated urine culture showed resistant E coli. Evaluated by Infectious Disease specialist and treated with IV meropenem with good response. To finish total of 2 weeks of treatment. Evaluated by principal network engineer Dr. Man who did colonoscopy. Biopsy showed tubular adenomas. You will need to follow up with GI as outpatient. Low-potassium diet Discontinue lisinopril Hold spironolactone Increase amlodipine to 10 mg daily Continue Invanz 1 g daily for 12 more days Continue vancomycin orally for the next 2 weeks Can use Imodium as needed for diarrhea To follow-up with principal network engineer as outpatient
[2022-05-13 15:07] LABS: COVID-19 Test Negative (Negative); IDNOW Serial# 16C4AD1C
[2022-05-14 13:04] LABS: Endomysial IgA Antibody Negative (Negative)
--- NOTE | 2022-05-16 13:37 | MHC.CM.PN ---
CM received a call from Patient and his wanting to confirm that the dc orders in the dc summary [facility], prior to Patient going to [facility], were for Patient to receive IV ABT for his UTI. CM explained to Patient's that she/Patient would need to request a copy of the dc summary from Medical Records here at the hospital. ELEN was able to provide Patient and his with the Name and dose of the IV ABT listed in the dc summary, but again, explained that ELEN was not able to copy and send parts of the medical record.
== END 2022-05-13 17:19 | disposition skilled nursing facility (03) | DRG 683 ==
LOC: HO.ED 21:06 → HO.EDOVER 05-03 02:38 → HO.ICU 05-03 05:05 → HO.IMC 05-03 15:55
PROVIDERS: Internal Medicine; Internal Medicine Gastroenterology; Internal Medicine Pulmonary Disease; Nurse Practitioner Family; Admitting Provider Registered Nurse Community Health; Emergency Provider Emergency Medicine Emergency Medical Services; PCP Internal Medicine; Visit Provider Student in an Organized Health Care Education/Training Program
PROC: 0DJD8ZZ Inspection of Lower Intestinal Tract, Via Natural or Artificial Opening Endoscopic (ICD-10-PCS; CPT 45378; principal; 2022-05-10 13:10)
DX: N17.0 Acute kidney failure with tubular necrosis (principal); A04.72 Enterocolitis due to Clostridium difficile, not specified as recurrent; E87.20 Acidosis, unspecified; I48.20 Chronic atrial fibrillation, unspecified; Z68.44 Body mass index [BMI] 60.0-69.9, adult; N39.0 Urinary tract infection, site not specified; Z16.12 Extended spectrum beta lactamase (ESBL) resistance; I12.9 Hypertensive chronic kidney disease with stage 1 through stage 4 chronic kidney disease, or unspecified chronic kidney disease; N18.30 Chronic kidney disease, stage 3 unspecified; E87.5 Hyperkalemia; D72.829 Elevated white blood cell count, unspecified; E66.01 Morbid (severe) obesity due to excess calories; K57.30 Diverticulosis of large intestine without perforation or abscess without bleeding; M10.9 Gout, unspecified; I87.2 Venous insufficiency (chronic) (peripheral); B96.20 Unspecified Escherichia coli [E. coli] as the cause of diseases classified elsewhere; E11.22 Type 2 diabetes mellitus with diabetic chronic kidney disease; D12.0 Benign neoplasm of cecum; D12.5 Benign neoplasm of sigmoid colon; Z20.822 Contact with and (suspected) exposure to COVID-19; Z87.440 Personal history of urinary (tract) infections; Z88.0 Allergy status to penicillin; Z79.4 Long term (current) use of insulin; Z79.01 Long term (current) use of anticoagulants; Z79.899 Other long term (current) drug therapy
CPT/HCPCS: 0241U; 36410; 36415; 71045; 71046; 74176; 80048; 80076; 81001; 82040; 82784; 82803; 82947; 83605; 83735; 84100; 84484; 85025; 85027; 85379; 85610; 86231; 86258; 86364; 87040; 87086; 87088; 87186; 87324; 87493; 87507; 87635; 88305; 93005; 93306; 97116; 97161; 99285; C1751; J0611; J0696; J1200; J1643; J1650; J1956; J2185; J2250; J2270; J3371; Q9957

== ENCOUNTER 2022-08-02 16:37 | Inpatient (IN) | payer OTHER, MEDICARE, SELFPAY ==
--- NOTE | ~2022-08-02 | XR_ITS ---
EXAMINATION: XR CHEST CLINICAL INFORMATION: Shortness of breath. COMPARISON: Chest radiograph 05/09/2022. TECHNIQUE: Frontal view of the chest was obtained. FINDINGS: New retrocardiac/left lower lobe airspace opacities. Increased right infrahilar fullness. Small left-sided pleural effusion. No pneumothorax. Stable cardiomediastinal silhouette. No acute osseous abnormalities. XR/XR chest 1V IMPRESSION: 1. New retrocardiac/left lower lobe airspace opacities concerning for aspiration or pneumonia. 2. Increased right infrahilar fullness, nonspecific, could be associated with an additional infiltrate in the setting of pneumonia. 3. Small left-sided pleural effusion. Recommend reimaging after treatment to rule out malignancy.
[2022-08-02 16:53] VITALS: BP 132/68; BP 159/68; PULSE 72; PULSE 75; RESP 26; TEMP 36.7; O2SAT 96; BMI 63.9
--- NOTE | 2022-08-02 17:19 | ECG_ITS ---
Test Reason : pain Blood Pressure : / mmHG Vent. Rate : 071 BPM Atrial Rate : 000 BPM P-R Int : 000 ms QRS Dur : 158 ms QT Int : 426 ms P-R-T Axes : 000 -74 054 degrees QTc Int : 462 ms Atrial fibrillation Left axis deviation Right bundle branch block Abnormal ECG When compared with ECG of 09-MAY-2022 10:37, T wave inversion now evident in Anterior leads Referred By: Rod Prakash Electronically Signed By:LOURDES OLEARY MD
--- NOTE | 2022-08-02 18:09 | ED_ITS ---
HPI - General Adult General Chief complaint: Dyspnea Stated complaint: SOB Time Seen by Provider: 08/02/22 17:05 Source: patient, RN notes reviewed and old records reviewed Mode of arrival: EMS Limitations: no limitations History of Present Illness HPI narrative: 71-year-old male past medical history significant for chronic kidney disease, AFib on Eliquis, congestive heart failure, obesity, lymphedema presents for evaluation of shortness of breath Patient had a lengthy admission year the beginning of May of this year. He was subsequently discharged to rehab where he had been up until 3 weeks ago The patient reports since being home for the last 3 weeks he has had increasing shortness of breath, a 20 lb weight gain and increasing leg swelling He denies any fevers, chills, cough He reports significant shortness of breath even with ?lifting my legs up while in bed. ? He has been taking all his medications as prescribed Related Data Home Medications Medication Instructions Recorded Confirmed allopurinol 300 mg tablet 300 mg PO DAILY 11/03/20 08/02/22 ascorbic acid (vitamin C) 1,000 mg 1,000 mg PO BID 11/03/20 08/02/22 tablet (Vitamin C) cholecalciferol (vitamin D3) 50 50 mcg PO DAILY 11/03/20 08/02/22 mcg (2,000 unit) capsule insulin aspart U-100 100 unit/mL 16 unit subcut DAILY@1130 11/03/20 08/02/22 subcutaneous solution (Novolog U-100 Insulin aspart) insulin aspart U-100 100 unit/mL 20 unit subcut DAILY@1630 11/03/20 08/02/22 subcutaneous solution (Novolog U-100 Insulin aspart) methenamine hippurate 1 gram tablet 1 g PO BID 11/03/20 08/02/22 tamsulosin 0.4 mg capsule 0.4 mg PO BEDTIME 11/03/20 08/02/22 torsemide 20 mg tablet 20 mg PO DAILY 11/03/20 08/02/22 cyanocobalamin (vitamin B-12) 100 200 mcg PO DAILY 05/02/22 08/02/22 mcg tablet insulin glargine 100 unit/mL (3 28 unit subcut BEDTIME 05/02/22 08/02/22 mL) subcutaneous pen (Lantus Solostar U-100 Insulin) rosuvastatin 40 mg tablet 20 mg PO BEDTIME 05/02/22 08/02/22 amlodipine 5 mg tablet 5 mg PO DAILY@1200 08/02/22 08/02/22 insulin aspart U-100 100 unit/mL 8 unit subcut DAILY 08/02/22 08/02/22 subcutaneous solution (Novolog U-100 Insulin aspart) Previous Rx's Medication Instructions Recorded apixaban 5 mg tablet (Eliquis) 5 mg PO BID 30 days #60 tabs 03/26/20 Allergies Allergy/AdvReac Type Severity Reaction Status Date / Time Penicillins AdvReac Intermediate HALLUCINATIONS, Verified 08/02/22 16:58 SWEATS Review of Systems Constitutional: Constitutional: Reports as per HPI, Denies chills, Denies fatigue, Denies fever(s), Denies headache(s) and Reports weight gain ENT: Denies headache(s) Cardiovascular: Cardiovascular: Denies chest pain, Reports leg edema, Reports dyspnea and Reports dyspnea on exertion Respiratory: Respiratory: Denies cough, Reports dyspnea and Reports dyspnea on exertion Gastrointestinal: Gastrointestinal: Denies abdominal pain, Denies constipation and Denies vomiting Genitourinary: Genitourinary: Denies difficulty urinating and Denies dysuria Integumentary/Breasts: Skin/Breast: Reports erythema (Chronic to both legs) Neurologic: Denies headache(s) and Denies focal weakness Endocrine: Endocrine: Denies fatigue PMFSH Past Medical History Medical History Diabetes Hypertension Kidney disease Social History Social History Household Members: Spouse Housing: House Do you presently have visiting nurse or other home services: No Alcohol intake: never Patient Tobacco Use Status: Never used Tobacco Smoked in Last 30 Days: No Use of substances other than those prescribed or required for medical reasons: No Advance Directives: Yes Advance Directives on File: Yes Advance Directives Date on File: 05/16/22 service: Yes Current occupational status: retired Physical Exam ED Vital Signs: Vital Signs - 24 hr 08/02/22 16:53 08/02/22 19:50 Temperature 98.1 F 98.2 F Pulse Rate 75 78 Respiratory Rate 26 H 28 H Blood Pressure 159/68 H 134/50 L Pulse Oximetry 96 96 Oxygen Delivery Method Nasal Cannula Nasal Cannula Oxygen Flow Rate 3 BMI result Body Mass Index 63.9 Const General: healthy appearing, alert and awake Nutritional Appearance: well nourished Orientation/consciousness: patient oriented x3 HENMT Head: Yes normocephalic and Yes atraumatic Throat: Yes posterior oropharynx normal Eyes Eyelids: Yes eyelids normal Conjunctivae: conjunctivae normal Sclerae: sclerae normal Corneas: corneas normal Pupils: Equal, round and reactive pupils present EOM: EOMs intact bilaterally Neck Neck: Yes full ROM Resp Other: Diminished breath sounds throughout, no adventitious breath sounds noted. Patient has normal respiratory effort at rest, however with simple exertion of sitting up in bed or lifting his legs he becomes tachypneic and his oxygen saturation drops down to 90% while on 2 L Effort & Inspection: labored (With minimal exertion) Auscultation: not clear to auscultation bilaterally Cardio Rate: regular rate Rhythm: regular rhythm GI Inspection: No distended Palpation (GI): Soft to palpation, not firm, nontender, no guarding and not rigid Auscultation: normoactive bowel sounds Skin Other: Chronic lymphedema and venous stasis the lower extremities below the knee bilaterally Neuro General: patient oriented x3 Cranial nerves: Yes Equal, round and reactive pupils present and Yes Bilaterally intact EOM present Cognition (Neuro): normal cognition Extrem Other: Moving all extremities well without any obvious deformities Course Reevaluation(s) Reevaluation #1: Patient's chest x-ray shows pneumonia. He does have some degree of CHF. We will treat with antibiotics and Bumex 1 mg IV. Incidentally the patient also was noted to have a UTI which is covered with ceftriaxone. No evidence of sepsis. I spoke to Dr. Urban who will admit the patient Time: 22:04 Medications Administered Generic Name Dose Route Start Last Admin Trade Name Freq PRN Reason Stop Dose Admin Azithromycin 500 mg/ Sodium 250 mls @ 125 mls/hr 08/02/22 21:16 08/02/22 21:41 Chloride IV 08/02/22 23:15 125 mls/hr ONCE ONE Administration Discontinued Medications Generic Name Dose Route Start Last Admin Trade Name Freq PRN Reason Stop Dose Admin Bumetanide 1 mg 08/02/22 21:17 08/02/22 21:32 Bumetanide 1 Mg/4 Ml Vial IVPUSH 08/02/22 21:18 1 mg ONCE ONE Administration Protocol Ceftriaxone Sodium 1 gm/ 50 mls @ 100 mls/hr 08/02/22 19:46 08/02/22 20:45 Sodium Chloride IV 08/02/22 20:15 Infused ONCE ONE Infusion Medical Decision Making Medical Decision Making [facility] Narrative: 71-year-old male with history of congestive heart failure, AFib, chronic kidney disease presents for evaluation of shortness of breath and weight gain. Most consistent with congestive heart failure exacerbation. Will get a chest x-ray, check labs. At rest the patient is comfortable, however with minimal exertion he becomes tachypneic and hypoxic. He will likely require IV diuretics Differential Diagnosis CHF Pneumonia Bronchitis Upper respiratory infection Viral syndrome Lab Data 08/02/22 18:45 08/02/22 18:45 Labs: Lab Results 08/02/22 08/02/22 08/02/22 Range/Units 18:45 18:45 18:45 WBC 10.8 (4.8-10.8) X10*3/uL RBC 3.77 L (4.60-5.80) X10*6/uL Hgb 10.5 L (14.0-18.0) g/dl Hct 34.5 L (42.0-52.0) % MCV 91.5 (80.0-98.0) fL MCH 27.9 (27.0-33.0) pg MCHC 30.4 L (31.0-36.0) g/dl RDW 16.0 (11.0-16.0) % Plt Count 191 (160-400) X10*3/uL MPV 10.0 (9.4-12.4) fL Immature Gran % (Auto) 0.6 H (0.0-0.4) % Neut % (Auto) 82.4 H (45-73) % Lymph % (Auto) 7.4 L (20-40) % [place] % (Auto) 6.2 (2-11) % Eos % (Auto) 3.0 (0-4) % Baso % (Auto) 0.4 (0-2) % Lymph # (Auto) 0.8 L (1.2-4.9) X10*3/uL [place] # (Auto) 0.7 (0.1-1.2) X10*3/uL Eos # (Auto) 0.3 (0.0-0.4) X10*3/uL Baso # (Auto) 0.0 (0.0-0.2) X10*3/uL Abs Immat Gran (auto) 0.07 H (0.00-0.03) X10*3/uL Absolute Neuts (auto) 8.9 H (2.0-8.3) x10*3/uL Absolute Nucleated RBC 0.000 (0.0-0.012) X10*3/uL Nucleated RBC % (auto) 0.0 (0.0-0.2) /100WBC PT (10.0-13.1) SEC INR (0.9-1.1) APTT (26.0-36.4) SEC Sodium 141 (135-145) mmol/L Potassium 4.7 (3.3-5.1) mmol/L Chloride 105 (96-108) mmol/L Carbon Dioxide 24 (22-29) mmol/L Anion Gap 17 (12-20) BUN 28 H (9-16) mg/dL Creatinine 1.51 H (0.5-1.4) mg/dL Estim Creat Clear Calc 79.0 Estimated GFR 46 Random Glucose 158 H (60-115) mg/dL Lactic Acid (0.5-2.0) mmol/L Calcium 8.6 D (8.4-10.2) mg/dL Magnesium 2.0 (1.6-2.6) mg/dL Total Bilirubin 1.0 (0.0-1.0) mg/dL AST 18 (5-37) U/L ALT 10 (0-40) U/L Alkaline Phosphatase 80 (39-117) U/L Troponin I High Sens (<3.5-35.0) ng/L B-Natriuretic Peptide 131 H (<100) pg/mL Total Protein 6.4 L (6.5-8.0) g/dL Albumin 3.5 (3.5-5.0) g/dL Lipase 14 (8-78) U/L Urine Color Urine Appearance Urine pH (5.0-9.0) Ur Specific [place] (1.005-1.025) Urine Protein (Neg-Trace) mg/dL Urine Glucose (UA) (Negative) mg/dL Urine Ketones (Negative) mg/dL Urine Blood (Negative) Urine Nitrite (Negative) Ur Leukocyte Esterase (Negative) Urine RBC (0-2) /HPF Urine WBC (0-5) /HPF Ur Squamous Epith Cells (0-2) /HPF Urine Bacteria (None Seen) Hyaline Casts (0-2) /LPF Influenza Type A (PCR) (Negative) Influenza Type B (PCR) (Negative) RSV RNA Qual (PCR) (Negative) SARS-CoV-2 RNA (RT-PCR) (Negative) 08/02/22 08/02/22 08/02/22 Range/Units 18:45 18:45 19:13 WBC (4.8-10.8) X10*3/uL RBC (4.60-5.80) X10*6/uL Hgb (14.0-18.0) g/dl Hct (42.0-52.0) % MCV (80.0-98.0) fL MCH (27.0-33.0) pg MCHC (31.0-36.0) g/dl RDW (11.0-16.0) % Plt Count (160-400) X10*3/uL MPV (9.4-12.4) fL Immature Gran % (Auto) (0.0-0.4) % Neut % (Auto) (45-73) % Lymph % (Auto) (20-40) % [place] % (Auto) (2-11) % Eos % (Auto) (0-4) % Baso % (Auto) (0-2) % Lymph # (Auto) (1.2-4.9) X10*3/uL [place] # (Auto) (0.1-1.2) X10*3/uL Eos # (Auto) (0.0-0.4) X10*3/uL Baso # (Auto) (0.0-0.2) X10*3/uL Abs Immat Gran (auto) (0.00-0.03) X10*3/uL Absolute Neuts (auto) (2.0-8.3) x10*3/uL Absolute Nucleated RBC (0.0-0.012) X10*3/uL Nucleated RBC % (auto) (0.0-0.2) /100WBC PT (10.0-13.1) SEC INR (0.9-1.1) APTT (26.0-36.4) SEC Sodium (135-145) mmol/L Potassium (3.3-5.1) mmol/L Chloride (96-108) mmol/L Carbon Dioxide (22-29) mmol/L Anion Gap (12-20) BUN (9-16) mg/dL Creatinine (0.5-1.4) mg/dL Estim Creat Clear Calc Estimated GFR Random Glucose (60-115) mg/dL Lactic Acid 1.5 (0.5-2.0) mmol/L Calcium (8.4-10.2) mg/dL Magnesium (1.6-2.6) mg/dL Total Bilirubin (0.0-1.0) mg/dL AST (5-37) U/L ALT (0-40) U/L Alkaline Phosphatase (39-117) U/L Troponin I High Sens (<3.5-35.0) ng/L B-Natriuretic Peptide (<100) pg/mL Total Protein (6.5-8.0) g/dL Albumin (3.5-5.0) g/dL Lipase (8-78) U/L Urine Color Yellow Urine Appearance Cloudy Urine pH 5.5 (5.0-9.0) Ur Specific [place] 1.010 (1.005-1.025) Urine Protein 100 (2+) H (Neg-Trace) mg/dL Urine Glucose (UA) Negative (Negative) mg/dL Urine Ketones Negative (Negative) mg/dL Urine Blood Trace H (Negative) Urine Nitrite Positive H (Negative) Ur Leukocyte Esterase Large (3+) H (Negative) Urine RBC 0-2 (0-2) /HPF Urine WBC >50 H (0-5) /HPF Ur Squamous Epith Cells 0-2 (0-2) /HPF Urine Bacteria 4+ (None Seen) Hyaline Casts 3-5 (0-2) /LPF Influenza Type A (PCR) NEGATIVE (Negative) Influenza Type B (PCR) NEGATIVE (Negative) RSV RNA Qual (PCR) NEGATIVE (Negative) SARS-CoV-2 RNA (RT-PCR) NEGATIVE (Negative) 08/02/22 08/02/22 Range/Units 19:49 19:50 WBC (4.8-10.8) X10*3/uL RBC (4.60-5.80) X10*6/uL Hgb (14.0-18.0) g/dl Hct (42.0-52.0) % MCV (80.0-98.0) fL MCH (27.0-33.0) pg MCHC (31.0-36.0) g/dl RDW (11.0-16.0) % Plt Count (160-400) X10*3/uL MPV (9.4-12.4) fL Immature Gran % (Auto) (0.0-0.4) % Neut % (Auto) (45-73) % Lymph % (Auto) (20-40) % [place] % (Auto) (2-11) % Eos % (Auto) (0-4) % Baso % (Auto) (0-2) % Lymph # (Auto) (1.2-4.9) X10*3/uL [place] # (Auto) (0.1-1.2) X10*3/uL Eos # (Auto) (0.0-0.4) X10*3/uL Baso # (Auto) (0.0-0.2) X10*3/uL Abs Immat Gran (auto) (0.00-0.03) X10*3/uL Absolute Neuts (auto) (2.0-8.3) x10*3/uL Absolute Nucleated RBC (0.0-0.012) X10*3/uL Nucleated RBC % (auto) (0.0-0.2) /100WBC PT 17.4 H (10.0-13.1) SEC INR 1.5 H (0.9-1.1) APTT 38.5 H (26.0-36.4) SEC Sodium (135-145) mmol/L Potassium (3.3-5.1) mmol/L Chloride (96-108) mmol/L Carbon Dioxide (22-29) mmol/L Anion Gap (12-20) BUN (9-16) mg/dL Creatinine (0.5-1.4) mg/dL Estim Creat Clear Calc Estimated GFR Random Glucose (60-115) mg/dL Lactic Acid (0.5-2.0) mmol/L Calcium (8.4-10.2) mg/dL Magnesium (1.6-2.6) mg/dL Total Bilirubin (0.0-1.0) mg/dL AST (5-37) U/L ALT (0-40) U/L Alkaline Phosphatase (39-117) U/L Troponin I High Sens 20.5 (<3.5-35.0) ng/L B-Natriuretic Peptide (<100) pg/mL Total Protein (6.5-8.0) g/dL Albumin (3.5-5.0) g/dL Lipase (8-78) U/L Urine Color Urine Appearance Urine pH (5.0-9.0) Ur Specific [place] (1.005-1.025) Urine Protein (Neg-Trace) mg/dL Urine Glucose (UA) (Negative) mg/dL Urine Ketones (Negative) mg/dL Urine Blood (Negative) Urine Nitrite (Negative) Ur Leukocyte Esterase (Negative) Urine RBC (0-2) /HPF Urine WBC (0-5) /HPF Ur Squamous Epith Cells (0-2) /HPF Urine Bacteria (None Seen) Hyaline Casts (0-2) /LPF Influenza Type A (PCR) (Negative) Influenza Type B (PCR) (Negative) RSV RNA Qual (PCR) (Negative) SARS-CoV-2 RNA (RT-PCR) (Negative) Discharge Plan Discharge Clinical Impression: Community acquired pneumonia, Congestive heart failure Patient Disposition: Admitted As Inpatient Prescriptions: No Action Eliquis 5 mg tablet 5 mg PO BID 30 Days Qty: 60 5RF torsemide 20 mg Tablet 20 mg PO DAILY methenamine hippurate 1 gram Tablet 1 g PO BID tamsulosin 0.4 mg Capsule 0.4 mg PO BEDTIME insulin aspart U-100 [Novolog U-100 Insulin aspart] 100 unit/mL Solution 16 unit SUBCUT DAILY@1130 insulin aspart U-100 [Novolog U-100 Insulin aspart] 100 unit/mL Solution 20 unit SUBCUT DAILY@1630 ascorbic acid (vitamin C) [Vitamin C] 1,000 mg Tablet 1,000 mg PO BID allopurinol 300 mg Tablet 300 mg PO DAILY cholecalciferol (vitamin D3) 50 mcg (2,000 unit) Capsule 50 mcg PO DAILY insulin glargine [Lantus Solostar U-100 Insulin] 100 unit/mL (3 mL) Insulin Pen 28 unit SUBCUT BEDTIME cyanocobalamin (vitamin B-12) 100 mcg Tablet 200 mcg PO DAILY rosuvastatin 40 mg Tablet 20 mg PO BEDTIME insulin aspart U-100 [Novolog U-100 Insulin aspart] 100 unit/mL Solution 8 unit SUBCUT DAILY amlodipine 5 mg Tablet 5 mg PO DAILY@1200
[2022-08-02 18:51] LABS: MANUAL DIFF FLAG NO
[2022-08-02 18:52] LABS: Basophils Percent Auto 0.4 % (0-2); Eosinophils Absolute Auto 0.3 X10*3/uL (0.0-0.4); Hematocrit 34.5 % (42.0-52.0); Hemoglobin 10.5 g/dl (14.0-18.0); Imm Gran Abs Auto 0.07 X10*3/uL (0.00-0.03); Imm Gran Pct Auto 0.6 % (0.0-0.4); Lymphocytes Absolute Auto 0.8 X10*3/uL (1.2-4.9); Lymphocytes Percent Auto 7.4 % (20-40); Mean Corpuscular HGB Conc 30.4 g/dl (31.0-36.0); Mean Corpuscular Hemoglobin 27.9 pg (27.0-33.0); Mean Corpuscular Volume 91.5 fL (80.0-98.0); Monocytes Absolute Auto 0.7 X10*3/uL (0.1-1.2); Monocytes Percent Auto 6.2 % (2-11); Neutrophils Absolute Auto 8.9 x10*3/uL (2.0-8.3); Neutrophils Percent Auto 82.4 % (45-73); Platelet Count 191 X10*3/uL (160-400); Red Blood Count 3.77 X10*6/uL (4.60-5.80); White Blood Count 10.8 X10*3/uL (4.8-10.8)
--- NOTE | 2022-08-02 18:52 | PHA.MEDREC ---
Pharmacy Consult ? Medication Reconciliation Pharmacy has completed the medication reconciliation. Patient confirm all medications. Cross check with list [facility]. Andrey FigueredoD
[2022-08-02 19:07] LABS: Appearance Urine Cloudy; Color Urine Yellow; Glucose Urine UA Negative (Negative); Leukocyte Esterase Urine Large (3+) (Negative); Nitrite Urine Positive (Negative); PH 5.5 (5.0-9.0); UMIC TRIGGER UACC YES; Urine Blood Trace (Negative); Urine Ketones Negative (Negative); Urine Protein 100 (2+) mg/dL (Neg-Trace)
[2022-08-02 19:08] LABS: Lipase 14 U/L (8-78)
[2022-08-02 19:13] LABS: Bacteria Urine 4+ (None Seen); RBC Urine 0-2 /HPF (0-2); Squamous Epithelial Cell Urine 0-2 /HPF (0-2); UACC Culture Trigger YES; WBC Urine >50 /HPF (0-5)
[2022-08-02 19:15] LABS: B Type Natriuretic Peptide 131 pg/mL (<100)
[2022-08-02 19:31] LABS: Lactic Acid 1.5 mmol/L (0.5-2.0)
[2022-08-02 19:38] LABS: Influenza A PCR NEGATIVE (Negative); Influenza B PCR NEGATIVE (Negative); Resp Syncy Virus RNA Qual PCR NEGATIVE (Negative); SARS COV2 PCR INHOUSE NEGATIVE (Negative)
[2022-08-02 19:50] VITALS: BP 134/50; PULSE 78; RESP 28; TEMP 36.8; O2SAT 96
--- NOTE | 2022-08-02 19:52 | MHC.EDTECH ---
This tech assumed care of pt at 1900,Vitals obtained,Labs drawn, Patient urinated 350cc of cloudy urine. Pt is resting comfortably at this time Call estrada in reach
--- NOTE | 2022-08-02 20:00 | PC.NURSE ---
This sports writer assumed care of this Pt at 1900. Pt A&Ox4, denies any pain. Pt sitting up in bed, Pt tachypnic, RR 28, on 3L via NC, o2 sat 96%. Pt states I feel SOB with exertion . Pt reports cough with white and yellow phlegm. Lung sounds diminished. Swollen BLL noted with dry flaky skin. Pt incontinent of urine. IV line placed and meds given as documented.
[2022-08-02 20:09] LABS: Partial Thromboplastin Time 38.5 SEC (26.0-36.4)
[2022-08-02] MEDS: cefTRIAXone sodium 1 GM in 0.9 % Sodium Chloride 50 ML IV (20:11)
[2022-08-02 20:22] LABS: Anion Gap 17 (12-20); Calcium 8.6 mg/dL (8.4-10.2); Carbon Dioxide 24 mmol/L (22-29); Chloride 105 mmol/L (96-108); Potassium 4.7 mmol/L (3.3-5.1); Sodium 141 mmol/L (135-145); Total Protein 6.4 g/dL (6.5-8.0)
[2022-08-02 20:24] LABS: Troponin-I High Sensitivity 20.5 ng/L (<3.5-35.0)
[2022-08-02 20:29] LABS: Alanine Aminotransferase 10 U/L (0-40); Albumin Level 3.5 g/dL (3.5-5.0); Alkaline Phosphatase 80 U/L (39-117); Aspartate Amino Transferase 18 U/L (5-37); Blood Urea Nitrogen 28 mg/dL (9-16); Estimated Glomerular Filt Rate 46; Glucose Random 158 mg/dL (60-115)
[2022-08-02 21:20] LABS: INTERNATIONAL NORM RATIO 1.5 (0.9-1.1); Prothrombin Time 17.4 SEC (10.0-13.1)
[2022-08-02] MEDS: Bumetanide 1 MG/4 ML VIAL IVPUSH (21:32)
[2022-08-02] MEDS: Azithromycin 500 MG in 0.9 % Sodium Chloride 250 ML 125 MG IV (21:41)
[2022-08-02 22:03] VITALS: BP 110/73; PULSE 80; RESP 24; TEMP 36.8; O2SAT 96
--- NOTE | 2022-08-02 22:05 | MHC.EDTECH ---
Vitals taken, Patient urinated 100CC in urinal. Patient having a hard time breathing,sats are good,RN was made aware. This tech will place patient in hospital bed for comfort. Call estrada in reach
--- NOTE | 2022-08-02 22:49 | PM.IMHP ---
History of Present Illness Date of Service: 08/02/22 Chief Complaint: SOB 71-year-old male with past medical history of diabetes, hypertension, CKD, History of ESBL presents the ED with complaints of shortness of breath. Patient reports that his symptoms initially started in June, worsened over the last 1 week. He has a cough, nonproductive, unable to clear his mucus, denies fever but has chills, reports no chest pain, no palpitations, no abdominal pain nausea or vomiting, endorses orthopnea and PND, also complains of lower extremity edema that have worsened over the last few weeks. Reports no diarrhea constipation, no urinary frequency urgency or dysuria. on arrival to the ED patient found to be 90% on room air at rest, placed on 2 L of oxygen satting 96%, respiratory rate of 26, otherwise stable Labs are significant for WBC count of 10.8, creatinine of 1.51 with a baseline of 1.8, BNP of 131, UA positive for nitrites, leukocyte Estrace, Chest x-ray shows lower airspace opacity concerning for aspiration versus pneumonia, increased right infrahillar fullness, nonspecific and small left-sided pleural effusion patient started on antibiotics and will be admitted for further management Review of Systems Review of Systems: Yes all other systems are reviewed and are negative [facility] Medical History Diabetes Hypertension Kidney disease Varicose veins of left lower extremity with inflammation Social History Household Members: Spouse Housing: House Do you presently have visiting nurse or other home services: No Alcohol intake: never Patient Tobacco Use Status: Never used Tobacco Smoked in Last 30 Days: No Use of substances other than those prescribed or required for medical reasons: No Advance Directives: Yes Advance Directives on File: Yes Advance Directives Date on File: 05/16/22 Nutrition Risks: No Nutritional Risk service: Yes Current occupational status: retired Meds Allergies Allergy/AdvReac Type Severity Reaction Status Date / Time Penicillins AdvReac Intermediate HALLUCINATIONS, Verified 08/02/22 16:58 SWEATS Active Medications: Current Medications Azithromycin 500 mg/ Sodium (Chloride) 250 mls @ 125 mls/hr IV ONCE ONE Stop: 08/02/22 23:15 Last Admin: 08/02/22 21:41 Dose: 125 mls/hr Pharmacy Consult (Consult Rx Perform Med Rec) 1 each MISCELLANE ONCE PRN PRN Reason: Consult order Home Medications Medication Instructions Recorded Confirmed Last Taken Type allopurinol 300 mg tablet 300 mg PO DAILY 11/03/20 08/02/22 08/02/22 History ascorbic acid (vitamin C) 1,000 mg 1,000 mg PO BID 11/03/20 08/02/22 08/02/22 History tablet (Vitamin C) cholecalciferol (vitamin D3) 50 50 mcg PO DAILY 11/03/20 08/02/22 08/02/22 History mcg (2,000 unit) capsule insulin aspart U-100 100 unit/mL 16 unit subcut DAILY@1130 11/03/20 08/02/22 08/02/22 History subcutaneous solution (Novolog U-100 Insulin aspart) insulin aspart U-100 100 unit/mL 20 unit subcut DAILY@1630 11/03/20 08/02/22 08/01/22 History subcutaneous solution (Novolog U-100 Insulin aspart) methenamine hippurate 1 gram tablet 1 g PO BID 11/03/20 08/02/22 08/02/22 History tamsulosin 0.4 mg capsule 0.4 mg PO BEDTIME 11/03/20 08/02/22 08/01/22 History torsemide 20 mg tablet 20 mg PO DAILY 11/03/20 08/02/22 08/02/22 History cyanocobalamin (vitamin B-12) 100 200 mcg PO DAILY 05/02/22 08/02/22 08/02/22 History mcg tablet insulin glargine 100 unit/mL (3 28 unit subcut BEDTIME 05/02/22 08/02/22 08/01/22 History mL) subcutaneous pen (Lantus Solostar U-100 Insulin) rosuvastatin 40 mg tablet 20 mg PO BEDTIME 05/02/22 08/02/22 08/01/22 History amlodipine 5 mg tablet 5 mg PO DAILY@1200 08/02/22 08/02/22 08/02/22 History insulin aspart U-100 100 unit/mL 8 unit subcut DAILY 08/02/22 08/02/22 08/02/22 History subcutaneous solution (Novolog U-100 Insulin aspart) Physical Exam Vital Signs and Narrative: Vital Signs: Last Vital Signs Temp 98.2 F 08/02/22 22:03 Pulse 80 08/02/22 22:03 Resp 24 H 08/02/22 22:03 BP 110/73 08/02/22 22:03 Pulse Ox 96 08/02/22 22:03 O2 Del Method Nasal Cannula 08/02/22 22:03 O2 Flow Rate 3 08/02/22 22:03 Oxygen Flow Rate 2 08/02/22 16:53 BMI result Body Mass Index 63.9 Const: Other: severely obese General: cooperative and no acute distress Orientation/consciousness: patient oriented x3 Eyes: General: appearance normal, both eyes and all related structures Resp: Other: limited exam due to obesity Effort & Inspection: normal respiratory effort Auscultation: clear to auscultation bilaterally Cardio: Rate: regular rate Rhythm: regular rhythm GI: Palpation (GI): Soft to palpation Auscultation: normal bowel sounds Skin: General skin exam: no rashes or lesions noted Neuro: General: patient oriented x3 Cognition (Neuro): normal cognition Extrem: Other: 2+ pitting edema General: Yes normal to inspection Results Labs 08/02/22 18:45 08/02/22 18:45 Labs: Laboratory Results - last 24 hr 08/02/22 08/02/22 08/02/22 18:45 18:45 18:45 MCV 91.5 MCH 27.9 MCHC 30.4 L RDW 16.0 Plt Count 191 MPV 10.0 Immature Gran % (Auto) 0.6 H Neut % (Auto) 82.4 H Lymph % (Auto) 7.4 L [place] % (Auto) 6.2 Eos % (Auto) 3.0 Baso % (Auto) 0.4 Lymph # (Auto) 0.8 L [place] # (Auto) 0.7 Eos # (Auto) 0.3 Baso # (Auto) 0.0 Abs Immat Gran (auto) 0.07 H Absolute Neuts (auto) 8.9 H Absolute Nucleated RBC 0.000 Nucleated RBC % (auto) 0.0 PT INR APTT Anion Gap 17 Estim Creat Clear Calc 79.0 Estimated GFR 46 Random Glucose 158 H Lactic Acid Calcium 8.6 D Magnesium 2.0 Total Bilirubin 1.0 AST 18 ALT 10 Alkaline Phosphatase 80 Troponin I High Sens B-Natriuretic Peptide 131 H Total Protein 6.4 L Albumin 3.5 Lipase 14 Urine Color Urine Appearance Urine pH Ur Specific [place] Urine Protein Urine Glucose (UA) Urine Ketones Urine Blood Urine Nitrite Ur Leukocyte Esterase Urine RBC Urine WBC Ur Squamous Epith Cells Urine Bacteria Hyaline Casts Influenza Type A (PCR) Influenza Type B (PCR) RSV RNA Qual (PCR) SARS-CoV-2 RNA (RT-PCR) 08/02/22 08/02/22 08/02/22 18:45 18:45 19:13 MCV MCH MCHC RDW Plt Count MPV Immature Gran % (Auto) Neut % (Auto) Lymph % (Auto) [place] % (Auto) Eos % (Auto) Baso % (Auto) Lymph # (Auto) [place] # (Auto) Eos # (Auto) Baso # (Auto) Abs Immat Gran (auto) Absolute Neuts (auto) Absolute Nucleated RBC Nucleated RBC % (auto) PT INR APTT Anion Gap Estim Creat Clear Calc Estimated GFR Random Glucose Lactic Acid 1.5 Calcium Magnesium Total Bilirubin AST ALT Alkaline Phosphatase Troponin I High Sens B-Natriuretic Peptide Total Protein Albumin Lipase Urine Color Yellow Urine Appearance Cloudy Urine pH 5.5 Ur Specific [place] 1.010 Urine Protein 100 (2+) H Urine Glucose (UA) Negative Urine Ketones Negative Urine Blood Trace H Urine Nitrite Positive H Ur Leukocyte Esterase Large (3+) H Urine RBC 0-2 Urine WBC >50 H Ur Squamous Epith Cells 0-2 Urine Bacteria 4+ Hyaline Casts 3-5 Influenza Type A (PCR) NEGATIVE Influenza Type B (PCR) NEGATIVE RSV RNA Qual (PCR) NEGATIVE SARS-CoV-2 RNA (RT-PCR) NEGATIVE 08/02/22 08/02/22 19:49 19:50 MCV MCH MCHC RDW Plt Count MPV Immature Gran % (Auto) Neut % (Auto) Lymph % (Auto) [place] % (Auto) Eos % (Auto) Baso % (Auto) Lymph # (Auto) [place] # (Auto) Eos # (Auto) Baso # (Auto) Abs Immat Gran (auto) Absolute Neuts (auto) Absolute Nucleated RBC Nucleated RBC % (auto) PT 17.4 H INR 1.5 H APTT 38.5 H Anion Gap Estim Creat Clear Calc Estimated GFR Random Glucose Lactic Acid Calcium Magnesium Total Bilirubin AST ALT Alkaline Phosphatase Troponin I High Sens 20.5 B-Natriuretic Peptide Total Protein Albumin Lipase Urine Color Urine Appearance Urine pH Ur Specific [place] Urine Protein Urine Glucose (UA) Urine Ketones Urine Blood Urine Nitrite Ur Leukocyte Esterase Urine RBC Urine WBC Ur Squamous Epith Cells Urine Bacteria Hyaline Casts Influenza Type A (PCR) Influenza Type B (PCR) RSV RNA Qual (PCR) SARS-CoV-2 RNA (RT-PCR) Imaging Radiologist's Impressions: Impressions Chest X-Ray 08/02/22 19:40 IMPRESSION: 1. New retrocardiac/left lower lobe airspace opacities concerning for aspiration or pneumonia. 2. Increased right infrahilar fullness, nonspecific, could be associated with an additional infiltrate in the setting of pneumonia. 3. Small left-sided pleural effusion. Recommend reimaging after treatment to rule out malignancy. Assessment and Plan (1) Community acquired pneumonia: Status: Acute (2) Acute exacerbation of CHF (congestive heart failure): Status: Acute (3) History of ESBL E. coli infection: Status: Acute (4) Acute UTI: Status: Acute Plan 71-year-old male with past medical history of diabetes, hypertension presents to the hospital with shortness of breath found to have pneumonia and evidence of CHF # community-acquired pneumonia - infiltrate seen on chest x-ray, dyspnea, low oxygen on room air at rest - will treat with IV antibiotics - follow cultures # acute CHF exacerbation - elevated BNP, has orthopnea, PND, lower extremity edema and pleural effusion on imaging - patient on 20 of torsemide at home - will start him on Lasix - will consult cardiology - echo done from 05/2022 shows normal ejection fraction # ESBL UTI - history of ESBL E coli - currently has positive UA, but asymptomatic - will treat with appropriate antibiotics - follow cultures # diabetes - continue home insulin - add low-dose sliding scale insulin - diabetic diet # on Eliquis - unclear etiology - continue that at this time DVT prophylaxis: Eliquis Time Spent With Patient Time: Total time managing care of this patient today ____ minutes. Quality Stroke Does the patient have a stroke diagnosis?: No VTE Prior VTE?: No VTE Risk Level:: Medical - moderate - high VTE Device Contraindication: Treatment Not Indicated VTE Drug Contraindication: N/A - Med Ordered
--- NOTE | 2022-08-02 23:22 | MHC.EDTECH ---
This tech with 2 other staff members got patient OOB and placed in hospital bed for comfort. Patient took a few steps to get in bed,Patient needed minimal assist but was really SOB. Belongings list was done and patient is resting at this time. Call estrada in reach
--- NOTE | 2022-08-02 23:25 | MHC.EDTECH ---
Patient voided 250CC of urine in urinal.
[2022-08-03] MEDS: Insulin Glargine,Hum.rec.anlog 100 UNIT/ML 10 ML VIAL 28 UNIT SUBCUT ×2 (00:31→21:17)
[2022-08-03] MEDS: Tamsulosin HCL 0.4 MG CAPSULE PO ×2 (00:32→21:16)
[2022-08-03] MEDS: 0.9 % Sodium Chloride Flush 3 ML SYRINGE IVFLUSH ×3 (00:32→19:47)
[2022-08-03 00:35] LABS: Glucose, Whole Blood 232 mg/dL (60-115)
[2022-08-03] MEDS: Furosemide 40 MG/4 ML VIAL IVPUSH ×3 (00:35→16:58)
[2022-08-03] MEDS: Apixaban 5 MG TABLET PO ×3 (01:26→21:16)
[2022-08-03 02:15] VITALS: BP 154/90; PULSE 83; RESP 22; TEMP 36.8; O2SAT 97
--- NOTE | 2022-08-03 02:16 | MHC.EDTECH ---
Vitals taken,Patient was incont. of a large amount of urine,Patient was cleaned and new pads applied to bill-area. Patient is comfortable and call estrada in reach.
[2022-08-03 06:53] LABS: Alanine Aminotransferase 8 U/L (0-40); Albumin Level 3.3 g/dL (3.5-5.0); Alkaline Phosphatase 87 U/L (39-117); Anion Gap 10 (12-20); Aspartate Amino Transferase 10 U/L (5-37); Bilirubin Total 1.1 mg/dL (0.0-1.0); Blood Urea Nitrogen 26 mg/dL (9-16); Calcium 8.4 mg/dL (8.4-10.2); Carbon Dioxide 30 mmol/L (22-29); Chloride 105 mmol/L (96-108); Creatinine Clr Calc Pharmacy 73.7; Estimated Glomerular Filt Rate 42; Glucose Random 168 mg/dL (60-115); Potassium 3.9 mmol/L (3.3-5.1); Sodium 141 mmol/L (135-145); Total Protein 6.1 g/dL (6.5-8.0)
--- NOTE | 2022-08-03 07:00 | CA_ITS ---
Transthoracic Echocardiogram Patient (Last, First, Middle): Geovanni Jimenez H Gender: Male Date of : 1950 Age: 71 Procedure Date: 08/03/2022 Procedure Type: Transthoracic Echocardiogram Location: ER Height: 177.8 cm Weight: 201.85 kg BSA: 2.93 m2 Heart Rate: 100 bpm BP: 154 / 90 mmHg Customer Insight Analyst: Referring MD: Alejandra Urban MD Picker: Reji Bailey MD Symptoms: CHF? Study Quality: Technically Difficult ECG Rhythm: Atrial Fibrillation Conclusions: - 1. LV systolic function is normal with mild LVH with possible pseudonormal filling pattern 2. Significant elevated right atrial pressures with severely elevated right ventricular systolic pressure 3. Technically limited study due to patient's body habitus Findings Procedure Information Contrast agent, definity, is being given per protocol without apparent complications. The quality of the study was technically difficult. The study quality is limited by patients body habitus. Left Ventricle Normal left ventricular size and systolic function. There is mildly increased left ventricular wall thickness. The visually estimated ejection fraction is between 60-65%. Spectral Doppler is indicative of a pseudonormal filling pattern. Right Ventricle The right ventricle was not well visualized. right ventricular appears to be significantly enlarged although unable to be visualized in its entirety Tricuspid Valve Significantly elevated right atrial pressure. Moderate to severe pulmonary hypertension is present. Prior Study Comparison Changes noted compared to prior study dated: 05/09/2022. RV systolic pressure is significantly increased Measurements 2D Linear Measurements IVSd: 1.34 0.6-0.9/0.6-1.0 cm LVIDd: 6.00 3.9-5.3/4.2-5.9 cm LVIDd Index: 2.05 2.4-3.2/2.2-3.1 cm/m2 LVIDs: 4.23 2.0-3.6 cm LVPWd: 1.35 0.7-1.1 cm LA Diam: 5.90 2.7-3.8/3.0-4.0 cm LAIDs Index: 2.01 1.5-2.3 cm/m2 LV Mass: 457.84 67-162/88-224 g LV Mass Index: 156.26 43-95/49-115 g/m2 LVOT Diam: 2.40 3.0+(-)1.3 cm 2D Systolic Function EF 4C: 57.60 >55% EF 2C: 68.10 >55% EF BiP: 62.90 >55% Mitral Valve MV VTI: 0.51 MV Pk Omar: 1.66 MV Mn Omar: 0.87 MV Pk Grad: 11.00 MV Mn Grad: 4.00 MV Pk E: 1.40 MV Decel Time: 437.00 E'Lateral: 12.10 E'Medial: 8.16 E/E' Med: 17.20 E/E' Lat: 11.60 PHT: 128.00 MVA PHT: 1.72 MVA Continuity: 1.95 Decel Johnston: 3.20 Aortic Valve AoV Pk Omar: 2.04 AoV Mn Omar: 1.29 AoV VTI: 0.42 AoV Pk Grad: 17.00 Aov Mn Grad: 8.00 ITZ Cont.VTI: 2.36 LVOT LVOT Pk Omar: 0.97 LVOT Mn Omar: 0.68 LVOT VTI: 0.22 LVOT Pk Grad: 4.00 LVOT Mn Grad: 3.00 LVOT Diam: 2.40 LVOT Area: 4.52 Diastolic Function MV Pk E: 1.40 E'Medial: 8.16 E/E' Med: 17.20 E' Laterial: 12.10 E/E' Lat: 11.60 Right Ventricle TAPSE (mm): 23.30 TVS' Omar: 10.60 Tricuspid Valve TR Pk Omar: 3.70 TR Pk Grad: 55.00 RA Press: 15.00 RVSP: 70.00 Great Vessels Aorta Sinus of Valsalva: 3.60 2.0-3.5 cm Pulmonary Valve PV Pk Omar: 1.24 Peak PV Grad: 6.00 Updated in Other Vendor System with Status of Final Reji Bailey MD electronically signed on 08/03/2022 3:31:07 PM with status of Final
[2022-08-03 07:30] LABS: Glucose, Whole Blood 149 mg/dL (60-115)
[2022-08-03] MEDS: Insulin Lispro 100 UNIT/ML 3 ML VIAL 8 UNIT SUBCUT (08:00)
[2022-08-03] MEDS: allopurinoL 300 MG TABLET PO (09:09)
[2022-08-03] MEDS: Ascorbic Acid 500 MG TABLET 1000 MG PO ×2 (09:09→21:15)
[2022-08-03] MEDS: Cholecalciferol (Vitamin D3) 25 MCG TABLET 50 MCG PO (09:09)
--- NOTE | 2022-08-03 09:13 | HO.PM.IMPN ---
Subjective Subjective Date of Service: 08/03/22 Interval History: f/u on heart failure and PNA Interval history: Still sob Physical Exam Vital Signs: Vital Signs: Last Vital Signs Temp 98.2 F 08/03/22 02:15 Pulse 83 08/03/22 02:15 Resp 22 H 08/03/22 02:15 BP 154/90 H 08/03/22 02:15 Pulse Ox 97 08/03/22 02:15 O2 Del Method Nasal Cannula 08/03/22 02:15 O2 Flow Rate 3 08/03/22 02:15 Oxygen Flow Rate 2 08/02/22 16:53 BMI result Body Mass Index 63.9 Const: Other: General: AO X 3, in mild to mod resp distre Resp: diminished bila CVS: S1,S2,RRR GI: +BS, NT, no distention Skin: No rash, extensive chronic venous stasis, stasis dermatitis Neuro: motor grossly intact Psych: appropriate affect Objective Data Active Medications Acetaminophen (Acetaminophen 325 Mg Tablet) 650 mg PO Q6H PRN PRN Reason: Pain, Mild (Pain Scale 1-3) Allopurinol (Allopurinol 300 Mg Tablet) 300 mg PO DAILY [facility] Amlodipine Besylate (Amlodipine Besylate 5 Mg Tablet) 5 mg PO DAILY@1200 [place]; Protocol Apixaban (Apixaban 5 Mg Tablet) 5 mg PO BID [facility] Last Admin: 08/03/22 01:26 Dose: 5 mg Documented By: STEPHANIE Ascorbic Acid (Ascorbic Acid 500 Mg Tablet) 1,000 mg PO BID [facility] Atorvastatin Calcium (Atorvastatin Calcium 80 Mg Tablet) 80 mg PO BEDTIME [facility] Cyanocobalamin (Cyanocobalamin (Vitamin B-12) 100 Mcg Tablet) 200 mcg PO DAILY [facility] Docusate Sodium (Docusate Sodium 100 Mg Capsule) 100 mg PO DAILY PRN PRN Reason: Constipation Furosemide (Furosemide 40 Mg/4 Ml Vial) 40 mg IVPUSH BID@0900,1800 [place]; Protocol Last Admin: 08/03/22 00:35 Dose: 40 mg Documented By: STEPHANIE Glucose (Glucose Gel 15 Gm Gel..Gram.) 15 gm PO Q15M PRN; Protocol PRN Reason: per Hypoglycemia Standing Ord. Azithromycin 500 mg/ Sodium (Chloride) 250 mls @ 125 mls/hr IV Q24H [facility] Dextrose (D10) 250 mls @ 750 mls/hr IV Q15M PRN; Protocol PRN Reason: per Hypoglycemia Standing Ord. Meropenem 1 gm/ Sodium (Chloride) 100 mls @ 200 mls/hr IV Q8H [facility] Last Infusion: 08/03/22 09:08 Dose: 0 mls/hr Documented By: DK Insulin Glargine (Insulin Glargine,Hum.Rec.Anlog 100 Unit/Ml 10 Ml Vial) 28 unit SUBCUT BEDTIME [facility] Last Admin: 08/03/22 00:31 Dose: 28 unit Documented By: STEPHANIE Insulin Human Lispro (Insulin Lispro 100 Unit/Ml 3 Ml Vial) 16 unit SUBCUT DAILY@1130 [facility] Insulin Human Lispro (Insulin Lispro 100 Unit/Ml 3 Ml Vial) 8 unit SUBCUT DAILY@0730 [facility] Last Admin: 08/03/22 08:00 Dose: 8 unit Documented By: DK Insulin Human Lispro (Insulin Lispro 100 Unit/Ml 3 Ml Vial) 20 unit SUBCUT DAILY@1630 [facility] Insulin Human Lispro (Insulin Lispro 100 Unit/Ml 3 Ml Vial) 0 unit SUBCUT QIDACHS [facility]; Protocol Last Admin: 08/03/22 08:04 Dose: Not Given Documented By: DK Non-Admin Reason: No Insulin Coverage Non-Formulary Medication (Methenamine Hippurate) 1 gm PO BID [facility] Ondansetron HCl (Ondansetron Hcl 4 Mg/2 Ml Vial) 4 mg IVPUSH Q8H PRN PRN Reason: Nausea and Vomiting Pharmacy Consult (Consult Rx Perform Med Rec) 1 each MISCELLANE ONCE PRN PRN Reason: Consult order Sodium Chloride (0.9 % Sodium Chloride Flush 3 Ml Syringe) 3 ml IVFLUSH QSHIFT [facility] Last Admin: 08/03/22 08:03 Dose: Not Given Documented By: DK Non-Admin Reason: Med Not Available Tamsulosin HCl (Tamsulosin Hcl 0.4 Mg Capsule) 0.4 mg PO BEDTIME [facility] Last Admin: 08/03/22 00:32 Dose: 0.4 mg Documented By: STEPHANIE Vitamin D (Cholecalciferol (Vitamin D3) 25 Mcg Tablet) 50 mcg PO DAILY [facility] Labs 08/02/22 18:45 08/03/22 06:05 Labs: Laboratory Results - last 24 hr 08/02/22 08/02/22 08/02/22 18:45 18:45 18:45 MCV 91.5 MCH 27.9 MCHC 30.4 L RDW 16.0 Plt Count 191 MPV 10.0 Immature Gran % (Auto) 0.6 H Neut % (Auto) 82.4 H Lymph % (Auto) 7.4 L [place] % (Auto) 6.2 Eos % (Auto) 3.0 Baso % (Auto) 0.4 Lymph # (Auto) 0.8 L [place] # (Auto) 0.7 Eos # (Auto) 0.3 Baso # (Auto) 0.0 Abs Immat Gran (auto) 0.07 H Absolute Neuts (auto) 8.9 H Absolute Nucleated RBC 0.000 Nucleated RBC % (auto) 0.0 PT INR APTT Anion Gap 17 Estim Creat Clear Calc 79.0 Estimated GFR 46 POC Glucose Random Glucose 158 H Lactic Acid Calcium 8.6 D Magnesium 2.0 Total Bilirubin 1.0 AST 18 ALT 10 Alkaline Phosphatase 80 Troponin I High Sens B-Natriuretic Peptide 131 H Total Protein 6.4 L Albumin 3.5 Lipase 14 Urine Color Urine Appearance Urine pH Ur Specific [place] Urine Protein Urine Glucose (UA) Urine Ketones Urine Blood Urine Nitrite Ur Leukocyte Esterase Urine RBC Urine WBC Ur Squamous Epith Cells Urine Bacteria Hyaline Casts Influenza Type A (PCR) Influenza Type B (PCR) RSV RNA Qual (PCR) SARS-CoV-2 RNA (RT-PCR) 08/02/22 08/02/22 08/02/22 18:45 18:45 19:13 MCV MCH MCHC RDW Plt Count MPV Immature Gran % (Auto) Neut % (Auto) Lymph % (Auto) [place] % (Auto) Eos % (Auto) Baso % (Auto) Lymph # (Auto) [place] # (Auto) Eos # (Auto) Baso # (Auto) Abs Immat Gran (auto) Absolute Neuts (auto) Absolute Nucleated RBC Nucleated RBC % (auto) PT INR APTT Anion Gap Estim Creat Clear Calc Estimated GFR POC Glucose Random Glucose Lactic Acid 1.5 Calcium Magnesium Total Bilirubin AST ALT Alkaline Phosphatase Troponin I High Sens B-Natriuretic Peptide Total Protein Albumin Lipase Urine Color Yellow Urine Appearance Cloudy Urine pH 5.5 Ur Specific [place] 1.010 Urine Protein 100 (2+) H Urine Glucose (UA) Negative Urine Ketones Negative Urine Blood Trace H Urine Nitrite Positive H Ur Leukocyte Esterase Large (3+) H Urine RBC 0-2 Urine WBC >50 H Ur Squamous Epith Cells 0-2 Urine Bacteria 4+ Hyaline Casts 3-5 Influenza Type A (PCR) NEGATIVE Influenza Type B (PCR) NEGATIVE RSV RNA Qual (PCR) NEGATIVE SARS-CoV-2 RNA (RT-PCR) NEGATIVE 08/02/22 08/02/22 08/03/22 19:49 19:50 00:30 MCV MCH MCHC RDW Plt Count MPV Immature Gran % (Auto) Neut % (Auto) Lymph % (Auto) [place] % (Auto) Eos % (Auto) Baso % (Auto) Lymph # (Auto) [place] # (Auto) Eos # (Auto) Baso # (Auto) Abs Immat Gran (auto) Absolute Neuts (auto) Absolute Nucleated RBC Nucleated RBC % (auto) PT 17.4 H INR 1.5 H APTT 38.5 H Anion Gap Estim Creat Clear Calc Estimated GFR POC Glucose 232 H Random Glucose Lactic Acid Calcium Magnesium Total Bilirubin AST ALT Alkaline Phosphatase Troponin I High Sens 20.5 B-Natriuretic Peptide Total Protein Albumin Lipase Urine Color Urine Appearance Urine pH Ur Specific [place] Urine Protein Urine Glucose (UA) Urine Ketones Urine Blood Urine Nitrite Ur Leukocyte Esterase Urine RBC Urine WBC Ur Squamous Epith Cells Urine Bacteria Hyaline Casts Influenza Type A (PCR) Influenza Type B (PCR) RSV RNA Qual (PCR) SARS-CoV-2 RNA (RT-PCR) 08/03/22 08/03/22 06:05 07:25 MCV MCH MCHC RDW Plt Count MPV Immature Gran % (Auto) Neut % (Auto) Lymph % (Auto) [place] % (Auto) Eos % (Auto) Baso % (Auto) Lymph # (Auto) [place] # (Auto) Eos # (Auto) Baso # (Auto) Abs Immat Gran (auto) Absolute Neuts (auto) Absolute Nucleated RBC Nucleated RBC % (auto) PT INR APTT Anion Gap 10 L Estim Creat Clear Calc 73.7 Estimated GFR 42 POC Glucose 149 H Random Glucose 168 H Lactic Acid Calcium 8.4 Magnesium Total Bilirubin 1.1 H AST 10 ALT 8 Alkaline Phosphatase 87 Troponin I High Sens B-Natriuretic Peptide Total Protein 6.1 L Albumin 3.3 L Lipase Urine Color Urine Appearance Urine pH Ur Specific [place] Urine Protein Urine Glucose (UA) Urine Ketones Urine Blood Urine Nitrite Ur Leukocyte Esterase Urine RBC Urine WBC Ur Squamous Epith Cells Urine Bacteria Hyaline Casts Influenza Type A (PCR) Influenza Type B (PCR) RSV RNA Qual (PCR) SARS-CoV-2 RNA (RT-PCR) Microbiology Microbiology Results: Microbiology 08/02/22 Unknown Urine Culture - Preliminary Urine clean catch - Urine scott top Gram negative waqar Assessment and Plan (1) Acute exacerbation of CHF (congestive heart failure): Status: Acute (2) Community acquired pneumonia: Status: Acute Plan 71-year-old male with past medical history of diabetes, hypertension presents to the hospital with shortness of breath found to have pneumonia and evidence of CHF #? community-acquired pneumonia -no fever, nl WBC -Ceftriaxone and Azithro started 08/02 ?#? acute CHF exacerbation, report much weight gain -Torsemide at home, Lasix IV 40 bid -Monitor I/O, weight, salt intake -last echo 05/2022 with normal EF 55%, cardiology to decide if needs another -cardiology consult pending #? ESBL UTI -? history of ESBL E coli -? currently has positive UA,? but asymptomatic -Treat if culture positive #? diabetes--Basal + SSI, diabetic diet, monitor sugars #? Use of Eliquis--unclear, will investigate further but for now continue #Super morbid obesity--weight loss advise to minimize health impact ?DVT prophylaxis:? Eliquis need for inpat: acute heart failure management with IV diuretics and PNA on IV Abx Time Spent With Patient Time: Total time managing care of this patient today ____ minutes. Quality Stroke Does the patient have a stroke diagnosis?: No VTE Prior VTE?: No VTE Risk Level:: Medical - moderate - high VTE Device Contraindication: Treatment Not Indicated VTE Drug Contraindication: N/A - Med Ordered
[2022-08-03] MEDS: Cyanocobalamin (Vitamin B-12) 100 MCG TABLET 200 MCG PO (11:10)
[2022-08-03] MEDS: cefTRIAXone sodium 1 GM in 0.9 % Sodium Chloride 50 ML IV (11:11)
[2022-08-03 11:41] VITALS: BP 140/68; PULSE 86; RESP 19; TEMP 36.8; O2SAT 97
[2022-08-03 11:48] LABS: Glucose, Whole Blood 172 mg/dL (60-115)
--- NOTE | 2022-08-03 12:47 | PC.NURSE ---
pt sitting up in bed, slightly sob, was previously tachypnic in the high 30s but has reduced respirations to around 19. denies pain. at bedside. awaiting bed assignment. in no apparent distress. wctm.
--- NOTE | 2022-08-03 13:04 | P.CONCA_ITS ---
History of Present Illness History of Present Illness Date of Service: 08/03/22 Requesting physician: [facility]ood [facility] Consult reason: atrial fibrillation and congestive heart failure Chief complaint: CHF, PNA Narrative: I was consulted to see Geovanni in cardiology consultation today for worsening shortness of breath and findings suggestive congestive heart failure. He was recently discharged from halfway facility after a long rehab and over the last month has had increasing exertional shortness of breath with shortness of breath walking minimal distances. He does not get short of breath when he uses CPAP at nighttime and sleeps in a semi reclining position. Otherwise he has had progressive weight gain, abdominal distension, significant leg edema. There were weeping leg edema which improved with compression bandage ease. Patient has had progressive shortness right came to the emergency room was noted to have about 30 lb weight gain. He denies any fever chills. Does have a dry cough. Denies any wheezing. He still appears to be short of breath. Did receive IV Lasix and has had urine output but not able to pee in a urinal to measure adequate outputs. His BNP only was mildly elevated. Noted to be in atrial fibrillation with borderline rate control. Overall seems like he has been atrial fibrillation for the last many kg over the last several months. He said he had seen Dr. Ann in the past because of atrial fibrillation was started on Eliquis. Recently lot of his medications were changed because of marked hyperkalemia and was admitted in April with that and his Aldactone and lisinopril were discontinued. He has prior history of morbid obesity, sleep apnea, chronic kidney disease, hypertension, diabetes. He does not recall ever being told that he has congestive heart failure but he was on diuretic therapy for a long time and suspected that he had diagnosis of heart failure preserved ejection fraction the past. Echocardiogram done in May was a poor quality with LVEF of 50-55% with what appears to be significantly elevated right atrial pressures. Review of Systems Constitutional: Constitutional: Reports malaise, Reports weakness and Reports weight gain Cardiovascular: Cardiovascular: Reports Abdominal Distension, Denies chest pain, Reports leg edema, Denies lightheadedness, Denies Loss of Consciousness, Denies palpitations and Reports dyspnea on exertion Respiratory: Respiratory: Reports no additional respiratory complaints and Reports dyspnea on exertion Gastrointestinal: Gastrointestinal: Reports no additional gastrointestinal complaints Genitourinary: Genitourinary: Reports no additional male genitourinary complaints Neurologic: Reports system reviewed and no additional complaints, except as documented and Reports weakness Psychiatric: Psychiatric: Reports no additional psychiatric complaints Endocrine: Endocrine: Denies palpitations PMFSH Past Medical History Medical History Diabetes Hypertension Kidney disease Varicose veins of left lower extremity with inflammation Social History Social History Household Members: Spouse Housing: House Do you presently have visiting nurse or other home services: No Alcohol intake: never Patient Tobacco Use Status: Never used Tobacco Smoked in Last 30 Days: No Use of substances other than those prescribed or required for medical reasons: No Advance Directives: Yes Advance Directives on File: Yes Advance Directives Date on File: 05/16/22 Nutrition Risks: No Nutritional Risk service: Yes Current occupational status: retired Meds Allergies Allergy/AdvReac Type Severity Reaction Status Date / Time Penicillins AdvReac Intermediate HALLUCINATIONS, Verified 08/02/22 16:58 SWEATS Active Medications: Current Medications Acetaminophen (Acetaminophen 325 Mg Tablet) 650 mg PO Q6H PRN PRN Reason: Pain, Mild (Pain Scale 1-3) Allopurinol (Allopurinol 300 Mg Tablet) 300 mg PO DAILY [facility] Last Admin: 08/03/22 09:09 Dose: 300 mg Amlodipine Besylate (Amlodipine Besylate 5 Mg Tablet) 5 mg PO DAILY@1200 [facility]; Protocol Apixaban (Apixaban 5 Mg Tablet) 5 mg PO BID [facility] Last Admin: 08/03/22 09:09 Dose: 5 mg Ascorbic Acid (Ascorbic Acid 500 Mg Tablet) 1,000 mg PO BID [facility] Last Admin: 08/03/22 09:09 Dose: 1,000 mg Atorvastatin Calcium (Atorvastatin Calcium 80 Mg Tablet) 80 mg PO BEDTIME [facility] Cyanocobalamin (Cyanocobalamin (Vitamin B-12) 100 Mcg Tablet) 200 mcg PO DAILY [facility] Last Admin: 08/03/22 11:10 Dose: 200 mcg Docusate Sodium (Docusate Sodium 100 Mg Capsule) 100 mg PO DAILY PRN PRN Reason: Constipation Furosemide (Furosemide 40 Mg/4 Ml Vial) 40 mg IVPUSH BID@0900,1800 [facility]; Protocol Last Admin: 08/03/22 09:11 Dose: 40 mg Glucose (Glucose Gel 15 Gm Gel..Gram.) 15 gm PO Q15M PRN; Protocol PRN Reason: per Hypoglycemia Standing Ord. Azithromycin 500 mg/ Sodium (Chloride) 250 mls @ 125 mls/hr IV Q24H [facility] Dextrose (D10) 250 mls @ 750 mls/hr IV Q15M PRN; Protocol PRN Reason: per Hypoglycemia Standing Ord. Meropenem 1 gm/ Sodium (Chloride) 100 mls @ 200 mls/hr IV Q8H [facility] Last Infusion: 08/03/22 09:08 Dose: Infused Ceftriaxone Sodium 1 gm/ (Sodium Chloride) 50 mls @ 100 mls/hr IV Q24H [facility] Last Infusion: 08/03/22 12:25 Dose: Infused Insulin Glargine (Insulin Glargine,Hum.Rec.Anlog 100 Unit/Ml 10 Ml Vial) 28 unit SUBCUT BEDTIME [facility] Last Admin: 08/03/22 00:31 Dose: 28 unit Insulin Human Lispro (Insulin Lispro 100 Unit/Ml 3 Ml Vial) 16 unit SUBCUT DAILY@1130 [facility] Insulin Human Lispro (Insulin Lispro 100 Unit/Ml 3 Ml Vial) 8 unit SUBCUT DAILY@0730 [facility] Last Admin: 08/03/22 08:00 Dose: 8 unit Insulin Human Lispro (Insulin Lispro 100 Unit/Ml 3 Ml Vial) 20 unit SUBCUT DAILY@1630 [facility] Insulin Human Lispro (Insulin Lispro 100 Unit/Ml 3 Ml Vial) 0 unit SUBCUT QIDACHS [facility]; Protocol Last Admin: 08/03/22 08:04 Dose: Not Given Non-Formulary Medication (Methenamine Hippurate) 1 gm PO BID [facility] Ondansetron HCl (Ondansetron Hcl 4 Mg/2 Ml Vial) 4 mg IVPUSH Q8H PRN PRN Reason: Nausea and Vomiting Pharmacy Consult (Consult Rx Perform Med Rec) 1 each MISCELLANE ONCE PRN PRN Reason: Consult order Sodium Chloride (0.9 % Sodium Chloride Flush 3 Ml Syringe) 3 ml IVFLUSH QSHIFT [facility] Last Admin: 08/03/22 08:03 Dose: Not Given Tamsulosin HCl (Tamsulosin Hcl 0.4 Mg Capsule) 0.4 mg PO BEDTIME [facility] Last Admin: 08/03/22 00:32 Dose: 0.4 mg Vitamin D (Cholecalciferol (Vitamin D3) 25 Mcg Tablet) 50 mcg PO DAILY [facility] Last Admin: 08/03/22 09:09 Dose: 50 mcg Home Medications Medication Instructions Recorded Confirmed Last Taken Type allopurinol 300 mg tablet 300 mg PO DAILY 11/03/20 08/02/22 08/02/22 History ascorbic acid (vitamin C) 1,000 mg 1,000 mg PO BID 11/03/20 08/02/22 08/02/22 History tablet (Vitamin C) cholecalciferol (vitamin D3) 50 50 mcg PO DAILY 11/03/20 08/02/22 08/02/22 History mcg (2,000 unit) capsule insulin aspart U-100 100 unit/mL 16 unit subcut DAILY@1130 11/03/20 08/02/22 08/02/22 History subcutaneous solution (Novolog U-100 Insulin aspart) insulin aspart U-100 100 unit/mL 20 unit subcut DAILY@1630 11/03/20 08/02/22 08/01/22 History subcutaneous solution (Novolog U-100 Insulin aspart) methenamine hippurate 1 gram tablet 1 g PO BID 11/03/20 08/02/22 08/02/22 History tamsulosin 0.4 mg capsule 0.4 mg PO BEDTIME 11/03/20 08/02/22 08/01/22 History torsemide 20 mg tablet 20 mg PO DAILY 11/03/20 08/02/22 08/02/22 History cyanocobalamin (vitamin B-12) 100 200 mcg PO DAILY 05/02/22 08/02/22 08/02/22 History mcg tablet insulin glargine 100 unit/mL (3 28 unit subcut BEDTIME 05/02/22 08/02/22 08/01/22 History mL) subcutaneous pen (Lantus Solostar U-100 Insulin) rosuvastatin 40 mg tablet 20 mg PO BEDTIME 05/02/22 08/02/22 08/01/22 History amlodipine 5 mg tablet 5 mg PO DAILY@1200 08/02/22 08/02/22 08/02/22 History insulin aspart U-100 100 unit/mL 8 unit subcut DAILY 08/02/22 08/02/22 08/02/22 History subcutaneous solution (Novolog U-100 Insulin aspart) Physical Exam Vital Signs: Vital Signs: Last Vital Signs Temp 98.3 F 08/03/22 11:41 Pulse 86 08/03/22 11:41 Resp 19 08/03/22 11:41 BP 140/68 H 08/03/22 11:41 Pulse Ox 97 08/03/22 11:41 O2 Del Method Room Air 08/03/22 11:41 O2 Flow Rate 3 08/03/22 02:15 Oxygen Flow Rate 2 08/02/22 16:53 BMI result Body Mass Index 63.9 Const: General: cooperative, alert, awake and in distress moderate and respiratory Nutritional Appearance: obese morbidly obese Orientation/co nsciousness: patient oriented x3 HEENT: Head: Yes normocephalic and Yes atraumatic Neck: Neck: Yes trachea midline, Yes supple and Yes JVD Resp: Effort & Inspection: normal respiratory effort Auscultation: no rales, no wheezes and diminished lung sounds Cardio: Jugular venous distension: JVD Rhythm: abnormal rhythm irregularly irregular Heart sounds: S1 normal heart sound present, S2 normal heart sound present, no click, no gallops, no murmurs and no rubs GI: Inspection: Yes distended and Yes Abdominal panniculus present Auscultation: normal bowel sounds Skin: General skin exam: no rashes or lesions noted Neuro: General: patient oriented x3 and no focal motor deficits Extrem: General: No clubbing, No cyanosis and Yes edema Objective Labs and Meds 08/02/22 18:45 08/03/22 06:05 Lab results: Laboratory Results - last 24 hr 08/02/22 08/02/22 08/02/22 18:45 18:45 18:45 WBC 10.8 RBC 3.77 L Hgb 10.5 L Hct 34.5 L MCV 91.5 MCH 27.9 MCHC 30.4 L RDW 16.0 Plt Count 191 MPV 10.0 Immature Gran % (Auto) 0.6 H Neut % (Auto) 82.4 H Lymph % (Auto) 7.4 L [place] % (Auto) 6.2 Eos % (Auto) 3.0 Baso % (Auto) 0.4 Lymph # (Auto) 0.8 L [place] # (Auto) 0.7 Eos # (Auto) 0.3 Baso # (Auto) 0.0 Abs Immat Gran (auto) 0.07 H Absolute Neuts (auto) 8.9 H Absolute Nucleated RBC 0.000 Nucleated RBC % (auto) 0.0 PT INR APTT Sodium 141 Potassium 4.7 Chloride 105 Carbon Dioxide 24 Anion Gap 17 BUN 28 H Creatinine 1.51 H Estim Creat Clear Calc 79.0 Estimated GFR 46 POC Glucose Random Glucose 158 H Lactic Acid Calcium 8.6 D Magnesium 2.0 Total Bilirubin 1.0 AST 18 ALT 10 Alkaline Phosphatase 80 Troponin I High Sens B-Natriuretic Peptide 131 H Total Protein 6.4 L Albumin 3.5 Lipase 14 Urine Color Urine Appearance Urine pH Ur Specific [place] Urine Protein Urine Glucose (UA) Urine Ketones Urine Blood Urine Nitrite Ur Leukocyte Esterase Urine RBC Urine WBC Ur Squamous Epith Cells Urine Bacteria Hyaline Casts Influenza Type A (PCR) Influenza Type B (PCR) RSV RNA Qual (PCR) SARS-CoV-2 RNA (RT-PCR) 08/02/22 08/02/22 08/02/22 18:45 18:45 19:13 WBC RBC Hgb Hct MCV MCH MCHC RDW Plt Count MPV Immature Gran % (Auto) Neut % (Auto) Lymph % (Auto) [place] % (Auto) Eos % (Auto) Baso % (Auto) Lymph # (Auto) [place] # (Auto) Eos # (Auto) Baso # (Auto) Abs Immat Gran (auto) Absolute Neuts (auto) Absolute Nucleated RBC Nucleated RBC % (auto) PT INR APTT Sodium Potassium Chloride Carbon Dioxide Anion Gap BUN Creatinine Estim Creat Clear Calc Estimated GFR POC Glucose Random Glucose Lactic Acid 1.5 Calcium Magnesium Total Bilirubin AST ALT Alkaline Phosphatase Troponin I High Sens B-Natriuretic Peptide Total Protein Albumin Lipase Urine Color Yellow Urine Appearance Cloudy Urine pH 5.5 Ur Specific [place] 1.010 Urine Protein 100 (2+) H Urine Glucose (UA) Negative Urine Ketones Negative Urine Blood Trace H Urine Nitrite Positive H Ur Leukocyte Esterase Large (3+) H Urine RBC 0-2 Urine WBC >50 H Ur Squamous Epith Cells 0-2 Urine Bacteria 4+ Hyaline Casts 3-5 Influenza Type A (PCR) NEGATIVE Influenza Type B (PCR) NEGATIVE RSV RNA Qual (PCR) NEGATIVE SARS-CoV-2 RNA (RT-PCR) NEGATIVE 08/02/22 08/02/22 08/03/22 19:49 19:50 00:30 WBC RBC Hgb Hct MCV MCH MCHC RDW Plt Count MPV Immature Gran % (Auto) Neut % (Auto) Lymph % (Auto) [place] % (Auto) Eos % (Auto) Baso % (Auto) Lymph # (Auto) [place] # (Auto) Eos # (Auto) Baso # (Auto) Abs Immat Gran (auto) Absolute Neuts (auto) Absolute Nucleated RBC Nucleated RBC % (auto) PT 17.4 H INR 1.5 H APTT 38.5 H Sodium Potassium Chloride Carbon Dioxide Anion Gap BUN Creatinine Estim Creat Clear Calc Estimated GFR POC Glucose 232 H Random Glucose Lactic Acid Calcium Magnesium Total Bilirubin AST ALT Alkaline Phosphatase Troponin I High Sens 20.5 B-Natriuretic Peptide Total Protein Albumin Lipase Urine Color Urine Appearance Urine pH Ur Specific [place] Urine Protein Urine Glucose (UA) Urine Ketones Urine Blood Urine Nitrite Ur Leukocyte Esterase Urine RBC Urine WBC Ur Squamous Epith Cells Urine Bacteria Hyaline Casts Influenza Type A (PCR) Influenza Type B (PCR) RSV RNA Qual (PCR) SARS-CoV-2 RNA (RT-PCR) 08/03/22 08/03/22 08/03/22 06:05 07:25 11:44 WBC RBC Hgb Hct MCV MCH MCHC RDW Plt Count MPV Immature Gran % (Auto) Neut % (Auto) Lymph % (Auto) [place] % (Auto) Eos % (Auto) Baso % (Auto) Lymph # (Auto) [place] # (Auto) Eos # (Auto) Baso # (Auto) Abs Immat Gran (auto) Absolute Neuts (auto) Absolute Nucleated RBC Nucleated RBC % (auto) PT INR APTT Sodium 141 Potassium 3.9 Chloride 105 Carbon Dioxide 30 H Anion Gap 10 L BUN 26 H Creatinine 1.62 H Estim Creat Clear Calc 73.7 Estimated GFR 42 POC Glucose 149 H 172 H Random Glucose 168 H Lactic Acid Calcium 8.4 Magnesium Total Bilirubin 1.1 H AST 10 ALT 8 Alkaline Phosphatase 87 Troponin I High Sens B-Natriuretic Peptide Total Protein 6.1 L Albumin 3.3 L Lipase Urine Color Urine Appearance Urine pH Ur Specific [place] Urine Protein Urine Glucose (UA) Urine Ketones Urine Blood Urine Nitrite Ur Leukocyte Esterase Urine RBC Urine WBC Ur Squamous Epith Cells Urine Bacteria Hyaline Casts Influenza Type A (PCR) Influenza Type B (PCR) RSV RNA Qual (PCR) SARS-CoV-2 RNA (RT-PCR) Imaging Radiologist's impression: Impressions Chest X-Ray 08/02/22 19:40 IMPRESSION: 1. New retrocardiac/left lower lobe airspace opacities concerning for aspiration or pneumonia. 2. Increased right infrahilar fullness, nonspecific, could be associated with an additional infiltrate in the setting of pneumonia. 3. Small left-sided pleural effusion. Recommend reimaging after treatment to rule out malignancy. Assessment and Plan (1) Acute exacerbation of CHF (congestive heart failure): Status: Acute Patient present with signs and symptoms highly consistent with acute congestive heart failure with multiple comorbidities including poor functional status, morbid obesity, sleep apnea, chronic atrial fibrillation, chronic kidney disease, acute infection. Patient appears to be significantly fluid overloaded at this point time. Continues more aggressive diuresis. Will start him on IV Lasix drip at 5 mg an hour. Strict intake and output chart needs to be pursued. Continue aggressive blood pressure control. Will consider adding Jardiance 10 mg to his regimen for heart failure management. Cannot add spironolactone given his prior history of hyperkalemia. Repeat echocardiogram, limited to evaluate for LV and RV systolic function to evaluate for pulmonary hypertension. Continue CPAP therapy at nighttime. Continue treat his infection. Continue oxygen supplementation supportive care. Management of heart failure was discussed in details. (2) Chronic atrial fibrillation: Status: Acute Atrial fibrillation appears to be chronic persistent. Unclear as to the exact duration. Most likely cause for his congestive heart failure in addition to his other comorbidities. Continue rate control approach. Continue full oral anticoagulation, currently on Eliquis. Will follow up with you Time Spent With Patient Time: Total time managing care of this patient today ____ minutes. Procedures Date of Service Date of Service: 08/03/22
--- NOTE | 2022-08-03 13:39 | MHC.CM.PN ---
Met with patient and , Arabella in regards to discharge planning. Patient lives with Arabella, ambulates with walker/crutches, has Cpap through [facility], and VNA through [facility]. PCP verified. Copy of HCP verified to be on file. Patient received 3 Moderna vaccines. IMM explained and signed. Patient was recently at [facility]. Was discharged on 06/10. Patient's brother was at [facility] in the past and is requesting a referral there. Referral made via [facility]. Patient aware he will need to participate in 3 hours of therapy a day. Patient verbalizes understanding. Will need a physical therapy and occupational therapy eval when medically stable. Continue to monitor for d/c needs.
[2022-08-03] MEDS: Insulin Lispro 100 UNIT/ML 3 ML VIAL 16 UNIT SUBCUT (14:21)
[2022-08-03] MEDS: Insulin Lispro 100 UNIT/ML 3 ML VIAL SUBCUT ×3 (14:22→21:18)
[2022-08-03 15:31] VITALS: BP 140/57; PULSE 78; RESP 33; O2SAT 97
[2022-08-03] MEDS: amLODIPine Besylate 5 MG TABLET PO (15:32)
--- NOTE | 2022-08-03 15:59 | W.PM.IDCN ---
History of Present Illness Data of Consult Service Date: 08/03/22 Requesting physician: Masood Bishop Primary Care Provider: Guzman SUGGS Reason for consult: weakness,fatigue? infectious source He presents with shortness of breath and leg swelling. He felt chills initially but not now. He has no cough or productive sputum. He has no elevated WBC or fever. He has some basilar densities CXR and pyuria. Review of Systems Review of Systems: Yes all other systems are reviewed and are negative PMFSH Past Medical History Medical History Diabetes Hypertension Kidney disease Varicose veins of left lower extremity with inflammation Family History Family history: reviewed and not pertinent Social History Social History Household Members: Spouse Housing: House Do you presently have visiting nurse or other home services: No Alcohol intake: never Patient Tobacco Use Status: Never used Tobacco Smoked in Last 30 Days: No Use of substances other than those prescribed or required for medical reasons: No Advance Directives: Yes Advance Directives on File: Yes Advance Directives Date on File: 05/16/22 Nutrition Risks: No Nutritional Risk service: Yes Current occupational status: retired Meds Allergies Allergy/AdvReac Type Severity Reaction Status Date / Time Penicillins AdvReac Intermediate HALLUCINATIONS, Verified 08/02/22 16:58 SWEATS Active Medications: Current Medications Acetaminophen (Acetaminophen 325 Mg Tablet) 650 mg PO Q6H PRN PRN Reason: Pain, Mild (Pain Scale 1-3) Allopurinol (Allopurinol 300 Mg Tablet) 300 mg PO DAILY [facility] Last Admin: 08/03/22 09:09 Dose: 300 mg Amlodipine Besylate (Amlodipine Besylate 5 Mg Tablet) 5 mg PO DAILY@1200 [facility]; Protocol Last Admin: 08/03/22 15:32 Dose: 5 mg Apixaban (Apixaban 5 Mg Tablet) 5 mg PO BID [facility] Last Admin: 08/03/22 09:09 Dose: 5 mg Ascorbic Acid (Ascorbic Acid 500 Mg Tablet) 1,000 mg PO BID [facility] Last Admin: 08/03/22 09:09 Dose: 1,000 mg Atorvastatin Calcium (Atorvastatin Calcium 80 Mg Tablet) 80 mg PO BEDTIME [facility] Cyanocobalamin (Cyanocobalamin (Vitamin B-12) 100 Mcg Tablet) 200 mcg PO DAILY [facility] Last Admin: 08/03/22 11:10 Dose: 200 mcg Docusate Sodium (Docusate Sodium 100 Mg Capsule) 100 mg PO DAILY PRN PRN Reason: Constipation Furosemide (Furosemide 40 Mg/4 Ml Vial) 40 mg IVPUSH BID@0900,1800 [facility]; Protocol Last Admin: 08/03/22 09:11 Dose: 40 mg Glucose (Glucose Gel 15 Gm Gel..Gram.) 15 gm PO Q15M PRN; Protocol PRN Reason: per Hypoglycemia Standing Ord. Azithromycin 500 mg/ Sodium (Chloride) 250 mls @ 125 mls/hr IV Q24H [facility] Dextrose (D10) 250 mls @ 750 mls/hr IV Q15M PRN; Protocol PRN Reason: per Hypoglycemia Standing Ord. Meropenem 1 gm/ Sodium (Chloride) 100 mls @ 200 mls/hr IV Q8H [facility] Last Admin: 08/03/22 15:32 Dose: 200 mls/hr Ceftriaxone Sodium 1 gm/ (Sodium Chloride) 50 mls @ 100 mls/hr IV Q24H [facility] Last Infusion: 08/03/22 12:25 Dose: Infused Insulin Glargine (Insulin Glargine,Hum.Rec.Anlog 100 Unit/Ml 10 Ml Vial) 28 unit SUBCUT BEDTIME [facility] Last Admin: 08/03/22 00:31 Dose: 28 unit Insulin Human Lispro (Insulin Lispro 100 Unit/Ml 3 Ml Vial) 16 unit SUBCUT DAILY@1130 [facility] Last Admin: 08/03/22 14:21 Dose: 16 unit Insulin Human Lispro (Insulin Lispro 100 Unit/Ml 3 Ml Vial) 8 unit SUBCUT DAILY@0730 [facility] Last Admin: 08/03/22 08:00 Dose: 8 unit Insulin Human Lispro (Insulin Lispro 100 Unit/Ml 3 Ml Vial) 20 unit SUBCUT DAILY@1630 [facility] Insulin Human Lispro (Insulin Lispro 100 Unit/Ml 3 Ml Vial) 0 unit SUBCUT QIDACHS [facility]; Protocol Last Admin: 08/03/22 14:22 Dose: 2 unit Non-Formulary Medication (Methenamine Hippurate) 1 gm PO BID [facility] Ondansetron HCl (Ondansetron Hcl 4 Mg/2 Ml Vial) 4 mg IVPUSH Q8H PRN PRN Reason: Nausea and Vomiting Pharmacy Consult (Consult Rx Perform Med Rec) 1 each MISCELLANE ONCE PRN PRN Reason: Consult order Sodium Chloride (0.9 % Sodium Chloride Flush 3 Ml Syringe) 3 ml IVFLUSH QSHIFT [facility] Last Admin: 08/03/22 08:03 Dose: Not Given Tamsulosin HCl (Tamsulosin Hcl 0.4 Mg Capsule) 0.4 mg PO BEDTIME [facility] Last Admin: 08/03/22 00:32 Dose: 0.4 mg Vitamin D (Cholecalciferol (Vitamin D3) 25 Mcg Tablet) 50 mcg PO DAILY [facility] Last Admin: 08/03/22 09:09 Dose: 50 mcg Home Medications Medication Instructions Recorded Confirmed Last Taken Type allopurinol 300 mg tablet 300 mg PO DAILY 11/03/20 08/02/22 08/02/22 History ascorbic acid (vitamin C) 1,000 mg 1,000 mg PO BID 11/03/20 08/02/22 08/02/22 History tablet (Vitamin C) cholecalciferol (vitamin D3) 50 50 mcg PO DAILY 11/03/20 08/02/22 08/02/22 History mcg (2,000 unit) capsule insulin aspart U-100 100 unit/mL 16 unit subcut DAILY@1130 11/03/20 08/02/22 08/02/22 History subcutaneous solution (Novolog U-100 Insulin aspart) insulin aspart U-100 100 unit/mL 20 unit subcut DAILY@1630 11/03/20 08/02/22 08/01/22 History subcutaneous solution (Novolog U-100 Insulin aspart) methenamine hippurate 1 gram tablet 1 g PO BID 11/03/20 08/02/22 08/02/22 History tamsulosin 0.4 mg capsule 0.4 mg PO BEDTIME 11/03/20 08/02/22 08/01/22 History torsemide 20 mg tablet 20 mg PO DAILY 11/03/20 08/02/22 08/02/22 History cyanocobalamin (vitamin B-12) 100 200 mcg PO DAILY 05/02/22 08/02/22 08/02/22 History mcg tablet insulin glargine 100 unit/mL (3 28 unit subcut BEDTIME 05/02/22 08/02/22 08/01/22 History mL) subcutaneous pen (Lantus Solostar U-100 Insulin) rosuvastatin 40 mg tablet 20 mg PO BEDTIME 05/02/22 08/02/22 08/01/22 History amlodipine 5 mg tablet 5 mg PO DAILY@1200 08/02/22 08/02/22 08/02/22 History insulin aspart U-100 100 unit/mL 8 unit subcut DAILY 08/02/22 08/02/22 08/02/22 History subcutaneous solution (Novolog U-100 Insulin aspart) Physical Exam Vital Signs: Vital Signs: Last Vital Signs Temp 98.3 F 08/03/22 11:41 Pulse 78 08/03/22 15:31 Resp 33 H 08/03/22 15:31 BP 140/57 H 08/03/22 15:31 Pulse Ox 97 08/03/22 15:31 O2 Del Method Nasal Cannula 08/03/22 15:31 O2 Flow Rate 3 08/03/22 15:31 Oxygen Flow Rate 2 08/02/22 16:53 BMI result Body Mass Index 63.9 Extrem: Other: venous stasis changes on legs Results Labs 08/02/22 18:45 08/03/22 06:05 Labs: Short CBC 08/02/22 Range/Units 18:45 WBC 10.8 (4.8-10.8) X10*3/uL Hgb 10.5 L (14.0-18.0) g/dl Hct 34.5 L (42.0-52.0) % Plt Count 191 (160-400) X10*3/uL BMP 08/02/22 08/03/22 18:45 06:05 Sodium 141 141 Potassium 4.7 3.9 Chloride 105 105 Carbon Dioxide 24 30 H BUN 28 H 26 H Creatinine 1.51 H 1.62 H Calcium 8.6 D 8.4 Liver Function 08/02/22 08/03/22 Range/Units 18:45 06:05 Total Bilirubin 1.0 1.1 H (0.0-1.0) mg/dL AST 18 10 (5-37) U/L ALT 10 8 (0-40) U/L Alkaline Phosphatase 80 87 (39-117) U/L Albumin 3.5 3.3 L (3.5-5.0) g/dL Urine 08/02/22 Range/Units 18:45 Urine Color Yellow Urine Appearance Cloudy Urine pH 5.5 (5.0-9.0) Ur Specific [place] 1.010 (1.005-1.025) Urine Protein 100 (2+) H (Neg-Trace) mg/dL Urine Glucose (UA) Negative (Negative) mg/dL Microbiology Microbiology Results: Microbiology 08/02/22 Unknown Urine clean catch - Urine scott top Urine Culture - Preliminary Gram negative waqar Assessment and Plan (1) Chronic atrial fibrillation: Status: Acute (2) History of ESBL E. coli infection: Status: Acute He has shortness of breath but no distinct lobar infiltrates and no fever or leukocytosis. He also has no dysuria. He has h/o Cdiff by report He has no leukocytosis. 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 If develops fever or leukocytosis consider giving merepenem treat possible ESBL urine Time Spent With Patient Time: Total time managing care of this patient today ____ minutes.
[2022-08-03 16:23] VITALS: BP 158/70; PULSE 70; RESP 20; TEMP 37; O2SAT 99
[2022-08-03 16:31] LABS: Glucose, Whole Blood 184 mg/dL (60-115)
[2022-08-03 16:36] VITALS: BMI 63.9
[2022-08-03 16:42] VITALS: BMI 62.0
[2022-08-03 20:00] VITALS: BP 135/64; PULSE 89; RESP 20; TEMP 37.1; O2SAT 98
[2022-08-03 20:28] LABS: Glucose, Whole Blood 163 mg/dL (60-115)
[2022-08-03] MEDS: Atorvastatin Calcium 80 MG TABLET PO (21:16)
[2022-08-03] MEDS: Azithromycin 500 MG in 0.9 % Sodium Chloride 250 ML 125 MG IV (21:22)
[2022-08-03 22:59] VITALS: BP 146/72; PULSE 89; RESP 21; TEMP 37; O2SAT 98
[2022-08-04 03:11] VITALS: BP 136/63; PULSE 69; RESP 18; TEMP 37.1; O2SAT 97
[2022-08-04 06:00] VITALS: BMI 62.0
[2022-08-04 07:40] LABS: Glucose, Whole Blood 169 mg/dL (60-115)
[2022-08-04 08:00] VITALS: BP 143/74; PULSE 65; RESP 22; TEMP 36.4; O2SAT 98
[2022-08-04] MEDS: Insulin Lispro 100 UNIT/ML 3 ML VIAL 8 UNIT SUBCUT (08:09)
[2022-08-04] MEDS: 0.9 % Sodium Chloride Flush 3 ML SYRINGE IVFLUSH ×2 (08:09→16:04)
[2022-08-04] MEDS: Cyanocobalamin (Vitamin B-12) 100 MCG TABLET 200 MCG PO (08:10)
[2022-08-04] MEDS: Furosemide 40 MG/4 ML VIAL IVPUSH (08:10)
[2022-08-04] MEDS: allopurinoL 300 MG TABLET PO (08:10)
[2022-08-04] MEDS: Ascorbic Acid 500 MG TABLET 1000 MG PO ×2 (08:10→20:04)
[2022-08-04] MEDS: cefTRIAXone sodium 1 GM in 0.9 % Sodium Chloride 50 ML IV (08:10)
[2022-08-04] MEDS: Cholecalciferol (Vitamin D3) 25 MCG TABLET 50 MCG PO (08:10)
[2022-08-04] MEDS: Insulin Lispro 100 UNIT/ML 3 ML VIAL SUBCUT ×3 (08:10→21:30)
[2022-08-04] MEDS: Apixaban 5 MG TABLET PO ×2 (08:10→20:04)
[2022-08-04 11:00] LABS: Glucose, Whole Blood 148 mg/dL (60-115)
[2022-08-04 11:31] VITALS: BP 141/81; PULSE 85; RESP 20; TEMP 36.1; O2SAT 100
[2022-08-04] MEDS: amLODIPine Besylate 5 MG TABLET PO (11:35)
--- NOTE | 2022-08-04 11:43 | P.PNCA_ITS ---
Subjective Subjective Date of Service: 08/04/22 Principal diagnosis: decompensated congestive heart failure, atrial fibrillation Interval history: patient remains in rate control atrial fibrillation. Still remains fluid overloaded both feels better. His shortness of breath is improved. He says his leg edema is looking better. Overall negative balance of 1500 cc noted in the chart. Review of Systems Constitutional: Reports no additional constitutional complaints Cardiovascular: Denies chest pain, Reports leg edema, Denies lightheadedness, Denies Loss of Consciousness, Denies palpitations, Reports dyspnea on exertion and Reports orthopnea Respiratory: Reports dyspnea on exertion Gastrointestinal: Reports no additional gastrointestinal complaints Musculoskeletal: Reports no additional musculoskeletal complaints Reports system reviewed and no additional complaints, except as documented Endocrine: Denies palpitations Physical Exam Vital Signs: Last Vital Signs Temp 96.9 F 08/04/22 11:31 Pulse 85 08/04/22 11:31 Resp 20 08/04/22 11:31 BP 141/81 H 08/04/22 11:31 Pulse Ox 100 08/04/22 11:31 O2 Del Method Nasal Cannula 08/04/22 11:31 O2 Flow Rate 3 08/04/22 11:31 Oxygen Flow Rate 2 08/02/22 16:53 BMI result Body Mass Index 62.0 Const General: cooperative, alert, awake and in distress moderate and respiratory Nutritional Appearance: obese morbidly obese Orientation/consciousness: patient oriented x3 Neck Neck: Yes trachea midline, Yes supple and Yes JVD Resp Effort & Inspection: normal respiratory effort Auscultation: no rales, no wheezes and diminished lung sounds Cardio Jugular venous distension: JVD Rhythm: abnormal rhythm irregularly irregular Heart sounds: S1 normal heart sound present, S2 normal heart sound present, no click, no gallops, no murmurs and no rubs GI Inspection: Yes distended and Yes Abdominal panniculus present Auscultation: normal bowel sounds Skin General skin exam: no rashes or lesions noted Neuro General: patient oriented x3 and no focal motor deficits Extrem General: No clubbing, No cyanosis and Yes edema Objective Labs and Meds 08/02/22 18:45 08/03/22 06:05 Lab results: Laboratory Results - last 24 hr 08/03/22 08/03/22 08/03/22 11:44 16:22 20:00 POC Glucose 172 H 184 H 163 H 08/04/22 08/04/22 07:20 10:56 POC Glucose 169 H 148 H Progress Note: A&P Assessment and plan (1) Acute exacerbation of CHF (congestive heart failure): Status: Acute Assessment and Plan: Acute onset heart failure predominant right heart failure findings with significant fluid overload still present. Continue IV diuresis with Lasix drip. Strict intake and output chart needs to be pursued. Continue to monitor renal function electrolytes. Would consider adding Jardiance 10 mg to his regimen. Most likely cause of his heart failure appears to be morbid obesity with chronic atrial fibrillation with diastolic dysfunction due to significant sleep apnea. CPAP therapy should be pursued tonight. Continue oxygen therapy. Out of bed to chair. Incentive spirometry. Ambulate as tolerated. Not sure if we will be able to pursue rhythm control approach in in him given longstanding atrial fibri llation with left atrial enlargement and morbid obesity with sleep apnea. (2) Chronic atrial fibrillation: Status: Acute Assessment and Plan: Chronic rate control atrial fibrillation. Currently rate controlled. Will continue to pursue rate control approach. Continue full oral anticoagulation. Will continue to follow with you Time Spent With Patient Time: Total time managing care of this patient today ____ minutes. Progress Note: Quality Stroke Does the patient have a stroke diagnosis?: No Procedures Date of Service Date of Service: 08/04/22
[2022-08-04 15:30] VITALS: BP 137/63; PULSE 75; RESP 18; TEMP 37.1; O2SAT 98
[2022-08-04 15:49] LABS: Glucose, Whole Blood 217 mg/dL (60-115)
--- NOTE | 2022-08-04 16:07 | P.PNIM_ITS ---
Subjective Subjective Date of Service: 08/04/22 Interval History: Overall notes some improvement in his breathing. Still short of breath when ambulate to bathroom Review of Systems Denies chest pain Admits shortness of breath with minimal exertion Denies nausea vomiting diarrhea Denies fever chills Physical Exam Vital Signs: Vital Signs: Last Vital Signs Temp 98.7 F 08/04/22 15:30 Pulse 75 08/04/22 15:30 Resp 18 08/04/22 15:30 BP 137/63 08/04/22 15:30 Pulse Ox 98 08/04/22 15:30 O2 Del Method Nasal Cannula 08/04/22 15:30 O2 Flow Rate 2 08/04/22 15:30 Oxygen Flow Rate 2 08/02/22 16:53 BMI result Body Mass Index 62.0 Const: Other: Awake alert no acute distress Resp: Other: Diminished at bases; scant crackles at bases Cardio: Other: No S4; positive S1-S2; no S3 murmurs rubs or gallops Extrem: Other: Chronic venous stasis changes bilateral lower extremities. Objective Data Active Medications Acetaminophen (Acetaminophen 325 Mg Tablet) 650 mg PO Q6H PRN PRN Reason: Pain, Mild (Pain Scale 1-3) Allopurinol (Allopurinol 300 Mg Tablet) 300 mg PO DAILY [facility] Last Admin: 08/04/22 08:10 Dose: 300 mg Documented By: JENNIFER Amlodipine Besylate (Amlodipine Besylate 5 Mg Tablet) 5 mg PO DAILY@1200 [facility]; Protocol Last Admin: 08/04/22 11:35 Dose: 5 mg Documented By: JENNIFER Apixaban (Apixaban 5 Mg Tablet) 5 mg PO BID [facility] Last Admin: 08/04/22 08:10 Dose: 5 mg Documented By: JENNIFER Ascorbic Acid (Ascorbic Acid 500 Mg Tablet) 1,000 mg PO BID [facility] Last Admin: 08/04/22 08:10 Dose: 1,000 mg Documented By: JENNIFER Atorvastatin Calcium (Atorvastatin Calcium 80 Mg Tablet) 80 mg PO BEDTIME [facility] Last Admin: 08/03/22 21:16 Dose: 80 mg Documented By: HEAVENLY Cyanocobalamin (Cyanocobalamin (Vitamin B-12) 100 Mcg Tablet) 200 mcg PO DAILY [facility] Last Admin: 08/04/22 08:10 Dose: 200 mcg Documented By: JENNIFER Docusate Sodium (Docusate Sodium 100 Mg Capsule) 100 mg PO DAILY PRN PRN Reason: Constipation Furosemide (Furosemide 40 Mg/4 Ml Vial) 40 mg IVPUSH BID@0900,1800 [facility]; Protocol Last Admin: 08/04/22 08:10 Dose: 40 mg Documented By: JENNIFER Glucose (Glucose Gel 15 Gm Gel..Gram.) 15 gm PO Q15M PRN; Protocol PRN Reason: per Hypoglycemia Standing Ord. Azithromycin 500 mg/ Sodium (Chloride) 250 mls @ 125 mls/hr IV Q24H [facility] Last Infusion: 08/03/22 23:41 Dose: 0 mls/hr Documented By: HEAVENLY Dextrose (D10) 250 mls @ 750 mls/hr IV Q15M PRN; Protocol PRN Reason: per Hypoglycemia Standing Ord. Meropenem 1 gm/ Sodium (Chloride) 100 mls @ 200 mls/hr IV Q8H [facility] Last Admin: 08/04/22 16:03 Dose: 200 mls/hr Documented By: JENNIFER Ceftriaxone Sodium 1 gm/ (Sodium Chloride) 50 mls @ 100 mls/hr IV Q24H [facility] Last Infusion: 08/04/22 08:45 Dose: 0 mls/hr Documented By: JENNIFER Insulin Glargine (Insulin Glargine,Hum.Rec.Anlog 100 Unit/Ml 10 Ml Vial) 28 unit SUBCUT BEDTIME [facility] Last Admin: 08/03/22 21:17 Dose: 28 unit Documented By: HEAVENLY Insulin Human Lispro (Insulin Lispro 100 Unit/Ml 3 Ml Vial) 16 unit SUBCUT DAILY@1130 [facility] Last Admin: 08/04/22 11:10 Dose: Not Given Documented By: JENNIFER Non-Admin Reason: No Insulin Coverage Insulin Human Lispro (Insulin Lispro 100 Unit/Ml 3 Ml Vial) 8 unit SUBCUT DAILY@0730 [facility] Last Admin: 08/04/22 08:09 Dose: 8 unit Documented By: JENNIFER Insulin Human Lispro (Insulin Lispro 100 Unit/Ml 3 Ml Vial) 20 unit SUBCUT DAILY@1630 [facility] Last Admin: 08/04/22 15:51 Dose: Not Given Documented By: JENNIFER Non-Admin Reason: No Insulin Coverage Insulin Human Lispro (Insulin Lispro 100 Unit/Ml 3 Ml Vial) 0 unit SUBCUT QIDACHS [facility]; Protocol Last Admin: 08/04/22 16:03 Dose: 4 unit Documented By: JENNIFER Non-Formulary Medication (Methenamine Hippurate) 1 gm PO BID [facility] Ondansetron HCl (Ondansetron Hcl 4 Mg/2 Ml Vial) 4 mg IVPUSH Q8H PRN PRN Reason: Nausea and Vomiting Pharmacy Consult (Consult Rx Perform Med Rec) 1 each MISCELLANE ONCE PRN PRN Reason: Consult order Sodium Chloride (0.9 % Sodium Chloride Flush 3 Ml Syringe) 3 ml IVFLUSH QSHIFT [facility] Last Admin: 08/04/22 16:04 Dose: 3 ml Documented By: JENNIFER Tamsulosin HCl (Tamsulosin Hcl 0.4 Mg Capsule) 0.4 mg PO BEDTIME [facility] Last Admin: 08/03/22 21:16 Dose: 0.4 mg Documented By: HEAVENLY Vitamin D (Cholecalciferol (Vitamin D3) 25 Mcg Tablet) 50 mcg PO DAILY [facility] Last Admin: 08/04/22 08:10 Dose: 50 mcg Documented By: JENNIFER Labs 08/02/22 18:45 08/03/22 06:05 Labs: Laboratory Results - last 24 hr 08/03/22 08/03/22 08/04/22 16:22 20:00 07:20 POC Glucose 184 H 163 H 169 H 08/04/22 08/04/22 10:56 15:28 POC Glucose 148 H 217 H Microbiology Microbiology Results: Microbiology 08/02/22 Unknown Urine Culture - Preliminary Urine clean catch - Urine scott top Gram negative waqar 08/02/22 19:49 Blood Culture - Preliminary Blood - Venous No growth after 24 hours. 08/02/22 18:45 Blood Culture - Preliminary Blood - Venous No growth after 24 hours. Assessment and Plan (1) Community acquired pneumonia: Status: Acute (2) Acute exacerbation of CHF (congestive heart failure): Status: Acute (3) History of ESBL E. coli infection: Status: Acute Plan 71-year-old male with past medical history of diabetes, hypertension presents to the hospital with shortness of breath found to have pneumonia and evidence of CHF. Responding well to diuresis 1.Community-acquired pneumonia -Ceftriaxone/Azithro (4) -titrate O2 to maintain sats greater equal to 90% ?2.Acute CHF exacerbation, report much weight gain -Lasix drip at 5 milligrams/hour -Monitor I/O, weight -follow renal/divalents 3. ESBL UTI -Hx EColi; preliminary culture Gram-negative rods -continue current therapies pending ID of the organism 4.Diabetes II -continue basal insulin -lispro correctional scale -adjust as indicated Eliquis Full code Requires ongoing hospitalization for IV antibiotics to cover community-acquired pneumonia. Also requires continued hospitalization for acute CHF exacerbation requiring IV Lasix drip Time Spent With Patient Time: Total time managing care of this patient today ____ minutes. Quality Stroke Does the patient have a stroke diagnosis?: No VTE Prior VTE?: No VTE Risk Level:: Medical - moderate - high VTE Device Contraindication: Treatment Not Indicated VTE Drug Contraindication: N/A - Med Ordered
[2022-08-04] MEDS: Furosemide 200 MG in 0.9 % Sodium Chloride 80 ML IVCONT (16:56)
[2022-08-04 19:23] VITALS: BP 158/74; PULSE 86; RESP 20; TEMP 36.3; O2SAT 100
[2022-08-04] MEDS: Tamsulosin HCL 0.4 MG CAPSULE PO (20:04)
[2022-08-04] MEDS: Atorvastatin Calcium 80 MG TABLET PO (20:04)
[2022-08-04 20:20] LABS: Glucose, Whole Blood 210 mg/dL (60-115)
[2022-08-04] MEDS: Insulin Glargine,Hum.rec.anlog 100 UNIT/ML 10 ML VIAL 28 UNIT SUBCUT (21:31)
[2022-08-04] MEDS: Azithromycin 500 MG in 0.9 % Sodium Chloride 250 ML 125 MG IV (21:31)
[2022-08-04 23:35] VITALS: BP 124/68; PULSE 80; RESP 20; TEMP 36.4; O2SAT 95
[2022-08-05 03:17] VITALS: BP 131/60; PULSE 76; RESP 20; TEMP 36.3; O2SAT 93
[2022-08-05 03:53] VITALS: BMI 62.6
[2022-08-05 07:03] LABS: MANUAL DIFF FLAG NO
[2022-08-05 07:12] LABS: Basophils Absolute Auto 0.1 X10*3/uL (0.0-0.2); Basophils Percent Auto 0.7 % (0-2); Eosinophils Absolute Auto 0.6 X10*3/uL (0.0-0.4); Eosinophils Percent Auto 6.3 % (0-4); Hematocrit 37.1 % (42.0-52.0); Hemoglobin 11.3 g/dl (14.0-18.0); Imm Gran Abs Auto 0.09 X10*3/uL (0.00-0.03); Lymphocytes Absolute Auto 1.2 X10*3/uL (1.2-4.9); Lymphocytes Percent Auto 13.3 % (20-40); Mean Corpuscular HGB Conc 30.5 g/dl (31.0-36.0); Mean Corpuscular Hemoglobin 27.8 pg (27.0-33.0); Mean Corpuscular Volume 91.2 fL (80.0-98.0); Mean Platelet Volume 10.5 fL (9.4-12.4); Monocytes Absolute Auto 0.7 X10*3/uL (0.1-1.2); Monocytes Percent Auto 7.9 % (2-11); Neutrophils Absolute Auto 6.3 x10*3/uL (2.0-8.3); Neutrophils Percent Auto 70.8 % (45-73); Platelet Count 230 X10*3/uL (160-400); Red Blood Count 4.07 X10*6/uL (4.60-5.80); Red Cell Distribution Width 15.8 % (11.0-16.0); White Blood Count 8.9 X10*3/uL (4.8-10.8)
[2022-08-05 07:24] LABS: Glucose, Whole Blood 146 mg/dL (60-115)
[2022-08-05 07:38] VITALS: BP 109/53; PULSE 73; RESP 20; TEMP 36.8; O2SAT 99
[2022-08-05 07:41] LABS: Alanine Aminotransferase 9 U/L (0-40); Albumin Level 3.3 g/dL (3.5-5.0); Alkaline Phosphatase 85 U/L (39-117); Anion Gap 13 (12-20); Aspartate Amino Transferase 12 U/L (5-37); Blood Urea Nitrogen 30 mg/dL (9-16); Calcium 8.6 mg/dL (8.4-10.2); Carbon Dioxide 30 mmol/L (22-29); Chloride 102 mmol/L (96-108); Creatinine Clr Calc Pharmacy 70.1; Estimated Glomerular Filt Rate 40; Glucose Fasting 145 mg/dL (60-99); Potassium 4.1 mmol/L (3.3-5.1); Sodium 141 mmol/L (135-145); Total Protein 6.2 g/dL (6.5-8.0)
[2022-08-05] MEDS: Ascorbic Acid 500 MG TABLET 1000 MG PO ×2 (09:52→21:00)
[2022-08-05] MEDS: cefTRIAXone sodium 1 GM in 0.9 % Sodium Chloride 50 ML IV (09:52)
[2022-08-05] MEDS: Cholecalciferol (Vitamin D3) 25 MCG TABLET 50 MCG PO (09:52)
[2022-08-05] MEDS: 0.9 % Sodium Chloride Flush 3 ML SYRINGE IVFLUSH (09:53)
[2022-08-05] MEDS: Cyanocobalamin (Vitamin B-12) 100 MCG TABLET 200 MCG PO (09:53)
[2022-08-05] MEDS: Apixaban 5 MG TABLET PO ×2 (09:53→21:00)
[2022-08-05] MEDS: allopurinoL 300 MG TABLET PO (09:53)
--- NOTE | 2022-08-05 10:41 | MHC.CM.PN ---
Per ROUNDS discussion, Patient is not yet medically cleared; Patient may benefit from a PT to assist with disposition. CM will follow.
--- NOTE | 2022-08-05 10:48 | PM.PNCARD ---
Subjective Subjective Date of Service: 08/05/22 Principal diagnosis: decompensated congestive heart failure, atrial fibrillation Interval history: patient without oxygen breathing better. Feels that area slightly heavy but less short of breath. Leg edema is improving. Denies any other cardiac complaints at this point in time. Review of Systems Constitutional: Reports no additional constitutional complaints Cardiovascular: Reports leg edema, Denies lightheadedness, Denies palpitations and Reports dyspnea on exertion Respiratory: Reports no additional respiratory complaints and Reports dyspnea on exertion Gastrointestinal: Reports no additional gastrointestinal complaints Endocrine: Denies palpitations Physical Exam Vital Signs: Last Vital Signs Temp 98.3 F 08/05/22 07:38 Pulse 73 08/05/22 07:38 Resp 20 08/05/22 07:38 BP 109/53 L 08/05/22 07:38 Pulse Ox 99 08/05/22 07:38 O2 Del Method Nasal Cannula 08/05/22 07:38 O2 Flow Rate 3 08/05/22 07:38 Oxygen Flow Rate 2 08/02/22 16:53 BMI result Body Mass Index 62.6 Const General: cooperative, alert, awake and in distress moderate and respiratory Nutritional Appearance: obese morbidly obese Orientation/consciousness: patient oriented x3 Neck Neck: Yes trachea midline, Yes supple and Yes JVD Resp Effort & Inspection: normal respiratory effort Auscultation: no rales, no wheezes and diminished lung sounds Cardio Jugular venous distension: JVD Rhythm: abnormal rhythm irregularly irregular Heart sounds: S1 normal heart sound present, S2 normal heart sound present, no click, no gallops, no murmurs and no rubs GI Inspection: Yes distended and Yes Abdominal panniculus present Auscultation: normal bowel sounds Skin General skin exam: no rashes or lesions noted Neuro General: patient oriented x3 and no focal motor deficits Extrem General: No clubbing, No cyanosis and Yes edema Objective Labs and Meds 08/05/22 06:38 08/05/22 06:38 Lab results: Laboratory Results - last 24 hr 08/04/22 08/04/22 08/04/22 10:56 15:28 20:12 WBC RBC Hgb Hct MCV MCH MCHC RDW Plt Count MPV Immature Gran % (Auto) Neut % (Auto) Lymph % (Auto) [place] % (Auto) Eos % (Auto) Baso % (Auto) Lymph # (Auto) [place] # (Auto) Eos # (Auto) Baso # (Auto) Abs Immat Gran (auto) Absolute Neuts (auto) Absolute Nucleated RBC Nucleated RBC % (auto) Sodium Potassium Chloride Carbon Dioxide Anion Gap BUN Creatinine Estim Creat Clear Calc Estimated GFR POC Glucose 148 H 217 H 210 H Fasting Glucose Calcium Total Bilirubin AST ALT Alkaline Phosphatase Total Protein Albumin 08/05/22 08/05/22 08/05/22 06:38 06:38 07:20 WBC 8.9 RBC 4.07 L Hgb 11.3 L Hct 37.1 L MCV 91.2 MCH 27.8 MCHC 30.5 L RDW 15.8 Plt Count 230 MPV 10.5 Immature Gran % (Auto) 1.0 H Neut % (Auto) 70.8 Lymph % (Auto) 13.3 L [place] % (Auto) 7.9 Eos % (Auto) 6.3 H Baso % (Auto) 0.7 Lymph # (Auto) 1.2 [place] # (Auto) 0.7 Eos # (Auto) 0.6 H Baso # (Auto) 0.1 Abs Immat Gran (auto) 0.09 H Absolute Neuts (auto) 6.3 Absolute Nucleated RBC 0.000 Nucleated RBC % (auto) 0.0 Sodium 141 Potassium 4.1 Chloride 102 Carbon Dioxide 30 H Anion Gap 13 BUN 30 H Creatinine 1.68 H Estim Creat Clear Calc 70.1 Estimated GFR 40 POC Glucose 146 H Fasting Glucose 145 H Calcium 8.6 Total Bilirubin 1.0 AST 12 ALT 9 Alkaline Phosphatase 85 Total Protein 6.2 L Albumin 3.3 L Progress Note: A&P Assessment and plan (1) Acute exacerbation of CHF (congestive heart failure): Status: Acute Assessment and Plan: Decompensated congestive heart failure, predominantly right heart failure syndrome. Continues to be fluid overloaded. Tepid diuresis. Continue Lasix drip. Strict intake and output chart needs to be pursued. Add Jardiance 10 mg to his regimen. Continue monitor renal function regularly. Heart failure education needs to be provided. Continue rate control with atrial fibrillation. Continue CPAP therapy. May benefit from CardioMEMS monitoring. Will consider as outpatient. (2) Chronic atrial fibrillation: Status: Acute Assessment and Plan: Chronic atrial fibrillation, rate controlled. Exact duration of atrial fib was unclear but contributing to his heart failure syndrome. Not sure if he can pursue rhythm control approach will need to be pursuing it as outpatient. Continue Eliquis therapy. Continue current rate control approach. Continue CPAP therapy. Will follow up with you Time Spent With Patient Time: Total time managing care of this patient today ____ minutes. Progress Note: Quality Stroke Does the patient have a stroke diagnosis?: No Procedures Date of Service Date of Service: 08/05/22
[2022-08-05 11:27] VITALS: BP 154/68; PULSE 82; RESP 20; TEMP 36.8; O2SAT 94
[2022-08-05 11:56] LABS: Glucose, Whole Blood 189 mg/dL (60-115)
[2022-08-05] MEDS: amLODIPine Besylate 5 MG TABLET PO (12:34)
[2022-08-05] MEDS: Insulin Lispro 100 UNIT/ML 3 ML VIAL SUBCUT ×3 (12:34→21:01)
[2022-08-05] MEDS: Furosemide 200 MG in 0.9 % Sodium Chloride 80 ML IVCONT (15:09)
[2022-08-05 15:17] VITALS: BP 140/65; PULSE 76; RESP 20; TEMP 36.3; O2SAT 96
--- NOTE | 2022-08-05 15:39 | P.PNIM_ITS ---
Subjective Subjective Date of Service: 08/05/22 Interval History: Developed increasing shortness of breath over the course of this a.m.. Now with O2 requirement. Feels like legs are more swollen Review of Systems Denies chest pain Admits shortness of breath with minimal exertion Denies nausea vomiting diarrhea Denies fever chills Physical Exam Vital Signs: Vital Signs: Last Vital Signs Temp 97.4 F 08/05/22 15:17 Pulse 76 08/05/22 15:17 Resp 20 08/05/22 15:17 BP 140/65 H 08/05/22 15:17 Pulse Ox 96 08/05/22 15:17 O2 Del Method Nasal Cannula 08/05/22 15:17 O2 Flow Rate 3 08/05/22 15:17 Oxygen Flow Rate 2 08/02/22 16:53 BMI result Body Mass Index 62.6 Const: Other: Awake alert no acute distress Resp: Other: Diminished at bases; scant crackles at bases Cardio: Other: No S4; positive S1-S2; no S3 murmurs rubs or gallops Extrem: Other: Chronic venous stasis changes bilateral lower extremities. Objective Data Active Medications Acetaminophen (Acetaminophen 325 Mg Tablet) 650 mg PO Q6H PRN PRN Reason: Pain, Mild (Pain Scale 1-3) Allopurinol (Allopurinol 300 Mg Tablet) 300 mg PO DAILY [facility], [facility] Last Admin: 08/05/22 09:53 Dose: 300 mg Documented By: LINDA Amlodipine Besylate (Amlodipine Besylate 5 Mg Tablet) 5 mg PO DAILY@1200 [place]; Protocol Last Admin: 08/05/22 12:34 Dose: 5 mg Documented By: LINDA Apixaban (Apixaban 5 Mg Tablet) 5 mg PO BID [facility], [facility]1983 Last Admin: 08/05/22 09:53 Dose: 5 mg Documented By: LINDA Ascorbic Acid (Ascorbic Acid 500 Mg Tablet) 1,000 mg PO BID [facility], [facility] Last Admin: 08/05/22 09:52 Dose: 1,000 mg Documented By: LINDA Atorvastatin Calcium (Atorvastatin Calcium 80 Mg Tablet) 80 mg PO BEDTIME [facility], [facility]1983 Last Admin: 08/04/22 20:04 Dose: 80 mg Documented By: GENESIS Cyanocobalamin (Cyanocobalamin (Vitamin B-12) 100 Mcg Tablet) 200 mcg PO DAILY [facility], [facility] Last Admin: 08/05/22 09:53 Dose: 200 mcg Documented By: LINDA Docusate Sodium (Docusate Sodium 100 Mg Capsule) 100 mg PO DAILY PRN PRN Reason: Constipation Empagliflozin (Empagliflozin 10 Mg Tablet) 10 mg PO DAILY [facility], [facility] Glucose (Glucose Gel 15 Gm Gel..Gram.) 15 gm PO Q15M PRN; Protocol PRN Reason: per Hypoglycemia Standing Ord. Dextrose (D10) 250 mls @ 750 mls/hr IV Q15M PRN; Protocol PRN Reason: per Hypoglycemia Standing Ord. Ceftriaxone Sodium 1 gm/ (Sodium Chloride) 50 mls @ 100 mls/hr IV Q24H [facility], [facility] Last Infusion: 08/05/22 10:22 Dose: 0 mls/hr Documented By: LINDA Furosemide 200 mg/ Sodium (Chloride) 100 mls @ 5 mls/hr IVCONT .Q20H [facility], [facility] Last Admin: 08/05/22 15:09 Dose: 10 mg/hr, 5 mls/hr Documented By: LINDA Insulin Glargine (Insulin Glargine,Hum.Rec.Anlog 100 Unit/Ml 10 Ml Vial) 28 unit SUBCUT BEDTIME [facility], [facility] Last Admin: 08/04/22 21:31 Dose: 28 unit Documented By: GENESIS Comments: no barcodes available Insulin Human Lispro (Insulin Lispro 100 Unit/Ml 3 Ml Vial) 16 unit SUBCUT DAILY@1130 [facility], [facility]1983 Last Admin: 08/05/22 12:35 Dose: Not Given Documented By: LINDA Non-Admin Reason: Physician Held Med Insulin Human Lispro (Insulin Lispro 100 Unit/Ml 3 Ml Vial) 8 unit SUBCUT DAILY@0730 [facility], [facility] Last Admin: 08/05/22 07:31 Dose: Not Given Documented By: LINDA Non-Admin Reason: No Insulin Coverage Insulin Human Lispro (Insulin Lispro 100 Unit/Ml 3 Ml Vial) 20 unit SUBCUT DAILY@1630 [facility], [facility]1983 Last Admin: 08/04/22 15:51 Dose: Not Given Documented By: JENNIFER Non-Admin Reason: No Insulin Coverage Insulin Human Lispro (Insulin Lispro 100 Unit/Ml 3 Ml Vial) 0 unit SUBCUT QIDACHS [facility], [facility]; Protocol Last Admin: 08/05/22 12:34 Dose: 2 unit Documented By: LINDA Patientown Med ( Methenamine Hippurate 1 Gram Tablet) 1 gm PO BID [facility], [facility]1983 Last Admin: 08/05/22 09:52 Dose: 1 gm Documented By: LINDA Ondansetron HCl (Ondansetron Hcl 4 Mg/2 Ml Vial) 4 mg IVPUSH Q8H PRN PRN Reason: Nausea and Vomiting Pharmacy Consult (Consult Rx Perform Med Rec) 1 each MISCELLANE ONCE PRN PRN Reason: Consult order Sodium Chloride (0.9 % Sodium Chloride Flush 3 Ml Syringe) 3 ml IVFLUSH QSHIFT [facility], [facility] Last Admin: 08/05/22 09:53 Dose: 3 ml Documented By: LINDA Tamsulosin HCl (Tamsulosin Hcl 0.4 Mg Capsule) 0.4 mg PO BEDTIME [facility], [facility]1983 Last Admin: 08/04/22 20:04 Dose: 0.4 mg Documented By: GEENSIS Vitamin D (Cholecalciferol (Vitamin D3) 25 Mcg Tablet) 50 mcg PO DAILY [facility], [facility] Last Admin: 08/05/22 09:52 Dose: 50 mcg Documented By: LINDA Labs 08/05/22 06:38 08/05/22 06:38 Labs: Laboratory Results - last 24 hr 08/04/22 08/04/22 08/05/22 15:28 20:12 06:38 MCV 91.2 MCH 27.8 MCHC 30.5 L RDW 15.8 Plt Count 230 MPV 10.5 Immature Gran % (Auto) 1.0 H Neut % (Auto) 70.8 Lymph % (Auto) 13.3 L [place] % (Auto) 7.9 Eos % (Auto) 6.3 H Baso % (Auto) 0.7 Lymph # (Auto) 1.2 [place] # (Auto) 0.7 Eos # (Auto) 0.6 H Baso # (Auto) 0.1 Abs Immat Gran (auto) 0.09 H Absolute Neuts (auto) 6.3 Absolute Nucleated RBC 0.000 Nucleated RBC % (auto) 0.0 Anion Gap Estim Creat Clear Calc Estimated GFR POC Glucose 217 H 210 H Fasting Glucose Calcium Total Bilirubin AST ALT Alkaline Phosphatase Total Protein Albumin 08/05/22 08/05/22 08/05/22 06:38 07:20 11:33 MCV MCH MCHC RDW Plt Count MPV Immature Gran % (Auto) Neut % (Auto) Lymph % (Auto) [place] % (Auto) Eos % (Auto) Baso % (Auto) Lymph # (Auto) [place] # (Auto) Eos # (Auto) Baso # (Auto) Abs Immat Gran (auto) Absolute Neuts (auto) Absolute Nucleated RBC Nucleated RBC % (auto) Anion Gap 13 Estim Creat Clear Calc 70.1 Estimated GFR 40 POC Glucose 146 H 189 H Fasting Glucose 145 H Calcium 8.6 Total Bilirubin 1.0 AST 12 ALT 9 Alkaline Phosphatase 85 Total Protein 6.2 L Albumin 3.3 L Microbiology Microbiology Results: Microbiology 08/02/22 Unknown Urine Culture - Final Urine clean catch - Urine scott top Escherichia coli 08/02/22 19:49 Blood Culture - Preliminary Blood - Venous No growth after 48 hours. 08/02/22 18:45 Blood Culture - Preliminary Blood - Venous No growth after 48 hours. Assessment and Plan (1) Community acquired pneumonia: Status: Acute (2) Congestive heart failure: Status: Acute (3) Acute UTI: Status: Acute Plan 71-year-old male with past medical history of diabetes, hypertension presents to the hospital with shortness of breath found to have pneumonia and evidence of CHF. Responding well to diuresis 1.Community-acquired pneumonia -Ceftriaxone/Azithro (5) -titrate O2 to maintain sats greater equal to 90% ?2.Acute CHF exacerbation, report much weight gain - increase Lasix drip to 10 milligrams/hour -Monitor I/O, weight -follow renal/divalents 3. ESBL UTI -E coli. .. Not ESBL -sensitive to ceftriaxone. . . Continue same 4.Diabetes II -continue basal insulin -lispro correctional scale -adjust as indicated Eliquis Full code Requires ongoing hospitalization for IV antibiotics to cover community-acquired pneumonia. Also requires continued hospitalization for acute CHF exacerbation requiring IV Lasix drip Time Spent With Patient Time: Total time managing care of this patient today ____ minutes. Quality Stroke Does the patient have a stroke diagnosis?: No VTE Prior VTE?: No VTE Risk Level:: Medical - moderate - high VTE Device Contraindication: Treatment Not Indicated VTE Drug Contraindication: N/A - Med Ordered
[2022-08-05 16:26] LABS: Glucose, Whole Blood 181 mg/dL (60-115)
[2022-08-05 19:22] VITALS: BP 143/70; PULSE 73; RESP 20; TEMP 36.4; O2SAT 98
[2022-08-05 20:45] LABS: Glucose, Whole Blood 186 mg/dL (60-115)
[2022-08-05] MEDS: Atorvastatin Calcium 80 MG TABLET PO (21:00)
[2022-08-05] MEDS: Insulin Glargine,Hum.rec.anlog 100 UNIT/ML 10 ML VIAL 28 UNIT SUBCUT (21:01)
[2022-08-05] MEDS: Tamsulosin HCL 0.4 MG CAPSULE PO (21:08)
[2022-08-05 23:37] VITALS: BP 119/58; PULSE 67; RESP 18; TEMP 36.2; O2SAT 97
[2022-08-06 03:48] VITALS: BP 140/63; PULSE 71; RESP 18; TEMP 36.6; O2SAT 95
[2022-08-06 06:00] VITALS: BMI 60.4
[2022-08-06 07:30] LABS: Glucose, Whole Blood 180 mg/dL (60-115)
[2022-08-06 08:00] VITALS: BP 155/71; PULSE 73; RESP 20; TEMP 36.8; O2SAT 95
[2022-08-06] MEDS: Insulin Lispro 100 UNIT/ML 3 ML VIAL SUBCUT ×4 (08:23→22:17)
[2022-08-06] MEDS: allopurinoL 300 MG TABLET PO (08:24)
[2022-08-06] MEDS: Cyanocobalamin (Vitamin B-12) 100 MCG TABLET 200 MCG PO (08:24)
[2022-08-06] MEDS: 0.9 % Sodium Chloride Flush 3 ML SYRINGE IVFLUSH (08:24)
[2022-08-06] MEDS: Empagliflozin 10 MG TABLET PO (08:24)
[2022-08-06] MEDS: Ascorbic Acid 500 MG TABLET 1000 MG PO ×2 (08:24→22:16)
[2022-08-06] MEDS: Apixaban 5 MG TABLET PO ×2 (08:24→22:15)
[2022-08-06] MEDS: Cholecalciferol (Vitamin D3) 25 MCG TABLET 50 MCG PO (08:24)
[2022-08-06] MEDS: cefTRIAXone sodium 1 GM in 0.9 % Sodium Chloride 50 ML IV (08:25)
[2022-08-06 11:22] LABS: Anion Gap 14 (12-20); Blood Urea Nitrogen 30 mg/dL (9-16); Calcium 8.9 mg/dL (8.4-10.2); Carbon Dioxide 32 mmol/L (22-29); Chloride 98 mmol/L (96-108); Creatinine Clr Calc Pharmacy 71.1; Estimated Glomerular Filt Rate 42; Glucose Random 188 mg/dL (60-115); Potassium 4.2 mmol/L (3.3-5.1); Sodium 140 mmol/L (135-145)
[2022-08-06 11:50] VITALS: BP 164/68; PULSE 79; RESP 20; TEMP 36.6; O2SAT 94
[2022-08-06] MEDS: Furosemide 200 MG in 0.9 % Sodium Chloride 80 ML IVCONT (11:51)
[2022-08-06] MEDS: amLODIPine Besylate 5 MG TABLET PO (11:53)
--- NOTE | 2022-08-06 11:56 | P.PNIM_ITS ---
Subjective Subjective Date of Service: 08/06/22 Interval History: Notes overall improvement with increase of Lasix drip. States legs much better. No longer with O2 requirement Review of Systems Denies chest pain Admits shortness of breath with minimal exertion Denies nausea vomiting diarrhea Denies fever chills Physical Exam Vital Signs: Vital Signs: Last Vital Signs Temp 97.8 F 08/06/22 11:50 Pulse 79 08/06/22 11:50 Resp 20 08/06/22 11:50 BP 164/68 H 08/06/22 11:50 Pulse Ox 94 08/06/22 11:50 O2 Del Method Room Air 08/06/22 11:50 O2 Flow Rate 3 08/05/22 15:17 Oxygen Flow Rate 2 08/02/22 16:53 BMI result Body Mass Index 60.4 Const: Other: Awake alert no acute distress Resp: Other: Diminished at bases; scant crackles at bases Cardio: Other: No S4; positive S1-S2; no S3 murmurs rubs or gallops Extrem: Other: Chronic venous stasis changes bilateral lower extremities. Objective Data Active Medications Acetaminophen (Acetaminophen 325 Mg Tablet) 650 mg PO Q6H PRN PRN Reason: Pain, Mild (Pain Scale 1-3) Allopurinol (Allopurinol 300 Mg Tablet) 300 mg PO DAILY [facility] Last Admin: 08/06/22 08:24 Dose: 300 mg Documented By: JENNIFER Amlodipine Besylate (Amlodipine Besylate 5 Mg Tablet) 5 mg PO DAILY@1200 [place]; Protocol Last Admin: 08/06/22 11:53 Dose: 5 mg Documented By: JENNIFER Apixaban (Apixaban 5 Mg Tablet) 5 mg PO BID [facility] Last Admin: 08/06/22 08:24 Dose: 5 mg Documented By: JENNIFER Ascorbic Acid (Ascorbic Acid 500 Mg Tablet) 1,000 mg PO BID [facility] Last Admin: 08/06/22 08:24 Dose: 1,000 mg Documented By: JENNIFER Atorvastatin Calcium (Atorvastatin Calcium 80 Mg Tablet) 80 mg PO BEDTIME [facility] Last Admin: 08/05/22 21:00 Dose: 80 mg Documented By: RADHA Cyanocobalamin (Cyanocobalamin (Vitamin B-12) 100 Mcg Tablet) 200 mcg PO DAILY [facility] Last Admin: 08/06/22 08:24 Dose: 200 mcg Documented By: JENNIFER Docusate Sodium (Docusate Sodium 100 Mg Capsule) 100 mg PO DAILY PRN PRN Reason: Constipation Empagliflozin (Empagliflozin 10 Mg Tablet) 10 mg PO DAILY [facility] Last Admin: 08/06/22 08:24 Dose: 10 mg Documented By: JENNIFER Glucose (Glucose Gel 15 Gm Gel..Gram.) 15 gm PO Q15M PRN; Protocol PRN Reason: per Hypoglycemia Standing Ord. Dextrose (D10) 250 mls @ 750 mls/hr IV Q15M PRN; Protocol PRN Reason: per Hypoglycemia Standing Ord. Ceftriaxone Sodium 1 gm/ (Sodium Chloride) 50 mls @ 100 mls/hr IV Q24H [facility] Last Infusion: 08/06/22 09:00 Dose: 0 mls/hr Documented By: JENNIFER Furosemide 200 mg/ Sodium (Chloride) 100 mls @ 5 mls/hr IVCONT .Q20H [facility] Last Admin: 08/06/22 11:51 Dose: 10 mg/hr, 5 mls/hr Documented By: JENNIFER Insulin Glargine (Insulin Glargine,Hum.Rec.Anlog 100 Unit/Ml 10 Ml Vial) 28 unit SUBCUT BEDTIME [facility] Last Admin: 08/05/22 21:01 Dose: 28 unit Documented By: RADHA Insulin Human Lispro (Insulin Lispro 100 Unit/Ml 3 Ml Vial) 16 unit SUBCUT DAILY@1130 [facility] Last Admin: 08/06/22 11:53 Dose: Not Given Documented By: JENNIFER Non-Admin Reason: No Insulin Coverage Insulin Human Lispro (Insulin Lispro 100 Unit/Ml 3 Ml Vial) 8 unit SUBCUT DAILY@0730 [facility] Last Admin: 08/06/22 07:46 Dose: Not Given Documented By: JENNIFER Non-Admin Reason: No Insulin Coverage Insulin Human Lispro (Insulin Lispro 100 Unit/Ml 3 Ml Vial) 20 unit SUBCUT DAILY@1630 [facility] Last Admin: 08/05/22 17:16 Dose: Not Given Documented By: LINDA Non-Admin Reason: Physician Held Med Insulin Human Lispro (Insulin Lispro 100 Unit/Ml 3 Ml Vial) 0 unit SUBCUT QIDACHS [facility]; Protocol Last Admin: 08/06/22 11:52 Dose: 2 unit Documented By: JENNIFER Patientown Med ( Methenamine Hippurate 1 Gram Tablet) 1 gm PO BID [facility] Last Admin: 08/06/22 08:24 Dose: 1 gm Documented By: JENNIFER Ondansetron HCl (Ondansetron Hcl 4 Mg/2 Ml Vial) 4 mg IVPUSH Q8H PRN PRN Reason: Nausea and Vomiting Pharmacy Consult (Consult Rx Perform Med Rec) 1 each MISCELLANE ONCE PRN PRN Reason: Consult order Sodium Chloride (0.9 % Sodium Chloride Flush 3 Ml Syringe) 3 ml IVFLUSH QSHIFT [facility] Last Admin: 08/06/22 08:24 Dose: 3 ml Documented By: JENNIFER Tamsulosin HCl (Tamsulosin Hcl 0.4 Mg Capsule) 0.4 mg PO BEDTIME [facility] Last Admin: 08/05/22 21:08 Dose: 0.4 mg Documented By: RADHA Vitamin D (Cholecalciferol (Vitamin D3) 25 Mcg Tablet) 50 mcg PO DAILY [facility] Last Admin: 08/06/22 08:24 Dose: 50 mcg Documented By: JENNIFER Labs 08/05/22 06:38 08/06/22 10:47 Labs: Laboratory Results - last 24 hr 08/05/22 08/05/22 08/05/22 11:33 16:09 20:35 Anion Gap Estim Creat Clear Calc Estimated GFR POC Glucose 189 H 181 H 186 H Random Glucose Calcium 08/06/22 08/06/22 07:18 10:47 Anion Gap 14 Estim Creat Clear Calc 71.1 Estimated GFR 42 POC Glucose 180 H Random Glucose 188 H Calcium 8.9 Assessment and Plan (1) Community acquired pneumonia: Status: Acute (2) Acute exacerbation of CHF (congestive heart failure): Status: Acute (3) Acute UTI: Status: Acute Plan 71-year-old male with past medical history of diabetes, hypertension presents to the hospital with shortness of breath found to have pneumonia and evidence of CHF. Responding well to diuresis 1.Community-acquired pneumonia -Ceftriaxone/Azithro (6) -titrate O2 to maintain sats greater equal to 90% ?2.Acute CHF exacerbation, report much weight gain -good response to increase Lasix drip to 10 milligrams/hour -Monitor I/O, weight -follow renal/divalents 3. ESBL UTI -E coli. .. Not ESBL -sensitive to ceftriaxone. . . Continue same 4.Diabetes II -continue basal insulin -lispro correctional scale -adjust as indicated [place] Full code Requires ongoing hospitalization for IV antibiotics to cover community-acquired pneumonia. Also requires continued hospitalization for acute CHF exacerbation requiring IV Lasix drip Time Spent With Patient Time: Total time managing care of this patient today ____ minutes. Quality Stroke Does the patient have a stroke diagnosis?: No VTE Prior VTE?: No VTE Risk Level:: Medical - moderate - high VTE Device Contraindication: Treatment Not Indicated VTE Drug Contraindication: N/A - Med Ordered
[2022-08-06 12:08] LABS: Glucose, Whole Blood 165 mg/dL (60-115)
--- NOTE | 2022-08-06 12:09 | PM.PNCARD ---
Subjective Subjective Date of Service: 08/06/22 Principal diagnosis: decompensated congestive heart failure, atrial fibrillation Interval history: Patient still has some cough with expected phlegm overnight. Was having trouble breathing last night but says overall feels better compared to when he came in. Has been diuresing well. Overall negative balance about 7 L. still has leg edema. Review of Systems Constitutional: Reports no additional constitutional complaints Cardiovascular: Denies chest pain, Denies syncope, Denies rapid heart rate, Reports leg edema, Denies Loss of Consciousness, Denies palpitations and Reports dyspnea on exertion Respiratory: Reports dyspnea on exertion Reports system reviewed and no additional complaints, except as documented and Denies syncope Endocrine: Denies palpitations Physical Exam Vital Signs: Last Vital Signs Temp 97.8 F 08/06/22 11:50 Pulse 79 08/06/22 11:50 Resp 20 08/06/22 11:50 BP 164/68 H 08/06/22 11:50 Pulse Ox 94 08/06/22 11:50 O2 Del Method Room Air 08/06/22 11:50 O2 Flow Rate 3 08/05/22 15:17 Oxygen Flow Rate 2 08/02/22 16:53 BMI result Body Mass Index 60.4 Const General: cooperative, alert, awake and in distress moderate and respiratory Nutritional Appearance: obese morbidly obese Orientation/consciousness: patient oriented x3 Neck Neck: Yes trachea midline, Yes supple and Yes JVD Resp Effort & Inspection: normal respiratory effort Auscultation: no rales, no wheezes and diminished lung sounds Cardio Jugular venous distension: JVD Rhythm: abnormal rhythm irregularly irregular Heart sounds: S1 normal heart sound present, S2 normal heart sound present, no click, no gallops, no murmurs and no rubs GI Inspection: Yes distended and Yes Abdominal panniculus present Auscultation: normal bowel sounds Skin General skin exam: no rashes or lesions noted Neuro General: patient oriented x3 and no focal motor deficits Extrem General: No clubbing, No cyanosis and Yes edema Objective Labs and Meds 08/05/22 06:38 08/06/22 10:47 Lab results: Laboratory Results - last 24 hr 08/05/22 08/05/22 08/06/22 16:09 20:35 07:18 Sodium Potassium Chloride Carbon Dioxide Anion Gap BUN Creatinine Estim Creat Clear Calc Estimated GFR POC Glucose 181 H 186 H 180 H Random Glucose Calcium 08/06/22 08/06/22 10:47 11:48 Sodium 140 Potassium 4.2 Chloride 98 Carbon Dioxide 32 H Anion Gap 14 BUN 30 H Creatinine 1.62 H Estim Creat Clear Calc 71.1 Estimated GFR 42 POC Glucose 165 H Random Glucose 188 H Calcium 8.9 Progress Note: A&P Assessment and plan (1) Acute exacerbation of CHF (congestive heart failure): Status: Acute Assessment and Plan: Persistent significant fluid overload with decompensated heart failure with predominantly right heart failure syndrome. Continue IV diuresis. Strict intake and output chart needs to be pursued. Currently responding to Lasix. Jardiance is been added. Please also add Aldactone 25 mg to his regimen. Continue monitor renal function on a daily basis. Given his body habitus and difficult to assess fluid status he might be a good can for CardioMEMS device as an outpatient. This was discussed with him. He will think about it. Goals of therapy were discussed. Continue CPAP therapy. Eventually in the long run can also attempt to pursue rhythm control approach if possible given unknown duration of atrial fibrillation to help his overall heart failure syndrome. Most likely require antiarrhythmic drug support. (2) Chronic atrial fibrillation: Status: Acute Assessment and Plan: Chronic persistent atrial fibrillation for unclear duration. Could be greater than 1 year. Unsure. Rate is currently adequately controlled. May need to pursue rhythm control approach as outpatient to help his heart failure syndrome. He is interested in this although may be very difficult to maintain rhythm in the long given his multiple comorbidities including morbid obesity. Continue CPAP therapy. Continue full oral anticoagulation Eliquis. Will continue to follow with you. Thank you for allowing me to partake in his care Time Spent With Patient Time: Total time managing care of this patient today ____ minutes. Progress Note: Quality Stroke Does the patient have a stroke diagnosis?: No Procedures Date of Service Date of Service: 08/06/22
[2022-08-06 15:37] VITALS: BP 122/60; PULSE 86; RESP 20; TEMP 36.3; O2SAT 97
[2022-08-06 16:24] LABS: Glucose, Whole Blood 214 mg/dL (60-115)
[2022-08-06 19:06] VITALS: BP 131/64; PULSE 57; RESP 20; TEMP 36.5; O2SAT 98
[2022-08-06 20:07] LABS: Glucose, Whole Blood 167 mg/dL (60-115)
[2022-08-06] MEDS: Tamsulosin HCL 0.4 MG CAPSULE PO (22:15)
[2022-08-06] MEDS: Atorvastatin Calcium 80 MG TABLET PO (22:15)
[2022-08-06] MEDS: Insulin Glargine,Hum.rec.anlog 100 UNIT/ML 10 ML VIAL 28 UNIT SUBCUT (22:17)
[2022-08-06 23:33] VITALS: BP 162/68; PULSE 67; RESP 18; TEMP 36.1; O2SAT 94
[2022-08-07 03:48] VITALS: BP 145/65; PULSE 64; RESP 18; TEMP 36.3; O2SAT 94
[2022-08-07] MEDS: Furosemide 200 MG in 0.9 % Sodium Chloride 80 ML IVCONT (05:43)
[2022-08-07 05:44] VITALS: BMI 58.9
[2022-08-07 06:31] LABS: MANUAL DIFF FLAG NO
[2022-08-07 06:51] LABS: Basophils Absolute Auto 0.1 X10*3/uL (0.0-0.2); Basophils Percent Auto 0.9 % (0-2); Eosinophils Absolute Auto 0.5 X10*3/uL (0.0-0.4); Eosinophils Percent Auto 5.5 % (0-4); Hematocrit 38.6 % (42.0-52.0); Imm Gran Abs Auto 0.06 X10*3/uL (0.00-0.03); Imm Gran Pct Auto 0.7 % (0.0-0.4); Lymphocytes Absolute Auto 1.1 X10*3/uL (1.2-4.9); Lymphocytes Percent Auto 12.7 % (20-40); Mean Corpuscular HGB Conc 31.1 g/dl (31.0-36.0); Mean Corpuscular Hemoglobin 28.4 pg (27.0-33.0); Mean Corpuscular Volume 91.3 fL (80.0-98.0); Mean Platelet Volume 10.5 fL (9.4-12.4); Monocytes Absolute Auto 0.6 X10*3/uL (0.1-1.2); Monocytes Percent Auto 7.2 % (2-11); Neutrophils Absolute Auto 6.2 x10*3/uL (2.0-8.3); Platelet Count 242 X10*3/uL (160-400); Red Blood Count 4.23 X10*6/uL (4.60-5.80); Red Cell Distribution Width 15.8 % (11.0-16.0); White Blood Count 8.5 X10*3/uL (4.8-10.8)
[2022-08-07 07:03] LABS: Alanine Aminotransferase 10 U/L (0-40); Albumin Level 3.4 g/dL (3.5-5.0); Alkaline Phosphatase 90 U/L (39-117); Anion Gap 16 (12-20); Aspartate Amino Transferase 12 U/L (5-37); Blood Urea Nitrogen 31 mg/dL (9-16); Carbon Dioxide 32 mmol/L (22-29); Chloride 95 mmol/L (96-108); Creatinine Clr Calc Pharmacy 66.2; Estimated Glomerular Filt Rate 40; Glucose Random 200 mg/dL (60-115); Sodium 139 mmol/L (135-145); Total Protein 6.4 g/dL (6.5-8.0)
[2022-08-07 07:24] LABS: Glucose, Whole Blood 190 mg/dL (60-115)
[2022-08-07 07:50] VITALS: BP 141/69; PULSE 74; RESP 22; TEMP 36.7; O2SAT 96
[2022-08-07] MEDS: Insulin Lispro 100 UNIT/ML 3 ML VIAL SUBCUT ×4 (07:52→20:36)
[2022-08-07] MEDS: allopurinoL 300 MG TABLET PO (07:53)
[2022-08-07] MEDS: Empagliflozin 10 MG TABLET PO (07:53)
[2022-08-07] MEDS: Apixaban 5 MG TABLET PO ×2 (07:53→20:28)
[2022-08-07] MEDS: Cholecalciferol (Vitamin D3) 25 MCG TABLET 50 MCG PO (07:53)
[2022-08-07] MEDS: Cyanocobalamin (Vitamin B-12) 100 MCG TABLET 200 MCG PO (07:53)
[2022-08-07] MEDS: Ascorbic Acid 500 MG TABLET 1000 MG PO ×2 (07:53→20:28)
[2022-08-07] MEDS: 0.9 % Sodium Chloride Flush 3 ML SYRINGE IVFLUSH ×3 (07:54→20:29)
[2022-08-07] MEDS: cefTRIAXone sodium 1 GM in 0.9 % Sodium Chloride 50 ML IV (07:54)
--- NOTE | 2022-08-07 11:29 | P.PNCA_ITS ---
Subjective Subjective Date of Service: 08/07/22 Principal diagnosis: decompensated congestive heart failure, atrial fibrillation Interval history: Patient is feeling better breathing better but feels tired as he did not sleep overnight due to frequent urination. He says however shortness of breath is much improved. Leg edema is getting better. Overall negative balance of 10 L. Review of Systems Constitutional: Reports fatigue and Reports weakness Cardiovascular: Reports leg edema, Denies palpitations and Reports dyspnea Respiratory: Reports dyspnea Genitourinary: Reports nocturia Reports weakness Endocrine: Reports fatigue and Denies palpitations Physical Exam Vital Signs: Last Vital Signs Temp 98.1 F 08/07/22 07:50 Pulse 74 08/07/22 07:50 Resp 22 H 08/07/22 07:50 BP 141/69 H 08/07/22 07:50 Pulse Ox 96 08/07/22 07:50 O2 Del Method Room Air 08/07/22 07:50 O2 Flow Rate 3 08/05/22 15:17 Oxygen Flow Rate 2 08/02/22 16:53 BMI result Body Mass Index 58.9 Const General: cooperative, alert, awake and in distress moderate and respiratory Nutritional Appearance: obese morbidly obese Orientation/consciousness: patient oriented x3 Neck Neck: Yes trachea midline, Yes supple and Yes JVD Resp Effort & Inspection: normal respiratory effort Auscultation: no rales, no wheezes and diminished lung sounds Cardio Jugular venous distension: JVD Rhythm: abnormal rhythm irregularly irregular Heart sounds: S1 normal heart sound present, S2 normal heart sound present, no click, no gallops, no murmurs and no rubs GI Inspection: Yes distended and Yes Abdominal panniculus present Auscultation: normal bowel sounds Skin General skin exam: no rashes or lesions noted Neuro General: patient oriented x3 and no focal motor deficits Extrem General: No clubbing, No cyanosis and Yes edema Objective Labs and Meds 08/07/22 06:15 08/07/22 06:15 Lab results: Laboratory Results - last 24 hr 08/06/22 08/06/22 08/06/22 11:48 16:17 20:03 WBC RBC Hgb Hct MCV MCH MCHC RDW Plt Count MPV Immature Gran % (Auto) Neut % (Auto) Lymph % (Auto) [place] % (Auto) Eos % (Auto) Baso % (Auto) Lymph # (Auto) [place] # (Auto) Eos # (Auto) Baso # (Auto) Abs Immat Gran (auto) Absolute Neuts (auto) Absolute Nucleated RBC Nucleated RBC % (auto) Sodium Potassium Chloride Carbon Dioxide Anion Gap BUN Creatinine Estim Creat Clear Calc Estimated GFR POC Glucose 165 H 214 H 167 H Random Glucose Calcium Total Bilirubin AST ALT Alkaline Phosphatase Total Protein Albumin 08/07/22 08/07/22 08/07/22 06:15 06:15 07:12 WBC 8.5 RBC 4.23 L Hgb 12.0 L Hct 38.6 L MCV 91.3 MCH 28.4 MCHC 31.1 RDW 15.8 Plt Count 242 MPV 10.5 Immature Gran % (Auto) 0.7 H Neut % (Auto) 73.0 Lymph % (Auto) 12.7 L [place] % (Auto) 7.2 Eos % (Auto) 5.5 H Baso % (Auto) 0.9 Lymph # (Auto) 1.1 L [place] # (Auto) 0.6 Eos # (Auto) 0.5 H Baso # (Auto) 0.1 Abs Immat Gran (auto) 0.06 H Absolute Neuts (auto) 6.2 Absolute Nucleated RBC 0.000 Nucleated RBC % (auto) 0.0 Sodium 139 Potassium 4.0 Chloride 95 L Carbon Dioxide 32 H Anion Gap 16 BUN 31 H Creatinine 1.71 H Estim Creat Clear Calc 66.2 Estimated GFR 40 POC Glucose 190 H Random Glucose 200 H Calcium 9.0 Total Bilirubin 1.0 AST 12 ALT 10 Alkaline Phosphatase 90 Total Protein 6.4 L Albumin 3.4 L Progress Note: A&P Assessment and plan (1) Acute exacerbation of CHF (congestive heart failure): Status: Acute Assessment and Plan: Patient with significant right heart failure with continued to have significant fluid overload. Continue IV diuresis strict intake and output chart. Continue monitor renal function closely as well as monitor for his weight on a daily basis. Continue current diuretic regimen. Continue Jardiance 10 mg daily. I think he will benefit from CardioMEMS device, he wants to discuss with his primary care physician which is appropriate. Continue rate control approach for atrial fibrillation at this point time. Any to pursue rhythm control approach although this will require most likely support with antiarrhythmic drug therapy. (2) Chronic atrial fibrillation: Status: Acute Assessment and Plan: Chronic atrial fibrillation at least for the last year most likely cause for his decompensated heart failure syndrome in addition to his multiple other comorbidities. Continue rate control for now. Continue full oral anticoa gulation Eliquis. Continue CPAP therapy. Will continue to follow with you Time Spent With Patient Time: Total time managing care of this patient today ____ minutes. Progress Note: Quality Stroke Does the patient have a stroke diagnosis?: No Procedures Date of Service Date of Service: 08/07/22
[2022-08-07 11:59] LABS: Glucose, Whole Blood 181 mg/dL (60-115)
--- NOTE | 2022-08-07 11:59 | HO.PM.IMPN ---
Subjective Subjective Date of Service: 08/07/22 Interval History: Notes improvement in breathing and swelling in legs. Extremely fatigued however secondary to increased urination Review of Systems Denies chest pain Admits shortness of breath with minimal exertion Denies nausea vomiting diarrhea Denies fever chills Physical Exam Vital Signs: Vital Signs: Last Vital Signs Temp 98.1 F 08/07/22 07:50 Pulse 74 08/07/22 07:50 Resp 22 H 08/07/22 07:50 BP 141/69 H 08/07/22 07:50 Pulse Ox 96 08/07/22 07:50 O2 Del Method Room Air 08/07/22 07:50 O2 Flow Rate 3 08/05/22 15:17 Oxygen Flow Rate 2 08/02/22 16:53 BMI result Body Mass Index 58.9 Const: Other: Awake alert no acute distress Resp: Other: Diminished at bases; scant crackles at bases Cardio: Other: No S4; positive S1-S2; no S3 murmurs rubs or gallops Extrem: Other: Chronic venous stasis changes bilateral lower extremities. Objective Data Active Medications Acetaminophen (Acetaminophen 325 Mg Tablet) 650 mg PO Q6H PRN PRN Reason: Pain, Mild (Pain Scale 1-3) Allopurinol (Allopurinol 300 Mg Tablet) 300 mg PO DAILY [facility] Last Admin: 08/07/22 07:53 Dose: 300 mg Documented By: JENNIFER Amlodipine Besylate (Amlodipine Besylate 5 Mg Tablet) 5 mg PO DAILY@1200 [place]; Protocol Last Admin: 08/06/22 11:53 Dose: 5 mg Documented By: JENNIFER Apixaban (Apixaban 5 Mg Tablet) 5 mg PO BID [facility] Last Admin: 08/07/22 07:53 Dose: 5 mg Documented By: JENNIFER Ascorbic Acid (Ascorbic Acid 500 Mg Tablet) 1,000 mg PO BID [facility] Last Admin: 08/07/22 07:53 Dose: 1,000 mg Documented By: JENNIFER Atorvastatin Calcium (Atorvastatin Calcium 80 Mg Tablet) 80 mg PO BEDTIME [facility] Last Admin: 08/06/22 22:15 Dose: 80 mg Documented By: AASHISH Cyanocobalamin (Cyanocobalamin (Vitamin B-12) 100 Mcg Tablet) 200 mcg PO DAILY [facility] Last Admin: 08/07/22 07:53 Dose: 200 mcg Documented By: JENNIFER Docusate Sodium (Docusate Sodium 100 Mg Capsule) 100 mg PO DAILY PRN PRN Reason: Constipation Empagliflozin (Empagliflozin 10 Mg Tablet) 10 mg PO DAILY [facility] Last Admin: 08/07/22 07:53 Dose: 10 mg Documented By: JENNIFER Glucose (Glucose Gel 15 Gm Gel..Gram.) 15 gm PO Q15M PRN; Protocol PRN Reason: per Hypoglycemia Standing Ord. Dextrose (D10) 250 mls @ 750 mls/hr IV Q15M PRN; Protocol PRN Reason: per Hypoglycemia Standing Ord. Ceftriaxone Sodium 1 gm/ (Sodium Chloride) 50 mls @ 100 mls/hr IV Q24H [facility] Last Infusion: 08/07/22 08:29 Dose: 0 mls/hr Documented By: JENNIFER Furosemide 200 mg/ Sodium (Chloride) 100 mls @ 5 mls/hr IVCONT .Q20H [facility] Last Admin: 08/07/22 05:43 Dose: 10 mg/hr, 5 mls/hr Documented By: AASHISH Insulin Glargine (Insulin Glargine,Hum.Rec.Anlog 100 Unit/Ml 10 Ml Vial) 28 unit SUBCUT BEDTIME [facility] Last Admin: 08/06/22 22:17 Dose: 28 unit Documented By: AASHISH Insulin Human Lispro (Insulin Lispro 100 Unit/Ml 3 Ml Vial) 16 unit SUBCUT DAILY@1130 [facility] Last Admin: 08/06/22 11:53 Dose: Not Given Documented By: JENNIFER Non-Admin Reason: No Insulin Coverage Insulin Human Lispro (Insulin Lispro 100 Unit/Ml 3 Ml Vial) 8 unit SUBCUT DAILY@0730 [facility] Last Admin: 08/07/22 07:52 Dose: Not Given Documented By: JENNIFER Non-Admin Reason: No Insulin Coverage Insulin Human Lispro (Insulin Lispro 100 Unit/Ml 3 Ml Vial) 20 unit SUBCUT DAILY@1630 [facility] Last Admin: 08/06/22 16:24 Dose: Not Given Documented By: JENNIFER Non-Admin Reason: No Insulin Coverage Insulin Human Lispro (Insulin Lispro 100 Unit/Ml 3 Ml Vial) 0 unit SUBCUT QIDACHS [facility]; Protocol Last Admin: 08/07/22 07:52 Dose: 2 unit Documented By: JENNIFER [facility] ( Methenamine Hippurate 1 Gram Tablet) 1 gm PO BID [facility] Last Admin: 08/07/22 07:53 Dose: 1 gm Documented By: JENNIFER Ondansetron HCl (Ondansetron Hcl 4 Mg/2 Ml Vial) 4 mg IVPUSH Q8H PRN PRN Reason: Nausea and Vomiting Pharmacy Consult (Consult Rx Perform Med Rec) 1 each MISCELLANE ONCE PRN PRN Reason: Consult order Sodium Chloride (0.9 % Sodium Chloride Flush 3 Ml Syringe) 3 ml IVFLUSH QSHIFT [facility] Last Admin: 08/07/22 07:54 Dose: 3 ml Documented By: JENNIFER Tamsulosin HCl (Tamsulosin Hcl 0.4 Mg Capsule) 0.4 mg PO BEDTIME [facility] Last Admin: 08/06/22 22:15 Dose: 0.4 mg Documented By: AASHISH Vitamin D (Cholecalciferol (Vitamin D3) 25 Mcg Tablet) 50 mcg PO DAILY [facility] Last Admin: 08/07/22 07:53 Dose: 50 mcg Documented By: JENNIFER Labs 08/07/22 06:15 08/07/22 06:15 Labs: Laboratory Results - last 24 hr 08/06/22 08/06/22 08/06/22 11:48 16:17 20:03 MCV MCH MCHC RDW Plt Count MPV Immature Gran % (Auto) Neut % (Auto) Lymph % (Auto) [place] % (Auto) Eos % (Auto) Baso % (Auto) Lymph # (Auto) [place] # (Auto) Eos # (Auto) Baso # (Auto) Abs Immat Gran (auto) Absolute Neuts (auto) Absolute Nucleated RBC Nucleated RBC % (auto) Anion Gap Estim Creat Clear Calc Estimated GFR POC Glucose 165 H 214 H 167 H Random Glucose Calcium Total Bilirubin AST ALT Alkaline Phosphatase Total Protein Albumin 08/07/22 08/07/22 08/07/22 06:15 06:15 07:12 MCV 91.3 MCH 28.4 MCHC 31.1 RDW 15.8 Plt Count 242 MPV 10.5 Immature Gran % (Auto) 0.7 H Neut % (Auto) 73.0 Lymph % (Auto) 12.7 L [place] % (Auto) 7.2 Eos % (Auto) 5.5 H Baso % (Auto) 0.9 Lymph # (Auto) 1.1 L [place] # (Auto) 0.6 Eos # (Auto) 0.5 H Baso # (Auto) 0.1 Abs Immat Gran (auto) 0.06 H Absolute Neuts (auto) 6.2 Absolute Nucleated RBC 0.000 Nucleated RBC % (auto) 0.0 Anion Gap 16 Estim Creat Clear Calc 66.2 Estimated GFR 40 POC Glucose 190 H Random Glucose 200 H Calcium 9.0 Total Bilirubin 1.0 AST 12 ALT 10 Alkaline Phosphatase 90 Total Protein 6.4 L Albumin 3.4 L Assessment and Plan (1) Community acquired pneumonia: Status: Acute (2) Acute exacerbation of CHF (congestive heart failure): Status: Acute (3) Acute UTI: Status: Acute Plan 71-year-old male with past medical history of diabetes, hypertension presents to the hospital with shortness of breath found to have pneumonia and evidence of CHF. Responding well to diuresis 1.Community-acquired pneumonia -Ceftriaxone/Azithro (7) -titrate O2 to maintain sats greater equal to 90% ?2.Acute CHF exacerbation, report much weight gain -good response to increase Lasix drip to 10 milligrams/hour -Monitor I/O, weight (10 L negative). .. Question condom cath overnight -follow renal/divalents 3. ESBL UTI -E coli. .. Not ESBL -sensitive to ceftriaxone. . . Continue same -DC in a.m. 4.Diabetes II -continue basal insulin -lispro correctional scale -adjust as indicated Eliquis Full code Requires ongoing hospitalization for IV antibiotics to cover community-acquired pneumonia. Also requires continued hospitalization for acute CHF exacerbation requiring IV Lasix drip Time Spent With Patient Time: Total time managing care of this patient today ____ minutes. Quality Stroke Does the patient have a stroke diagnosis?: No VTE Prior VTE?: No VTE Risk Level:: Medical - moderate - high VTE Device Contraindication: Treatment Not Indicated VTE Drug Contraindication: N/A - Med Ordered
[2022-08-07 12:00] VITALS: BP 143/65; PULSE 85; RESP 20; TEMP 37; O2SAT 6
[2022-08-07] MEDS: amLODIPine Besylate 5 MG TABLET PO (12:36)
[2022-08-07 15:03] VITALS: BP 124/58; PULSE 74; RESP 20; TEMP 36.2; O2SAT 96
[2022-08-07 16:13] LABS: Glucose, Whole Blood 208 mg/dL (60-115)
[2022-08-07 20:00] VITALS: BP 144/67; PULSE 75; RESP 18; TEMP 36.4; O2SAT 95
[2022-08-07] MEDS: Tamsulosin HCL 0.4 MG CAPSULE PO (20:28)
[2022-08-07] MEDS: Atorvastatin Calcium 80 MG TABLET PO (20:28)
[2022-08-07] MEDS: Insulin Glargine,Hum.rec.anlog 100 UNIT/ML 10 ML VIAL 28 UNIT SUBCUT (20:29)
[2022-08-07 20:31] LABS: Glucose, Whole Blood 226 mg/dL (60-115)
[2022-08-08] VITALS: BP 147/67; PULSE 69; RESP 20; TEMP 36.6; O2SAT 95
[2022-08-08] MEDS: Furosemide 200 MG in 0.9 % Sodium Chloride 80 ML IVCONT ×2 (00:24→21:26)
[2022-08-08 04:00] VITALS: BP 110/55; PULSE 76; RESP 18; TEMP 36.3; O2SAT 94
[2022-08-08 05:59] LABS: MANUAL DIFF FLAG NO
[2022-08-08 06:14] LABS: Basophils Absolute Auto 0.1 X10*3/uL (0.0-0.2); Basophils Percent Auto 0.5 % (0-2); Eosinophils Absolute Auto 0.5 X10*3/uL (0.0-0.4); Eosinophils Percent Auto 4.6 % (0-4); Hematocrit 42.2 % (42.0-52.0); Hemoglobin 13.3 g/dl (14.0-18.0); Imm Gran Abs Auto 0.07 X10*3/uL (0.00-0.03); Imm Gran Pct Auto 0.6 % (0.0-0.4); Lymphocytes Absolute Auto 2.4 X10*3/uL (1.2-4.9); Lymphocytes Percent Auto 21.8 % (20-40); Mean Corpuscular HGB Conc 31.5 g/dl (31.0-36.0); Mean Corpuscular Hemoglobin 28.5 pg (27.0-33.0); Mean Corpuscular Volume 90.6 fL (80.0-98.0); Mean Platelet Volume 10.1 fL (9.4-12.4); Monocytes Absolute Auto 0.8 X10*3/uL (0.1-1.2); Monocytes Percent Auto 7.5 % (2-11); Platelet Count 254 X10*3/uL (160-400); Red Blood Count 4.66 X10*6/uL (4.60-5.80); Red Cell Distribution Width 15.7 % (11.0-16.0); White Blood Count 10.8 X10*3/uL (4.8-10.8)
[2022-08-08 06:37] LABS: Alanine Aminotransferase 11 U/L (0-40); Albumin Level 3.8 g/dL (3.5-5.0); Alkaline Phosphatase 102 U/L (39-117); Anion Gap 17 (12-20); Aspartate Amino Transferase 14 U/L (5-37); Bilirubin Total 1.1 mg/dL (0.0-1.0); Blood Urea Nitrogen 34 mg/dL (9-16); Calcium 9.3 mg/dL (8.4-10.2); Carbon Dioxide 32 mmol/L (22-29); Chloride 94 mmol/L (96-108); Creatinine Clr Calc Pharmacy 58.1; Estimated Glomerular Filt Rate 34; Glucose Random 177 mg/dL (60-115); Potassium 3.9 mmol/L (3.3-5.1); Sodium 139 mmol/L (135-145); Total Protein 7.1 g/dL (6.5-8.0)
[2022-08-08 07:30] VITALS: BMI 58.1
[2022-08-08 07:37] VITALS: BP 143/67; PULSE 75; RESP 20; TEMP 36.5; O2SAT 92
[2022-08-08] MEDS: Cyanocobalamin (Vitamin B-12) 100 MCG TABLET 200 MCG PO (08:23)
[2022-08-08] MEDS: Insulin Lispro 100 UNIT/ML 3 ML VIAL 8 UNIT SUBCUT (08:23)
[2022-08-08] MEDS: Cholecalciferol (Vitamin D3) 25 MCG TABLET 50 MCG PO (08:23)
[2022-08-08] MEDS: Insulin Lispro 100 UNIT/ML 3 ML VIAL SUBCUT ×3 (08:23→21:30)
[2022-08-08] MEDS: Apixaban 5 MG TABLET PO ×2 (08:24→21:29)
[2022-08-08] MEDS: allopurinoL 300 MG TABLET PO (08:24)
[2022-08-08] MEDS: Ascorbic Acid 500 MG TABLET 1000 MG PO ×2 (08:24→21:28)
[2022-08-08] MEDS: Empagliflozin 10 MG TABLET PO (08:24)
[2022-08-08 08:39] VITALS: BMI 58.1
--- NOTE | 2022-08-08 10:20 | MHC.CM.PN ---
Per ROUNDS discussion, Patient is not yet medically cleared for dc (IV Lasix); home/resume services is the goal and CM will continue to follow.
[2022-08-08] MEDS: cefTRIAXone sodium 1 GM in 0.9 % Sodium Chloride 50 ML IV (10:36)
[2022-08-08 11:23] VITALS: BP 155/69; PULSE 72; RESP 20; TEMP 36.7; O2SAT 95
--- NOTE | 2022-08-08 11:23 | PM.PNCARD ---
Subjective Subjective Date of Service: 08/08/22 Principal diagnosis: decompensated congestive heart failure, atrial fibrillation Interval history: Overall, some improvement since the time of admission. He still seems volume overloaded. However, because of his weight difficult to assess. Review of Systems Review of Systems Yes all other systems are reviewed and are negative Constitutional: Reports as per HPI and Reports no additional constitutional complaints Eyes: Reports as per HPI and Denies no additional eye complaints Denies system reviewed and no additional complaints, except as documented and Reports as per HPI Cardiovascular: Reports as per HPI, Reports no additional cardiovascular complaints, Denies acrocyanosis, Denies cool extremities, Denies chest pain, Reports leg edema, Denies lightheadedness, Denies palpitations and Reports dyspnea Respiratory: Reports as per HPI, Denies no additional respiratory complaints and Reports dyspnea Gastrointestinal: Reports as per HPI and Denies no additional gastrointestinal complaints Genitourinary: Reports no additional male genitourinary complaints and Reports as per HPI Musculoskeletal: Reports no additional musculoskeletal complaints and Reports as per HPI Skin/Breast: Reports system reviewed and no additional complaints, except as docu Reports system reviewed and no additional complaints, except as documented and Reports as per HPI Psychiatric: Reports no additional psychiatric complaints and Reports as per HPI Endocrine: Reports no additional endocrine complaints, Reports as per HPI and Denies palpitations Hematologic/Lymphatic: Reports no additional hematologic/lymphatic complaints and Reports as per HPI Allergic/Immunologic: Reports no additional allergic/immunologic complaints and Reports as per HPI Physical Exam Vital Signs: Last Vital Signs Temp 98.0 F 08/08/22 11:23 Pulse 72 08/08/22 11:23 Resp 20 08/08/22 11:23 BP 155/69 H 08/08/22 11:23 Pulse Ox 95 08/08/22 11:23 O2 Del Method Room Air 08/08/22 11:23 O2 Flow Rate 3 08/05/22 15:17 Oxygen Flow Rate 2 08/02/22 16:53 BMI result Body Mass Index 58.1 Const General: comfortable and no acute distress Orientation/consciousness: patient oriented x3 HEENT Other: Unremarkable Head: Yes normal to inspection Neck Neck: Yes normal visual inspection Chest Chest palpation & inspection: normal inspection of the chest Resp Other: Few inspiratory crackles. Cardio Palpation: normal PMI Heart sounds: S1 normal heart sound present, S2 normal heart sound present, no gallops, no murmurs and no rubs GI Palpation (GI): Soft to palpation Back/Spine/Pelvis Other: unremarkable Skin General skin exam: no rashes or lesions noted Neuro General: patient oriented x3 Extrem Other: 2-3+ edema with chronic changes. Psych Mental Status: mental status grossly normal Objective Labs and Meds 08/08/22 05:55 08/08/22 05:55 Lab results: Laboratory Results - last 24 hr 08/07/22 08/07/22 08/07/22 11:49 16:07 20:27 WBC RBC Hgb Hct MCV MCH MCHC RDW Plt Count MPV Immature Gran % (Auto) Neut % (Auto) Lymph % (Auto) [place] % (Auto) Eos % (Auto) Baso % (Auto) Lymph # (Auto) [place] # (Auto) Eos # (Auto) Baso # (Auto) Abs Immat Gran (auto) Absolute Neuts (auto) Absolute Nucleated RBC Nucleated RBC % (auto) Sodium Potassium Chloride Carbon Dioxide Anion Gap BUN Creatinine Estim Creat Clear Calc Estimated GFR POC Glucose 181 H 208 H 226 H Random Glucose Calcium Total Bilirubin AST ALT Alkaline Phosphatase Total Protein Albumin 08/08/22 08/08/22 05:55 05:55 WBC 10.8 RBC 4.66 Hgb 13.3 L Hct 42.2 MCV 90.6 MCH 28.5 MCHC 31.5 RDW 15.7 Plt Count 254 MPV 10.1 Immature Gran % (Auto) 0.6 H Neut % (Auto) 65.0 Lymph % (Auto) 21.8 [place] % (Auto) 7.5 Eos % (Auto) 4.6 H Baso % (Auto) 0.5 Lymph # (Auto) 2.4 [place] # (Auto) 0.8 Eos # (Auto) 0.5 H Baso # (Auto) 0.1 Abs Immat Gran (auto) 0.07 H Absolute Neuts (auto) 7.0 Absolute Nucleated RBC 0.000 Nucleated RBC % (auto) 0.0 Sodium 139 Potassium 3.9 Chloride 94 L Carbon Dioxide 32 H Anion Gap 17 BUN 34 H Creatinine 1.95 H Estim Creat Clear Calc 58.1 Estimated GFR 34 POC Glucose Random Glucose 177 H Calcium 9.3 Total Bilirubin 1.1 H AST 14 ALT 11 Alkaline Phosphatase 102 Total Protein 7.1 Albumin 3.8 Progress Note: A&P Assessment and plan (1) Acute on chronic diastolic (congestive) heart failure: Status: Acute (2) Acute on chronic right heart failure: Status: Acute (3) Morbid obesity: Status: Acute (4) Chronic atrial fibrillation: Status: Acute Plan Creatinine 1.95. As today, it was 1.71. Overall, seems to be around this range. BUN 34. High sensitivity troponin 20.5. In the echocardiogram, LVEF 60-65%. Pseudo normal filling. Significantly elevated right atrial pressure. Significant pulmonary hypertension. Overall, volume overload from some combination of biventricular dysfunction. His weight as well as ARIEL definitely play a role in this. At this time, continue with IV Lasix drip. Can add a dose of metolazone today and assess response. Based on input/output information, he is -13 L. Time Spent With Patient Time: Total time managing care of this patient today ____ minutes. Progress Note: Quality Stroke Does the patient have a stroke diagnosis?: No Procedures Date of Service Date of Service: 08/08/22
[2022-08-08 11:46] LABS: Glucose, Whole Blood 251 mg/dL (60-115)
[2022-08-08 11:46] LABS: Glucose, Whole Blood 194 mg/dL (60-115)
[2022-08-08] MEDS: Insulin Lispro 100 UNIT/ML 3 ML VIAL 16 UNIT SUBCUT (12:14)
[2022-08-08] MEDS: amLODIPine Besylate 5 MG TABLET PO (12:15)
[2022-08-08] MEDS: metOLazone 5 MG TABLET PO (12:15)
--- NOTE | 2022-08-08 14:35 | P.PNIM_ITS ---
Subjective Subjective Date of Service: 08/08/22 Interval History: Continue to do well with diuresis. No cramping. Notes improvement in his legs Review of Systems Denies chest pain Admits shortness of breath with minimal exertion Denies nausea vomiting diarrhea Denies fever chills Physical Exam Vital Signs: Vital Signs: Last Vital Signs Temp 98.0 F 08/08/22 11:23 Pulse 72 08/08/22 11:23 Resp 20 08/08/22 11:23 BP 155/69 H 08/08/22 11:23 Pulse Ox 95 08/08/22 11:23 O2 Del Method Room Air 08/08/22 11:23 O2 Flow Rate 3 08/05/22 15:17 Oxygen Flow Rate 2 08/02/22 16:53 BMI result Body Mass Index 58.1 Const: Other: Awake alert no acute distress Resp: Other: Diminished at bases; scant crackles at bases Cardio: Other: No S4; positive S1-S2; no S3 murmurs rubs or gallops Extrem: Other: Chronic venous stasis changes bilateral lower extremities. Objective Data Active Medications Acetaminophen (Acetaminophen 325 Mg Tablet) 650 mg PO Q6H PRN PRN Reason: Pain, Mild (Pain Scale 1-3) Allopurinol (Allopurinol 300 Mg Tablet) 300 mg PO DAILY [facility] Last Admin: 08/08/22 08:24 Dose: 300 mg Documented By: DANIEL Amlodipine Besylate (Amlodipine Besylate 5 Mg Tablet) 5 mg PO DAILY@1200 [place]; Protocol Last Admin: 08/08/22 12:15 Dose: 5 mg Documented By: DANIEL Apixaban (Apixaban 5 Mg Tablet) 5 mg PO BID [facility] Last Admin: 08/08/22 08:24 Dose: 5 mg Documented By: DANIEL Ascorbic Acid (Ascorbic Acid 500 Mg Tablet) 1,000 mg PO BID [facility] Last Admin: 08/08/22 08:24 Dose: 1,000 mg Documented By: DANIEL Atorvastatin Calcium (Atorvastatin Calcium 80 Mg Tablet) 80 mg PO BEDTIME [facility] Last Admin: 08/07/22 20:28 Dose: 80 mg Documented By: ZARA Cyanocobalamin (Cyanocobalamin (Vitamin B-12) 100 Mcg Tablet) 200 mcg PO DAILY [facility] Last Admin: 08/08/22 08:23 Dose: 200 mcg Documented By: DANIEL Docusate Sodium (Docusate Sodium 100 Mg Capsule) 100 mg PO DAILY PRN PRN Reason: Constipation Empagliflozin (Empagliflozin 10 Mg Tablet) 10 mg PO DAILY [facility] Last Admin: 08/08/22 08:24 Dose: 10 mg Documented By: DANIEL Glucose (Glucose Gel 15 Gm Gel..Gram.) 15 gm PO Q15M PRN; Protocol PRN Reason: per Hypoglycemia Standing Ord. Dextrose (D10) 250 mls @ 750 mls/hr IV Q15M PRN; Protocol PRN Reason: per Hypoglycemia Standing Ord. Ceftriaxone Sodium 1 gm/ (Sodium Chloride) 50 mls @ 100 mls/hr IV Q24H [facility] Last Infusion: 08/08/22 11:07 Dose: 0 mls/hr Documented By: DANIEL Furosemide 200 mg/ Sodium (Chloride) 100 mls @ 5 mls/hr IVCONT .Q20H [facility] Last Admin: 08/08/22 00:24 Dose: 10 mg/hr, 5 mls/hr Documented By: ZARA Insulin Glargine (Insulin Glargine,Hum.Rec.Anlog 100 Unit/Ml 10 Ml Vial) 28 unit SUBCUT BEDTIME [facility] Last Admin: 08/07/22 20:29 Dose: 28 unit Documented By: ZARA Insulin Human Lispro (Insulin Lispro 100 Unit/Ml 3 Ml Vial) 16 unit SUBCUT DAILY@1130 [facility] Last Admin: 08/08/22 12:14 Dose: 16 unit Documented By: DANIEL Insulin Human Lispro (Insulin Lispro 100 Unit/Ml 3 Ml Vial) 8 unit SUBCUT DAILY@0730 [facility] Last Admin: 08/08/22 08:23 Dose: 8 unit Documented By: DANIEL Insulin Human Lispro (Insulin Lispro 100 Unit/Ml 3 Ml Vial) 20 unit SUBCUT DAILY@1630 [facility] Last Admin: 08/07/22 16:34 Dose: Not Given Documented By: JENNIFER Non-Admin Reason: No Insulin Coverage Insulin Human Lispro (Insulin Lispro 100 Unit/Ml 3 Ml Vial) 0 unit SUBCUT QIDACHS [facility]; Protocol Last Admin: 08/08/22 12:14 Dose: 6 unit Documented By: DANIEL [facility] ( Methenamine Hippurate 1 Gram Tablet) 1 gm PO BID [facility] Last Admin: 08/08/22 08:28 Dose: 1 gm Documented By: DANIEL Ondansetron HCl (Ondansetron Hcl 4 Mg/2 Ml Vial) 4 mg IVPUSH Q8H PRN PRN Reason: Nausea and Vomiting Pharmacy Consult (Consult Rx Perform Med Rec) 1 each MISCELLANE ONCE PRN PRN Reason: Consult order Sodium Chloride (0.9 % Sodium Chloride Flush 3 Ml Syringe) 3 ml IVFLUSH QSHIFT [facility] Last Admin: 08/08/22 08:29 Dose: Not Given Documented By: DANIEL Non-Admin Reason: IV Running Tamsulosin HCl (Tamsulosin Hcl 0.4 Mg Capsule) 0.4 mg PO BEDTIME [facility] Last Admin: 08/07/22 20:28 Dose: 0.4 mg Documented By: ZARA Vitamin D (Cholecalciferol (Vitamin D3) 25 Mcg Tablet) 50 mcg PO DAILY [facility] Last Admin: 08/08/22 08:23 Dose: 50 mcg Documented By: DANIEL Labs 08/08/22 05:55 08/08/22 05:55 Labs: Laboratory Results - last 24 hr 08/07/22 08/07/22 08/08/22 16:07 20:27 05:55 MCV 90.6 MCH 28.5 MCHC 31.5 RDW 15.7 Plt Count 254 MPV 10.1 Immature Gran % (Auto) 0.6 H Neut % (Auto) 65.0 Lymph % (Auto) 21.8 [place] % (Auto) 7.5 Eos % (Auto) 4.6 H Baso % (Auto) 0.5 Lymph # (Auto) 2.4 [place] # (Auto) 0.8 Eos # (Auto) 0.5 H Baso # (Auto) 0.1 Abs Immat Gran (auto) 0.07 H Absolute Neuts (auto) 7.0 Absolute Nucleated RBC 0.000 Nucleated RBC % (auto) 0.0 Anion Gap Estim Creat Clear Calc Estimated GFR POC Glucose 208 H 226 H Random Glucose Calcium Total Bilirubin AST ALT Alkaline Phosphatase Total Protein Albumin 08/08/22 08/08/22 08/08/22 05:55 07:40 11:25 MCV MCH MCHC RDW Plt Count MPV Immature Gran % (Auto) Neut % (Auto) Lymph % (Auto) [place] % (Auto) Eos % (Auto) Baso % (Auto) Lymph # (Auto) [place] # (Auto) Eos # (Auto) Baso # (Auto) Abs Immat Gran (auto) Absolute Neuts (auto) Absolute Nucleated RBC Nucleated RBC % (auto) Anion Gap 17 Estim Creat Clear Calc 58.1 Estimated GFR 34 POC Glucose 194 H 251 H Random Glucose 177 H Calcium 9.3 Total Bilirubin 1.1 H AST 14 ALT 11 Alkaline Phosphatase 102 Total Protein 7.1 Albumin 3.8 Microbiology Microbiology Results: Microbiology 08/02/22 19:49 Blood Culture - Final Blood - Venous No growth after 5 days. 08/02/22 18:45 Blood Culture - Final Blood - Venous No growth after 5 days. Assessment and Plan (1) Acute on chronic diastolic (congestive) heart failure: Status: Acute (2) Acute on chronic right heart failure: Status: Acute (3) Chronic atrial fibrillation: Status: Acute Plan 71-year-old male with past medical history of diabetes, hypertension presents to the hospital with shortness of breath found to have pneumonia and evidence of CHF. Responding well to diuresis 1.Community-acquired pneumonia -completed 7 days of antibiotic therapy will DC -O2 requirement resolved ?2.Acute CHF exacerbation -good response to increase Lasix drip to 10 milligrams/hour -Monitor I/O, weight (12 L negative). .. -single dose metolazone given today -follow renal/divalents 3. Chronic atrial fibrillation -rate control adequate -continue Eliquis 4.Diabetes II -continue basal insulin -lispro correctional scale -adjust as indicated Eliquis Full code Requires ongoing hospitalization for IV diuresis for exacerbation of CHF Time Spent With Patient Time: Total time managing care of this patient today ____ minutes. Quality Stroke Does the patient have a stroke diagnosis?: No VTE Prior VTE?: No VTE Risk Level:: Medical - moderate - high VTE Device Contraindication: Treatment Not Indicated VTE Drug Contraindication: N/A - Med Ordered
[2022-08-08 16:00] VITALS: BP 139/65; PULSE 80; RESP 18; TEMP 36.4; O2SAT 92
[2022-08-08 16:55] LABS: Glucose, Whole Blood 105 mg/dL (60-115)
[2022-08-08 20:00] VITALS: BP 136/72; PULSE 80; RESP 17; TEMP 36.3; O2SAT 92
[2022-08-08 20:49] LABS: Glucose, Whole Blood 255 mg/dL (60-115)
[2022-08-08] MEDS: Tamsulosin HCL 0.4 MG CAPSULE PO (21:29)
[2022-08-08] MEDS: Atorvastatin Calcium 80 MG TABLET PO (21:29)
[2022-08-08] MEDS: 0.9 % Sodium Chloride Flush 3 ML SYRINGE IVFLUSH (21:31)
[2022-08-08] MEDS: Insulin Glargine,Hum.rec.anlog 100 UNIT/ML 10 ML VIAL 28 UNIT SUBCUT (21:31)
[2022-08-09] VITALS (7 sets, daily range): BP systolic 123–164; BP diastolic 58–77; PULSE 60–77; RESP 17–20; TEMP 36.1–36.6; O2SAT 93–97; BMI 58.2
[2022-08-09 05:00] LABS: MANUAL DIFF FLAG NO
[2022-08-09 05:05] LABS: Basophils Absolute Auto 0.1 X10*3/uL (0.0-0.2); Basophils Percent Auto 0.6 % (0-2); Eosinophils Absolute Auto 0.4 X10*3/uL (0.0-0.4); Eosinophils Percent Auto 4.1 % (0-4); Hematocrit 41.9 % (42.0-52.0); Imm Gran Abs Auto 0.07 X10*3/uL (0.00-0.03); Imm Gran Pct Auto 0.7 % (0.0-0.4); Lymphocytes Absolute Auto 1.7 X10*3/uL (1.2-4.9); Lymphocytes Percent Auto 17.3 % (20-40); Mean Corpuscular Hemoglobin 27.5 pg (27.0-33.0); Mean Corpuscular Volume 88.8 fL (80.0-98.0); Mean Platelet Volume 10.5 fL (9.4-12.4); Monocytes Absolute Auto 0.8 X10*3/uL (0.1-1.2); Monocytes Percent Auto 8.2 % (2-11); Neutrophils Absolute Auto 6.9 x10*3/uL (2.0-8.3); Neutrophils Percent Auto 69.1 % (45-73); Platelet Count 248 X10*3/uL (160-400); Red Blood Count 4.72 X10*6/uL (4.60-5.80); Red Cell Distribution Width 15.6 % (11.0-16.0)
[2022-08-09 05:24] LABS: Alanine Aminotransferase 11 U/L (0-40); Albumin Level 3.7 g/dL (3.5-5.0); Alkaline Phosphatase 91 U/L (39-117); Anion Gap 17 (12-20); Aspartate Amino Transferase 15 U/L (5-37); Bilirubin Total 1.2 mg/dL (0.0-1.0); Blood Urea Nitrogen 44 mg/dL (9-16); Calcium 9.2 mg/dL (8.4-10.2); Carbon Dioxide 34 mmol/L (22-29); Chloride 91 mmol/L (96-108); Creatinine Clr Calc Pharmacy 53.2; Estimated Glomerular Filt Rate 31; Glucose Random 182 mg/dL (60-115); Sodium 138 mmol/L (135-145); Total Protein 6.8 g/dL (6.5-8.0)
[2022-08-09 07:20] LABS: Glucose, Whole Blood 205 mg/dL (60-115)
[2022-08-09] MEDS: Cholecalciferol (Vitamin D3) 25 MCG TABLET 50 MCG PO (08:08)
[2022-08-09] MEDS: Cyanocobalamin (Vitamin B-12) 100 MCG TABLET 200 MCG PO (08:08)
[2022-08-09] MEDS: Insulin Lispro 100 UNIT/ML 3 ML VIAL 8 UNIT SUBCUT (08:08)
[2022-08-09] MEDS: Apixaban 5 MG TABLET PO ×2 (08:08→20:15)
[2022-08-09] MEDS: Ascorbic Acid 500 MG TABLET 1000 MG PO ×2 (08:08→20:15)
[2022-08-09] MEDS: allopurinoL 300 MG TABLET PO (08:08)
[2022-08-09] MEDS: Empagliflozin 10 MG TABLET PO (08:08)
[2022-08-09 09:18] LABS: Glucose, Whole Blood 236 mg/dL (60-115)
[2022-08-09] MEDS: cefTRIAXone sodium 1 GM in 0.9 % Sodium Chloride 50 ML IV (09:43)
--- NOTE | 2022-08-09 10:11 | P.PNCA_ITS ---
Subjective Subjective Date of Service: 08/09/22 Principal diagnosis: decompensated congestive heart failure, atrial fibrillation Interval history: Patient states that he is feeling better. Shortness of breath is improved. Leg swelling is difficult to assess but still present. Review of Systems Review of Systems Yes all other systems are reviewed and are negative Constitutional: Reports as per HPI and Reports no additional constitutional complaints Eyes: Reports as per HPI and Denies no additional eye complaints Denies system reviewed and no additional complaints, except as documented and Reports as per HPI Cardiovascular: Reports as per HPI, Reports no additional cardiovascular complaints, Denies acrocyanosis, Denies cool extremities, Denies chest pain, Denies leg edema, Denies lightheadedness, Denies palpitations and Denies dyspnea Respiratory: Reports as per HPI, Denies no additional respiratory complaints and Denies dyspnea Gastrointestinal: Reports as per HPI and Denies no additional gastrointestinal complaints Genitourinary: Reports no additional male genitourinary complaints and Reports as per HPI Musculoskeletal: Reports no additional musculoskeletal complaints and Reports as per HPI Skin/Breast: Reports system reviewed and no additional complaints, except as docu Reports system reviewed and no additional complaints, except as documented and Reports as per HPI Psychiatric: Reports no additional psychiatric complaints and Reports as per HPI Endocrine: Reports no additional endocrine complaints, Reports as per HPI and Denies palpitations Hematologic/Lymphatic: Reports no additional hematologic/lymphatic complaints and Reports as per HPI Allergic/Immunologic: Reports no additional allergic/immunologic complaints and Reports as per HPI Physical Exam Vital Signs: Last Vital Signs Temp 97.1 F 08/09/22 07:38 Pulse 68 08/09/22 07:38 Resp 18 08/09/22 07:38 BP 130/58 L 08/09/22 07:38 Pulse Ox 93 08/09/22 07:38 O2 Del Method Room Air 08/09/22 07:38 O2 Flow Rate 3 08/05/22 15:17 Oxygen Flow Rate 2 08/02/22 16:53 BMI result Body Mass Index 58.2 Const General: comfortable and no acute distress Orientation/consciousness: patient oriented x3 HEENT Other: Unremarkable Head: Yes normal to inspection Neck Neck: Yes normal visual inspection Chest Chest palpation & inspection: normal inspection of the chest Resp Other: Few inspiratory crackles. Cardio Palpation: normal PMI Heart sounds: S1 normal heart sound present, S2 normal heart sound present, no gallops, no murmurs and no rubs GI Palpation (GI): Soft to palpation Back/Spine/Pelvis Other: unremarkable Skin General skin exam: no rashes or lesions noted Neuro General: patient oriented x3 Extrem Other: 2-3+ edema with chronic changes. Psych Mental Status: mental status grossly normal Objective Labs and Meds 08/09/22 04:45 08/09/22 04:45 Lab results: Laboratory Results - last 24 hr 08/08/22 08/08/22 08/08/22 07:40 11:25 16:20 WBC RBC Hgb Hct MCV MCH MCHC RDW Plt Count MPV Immature Gran % (Auto) Neut % (Auto) Lymph % (Auto) [place] % (Auto) Eos % (Auto) Baso % (Auto) Lymph # (Auto) [place] # (Auto) Eos # (Auto) Baso # (Auto) Abs Immat Gran (auto) Absolute Neuts (auto) Absolute Nucleated RBC Nucleated RBC % (auto) Sodium Potassium Chloride Carbon Dioxide Anion Gap BUN Creatinine Estim Creat Clear Calc Estimated GFR POC Glucose 194 H 251 H 105 Random Glucose Calcium Total Bilirubin AST ALT Alkaline Phosphatase Total Protein Albumin 08/08/22 08/09/22 08/09/22 20:30 04:45 04:45 WBC 10.0 RBC 4.72 Hgb 13.0 L Hct 41.9 L MCV 88.8 MCH 27.5 MCHC 31.0 RDW 15.6 Plt Count 248 MPV 10.5 Immature Gran % (Auto) 0.7 H Neut % (Auto) 69.1 Lymph % (Auto) 17.3 L [place] % (Auto) 8.2 Eos % (Auto) 4.1 H Baso % (Auto) 0.6 Lymph # (Auto) 1.7 [place] # (Auto) 0.8 Eos # (Auto) 0.4 Baso # (Auto) 0.1 Abs Immat Gran (auto) 0.07 H Absolute Neuts (auto) 6.9 Absolute Nucleated RBC 0.000 Nucleated RBC % (auto) 0.0 Sodium 138 Potassium 4.0 Chloride 91 L Carbon Dioxide 34 H Anion Gap 17 BUN 44 H Creatinine 2.11 H Estim Creat Clear Calc 53.2 Estimated GFR 31 POC Glucose 255 H Random Glucose 182 H Calcium 9.2 Total Bilirubin 1.2 H AST 15 ALT 11 Alkaline Phosphatase 91 Total Protein 6.8 Albumin 3.7 08/09/22 08/09/22 07:11 09:12 WBC RBC Hgb Hct MCV MCH MCHC RDW Plt Count MPV Immature Gran % (Auto) Neut % (Auto) Lymph % (Auto) [place] % (Auto) Eos % (Auto) Baso % (Auto) Lymph # (Auto) [place] # (Auto) Eos # (Auto) Baso # (Auto) Abs Immat Gran (auto) Absolute Neuts (auto) Absolute Nucleated RBC Nucleated RBC % (auto) Sodium Potassium Chloride Carbon Dioxide Anion Gap BUN Creatinine Estim Creat Clear Calc Estimated GFR POC Glucose 205 H 236 H Random Glucose Calcium Total Bilirubin AST ALT Alkaline Phosphatase Total Protein Albumin Progress Note: A&P Assessment and plan (1) Acute on chronic diastolic (congestive) heart failure: Status: Acute (2) Acute on chronic right heart failure: Status: Acute (3) Morbid obesity: Status: Acute (4) Chronic atrial fibrillation: Status: Acute Plan Overall, biventricular failure but believe more of right ventricular failure th an left. He still has leg edema but more than likely this is all chronic just from the skin changes. Clinically he does look better and feels better. Based on input/output data, he is -15 L or so. We can stop the Lasix drip as well as metolazone. We reviewed the home dose of diuretic and then likely go up on the same. Otherwise, atrial fibrillation self seems controlled. Continue anticoagulation. Discussed with Dr. Kennedy Time Spent With Patient Time: Total time managing care of this patient today 50 minutes. This includes time spent in review of chart, laboratory data, imaging studies, review of telemetry, counseling patient, family, discussion with hospitalist, RN, documentation, coordination of care. Progress Note: Quality Stroke Does the patient have a stroke diagnosis?: No Procedures Date of Service Date of Service: 08/09/22
[2022-08-09] MEDS: Acetaminophen 325 MG TABLET 650 MG PO (10:32)
[2022-08-09 11:16] LABS: Glucose, Whole Blood 194 mg/dL (60-115)
--- NOTE | 2022-08-09 11:30 | PC.NURSE ---
POC of 194, pt has scheduled 16units of lispro for 11:30 coverage and per sliding scale pt gets 2 units of lispro. reached out to MD and MD states to give 8 units of lispro for coverage.
[2022-08-09] MEDS: Insulin Lispro 100 UNIT/ML 3 ML VIAL 16 UNIT SUBCUT (11:38)
[2022-08-09] MEDS: amLODIPine Besylate 5 MG TABLET PO (11:39)
--- NOTE | 2022-08-09 16:45 | P.PNIM_ITS ---
Subjective Subjective Date of Service: 08/10/22 Interval History: being followed for acute congestive heart failure patient is feeling better denies shortness of breath, no PND, no orthopnea complaining of generalized weakness unable to do prior routine activities, felt lightheaded this morning when stood up and also complaining of right-sided frontal headache without visual symptoms no associated weakness or numbness. Review of Systems Review of Systems: Yes all other systems are reviewed and are negative Physical Exam Vital Signs: Vital Signs: Last Vital Signs Temp 97.1 F 08/09/22 16:00 Pulse 74 08/09/22 16:00 Resp 20 08/09/22 16:00 BP 134/68 08/09/22 16:00 Pulse Ox 95 08/09/22 16:00 O2 Del Method Room Air 08/09/22 16:00 O2 Flow Rate 3 08/05/22 15:17 Oxygen Flow Rate 2 08/02/22 16:53 BMI result Body Mass Index 58.2 Const: Other: General patient resting comfortably in no acute distress. Neck supple no JVD. CVS regular rate rhythm, Respiratory lungs clear to auscultation, no respiratory distress, no wheeze, no rhonchi. Gastrointestinal abdomen soft, nontender, bowel sounds audible, no guarding , no rigidity. Extremities bilateral nonpitting edema with chronic venous stasis changes and dermatitis. Neuro non focal , moving all 4 extremity, speech clear. Skin no rash psych appropriate affect Objective Data Active Medications Acetaminophen (Acetaminophen 325 Mg Tablet) 650 mg PO Q6H PRN PRN Reason: Pain, Mild (Pain Scale 1-3) Last Admin: 08/09/22 10:32 Dose: 650 mg Documented By: OMAR Allopurinol (Allopurinol 300 Mg Tablet) 300 mg PO DAILY [facility] Last Admin: 08/09/22 08:08 Dose: 300 mg Documented By: OMAR Amlodipine Besylate (Amlodipine Besylate 5 Mg Tablet) 5 mg PO DAILY@1200 [place]; Protocol Last Admin: 08/09/22 11:39 Dose: 5 mg Documented By: OMAR Apixaban (Apixaban 5 Mg Tablet) 5 mg PO BID [facility] Last Admin: 08/09/22 08:08 Dose: 5 mg Documented By: OMAR Ascorbic Acid (Ascorbic Acid 500 Mg Tablet) 1,000 mg PO BID [facility] Last Admin: 08/09/22 08:08 Dose: 1,000 mg Documented By: OMAR Atorvastatin Calcium (Atorvastatin Calcium 80 Mg Tablet) 80 mg PO BEDTIME [facility] Last Admin: 08/08/22 21:29 Dose: 80 mg Documented By: ZARA Cyanocobalamin (Cyanocobalamin (Vitamin B-12) 100 Mcg Tablet) 200 mcg PO DAILY [facility] Last Admin: 08/09/22 08:08 Dose: 200 mcg Documented By: OMAR Docusate Sodium (Docusate Sodium 100 Mg Capsule) 100 mg PO DAILY PRN PRN Reason: Constipation Empagliflozin (Empagliflozin 10 Mg Tablet) 10 mg PO DAILY [facility] Last Admin: 08/09/22 08:08 Dose: 10 mg Documented By: OMAR Glucose (Glucose Gel 15 Gm Gel..Gram.) 15 gm PO Q15M PRN; Protocol PRN Reason: per Hypoglycemia Standing Ord. Dextrose (D10) 250 mls @ 750 mls/hr IV Q15M PRN; Protocol PRN Reason: per Hypoglycemia Standing Ord. Ceftriaxone Sodium 1 gm/ (Sodium Chloride) 50 mls @ 100 mls/hr IV Q24H [facility] Last Infusion: 08/09/22 10:21 Dose: 0 mls/hr Documented By: OMAR Insulin Glargine (Insulin Glargine,Hum.Rec.Anlog 100 Unit/Ml 10 Ml Vial) 28 unit SUBCUT BEDTIME [facility] Last Admin: 08/08/22 21:31 Dose: 28 unit Documented By: ZARA Insulin Human Lispro (Insulin Lispro 100 Unit/Ml 3 Ml Vial) 16 unit SUBCUT DAILY@1130 [facility] Last Admin: 08/09/22 11:38 Dose: 8 unit Documented By: OMAR Comments: per MD to give 8 units Insulin Human Lispro (Insulin Lispro 100 Unit/Ml 3 Ml Vial) 8 unit SUBCUT DAILY@0730 [facility] Last Admin: 08/09/22 08:08 Dose: 8 unit Documented By: OMAR Insulin Human Lispro (Insulin Lispro 100 Unit/Ml 3 Ml Vial) 20 unit SUBCUT DAILY@1630 [facility] Last Admin: 08/08/22 16:53 Dose: Not Given Documented By: DANIEL Non-Admin Reason: No Insulin Coverage Insulin Human Lispro (Insulin Lispro 100 Unit/Ml 3 Ml Vial) 0 unit SUBCUT QIDACHS [facility]; Protocol Last Admin: 08/09/22 11:31 Dose: Not Given Documented By: OMAR Non-Admin Reason: MD held dose [facility] ( Methenamine Hippurate 1 Gram Tablet) 1 gm PO BID [facility] Last Admin: 08/09/22 08:11 Dose: 1 gm Documented By: OMAR Ondansetron HCl (Ondansetron Hcl 4 Mg/2 Ml Vial) 4 mg IVPUSH Q8H PRN PRN Reason: Nausea and Vomiting Pharmacy Consult (Consult Rx Perform Med Rec) 1 each MISCELLANE ONCE PRN PRN Reason: Consult order Sodium Chloride (0.9 % Sodium Chloride Flush 3 Ml Syringe) 3 ml IVFLUSH QSHIFT [facility] Last Admin: 08/09/22 08:07 Dose: Not Given Documented By: OMAR Non-Admin Reason: IV Running Tamsulosin HCl (Tamsulosin Hcl 0.4 Mg Capsule) 0.4 mg PO BEDTIME [facility] Last Admin: 08/08/22 21:29 Dose: 0.4 mg Documented By: ZARA Vitamin D (Cholecalciferol (Vitamin D3) 25 Mcg Tablet) 50 mcg PO DAILY [facility] Last Admin: 08/09/22 08:08 Dose: 50 mcg Documented By: OMAR Labs 08/09/22 04:45 08/09/22 04:45 Labs: Laboratory Results - last 24 hr 08/08/22 08/08/22 08/09/22 16:20 20:30 04:45 MCV 88.8 MCH 27.5 MCHC 31.0 RDW 15.6 Plt Count 248 MPV 10.5 Immature Gran % (Auto) 0.7 H Neut % (Auto) 69.1 Lymph % (Auto) 17.3 L [place] % (Auto) 8.2 Eos % (Auto) 4.1 H Baso % (Auto) 0.6 Lymph # (Auto) 1.7 [place] # (Auto) 0.8 Eos # (Auto) 0.4 Baso # (Auto) 0.1 Abs Immat Gran (auto) 0.07 H Absolute Neuts (auto) 6.9 Absolute Nucleated RBC 0.000 Nucleated RBC % (auto) 0.0 Anion Gap Estim Creat Clear Calc Estimated GFR POC Glucose 105 255 H Random Glucose Calcium Total Bilirubin AST ALT Alkaline Phosphatase Total Protein Albumin 08/09/22 08/09/22 08/09/22 04:45 07:11 09:12 MCV MCH MCHC RDW Plt Count MPV Immature Gran % (Auto) Neut % (Auto) Lymph % (Auto) [place] % (Auto) Eos % (Auto) Baso % (Auto) Lymph # (Auto) [place] # (Auto) Eos # (Auto) Baso # (Auto) Abs Immat Gran (auto) Absolute Neuts (auto) Absolute Nucleated RBC Nucleated RBC % (auto) Anion Gap 17 Estim Creat Clear Calc 53.2 Estimated GFR 31 POC Glucose 205 H 236 H Random Glucose 182 H Calcium 9.2 Total Bilirubin 1.2 H AST 15 ALT 11 Alkaline Phosphatase 91 Total Protein 6.8 Albumin 3.7 08/09/22 11:05 MCV MCH MCHC RDW Plt Count MPV Immature Gran % (Auto) Neut % (Auto) Lymph % (Auto) [place] % (Auto) Eos % (Auto) Baso % (Auto) Lymph # (Auto) [place] # (Auto) Eos # (Auto) Baso # (Auto) Abs Immat Gran (auto) Absolute Neuts (auto) Absolute Nucleated RBC Nucleated RBC % (auto) Anion Gap Estim Creat Clear Calc Estimated GFR POC Glucose 194 H Random Glucose Calcium Total Bilirubin AST ALT Alkaline Phosphatase Total Protein Albumin Assessment and Plan (1) Acute on chronic right heart failure: Status: Acute Plan 71-year-old male with past medical history of diabetes, hypertension presents to the hospital with shortness of breath found to have pneumonia and evidence of CHF. Responding well to diuresis 1.Community-acquired pneumonia -completed 7 days of antibiotic therapy , stable oxygenation on room air, will DC IV ceftriaxone ?2.Acute CHF exacerbation -good response to Lasix drip10 milligrams/hour, >15Liter neg, denies shortness of breath, no chest pain will DC IV Lasix drip, status post 1 dose of metolazone 5 mg yesterday noted to have slight bump in creatinine, felt lightheaded when stood up, hold diuretics today, follow BMP, follow clinical course. Will resume home dose of diuretics patient not aware of his home medications. 3. Chronic atrial fibrillation - not on rate control medications, continue Eliquis 4.Diabetes II - blood sugars elevated on pre meal insulin and basal insulin , strongly recommend to follow diabetic low-calorie diet 5. generalized weakness patient has been living at home with VNA services x1 month prior to that was at rehab facility, previously was ambulating with walker making his own food but now unable to do so will obtain PT eval for safe discharge. Yisel Full code Requires ongoing hospitalization for monitoring of renal function after receiving intravenous diuretics. need safe discharge plan . Time Spent With Patient Time: Total time managing care of this patient today ____ minutes. Quality Stroke Does the patient have a stroke diagnosis?: No VTE Prior VTE?: No VTE Risk Level:: Medical - moderate - high VTE Device Contraindication: Treatment Not Indicated VTE Drug Contraindication: N/A - Med Ordered
[2022-08-09 17:02] LABS: Glucose, Whole Blood 209 mg/dL (60-115)
[2022-08-09] MEDS: Insulin Lispro 100 UNIT/ML 3 ML VIAL 20 UNIT SUBCUT (17:10)
[2022-08-09] MEDS: 0.9 % Sodium Chloride Flush 3 ML SYRINGE IVFLUSH ×2 (17:10→20:16)
[2022-08-09 19:50] LABS: Glucose, Whole Blood 193 mg/dL (60-115)
[2022-08-09] MEDS: Tamsulosin HCL 0.4 MG CAPSULE PO (20:15)
[2022-08-09] MEDS: Atorvastatin Calcium 80 MG TABLET PO (20:16)
[2022-08-09] MEDS: Insulin Glargine,Hum.rec.anlog 100 UNIT/ML 10 ML VIAL 28 UNIT SUBCUT (20:17)
[2022-08-10] VITALS: BP 132/67; PULSE 73; RESP 20; TEMP 36.3; O2SAT 93
[2022-08-10 04:00] VITALS: BP 145/72; PULSE 70; RESP 20; TEMP 36.2; O2SAT 95
[2022-08-10 05:50] VITALS: BMI 57.4
[2022-08-10 06:39] LABS: Anion Gap 15 (12-20); Blood Urea Nitrogen 53 mg/dL (9-16); Calcium 9.2 mg/dL (8.4-10.2); Carbon Dioxide 37 mmol/L (22-29); Chloride 91 mmol/L (96-108); Creatinine Clr Calc Pharmacy 51.4; Estimated Glomerular Filt Rate 30; Glucose Random 187 mg/dL (60-115); Potassium 3.8 mmol/L (3.3-5.1); Sodium 139 mmol/L (135-145)
[2022-08-10 07:23] LABS: Glucose, Whole Blood 189 mg/dL (60-115)
[2022-08-10 07:47] VITALS: BP 146/67; PULSE 75; RESP 18; TEMP 36.1; O2SAT 96
[2022-08-10] MEDS: Insulin Lispro 100 UNIT/ML 3 ML VIAL 8 UNIT SUBCUT (08:32)
[2022-08-10] MEDS: Cyanocobalamin (Vitamin B-12) 100 MCG TABLET 200 MCG PO (08:33)
[2022-08-10] MEDS: Apixaban 5 MG TABLET PO (08:33)
[2022-08-10] MEDS: Empagliflozin 10 MG TABLET PO (08:33)
[2022-08-10] MEDS: allopurinoL 300 MG TABLET PO (08:33)
[2022-08-10] MEDS: Ascorbic Acid 500 MG TABLET 1000 MG PO (08:33)
[2022-08-10] MEDS: 0.9 % Sodium Chloride Flush 3 ML SYRINGE IVFLUSH (08:33)
[2022-08-10] MEDS: Cholecalciferol (Vitamin D3) 25 MCG TABLET 50 MCG PO (08:33)
[2022-08-10] MEDS: cefTRIAXone sodium 1 GM in 0.9 % Sodium Chloride 50 ML IV (08:37)
--- NOTE | 2022-08-10 10:35 | MHC.CM.PN ---
CM met with Patient and his at bedside. Per Patient, his and MD's request, ELEN has asked PT to work with Patient this morning if at all possible to be sure Patient is able to do the 4 steps needed to enter his home. CM will follow.
[2022-08-10 11:26] VITALS: BP 124/65; PULSE 74; RESP 17; TEMP 36.3; O2SAT 92
[2022-08-10] MEDS: amLODIPine Besylate 5 MG TABLET PO (11:38)
[2022-08-10] MEDS: Docusate Sodium 100 MG CAPSULE PO (11:38)
[2022-08-10] MEDS: Insulin Lispro 100 UNIT/ML 3 ML VIAL 16 UNIT SUBCUT (11:39)
[2022-08-10 12:13] LABS: Glucose, Whole Blood 251 mg/dL (60-115)
[2022-08-10 13:01] VITALS: BP 124/65; PULSE 74; O2SAT 92
--- NOTE | 2022-08-10 14:12 | MHC.CM.PN ---
Patient has been medically cleared for dc to home today with services. Patient is active with [facility], who has been notified of today's dc. Imm addressed with Patient and his this morning at bedside and the original was given to him and a copy has been placed on the chart.
--- NOTE | 2022-08-10 14:22 | PM.DS ---
DS: Providers Provider Date of Service: 08/10/22 Date of admission: 08/02/22 22:38 Primary care physician: Guzman Edouard Consults: 08/02/22 22:32 Consult to Cardiology Routine Consulting Provider: [facility] Services Reason for consultation: CHF recs Has provider been notified: No 08/02/22 22:36 Consult to Infectious Diseases Routine Consulting Provider: Citlali Foley Reason for consultation: Positive UA, hx of ESBL DS: Diagnosis Discharge Diagnosis (1) Acute on chronic right heart failure: Status: Acute DS: Summary Hospital Course Hospital Course: history of presenting illness: Date of Service: 08/02/22 Chief Complaint: SOB ?71-year-old male with past medical history of diabetes, hypertension, CKD, History of ESBL presents the ED with complaints of shortness of breath.? Patient reports that his symptoms initially started in June, worsened over the last 1 week.? He has a cough, nonproductive, unable to clear his mucus, denies fever but has chills, reports no chest pain, no palpitations, no abdominal pain nausea or vomiting, endorses orthopnea and PND, also complains of lower extremity edema that have worsened over the last few weeks.? Reports no diarrhea constipation, no urinary frequency urgency or dysuria.? ?on arrival to the ED patient found to be 90% on room air at rest, placed on 2 L of oxygen satting 96%, respiratory rate of 26, otherwise stable Labs are significant for? WBC count of 10.8, creatinine of 1.51 with a baseline of 1.8, BNP of 131, UA positive for nitrites, leukocyte Estrace, Chest x-ray shows lower airspace opacity concerning for aspiration versus pneumonia, increased right infrahillar? fullness, nonspecific and small left-sided pleural effusion ?patient started on antibiotics? and will be admitted for further management. hospital course: 71-year-old male with past medical history of diabetes, hypertension presents to the hospital with shortness of breath found to have pneumonia and evidence of CHF.? Responding well to diuresis 1.Community-acquired pneumonia -completed 7 days of antibiotic therapy , stable oxygenation on room air, no fevers, right-sided anterior chest wall discomfort with deep breathing, likely pleuritic chest discomfort, recommend to continue incentive spirometry, follow-up with PCP or return to check if noted to have worsening symptoms. ?2.Acute right-sided CHF exacerbation echo showed moderate to severe pulmonary hypertension and elevated right systolic pressure normal EF treated with IV Lasix drip with good response greater than 15 lead L negative no shortness of breath, no orthopnea or PND recommend to take torsemide 40 mg once daily starting tomorrow follow BMP in 1 week and follow-up with Dr. Ann for close outpatient monitoring. 3. Chronic atrial fibrillation - not on rate control medications, continue Eliquis 4.Diabetes II - blood sugars? elevated on pre meal insulin and basal insulin , strongly recommend to follow diabetic low-calorie diet 5. generalized weakness seen by Physical therapy and is being discharged home with VNA and PT services. Time Spent with Patient Time attestation: Total time managing care of this patient today ____ minutes. Discharge coordination time: Greater than 30 minutes Quality: Safe Use of Opioids Does Pt have an Active Cancer Diagnosis on the Problem List?: No Quality: Stroke Does the patient have a stroke diagnosis?: No Physical Exam Vital Signs: Vital Signs: Last Vital Signs Temp 97.3 F 08/10/22 11:26 Pulse 74 08/10/22 13:01 Resp 17 08/10/22 11:26 BP 124/65 08/10/22 13:01 Pulse Ox 92 08/10/22 13:01 O2 Del Method Room Air 08/10/22 11:26 O2 Flow Rate 3 08/05/22 15:17 Oxygen Flow Rate 2 08/02/22 16:53 BMI result Body Mass Index 57.4 Const: Other: General patient resting comfortably in no acute distress.? Neck? supple no JVD. CVS? regular rate rhythm, Anterior chest wall right side, no swelling, no redness or tenderness to palpation, Respiratory lungs clear to auscultation, no respiratory distress, no wheeze, no rhonchi, no crepitus. Gastrointestinal abdomen soft, nontender, bowel sounds audible, no guarding , no rigidity. Extremities? bilateral nonpitting edema with chronic venous stasis changes and dermatitis. Neuro non focal , moving all 4 extremity, speech clear. Skin no rash psych appropriate affect DS: Data Data Completed and Pending Completed studies during hospitalization [Text1]: Procedures Excision of Cecum, Via Natural or Artificial Opening Endoscopic, Diagnostic (05/03/22) Excision of Sigmoid Colon, Via Natural or Artificial Opening Endoscopic, Diagnostic (05/03/22) Insertion of Infusion Device into Right Brachial Vein, Percutaneous Approach (05/03/22) Labs on day of discharge: Laboratory Results - last 24 hr 08/09/22 08/09/22 08/10/22 16:59 19:42 06:01 Sodium 139 Potassium 3.8 Chloride 91 L Carbon Dioxide 37 H Anion Gap 15 BUN 53 H Creatinine 2.17 H Estim Creat Clear Calc 51.4 Estimated GFR 30 POC Glucose 209 H 193 H Random Glucose 187 H Calcium 9.2 08/10/22 08/10/22 07:14 11:23 Sodium Potassium Chloride Carbon Dioxide Anion Gap BUN Creatinine Estim Creat Clear Calc Estimated GFR POC Glucose 189 H 251 H Random Glucose Calcium Discharge Plan Discharge Anticipated Discharge Date/Time: 08/10/22 14:06 Patient Disposition: Home Health Service Discharge Diagnosis: community-acquired pneumonia right-sided heart failure moderate to severe pulmonary hypertension chronic atrial fibrillation Referrals: [facility] [Outside] - 1 Week Guzman Edouard [Primary Care Provider] - 1 Week Discharge Medications: New Jardiance 10 mg Tablet 10 mg PO DAILY Qty: 30 0RF torsemide 40 mg tablet 40 mg PO DAILY Qty: 30 0RF Continued Eliquis 5 mg tablet 5 mg PO BID 30 Days Qty: 60 5RF methenamine hippurate 1 gram Tablet 1 g PO BID tamsulosin 0.4 mg Capsule 0.4 mg PO BEDTIME insulin aspart U-100 [Novolog U-100 Insulin aspart] 100 unit/mL Solution 16 unit SUBCUT DAILY@1130 insulin aspart U-100 [Novolog U-100 Insulin aspart] 100 unit/mL Solution 20 unit SUBCUT DAILY@1630 ascorbic acid (vitamin C) [Vitamin C] 1,000 mg Tablet 1,000 mg PO BID allopurinol 300 mg Tablet 300 mg PO DAILY cholecalciferol (vitamin D3) 50 mcg (2,000 unit) Capsule 50 mcg PO DAILY insulin glargine [Lantus Solostar U-100 Insulin] 100 unit/mL (3 mL) Insulin Pen 28 unit SUBCUT BEDTIME cyanocobalamin (vitamin B-12) 100 mcg Tablet 200 mcg PO DAILY rosuvastatin 40 mg Tablet 20 mg PO BEDTIME insulin aspart U-100 [Novolog U-100 Insulin aspart] 100 unit/mL Solution 8 unit SUBCUT DAILY amlodipine 5 mg Tablet 5 mg PO DAILY@1200 Discontinued torsemide 20 mg Tablet 20 mg PO DAILY Discharge Orders: Discharge Order (Routine); Ordered 08/10/22 Ordered By: Messi Kennedy Diet: Diabetic diet Activity on Discharge: As tolerated Stand Alone Forms: Patient Portal Discharge page Other Ambulatory Orders: Basic Metabolic Panel Fasting (Routine) Timeframe: [id number] Facility: [facility] - Location: Laboratory Ordered By: Messi Kennedy Care Plan Goals: acute congestive heart failure resolved recommend to follow low salt, 1.2 L of fluids, continue compression stockings, low-calorie diabetic diet return to check with worsening shortness of breath, chest discomfort Health Concerns: diabetes mellitus strongly recommend to follow low-calorie diabetic diet strict blood sugar control. Plan of Treatment: follow-up with primary care physician and cardiology Assessment: as above
--- NOTE | 2022-08-10 14:31 | W.MHC.F2F ---
Service Date Service Date: 08/10/22 Encounter Date of encounter: 08/10/22 Reasons for Services Signs and symptoms assessed: shortness of breath, worsening edema, and and diabetic teachings Reason for long term: CV/CP assess and/or care, diabetic teaching and medication management Reason for physical therapy: home safety and mobility Homebound: Leaving the home is medically contraindicated at this time without the asist of a device and/or another person due th the listed conditions above and below. Reason homebound: weakness related to hospital stay Certification: Based on the above findings, I certify that this patient is confined to the home and needs intermittent long term care, physical therapy and/or speech therapy, or continues to need occupational therapy. The patient is under my care, and I have initiated the establishment of the plan of care. The patient will be followed by a physician who will periodically review the plan of care. Time Spent With Patient Time: Total time managing care of this patient today ____ minutes.
== END 2022-08-10 15:52 | disposition home health service (06) | DRG 193 ==
LOC: HO.ED 22:04 → HO.EDOVER 23:02 → HO.IMC 08-03 15:01
PROVIDERS: Hospitalist; Internal Medicine; Physician Assistant; Admitting Provider Internal Medicine; Emergency Provider Emergency Medicine; PCP Internal Medicine; Visit Provider Hospitalist
DX: J18.9 Pneumonia, unspecified organism (principal); I50.33 Acute on chronic diastolic (congestive) heart failure; I48.20 Chronic atrial fibrillation, unspecified; N39.0 Urinary tract infection, site not specified; Z68.43 Body mass index [BMI] 50.0-59.9, adult; I13.0 Hypertensive heart and chronic kidney disease with heart failure and stage 1 through stage 4 chronic kidney disease, or unspecified chronic kidney disease; E66.01 Morbid (severe) obesity due to excess calories; I50.813 Acute on chronic right heart failure; E11.9 Type 2 diabetes mellitus without complications; B96.20 Unspecified Escherichia coli [E. coli] as the cause of diseases classified elsewhere; I27.29 Other secondary pulmonary hypertension; I50.82 Biventricular heart failure; Z20.822 Contact with and (suspected) exposure to COVID-19; Z22.1 Carrier of other intestinal infectious diseases; Z88.0 Allergy status to penicillin; Z79.4 Long term (current) use of insulin; Z79.01 Long term (current) use of anticoagulants; Z79.899 Other long term (current) drug therapy
CPT/HCPCS: 0241U; 36415; 71045; 80048; 80053; 81001; 82947; 83605; 83690; 83735; 83880; 84484; 85025; 85610; 85730; 87040; 87086; 87088; 87186; 93005; 93306; 97116; 97162; 99285; J0456; J0696; J1940; J2185; Q9957

== ENCOUNTER 2022-09-07 11:01 | Inpatient (IN) | payer OTHER, MEDICARE, SELFPAY ==
--- NOTE | ~2022-09-07 | XR_ITS ---
EXAMINATION: XR CHEST CLINICAL INFORMATION: Chest pain COMPARISON: 08/02/2022 TECHNIQUE: 2 views of the chest were obtained. FINDINGS: No significant abnormality is noted involving the heart, lungs, mediastinum, bony thorax or soft tissues. XR/XR chest 2V IMPRESSION: Unremarkable examination. Is elevation of questionable pneumonia. Unremarkable right hilum
[2022-09-07 12:11] VITALS: BP 94/64; PULSE 77; RESP 19; TEMP 36.4; O2SAT 99; BMI 58.6
--- NOTE | 2022-09-07 12:13 | ECG_ITS ---
Test Reason : SOB Blood Pressure : / mmHG Vent. Rate : 084 BPM Atrial Rate : 000 BPM P-R Int : 000 ms QRS Dur : 174 ms QT Int : 430 ms P-R-T Axes : 000 -79 056 degrees QTc Int : 508 ms Atrial fibrillation with premature ventricular or aberrantly conducted complexes Right bundle branch block Left anterior fascicular block Bifascicular block Abnormal ECG When compared with ECG of 02-AUG-2022 18:04, No significant change was found Referred By: Rod Prakash Electronically Signed By:Jerardo Rojas
--- NOTE | 2022-09-07 12:16 | ED.GENADULT ---
HPI - General Adult General Chief complaint: Upper Respiratory Symptoms Stated complaint: SOB Time Seen by Provider: 09/07/22 13:15 Source: patient Mode of arrival: wheelchair Limitations: no limitations History of Present Illness HPI narrative: Patient is a 71 year old assigned male at with a history of CHF, CKD, recent UTI, recent PNA, atrial fib, DM, and HTN presenting to the emergency department today with chills and worsening shortness of breath with exertion and lying flat as well as an all over body rash. Patient states that over the last 4 days he has had worsening shortness of breath with walking and lying flat. Patient states that he has also had chills and after starting jardiance - he has developed an all over body rash. Patient denies any dizziness, lightheadedness, abdominal pain, nausea, vomiting, fever, blurry vision, double vision, loss of vision, chest pain, back pain, night sweats, pain with urination, increased urinary frequency, increased urinary urgency, blood in his urine or stool, syncope or a near syncopal episode, recent trauma or falls, bowel incontinence, bladder incontinence, bowel retention, bladder retention, or any other complaints at this time. Onset (ago): day(s) (4) Severity: mild Relieving factors: none Exacerbating factors: none Associated symptoms: fever/chills and shortness of breath Treatments prior to arrival: none Related Data Home Medications Medication Instructions Recorded Confirmed allopurinol 300 mg tablet 300 mg PO DAILY 11/03/20 09/07/22 ascorbic acid (vitamin C) 1,000 mg 1,000 mg PO BID 11/03/20 09/07/22 tablet (Vitamin C) cholecalciferol (vitamin D3) 50 50 mcg PO DAILY 11/03/20 09/07/22 mcg (2,000 unit) capsule insulin aspart U-100 100 unit/mL 16 unit subcut DAILY@1200 11/03/20 09/07/22 subcutaneous solution (Novolog U-100 Insulin aspart) insulin aspart U-100 100 unit/mL 20 unit subcut DAILY@1630 11/03/20 09/07/22 subcutaneous solution (Novolog U-100 Insulin aspart) methenamine hippurate 1 gram tablet 1 g PO BID 11/03/20 09/07/22 tamsulosin 0.4 mg capsule 0.4 mg PO BEDTIME 11/03/20 09/07/22 cyanocobalamin (vitamin B-12) 100 200 mcg PO DAILY 05/02/22 09/07/22 mcg tablet insulin glargine 100 unit/mL (3 28 unit subcut BEDTIME@2100 05/02/22 09/07/22 mL) subcutaneous pen (Lantus Solostar U-100 Insulin) rosuvastatin 40 mg tablet 40 mg PO BEDTIME 05/02/22 09/07/22 amlodipine 5 mg tablet 5 mg PO DAILY@1200 08/02/22 09/07/22 insulin aspart U-100 100 unit/mL 8 unit subcut DAILY@0800 08/02/22 09/07/22 subcutaneous solution (Novolog U-100 Insulin aspart) ammonium lactate 12 % lotion 1 appl topical DAILY 09/07/22 09/07/22 torsemide 20 mg tablet 20 mg PO DAILY@1200 09/07/22 09/07/22 torsemide 40 mg tablet 40 mg PO DAILY@0900 09/07/22 09/07/22 Previous Rx's Medication Instructions Recorded apixaban 5 mg tablet (Eliquis) 5 mg PO BID 30 days #60 tabs 03/26/20 empagliflozin 10 mg tablet 10 mg PO DAILY #30 tabs 08/10/22 (Jardiance) Allergies Allergy/AdvReac Type Severity Reaction Status Date / Time Penicillins AdvReac Intermediate HALLUCINATIONS, Verified 09/07/22 12:11 SWEATS Review of Systems Constitutional: Constitutional: Reports no additional constitutional complaints, Denies chills, Denies fever(s) and Denies night sweats Eyes: Eyes: Reports no additional eye complaints, Denies blurry vision, Denies change in vision, Denies diplopia, Denies eye discharge, Denies loss of vision and Denies eye pain ENT: Denies dizziness Cardiovascular: Cardiovascular: Reports no additional cardiovascular complaints, Denies chest pain, Denies lightheadedness, Denies Loss of Consciousness, Reports dyspnea and Reports dyspnea on exertion Respiratory: Respiratory: Reports no additional respiratory complaints, Reports dyspnea and Reports dyspnea on exertion Gastrointestinal: Gastrointestinal: Reports no additional gastrointestinal complaints, Denies abdominal pain, Denies melena, Denies hematochezia, Denies change in bowel habits and Denies change in stool character Genitourinary: Genitourinary: Reports no additional male genitourinary complaints, Denies hematuria, Denies oliguria, Denies difficulty urinating, Denies dysuria, Denies urinary frequency, Denies urinary hesitancy, Denies urinary incontinence and Denies urinary urgency Musculoskeletal: Musculoskeletal: Reports no additional musculoskeletal complaints, Denies numbness and Denies tingling Integumentary/Breasts: Skin/Breast: Reports rash Neurologic: Denies dizziness, Denies loss of vision, Denies numbness and Denies tingling Psychiatric: Psychiatric: Reports no additional psychiatric complaints Endocrine: Endocrine: Reports no additional endocrine complaints Hematologic/Lymphatic: Hematologic/Lymphatic: Reports no additional hematologic/lymphatic complaints Allergic/Immunologic: Allergic/Immunologic: Reports no additional allergic/immunologic complaints [facility] Past Medical History Attestation statement: The following information was validated with the patient. Source: old records reviewed and nursing notes reviewed Medical History Chronic atrial fibrillation Clostridioides difficile carrier Diabetes History of ESBL E. coli infection Hypertension Kidney disease Morbid obesity Varicose veins of left lower extremity with inflammation Social History Social History Household Members: Spouse Housing: House Alcohol intake: never Patient Tobacco Use Status: Never used Tobacco Advance Directives Date on File: 05/16/22 service: Yes Current occupational status: retired Physical Exam ED Vital Signs: Vital Signs - 24 hr 09/07/22 12:11 09/07/22 14:54 Temperature 97.6 F Pulse Rate 77 76 Respiratory Rate 19 16 Blood Pressure 94/64 136/66 Pulse Oximetry 99 98 Oxygen Delivery Method Room Air Room Air BMI result Body Mass Index 58.6 Const General: cooperative, alert and awake Nutritional Appearance: obese morbidly obese Orientation/consciousness: patient oriented x3 Limitations: no limitations HENMT Head: Yes normal to inspection and Yes atraumatic Ears: hearing grossly normal bilaterally and external ears normal General nose exam: Normal external nose present, no nasal discharge noted and no epistaxis Face and sinus: Yes normal facial exam, No abrasion and No laceration Mouth: Normal oral and palatal mucosa present, no drooling and no muffled voice Eyes General: appearance normal, both eyes and all related structures Periorbital: periorbital findings normal Eyelids: Yes eyelids normal Conjunctivae: conjunctivae normal Pupils: Equal, round and reactive pupils present EOM: EOMs intact bilaterally Neck Neck: Yes normal visual inspection, Yes full ROM and Yes no lymphadenopathy Chest Chest palpation & inspection: normal inspection of the chest Resp Effort & Inspection: able to speak in complete sentences and labored Auscultation: diminished lung sounds Cardio Rate: regular rate Rhythm: regular rhythm GI Inspection: Yes normal to inspection Neuro General: patient oriented x3 and moves all extremities Cranial nerves: Yes Equal, round and reactive pupils present Cognition (Neuro): normal cognition Motor exam (neuro): 5/5 motor strength present throughout Sensory Exam: Normal double simultaneous stimulation for sensation Coordination: [id number] test normal Extrem Other: bilateral lower extremities have extensive venous stasis dermatitis / chronic skin changes. Puritic rash across trunk and bilateral upper extremities General: Yes full ROM and Yes capillary refill normal Psych Appearance: grossly normal Mental Status: mental status grossly normal Affect: normal affect Attitude: cooperative Thought process: Normal thought process present Thought content: Normal thought content present Insight: Good insight present (Psych) Course Course Course Narrative: 71-year-old male presents for evaluation of shortness of breath. He is notably hypotensive as low as 88/62 in triage. He is afebrile. The patient has chronic venous stasis changes to bilateral lower extremities with slightly increased edema per his report. Lungs are clear to auscultation. Labs including blood cultures, lactic acid ordered. Medications Administered Generic Name Dose Route Start Last Admin Trade Name Freq PRN Reason Stop Dose Admin Apixaban 5 mg 09/07/22 21:00 09/08/22 08:48 Apixaban 5 Mg Tablet PO 5 mg BID DALTON Administration Bumetanide 1 mg 09/07/22 17:00 09/08/22 08:48 Bumetanide 1 Mg/4 Ml Vial IVPUSH 1 mg BID@0900,1700 [facility], [facility]1983 Administration Protocol Insulin Glargine 28 unit 09/07/22 21:00 09/07/22 21:16 Insulin Glargine,Hum.Rec.Anlog 100 Unit/Ml 10 Ml Vial SUBCUT 28 unit BEDTIME DALTON Administration Insulin Human Lispro 0 unit 09/07/22 21:00 09/08/22 08:49 Insulin Lispro 100 Unit/Ml 3 Ml Vial SUBCUT 4 unit QIDACHS FOR[facility], [facility]1983 Administration Protocol Insulin Human Lispro 5 unit 09/07/22 21:00 09/08/22 08:49 Insulin Lispro 100 Unit/Ml 3 Ml Vial SUBCUT 5 unit QIDACHS DALTON Administration Prednisone 40 mg 09/07/22 16:45 09/08/22 08:49 Prednisone 20 Mg Tablet PO 40 mg DAILY DALTON Administration Sodium Chloride 3 ml 09/08/22 00:00 09/08/22 08:50 0.9 % Sodium Chloride Flush 3 Ml Syringe IVFLUSH 3 ml QSHIFT DALTON Administration Discontinued Medications Generic Name Dose Route Start Last Admin Trade Name Dillon PRN Reason Stop Dose Admin Diphenhydramine HCl 25 mg 09/07/22 15:47 09/07/22 16:00 Diphenhydramine Hcl 25 Mg Capsule PO 09/07/22 15:48 25 mg ONCE ONE Administration Ceftriaxone Sodium 2 gm/ 50 mls @ 100 mls/hr 09/07/22 15:47 09/07/22 18:32 Sodium Chloride IV 09/07/22 16:16 Infused ONCE ONE Infusion Medical Decision Making Medical Decision Making MDM Narrative: Patient is a 71 year old assigned male at with a history of CHF, CKD, recent UTI, recent PNA, atrial fib, DM, and HTN presenting to the emergency department today with . Patient's physical exam was as noted in the physical exam portion of this chart. Patient's blood work showed a chronically elevated CR of 2.22, a chronically elevated BUN of 42, a BNP of 138, and a WBC count of 12.8. Patient's urine showed a persistent UTI. Patient's EKG was unremarkable. Patient's chest x-ray showed a possible pneumonia. Patient's clinical presentation is most consistent with CHF exacerbation and persistent UTI. Patient's clinical presentation is not consistent with sepsis (@1600). I spoke with the hospitalist who agreed to admission. I explained my physical exam findings as well as all test results to the patient. I answered all questions asked by the patient. Patient verbalized agreement and understanding with this treatment plan and admission. Differential Diagnosis Differential Diagnoses: The differential diagnosis associated with the presentation includes CHF, drug reaction rash, shortness of breath Admission/Observation Consideration of admission/observation: Escalation of care including admission/observation considered Patient will be admitted. Consult Healthcare Provider Management of the patient was discussed with: Hospitalist (agreed to admission) Lab Data [facility] Lab Attestation statement: I reviewed the patient's lab results. My interpretation of these studies and their corresponding values is that they are grossly normal with the exception of his mildly elevated WBC count and chronic elevated CR/BUN as detailed in the MDM portion of this chart. 09/07/22 13:16 09/07/22 13:16 Labs: Lab Results 09/07/22 09/07/22 09/07/22 Range/Units 13:05 13:16 13:16 WBC 12.8 H (4.8-10.8) X10*3/uL RBC 4.66 (4.60-5.80) X10*6/uL Hgb 12.8 L (14.0-18.0) g/dl Hct 41.5 L (42.0-52.0) % MCV 89.1 (80.0-98.0) fL MCH 27.5 (27.0-33.0) pg MCHC 30.8 L (31.0-36.0) g/dl RDW 16.4 H (11.0-16.0) % Plt Count 251 (160-400) X10*3/uL MPV 10.0 (9.4-12.4) fL Immature Gran % (Auto) 1.4 H (0.0-0.4) % Neut % (Auto) 83.2 H (45-73) % Lymph % (Auto) 7.8 L (20-40) % [place] % (Auto) 5.2 (2-11) % Eos % (Auto) 2.2 (0-4) % Baso % (Auto) 0.2 (0-2) % Lymph # (Auto) 1.0 L (1.2-4.9) X10*3/uL [place] # (Auto) 0.7 (0.1-1.2) X10*3/uL Eos # (Auto) 0.3 (0.0-0.4) X10*3/uL Baso # (Auto) 0.0 (0.0-0.2) X10*3/uL Abs Immat Gran (auto) 0.18 H (0.00-0.03) X10*3/uL Absolute Neuts (auto) 10.6 H (2.0-8.3) x10*3/uL Absolute Nucleated RBC 0.000 (0.0-0.012) X10*3/uL Nucleated RBC % (auto) 0.0 (0.0-0.2) /100WBC Sodium 142 (135-145) mmol/L Potassium 3.9 (3.3-5.1) mmol/L Chloride 103 (96-108) mmol/L Carbon Dioxide 27 (22-29) mmol/L Anion Gap 16 (12-20) BUN 42 H (9-16) mg/dL Creatinine 2.22 H (0.5-1.4) mg/dL Estim Creat Clear Calc 50.9 Estimated GFR 29 Random Glucose 197 H (60-115) mg/dL Lactic Acid (0.5-2.0) mmol/L Calcium 9.2 (8.4-10.2) mg/dL Total Bilirubin 0.8 (0.0-1.0) mg/dL AST 16 (5-37) U/L ALT 11 (0-40) U/L Alkaline Phosphatase 98 (39-117) U/L Troponin I High Sens (<3.5-35.0) ng/L B-Natriuretic Peptide (<100) pg/mL Total Protein 7.4 (6.5-8.0) g/dL Albumin 4.0 (3.5-5.0) g/dL Lipase 24 (8-78) U/L Urine Color Yellow Urine Appearance Cloudy Urine pH 5.5 (5.0-9.0) Ur Specific [place] 1.010 (1.005-1.025) Urine Protein 30 (1+) H (Neg-Trace) mg/dL Urine Glucose (UA) >=1000 H (Negative) mg/dL Urine Ketones Negative (Negative) mg/dL Urine Blood Trace H (Negative) Urine Nitrite Negative (Negative) Ur Leukocyte Esterase Large (3+) H (Negative) Urine RBC 0-2 (0-2) /HPF Urine WBC >50 H (0-5) /HPF Ur Squamous Epith Cells 0-2 (0-2) /HPF Urine Bacteria 4+ (None Seen) Hyaline Casts 3-5 (0-2) /LPF Influenza Type A (PCR) (Negative) Influenza Type B (PCR) (Negative) RSV RNA Qual (PCR) (Negative) SARS-CoV-2 RNA (RT-PCR) (Negative) 06/07/23 06/07/23 06/07/23 Range/Units 13:16 13:16 13:16 WBC (4.8-10.8) X10*3/uL RBC (4.60-5.80) X10*6/uL Hgb (14.0-18.0) g/dl Hct (42.0-52.0) % MCV (80.0-98.0) fL MCH (27.0-33.0) pg MCHC (31.0-36.0) g/dl RDW (11.0-16.0) % Plt Count (160-400) X10*3/uL MPV (9.4-12.4) fL Immature Gran % (Auto) (0.0-0.4) % Neut % (Auto) (45-73) % Lymph % (Auto) (20-40) % [place] % (Auto) (2-11) % Eos % (Auto) (0-4) % Baso % (Auto) (0-2) % Lymph # (Auto) (1.2-4.9) X10*3/uL [place] # (Auto) (0.1-1.2) X10*3/uL Eos # (Auto) (0.0-0.4) X10*3/uL Baso # (Auto) (0.0-0.2) X10*3/uL Abs Immat Gran (auto) (0.00-0.03) X10*3/uL Absolute Neuts (auto) (2.0-8.3) x10*3/uL Absolute Nucleated RBC (0.0-0.012) X10*3/uL Nucleated RBC % (auto) (0.0-0.2) /100WBC Sodium (135-145) mmol/L Potassium (3.3-5.1) mmol/L Chloride (96-108) mmol/L Carbon Dioxide (22-29) mmol/L Anion Gap (12-20) BUN (9-16) mg/dL Creatinine (0.5-1.4) mg/dL Estim Creat Clear Calc Estimated GFR Random Glucose (60-115) mg/dL Lactic Acid 1.3 (0.5-2.0) mmol/L Calcium (8.4-10.2) mg/dL Total Bilirubin (0.0-1.0) mg/dL AST (5-37) U/L ALT (0-40) U/L Alkaline Phosphatase (39-117) U/L Troponin I High Sens 17.3 (<3.5-35.0) ng/L B-Natriuretic Peptide 138 H (<100) pg/mL Total Protein (6.5-8.0) g/dL Albumin (3.5-5.0) g/dL Lipase (8-78) U/L Urine Color Urine Appearance Urine pH (5.0-9.0) Ur Specific [place] (1.005-1.025) Urine Protein (Neg-Trace) mg/dL Urine Glucose (UA) (Negative) mg/dL Urine Ketones (Negative) mg/dL Urine Blood (Negative) Urine Nitrite (Negative) Ur Leukocyte Esterase (Negative) Urine RBC (0-2) /HPF Urine WBC (0-5) /HPF Ur Squamous Epith Cells (0-2) /HPF Urine Bacteria (None Seen) Hyaline Casts (0-2) /LPF Influenza Type A (PCR) (Negative) Influenza Type B (PCR) (Negative) RSV RNA Qual (PCR) (Negative) SARS-CoV-2 RNA (RT-PCR) (Negative) 09/07/22 Range/Units 14:56 WBC (4.8-10.8) X10*3/uL RBC (4.60-5.80) X10*6/uL Hgb (14.0-18.0) g/dl Hct (42.0-52.0) % MCV (80.0-98.0) fL MCH (27.0-33.0) pg MCHC (31.0-36.0) g/dl RDW (11.0-16.0) % Plt Count (160-400) X10*3/uL MPV (9.4-12.4) fL Immature Gran % (Auto) (0.0-0.4) % Neut % (Auto) (45-73) % Lymph % (Auto) (20-40) % [place] % (Auto) (2-11) % Eos % (Auto) (0-4) % Baso % (Auto) (0-2) % Lymph # (Auto) (1.2-4.9) X10*3/uL [place] # (Auto) (0.1-1.2) X10*3/uL Eos # (Auto) (0.0-0.4) X10*3/uL Baso # (Auto) (0.0-0.2) X10*3/uL Abs Immat Gran (auto) (0.00-0.03) X10*3/uL Absolute Neuts (auto) (2.0-8.3) x10*3/uL Absolute Nucleated RBC (0.0-0.012) X10*3/uL Nucleated RBC % (auto) (0.0-0.2) /100WBC Sodium (135-145) mmol/L Potassium (3.3-5.1) mmol/L Chloride (96-108) mmol/L Carbon Dioxide (22-29) mmol/L Anion Gap (12-20) BUN (9-16) mg/dL Creatinine (0.5-1.4) mg/dL Estim Creat Clear Calc Estimated GFR Random Glucose (60-115) mg/dL Lactic Acid (0.5-2.0) mmol/L Calcium (8.4-10.2) mg/dL Total Bilirubin (0.0-1.0) mg/dL AST (5-37) U/L ALT (0-40) U/L Alkaline Phosphatase (39-117) U/L Troponin I High Sens (<3.5-35.0) ng/L B-Natriuretic Peptide (<100) pg/mL Total Protein (6.5-8.0) g/dL Albumin (3.5-5.0) g/dL Lipase (8-78) U/L Urine Color Urine Appearance Urine pH (5.0-9.0) Ur Specific [place] (1.005-1.025) Urine Protein (Neg-Trace) mg/dL Urine Glucose (UA) (Negative) mg/dL Urine Ketones (Negative) mg/dL Urine Blood (Negative) Urine Nitrite (Negative) Ur Leukocyte Esterase (Negative) Urine RBC (0-2) /HPF Urine WBC (0-5) /HPF Ur Squamous Epith Cells (0-2) /HPF Urine Bacteria (None Seen) Hyaline Casts (0-2) /LPF Influenza Type A (PCR) NEGATIVE (Negative) Influenza Type B (PCR) NEGATIVE (Negative) RSV RNA Qual (PCR) NEGATIVE (Negative) SARS-CoV-2 RNA (RT-PCR) NEGATIVE (Negative) Independent Interpretation I performed an independent interpretation of an: EKG and Plain X-Ray Interpretation: Vent. Rate: 084 BPM ? ? Atrial Rate: 000 BPM P-R Int: 000 ms? QRS Dur: 174 ms QT Int: 430 ms ? ? ? P-R-T Axes: 000 -79 056 degrees QTc Int: 508 ms ? Atrial fibrillation with premature ventricular or aberrantly conducted complexes Right bundle branch block Left anterior fascicular block Bifascicular block Abnormal ECG When compared with ECG of 02-AUG-2022 18:04, No significant change was found DD/ [id number] My interpretation is in agreement with the radiologist's impression of this imaging study. EXAMINATION: XR CHEST CLINICAL INFORMATION: Chest pain COMPARISON: 08/02/2022 TECHNIQUE: 2 views of the chest were obtained. FINDINGS: No significant abnormality is noted involving the heart, lungs, mediastinum, bony thorax or soft tissues. XR/XR chest 2V IMPRESSION: Unremarkable examination. Is elevation of questionable pneumonia. Unremarkable right hilum Dictated By: Pinky Kimbrough MD Signed By: Electronically signed by Pinky Kimbrough MD 09/07/22 9999 Chronic Conditions Patient?s care impacted by: Diabetes, Hypertension and Other (CHF) Critical Care Time Critical Care Time Critical Care Time: Yes Total Critical Care Time: 30 Attestation: I spent 30 minutes of Critical Care Time with this patient. This does not include time spent on separately reported billable procedures. Discharge Plan Discharge Clinical Impression: CHF (congestive heart failure), Acute UTI Patient Disposition: Admitted As Inpatient Interventions: Admission Worksheet (ED) Last Done: 09/07/22 19:27 Discharge Date/Time: 09/07/22 19:58
[2022-09-07 13:23] LABS: Appearance Urine Cloudy; Color Urine Yellow; Glucose Urine UA >=1000 mg/dL (Negative); Leukocyte Esterase Urine Large (3+) (Negative); Nitrite Urine Negative (Negative); PH 5.5 (5.0-9.0); UMIC TRIGGER UACC YES; Urine Blood Trace (Negative); Urine Ketones Negative (Negative); Urine Protein 30 (1+) mg/dL (Neg-Trace)
[2022-09-07 13:25] LABS: Bacteria Urine 4+ (None Seen); RBC Urine 0-2 /HPF (0-2); Squamous Epithelial Cell Urine 0-2 /HPF (0-2); UACC Culture Trigger YES; WBC Urine >50 /HPF (0-5)
[2022-09-07 13:30] LABS: MANUAL DIFF FLAG NO
[2022-09-07 13:31] LABS: Basophils Percent Auto 0.2 % (0-2); Eosinophils Absolute Auto 0.3 X10*3/uL (0.0-0.4); Eosinophils Percent Auto 2.2 % (0-4); Hematocrit 41.5 % (42.0-52.0); Hemoglobin 12.8 g/dl (14.0-18.0); Imm Gran Abs Auto 0.18 X10*3/uL (0.00-0.03); Imm Gran Pct Auto 1.4 % (0.0-0.4); Lymphocytes Percent Auto 7.8 % (20-40); Mean Corpuscular HGB Conc 30.8 g/dl (31.0-36.0); Mean Corpuscular Hemoglobin 27.5 pg (27.0-33.0); Mean Corpuscular Volume 89.1 fL (80.0-98.0); Monocytes Absolute Auto 0.7 X10*3/uL (0.1-1.2); Monocytes Percent Auto 5.2 % (2-11); Neutrophils Absolute Auto 10.6 x10*3/uL (2.0-8.3); Neutrophils Percent Auto 83.2 % (45-73); Platelet Count 251 X10*3/uL (160-400); Red Blood Count 4.66 X10*6/uL (4.60-5.80); Red Cell Distribution Width 16.4 % (11.0-16.0); White Blood Count 12.8 X10*3/uL (4.8-10.8)
[2022-09-07 13:45] LABS: Lactic Acid 1.3 mmol/L (0.5-2.0)
[2022-09-07 13:52] LABS: Alanine Aminotransferase 11 U/L (0-40); Alkaline Phosphatase 98 U/L (39-117); Anion Gap 16 (12-20); Aspartate Amino Transferase 16 U/L (5-37); Bilirubin Total 0.8 mg/dL (0.0-1.0); Blood Urea Nitrogen 42 mg/dL (9-16); Calcium 9.2 mg/dL (8.4-10.2); Carbon Dioxide 27 mmol/L (22-29); Chloride 103 mmol/L (96-108); Creatinine Clr Calc Pharmacy 50.9; Estimated Glomerular Filt Rate 29; Glucose Random 197 mg/dL (60-115); Lipase 24 U/L (8-78); Potassium 3.9 mmol/L (3.3-5.1); Sodium 142 mmol/L (135-145); Total Protein 7.4 g/dL (6.5-8.0)
[2022-09-07 13:53] LABS: B Type Natriuretic Peptide 138 pg/mL (<100)
[2022-09-07 13:56] LABS: Troponin-I High Sensitivity 17.3 ng/L (<3.5-35.0)
[2022-09-07 14:54] VITALS: BP 136/66; PULSE 76; RESP 16; O2SAT 98
[2022-09-07 15:50] LABS: Influenza A PCR NEGATIVE (Negative); Influenza B PCR NEGATIVE (Negative); Resp Syncy Virus RNA Qual PCR NEGATIVE (Negative); SARS COV2 PCR INHOUSE NEGATIVE (Negative)
[2022-09-07] MEDS: diphenhydrAMINE HCL 25 MG CAPSULE PO (16:00)
[2022-09-07] MEDS: cefTRIAXone sodium 2 GM in 0.9 % Sodium Chloride 50 ML IV (16:00)
--- NOTE | 2022-09-07 16:45 | PM.IMHP ---
History of Present Illness Date of Service: 09/07/22 Chief Complaint: sob 71M PMH chronic afib, DM, CKD III, HTN, gout, morbid obesity, CKD IV, chronic diastolic and right sided CHF, presented with sob. patient was discharged from [facility] [place] 08/10/22 after hospitalization for pneumonia and chf. he states he was feeling well day ptp, able to ambulate and do stairs without stopping for sob. now on day of presentation patient has singificant increase in sob, worse with mild exertion, positive orthopnea. does not about 10lbs weight gain over past few days. reports chills without fevers. denies dysuria or cough. he does note diffuse pruritic rash recurrence. Review of Systems Review of Systems: Yes all other systems are reviewed and are negative [facility] Medical History Chronic atrial fibrillation Clostridioides difficile carrier Diabetes History of ESBL E. coli infection Hypertension Kidney disease Morbid obesity Varicose veins of left lower extremity with inflammation Social History Household Members: Family Housing: House Do you presently have visiting nurse or other home services: No Alcohol intake: never Patient Tobacco Use Status: Never used Tobacco Smoked in Last 30 Days: No Use of substances other than those prescribed or required for medical reasons: No Advance Directives: Yes Advance Directives on File: Yes Advance Directives Date on File: 05/16/22 service: Yes Current occupational status: retired Meds Allergies Allergy/AdvReac Type Severity Reaction Status Date / Time Penicillins AdvReac Intermediate HALLUCINATIONS, Verified 09/07/22 12:11 SWEATS Active Medications: Current Medications Apixaban (Apixaban 5 Mg Tablet) 5 mg PO BID [facility] Bumetanide (Bumetanide 1 Mg/4 Ml Vial) 1 mg IVPUSH BID@0900,1700 [facility]; Protocol Glucose (Glucose Gel 15 Gm Gel..Gram.) 15 gm PO Q15M PRN; Protocol PRN Reason: per Hypoglycemia Standing Ord. Hydrocortisone (Hydrocortisone 1 % Cream 28.35 Gm Tube) 1 appl TOPICAL BID PRN; Protocol PRN Reason: puririts Dextrose (D10) 250 mls @ 750 mls/hr IV Q15M PRN; Protocol PRN Reason: per Hypoglycemia Standing Ord. Ceftriaxone Sodium 1 gm/ (Sodium Chloride) 50 mls @ 100 mls/hr IV Q24H [facility] Insulin Glargine (Insulin Glargine,Hum.Rec.Anlog 100 Unit/Ml 10 Ml Vial) 28 unit SUBCUT BEDTIME [facility] Insulin Human Lispro (Insulin Lispro 100 Unit/Ml 3 Ml Vial) 0 unit SUBCUT QIDACHS [facility]; Protocol Insulin Human Lispro (Insulin Lispro 100 Unit/Ml 3 Ml Vial) 5 unit SUBCUT QIDACHS [facility] Pharmacy Consult (Consult Rx Perform Med Rec) 1 each MISCELLANE ONCE PRN PRN Reason: Consult order Prednisone (Prednisone 20 Mg Tablet) 40 mg PO DAILY [facility] Home Medications Medication Instructions Recorded Confirmed Last Taken Type allopurinol 300 mg tablet 300 mg PO DAILY 11/03/20 08/02/22 08/02/22 History ascorbic acid (vitamin C) 1,000 mg 1,000 mg PO BID 11/03/20 08/02/22 08/02/22 History tablet (Vitamin C) cholecalciferol (vitamin D3) 50 50 mcg PO DAILY 11/03/20 08/02/22 08/02/22 History mcg (2,000 unit) capsule insulin aspart U-100 100 unit/mL 16 unit subcut DAILY@1130 11/03/20 08/02/22 08/02/22 History subcutaneous solution (Novolog U-100 Insulin aspart) insulin aspart U-100 100 unit/mL 20 unit subcut DAILY@1630 11/03/20 08/02/22 08/01/22 History subcutaneous solution (Novolog U-100 Insulin aspart) methenamine hippurate 1 gram tablet 1 g PO BID 11/03/20 08/02/22 08/02/22 History tamsulosin 0.4 mg capsule 0.4 mg PO BEDTIME 11/03/20 08/02/22 08/01/22 History cyanocobalamin (vitamin B-12) 100 200 mcg PO DAILY 05/02/22 08/02/22 08/02/22 History mcg tablet insulin glargine 100 unit/mL (3 28 unit subcut BEDTIME 05/02/22 08/02/22 08/01/22 History mL) subcutaneous pen (Lantus Solostar U-100 Insulin) rosuvastatin 40 mg tablet 20 mg PO BEDTIME 05/02/22 08/02/22 08/01/22 History amlodipine 5 mg tablet 5 mg PO DAILY@1200 08/02/22 08/02/22 08/02/22 History insulin aspart U-100 100 unit/mL 8 unit subcut DAILY 08/02/22 08/02/22 08/02/22 History subcutaneous solution (Novolog U-100 Insulin aspart) Physical Exam Vital Signs and Narrative: Vital Signs: Last Vital Signs Temp 97.6 F 09/07/22 12:11 Pulse 76 09/07/22 14:54 Resp 16 09/07/22 14:54 BP 136/66 09/07/22 14:54 Pulse Ox 98 09/07/22 14:54 O2 Del Method Room Air 09/07/22 14:54 BMI result Body Mass Index 58.6 General: AO X 3, sob Resp: CTA bilateral, accessory muscles used CVS: S1,S2,RRR, 4+ bilateral edema with skin changes GI: soft, non tender, non distended Neuro: motor grossly intact, alert Psych: appropriate affect, appropriate insight skin: diffuse excoriated rash Results Labs 09/07/22 13:16 09/07/22 13:16 Labs: Laboratory Results - last 24 hr 09/07/22 09/07/22 09/07/22 13:05 13:16 13:16 MCV 89.1 MCH 27.5 MCHC 30.8 L RDW 16.4 H Plt Count 251 MPV 10.0 Immature Gran % (Auto) 1.4 H Neut % (Auto) 83.2 H Lymph % (Auto) 7.8 L [place] % (Auto) 5.2 Eos % (Auto) 2.2 Baso % (Auto) 0.2 Lymph # (Auto) 1.0 L [place] # (Auto) 0.7 Eos # (Auto) 0.3 Baso # (Auto) 0.0 Abs Immat Gran (auto) 0.18 H Absolute Neuts (auto) 10.6 H Absolute Nucleated RBC 0.000 Nucleated RBC % (auto) 0.0 Anion Gap 16 Estim Creat Clear Calc 50.9 Estimated GFR 29 Random Glucose 197 H Lactic Acid Calcium 9.2 Total Bilirubin 0.8 AST 16 ALT 11 Alkaline Phosphatase 98 Troponin I High Sens B-Natriuretic Peptide Total Protein 7.4 Albumin 4.0 Lipase 24 Urine Color Yellow Urine Appearance Cloudy Urine pH 5.5 Ur Specific [place] 1.010 Urine Protein 30 (1+) H Urine Glucose (UA) >=1000 H Urine Ketones Negative Urine Blood Trace H Urine Nitrite Negative Ur Leukocyte Esterase Large (3+) H Urine RBC 0-2 Urine WBC >50 H Ur Squamous Epith Cells 0-2 Urine Bacteria 4+ Hyaline Casts 3-5 Influenza Type A (PCR) Influenza Type B (PCR) RSV RNA Qual (PCR) SARS-CoV-2 RNA (RT-PCR) 09/07/22 09/07/22 09/07/22 13:16 13:16 13:16 MCV MCH MCHC RDW Plt Count MPV Immature Gran % (Auto) Neut % (Auto) Lymph % (Auto) [place] % (Auto) Eos % (Auto) Baso % (Auto) Lymph # (Auto) [place] # (Auto) Eos # (Auto) Baso # (Auto) Abs Immat Gran (auto) Absolute Neuts (auto) Absolute Nucleated RBC Nucleated RBC % (auto) Anion Gap Estim Creat Clear Calc Estimated GFR Random Glucose Lactic Acid 1.3 Calcium Total Bilirubin AST ALT Alkaline Phosphatase Troponin I High Sens 17.3 B-Natriuretic Peptide 138 H Total Protein Albumin Lipase Urine Color Urine Appearance Urine pH Ur Specific [place] Urine Protein Urine Glucose (UA) Urine Ketones Urine Blood Urine Nitrite Ur Leukocyte Esterase Urine RBC Urine WBC Ur Squamous Epith Cells Urine Bacteria Hyaline Casts Influenza Type A (PCR) Influenza Type B (PCR) RSV RNA Qual (PCR) SARS-CoV-2 RNA (RT-PCR) 09/07/22 14:56 MCV MCH MCHC RDW Plt Count MPV Immature Gran % (Auto) Neut % (Auto) Lymph % (Auto) [place] % (Auto) Eos % (Auto) Baso % (Auto) Lymph # (Auto) [place] # (Auto) Eos # (Auto) Baso # (Auto) Abs Immat Gran (auto) Absolute Neuts (auto) Absolute Nucleated RBC Nucleated RBC % (auto) Anion Gap Estim Creat Clear Calc Estimated GFR Random Glucose Lactic Acid Calcium Total Bilirubin AST ALT Alkaline Phosphatase Troponin I High Sens B-Natriuretic Peptide Total Protein Albumin Lipase Urine Color Urine Appearance Urine pH Ur Specific [place] Urine Protein Urine Glucose (UA) Urine Ketones Urine Blood Urine Nitrite Ur Leukocyte Esterase Urine RBC Urine WBC Ur Squamous Epith Cells Urine Bacteria Hyaline Casts Influenza Type A (PCR) NEGATIVE Influenza Type B (PCR) NEGATIVE RSV RNA Qual (PCR) NEGATIVE SARS-CoV-2 RNA (RT-PCR) NEGATIVE Imaging Radiologist's Impressions: Impressions Chest X-Ray 09/07/22 12:25 IMPRESSION: Unremarkable examination. Is elevation of questionable pneumonia. Unremarkable right hilum Assessment and Plan (1) CHF (congestive heart failure): Status: Acute Plan 71M PMH chronic afib, DM, CKD III, HTN, gout, morbid obesity, CKD IV, chronic diastolic and right sided CHF, presented with sob. acute on chronic diastolic and right sided chf iv bumex, monitor is and os, bmp diffuse rash prednisone, topical steroids, positive ua uti vs asypmtomatic bacturia given chills will treat with rocephin, follow up cultures morbid obesity weight loss recommended DM insulin CKD IV stable, monitor chronic afib eliquis dvt prophylaxis - eliquis full code patient with significant resp distress and volume overload at risk for further decompensation due to CKD IV and morbid obesity therefore, will require atleast 2 midnights inpatient Time Spent With Patient Time: Total time managing care of this patient today ____ minutes. Quality Stroke Does the patient have a stroke diagnosis?: No VTE Prior VTE?: No VTE Risk Level:: Medical - moderate - high VTE Device Contraindication: Treatment Not Indicated VTE Drug Contraindication: N/A - Med Ordered
--- NOTE | 2022-09-07 18:20 | PHA.MEDREC ---
Pharmacy Consult ? Medication Reconciliation Pharmacy has completed the medication reconciliation. spoke with patient. He had his own medication list from home and also [facility] Used both to complete med rec.
[2022-09-07] MEDS: Bumetanide 1 MG/4 ML VIAL IVPUSH (18:31)
[2022-09-07] MEDS: predniSONE 20 MG TABLET 40 MG PO (18:31)
[2022-09-07 18:34] VITALS: BP 154/74; PULSE 78; PULSE 82; RESP 19; TEMP 36.4; O2SAT 96; O2SAT 97
[2022-09-07 20:00] VITALS: BP 135/75; PULSE 87; RESP 20; TEMP 36.2; O2SAT 94
[2022-09-07 20:25] LABS: Glucose, Whole Blood 230 mg/dL (60-115)
[2022-09-07] MEDS: Insulin Lispro 100 UNIT/ML 3 ML VIAL SUBCUT ×2 (21:15)
[2022-09-07] MEDS: Insulin Glargine,Hum.rec.anlog 100 UNIT/ML 10 ML VIAL 28 UNIT SUBCUT (21:16)
[2022-09-07] MEDS: 0.9 % Sodium Chloride Flush 3 ML SYRINGE IVFLUSH (21:16)
[2022-09-07] MEDS: Apixaban 5 MG TABLET PO (21:16)
[2022-09-07 23:19] VITALS: BP 138/58; PULSE 78; RESP 18; TEMP 36.4; O2SAT 96
[2022-09-07 23:32] VITALS: PULSE 95; O2SAT 97
[2022-09-08] VITALS (10 sets, daily range): BP systolic 129–143; BP diastolic 65–78; PULSE 66–96; RESP 15–20; TEMP 35.9–36.7; O2SAT 97–99
[2022-09-08 06:57] LABS: Hematocrit 38.9 % (42.0-52.0); Hemoglobin 11.9 g/dl (14.0-18.0); Mean Corpuscular HGB Conc 30.6 g/dl (31.0-36.0); Mean Corpuscular Hemoglobin 27.4 pg (27.0-33.0); Mean Corpuscular Volume 89.4 fL (80.0-98.0); Mean Platelet Volume 10.4 fL (9.4-12.4); Platelet Count 232 X10*3/uL (160-400); Red Blood Count 4.35 X10*6/uL (4.60-5.80); Red Cell Distribution Width 15.9 % (11.0-16.0); White Blood Count 9.5 X10*3/uL (4.8-10.8)
[2022-09-08 07:12] LABS: Glucose, Whole Blood 202 mg/dL (60-115)
[2022-09-08 07:17] LABS: Anion Gap 16 (12-20); Blood Urea Nitrogen 41 mg/dL (9-16); Calcium 8.6 mg/dL (8.4-10.2); Carbon Dioxide 25 mmol/L (22-29); Chloride 104 mmol/L (96-108); Creatinine Clr Calc Pharmacy 59.1; Estimated Glomerular Filt Rate 35; Glucose Fasting 194 mg/dL (60-99); Magnesium 2.5 mg/dL (1.6-2.6); Potassium 4.4 mmol/L (3.3-5.1); Sodium 141 mmol/L (135-145)
[2022-09-08] MEDS: Bumetanide 1 MG/4 ML VIAL IVPUSH ×2 (08:48→16:20)
[2022-09-08] MEDS: Apixaban 5 MG TABLET PO ×2 (08:48→21:21)
[2022-09-08] MEDS: Insulin Lispro 100 UNIT/ML 3 ML VIAL SUBCUT ×8 (08:49→21:22)
[2022-09-08] MEDS: predniSONE 20 MG TABLET 40 MG PO (08:49)
[2022-09-08] MEDS: 0.9 % Sodium Chloride Flush 3 ML SYRINGE IVFLUSH ×3 (08:50→21:23)
[2022-09-08] MEDS: allopurinoL 300 MG TABLET PO (10:41)
[2022-09-08] MEDS: Hydrocortisone 1 % Cream 28.35 GM TUBE 1 APPL TOPICAL (10:41)
[2022-09-08] MEDS: polyethylene glycoL 3350 17 GM POWD.PACK PO (10:41)
[2022-09-08] MEDS: Empagliflozin 10 MG TABLET PO (10:41)
--- NOTE | 2022-09-08 10:52 | MHC.CM.PN ---
IMM 09/08/22. Pt admitted with CHF. Pt lives at home with his , has comfort plus VNA, and uses a walker, crutches, and a bipap machine (from [facility]). D/C plan pending further workup, but goal is to return home with previous comfort plus VNA. Pts to transport. HCP on file and verified. PCP: Guzman Villarreal vax: x esther
[2022-09-08 11:16] LABS: Glucose, Whole Blood 215 mg/dL (60-115)
[2022-09-08] MEDS: amLODIPine Besylate 5 MG TABLET PO (11:39)
--- NOTE | 2022-09-08 11:51 | P.PNIM_ITS ---
Subjective Subjective Date of Service: 09/08/22 Interval History: sob on exertion Physical Exam Vital Signs: Vital Signs: Last Vital Signs Temp 96.7 F L 09/08/22 11:32 Pulse 66 09/08/22 11:32 Resp 20 09/08/22 11:32 BP 139/68 09/08/22 11:32 Pulse Ox 99 09/08/22 11:32 O2 Del Method Room Air 09/08/22 11:32 BMI result Body Mass Index 58.6 General: AO X 3, s ob Resp:? CTA bila teral,? accessory muscles used CVS: S1,S2,RRR, 4+ bila teral edema with s kin changes GI: so ft, non tender, no n distended Neuro: ? motor grossly in tact, alert Psych: appropriate affec t, appropriate ins ight? skin: diffus e excoriated rash Objective Data Active Medications Allopurinol (Allopurinol 300 Mg Tablet) 300 mg PO DAILY [facility] Last Admin: 09/08/22 10:41 Dose: 300 mg Documented By: JESUS MANUEL Amlodipine Besylate (Amlodipine Besylate 5 Mg Tablet) 5 mg PO DAILY@1200 [facility]; Protocol Last Admin: 09/08/22 11:39 Dose: 5 mg Documented By: JESUS MANUEL Apixaban (Apixaban 5 Mg Tablet) 5 mg PO BID [facility] Last Admin: 09/08/22 08:48 Dose: 5 mg Documented By: CARLITO Atorvastatin Calcium (Atorvastatin Calcium 80 Mg Tablet) 80 mg PO BEDTIME [facility] Bumetanide (Bumetanide 1 Mg/4 Ml Vial) 1 mg IVPUSH BID@0900,1700 [facility]; Protocol Last Admin: 09/08/22 08:48 Dose: 1 mg Documented By: CARLITO Empagliflozin (Empagliflozin 10 Mg Tablet) 10 mg PO DAILY [facility] Last Admin: 09/08/22 10:41 Dose: 10 mg Documented By: JESUS MANUEL Glucose (Glucose Gel 15 Gm Gel..Gram.) 15 gm PO Q15M PRN; Protocol PRN Reason: per Hypoglycemia Standing Ord. Hydrocortisone (Hydrocortisone 1 % Cream 28.35 Gm Tube) 1 appl TOPICAL BID PRN; Protocol PRN Reason: puririts Last Admin: 09/08/22 10:41 Dose: 1 appl Documented By: HO.LESSARL Dextrose (D10) 250 mls @ 750 mls/hr IV Q15M PRN; Protocol PRN Reason: per Hypoglycemia Standing Ord. Ceftriaxone Sodium 1 gm/ (Sodium Chloride) 50 mls @ 100 mls/hr IV Q24H [facility] Insulin Glargine (Insulin Glargine,Hum.Rec.Anlog 100 Unit/Ml 10 Ml Vial) 28 unit SUBCUT BEDTIME [facility] Last Admin: 09/07/22 21:16 Dose: 28 unit Documented By: RICHARD Insulin Human Lispro (Insulin Lispro 100 Unit/Ml 3 Ml Vial) 0 unit SUBCUT QIDACHS [facility]; Protocol Last Admin: 09/08/22 11:37 Dose: 4 unit Documented By: JESUS MANUEL Insulin Human Lispro (Insulin Lispro 100 Unit/Ml 3 Ml Vial) 5 unit SUBCUT QIDACHS [facility] Last Admin: 09/08/22 11:37 Dose: 5 unit Documented By: JESUS MANUEL Pharmacy Consult (Consult Rx Perform Med Rec) 1 each MISCELLANE ONCE PRN PRN Reason: Consult order Prednisone (Prednisone 20 Mg Tablet) 40 mg PO DAILY [facility] Last Admin: 09/08/22 08:49 Dose: 40 mg Documented By: CARLITO Sodium Chloride (0.9 % Sodium Chloride Flush 3 Ml Syringe) 3 ml IVFLUSH QSHIFT [facility] Last Admin: 09/08/22 08:50 Dose: 3 ml Documented By: CARLITO Tamsulosin HCl (Tamsulosin Hcl 0.4 Mg Capsule) 0.4 mg PO BEDTIME [facility] Zinc Oxide (Zinc Oxide (Triple Paste) 56.7 Gm Oint) 1 appl TOPICAL QID PRN; Protocol PRN Reason: Diaper Rash Labs 09/08/22 06:21 09/08/22 06:21 Labs: Laboratory Results - last 24 hr 09/07/22 09/07/22 09/07/22 13:05 13:16 13:16 MCV 89.1 MCH 27.5 MCHC 30.8 L RDW 16.4 H Plt Count 251 MPV 10.0 Immature Gran % (Auto) 1.4 H Neut % (Auto) 83.2 H Lymph % (Auto) 7.8 L [place] % (Auto) 5.2 Eos % (Auto) 2.2 Baso % (Auto) 0.2 Lymph # (Auto) 1.0 L [place] # (Auto) 0.7 Eos # (Auto) 0.3 Baso # (Auto) 0.0 Abs Immat Gran (auto) 0.18 H Absolute Neuts (auto) 10.6 H Absolute Nucleated RBC 0.000 Nucleated RBC % (auto) 0.0 Anion Gap 16 Estim Creat Clear Calc 50.9 Estimated GFR 29 POC Glucose Random Glucose 197 H Fasting Glucose Lactic Acid Calcium 9.2 Magnesium Total Bilirubin 0.8 AST 16 ALT 11 Alkaline Phosphatase 98 Troponin I High Sens B-Natriuretic Peptide Total Protein 7.4 Albumin 4.0 Lipase 24 Urine Color Yellow Urine Appearance Cloudy Urine pH 5.5 Ur Specific [place] 1.010 Urine Protein 30 (1+) H Urine Glucose (UA) >=1000 H Urine Ketones Negative Urine Blood Trace H Urine Nitrite Negative Ur Leukocyte Esterase Large (3+) H Urine RBC 0-2 Urine WBC >50 H Ur Squamous Epith Cells 0-2 Urine Bacteria 4+ Hyaline Casts 3-5 Influenza Type A (PCR) Influenza Type B (PCR) RSV RNA Qual (PCR) SARS-CoV-2 RNA (RT-PCR) 09/07/22 09/07/22 09/07/22 13:16 13:16 13:16 MCV MCH MCHC RDW Plt Count MPV Immature Gran % (Auto) Neut % (Auto) Lymph % (Auto) [place] % (Auto) Eos % (Auto) Baso % (Auto) Lymph # (Auto) [place] # (Auto) Eos # (Auto) Baso # (Auto) Abs Immat Gran (auto) Absolute Neuts (auto) Absolute Nucleated RBC Nucleated RBC % (auto) Anion Gap Estim Creat Clear Calc Estimated GFR POC Glucose Random Glucose Fasting Glucose Lactic Acid 1.3 Calcium Magnesium Total Bilirubin AST ALT Alkaline Phosphatase Troponin I High Sens 17.3 B-Natriuretic Peptide 138 H Total Protein Albumin Lipase Urine Color Urine Appearance Urine pH Ur Specific [place] Urine Protein Urine Glucose (UA) Urine Ketones Urine Blood Urine Nitrite Ur Leukocyte Esterase Urine RBC Urine WBC Ur Squamous Epith Cells Urine Bacteria Hyaline Casts Influenza Type A (PCR) Influenza Type B (PCR) RSV RNA Qual (PCR) SARS-CoV-2 RNA (RT-PCR) 09/07/22 09/07/22 09/08/22 14:56 20:07 06:21 MCV 89.4 MCH 27.4 MCHC 30.6 L RDW 15.9 Plt Count 232 MPV 10.4 Immature Gran % (Auto) Neut % (Auto) Lymph % (Auto) [place] % (Auto) Eos % (Auto) Baso % (Auto) Lymph # (Auto) [place] # (Auto) Eos # (Auto) Baso # (Auto) Abs Immat Gran (auto) Absolute Neuts (auto) Absolute Nucleated RBC 0.000 Nucleated RBC % (auto) 0.0 Anion Gap Estim Creat Clear Calc Estimated GFR POC Glucose 230 H Random Glucose Fasting Glucose Lactic Acid Calcium Magnesium Total Bilirubin AST ALT Alkaline Phosphatase Troponin I High Sens B-Natriuretic Peptide Total Protein Albumin Lipase Urine Color Urine Appearance Urine pH Ur Specific [place] Urine Protein Urine Glucose (UA) Urine Ketones Urine Blood Urine Nitrite Ur Leukocyte Esterase Urine RBC Urine WBC Ur Squamous Epith Cells Urine Bacteria Hyaline Casts Influenza Type A (PCR) NEGATIVE Influenza Type B (PCR) NEGATIVE RSV RNA Qual (PCR) NEGATIVE SARS-CoV-2 RNA (RT-PCR) NEGATIVE 09/08/22 09/08/22 09/08/22 06:21 07:07 11:12 MCV MCH MCHC RDW Plt Count MPV Immature Gran % (Auto) Neut % (Auto) Lymph % (Auto) [place] % (Auto) Eos % (Auto) Baso % (Auto) Lymph # (Auto) [place] # (Auto) Eos # (Auto) Baso # (Auto) Abs Immat Gran (auto) Absolute Neuts (auto) Absolute Nucleated RBC Nucleated RBC % (auto) Anion Gap 16 Estim Creat Clear Calc 59.1 Estimated GFR 35 POC Glucose 202 H 215 H Random Glucose Fasting Glucose 194 H Lactic Acid Calcium 8.6 D Magnesium 2.5 Total Bilirubin AST ALT Alkaline Phosphatase Troponin I High Sens B-Natriuretic Peptide Total Protein Albumin Lipase Urine Color Urine Appearance Urine pH Ur Specific [place] Urine Protein Urine Glucose (UA) Urine Ketones Urine Blood Urine Nitrite Ur Leukocyte Esterase Urine RBC Urine WBC Ur Squamous Epith Cells Urine Bacteria Hyaline Casts Influenza Type A (PCR) Influenza Type B (PCR) RSV RNA Qual (PCR) SARS-CoV-2 RNA (RT-PCR) Assessment and Plan (1) CHF (congestive heart failure): Status: Acute Plan 71M PMH chronic afib, DM, CKD III, HTN, gout, morbid obesity, CKD IV, chronic diastolic and right sided CHF, presented with sob. acute on chronic diastolic and right sided chf iv bumex, monitor is and os, bmp diffuse rash prednisone, topical steroids positive ua uti vs asypmtomatic bacturia given chills will treat with rocephin, follow up cultures morbid obesity weight loss recommended DM insulin CKD IV stable, monitor chronic afib eliquis dvt prophylaxis - eliquis full code reason for continued hospitalization:diuresisng iv Time Spent With Patient Time: Total time managing care of this patient today ____ minutes. Quality Stroke Does the patient have a stroke diagnosis?: No VTE Prior VTE?: No VTE Risk Level:: Medical - moderate - high VTE Device Contraindication: Treatment Not Indicated VTE Drug Contraindication: N/A - Med Ordered
[2022-09-08 16:11] LABS: Glucose, Whole Blood 250 mg/dL (60-115)
[2022-09-08] MEDS: cefTRIAXone sodium 1 GM in 0.9 % Sodium Chloride 50 ML IV (16:19)
[2022-09-08 20:01] LABS: Glucose, Whole Blood 282 mg/dL (60-115)
[2022-09-08] MEDS: Atorvastatin Calcium 80 MG TABLET PO (21:21)
[2022-09-08] MEDS: Tamsulosin HCL 0.4 MG CAPSULE PO (21:21)
[2022-09-08] MEDS: Insulin Glargine,Hum.rec.anlog 100 UNIT/ML 10 ML VIAL 28 UNIT SUBCUT (21:21)
[2022-09-09] VITALS (7 sets, daily range): BP systolic 132–171; BP diastolic 62–74; PULSE 60–82; RESP 14–18; TEMP 35.8–36.7; O2SAT 96–100
[2022-09-09] MEDS: Zinc Oxide (Triple Paste) 56.7 GM OINT 1 APPL TOPICAL (00:08)
[2022-09-09 06:32] LABS: Hematocrit 38.3 % (42.0-52.0); Hemoglobin 11.6 g/dl (14.0-18.0); Mean Corpuscular HGB Conc 30.3 g/dl (31.0-36.0); Mean Corpuscular Hemoglobin 27.1 pg (27.0-33.0); Mean Corpuscular Volume 89.5 fL (80.0-98.0); Mean Platelet Volume 10.3 fL (9.4-12.4); Platelet Count 231 X10*3/uL (160-400); Red Blood Count 4.28 X10*6/uL (4.60-5.80); Red Cell Distribution Width 16.1 % (11.0-16.0); White Blood Count 9.9 X10*3/uL (4.8-10.8)
--- NOTE | 2022-09-09 06:55 | PC.NURSE ---
Pt had 8 beats of Vtach, asymptomatic, BP 132/62, HR 62 . MD notified , no new orders.
[2022-09-09 06:58] LABS: Anion Gap 14 (12-20); Blood Urea Nitrogen 48 mg/dL (9-16); Calcium 8.5 mg/dL (8.4-10.2); Carbon Dioxide 28 mmol/L (22-29); Chloride 102 mmol/L (96-108); Creatinine Clr Calc Pharmacy 63.1; Estimated Glomerular Filt Rate 38; Glucose Fasting 188 mg/dL (60-99); Sodium 140 mmol/L (135-145)
[2022-09-09 07:42] LABS: Glucose, Whole Blood 182 mg/dL (60-115)
[2022-09-09] MEDS: allopurinoL 300 MG TABLET PO (08:06)
[2022-09-09] MEDS: Insulin Lispro 100 UNIT/ML 3 ML VIAL SUBCUT ×8 (08:07→21:18)
[2022-09-09] MEDS: Empagliflozin 10 MG TABLET PO (08:07)
[2022-09-09] MEDS: predniSONE 20 MG TABLET 40 MG PO (08:07)
[2022-09-09] MEDS: Apixaban 5 MG TABLET PO ×2 (08:07→21:16)
[2022-09-09] MEDS: Bumetanide 1 MG/4 ML VIAL IVPUSH ×2 (08:07→16:03)
[2022-09-09] MEDS: 0.9 % Sodium Chloride Flush 3 ML SYRINGE IVFLUSH ×3 (08:08→21:18)
--- NOTE | 2022-09-09 09:12 | P.PNIM_ITS ---
Subjective Subjective Date of Service: 09/09/22 Interval History: rash improved Physical Exam Vital Signs: Vital Signs: Last Vital Signs Temp 97.1 F 09/09/22 08:57 Pulse 64 09/09/22 08:57 Resp 14 09/09/22 08:57 BP 144/64 H 09/09/22 08:57 Pulse Ox 98 09/09/22 08:57 O2 Del Method Room Air 09/09/22 08:57 BMI result Body Mass Index 58.6 General: AO X 3, s ob Resp:? CTA bila teral,? accessory muscles used CVS: S1,S2,RRR, 4+ bila teral edema with s kin changes GI: so ft, non tender, no n distended Neuro: ? motor grossly in tact, alert Psych: appropriate affec t, appropriate ins ight? skin: diffus e excoriated rash Objective Data Active Medications Allopurinol (Allopurinol 300 Mg Tablet) 300 mg PO DAILY [facility] Last Admin: 09/09/22 08:06 Dose: 300 mg Documented By: CARLITO Amlodipine Besylate (Amlodipine Besylate 5 Mg Tablet) 5 mg PO DAILY@1200 [facility]; Protocol Last Admin: 09/08/22 11:39 Dose: 5 mg Documented By: JESUS MANUEL Apixaban (Apixaban 5 Mg Tablet) 5 mg PO BID [facility] Last Admin: 09/09/22 08:07 Dose: 5 mg Documented By: CARLITO Atorvastatin Calcium (Atorvastatin Calcium 80 Mg Tablet) 80 mg PO BEDTIME [facility] Last Admin: 09/08/22 21:21 Dose: 80 mg Documented By: ARI Bumetanide (Bumetanide 1 Mg/4 Ml Vial) 1 mg IVPUSH BID@0900,1700 [facility]; Protocol Last Admin: 09/09/22 08:07 Dose: 1 mg Documented By: CARLITO Empagliflozin (Empagliflozin 10 Mg Tablet) 10 mg PO DAILY [facility] Last Admin: 09/09/22 08:07 Dose: 10 mg Documented By: CARLITO Glucose (Glucose Gel 15 Gm Gel..Gram.) 15 gm PO Q15M PRN; Protocol PRN Reason: per Hypoglycemia Standing Ord. Hydrocortisone (Hydrocortisone 1 % Cream 28.35 Gm Tube) 1 appl TOPICAL BID PRN; Protocol PRN Reason: puririts Last Admin: 09/08/22 10:41 Dose: 1 appl Documented By: JESUS MANUEL Dextrose (D10) 250 mls @ 750 mls/hr IV Q15M PRN; Protocol PRN Reason: per Hypoglycemia Standing Ord. Ceftriaxone Sodium 1 gm/ (Sodium Chloride) 50 mls @ 100 mls/hr IV Q24H [facility] Last Infusion: 09/08/22 16:53 Dose: 0 mls/hr Documented By: CARLITO Insulin Glargine (Insulin Glargine,Hum.Rec.Anlog 100 Unit/Ml 10 Ml Vial) 28 unit SUBCUT BEDTIME [facility] Last Admin: 09/08/22 21:21 Dose: 28 unit Documented By: ARI Insulin Human Lispro (Insulin Lispro 100 Unit/Ml 3 Ml Vial) 0 unit SUBCUT QIDACHS [facility]; Protocol Last Admin: 09/09/22 08:07 Dose: 2 unit Documented By: CARLITO Insulin Human Lispro (Insulin Lispro 100 Unit/Ml 3 Ml Vial) 5 unit SUBCUT QIDACHS [facility] Last Admin: 09/09/22 08:07 Dose: 5 unit Documented By: CARLITO Pharmacy Consult (Consult Rx Perform Med Rec) 1 each MISCELLANE ONCE PRN PRN Reason: Consult order Prednisone (Prednisone 20 Mg Tablet) 40 mg PO DAILY [facility] Last Admin: 09/09/22 08:07 Dose: 40 mg Documented By: CARLITO Sodium Chloride (0.9 % Sodium Chloride Flush 3 Ml Syringe) 3 ml IVFLUSH QSHIFT [facility] Last Admin: 09/09/22 08:08 Dose: 3 ml Documented By: CARLITO Tamsulosin HCl (Tamsulosin Hcl 0.4 Mg Capsule) 0.4 mg PO BEDTIME [facility] Last Admin: 09/08/22 21:21 Dose: 0.4 mg Documented By: ARI Zinc Oxide (Zinc Oxide (Triple Paste) 56.7 Gm Oint) 1 appl TOPICAL QID PRN; Protocol PRN Reason: Diaper Rash Last Admin: 09/09/22 00:08 Dose: 1 appl Documented By: ARI Labs 09/09/22 06:07 09/09/22 06:06 Labs: Laboratory Results - last 24 hr 09/08/22 09/08/22 09/08/22 11:12 16:06 19:56 MCV MCH MCHC RDW Plt Count MPV Absolute Nucleated RBC Nucleated RBC % (auto) Anion Gap Estim Creat Clear Calc Estimated GFR POC Glucose 215 H 250 H 282 H Fasting Glucose Calcium 09/09/22 09/09/22 09/09/22 06:06 06:07 07:21 MCV 89.5 MCH 27.1 MCHC 30.3 L RDW 16.1 H Plt Count 231 MPV 10.3 Absolute Nucleated RBC 0.000 Nucleated RBC % (auto) 0.0 Anion Gap 14 Estim Creat Clear Calc 63.1 Estimated GFR 38 POC Glucose 182 H Fasting Glucose 188 H Calcium 8.5 Microbiology Microbiology Results: Microbiology 09/07/22 Unknown Urine Culture - Final Urine clean catch - Urine scott top Escherichia coli 09/07/22 16:07 Blood Culture - Preliminary Blood - Venous No growth after 24 hours. 09/07/22 13:16 Blood Culture - Preliminary Blood - Venous No growth after 24 hours. Assessment and Plan (1) CHF (congestive heart failure): Status: Acute Plan 71M PMH chronic afib, DM, CKD III, HTN, gout, morbid obesity, CKD IV, chronic diastolic and right sided CHF, presented with sob. acute on chronic diastolic and right sided chf iv bumex, monitor is and os, bmp diffuse rash prednisone, topical steroids positive ua - ecoli uti vs asypmtomatic bacturia given chills treating with rocephin morbid obesity weight loss recommended DM insulin CKD IV stable, monitor chronic afib with rvr eliquis will add lopressor dvt prophylaxis - eliquis full code reason for continued hospitalization:diuresisng iv Time Spent With Patient Time: Total time managing care of this patient today ____ minutes. Quality Stroke Does the patient have a stroke diagnosis?: No VTE Prior VTE?: No VTE Risk Level:: Medical - moderate - high VTE Device Contraindication: Treatment Not Indicated VTE Drug Contraindication: N/A - Med Ordered
[2022-09-09] MEDS: Metoprolol Tartrate 25 MG TABLET PO ×2 (09:58→21:16)
[2022-09-09 11:54] LABS: Glucose, Whole Blood 172 mg/dL (60-115)
[2022-09-09] MEDS: amLODIPine Besylate 5 MG TABLET PO (12:13)
--- NOTE | 2022-09-09 12:39 | MHC.CM.PN ---
EMR REVIEWE, PT W/ACUTE ON CHRONIC CHF, PT REMAINS ON IV BUMEX AND IV ABX, PER HOSPITALIST BINU D/C IN 1-2 MORE DAYS, ANTIC PT WILL RETURN HOME W/RESUMP OF [facility] V[facility] ONCE MEDICALLY CLEARED, CM WILL CONT TO FOLLOW D/C NEEDS.
[2022-09-09] MEDS: cefTRIAXone sodium 1 GM in 0.9 % Sodium Chloride 50 ML IV (15:24)
[2022-09-09] MEDS: Hydrocortisone 1 % Cream 28.35 GM TUBE 1 APPL TOPICAL (15:27)
[2022-09-09 15:53] LABS: Glucose, Whole Blood 252 mg/dL (60-115)
[2022-09-09 20:58] LABS: Glucose, Whole Blood 298 mg/dL (60-115)
[2022-09-09] MEDS: Atorvastatin Calcium 80 MG TABLET PO (21:16)
[2022-09-09] MEDS: Tamsulosin HCL 0.4 MG CAPSULE PO (21:16)
[2022-09-09] MEDS: Insulin Glargine,Hum.rec.anlog 100 UNIT/ML 10 ML VIAL 28 UNIT SUBCUT (21:17)
[2022-09-10] VITALS (11 sets, daily range): BP systolic 127–148; BP diastolic 60–66; PULSE 54–75; RESP 14–20; TEMP 36–36.4; O2SAT 97–99
--- NOTE | 2022-09-10 02:37 | PC.NURSE ---
Pt HR had dipped to 35, did no sustain. Pt was asleep and asymptomatic, vitals 127/60, HR 62, 97.0f, 99% on ra. MD Paulino notified.
[2022-09-10 07:02] LABS: Hematocrit 37.3 % (42.0-52.0); Hemoglobin 11.6 g/dl (14.0-18.0); Mean Corpuscular HGB Conc 31.1 g/dl (31.0-36.0); Mean Corpuscular Hemoglobin 27.8 pg (27.0-33.0); Mean Corpuscular Volume 89.2 fL (80.0-98.0); Mean Platelet Volume 10.4 fL (9.4-12.4); Platelet Count 228 X10*3/uL (160-400); Red Blood Count 4.18 X10*6/uL (4.60-5.80); Red Cell Distribution Width 16.2 % (11.0-16.0); White Blood Count 10.2 X10*3/uL (4.8-10.8)
[2022-09-10 07:32] LABS: Anion Gap 14 (12-20); Blood Urea Nitrogen 50 mg/dL (9-16); Calcium 8.5 mg/dL (8.4-10.2); Carbon Dioxide 27 mmol/L (22-29); Chloride 103 mmol/L (96-108); Creatinine Clr Calc Pharmacy 66.4; Estimated Glomerular Filt Rate 40; Glucose Fasting 232 mg/dL (60-99); Magnesium 2.6 mg/dL (1.6-2.6); Potassium 3.9 mmol/L (3.3-5.1); Sodium 140 mmol/L (135-145)
[2022-09-10 07:46] LABS: Glucose, Whole Blood 201 mg/dL (60-115)
[2022-09-10] MEDS: Albuterol/Iprat 2.5/0.5MG 3 ML AMPUL.NEB INHALE ×2 (08:06→18:48)
[2022-09-10] MEDS: Insulin Lispro 100 UNIT/ML 3 ML VIAL SUBCUT ×8 (08:41→20:16)
[2022-09-10] MEDS: predniSONE 20 MG TABLET 40 MG PO (08:43)
[2022-09-10] MEDS: Empagliflozin 10 MG TABLET PO (08:43)
[2022-09-10] MEDS: allopurinoL 300 MG TABLET PO (08:43)
[2022-09-10] MEDS: Bumetanide 1 MG/4 ML VIAL IVPUSH ×2 (08:43→17:19)
[2022-09-10] MEDS: Apixaban 5 MG TABLET PO ×2 (08:43→20:15)
[2022-09-10] MEDS: Hydrocortisone 1 % Cream 28.35 GM TUBE 1 APPL TOPICAL ×2 (08:51→20:15)
[2022-09-10] MEDS: Zinc Oxide (Triple Paste) 56.7 GM OINT 1 APPL TOPICAL (08:51)
[2022-09-10] MEDS: 0.9 % Sodium Chloride Flush 3 ML SYRINGE IVFLUSH ×3 (08:54→20:16)
--- NOTE | 2022-09-10 09:57 | HO.PM.IMPN ---
Subjective Subjective Date of Service: 09/10/22 Interval History: rash improved, wheezy Physical Exam Vital Signs: Vital Signs: Last Vital Signs Temp 97.5 F 09/10/22 07:13 Pulse 65 09/10/22 08:10 Resp 18 09/10/22 08:10 BP 133/63 09/10/22 07:13 Pulse Ox 99 09/10/22 07:13 O2 Del Method Room Air 09/10/22 07:13 BMI result Body Mass Index 58.6 General: AO X 3, s ob Resp:? wheezing bilateral,? acces khai muscles used CVS: S1,S2,RRR, 4+ bilateral edema w ith skin changes G I: soft, non tende r, non distended N euro:? motor gross ly intact, alert P sych: appropriate affect, appropriat e insight? skin: d iffuse excoriated rash Objective Data Active Medications Albuterol/Ipratropium (Albuterol/Iprat 2.5/0.5mg 3 Ml Ampul.Neb) 3 ml INHALE RQ4H WHILE AWAKE PENDING SALE TO [facility] Last Admin: 09/10/22 08:06 Dose: 3 ml Documented By: CHEMA Allopurinol (Allopurinol 300 Mg Tablet) 300 mg PO DAILY [facility] TO [facility] Last Admin: 09/10/22 08:43 Dose: 300 mg Documented By: IRENE Amlodipine Besylate (Amlodipine Besylate 5 Mg Tablet) 5 mg PO DAILY@1200 [facility]; Protocol Last Admin: 09/09/22 12:13 Dose: 5 mg Documented By: CARLITO Apixaban (Apixaban 5 Mg Tablet) 5 mg PO BID [facility]END[facility] S[facility] TO [facility] Last Admin: 09/10/22 08:43 Dose: 5 mg Documented By: IRENE Atorvastatin Calcium (Atorvastatin Calcium 80 Mg Tablet) 80 mg PO BEDTIME PENDING SALE TO [facility] Last Admin: 09/09/22 21:16 Dose: 80 mg Documented By: AASHISH Bumetanide (Bumetanide 1 Mg/4 Ml Vial) 1 mg IVPUSH BID@0900,1700 [facility]END[facility] SALE TO [facility]; Protocol Last Admin: 09/10/22 08:43 Dose: 1 mg Documented By: IRENE Empagliflozin (Empagliflozin 10 Mg Tablet) 10 mg PO DAILY [facility] SALE TO [facility] Last Admin: 09/10/22 08:43 Dose: 10 mg Documented By: IRENE Glucose (Glucose Gel 15 Gm Gel..Gram.) 15 gm PO Q15M PRN; Protocol PRN Reason: per Hypoglycemia Standing Ord. Hydrocortisone (Hydrocortisone 1 % Cream 28.35 Gm Tube) 1 appl TOPICAL BID PRN; Protocol PRN Reason: puririts Last Admin: 09/10/22 08:51 Dose: 1 appl Documented By: IRENE Dextrose (D10) 250 mls @ 750 mls/hr IV Q15M PRN; Protocol PRN Reason: per Hypoglycemia Standing Ord. Ceftriaxone Sodium 1 gm/ (Sodium Chloride) 50 mls @ 100 mls/hr IV Q24H PENDING SALE TO [facility] Last Infusion: 09/09/22 16:04 Dose: 0 mls/hr Documented By: CARLITO Insulin Glargine (Insulin Glargine,Hum.Rec.Anlog 100 Unit/Ml 10 Ml Vial) 28 unit SUBCUT BEDTIME [facility]ENDING SALE TO [facility] Last Admin: 09/09/22 21:17 Dose: 28 unit Documented By: AASHISH Insulin Human Lispro (Insulin Lispro 100 Unit/Ml 3 Ml Vial) 0 unit SUBCUT QIDACHS [facility]END[facility] SALE TO [facility]; Protocol Last Admin: 09/10/22 08:41 Dose: 4 unit Documented By: IRENE Insulin Human Lispro (Insulin Lispro 100 Unit/Ml 3 Ml Vial) 5 unit SUBCUT QIDACHS [facility]END[facility] SALE TO [facility] Last Admin: 09/10/22 08:41 Dose: 5 unit Documented By: IRENE Pharmacy Consult (Consult Rx Perform Med Rec) 1 each MISCELLANE ONCE PRN PRN Reason: Consult order Prednisone (Prednisone 20 Mg Tablet) 40 mg PO DAILY [facility] TO [facility] Last Admin: 09/10/22 08:43 Dose: 40 mg Documented By: IRENE Sodium Chloride (0.9 % Sodium Chloride Flush 3 Ml Syringe) 3 ml IVFLUSH QSHIFT PENDING SALE TO [facility] Last Admin: 09/10/22 08:54 Dose: 3 ml Documented By: IRENE Tamsulosin HCl (Tamsulosin Hcl 0.4 Mg Capsule) 0.4 mg PO BEDTIME PENDING SALE TO [facility] Last Admin: 09/09/22 21:16 Dose: 0.4 mg Documented By: AASHISH Zinc Oxide (Zinc Oxide (Triple Paste) 56.7 Gm Oint) 1 appl TOPICAL QID PRN; Protocol PRN Reason: Diaper Rash Last Admin: 09/10/22 08:51 Dose: 1 appl Documented By: IRENE Labs 09/10/22 06:49 09/10/22 06:49 Labs: Laboratory Results - last 24 hr 09/09/22 09/09/22 09/09/22 11:44 15:46 20:44 MCV MCH MCHC RDW Plt Count MPV Absolute Nucleated RBC Nucleated RBC % (auto) Anion Gap Estim Creat Clear Calc Estimated GFR POC Glucose 172 H 252 H 298 H Fasting Glucose Calcium Magnesium 09/10/22 09/10/22 09/10/22 06:49 06:49 07:15 MCV 89.2 MCH 27.8 MCHC 31.1 RDW 16.2 H Plt Count 228 MPV 10.4 Absolute Nucleated RBC 0.000 Nucleated RBC % (auto) 0.0 Anion Gap 14 Estim Creat Clear Calc 66.4 Estimated GFR 40 POC Glucose 201 H Fasting Glucose 232 H Calcium 8.5 Magnesium 2.6 Microbiology Microbiology Results: Microbiology 09/07/22 16:07 Blood Culture - Preliminary Blood - Venous No growth after 48 hours. 09/07/22 13:16 Blood Culture - Preliminary Blood - Venous No growth after 48 hours. 09/07/22 Unknown Urine Culture - Final Urine clean catch - Urine scott top Escherichia coli Assessment and Plan (1) CHF (congestive heart failure): Status: Acute Plan 71M PMH chronic afib, DM, CKD III, HTN, gout, morbid obesity, CKD IV, chronic diastolic and right sided CHF, presented with sob. acute on chronic diastolic and right sided chf iv bumex, monitor is and os, bmp moderate persistent asthma with acute decopmensation prednisone, duonebs diffuse rash prednisone, topical steroids positive ua - ecoli uti vs asypmtomatic bacturia given chills treating with rocephin morbid obesity weight loss recommended DM insulin CKD IV stable, monitor chronic afib with rvr and trisha eliquis did not tolerate beta thom dvt prophylaxis - eliquis full code reason for continued hospitalization:diuresisng iv Time Spent With Patient Time: Total time managing care of this patient today ____ minutes. Quality Stroke Does the patient have a stroke diagnosis?: No VTE Prior VTE?: No VTE Risk Level:: Medical - moderate - high VTE Device Contraindication: Treatment Not Indicated VTE Drug Contraindication: N/A - Med Ordered
[2022-09-10 11:39] LABS: Glucose, Whole Blood 180 mg/dL (60-115)
[2022-09-10] MEDS: amLODIPine Besylate 5 MG TABLET PO (11:58)
[2022-09-10] MEDS: bisacodyL 5 MG TABLET.DR 10 MG PO (15:11)
[2022-09-10] MEDS: cefTRIAXone sodium 1 GM in 0.9 % Sodium Chloride 50 ML IV (15:11)
[2022-09-10 16:31] LABS: Glucose, Whole Blood 315 mg/dL (60-115)
[2022-09-10] MEDS: Atorvastatin Calcium 80 MG TABLET PO (20:15)
[2022-09-10] MEDS: Insulin Glargine,Hum.rec.anlog 100 UNIT/ML 10 ML VIAL 28 UNIT SUBCUT (20:17)
[2022-09-10] MEDS: Tamsulosin HCL 0.4 MG CAPSULE PO (20:17)
[2022-09-10 20:20] LABS: Glucose, Whole Blood 383 mg/dL (60-115)
[2022-09-11] VITALS (7 sets, daily range): BP systolic 135–150; BP diastolic 63–79; PULSE 58–81; RESP 15–20; TEMP 35.9–36.8; O2SAT 96–99
[2022-09-11 06:37] LABS: Anion Gap 16 (12-20); Blood Urea Nitrogen 47 mg/dL (9-16); Calcium 8.4 mg/dL (8.4-10.2); Carbon Dioxide 26 mmol/L (22-29); Chloride 103 mmol/L (96-108); Creatinine Clr Calc Pharmacy 67.2; Estimated Glomerular Filt Rate 40; Glucose Fasting 215 mg/dL (60-99); Potassium 4.2 mmol/L (3.3-5.1); Sodium 141 mmol/L (135-145)
[2022-09-11 06:42] LABS: Hematocrit 37.6 % (42.0-52.0); Hemoglobin 11.5 g/dl (14.0-18.0); Mean Corpuscular HGB Conc 30.6 g/dl (31.0-36.0); Mean Corpuscular Hemoglobin 27.5 pg (27.0-33.0); Mean Platelet Volume 11.2 fL (9.4-12.4); Platelet Count 231 X10*3/uL (160-400); Red Blood Count 4.18 X10*6/uL (4.60-5.80); Red Cell Distribution Width 16.2 % (11.0-16.0); White Blood Count 9.7 X10*3/uL (4.8-10.8)
[2022-09-11] MEDS: predniSONE 20 MG TABLET 40 MG PO (07:40)
[2022-09-11] MEDS: allopurinoL 300 MG TABLET PO (07:40)
[2022-09-11] MEDS: Apixaban 5 MG TABLET PO ×2 (07:40→21:59)
[2022-09-11] MEDS: Empagliflozin 10 MG TABLET PO (07:40)
[2022-09-11] MEDS: Bumetanide 1 MG/4 ML VIAL IVPUSH ×2 (07:40→16:18)
[2022-09-11] MEDS: Insulin Lispro 100 UNIT/ML 3 ML VIAL SUBCUT ×8 (07:51→21:59)
[2022-09-11] MEDS: 0.9 % Sodium Chloride Flush 3 ML SYRINGE IVFLUSH ×3 (07:52→22:04)
[2022-09-11 08:09] LABS: Glucose, Whole Blood 189 mg/dL (60-115)
--- NOTE | 2022-09-11 08:29 | P.PNIM_ITS ---
Subjective Subjective Date of Service: 09/11/22 Interval History: sob imprvoing Physical Exam Vital Signs: Vital Signs: Last Vital Signs Temp 97.8 F 09/11/22 07:25 Pulse 64 09/11/22 07:25 Resp 20 09/11/22 07:25 BP 137/63 09/11/22 07:25 Pulse Ox 99 09/11/22 07:25 O2 Del Method Room Air 09/11/22 07:25 BMI result Body Mass Index 58.6 General: AO X 3, l ess sob Resp:?cta bilateral,?no acc essory muscles use d CVS: S1,S2,RRR, 4+ bilateral edema with skin changes GI: soft, non ten genesis, non distended Neuro:? motor amelia ssly intact, alert Psych: appropriat e affect, appropri ate insight? skin: diffuse excoriate d rash Objective Data Active Medications Allopurinol (Allopurinol 300 Mg Tablet) 300 mg PO DAILY [facility] Last Admin: 09/11/22 07:40 Dose: 300 mg Documented By: IRENE Amlodipine Besylate (Amlodipine Besylate 5 Mg Tablet) 5 mg PO DAILY@1200 [facility]; Protocol Last Admin: 09/10/22 11:58 Dose: 5 mg Documented By: IRENE Apixaban (Apixaban 5 Mg Tablet) 5 mg PO BID [facility] Last Admin: 09/11/22 07:40 Dose: 5 mg Documented By: IRENE Atorvastatin Calcium (Atorvastatin Calcium 80 Mg Tablet) 80 mg PO BEDTIME [facility] Last Admin: 09/10/22 20:15 Dose: 80 mg Documented By: JOLANTA Bumetanide (Bumetanide 1 Mg/4 Ml Vial) 1 mg IVPUSH BID@0900,1700 [facility]; Protocol Last Admin: 09/11/22 07:40 Dose: 1 mg Documented By: IRENE Empagliflozin (Empagliflozin 10 Mg Tablet) 10 mg PO DAILY [facility] Last Admin: 09/11/22 07:40 Dose: 10 mg Documented By: IRENE Glucose (Glucose Gel 15 Gm Gel..Gram.) 15 gm PO Q15M PRN; Protocol PRN Reason: per Hypoglycemia Standing Ord. Hydrocortisone (Hydrocortisone 1 % Cream 28.35 Gm Tube) 1 appl TOPICAL BID PRN; Protocol PRN Reason: puririts Last Admin: 09/10/22 20:15 Dose: 1 appl Documented By: JOLANTA Dextrose (D10) 250 mls @ 750 mls/hr IV Q15M PRN; Protocol PRN Reason: per Hypoglycemia Standing Ord. Ceftriaxone Sodium 1 gm/ (Sodium Chloride) 50 mls @ 100 mls/hr IV Q24H [facility] Last Infusion: 09/10/22 15:41 Dose: 0 mls/hr Documented By: IRENE Insulin Glargine (Insulin Glargine,Hum.Rec.Anlog 100 Unit/Ml 10 Ml Vial) 28 unit SUBCUT BEDTIME [facility] Last Admin: 09/10/22 20:17 Dose: 28 unit Documented By: JOLANTA Insulin Human Lispro (Insulin Lispro 100 Unit/Ml 3 Ml Vial) 0 unit SUBCUT QIDACHS [facility]; Protocol Last Admin: 09/11/22 07:51 Dose: 2 unit Documented By: IRENE Insulin Human Lispro (Insulin Lispro 100 Unit/Ml 3 Ml Vial) 5 unit SUBCUT QIDACHS [facility] Last Admin: 09/11/22 07:51 Dose: 5 unit Documented By: IRENE Pharmacy Consult (Consult Rx Perform Med Rec) 1 each MISCELLANE ONCE PRN PRN Reason: Consult order Prednisone (Prednisone 20 Mg Tablet) 40 mg PO DAILY [facility] Last Admin: 09/11/22 07:40 Dose: 40 mg Documented By: IRENE Sodium Chloride (0.9 % Sodium Chloride Flush 3 Ml Syringe) 3 ml IVFLUSH QSHIFT [facility] Last Admin: 09/11/22 07:52 Dose: 3 ml Documented By: IRENE Tamsulosin HCl (Tamsulosin Hcl 0.4 Mg Capsule) 0.4 mg PO BEDTIME [facility] Last Admin: 09/10/22 20:17 Dose: 0.4 mg Documented By: JOLANTA Zinc Oxide (Zinc Oxide (Triple Paste) 56.7 Gm Oint) 1 appl TOPICAL QID PRN; Protocol PRN Reason: Diaper Rash Last Admin: 09/10/22 08:51 Dose: 1 appl Documented By: IRENE Labs 09/11/22 06:07 09/11/22 06:07 Labs: Laboratory Results - last 24 hr 09/10/22 09/10/22 09/10/22 11:20 16:14 19:57 MCV MCH MCHC RDW Plt Count MPV Absolute Nucleated RBC Nucleated RBC % (auto) Anion Gap Estim Creat Clear Calc Estimated GFR POC Glucose 180 H 315 H 383 H* Fasting Glucose Calcium 09/11/22 09/11/22 09/11/22 06:07 06:07 07:25 MCV 90.0 MCH 27.5 MCHC 30.6 L RDW 16.2 H Plt Count 231 MPV 11.2 Absolute Nucleated RBC 0.000 Nucleated RBC % (auto) 0.0 Anion Gap 16 Estim Creat Clear Calc 67.2 Estimated GFR 40 POC Glucose 189 H Fasting Glucose 215 H Calcium 8.4 Assessment and Plan (1) CHF (congestive heart failure): Status: Acute Plan 71M PMH chronic afib, DM, CKD III, HTN, gout, morbid obesity, CKD IV, chronic diastolic and right sided CHF, presented with sob. acute on chronic diastolic and right sided chf iv bumex, monitor is and os, bmp moderate persistent asthma with acute decopmensation prednisone, duonebs prn diffuse rash prednisone, topical steroids, improving positive ua - ecoli uti vs asypmtomatic bacturia given chills treating with rocephin morbid obesity weight loss recommended DM insulin july on CKD IV cardiorenal improving with diuresis monitor chronic afib with rvr and trisha eliquis did not tolerate beta thom dvt prophylaxis - eliquis full code reason for continued hospitalization:diuresisng iv Time Spent With Patient Time: Total time managing care of this patient today ____ minutes. Quality Stroke Does the patient have a stroke diagnosis?: No VTE Prior VTE?: No VTE Risk Level:: Medical - moderate - high VTE Device Contraindication: Treatment Not Indicated VTE Drug Contraindication: N/A - Med Ordered
[2022-09-11 11:35] LABS: Glucose, Whole Blood 213 mg/dL (60-115)
[2022-09-11] MEDS: amLODIPine Besylate 5 MG TABLET PO (11:49)
[2022-09-11 16:16] LABS: Glucose, Whole Blood 329 mg/dL (60-115)
[2022-09-11] MEDS: cefTRIAXone sodium 1 GM in 0.9 % Sodium Chloride 50 ML IV (16:18)
[2022-09-11] MEDS: Hydrocortisone 1 % Cream 28.35 GM TUBE 1 APPL TOPICAL (16:59)
[2022-09-11 20:31] LABS: Glucose, Whole Blood 387 mg/dL (60-115)
[2022-09-11] MEDS: Atorvastatin Calcium 80 MG TABLET PO (21:59)
[2022-09-11] MEDS: Tamsulosin HCL 0.4 MG CAPSULE PO (21:59)
[2022-09-11] MEDS: Insulin Glargine,Hum.rec.anlog 100 UNIT/ML 10 ML VIAL 28 UNIT SUBCUT (22:01)
[2022-09-12 00:29] VITALS: RESP 18
[2022-09-12 03:29] VITALS: BP 165/83; PULSE 60; RESP 18; TEMP 35.9; O2SAT 97
[2022-09-12 06:52] LABS: Hematocrit 38.6 % (42.0-52.0); Hemoglobin 11.7 g/dl (14.0-18.0); Mean Corpuscular HGB Conc 30.3 g/dl (31.0-36.0); Mean Corpuscular Hemoglobin 27.4 pg (27.0-33.0); Mean Corpuscular Volume 90.4 fL (80.0-98.0); Mean Platelet Volume 10.6 fL (9.4-12.4); Platelet Count 224 X10*3/uL (160-400); Red Blood Count 4.27 X10*6/uL (4.60-5.80); Red Cell Distribution Width 16.3 % (11.0-16.0); White Blood Count 10.1 X10*3/uL (4.8-10.8)
[2022-09-12 07:01] LABS: Anion Gap 11 (12-20); Blood Urea Nitrogen 47 mg/dL (9-16); Calcium 8.6 mg/dL (8.4-10.2); Carbon Dioxide 31 mmol/L (22-29); Chloride 102 mmol/L (96-108); Creatinine Clr Calc Pharmacy 66.4; Estimated Glomerular Filt Rate 40; Glucose Fasting 147 mg/dL (60-99); Magnesium 2.6 mg/dL (1.6-2.6); Potassium 4.2 mmol/L (3.3-5.1); Sodium 140 mmol/L (135-145)
[2022-09-12 07:09] VITALS: BP 155/70; PULSE 64; RESP 20; TEMP 36.1; O2SAT 98
[2022-09-12 07:37] LABS: Glucose, Whole Blood 142 mg/dL (60-115)
--- NOTE | 2022-09-12 08:39 | P.DS_ITS ---
DS: Providers Provider Date of Service: 09/12/22 Date of admission: 09/07/22 16:45 Primary care physician: Guzman Edouard DS: Diagnosis Discharge Diagnosis (1) CHF (congestive heart failure): Status: Acute DS: Summary Hospital Course Hospital Course: from initial hpi: 71M PMH chronic afib, DM, CKD III, HTN, gout, morbid obesity, CKD IV, chronic diastolic and right sided CHF, presented with sob. patient was discharged from [facility] 08/10/22 after hospitalization for pneumonia and chf. he states he was feeling well day ptp, able to ambulate and do stairs without stopping for sob. now on day of presentation patient has singificant increase in sob, worse with mild exertion, positive orthopnea. does not about 10lbs weight gain over past few days. reports chills without fevers. denies dysuria or cough. he does note diffuse pruritic rash recurrence. hospital course: Patient was admitted for acute on chronic diastolic and right-sided CHF. He was diuresed with IV Bumex and shortness of breath and edema significantly improved. On discharge he will go back to home dose maintenance torsemide. For moderate persistent asthma he had acute comes a salcedo was treated with prednisone and bronchodilators. Patient's diffuse pruritic rash she was treated with prednisone and topical steroids with significant improvement. He will follow up outpatient with Dermatology. For urinary tract infection due to E coli he was treated with IV ceftriaxone and will be given 5 more days of oral cefuroxime. For morbid obesity weight loss is recommended. For diabetes he was continued on insulin. For acute kidney injury on CKD 4 this was likely cardiorenal and improved significantly with diuresis. Patient's chronic atrial fibrillation he had episodes of rapid ventricular response and bradycardia. He was continued on Eliquis. He was tried on low-dose beta-thom but did not tolerate as it became significant bradycardic. Heart rate is now controlled off medications. Patient is feeling better will be discharged home. Time Spent with Patient Time attestation: Total time managing care of this patient today ____ minutes. Discharge coordination time: Greater than 30 minutes Quality: Safe Use of Opioids Does Pt have an Active Cancer Diagnosis on the Problem List?: No Quality: Stroke Does the patient have a stroke diagnosis?: No Physical Exam Vital Signs: Vital Signs: Last Vital Signs Temp 96.9 F 09/12/22 07:09 Pulse 64 06/12/23 07:09 Resp 20 09/12/22 07:09 BP 155/70 H 09/12/22 07:09 Pulse Ox 98 09/12/22 07:09 O2 Del Method Room Air 09/12/22 07:09 BMI result Body Mass Index 58.6 cta bilateral, improved edema, improved rash DS: Data Data Completed and Pending Completed studies during hospitalization [Text1]: Procedures Excision of Cecum, Via Natural or Artificial Opening Endoscopic, Diagnostic (05/03/22) Excision of Sigmoid Colon, Via Natural or Artificial Opening Endoscopic, Diagnostic (05/03/22) Insertion of Infusion Device into Right Brachial Vein, Percutaneous Approach (05/03/22) Labs on day of discharge: Laboratory Results - last 24 hr 09/11/22 09/11/22 09/11/22 11:14 16:09 20:25 WBC RBC Hgb Hct MCV MCH MCHC RDW Plt Count MPV Absolute Nucleated RBC Nucleated RBC % (auto) Sodium Potassium Chloride Carbon Dioxide Anion Gap BUN Creatinine Estim Creat Clear Calc Estimated GFR POC Glucose 213 H 329 H 387 H* Fasting Glucose Calcium Magnesium 09/12/22 09/12/22 09/12/22 06:30 06:30 07:12 WBC 10.1 RBC 4.27 L Hgb 11.7 L Hct 38.6 L MCV 90.4 MCH 27.4 MCHC 30.3 L RDW 16.3 H Plt Count 224 MPV 10.6 Absolute Nucleated RBC 0.000 Nucleated RBC % (auto) 0.0 Sodium 140 Potassium 4.2 Chloride 102 Carbon Dioxide 31 H Anion Gap 11 L BUN 47 H Creatinine 1.70 H Estim Creat Clear Calc 66.4 Estimated GFR 40 POC Glucose 142 H Fasting Glucose 147 H Calcium 8.6 Magnesium 2.6 Preliminary micro results at discharge 09/07/22 16:07 Blood Culture - Preliminary Blood - Venous No growth after 48 hours. 09/07/22 13:16 Blood Culture - Preliminary Blood - Venous No growth after 48 hours. Discharge Plan Discharge Anticipated Discharge Date/Time: 09/12/22 08:36 Patient Disposition: Home, Self-Care Discharge Diagnosis: chf, uti Referrals: Guzman Edouard [Primary Care Provider] - 1 Week Discharge Medications: New cefuroxime axetil 500 mg tablet 500 mg PO BID Qty: 10 0RF Continued Eliquis 5 mg tablet 5 mg PO BID 30 Days Qty: 60 5RF methenamine hippurate 1 gram Tablet 1 g PO BID tamsulosin 0.4 mg Capsule 0.4 mg PO BEDTIME insulin aspart U-100 [Novolog U-100 Insulin aspart] 100 unit/mL Solution 16 unit SUBCUT DAILY@1200 insulin aspart U-100 [Novolog U-100 Insulin aspart] 100 unit/mL Solution 20 unit SUBCUT DAILY@1630 ascorbic acid (vitamin C) [Vitamin C] 1,000 mg Tablet 1,000 mg PO BID allopurinol 300 mg Tablet 300 mg PO DAILY cholecalciferol (vitamin D3) 50 mcg (2,000 unit) Capsule 50 mcg PO DAILY insulin glargine [Lantus Solostar U-100 Insulin] 100 unit/mL (3 mL) Insulin Pen 28 unit SUBCUT BEDTIME@2100 cyanocobalamin (vitamin B-12) 100 mcg Tablet 200 mcg PO DAILY rosuvastatin 40 mg Tablet 40 mg PO BEDTIME insulin aspart U-100 [Novolog U-100 Insulin aspart] 100 unit/mL Solution 8 unit SUBCUT DAILY@0800 amlodipine 5 mg Tablet 5 mg PO DAILY@1200 Jardiance 10 mg Tablet 10 mg PO DAILY Qty: 30 0RF torsemide 40 mg tablet 40 mg PO DAILY@0900 ammonium lactate 12 % Lotion 1 appl TOPICAL DAILY Discontinued torsemide 20 mg Tablet 20 mg PO DAILY@1200 Discharge Orders: Discharge Order (Routine); Ordered 09/12/22 Ordered By: Dedrick Leos Diet: Advance to usual diet Activity on Discharge: As tolerated Stand Alone Forms: Patient Portal Discharge page Care Plan Goals: avoid chf, treat uti Health Concerns: uti, chf, rash Plan of Treatment: 5 more days ceftin, back to maintencance torsemide, monitor weights, swelling Assessment: see above
[2022-09-12] MEDS: Furosemide 40 MG TABLET PO (08:56)
[2022-09-12] MEDS: Empagliflozin 10 MG TABLET PO (08:56)
[2022-09-12] MEDS: Insulin Lispro 100 UNIT/ML 3 ML VIAL SUBCUT (08:57)
[2022-09-12] MEDS: allopurinoL 300 MG TABLET PO (08:57)
[2022-09-12] MEDS: 0.9 % Sodium Chloride Flush 3 ML SYRINGE IVFLUSH (08:57)
[2022-09-12] MEDS: predniSONE 20 MG TABLET 40 MG PO (08:57)
[2022-09-12] MEDS: Apixaban 5 MG TABLET PO (08:57)
[2022-09-12] MEDS: Zinc Oxide (Triple Paste) 56.7 GM OINT 1 APPL TOPICAL (09:02)
--- NOTE | 2022-09-12 10:46 | MHC.CM.PN ---
EMR reviewed and per MD rounds, pt is medically cleared for D/C home with resumption of [facility], pts to transport.
== END 2022-09-12 11:12 | disposition home or self-care (01) | DRG 291 ==
LOC: HO.ED 13:15 → HO.EDOVER 16:51 → HO.IMC 18:22
PROVIDERS: Physician Assistant; Admitting Provider Internal Medicine; Emergency Provider Internal Medicine; PCP Internal Medicine; Visit Provider Internal Medicine
DX: I13.0 Hypertensive heart and chronic kidney disease with heart failure and stage 1 through stage 4 chronic kidney disease, or unspecified chronic kidney disease (principal); I50.33 Acute on chronic diastolic (congestive) heart failure; N18.4 Chronic kidney disease, stage 4 (severe); Z68.43 Body mass index [BMI] 50.0-59.9, adult; I48.20 Chronic atrial fibrillation, unspecified; J45.41 Moderate persistent asthma with (acute) exacerbation; E11.22 Type 2 diabetes mellitus with diabetic chronic kidney disease; E66.01 Morbid (severe) obesity due to excess calories; I50.813 Acute on chronic right heart failure; E87.6 Hypokalemia; B96.20 Unspecified Escherichia coli [E. coli] as the cause of diseases classified elsewhere; R00.1 Bradycardia, unspecified; T44.7X5A Adverse effect of beta-adrenoreceptor antagonists, initial encounter; L29.9 Pruritus, unspecified; I95.9 Hypotension, unspecified; Z20.822 Contact with and (suspected) exposure to COVID-19; Z88.0 Allergy status to penicillin; Z79.4 Long term (current) use of insulin; Z79.01 Long term (current) use of anticoagulants; Z79.899 Other long term (current) drug therapy
CPT/HCPCS: 0241U; 36415; 71046; 80048; 80053; 81001; 82947; 83605; 83690; 83735; 83880; 84484; 85025; 85027; 87040; 87086; 87088; 87186; 93005; 94640; 94660; 99285; J0696

== ENCOUNTER → 2022-09-15 13:24 | Outpatient (BNVA) | payer OTHER, MEDICARE, SELFPAY | PROVIDERS: PCP Internal Medicine; Visit Provider Nurse Practitioner Family | DX: I11.0 Hypertensive heart disease with heart failure (principal); I50.30 Unspecified diastolic (congestive) heart failure; I48.20 Chronic atrial fibrillation, unspecified; N28.9 Disorder of kidney and ureter, unspecified | CPT/HCPCS: 99212 ==

== ENCOUNTER 2022-09-22 14:34 | Outpatient (REF) | payer OTHER, SELFPAY ==
[2022-09-22 14:51] LABS: MANUAL DIFF FLAG NO
[2022-09-22 14:59] LABS: Basophils Percent Auto 0.3 % (0-2); Eosinophils Absolute Auto 0.3 X10*3/uL (0.0-0.4); Eosinophils Percent Auto 2.1 % (0-4); Hematocrit 42.4 % (42.0-52.0); Imm Gran Abs Auto 0.08 X10*3/uL (0.00-0.03); Imm Gran Pct Auto 0.7 % (0.0-0.4); Lymphocytes Absolute Auto 1.1 X10*3/uL (1.2-4.9); Lymphocytes Percent Auto 9.4 % (20-40); Mean Corpuscular HGB Conc 30.7 g/dl (31.0-36.0); Mean Corpuscular Hemoglobin 27.5 pg (27.0-33.0); Mean Corpuscular Volume 89.6 fL (80.0-98.0); Mean Platelet Volume 11.2 fL (9.4-12.4); Monocytes Absolute Auto 0.7 X10*3/uL (0.1-1.2); Monocytes Percent Auto 5.6 % (2-11); Neutrophils Absolute Auto 9.9 x10*3/uL (2.0-8.3); Neutrophils Percent Auto 81.9 % (45-73); Platelet Count 193 X10*3/uL (160-400); Red Blood Count 4.73 X10*6/uL (4.60-5.80); Red Cell Distribution Width 16.6 % (11.0-16.0); White Blood Count 12.1 X10*3/uL (4.8-10.8)
[2022-09-22 16:27] LABS: Alanine Aminotransferase 12 U/L (0-40); Albumin Level 3.5 g/dL (3.5-5.0); Alkaline Phosphatase 79 U/L (39-117); Anion Gap 19 (12-20); Aspartate Amino Transferase 17 U/L (5-37); Bilirubin Total 0.8 mg/dL (0.0-1.0); Blood Urea Nitrogen 46 mg/dL (9-16); Carbon Dioxide 27 mmol/L (22-29); Chloride 97 mmol/L (96-108); Estimated Glomerular Filt Rate 33; Glucose Random 174 mg/dL (60-115); Sodium 139 mmol/L (135-145); Total Protein 6.3 g/dL (6.5-8.0)
== END 2022-09-22 14:35 | disposition home or self-care (01) ==
LOC: HO.LNP 14:34
PROVIDERS: Visit Provider Internal Medicine
DX: I50.9 Heart failure, unspecified (principal)
CPT/HCPCS: 80053; 85025

== ENCOUNTER 2023-01-03 10:50 | Outpatient (AMB) | payer OTHER, MEDICARE, SELFPAY ==
--- NOTE | 2023-01-03 10:51 | MHC.OFFVIS ---
Intake Vital Signs 01/03/23 10:52 Height 5 ft 10 in Weight 397 lb BMI 57.0 BP 114/72 Blood Pressure Location Lt brachial Position Sitting Pulse 83 Intake Visit Reasons: 3 month follow up Intake Note: 3 month follow-up c/o chest pain Branch Account Executive Required: No Retail Presentation Specialist: Retail Presentation Specialist Present Accompanied by: Spouse Allergies Penicillins Adverse Reaction (Intermediate, Verified 09/15/22 13:33) HALLUCINATIONS, SWEATS Medication List - Last Reconciled 01/03/23 by Reji Bailey MD allopurinol 300 mg PO DAILY amlodipine 5 mg PO DAILY@1200 apixaban (Eliquis) 5 mg PO BID 30 days ascorbic acid (vitamin C) (Vitamin C) 1,000 mg PO BID cefuroxime axetil 500 mg PO BID cholecalciferol (vitamin D3) 50 mcg PO DAILY cyanocobalamin (vitamin B-12) 200 mcg PO DAILY empagliflozin (Jardiance) 10 mg PO DAILY insulin aspart U-100 (Novolog U-100 Insulin aspart) 16 units subcut DAILY@1200 insulin aspart U-100 (Novolog U-100 Insulin aspart) 20 units subcut DAILY@1630 insulin aspart U-100 (Novolog U-100 Insulin aspart) 8 units subcut DAILY@0800 insulin glargine (Lantus Solostar U-100 Insulin) 28 units subcut BEDTIME@2100 methenamine hippurate 1 g PO BID rosuvastatin 40 mg PO BEDTIME tamsulosin 0.4 mg PO BEDTIME torsemide 60 mg (3 x 20 mg) PO DAILY 90 days HPI HPI Comments History of Present Illness Details Geovanni comes for follow-up. About a week to week and half ago increases torsemide to 60 mg daily because he started noticing precordial pressure which she says is sign for heart failure as is leg edema and increased weight. Since then he has now with lost much weight but he seems to be feeling better. He says his leg edema is improving. He denies any abdominal distension. Denies any clear orthopnea although he sleeps in a recliner. He denies any lightheadedness, syncope. No bleeding issues or neurologic events. No bleeding issues or neurologic events. [facility] Medical History Morbid obesity Chronic atrial fibrillation History of ESBL E. 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 Hypertension Diabetes Kidney disease Social History Household Members: Spouse Housing: House Alcohol intake: never Patient Tobacco Use Status: Never used Tobacco Advance Directives Date on File: 05/16/22 service: Yes Current occupational status: retired Review of Systems Const Denies chills, Denies fatigue, Denies fever(s), Denies frequent falls, Denies weakness, Denies weight gain and Denies weight loss ENT Denies dizziness Card Denies chest pain, Denies leg edema, Denies lightheadedness, Denies palpitations, Denies dyspnea, Denies dyspnea on exertion, Denies orthopnea and Denies other (loss of consciousness) Resp Denies cough, Denies dyspnea and Denies dyspnea on exertion GI Denies hematochezia and Denies change in stool character Musc Denies abnormal gait, Denies muscle weakness, Denies numbness, Denies radiating pain into limb and Denies tingling Neuro Denies abnormal gait, Denies dizziness, Denies frequent falls, Denies numbness, Denies tingling and Denies weakness Endo Denies fatigue and Denies palpitations Physical Exam Vital Signs: Last Vital Signs Pulse 83 01/03/23 10:52 BP 114/72 01/03/23 10:52 BMI result Body Mass Index 57.0 Const Other: Morbidly obese General: cooperative, healthy appearing, comfortable and no acute distress Orientation/consciousness: patient oriented x3 Neck Neck: Yes normal visual inspection Resp Effort & Inspection: normal respiratory effort Auscultation: clear to auscultation bilaterally, no crackles, no rales, no rhonchi and no wheezes Cardio Jugular venous distension: no JVD Rate: regular rate Rhythm: regular rhythm Heart sounds: S1 normal heart sound present, S2 normal heart sound present, no murmurs and no rubs Neuro General: patient oriented x3 and no focal motor deficits Extrem Other: Bilateral lower leg swelling with redness to skin. Patient reports improved since hospital admission General: No clubbing, No cyanosis and Yes edema (Three to 4+ below knee edema) Psych Appearance: grossly normal Mental Status: mental status grossly normal Speech and movement: Normal speech and movement present Assessment & Plan Assessment & Plan (1) Heart failure with preserved ejection fraction: Code(s): I50.30 - Unspecified diastolic (congestive) heart failure Plan: Heart failure with preserved ejection fraction in this gentleman with multiple comorbidities including morbid obesity, poor functional status, chronic atrial fibrillation, chronic kidney disease. Is very difficult to assess volume status on him given his body habitus. We discussed I think that he would benefit from CardioMEMS device to manage his fluid status and optimized heart failure management. I think this would significantly improve heart failure management and avoid hospitalizations the future. This was discussed with him. I did provide him with literature. He wants to think about it. Continue current torsemide dose. Daily weight monitoring avoidance of salt loading was discussed. If he gains further weight he might need further up titration of torsemide and/or adding of metolazone p.r.n. to his regimen to manage his heart failure syndrome. Advised to monitor his renal function closely probably on a monthly basis. Overall prognosis is guarded. He has NYHA class 3 for heart failure. Continue Jardiance for heart failure management as well. (2) Chronic atrial fibrillation: Code(s): I48.20 - Chronic atrial fibrillation, unspecified Plan: Chronic atrial fibrillation which is currently rate controlled. Continue rate control strategy. Continue full oral anticoagulation, currently on Eliquis 5 mg b.i.d.. Renal function tests regularly as above. Will follow up in the clinic in 3 months time, sooner p.r.n.. Thank you for allowing me to partake in his care Medications: Changed From cefuroxime axetil 500 mg PO BID 10 tabs 0RF To cefuroxime axetil 500 mg PO BID Coding Level of Care Code Est Pt Level 4 (29944) Diagnoses Heart failure with preserved ejection fraction I50.30 Chronic atrial fibrillation I48.20
[2023-01-03 10:52] VITALS: BP 114/72; PULSE 83; BMI 57.0
== END 2023-01-03 11:22 | disposition home or self-care (01) ==
PROVIDERS: PCP Internal Medicine; Visit Provider Internal Medicine Cardiovascular Disease
DX: I50.30 Unspecified diastolic (congestive) heart failure (principal); I48.20 Chronic atrial fibrillation, unspecified
CPT/HCPCS: 99214

== ENCOUNTER → 2023-01-03 10:50 | Outpatient (BNVA) | payer OTHER, MEDICARE, SELFPAY | PROVIDERS: PCP Internal Medicine; Visit Provider Internal Medicine Cardiovascular Disease | DX: I50.30 Unspecified diastolic (congestive) heart failure (principal); I48.20 Chronic atrial fibrillation, unspecified; Z79.01 Long term (current) use of anticoagulants; Z79.899 Other long term (current) drug therapy | CPT/HCPCS: 99212 ==

== ENCOUNTER 2023-02-13 14:38 | Emergency (ER) | payer OTHER, SELFPAY ==
--- NOTE | ~2023-02-13 | XR_ITS ---
EXAMINATION: XR CHEST CLINICAL INFORMATION: Epigastric pain COMPARISON: Chest x-ray 09/07/2022 TECHNIQUE: 2 views of the chest were obtained. FINDINGS: Cardiac silhouette is mildly enlarged. The lungs are well aerated. Similar mild asymmetric elevation the right hemidiaphragm. There is no lobar consolidation. No pleural effusion or pneumothorax. Moderate degenerative changes of the spine. XR/XR chest 2V IMPRESSION: No acute pulmonary pathology.
--- NOTE | ~2023-02-13 | US_ITS ---
EXAMINATION: US ABDOMEN LIMITED CLINICAL INFORMATION: Elevated liver function tests. COMPARISON: 05/03/2022 CT scan TECHNIQUE: Real-time imaging of the right upper quadrant abdominal viscera. The examination is limited due to patient's body habitus. FINDINGS: PANCREAS: Obscured by overlying bowel gas LIVER: There is increased echotexture to the liver with attenuation of sound beam suggesting a component of diffuse fatty infiltration but this limits assessment along with the patient's body habitus. I do not appreciate any gross hepatic lesion or biliary ductal dilatation on this limited study. GALLBLADDER: Not able to be visualized. COMMON BILE DUCT: Possibly seen and where visualized appears normal in caliber measuring 0.4 cm in diameter. RIGHT KIDNEY: Again very difficult to visualize. No hydronephrosis. No renal calculi or focal parenchymal lesions. The kidney measures 11.7 cm in maximum dimension. FREE FLUID: None. US/US abdomen limited IMPRESSION: Very limited examination due to patient's body habitus. There is increased echotexture to the liver with attenuation of sound beam suggesting a component of diffuse fatty infiltration but this limits assessment. I do not appreciate any gross hepatic lesion or biliary ductal dilatation.
--- NOTE | ~2023-02-13 | CT_ITS ---
EXAMINATION: CT ABDOMEN AND PELVIS WITHOUT CONTRAST CLINICAL INFORMATION: Question pancreatic mass or common bile duct stone. Elevated liver function tests. COMPARISON: Previous CT of the abdomen and pelvis April 2022 and abdominal ultrasound from earlier the same day TECHNIQUE: Multidetector volumetric imaging was performed from the superior aspect of the liver through the pubic symphysis. Sagittal and coronal reformatted images were obtained on the technologist's workstation. This CT examination was performed using dose optimization techniques as appropriate, variously including the following: *Automated exposure control *Adjustment of mA and/or kV according to patient size (this includes techniques or standardized protocols for targeted exams where dose is matched to indication/reason for exam; i.e. extremities or head) *Use of iterative reconstruction technique DLP: 165 mGy-cm FINDINGS: LUNG BASES: The visualized lung bases are unremarkable. LIVER, GALLBLADDER, AND BILIARY TREE: The liver is normal in size, shape, and attenuation. No focal hepatic lesion or intrahepatic biliary ductal dilatation is present. The gallbladder is unremarkable. The common bile duct is upper normal in size measuring 8 to 9 mm. PANCREAS: There is question of a 1 cm high attenuation lesion in the uncinate process of the head of the pancreas versus something in the adjacent bowel/duodenum. There is fatty lesion of the pancreas duct does not appear dilated SPLEEN: Unremarkable. ADRENAL GLANDS: 2 x 3 cm lesion exophytic to the anterior limb of the right adrenal gland and adjacent to the right hemidiaphragm adequate liver. This is similar to recent previous exams however gradually increasing in size for example measuring 1.3 x 2 cm November 2019. The left adrenal gland is KIDNEYS AND URETERS: The kidneys are normal in size, shape, and attenuation. No hydronephrosis, hydroureter, or calculi seen. Bilateral renal cysts. No imaging follow-up recommended. No perinephric stranding. BLADDER: Area or bladder diverticulum. GASTROINTESTINAL TRACT: Diverticulosis of the colon. The small and large bowel are otherwise unremarkable. The appendix is unremarkable. ABDOMINAL WALL: No significant hernia is appreciated. LYMPH NODES: Small retroperitoneal lymph nodes in the abdomen and pelvis in small bilateral inguinal lymph nodes. VASCULAR: Unremarkable. PELVIC VISCERA: Unremarkable. OSSEOUS STRUCTURES: Degenerative changes of the spine and. Old right rib fracture. CT/CT abdomen pelvis wo IV con IMPRESSION: Upper normal size common bile duct measuring 8 to 9 mm. Question 1 cm high attenuation lesion in the uncinate process of the head of the pancreas versus something in the duodenum. Gradual increase in size in now 2 x 3 cm nodule exophytic to the posterior limb of the right adrenal gland. These findings could be further evaluated with follow-up MRI. Diverticulosis. No evidence of diverticulitis. Fleischner guidelines were followed.
--- NOTE | 2023-02-13 14:59 | ED_ITS ---
HPI - General Adult General Chief complaint: Abdominal Pain Stated complaint: [facility] Time Seen by Provider: 02/13/23 16:22 Source: patient Mode of arrival: ambulatory Limitations: no limitations History of Present Illness HPI narrative: Patient obese with history of hypertension, diabetes , CKD, atrial fibrillation on Eliquis comes in for epigastric pain for last 2 weeks with nausea lack of appetite lost about 9 lb pain is dull pain localized in the epigastric radiation still with nausea does not feel hungry no relation with food no fever no chills no history of alcohol use no history of similar pain in the past patient does have 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, no history of prostate cancer Related Data Home Medications Medication Instructions Recorded Confirmed allopurinol 300 mg tablet 300 mg PO DAILY 11/03/20 01/03/23 ascorbic acid (vitamin C) 1,000 mg 1,000 mg PO BID 11/03/20 01/03/23 tablet (Vitamin C) cholecalciferol (vitamin D3) 50 50 mcg PO DAILY 11/03/20 01/03/23 mcg (2,000 unit) capsule insulin aspart U-100 100 unit/mL 16 unit subcut DAILY@1200 11/03/20 01/03/23 subcutaneous solution (Novolog U-100 Insulin aspart) insulin aspart U-100 100 unit/mL 20 unit subcut DAILY@1630 11/03/20 01/03/23 subcutaneous solution (Novolog U-100 Insulin aspart) methenamine hippurate 1 gram tablet 1 g PO BID 11/03/20 01/03/23 tamsulosin 0.4 mg capsule 0.4 mg PO BEDTIME 11/03/20 01/03/23 cyanocobalamin (vitamin B-12) 100 200 mcg PO DAILY 05/02/22 01/03/23 mcg tablet insulin glargine 100 unit/mL (3 28 unit subcut BEDTIME@2100 05/02/22 01/03/23 mL) subcutaneous pen (Lantus Solostar U-100 Insulin) rosuvastatin 40 mg tablet 40 mg PO BEDTIME 05/02/22 01/03/23 amlodipine 5 mg tablet 5 mg PO DAILY@1200 08/02/22 01/03/23 insulin aspart U-100 100 unit/mL 8 unit subcut DAILY@0800 08/02/22 01/03/23 subcutaneous solution (Novolog U-100 Insulin aspart) cefuroxime axetil 500 mg tablet 500 mg PO BID 01/03/23 01/03/23 Previous Rx's Medication Instructions Recorded apixaban 5 mg tablet (Eliquis) 5 mg PO BID 30 days #60 tabs 03/26/20 empagliflozin 10 mg tablet 10 mg PO DAILY #30 tabs 08/10/22 (Jardiance) torsemide 20 mg tablet 60 mg (3 x 20 mg) PO DAILY 90 days 09/16/22 #270 tabs pantoprazole 40 mg tablet,delayed 40 mg PO DAILY #30 tabs 02/13/23 release (Protonix) Allergies Allergy/AdvReac Type Severity Reaction Status Date / Time Penicillins AdvReac Intermediate HALLUCINATIONS, Verified 09/15/22 13:33 SWEATS Review of Systems 2 Review of Systems: Yes all other systems are reviewed and are negative [facility] Past Medical History Medical History Acute UTI Diabetes Morbid obesity Chronic atrial fibrillation History of ESBL E. 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 Hypertension Kidney disease Social History Social History Household Members: Spouse Housing: House Alcohol intake: never Patient Tobacco Use Status: Never used Tobacco Smoked in Last 30 Days: No Use of substances other than those prescribed or required for medical reasons: No Advance Directives: Yes Advance Directives on File: Yes Advance Directives Date on File: 05/16/22 service: Yes Current occupational status: retired Physical Exam ED Vital Signs: Vital Signs - 24 hr 02/13/23 15:01 02/13/23 16:28 02/13/23 20:16 Temperature 98.0 F 98.2 F Pulse Rate 83 86 76 Respiratory Rate 18 20 20 Blood Pressure 151/68 H 158/66 H 164/76 H Pulse Oximetry 98 98 99 Oxygen Delivery Method Room Air Room Air Room Air BMI result Body Mass Index 57.0 Appearance: Alert. Oriented X3. No acute distress. Obese Eyes: PERRLA, No Nystagmus no pallor or icterus ENT: Pharynx normal. Oral Mucosa moist Neck: Normal inspection. Neck supple. CVS: Normal heart rate and rhythm. Pulses normal. Respiratory: No respiratory distress. Equal air entry bilateral, no wheezing/rales/rhonchi Abdomen: Soft and dip tenderness epigastric area, Bowel sounds are present, no mass palpable, no CVA tenderness Skin: Skin warm and dry. Normal skin color. Normal skin turgor. Extremities: No lower extremity edema. No calf tenderness Neuro: Oriented X 3. No motor deficit. Course Course Course Narrative: RME performed by Martha Mijares PA-C. Patient is a 72 year old assigned male at presenting to the emergency department with diarrhea and RLQ abdominal pain. Labs and swabs ordered. Patient placed back in the waiting room pending room availability and results. Medications Administered Discontinued Medications Generic Name Dose Route Start Last Admin Trade Name Freq PRN Reason Stop Dose Admin Famotidine 20 mg 02/13/23 16:46 02/13/23 16:53 Famotidine/Pf 20 Mg/2 Ml Vial IVPUSH 02/13/23 16:47 20 mg ONCE ONE Administration Sodium Chloride 1,000 mls @ 999 mls/hr 02/13/23 16:46 02/13/23 18:50 Ns IV 02/13/23 17:46 Infused .Q1H1M ONE Infusion Ondansetron HCl 4 mg 02/13/23 16:46 02/13/23 16:53 Ondansetron Hcl 4 Mg/2 Ml Vial IVPUSH 02/13/23 16:47 4 mg ONCE ONE Administration Medical Decision Making Medical Decision Making [facility] Narrative: Patient with mid abdominal epigastric pain with weight loss lab workup showed elevated liver functions with elevated alkaline phosphatase likely from pancreatic mass/cancer ultrasound negative for gallstones CT scan also negative for gallstone shows hyperdense lesion pancreatic head. Patient advised to follow-up with PCP further management Differential Diagnosis Differential Diagnoses: The differential diagnosis associated with the presentation includes Pancreatic cancer/pancreatic mass/gallstones/gastritis Admission/Observation Consideration of admission/observation: Escalation of care including admission/observation considered Lab Data [facility] Lab Attestation statement: I reviewed the patient's lab results. 02/13/23 15:13 02/13/23 15:13 Labs: Lab Results 02/13/23 02/13/23 02/13/23 Range/Units 15:13 17:01 19:20 WBC 10.2 (4.8-10.8) X10*3/uL RBC 5.22 (4.60-5.80) X10*6/uL Hgb 14.1 (14.0-18.0) g/dl Hct 45.1 (42.0-52.0) % MCV 86.4 (80.0-98.0) fL MCH 27.0 (27.0-33.0) pg MCHC 31.3 (31.0-36.0) g/dl RDW 17.0 H (11.0-16.0) % Plt Count 221 (160-400) X10*3/uL MPV 10.8 (9.4-12.4) fL Immature Gran % (Auto) 0.4 (0.0-0.4) % Neut % (Auto) 79.8 H (45-73) % Lymph % (Auto) 9.0 L (20-40) % [place] % (Auto) 7.1 (2-11) % Eos % (Auto) 3.5 (0-4) % Baso % (Auto) 0.2 (0-2) % Lymph # (Auto) 0.9 L (1.2-4.9) X10*3/uL [place] # (Auto) 0.7 (0.1-1.2) X10*3/uL Eos # (Auto) 0.4 (0.0-0.4) X10*3/uL Baso # (Auto) 0.0 (0.0-0.2) X10*3/uL Abs Immat Gran (auto) 0.04 H (0.00-0.03) X10*3/uL Absolute Neuts (auto) 8.1 (2.0-8.3) x10*3/uL Absolute Nucleated RBC 0.000 (0.0-0.012) X10*3/uL Nucleated RBC % (auto) 0.0 (0.0-0.2) /100WBC PT 16.5 H (11.1-13.3) SEC INR 1.4 H (0.9-1.1) APTT 43.7 H (26.0-36.4) SEC Sodium 141 (135-145) mmol/L Potassium 3.4 (3.3-5.1) mmol/L Chloride 101 (96-108) mmol/L Carbon Dioxide 29 (22-29) mmol/L Anion Gap 14 (12-20) BUN 36 H (9-16) mg/dL Creatinine 2.16 H (0.5-1.4) mg/dL Estim Creat Clear Calc 49.1 Estimated GFR 30 POC Glucose 191 H (60-115) mg/dL Random Glucose 176 H (60-115) mg/dL Calcium 8.9 (8.4-10.2) mg/dL Magnesium 2.2 (1.6-2.6) mg/dL Total Bilirubin 1.3 H (0.0-1.0) mg/dL AST 101 H (5-37) U/L ALT 149 H (0-40) U/L Alkaline Phosphatase 774 H (39-117) U/L Troponin I High Sens 27.0 D (<3.5-35.0) ng/L Total Protein 7.7 (6.5-8.0) g/dL Albumin 3.7 (3.5-5.0) g/dL Lipase 26 (8-78) U/L Urine Color Yellow Urine Appearance Cloudy Urine pH 5.5 (5.0-9.0) Ur Specific [place] 1.010 (1.005-1.025) Urine Protein 100 (2+) H (Neg-Trace) mg/dL Urine Glucose (UA) 500 H (Negative) mg/dL Urine Ketones Negative (Negative) mg/dL Urine Blood Small (1+) H (Negative) Urine Nitrite Negative (Negative) Ur Leukocyte Esterase Small (1+) H (Negative) Urine RBC 0-2 (0-2) /HPF Urine WBC >50 H (0-5) /HPF Ur Squamous Epith Cells 0-2 (0-2) /HPF Urine Bacteria 4+ (None Seen) Hyaline Casts 0-2 (0-2) /LPF Influenza Type A (PCR) NEGATIVE (Negative) Influenza Type B (PCR) NEGATIVE (Negative) RSV RNA Qual (PCR) NEGATIVE (Negative) SARS-CoV-2 RNA (RT-PCR) NEGATIVE (Negative) Independent Interpretation I performed an independent interpretation of an: CT Scan Radiology Impression Discussion of test interpretation with radiology: I have reviewed the radiologist's reading. Radiologist Impression: CT/CT abdomen pelvis wo IV con IMPRESSION: Upper normal size common bile duct measuring 8 to 9 mm. Question 1 cm high attenuation lesion in the uncinate process of the head of the pancreas versus something in the duodenum. Gradual increase in size in now 2 x 3 cm nodule exophytic to the posterior limb of the right adrenal gland. These findings could be further evaluated with follow-up MRI. Diverticulosis. No evidence of diverticulitis. Fleischner guidelines were followed. Discharge Plan Discharge Clinical Impression: Epigastric abdominal pain, Mass of head of pancreas Patient Disposition: Home, Self-Care Instructions: Pancreatic Cancer (DC), Epigastric Pain (ED) Additional Instructions: There is a questionable 1 cm lesion in head of the pancreas which could be cancer , need MRI for further evaluation to confirm Follow-up with PCP and favor maker Protonix for acid reflux for now Prescriptions: New pantoprazole [Protonix] 40 mg tablet,delayed release (DR/EC) 40 mg PO DAILY Qty: 30 0RF No Action Eliquis 5 mg tablet 5 mg PO BID 30 Days Qty: 60 5RF methenamine hippurate 1 gram Tablet 1 g PO BID tamsulosin 0.4 mg Capsule 0.4 mg PO BEDTIME insulin aspart U-100 [Novolog U-100 Insulin aspart] 100 unit/mL Solution 16 unit SUBCUT DAILY@1200 insulin aspart U-100 [Novolog U-100 Insulin aspart] 100 unit/mL Solution 20 unit SUBCUT DAILY@1630 ascorbic acid (vitamin C) [Vitamin C] 1,000 mg Tablet 1,000 mg PO BID allopurinol 300 mg Tablet 300 mg PO DAILY cholecalciferol (vitamin D3) 50 mcg (2,000 unit) Capsule 50 mcg PO DAILY insulin glargine [Lantus Solostar U-100 Insulin] 100 unit/mL (3 mL) Insulin Pen 28 unit SUBCUT BEDTIME@2100 cyanocobalamin (vitamin B-12) 100 mcg Tablet 200 mcg PO DAILY rosuvastatin 40 mg Tablet 40 mg PO BEDTIME insulin aspart U-100 [Novolog U-100 Insulin aspart] 100 unit/mL Solution 8 unit SUBCUT DAILY@0800 amlodipine 5 mg Tablet 5 mg PO DAILY@1200 Jardiance 10 mg Tablet 10 mg PO DAILY Qty: 30 0RF torsemide 20 mg tablet 60 mg PO DAILY 90 Days Qty: 270 1RF cefuroxime axetil 500 mg tablet 500 mg PO BID Referrals: Aakash Rivera MD [Physician] - 1 week
[2023-02-13 15:01] VITALS: BP 151/68; PULSE 83; RESP 18; TEMP 36.7; O2SAT 98; BMI 57.0
[2023-02-13 15:20] LABS: MANUAL DIFF FLAG NO
[2023-02-13 15:24] LABS: Basophils Percent Auto 0.2 % (0-2); Eosinophils Absolute Auto 0.4 X10*3/uL (0.0-0.4); Eosinophils Percent Auto 3.5 % (0-4); Hematocrit 45.1 % (42.0-52.0); Hemoglobin 14.1 g/dl (14.0-18.0); Imm Gran Abs Auto 0.04 X10*3/uL (0.00-0.03); Imm Gran Pct Auto 0.4 % (0.0-0.4); Lymphocytes Absolute Auto 0.9 X10*3/uL (1.2-4.9); Mean Corpuscular HGB Conc 31.3 g/dl (31.0-36.0); Mean Corpuscular Volume 86.4 fL (80.0-98.0); Mean Platelet Volume 10.8 fL (9.4-12.4); Monocytes Absolute Auto 0.7 X10*3/uL (0.1-1.2); Monocytes Percent Auto 7.1 % (2-11); Neutrophils Absolute Auto 8.1 x10*3/uL (2.0-8.3); Neutrophils Percent Auto 79.8 % (45-73); Platelet Count 221 X10*3/uL (160-400); Red Blood Count 5.22 X10*6/uL (4.60-5.80); White Blood Count 10.2 X10*3/uL (4.8-10.8)
[2023-02-13 15:28] LABS: INTERNATIONAL NORM RATIO 1.4 (0.9-1.1); Prothrombin Time 16.5 SEC (11.1-13.3)
[2023-02-13 15:30] LABS: Partial Thromboplastin Time 43.7 SEC (26.0-36.4)
[2023-02-13 15:38] LABS: Alanine Aminotransferase 149 U/L (0-40); Albumin Level 3.7 g/dL (3.5-5.0); Alkaline Phosphatase 774 U/L (39-117); Anion Gap 14 (12-20); Aspartate Amino Transferase 101 U/L (5-37); Bilirubin Total 1.3 mg/dL (0.0-1.0); Blood Urea Nitrogen 36 mg/dL (9-16); Calcium 8.9 mg/dL (8.4-10.2); Carbon Dioxide 29 mmol/L (22-29); Chloride 101 mmol/L (96-108); Creatinine Clr Calc Pharmacy 49.1; Estimated Glomerular Filt Rate 30; Glucose Random 176 mg/dL (60-115); Lipase 26 U/L (8-78); Magnesium 2.2 mg/dL (1.6-2.6); Potassium 3.4 mmol/L (3.3-5.1); Sodium 141 mmol/L (135-145); Total Protein 7.7 g/dL (6.5-8.0)
[2023-02-13 15:59] LABS: Influenza A PCR NEGATIVE (Negative); Influenza B PCR NEGATIVE (Negative); Resp Syncy Virus RNA Qual PCR NEGATIVE (Negative); SARS COV2 PCR INHOUSE NEGATIVE (Negative)
[2023-02-13 16:28] VITALS: BP 158/66; PULSE 86; RESP 20; O2SAT 98
--- NOTE | 2023-02-13 16:33 | PC.NURSE ---
pt is alert and oriented, skin pwd, respirations even and unlabored, pt reports having upper/mid abd pain-feels like pressure/ and nausea, denies diarrhea for about 2-3 weeks pain goes on and off and pain traveling up to the left chest area. abd soft and non-tender and bowel sounds in all 4 quadrants, vs stable
[2023-02-13] MEDS: ondansetron HCL 4 MG/2 ML VIAL IVPUSH (16:53)
[2023-02-13] MEDS: Famotidine/PF 20 MG/2 ML VIAL IVPUSH (16:53)
[2023-02-13] MEDS: 0.9 % Sodium Chloride 1,000 ML 999 ML IV (16:53)
[2023-02-13 17:27] LABS: Appearance Urine Cloudy; Color Urine Yellow; Glucose Urine UA 500 mg/dL (Negative); Leukocyte Esterase Urine Small (1+) (Negative); Nitrite Urine Negative (Negative); PH 5.5 (5.0-9.0); UMIC TRIGGER UACC YES; Urine Blood Small (1+) (Negative); Urine Ketones Negative (Negative); Urine Protein 100 (2+) mg/dL (Neg-Trace)
[2023-02-13 17:46] LABS: Bacteria Urine 4+ (None Seen); Hyaline Casts Urine 0-2 /LPF (0-2); RBC Urine 0-2 /HPF (0-2); Squamous Epithelial Cell Urine 0-2 /HPF (0-2); UACC Culture Trigger YES; WBC Urine >50 /HPF (0-5)
--- NOTE | 2023-02-13 18:41 | PC.NURSE ---
pt reports feeling a little better, denies nausea while laying down in bed
[2023-02-13 19:25] LABS: Glucose, Whole Blood 191 mg/dL (60-115)
[2023-02-13 20:16] VITALS: BP 164/76; PULSE 76; RESP 20; TEMP 36.8; O2SAT 99
== END 2023-02-14 06:29 | disposition home or self-care (01) ==
PROVIDERS: Physician Assistant Medical; Emergency Provider Internal Medicine; PCP Internal Medicine
DX: R10.13 Epigastric pain (principal); Q45.3 Other congenital malformations of pancreas and pancreatic duct; R10.31 Right lower quadrant pain; R11.0 Nausea; E11.22 Type 2 diabetes mellitus with diabetic chronic kidney disease; I12.9 Hypertensive chronic kidney disease with stage 1 through stage 4 chronic kidney disease, or unspecified chronic kidney disease; N18.9 Chronic kidney disease, unspecified; I48.91 Unspecified atrial fibrillation; R19.7 Diarrhea, unspecified; Z79.01 Long term (current) use of anticoagulants; Z20.822 Contact with and (suspected) exposure to COVID-19; Z20.828 Contact with and (suspected) exposure to other viral communicable diseases
CPT/HCPCS: 0241U; 36415; 71046; 74176; 76705; 80053; 81001; 82947; 83690; 83735; 84484; 85025; 85610; 85730; 87086; 87088; 87186; 96361; 96374; 96375; 99284; J2405

== ENCOUNTER 2023-03-30 11:08 | Inpatient (IN) | payer OTHER, MEDICARE, SELFPAY ==
[2023-03-30] VITALS (7 sets, daily range): BP systolic 114–140; BP diastolic 50–74; PULSE 68–84; RESP 18; TEMP 36.1–36.7; O2SAT 99–100; BMI 52.8
--- NOTE | ~2023-03-30 | FL_ITS ---
EXAMINATION: XR FLUOROSCOPY WITH IMAGES CLINICAL INFORMATION: ERCP. COMPARISON: Previous CT most recent March 2023 TECHNIQUE: Fluoroscopy Supervised By: Dr. Mayank Lange. Fluoroscopy Time: 293.3 seconds. Cumulative Dose: 233.68 mGy. DAP: Not available on this device. Images: 4. FINDINGS: There is left-sided intrahepatic and extrahepatic biliary duct dilatation. There is question of an eccentric irregular appearing short segment stricture of the distal common bile duct image 2 and 3. Follow-up MR of the liver and pancreas with IV contrast and MRCP recommended. Final images demonstrate balloon dilatation of the common bile duct. FL/FL guidance in OR IMPRESSION: Fluoroscopy guidance for ERCP. Follow-up MR of the liver and pancreas with IV contrast and MRCP as described above recommended.
--- NOTE | ~2023-03-30 | US_ITS ---
EXAMINATION: US ABDOMEN LIMITED CLINICAL INFORMATION: Elevated alkaline phosphatase, abnormal CT. COMPARISON: 03/30/2023 and 02/13/2023 CTs. Ultrasounds from 02/13/2023 and 11/04/2019. TECHNIQUE: Real-time imaging of the right upper quadrant abdominal viscera. FINDINGS: PANCREAS: Scattered by bowel gas. LIVER: Limited evaluation of the liver. Liver appears to be diffusely echogenic with mild intrahepatic biliary ductal dilatation. GALLBLADDER: Shadowing echogenicity identified in the gallbladder fossa measuring 2.7 x 2.5 cm. No tenderness elicited during study. COMMON BILE DUCT: Enlarged at 1.9 cm. RIGHT KIDNEY: 2.8 x 2.4 x 2.4 cm mid pole cyst is seen. No hydronephrosis. No renal calculi. The kidney measures 12.6 cm in maximum dimension. FREE FLUID: None. US/US abdomen limited IMPRESSION: Intra and extrahepatic biliary ductal dilatation, common bile duct measuring 1.9 cm. Consider MRCP/ERCP. Wall echo shadow sign right upper quadrant possibly due to cholelithiasis although no calcified gallstone seen on recent CT. Echogenic liver, question hepatic steatosis.
--- NOTE | ~2023-03-30 | CT_ITS ---
EXAMINATION: CT ABDOMEN AND PELVIS WITHOUT CONTRAST CLINICAL INFORMATION: Abdominal pain and weight loss and diarrhea COMPARISON: 02/13/2023 TECHNIQUE: Multidetector volumetric imaging was performed from the superior aspect of the liver through the pubic symphysis. Sagittal and coronal reformatted images were obtained on the technologist's workstation. This CT examination was performed using dose optimization techniques as appropriate, variously including the following: *Automated exposure control *Adjustment of mA and/or kV according to patient size (this includes techniques or standardized protocols for targeted exams where dose is matched to indication/reason for exam; i.e. extremities or head) *Use of iterative reconstruction technique DLP: 1445 mGy-cm FINDINGS: LUNG BASES: The visualized lung bases are unremarkable. LIVER, GALLBLADDER, AND BILIARY TREE: Moderate hepatic steatosis. There does appear to be increasing prominence of the left biliary radicals more so today than on the prior study. Contrast was not utilized. Ultrasound would therefore be helpful. The gallbladder is somewhat oblong in orientation and there may be some intrinsic debris near the neck. Again, ultrasound would be helpful here. PANCREAS: 1 cm area of low attenuation now observed near the head of the pancreas and ampulla. A contrast-enhanced study would be helpful or at least oral contrast to better opacify the third and fourth portions of the duodenum. SPLEEN: A few tiny punctate calcifications are seen related to the splenic granulomas. ADRENAL GLANDS: 2 x 3 cm lesion exophytic off the anterior limb of the right adrenal is stable. Left adrenal normal. KIDNEYS AND URETERS: No right or left hydronephrosis. Bilateral renal cysts are stable as previously described and there is no further workup needed. BLADDER: Unremarkable. GASTROINTESTINAL TRACT: No bowel obstruction or right or left lower quadrant inflammatory change. Appendix normal. Sigmoid diverticular disease is noted without diverticulitis. ABDOMINAL WALL: No significant hernia is appreciated. LYMPH NODES: Normal. VASCULAR: Aorta atherosclerotic but nonaneurysmal. PELVIC VISCERA: Unremarkable. OSSEOUS STRUCTURES: There is advanced degenerative disc disease throughout the lumbar spine but no fracture. Old right lateral 10th rib fracture. CT/CT abdomen pelvis wo IV con IMPRESSION: There appears to be encased conspicuity of the biliary tree in the left lobe of the liver with indeterminate findings within the gallbladder pancreatic head. Contrast-enhanced study with oral or IV contrast as well as ultrasound would be advised for further workup. Fleischner guidelines were followed.
--- NOTE | ~2023-03-30 | CT_ITS ---
EXAMINATION: CT ABDOMEN AND PELVIS WITHOUT CONTRAST CLINICAL INFORMATION: abd pain increased conspicuity of billary tree. COMPARISON: 03/30/2023 CT scan earlier in the same day. TECHNIQUE: Multidetector volumetric imaging was performed from the superior aspect of the liver through the pubic symphysis now with oral contrast but no intravenous contrast. Sagittal and coronal reformatted images were obtained on the technologist workstation. This CT examination was performed using dose optimization techniques as appropriate, variously including the following: *Automated exposure control *Adjustment of mA and/or kV according to patient size (this includes techniques or standardized protocols for targeted exams where dose is matched to indication/reason for exam; i.e. extremities or head) *Use of iterative reconstruction technique DLP: 1516 mGy-cm. FINDINGS: LUNG BASES: The visualized lung bases are unremarkable. Mitral annular calcification present. LIVER, GALLBLADDER, BILIARY TREE: The non-contrast liver is normal in size, shape, and attenuation. No focal hepatic lesion. No intrahepatic ductal dilatation. The common bile duct is difficult to delineate on this study due to patient body habitus but likely measures up to 0.9 cm in diameter. The gallbladder is unremarkable with no evidence of radiopaque gallstones, gallbladder wall thickening, or obvious pericholecystic inflammatory changes. PANCREAS: Unremarkable. SPLEEN: Unremarkable. ADRENAL GLANDS: There is a soft tissue nodule directly abutting the right adrenal gland currently measuring up to 3.2 cm in size. This is not significant a change from the most recent prior studies however has increased in size from the 08/16/2019 study when it had measured 1.7 cm in maximal diameter. Contralateral left adrenal gland unremarkable KIDNEYS AND URETERS: The kidneys are normal in size, shape, and attenuation. Low-attenuation probable cysts are again seen within the kidneys difficult to define further on this noncontrast study No hydronephrosis, hydroureter, or calculi seen. No perinephric stranding. BLADDER: Unremarkable. GASTROINTESTINAL TRACT: Scattered colonic diverticulosis. No evidence for colonic wall thickening or pericolonic inflammatory change to suggest diverticulitis. The appendix is unremarkable. ABDOMINAL WALL: No significant hernia is appreciated. LYMPHOVASCULAR STRUCTURES: Prominent lymph nodes in the inguinal, iliac regions, and periaortic/pericaval retroperitoneum with fatty dominguez more likely reactive in nature. No bulky adenopathy. PELVIC VISCERA: Unremarkable. OSSEUS STRUCTURES: Altered level degenerative changes in the spine and degenerative changes in the left greater than right hips CT/CT abdomen pelvis wo IV con IMPRESSION: I do not appreciate any acute intra-abdominal process when compared to the 03/30/2023 study. There is a soft tissue nodule directly abutting the right adrenal gland currently measuring up to 3.2 cm in size. This is not significantly changed from the most recent prior studies however has increased in size from the 08/16/2019 study when it had measured 1.7 cm in maximal diameter. Fullness is again seen in the region of the common bile duct but this is difficult to define further in the study due to quantum mottling of the patient's body habitus. The oral contrast that was given is seen in the mid to distal small bowel but I do not appreciate any abnormality within the duodenum itself on the current study.
--- NOTE | 2023-03-30 11:31 | ED_ITS ---
HPI - General Adult General Chief complaint: Abdominal Pain Stated complaint: LOW ABD PAIN,DIZZY,RECENT UTI PER EMS Time Seen by Provider: 03/30/23 11:28 Source: patient Mode of arrival: ambulatory Limitations: no limitations History of Present Illness HPI narrative: 72-year-old male history of CHF, atrial fibrillation anticoagulated on apixaban, diabetes, kidney disease, lymphedema presenting to the emergency department for evaluation of fatigue, malaise, myalgias, dizziness, diarrhea, suprapubic abdominal pain, dysuria, incomplete voiding, urinary frequency and urgency times a few days worsening. Lost 15 lbs in the past month. Scheduled to see GI, last colonoscopy 6 months ago. Denies fevers, chills,cp, sob, nausea, vomiting, suarez, vision changes Related Data Home Medications Medication Instructions Recorded Confirmed allopurinol 300 mg tablet 300 mg PO DAILY 11/03/20 01/03/23 ascorbic acid (vitamin C) 1,000 mg 1,000 mg PO BID 11/03/20 01/03/23 tablet (Vitamin C) cholecalciferol (vitamin D3) 50 50 mcg PO DAILY 11/03/20 01/03/23 mcg (2,000 unit) capsule insulin aspart U-100 100 unit/mL 16 unit subcut DAILY@1200 11/03/20 01/03/23 subcutaneous solution (Novolog U-100 Insulin aspart) insulin aspart U-100 100 unit/mL 20 unit subcut DAILY@1630 11/03/20 01/03/23 subcutaneous solution (Novolog U-100 Insulin aspart) methenamine hippurate 1 gram tablet 1 g PO BID 11/03/20 01/03/23 tamsulosin 0.4 mg capsule 0.4 mg PO BEDTIME 11/03/20 01/03/23 cyanocobalamin (vitamin B-12) 100 200 mcg PO DAILY 05/02/22 01/03/23 mcg tablet insulin glargine 100 unit/mL (3 28 unit subcut BEDTIME@2100 05/02/22 01/03/23 mL) subcutaneous pen (Lantus Solostar U-100 Insulin) rosuvastatin 40 mg tablet 40 mg PO BEDTIME 05/02/22 01/03/23 amlodipine 5 mg tablet 5 mg PO DAILY@1200 08/02/22 01/03/23 insulin aspart U-100 100 unit/mL 8 unit subcut DAILY@00 08/02/22 01/03/23 subcutaneous solution (Novolog U-100 Insulin aspart) cefuroxime axetil 500 mg tablet 500 mg PO BID 01/03/23 01/03/23 Previous Rx's Medication Instructions Recorded apixaban 5 mg tablet (Eliquis) 5 mg PO BID 30 days #60 tabs 03/26/20 empagliflozin 10 mg tablet 10 mg PO DAILY #30 tabs 08/10/22 (Jardiance) torsemide 20 mg tablet 60 mg (3 x 20 mg) PO DAILY 90 days 09/16/22 #270 tabs pantoprazole 40 mg tablet,delayed 40 mg PO DAILY #30 tabs 02/13/23 release (Protonix) cefuroxime axetil 250 mg tablet 250 mg PO BID 7 days #14 tabs 03/03/23 Allergies Allergy/AdvReac Type Severity Reaction Status Date / Time Penicillins AdvReac Intermediate HALLUCINATIONS, Verified 09/15/22 13:33 SWEATS Review of Systems 2 Review of Systems: Constitutional : No Weight loss, No Fever, No Chills, + Fatigue, + Malaise ENT/Mouth : No sore throat, No Rhinorrhea Eyes: No Eye Pain, No Swelling, No Redness Cardiovascular : No Chest Pain, No SOB, No Dyspnea on Exertion, No Orthopnea, No Edema, No Palpitations Respiratory : No Cough, No Sputum, No Wheezing Gastrointestinal : No Nausea, No Vomiting, + Diarrhea, No Constipation, + abdominal Pain, No Hematochezia, No Melena Genitourinary : + Dysuria, + Urinary Frequency, No Hematuria, Musculoskeletal : No joint pain, No Myalgias, No Joint Swelling Skin : No Skin Lesions, No rash Neuro : No Weakness, No Numbness, No Dizziness, No Headache Psych : No Anxiety/Panic, No Depression All other systems reviewed and are negative Yes all other systems are reviewed and are negative [facility] Past Medical History Medical History Acute UTI Diabetes Morbid obesity Chronic atrial fibrillation History of ESBL E. 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 Hypertension Kidney disease Social History Social History Household Members: Spouse Housing: House Alcohol intake: never Comment: pt refuses Patient Tobacco Use Status: Never used Tobacco Smoked in Last 30 Days: No Use of substances other than those prescribed or required for medical reasons: No Advance Directives: Yes Advance Directives Date on File: 05/16/22 service: Yes Current occupational status: retired Physical Exam ED Vital Signs: Vital Signs - 24 hr 03/30/23 11:36 03/30/23 11:58 03/30/23 11:58 Temperature 98.1 F Pulse Rate 78 72 73 Respiratory Rate 18 Blood Pressure 131/64 136/67 140/50 H Pulse Oximetry 100 Oxygen Delivery Method Room Air 03/30/23 12:01 03/30/23 12:02 Temperature 98.0 F Pulse Rate 84 78 Respiratory Rate 18 Blood Pressure 114/60 136/67 Pulse Oximetry 100 Oxygen Delivery Method Room Air BMI result Body Mass Index 52.8 vss Appearance: Alert.? Oriented X3.? No acute distress.? Head: Normocephalic, atraumatic, no step-offs or deformities Eyes: Pupils equal, round and reactive to light.? Neck: Normal inspection.? Neck supple.? CVS: Normal heart rate and rhythm.? Pulses normal.? Respiratory: No respiratory distress.? Breath sounds normal.? Abdomen: Soft and suprapubic abdominal discomfort.? Skin: Skin warm and dry.? Normal skin color.? Normal skin turgor.? Extremities: Lip edema to bilateral lower extremity? No calf ttp. Global weakness Back: No midline tenderness, no C-spine tenderness, full range of motion, no CVA tenderness bilaterally Neuro: Oriented X 3.? No motor deficit.? No sensory deficit. CN 2-12 intact Course Reevaluation(s) Reevaluation #1: CBC with a normocytic anemia around patient's baseline, chemistry with low potassium 2.5 and acute on chronic kidney injury, IV potassium ordered, fluids ordered. Patient's magnesium also low 1.3 will replete at this time. Total bilirubin and transaminases elevated at baseline. Alk-phos also elevated at baseline. Time: 12:43 Reevaluation #2: Urine Grossly positive was treated with ceftriaxone. Abnormal ct discussed w/ surgery who will follow case recommends IV and pO contrast CT abd and pelvis which has been ordered. Plan hospital admisison hospitalist aware. Time: 15:10 Reevaluation #3: patient w/ ckd will do just oral contrast at this time . Medications Administered Generic Name Dose Route Start Last Admin Trade Name Freq PRN Reason Stop Dose Admin Potassium Chloride 10 meq in 100 mls @ 100 mls/hr 03/30/23 12:30 03/30/23 14:51 Potassium Chloride/H20 IV 03/30/23 16:29 100 mls/hr Q1H [facility] Administration Discontinued Medications Generic Name Dose Route Start Last Admin Trade Name Freq PRN Reason Stop Dose Admin Ceftriaxone Sodium 1 gm/ 50 mls @ 100 mls/hr 03/30/23 12:15 03/30/23 13:59 Sodium Chloride IV 03/30/23 12:44 Infused ONCE ONE Infusion Magnesium Sulfate 2 gm in 50 mls @ 25 mls/hr 03/30/23 12:28 03/30/23 14:52 Magnesium Sulfate/H2o IV 03/30/23 14:27 Infused ONCE ONE Infusion Medical Decision Making Medical Decision Making [facility] Narrative: 72 year old male presents for fatigue, malaise, myalgias, dizziness, diarrhea, suprapubic abdominal pain, dysuria, incomplete voiding, urinary frequency and urgency times a few days worsening. Lost 15 lbs in the past month. PE diffuse lower abd discomfort. Obese male lower extremity lymphedema History and physical exam concerning for likely UTI versus cystitis versus obstructing uropathy versus viral illness. Malignancy can not be excluded due to unintentional weight loss. No signs of acute abdomen. Will rule out metabolic derangements, anemia. Diarrhea likely viral unlikely bacterial diarrhea, C diff. Plan labs, imaging Differential Diagnosis Differential Diagnoses: The differential diagnosis associated with the presentation includes History and physical exam concerning for likely UTI versus cystitis versus obstructing uropathy versus viral illness. Malignancy can not be excluded due to unintentional weight loss. No signs of acute abdomen. Will rule out metabolic derangements, anemia. Diarrhea likely viral unlikely bacterial diarrhea, C diff. Admission/Observation Consideration of admission/observation: Escalation of care including admission/observation considered Lab Data 03/30/23 11:48 03/30/23 14:43 Labs: Lab Results 03/30/23 03/30/23 03/30/23 Range/Units 11:45 11:48 14:43 WBC 10.7 (4.8-10.8) X10*3/uL RBC 4.31 L (4.60-5.80) X10*6/uL Hgb 11.9 L (14.0-18.0) g/dl Hct 37.3 L (42.0-52.0) % MCV 86.5 (80.0-98.0) fL MCH 27.6 (27.0-33.0) pg MCHC 31.9 (31.0-36.0) g/dl RDW 17.9 H (11.0-16.0) % Plt Count 192 (160-400) X10*3/uL MPV 10.6 (9.4-12.4) fL Immature Gran % (Auto) 0.8 H (0.0-0.4) % Neut % (Auto) 84.1 H (45-73) % Lymph % (Auto) 6.3 L (20-40) % [place] % (Auto) 6.0 (2-11) % Eos % (Auto) 2.5 (0-4) % Baso % (Auto) 0.3 (0-2) % Lymph # (Auto) 0.7 L (1.2-4.9) X10*3/uL [place] # (Auto) 0.6 (0.1-1.2) X10*3/uL Eos # (Auto) 0.3 (0.0-0.4) X10*3/uL Baso # (Auto) 0.0 (0.0-0.2) X10*3/uL Abs Immat Gran (auto) 0.08 H (0.00-0.03) X10*3/uL Absolute Neuts (auto) 9.0 H (2.0-8.3) x10*3/uL Absolute Nucleated RBC 0.000 (0.0-0.012) X10*3/uL Nucleated RBC % (auto) 0.0 (0.0-0.2) /100WBC Sodium 138 141 (135-145) mmol/L Potassium 2.5 L* D 2.6 L (3.3-5.1) mmol/L Chloride 103 104 (96-108) mmol/L Carbon Dioxide 23 22 (22-29) mmol/L Anion Gap 15 18 (12-20) BUN 44 H 47 H (9-16) mg/dL Creatinine 2.90 H 2.99 H (0.5-1.4) mg/dL Estim Creat Clear Calc 36.0 34.9 Estimated GFR 21 21 Random Glucose 259 H 196 H (60-115) mg/dL Lactic Acid 0.8 (0.5-2.0) mmol/L Calcium 7.3 L D 7.4 L (8.4-10.2) mg/dL Magnesium 1.3 L* 1.8 (1.6-2.6) mg/dL Total Bilirubin 1.5 H 1.1 H (0.0-1.0) mg/dL AST 53 H 48 H (5-37) U/L ALT 54 H 53 H (0-40) U/L Alkaline Phosphatase 1092 H 956 H (39-117) U/L B-Natriuretic Peptide 109 H (<100) pg/mL Total Protein 6.8 6.5 (6.5-8.0) g/dL Albumin 3.3 L 3.3 L (3.5-5.0) g/dL Lipase 26 (8-78) U/L Urine Color Yellow Urine Appearance Turbid Urine pH 5.5 (5.0-9.0) Ur Specific [place] 1.010 (1.005-1.025) Urine Protein 30 (1+) H (Neg-Trace) mg/dL Urine Glucose (UA) 500 H (Negative) mg/dL Urine Ketones Negative (Negative) mg/dL Urine Blood Small (1+) H (Negative) Urine Nitrite Negative (Negative) Ur Leukocyte Esterase Large (3+) H (Negative) Urine RBC 0-2 (0-2) /HPF Urine WBC >50 H (0-5) /HPF Urine WBC Clumps Present Ur Squamous Epith Cells 0-2 (0-2) /HPF Urine Bacteria 4+ (None Seen) Hyaline Casts 0-2 (0-2) /LPF COVID-19 ([facility]) Negative (Negative) COVID-19 Clin Com See Note Influenza Type A (LARRY) Negative (Negative) Influenza Type B (LARRY) Negative (Negative) Influenza A & B Note See Note Independent Interpretation I performed an independent interpretation of an: CT Scan Radiology Impression Discussion of test interpretation with radiology: I have reviewed the radiologist's reading. Critical Care Time Critical Care Time Critical Care Time: Yes Total Critical Care Time: 45 Attestation: I attest to this time spent taking care of the patient, obtaining history, physical, reviewing labs, imaging, speaking to my attending, speaking to specialist. Discharge Plan Discharge Clinical Impression: Acute on chronic kidney failure, Abdominal pain, Acute UTI, Diarrhea Patient Disposition: Admitted As Inpatient Prescriptions: No Action Eliquis 5 mg tablet 5 mg PO BID 30 Days Qty: 60 5RF methenamine hippurate 1 gram Tablet 1 g PO BID tamsulosin 0.4 mg Capsule 0.4 mg PO BEDTIME insulin aspart U-100 [Novolog U-100 Insulin aspart] 100 unit/mL Solution 16 unit SUBCUT DAILY@1200 insulin aspart U-100 [Novolog U-100 Insulin aspart] 100 unit/mL Solution 20 unit SUBCUT DAILY@1630 ascorbic acid (vitamin C) [Vitamin C] 1,000 mg Tablet 1,000 mg PO BID allopurinol 300 mg Tablet 300 mg PO DAILY cholecalciferol (vitamin D3) 50 mcg (2,000 unit) Capsule 50 mcg PO DAILY insulin glargine [Lantus Solostar U-100 Insulin] 100 unit/mL (3 mL) Insulin Pen 28 unit SUBCUT BEDTIME@2100 cyanocobalamin (vitamin B-12) 100 mcg Tablet 200 mcg PO DAILY rosuvastatin 40 mg Tablet 40 mg PO BEDTIME insulin aspart U-100 [Novolog U-100 Insulin aspart] 100 unit/mL Solution 8 unit SUBCUT DAILY@0800 amlodipine 5 mg Tablet 5 mg PO DAILY@1200 Jardiance 10 mg Tablet 10 mg PO DAILY Qty: 30 0RF pantoprazole [Protonix] 40 mg tablet,delayed release (DR/EC) 40 mg PO DAILY Qty: 30 0RF cefuroxime axetil 250 mg tablet 250 mg PO BID 7 Days Qty: 14 0RF torsemide 20 mg tablet 60 mg PO DAILY 90 Days Qty: 270 1RF cefuroxime axetil 500 mg tablet 500 mg PO BID
[2023-03-30 11:54] LABS: MANUAL DIFF FLAG NO
[2023-03-30 11:56] LABS: Basophils Percent Auto 0.3 % (0-2); Eosinophils Absolute Auto 0.3 X10*3/uL (0.0-0.4); Eosinophils Percent Auto 2.5 % (0-4); Hematocrit 37.3 % (42.0-52.0); Hemoglobin 11.9 g/dl (14.0-18.0); Imm Gran Abs Auto 0.08 X10*3/uL (0.00-0.03); Imm Gran Pct Auto 0.8 % (0.0-0.4); Lymphocytes Absolute Auto 0.7 X10*3/uL (1.2-4.9); Lymphocytes Percent Auto 6.3 % (20-40); Mean Corpuscular HGB Conc 31.9 g/dl (31.0-36.0); Mean Corpuscular Hemoglobin 27.6 pg (27.0-33.0); Mean Corpuscular Volume 86.5 fL (80.0-98.0); Mean Platelet Volume 10.6 fL (9.4-12.4); Monocytes Absolute Auto 0.6 X10*3/uL (0.1-1.2); Neutrophils Percent Auto 84.1 % (45-73); Platelet Count 192 X10*3/uL (160-400); Red Blood Count 4.31 X10*6/uL (4.60-5.80); Red Cell Distribution Width 17.9 % (11.0-16.0); White Blood Count 10.7 X10*3/uL (4.8-10.8)
[2023-03-30 12:01] LABS: Appearance Urine Turbid; Color Urine Yellow; Glucose Urine UA 500 mg/dL (Negative); Leukocyte Esterase Urine Large (3+) (Negative); Nitrite Urine Negative (Negative); PH 5.5 (5.0-9.0); UMIC TRIGGER UACC YES; Urine Blood Small (1+) (Negative); Urine Ketones Negative (Negative); Urine Protein 30 (1+) mg/dL (Neg-Trace)
[2023-03-30 12:06] LABS: Lactic Acid 0.8 mmol/L (0.5-2.0)
[2023-03-30 12:09] LABS: Bacteria Urine 4+ (None Seen); Hyaline Casts Urine 0-2 /LPF (0-2); RBC Urine 0-2 /HPF (0-2); Squamous Epithelial Cell Urine 0-2 /HPF (0-2); UACC Culture Trigger YES; WBC Clumps Urine Present; WBC Urine >50 /HPF (0-5)
[2023-03-30 12:14] LABS: COVID-19 Test Negative (Negative); IDNOW Serial# BCCEAD1C
[2023-03-30 12:18] LABS: IDNOW Serial# 9DB6401D; Influenza A Negative (Negative); Influenza B2 Negative (Negative)
[2023-03-30 12:28] LABS: Alanine Aminotransferase 54 U/L (0-40); Albumin Level 3.3 g/dL (3.5-5.0); Alkaline Phosphatase 1092 U/L (39-117); Anion Gap 15 (12-20); Aspartate Amino Transferase 53 U/L (5-37); Bilirubin Total 1.5 mg/dL (0.0-1.0); Blood Urea Nitrogen 44 mg/dL (9-16); Calcium 7.3 mg/dL (8.4-10.2); Carbon Dioxide 23 mmol/L (22-29); Chloride 103 mmol/L (96-108); Estimated Glomerular Filt Rate 21; Glucose Random 259 mg/dL (60-115); Lipase 26 U/L (8-78); Magnesium 1.3 mg/dL (1.6-2.6); Potassium 2.5 mmol/L (3.3-5.1); Sodium 138 mmol/L (135-145); Total Protein 6.8 g/dL (6.5-8.0)
[2023-03-30] MEDS: cefTRIAXone sodium 1 GM in 0.9 % Sodium Chloride 50 ML IV (12:48)
[2023-03-30] MEDS: Potassium Chloride/H20 10 MEQ/100 ML PIGGYBACK 100 MEQ IV ×2 (12:48→14:51)
[2023-03-30 12:59] LABS: B Type Natriuretic Peptide 109 pg/mL (<100)
--- NOTE | 2023-03-30 13:10 | PC.NURSE ---
pt is alert and oriented, skin pwd, respirations even and unlabored, pt reports right lower abd pain and 4 days of diarrhea and intermittent nausea and pain only with having to use a bathroom and urinating, abd soft and non-tender, ns on the monitor
[2023-03-30] MEDS: Magnesium Sulfate/H2O 2 GM/50 ML PIGGYBACK IV (13:58)
[2023-03-30 15:04] LABS: Alanine Aminotransferase 53 U/L (0-40); Albumin Level 3.3 g/dL (3.5-5.0); Alkaline Phosphatase 956 U/L (39-117); Anion Gap 18 (12-20); Aspartate Amino Transferase 48 U/L (5-37); Bilirubin Total 1.1 mg/dL (0.0-1.0); Blood Urea Nitrogen 47 mg/dL (9-16); Calcium 7.4 mg/dL (8.4-10.2); Carbon Dioxide 22 mmol/L (22-29); Chloride 104 mmol/L (96-108); Creatinine Clr Calc Pharmacy 34.9; Estimated Glomerular Filt Rate 21; Glucose Random 196 mg/dL (60-115); Magnesium 1.8 mg/dL (1.6-2.6); Potassium 2.6 mmol/L (3.3-5.1); Sodium 141 mmol/L (135-145); Total Protein 6.5 g/dL (6.5-8.0)
[2023-03-30 15:12] LABS: Adenovirus F 40/41 Not Detected (Not Detect.); Astrovirus Not Detected (Not Detect.); Campylobacter Not Detected (Not Detect.); Cryptosporidium Not Detected (Not Detect.); Cyclospora cayetanensis Not Detected (Not Detect.); E. coli EAEC Not Detected (Not Detect.); E. coli EPEC Not Detected (Not Detect.); E. coli ETEC Not Detected (Not Detect.); E. coli STEC Not Detected (Not Detect.); Entamoeba histolytica Not Detected (Not Detect.); Giardia lamblia Not Detected (Not Detect.); Norovirus GI/GII Not Detected (Not Detect.); Plesiomonas shigelloides Not Detected (Not Detect.); Rotavirus A Not Detected (Not Detect.); Salmonella Not Detected (Not Detect.); Sapovirus Not Detected (Not Detect.); Shigella sp./EIEC Not Detected (Not Detect.); Vibrio Not Detected (Not Detect.); Vibrio Cholerae Not Detected (Not Detect.); Yersinia enterocolitica Not Detected (Not Detect.)
--- NOTE | 2023-03-30 15:39 | P.HPHOSP_ITS ---
History of Present Illness Date of Service: 03/30/23 Chief Complaint: Abd pain A 72 year old male w PMH of chronic afib, DM, CKD III, HTN, gout, morbid obesity, CKD IV, chronic diastolic and right sided CHF, presented with lower abdominal pain and weakness. he reports that for the last few days he has been complaining of lower abdominal pain, diarrhea , dyusrea with increase urgency. He also mentioned nausea and dyspepsia after having meals. no fever or chills, no chest pain, SOB or palpitations. His appetite has decreased and he lost 15lb over the last couple of months. He is supposed to follow with GI as outpatient for colonoscopy. In ED found to have urine infection. CT scan concerning for gallbladder problem with dilated biliary tree. admitted for further evaluation and treatment. [facility], [facility] Medical History Acute UTI Diabetes Morbid obesity Chronic atrial fibrillation History of ESBL E. 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 Hypertension Kidney disease Social History Household Members: Spouse Housing: House Alcohol intake: never Comment: pt refuses Patient Tobacco Use Status: Never used Tobacco Smoked in Last 30 Days: No Use of substances other than those prescribed or required for medical reasons: No Advance Directives: Yes Advance Directives Date on File: 05/16/22 service: Yes Current occupational status: retired Meds Allergies Allergy/AdvReac Type Severity Reaction Status Date / Time Penicillins AdvReac Intermediate HALLUCINATIONS, Verified 09/15/22 13:33 SWEATS Active Medications: Current Medications Acetaminophen (Acetaminophen 325 Mg Tablet) 650 mg PO Q6H PRN PRN Reason: Pain, Mild (Pain Scale 1-3) Sodium Chloride (Ns) 500 mls @ 500 mls/hr IV .Q1H [facility] Stop: 03/30/23 16:14 Ceftriaxone Sodium 1 gm/ (Sodium Chloride) 50 mls @ 100 mls/hr IV Q24H [facility] Insulin Glargine (Insulin Glargine,Hum.Rec.Anlog 100 Unit/Ml 10 Ml Vial) 25 unit SUBCUT BEDTIME [facility] Insulin Human Lispro (Insulin Lispro 100 Unit/Ml 3 Ml Vial) 5 unit SUBCUT QIDACHS [facility] Insulin Human Lispro (Insulin Lispro 100 Unit/Ml 3 Ml Vial) 0 unit SUBCUT [facility]; Protocol Ondansetron HCl (Ondansetron Hcl 4 Mg/2 Ml Vial) 4 mg IVPUSH Q8H PRN PRN Reason: Nausea and Vomiting Potassium Chloride (Potassium Chloride Packet 20 Meq Packet) 40 meq PO ONCE ONE Stop: 03/30/23 16:31 Sodium Chloride (0.9 % Sodium Chloride Flush 3 Ml Syringe) 3 ml IVFLUSH [facility] Home Medications Medication Instructions Recorded Confirmed Last Taken Type allopurinol 300 mg tablet 300 mg PO DAILY 11/03/20 03/30/23 03/30/23 History ascorbic acid (vitamin C) 1,000 mg 1,000 mg PO BID 11/03/20 01/03/23 09/07/22 History tablet (Vitamin C) cholecalciferol (vitamin D3) 50 50 mcg PO DAILY 11/03/20 01/03/23 09/07/22 History mcg (2,000 unit) capsule insulin aspart U-100 100 unit/mL 16 unit subcut DAILY@1200 11/03/20 01/03/23 08/02/22 History subcutaneous solution (Novolog U-100 Insulin aspart) insulin aspart U-100 100 unit/mL 20 unit subcut DAILY@1630 11/03/20 01/03/23 08/01/22 History subcutaneous solution (Novolog U-100 Insulin aspart) methenamine hippurate 1 gram tablet 1 g PO BID 11/03/20 01/03/23 09/07/22 History tamsulosin 0.4 mg capsule 0.4 mg PO BEDTIME 11/03/20 01/03/23 08/01/22 History cyanocobalamin (vitamin B-12) 100 200 mcg PO DAILY 05/02/22 01/03/23 09/07/22 History mcg tablet insulin glargine 100 unit/mL (3 28 unit subcut BEDTIME@2100 05/02/22 01/03/23 08/01/22 History mL) subcutaneous pen (Lantus Solostar U-100 Insulin) rosuvastatin 40 mg tablet 40 mg PO BEDTIME 05/02/22 01/03/23 08/01/22 History amlodipine 5 mg tablet 5 mg PO DAILY@1200 08/02/22 01/03/23 08/02/22 History insulin aspart U-100 100 unit/mL 8 unit subcut DAILY@0800 08/02/22 01/03/23 09/07/22 History subcutaneous solution (Novolog U-100 Insulin aspart) Probiotic 1 cap PO BID 03/30/23 03/30/23 03/30/23 History torsemide 20 mg tablet 20 mg PO DAILY@1200 03/30/23 03/30/23 03/29/23 History Physical Exam 2 Vital Signs and Narrative: Vital Signs: Last Vital Signs Temp 98.0 F 03/30/23 12:02 Pulse 78 03/30/23 12:02 Resp 18 03/30/23 12:02 BP 136/67 03/30/23 12:02 Pulse Ox 100 03/30/23 12:02 O2 Del Method Room Air 03/30/23 12:02 BMI result Body Mass Index 52.8 Const: Other: Constitutional : Awake, interactive, morbidly obese, not in distress Neck : Normal inspection, Supple Cardiovascular : RRR, no JVP, no lower extremity edema Respiratory : good bilateral air entry, no crackles, wheezes or rhonchi Gastrointestinal: soft, lax, Normal bowel sounds, mid suprapubic tenderness with no surgical signs Skin : Warm, Dry Neurological : Alert & oriented x3, No focal deficit Results Labs 03/30/23 11:48 03/30/23 14:43 Labs: Laboratory Results - last 24 hr 03/30/23 03/30/23 03/30/23 11:45 11:48 13:05 MCV 86.5 MCH 27.6 MCHC 31.9 RDW 17.9 H Plt Count 192 MPV 10.6 Immature Gran % (Auto) 0.8 H Neut % (Auto) 84.1 H Lymph % (Auto) 6.3 L [place] % (Auto) 6.0 Eos % (Auto) 2.5 Baso % (Auto) 0.3 Lymph # (Auto) 0.7 L [place] # (Auto) 0.6 Eos # (Auto) 0.3 Baso # (Auto) 0.0 Abs Immat Gran (auto) 0.08 H Absolute Neuts (auto) 9.0 H Absolute Nucleated RBC 0.000 Nucleated RBC % (auto) 0.0 Anion Gap 15 Estim Creat Clear Calc 36.0 Estimated GFR 21 Random Glucose 259 H Lactic Acid 0.8 Calcium 7.3 L D Magnesium 1.3 L* Total Bilirubin 1.5 H AST 53 H ALT 54 H Alkaline Phosphatase 1092 H B-Natriuretic Peptide 109 H Total Protein 6.8 Albumin 3.3 L Lipase 26 Urine Color Yellow Urine Appearance Turbid Urine pH 5.5 Ur Specific [place] 1.010 Urine Protein 30 (1+) H Urine Glucose (UA) 500 H Urine Ketones Negative Urine Blood Small (1+) H Urine Nitrite Negative Ur Leukocyte Esterase Large (3+) H Urine RBC 0-2 Urine WBC >50 H Urine WBC Clumps Present Ur Squamous Epith Cells 0-2 Urine Bacteria 4+ Hyaline Casts 0-2 Stl C. cayetanensis PCR Not Detected Stool Rotavirus A PCR Not Detected Stl Adenov F 40/41 PCR Not Detected Stool Astrovirus (PCR) Not Detected Stool Campylobacter PCR Not Detected Stool Cryptosporidium PCR Not Detected Stl Sh Tox Pr E STEC PCR Not Detected Stool E coli O157 PCR Not applicable Stl Enterotoxigenic E PCR Not Detected Stool EPEC (PCR) Not Detected Stool EAEC (PCR) Not Detected Stl E. histolytica PCR Not Detected Stool Giardia Lamblia PCR Not Detected Stl P. shigelloides PCR Not Detected Stool Salmonella PCR Not Detected Stool Sapovirus (PCR) Not Detected Stl Shigella/EIEC PCR Not Detected St Y.enterocolitica PCR Not Detected Stool Vibrio (PCR) Not Detected Stl Vibrio cholerae PCR Not Detected Stl Norovirus GI/GII PCR Not Detected COVID-19 ([facility]) Negative COVID-19 Clin Com See Note Influenza Type A (LARRY) Negative Influenza Type B (LARRY) Negative Influenza A & B Note See Note 03/30/23 14:43 MCV MCH MCHC RDW Plt Count MPV Immature Gran % (Auto) Neut % (Auto) Lymph % (Auto) [place] % (Auto) Eos % (Auto) Baso % (Auto) Lymph # (Auto) [place] # (Auto) Eos # (Auto) Baso # (Auto) Abs Immat Gran (auto) Absolute Neuts (auto) Absolute Nucleated RBC Nucleated RBC % (auto) Anion Gap 18 Estim Creat Clear Calc 34.9 Estimated GFR 21 Random Glucose 196 H Lactic Acid Calcium 7.4 L Magnesium 1.8 Total Bilirubin 1.1 H AST 48 H ALT 53 H Alkaline Phosphatase 956 H B-Natriuretic Peptide Total Protein 6.5 Albumin 3.3 L Lipase Urine Color Urine Appearance Urine pH Ur Specific [place] Urine Protein Urine Glucose (UA) Urine Ketones Urine Blood Urine Nitrite Ur Leukocyte Esterase Urine RBC Urine WBC Urine WBC Clumps Ur Squamous Epith Cells Urine Bacteria Hyaline Casts Stl C. cayetanensis PCR Stool Rotavirus A PCR Stl Adenov F 40/41 PCR Stool Astrovirus (PCR) Stool Campylobacter PCR Stool Cryptosporidium PCR Stl Sh Tox Pr E STEC PCR Stool E coli O157 PCR Stl Enterotoxigenic E PCR Stool EPEC (PCR) Stool EAEC (PCR) Stl E. histolytica PCR Stool Giardia [place] PCR Stl P. shigelloides PCR Stool Salmonella PCR Stool Sapovirus (PCR) Stl Shigella/EIEC PCR St Y.enterocolitica PCR Stool Vibrio (PCR) Stl Vibrio cholerae PCR Stl Norovirus GI/GII PCR COVID-19 ([facility]) COVID-19 Clin Com Influenza Type A (LARRY) Influenza Type B (LARRY) Influenza A & B Note Imaging Radiologist's Impressions: Impressions Abdomen/Pelvis CT 03/30/23 12:44 IMPRESSION: There appears to be encased conspicuity of the biliary tree in the left lobe of the liver with indeterminate findings within the gallbladder pancreatic head. Contrast-enhanced study with oral or IV contrast as well as ultrasound would be advised for further workup. Fleischner guidelines were followed. Assessment and Plan (1) Diarrhea: Status: Acute (2) Acute UTI: Status: Acute (3) Abdominal pain: Status: Acute (4) Acute on chronic kidney failure: Status: Acute Plan A 72 year old male w PMH of chronic afib, DM, CKD III, HTN, gout, morbid obesity, CKD IV, chronic diastolic and right sided CHF, presented with lower abdominal pain and weakness. Acute UTI recurrent problem Pending culutres Start Ceftriaxone Abnormal biliary tree w transaminitis with elevated ALP, weight loss to CT scan with contrast GI and surgery to evaluate MARGOTH on CKD3 Cr of almost 3 today hold nephrotoxic urine studies follow BMP Acute hypokalemia give IV and PO replacement follow BMP Acute hypomagnesemia IV replacement Diarrhea Hx of cdif colonizer only imodium DVT PPx Eliquis The paitent will need 2 overnight hospital stay for evaluation of abd pain, urine infection pending final cultures and specialists opinion. Quality Stroke Does the patient have a stroke diagnosis?: No VTE Prior VTE?: No VTE Risk Level:: Medical - moderate - high VTE Device Contraindication: Treatment Not Indicated VTE Drug Contraindication: N/A - Med Ordered
[2023-03-30] MEDS: Potassium Chloride Packet 20 MEQ PACKET 40 MEQ PO ×2 (15:40→16:46)
--- NOTE | 2023-03-30 16:03 | PM.CNGS ---
History of Present Illness Consult details Consult date: 03/30/23 Narrative: 72-year-old male referred for an abnormal findings on the pancreas on a CT scan He was admitted via the ER today because of complaints of dysuria, lower abdominal pain with note of a urinary tract infection. He says that he has had this same problem a few weeks ago had been on antibiotics He also describes a long history of vague abdominal discomfort and poor appetite. He says he has lost about 20 lb of weight for the past few months. His CAT scan showed question of a pancreatic mass so I was consulted with regards to this. Review of Systems Constitutional: Constitutional: Denies chills, Denies fever(s), Reports malaise and Reports weight loss Cardiovascular: Cardiovascular: Denies chest pain, Denies dyspnea and Denies dyspnea on exertion Respiratory: Respiratory: Denies cough, Denies dyspnea and Denies dyspnea on exertion Gastrointestinal: Gastrointestinal: Denies hematochezia and Denies change in bowel habits Genitourinary: Genitourinary: Denies hematuria and Reports difficulty urinating Musculoskeletal: Musculoskeletal: Denies back pain and Denies limited range of motion Neurologic: Denies focal weakness and Denies convulsions Psychiatric: Psychiatric: Denies depression and Denies mood swings PMFSH Past Medical History Medical History Abnormal CT of the abdomen Acute UTI Diabetes Morbid obesity Chronic atrial fibrillation History of ESBL E. 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 Hypertension Kidney disease Social History Social History Household Members: Spouse Housing: House Do you presently have visiting nurse or other home services: Yes ([employer] 3x/week) Alcohol intake: never Comment: pt refuses Patient Tobacco Use Status: Never used Tobacco Advance Directives Date on File: 05/16/22 service: Yes Current occupational status: retired Meds Allergies Allergy/AdvReac Type Severity Reaction Status Date / Time Penicillins AdvReac Intermediate HALLUCINATIONS, Verified 09/15/22 13:33 SWEATS Active Medications: Current Medications Acetaminophen (Acetaminophen 325 Mg Tablet) 650 mg PO Q6H PRN PRN Reason: Pain, Mild (Pain Scale 1-3) Sodium Chloride (Ns) 500 mls @ 500 mls/hr IV .Q1H [facility] Stop: 03/30/23 16:14 Ceftriaxone Sodium 1 gm/ (Sodium Chloride) 50 mls @ 100 mls/hr IV Q24H [facility] Insulin Glargine (Insulin Glargine,Hum.Rec.Anlog 100 Unit/Ml 10 Ml Vial) 25 unit SUBCUT BEDTIME [facility] Insulin Human Lispro (Insulin Lispro 100 Unit/Ml 3 Ml Vial) 5 unit SUBCUT QIDACHS [facility] Insulin Human Lispro (Insulin Lispro 100 Unit/Ml 3 Ml Vial) 0 unit SUBCUT QIDACHS [facility]; Protocol Ondansetron HCl (Ondansetron Hcl 4 Mg/2 Ml Vial) 4 mg IVPUSH Q8H PRN PRN Reason: Nausea and Vomiting Potassium Chloride (Potassium Chloride Packet 20 Meq Packet) 40 meq PO ONCE ONE Stop: 03/30/23 16:31 Sodium Chloride (0.9 % Sodium Chloride Flush 3 Ml Syringe) 3 ml IVFLUSH QSHIFT [facility] Home Medications Medication Instructions Recorded Confirmed Last Taken Type allopurinol 300 mg tablet 300 mg PO DAILY 11/03/20 03/30/23 03/30/23 History ascorbic acid (vitamin C) 1,000 mg 1,000 mg PO BID 11/03/20 03/30/23 03/30/23 History tablet (Vitamin C) cholecalciferol (vitamin D3) 50 50 mcg PO DAILY 11/03/20 03/30/23 03/30/23 History mcg (2,000 unit) capsule insulin aspart U-100 100 unit/mL 14 unit subcut DAILY@1200 11/03/20 03/30/23 03/29/23 History subcutaneous solution (Novolog U-100 Insulin aspart) insulin aspart U-100 100 unit/mL 20 unit subcut DAILY@1630 11/03/20 03/30/23 03/29/23 History subcutaneous solution (Novolog U-100 Insulin aspart) methenamine hippurate 1 gram tablet 1 g PO BID 11/03/20 03/30/23 03/30/23 History tamsulosin 0.4 mg capsule 0.4 mg PO BEDTIME 11/03/20 03/30/23 03/29/23 History cyanocobalamin (vitamin B-12) 100 200 mcg PO DAILY 05/02/22 03/30/23 03/30/23 History mcg tablet insulin glargine 100 unit/mL (3 36 unit subcut BEDTIME@2100 05/02/22 03/30/23 03/29/23 History mL) subcutaneous pen (Lantus Solostar U-100 Insulin) rosuvastatin 40 mg tablet 40 mg PO BEDTIME 05/02/22 03/30/23 03/29/23 History amlodipine 5 mg tablet 5 mg PO DAILY@1200 08/02/22 03/30/23 03/29/23 History insulin aspart U-100 100 unit/mL 12 unit subcut DAILY@0800 08/02/22 03/30/23 03/30/23 History subcutaneous solution (Novolog U-100 Insulin aspart) Probiotic 1 cap PO BID 03/30/23 03/30/23 03/30/23 History torsemide 20 mg tablet 20 mg PO DAILY@1200 03/30/23 03/30/23 03/29/23 History ketoconazole 2 % topical cream 1 appl topical BID PRN Skin 04/01/23 04/01/23 Unknown History Irritation Physical Exam Vital Signs: Vital Signs: Last Vital Signs Temp 98.0 F 03/30/23 12:02 Pulse 78 03/30/23 12:02 Resp 18 03/30/23 12:02 BP 136/67 03/30/23 12:02 Pulse Ox 100 03/30/23 12:02 O2 Del Method Room Air 03/30/23 12:02 BMI result Body Mass Index 52.8 Const: Other: Morbidly obese General: no acute distress Eyes: Other: Nonicteric Resp: Effort & Inspection: normal respiratory effort Cardio: Palpation: normal PMI Rate: regular rate GI: Other: Obese, with a large pannus, soft, no guarding, no rebound, no tenderness at this time Extrem: Other: Chronic lymphedema, stasis changes bilaterally Results Labs 04/05/23 05:39 04/04/23 05:59 Labs: Abnormal lab results 03/30/23 03/30/23 03/30/23 Range/Units 11:45 11:48 14:43 RBC 4.31 L (4.60-5.80) X10*6/uL Hgb 11.9 L (14.0-18.0) g/dl Hct 37.3 L (42.0-52.0) % RDW 17.9 H (11.0-16.0) % Immature Gran % (Auto) 0.8 H (0.0-0.4) % Neut % (Auto) 84.1 H (45-73) % Lymph % (Auto) 6.3 L (20-40) % Lymph # (Auto) 0.7 L (1.2-4.9) X10*3/uL Abs Immat Gran (auto) 0.08 H (0.00-0.03) X10*3/uL Absolute Neuts (auto) 9.0 H (2.0-8.3) x10*3/uL Potassium 2.5 L* D 2.6 L (3.3-5.1) mmol/L BUN 44 H 47 H (9-16) mg/dL Creatinine 2.90 H 2.99 H (0.5-1.4) mg/dL Random Glucose 259 H 196 H (60-115) mg/dL Calcium 7.3 L D 7.4 L (8.4-10.2) mg/dL Magnesium 1.3 L* (1.6-2.6) mg/dL Total Bilirubin 1.5 H 1.1 H (0.0-1.0) mg/dL AST 53 H 48 H (5-37) U/L ALT 54 H 53 H (0-40) U/L Alkaline Phosphatase 1092 H 956 H (39-117) U/L B-Natriuretic Peptide 109 H (<100) pg/mL Albumin 3.3 L 3.3 L (3.5-5.0) g/dL Urine Protein 30 (1+) H (Neg-Trace) mg/dL Urine Glucose (UA) 500 H (Negative) mg/dL Urine Blood Small (1+) H (Negative) Ur Leukocyte Esterase Large (3+) H (Negative) Urine WBC >50 H (0-5) /HPF Short CBC 03/30/23 Range/Units 11:48 WBC 10.7 (4.8-10.8) X10*3/uL Hgb 11.9 L (14.0-18.0) g/dl Hct 37.3 L (42.0-52.0) % Plt Count 192 (160-400) X10*3/uL BMP 03/30/23 03/30/23 11:48 14:43 Sodium 138 141 Potassium 2.5 L* D 2.6 L Chloride 103 104 Carbon Dioxide 23 22 BUN 44 H 47 H Creatinine 2.90 H 2.99 H Calcium 7.3 L D 7.4 L Liver Function 03/30/23 03/30/23 Range/Units 11:48 14:43 Total Bilirubin 1.5 H 1.1 H (0.0-1.0) mg/dL AST 53 H 48 H (5-37) U/L ALT 54 H 53 H (0-40) U/L Alkaline Phosphatase 1092 H 956 H (39-117) U/L Albumin 3.3 L 3.3 L (3.5-5.0) g/dL Urine 03/30/23 Range/Units 11:45 Urine Color Yellow Urine Appearance Turbid Urine pH 5.5 (5.0-9.0) Ur Specific [place] 1.010 (1.005-1.025) Urine Protein 30 (1+) H (Neg-Trace) mg/dL Urine Glucose (UA) 500 H (Negative) mg/dL All other labs normal. Laboratory Results WBC 10.7 X10*3/uL (4.8-10.8) 03/30/23 11:48 RBC 4.31 X10*6/uL (4.60-5.80) L 03/30/23 11:48 Hgb 11.9 g/dl (14.0-18.0) L 03/30/23 11:48 Hct 37.3 % (42.0-52.0) L 03/30/23 11:48 MCV 86.5 fL (80.0-98.0) 03/30/23 11:48 MCH 27.6 pg (27.0-33.0) 03/30/23 11:48 MCHC 31.9 g/dl (31.0-36.0) 03/30/23 11:48 RDW 17.9 % (11.0-16.0) H 03/30/23 11:48 Plt Count 192 X10*3/uL (160-400) 03/30/23 11:48 MPV 10.6 fL (9.4-12.4) 03/30/23 11:48 Immature Gran % (Auto) 0.8 % (0.0-0.4) H 03/30/23 11:48 Neut % (Auto) 84.1 % (45-73) H 03/30/23 11:48 Lymph % (Auto) 6.3 % (20-40) L 03/30/23 11:48 [place] % (Auto) 6.0 % (2-11) 03/30/23 11:48 Eos % (Auto) 2.5 % (0-4) 03/30/23 11:48 Baso % (Auto) 0.3 % (0-2) 03/30/23 11:48 Lymph # (Auto) 0.7 X10*3/uL (1.2-4.9) L 03/30/23 11:48 [place] # (Auto) 0.6 X10*3/uL (0.1-1.2) 03/30/23 11:48 Eos # (Auto) 0.3 X10*3/uL (0.0-0.4) 03/30/23 11:48 Baso # (Auto) 0.0 X10*3/uL (0.0-0.2) 03/30/23 11:48 Abs Immat Gran (auto) 0.08 X10*3/uL (0.00-0.03) H 03/30/23 11:48 Absolute Neuts (auto) 9.0 x10*3/uL (2.0-8.3) H 03/30/23 11:48 Absolute Nucleated RBC 0.000 X10*3/uL (0.0-0.012) 03/30/23 11:48 Nucleated RBC % (auto) 0.0 /100WBC (0.0-0.2) 03/30/23 11:48 Sodium 141 mmol/L (135-145) 03/30/23 14:43 Potassium 2.6 mmol/L (3.3-5.1) L 03/30/23 14:43 Chloride 104 mmol/L (96-108) 03/30/23 14:43 Carbon Dioxide 22 mmol/L (22-29) 03/30/23 14:43 Anion Gap 18 (12-20) 03/30/23 14:43 BUN 47 mg/dL (9-16) H 03/30/23 14:43 Creatinine 2.99 mg/dL (0.5-1.4) H 03/30/23 14:43 Estim Creat Clear Calc 34.9 03/30/23 14:43 Estimated GFR 21 03/30/23 14:43 Random Glucose 196 mg/dL (60-115) H 03/30/23 14:43 Lactic Acid 0.8 mmol/L (0.5-2.0) 03/30/23 11:48 Calcium 7.4 mg/dL (8.4-10.2) L 03/30/23 14:43 Magnesium 1.8 mg/dL (1.6-2.6) 03/30/23 14:43 Total Bilirubin 1.1 mg/dL (0.0-1.0) H 03/30/23 14:43 AST 48 U/L (5-37) H 03/30/23 14:43 ALT 53 U/L (0-40) H 03/30/23 14:43 Alkaline Phosphatase 956 U/L (39-117) H 03/30/23 14:43 B-Natriuretic Peptide 109 pg/mL (<100) H 03/30/23 11:48 Total Protein 6.5 g/dL (6.5-8.0) 03/30/23 14:43 Albumin 3.3 g/dL (3.5-5.0) L 03/30/23 14:43 Lipase 26 U/L (8-78) 03/30/23 11:48 Urine Color Yellow 03/30/23 11:45 Urine Appearance Turbid 03/30/23 11:45 Urine pH 5.5 (5.0-9.0) 03/30/23 11:45 Ur Specific [place] 1.010 (1.005-1.025) 03/30/23 11:45 Urine Protein 30 (1+) mg/dL (Neg-Trace) H 03/30/23 11:45 Urine Glucose (UA) 500 mg/dL (Negative) H 03/30/23 11:45 Urine Ketones Negative mg/dL (Negative) 03/30/23 11:45 Urine Blood Small (1+) (Negative) H 03/30/23 11:45 Urine Nitrite Negative (Negative) 03/30/23 11:45 Ur Leukocyte Esterase Large (3+) (Negative) H 03/30/23 11:45 Urine RBC 0-2 /HPF (0-2) 03/30/23 11:45 Urine WBC >50 /HPF (0-5) H 03/30/23 11:45 Urine WBC Clumps Present 03/30/23 11:45 Ur Squamous Epith Cells 0-2 /HPF (0-2) 03/30/23 11:45 Urine Bacteria 4+ (None Seen) 03/30/23 11:45 Hyaline Casts 0-2 /LPF (0-2) 03/30/23 11:45 Stl C. cayetanensis PCR Not Detected (Not Detect.) 03/30/23 13:05 Stool Rotavirus A PCR Not Detected (Not Detect.) 03/30/23 13:05 Stl Adenov F 40/41 PCR Not Detected (Not Detect.) 03/30/23 13:05 Stool Astrovirus (PCR) Not Detected (Not Detect.) 03/30/23 13:05 Stool Campylobacter PCR Not Detected (Not Detect.) 03/30/23 13:05 Stool Cryptosporidium PCR Not Detected (Not Detect.) 03/30/23 13:05 Stl Sh Tox Pr E STEC PCR Not Detected (Not Detect.) 03/30/23 13:05 Stool E coli O157 PCR Not applicable (Not Detect.) 03/30/23 13:05 Stl Enterotoxigenic E PCR Not Detected (Not Detect.) 03/30/23 13:05 Stool EPEC (PCR) Not Detected (Not Detect.) 03/30/23 13:05 Stool EAEC (PCR) Not Detected (Not Detect.) 03/30/23 13:05 Stl E. histolytica PCR Not Detected (Not Detect.) 03/30/23 13:05 Stool Giardia Lamblia PCR Not Detected (Not Detect.) 03/30/23 13:05 Stl P. shigelloides PCR Not Detected (Not Detect.) 03/30/23 13:05 Stool Salmonella PCR Not Detected (Not Detect.) 03/30/23 13:05 Stool Sapovirus (PCR) Not Detected (Not Detect.) 03/30/23 13:05 Stl Shigella/EIEC PCR Not Detected (Not Detect.) 03/30/23 13:05 St Y.enterocolitica PCR Not Detected (Not Detect.) 03/30/23 13:05 Stool Vibrio (PCR) Not Detected (Not Detect.) 03/30/23 13:05 Stl Vibrio cholerae PCR Not Detected (Not Detect.) 03/30/23 13:05 Stl Norovirus GI/GII PCR Not Detected (Not Detect.) 03/30/23 13:05 COVID-19 ([facility]) Negative (Negative) 03/30/23 11:45 COVID-19 Clin Com See Note 03/30/23 11:45 Influenza Type A ([facility]) Negative (Negative) 03/30/23 11:45 Influenza Type B (LARRY) Negative (Negative) 03/30/23 11:45 Influenza A & B Note See Note 03/30/23 11:45 Impressions Abdomen/Pelvis CT 03/30/23 12:44 IMPRESSION: There appears to be encased conspicuity of the biliary tree in the left lobe of the liver with indeterminate findings within the gallbladder pancreatic head. Contrast-enhanced study with oral or IV contrast as well as ultrasound would be advised for further workup. Fleischner guidelines were followed. Imaging Abdomen CT scan report/results: report reviewed CT scan - pelvis: report reviewed and image reviewed Assessment and Plan (1) Abnormal CT of the abdomen: Status: Acute He is admitted the hospital because of a urinary tract infection. He has had some weight loss as well. His CAT scan is suggestive of increase conspicuity of the biliary tree as well as a question of a mass in the pancreatic head. I have recommended to repeat the CT scan with oral contrast. He cannot have IV contrast because of chronic kidney disease Abdominal exam is very benign. He also states that he had an MRI of his abdomen in [place] so it would be best if again get a copy of this report and the images. We will follow along while he is in the hospital Procedures Date of Service Date of Service: 04/05/23
[2023-03-30] MEDS: 0.9 % Sodium Chloride 500 ML IV (16:04)
--- NOTE | 2023-03-30 16:04 | PHA.MEDREC ---
Pharmacy Consult ? Medication Reconciliation Pharmacy has completed the medication reconciliation. Patient confirmed mediations. Reports torsemide is 40 mg daily and 20 mg at noon. Tyra Ford, PharmD
[2023-03-30] MEDS: Diatrizoate Meglumine, Sodium 30 ML SOLUTION PO (17:07)
[2023-03-30 17:35] LABS: Glucose, Whole Blood 188 mg/dL (60-115)
[2023-03-30] MEDS: Insulin Lispro 100 UNIT/ML 3 ML VIAL SUBCUT ×4 (17:47→20:51)
--- NOTE | 2023-03-30 18:59 | PM.EVENT ---
Event Note Date of Service: 03/30/23 Event Note: GI-Chart reviewed. Patient will be seen on 03/31 with a full note to follow. Given the new very high Alk phos, poor visualization of the GB and Biliary tree on the CT, and described abdominal complaints in the chart, I have ordered a RUQ U/S and MRCP so as to better rule out biliary disease such as stones or stricture. I have also ordered a repeat liver profile for the AM, along with a GGTP and PT/INR. If there is evidence of biliary disease he may need an ERCP after his Eliquis has been held for 72 hours, unless there is a more urgent indication going forward. Thanks Time Spent With Patient Time: Total time managing care of this patient today ____ minutes.
[2023-03-30 20:01] LABS: Glucose, Whole Blood 231 mg/dL (60-115)
[2023-03-30] MEDS: Insulin Glargine,Hum.rec.anlog 100 UNIT/ML 10 ML VIAL 25 UNIT SUBCUT (20:51)
[2023-03-30] MEDS: 0.9 % Sodium Chloride Flush 3 ML SYRINGE IVFLUSH (20:53)
[2023-03-30 21:43] LABS: CDiff Gene PCR NEGATIVE (Negative)
[2023-03-30 23:49] LABS: Glucose, Whole Blood 53 mg/dL (60-115)
[2023-03-31 00:11] LABS: Glucose, Whole Blood 76 mg/dL (60-115)
[2023-03-31 04:00] VITALS: BP 146/70; PULSE 71; RESP 18; TEMP 36.6; O2SAT 97
--- NOTE | 2023-03-31 04:01 | PC.NURSE ---
Approximately after 23:30, pt reported to this RN that he was feeling jitters, chills, dizziness, and SOB. Pt A&Ox4 during assessment. Pt asked this RN to check POC due to a previous event where his sugar dropped and had similar symptoms. POC was 53. MD Lopez was notified of the critical POC. 30 grams of carbs (orange juice & sandwich) was given to pt. After 15 minutes, the rechecked POC was 76 with positive effect after the 30 grams of carbs. No new orders were given. Will continue to monitor the pt's POC closely.
[2023-03-31 05:34] LABS: MANUAL DIFF FLAG NO
[2023-03-31 05:43] LABS: Basophils Percent Auto 0.3 % (0-2); Eosinophils Absolute Auto 0.3 X10*3/uL (0.0-0.4); Eosinophils Percent Auto 3.1 % (0-4); Hematocrit 38.3 % (42.0-52.0); Hemoglobin 12.1 g/dl (14.0-18.0); Lymphocytes Percent Auto 9.1 % (20-40); Mean Corpuscular HGB Conc 31.6 g/dl (31.0-36.0); Mean Corpuscular Hemoglobin 28.1 pg (27.0-33.0); Mean Corpuscular Volume 88.9 fL (80.0-98.0); Mean Platelet Volume 11.2 fL (9.4-12.4); Monocytes Absolute Auto 0.8 X10*3/uL (0.1-1.2); Monocytes Percent Auto 7.9 % (2-11); Neutrophils Absolute Auto 8.3 x10*3/uL (2.0-8.3); Neutrophils Percent Auto 78.6 % (45-73); Platelet Count 213 X10*3/uL (160-400); Red Blood Count 4.31 X10*6/uL (4.60-5.80); White Blood Count 10.5 X10*3/uL (4.8-10.8)
[2023-03-31 05:44] LABS: INTERNATIONAL NORM RATIO 1.4 (0.9-1.1); Prothrombin Time 17.4 SEC (11.1-13.3)
[2023-03-31 06:02] LABS: Alanine Aminotransferase 52 U/L (0-40); Albumin Level 3.4 g/dL (3.5-5.0); Alkaline Phosphatase 1022 U/L (39-117); Anion Gap 18 (12-20); Aspartate Amino Transferase 48 U/L (5-37); Bilirubin Direct 0.6 mg/dL (0.0-0.5); Blood Urea Nitrogen 46 mg/dL (9-16); Calcium 7.4 mg/dL (8.4-10.2); Carbon Dioxide 21 mmol/L (22-29); Chloride 103 mmol/L (96-108); Creatinine Clr Calc Pharmacy 36.3; Estimated Glomerular Filt Rate 22; Gamma Glutamyl Transpeptidase 680 U/L (11-51); Glucose Random 160 mg/dL (60-115); Sodium 139 mmol/L (135-145); Total Protein 6.7 g/dL (6.5-8.0)
[2023-03-31 07:21] VITALS: BP 146/70; PULSE 71; O2SAT 97
[2023-03-31 07:38] VITALS: BP 130/67; PULSE 67; RESP 18; TEMP 36.4; O2SAT 100
[2023-03-31 07:39] LABS: Glucose, Whole Blood 135 mg/dL (60-115)
[2023-03-31] MEDS: Omeprazole 20 MG CAPSULE.DR PO (08:18)
[2023-03-31] MEDS: Empagliflozin 10 MG TABLET PO (08:18)
[2023-03-31] MEDS: Potassium Chloride Packet 20 MEQ PACKET 40 MEQ PO (08:19)
[2023-03-31] MEDS: Cyanocobalamin (Vitamin B-12) 100 MCG TABLET 200 MCG PO (08:19)
[2023-03-31] MEDS: Ascorbic Acid 500 MG TABLET 1000 MG PO ×2 (08:19→20:56)
[2023-03-31] MEDS: 0.9 % Sodium Chloride Flush 3 ML SYRINGE IVFLUSH ×2 (08:22→21:01)
--- NOTE | 2023-03-31 09:58 | MHC.CM.PN ---
pt lives with has digital product specialist 10 hrs a week thru [facility] referral to [facility] for home pt
[2023-03-31 11:02] LABS: Glucose, Whole Blood 195 mg/dL (60-115)
--- NOTE | 2023-03-31 11:32 | HO.PM.IMPN ---
Subjective Subjective Date of Service: 03/31/23 Interval History: Seen and evaluated this morning denies any pain, fever or chills still has on\off nausea tolerating diet no overnight events Review of Systems Review of Systems: Yes all other systems are reviewed and are negative Physical Exam Vital Signs: Vital Signs: Last Vital Signs Temp 97.5 F 03/31/23 07:38 Pulse 67 03/31/23 07:38 Resp 18 03/31/23 07:38 BP 130/67 03/31/23 07:38 Pulse Ox 100 03/31/23 07:38 O2 Del Method Room Air 03/31/23 07:38 BMI result Body Mass Index 52.8 Const: Other: Constitutional : Awake, interactive, morbidly obese, not in distress Neck : Normal inspection, Supple Cardiovascular : RRR, no JVP, no lower extremity edema Respiratory : good bilateral air entry, no crackles, wheezes or rhonchi Gastrointestinal: soft, lax, Normal bowel sounds, no significant tenderness with no surgical signs Skin : Warm, Dry Neurological : Alert & oriented x3, No focal deficit Objective Data Active Medications Acetaminophen (Acetaminophen 325 Mg Tablet) 650 mg PO Q6H PRN PRN Reason: Pain, Mild (Pain Scale 1-3) Amlodipine Besylate (Amlodipine Besylate 5 Mg Tablet) 5 mg PO DAILY@1200 [place]; Protocol Ascorbic Acid (Ascorbic Acid 500 Mg Tablet) 1,000 mg PO BID [facility] Last Admin: 03/31/23 08:19 Dose: 1,000 mg Documented By: OPAL Atorvastatin Calcium (Atorvastatin Calcium 80 Mg Tablet) 80 mg PO BEDTIME [facility] Cyanocobalamin (Cyanocobalamin (Vitamin B-12) 100 Mcg Tablet) 200 mcg PO DAILY [facility] Last Admin: 03/31/23 08:19 Dose: 200 mcg Documented By: OPAL Dextrose (Dextrose 50 % 25 Gm/50 Ml Syringe) 25 gm IVPUSH Q15M PRN; Protocol PRN Reason: per Hypoglycemia Standing Ord. Empagliflozin (Empagliflozin 10 Mg Tablet) 10 mg PO DAILY [facility] Last Admin: 03/31/23 08:18 Dose: 10 mg Documented By: OPAL Glucose (Glucose Gel 15 Gm Gel..Gram.) 15 gm PO Q15M PRN; Protocol PRN Reason: per Hypoglycemia Standing Ord. Ceftriaxone Sodium 1 gm/ (Sodium Chloride) 50 mls @ 100 mls/hr IV Q24H [facility] Insulin Glargine (Insulin Glargine,Hum.Rec.Anlog 100 Unit/Ml 10 Ml Vial) 25 unit SUBCUT BEDTIME [facility] Last Admin: 03/30/23 20:51 Dose: 25 unit Documented By: GERARDO Insulin Human Lispro (Insulin Lispro 100 Unit/Ml 3 Ml Vial) 5 unit SUBCUT QIDACHS [facility] Last Admin: 03/31/23 07:56 Dose: Not Given Documented By: OPAL Non-Admin Reason: No Insulin Coverage Insulin Human Lispro (Insulin Lispro 100 Unit/Ml 3 Ml Vial) 0 unit SUBCUT QIDACHS [facility]; Protocol Last Admin: 03/31/23 07:42 Dose: Not Given Documented By: OPAL Non-Admin Reason: No Insulin Coverage Omeprazole (Omeprazole 20 Mg Capsule.) 20 mg PO DAILY@0630 [facility] Last Admin: 03/31/23 08:18 Dose: 20 mg Documented By: OPAL Ondansetron HCl (Ondansetron Hcl 4 Mg/2 Ml Vial) 4 mg IVPUSH Q8H PRN PRN Reason: Nausea and Vomiting Sodium Chloride (0.9 % Sodium Chloride Flush 3 Ml Syringe) 3 ml IVFLUSH QSHIFT [facility] Last Admin: 03/31/23 08:22 Dose: 3 ml Documented By: OPAL Tamsulosin HCl (Tamsulosin Hcl 0.4 Mg Capsule) 0.4 mg PO BEDTIME [facility] Labs 03/31/23 05:24 03/31/23 05:24 Labs: Laboratory Results - last 24 hr 03/30/23 03/30/23 03/30/23 11:45 11:48 13:05 MCV 86.5 MCH 27.6 MCHC 31.9 RDW 17.9 H Plt Count 192 MPV 10.6 Immature Gran % (Auto) 0.8 H Neut % (Auto) 84.1 H Lymph % (Auto) 6.3 L [place] % (Auto) 6.0 Eos % (Auto) 2.5 Baso % (Auto) 0.3 Lymph # (Auto) 0.7 L [place] # (Auto) 0.6 Eos # (Auto) 0.3 Baso # (Auto) 0.0 Abs Immat Gran (auto) 0.08 H Absolute Neuts (auto) 9.0 H Absolute Nucleated RBC 0.000 Nucleated RBC % (auto) 0.0 PT INR Anion Gap 15 Estim Creat Clear Calc 36.0 Estimated GFR 21 POC Glucose Random Glucose 259 H Lactic Acid 0.8 Calcium 7.3 L D Magnesium 1.3 L* Total Bilirubin 1.5 H Direct Bilirubin GGT AST 53 H ALT 54 H Alkaline Phosphatase 1092 H B-Natriuretic Peptide 109 H Total Protein 6.8 Albumin 3.3 L Lipase 26 Urine Color Yellow Urine Appearance Turbid Urine pH 5.5 Ur Specific [place] 1.010 Urine Protein 30 (1+) H Urine Glucose (UA) 500 H Urine Ketones Negative Urine Blood Small (1+) H Urine Nitrite Negative Ur Leukocyte Esterase Large (3+) H Urine RBC 0-2 Urine WBC >50 H Urine WBC Clumps Present Ur Squamous Epith Cells 0-2 Urine Bacteria 4+ Hyaline Casts 0-2 Stl C. cayetanensis PCR Not Detected Stool Rotavirus A PCR Not Detected Stl Adenov F 40/41 PCR Not Detected Stool Astrovirus (PCR) Not Detected Stool Campylobacter PCR Not Detected Stool Cryptosporidium PCR Not Detected Stl Sh Tox Pr E STEC PCR Not Detected Stool E coli O157 PCR Not applicable Stl Enterotoxigenic E PCR Not Detected Stool EPEC (PCR) Not Detected Stool EAEC (PCR) Not Detected Stl E. histolytica PCR Not Detected Stool Giardia Lamblia PCR Not Detected Stl P. shigelloides PCR Not Detected Stool Salmonella PCR Not Detected Stool Sapovirus (PCR) Not Detected Stl Shigella/EIEC PCR Not Detected St Y.enterocolitica PCR Not Detected Stool Vibrio (PCR) Not Detected Stl Vibrio cholerae PCR Not Detected Stl Norovirus GI/GII PCR Not Detected C. difficile Tox B Gene COVID-19 ([facility]) Negative COVID-19 Clin Com See Note Influenza Type A (LARRY) Negative Influenza Type B (LARRY) Negative Influenza A & B Note See Note 03/30/23 03/30/23 03/30/23 14:43 17:29 19:15 MCV MCH MCHC RDW Plt Count MPV Immature Gran % (Auto) Neut % (Auto) Lymph % (Auto) [place] % (Auto) Eos % (Auto) Baso % (Auto) Lymph # (Auto) [place] # (Auto) Eos # (Auto) Baso # (Auto) Abs Immat Gran (auto) Absolute Neuts (auto) Absolute Nucleated RBC Nucleated RBC % (auto) PT INR Anion Gap 18 Estim Creat Clear Calc 34.9 Estimated GFR 21 POC Glucose 188 H 231 H Random Glucose 196 H Lactic Acid Calcium 7.4 L Magnesium 1.8 Total Bilirubin 1.1 H Direct Bilirubin GGT AST 48 H ALT 53 H Alkaline Phosphatase 956 H B-Natriuretic Peptide Total Protein 6.5 Albumin 3.3 L Lipase Urine Color Urine Appearance Urine pH Ur Specific [place] Urine Protein Urine Glucose (UA) Urine Ketones Urine Blood Urine Nitrite Ur Leukocyte Esterase Urine RBC Urine WBC Urine WBC Clumps Ur Squamous Epith Cells Urine Bacteria Hyaline Casts Stl C. cayetanensis PCR Stool Rotavirus A PCR Stl Adenov F 40 PCR Stool Astrovirus (PCR) Stool Campylobacter PCR Stool Cryptosporidium PCR Stl Sh Tox Pr E STEC PCR Stool E coli O157 PCR Stl Enterotoxigenic E PCR Stool EPEC (PCR) Stool EAEC (PCR) Stl E. histolytica PCR Stool Giardia Lamblia PCR Stl P. shigelloides PCR Stool Salmonella PCR Stool Sapovirus (PCR) Stl Shigella/EIEC PCR St Y.enterocolitica PCR Stool Vibrio (PCR) Stl Vibrio cholerae PCR Stl Norovirus GI/GII PCR C. difficile Tox B Gene COVID-19 ([facility]) COVID-19 Clin Com Influenza Type A (LARRY) Influenza Type B (LARRY) Influenza A & B Note 03/30/23 03/30/23 03/31/23 19:36 23:42 00:05 MCV MCH MCHC RDW Plt Count MPV Immature Gran % (Auto) Neut % (Auto) Lymph % (Auto) [place] % (Auto) Eos % (Auto) Baso % (Auto) Lymph # (Auto) [place] # (Auto) Eos # (Auto) Baso # (Auto) Abs Immat Gran (auto) Absolute Neuts (auto) Absolute Nucleated RBC Nucleated RBC % (auto) PT INR Anion Gap Estim Creat Clear Calc Estimated GFR POC Glucose 53 L* 76 Random Glucose Lactic Acid Calcium Magnesium Total Bilirubin Direct Bilirubin GGT AST ALT Alkaline Phosphatase B-Natriuretic Peptide Total Protein Albumin Lipase Urine Color Urine Appearance Urine pH Ur Specific [place] Urine Protein Urine Glucose (UA) Urine Ketones Urine Blood Urine Nitrite Ur Leukocyte Esterase Urine RBC Urine WBC Urine WBC Clumps Ur Squamous Epith Cells Urine Bacteria Hyaline Casts Stl C. cayetanensis PCR Stool Rotavirus A PCR Stl Adenov F 40 PCR Stool Astrovirus (PCR) Stool Campylobacter PCR Stool Cryptosporidium PCR Stl Sh Tox Pr E STEC PCR Stool E coli O157 PCR Stl Enterotoxigenic E PCR Stool EPEC (PCR) Stool EAEC (PCR) Stl E. histolytica PCR Stool Giardia Lamblia PCR Stl P. shigelloides PCR Stool Salmonella PCR Stool Sapovirus (PCR) Stl Shigella/EIEC PCR St Y.enterocolitica PCR Stool Vibrio (PCR) Stl Vibrio cholerae PCR Stl Norovirus GI/GII PCR C. difficile Tox B Gene NEGATIVE COVID-19 ([facility]) COVID-19 Clin Com Influenza Type A (LARRY) Influenza Type B (LARRY) Influenza A & B Note 03/31/23 03/31/23 03/31/23 05:24 07:35 10:57 MCV 88.9 MCH 28.1 MCHC 31.6 RDW 18.0 H Plt Count 213 MPV 11.2 Immature Gran % (Auto) 1.0 H Neut % (Auto) 78.6 H Lymph % (Auto) 9.1 L [place] % (Auto) 7.9 Eos % (Auto) 3.1 Baso % (Auto) 0.3 Lymph # (Auto) 1.0 L [place] # (Auto) 0.8 Eos # (Auto) 0.3 Baso # (Auto) 0.0 Abs Immat Gran (auto) 0.10 H Absolute Neuts (auto) 8.3 Absolute Nucleated RBC 0.000 Nucleated RBC % (auto) 0.0 PT 17.4 H INR 1.4 H Anion Gap 18 Estim Creat Clear Calc 36.3 Estimated GFR 22 POC Glucose 135 H 195 H Random Glucose 160 H Lactic Acid Calcium 7.4 L Magnesium Total Bilirubin 1.0 Direct Bilirubin 0.6 H GGT 680 H AST 48 H ALT 52 H Alkaline Phosphatase 1022 H B-Natriuretic Peptide Total Protein 6.7 Albumin 3.4 L Lipase Urine Color Urine Appearance Urine pH Ur Specific [place] Urine Protein Urine Glucose (UA) Urine Ketones Urine Blood Urine Nitrite Ur Leukocyte Esterase Urine RBC Urine WBC Urine WBC Clumps Ur Squamous Epith Cells Urine Bacteria Hyaline Casts Stl C. cayetanensis PCR Stool Rotavirus A PCR Stl Adenov F PCR Stool Astrovirus (PCR) Stool Campylobacter PCR Stool Cryptosporidium PCR Stl Sh Tox Pr E STEC PCR Stool E coli O157 PCR Stl Enterotoxigenic E PCR Stool EPEC (PCR) Stool EAEC (PCR) Stl E. histolytica PCR Stool Giardia Lamblia PCR Stl P. shigelloides PCR Stool Salmonella PCR Stool Sapovirus (PCR) Stl Shigella/EIEC PCR St Y.enterocolitica PCR Stool Vibrio (PCR) Stl Vibrio cholerae PCR Stl Norovirus GI/GII PCR C. difficile Tox B Gene COVID-19 ([facility]) COVID-19 Clin Com Influenza Type A (LARRY) Influenza Type B (LARRY) Influenza A & B Note Microbiology Microbiology Results: Microbiology 03/30/23 12:36 Urine Culture - Preliminary Urine clean catch - Urine scott top Gram negative waqar Assessment and Plan (1) Diarrhea: Status: Acute (2) Acute UTI: Status: Acute (3) Abnormal CT of the abdomen: Status: Acute (4) Acute on chronic kidney failure: Status: Acute (5) Acute hypokalemia: Status: Acute (6) Hypomagnesemia: Status: Acute Plan A 72 year old male w PMH of chronic afib, DM, CKD III, HTN, gout, morbid obesity, CKD IV, chronic diastolic and right sided CHF, presented with lower abdominal pain and weakness. Acute UTI recurrent problem Urine Cx growing GNR Continue Ceftriaxone Abnormal biliary tree w transaminitis with elevated ALP, reported weight loss CT scan with contrast concerning for biliary tree stricture, stone or mass GI and surgery input appreciated tolerating diet to get MRCP result from [facility] MARGOTH on CKD3 Cr of almost 3 today hold nephrotoxic urine studies follow BMP Acute hypokalemia To give IV and PO replacement follow BMP Acute hypomagnesemia IV replacement Diarrhea Hx of cdif colonizer only imodium DVT PPx Eliquis The paitent will need overnight hospital stay for evaluation of abd pain, urine infection pending final cultures and specialists opinion. Quality Stroke Does the patient have a stroke diagnosis?: No VTE Prior VTE?: No VTE Risk Level:: Medical - moderate - high VTE Device Contraindication: Treatment Not Indicated VTE Drug Contraindication: N/A - Med Ordered
[2023-03-31] MEDS: amLODIPine Besylate 5 MG TABLET PO (12:20)
[2023-03-31] MEDS: cefTRIAXone sodium 1 GM in 0.9 % Sodium Chloride 50 ML IV (12:22)
[2023-03-31 13:02] LABS: Prostate Specific Antigen 0.25 ng/mL (<0.05-4.0)
[2023-03-31] MEDS: ondansetron HCL 4 MG/2 ML VIAL IVPUSH (13:07)
--- NOTE | 2023-03-31 14:52 | PM.PNGS ---
Subjective Subjective Date of Service: 03/31/23 Interval history: Describes episodes of nausea and fullness Denies significant pain at this time Physical Exam Vital Signs: Vital Signs: Last Vital Signs Temp 97.5 F 03/31/23 07:38 Pulse 67 03/31/23 07:38 Resp 18 03/31/23 07:38 BP 130/67 03/31/23 07:38 Pulse Ox 100 03/31/23 07:38 O2 Del Method Room Air 03/31/23 07:38 BMI result Body Mass Index 52.8 Const: Other: Morbidly obese General: comfortable and no acute distress Resp: Effort & Inspection: normal respiratory effort Cardio: Rate: regular rate GI: Palpation (GI): Soft to palpation, not firm and nontender Objective Data Active Medications Acetaminophen (Acetaminophen 325 Mg Tablet) 650 mg PO Q6H PRN PRN Reason: Pain, Mild (Pain Scale 1-3) Amlodipine Besylate (Amlodipine Besylate 5 Mg Tablet) 5 mg PO DAILY@1200 [place]; Protocol Last Admin: 03/31/23 12:20 Dose: 5 mg Documented By: GUERITA Ascorbic Acid (Ascorbic Acid 500 Mg Tablet) 1,000 mg PO BID [facility] Last Admin: 03/31/23 08:19 Dose: 1,000 mg Documented By: OPAL Atorvastatin Calcium (Atorvastatin Calcium 80 Mg Tablet) 80 mg PO BEDTIME [facility] Cyanocobalamin (Cyanocobalamin (Vitamin B-12) 100 Mcg Tablet) 200 mcg PO DAILY [facility] Last Admin: 03/31/23 08:19 Dose: 200 mcg Documented By: OPAL Dextrose (Dextrose 50 % 25 Gm/50 Ml Syringe) 25 gm IVPUSH Q15M PRN; Protocol PRN Reason: per Hypoglycemia Standing Ord. Empagliflozin (Empagliflozin 10 Mg Tablet) 10 mg PO DAILY [facility] Last Admin: 03/31/23 08:18 Dose: 10 mg Documented By: OPAL Glucose (Glucose Gel 15 Gm Gel..Gram.) 15 gm PO Q15M PRN; Protocol PRN Reason: per Hypoglycemia Standing Ord. Ceftriaxone Sodium 1 gm/ (Sodium Chloride) 50 mls @ 100 mls/hr IV Q24H [facility] Last Infusion: 03/31/23 13:06 Dose: Infused Documented By: OPAL Insulin Glargine (Insulin Glargine,Hum.Rec.Anlog 100 Unit/Ml 10 Ml Vial) 25 unit SUBCUT BEDTIME [facility] Last Admin: 03/30/23 20:51 Dose: 25 unit Documented By: GERARDO Insulin Human Lispro (Insulin Lispro 100 Unit/Ml 3 Ml Vial) 5 unit SUBCUT QIDACHS [facility] Last Admin: 03/31/23 12:08 Dose: Not Given Documented By: OPAL Non-Admin Reason: NPO Insulin Human Lispro (Insulin Lispro 100 Unit/Ml 3 Ml Vial) 0 unit SUBCUT QIDACHS [facility]; Protocol Last Admin: 03/31/23 12:08 Dose: Not Given Documented By: OPAL Non-Admin Reason: NPO Omeprazole (Omeprazole 20 Mg Capsule.Dr) 20 mg PO DAILY@0630 [facility] Last Admin: 03/31/23 08:18 Dose: 20 mg Documented By: OPAL Ondansetron HCl (Ondansetron Hcl 4 Mg/2 Ml Vial) 4 mg IVPUSH Q8H PRN PRN Reason: Nausea and Vomiting Last Admin: 03/31/23 13:07 Dose: 4 mg Documented By: POAL Sodium Chloride (0.9 % Sodium Chloride Flush 3 Ml Syringe) 3 ml IVFLUSH QSHIFT [facility] Last Admin: 03/31/23 08:22 Dose: 3 ml Documented By: OPAL Tamsulosin HCl (Tamsulosin Hcl 0.4 Mg Capsule) 0.4 mg PO BEDTIME [facility] Labs 03/31/23 05:24 03/31/23 05:24 Labs: Laboratory Results - last 24 hr 03/30/23 03/30/23 03/30/23 13:05 14:43 17:29 MCV MCH MCHC RDW Plt Count MPV Immature Gran % (Auto) Neut % (Auto) Lymph % (Auto) [place] % (Auto) Eos % (Auto) Baso % (Auto) Lymph # (Auto) [place] # (Auto) Eos # (Auto) Baso # (Auto) Abs Immat Gran (auto) Absolute Neuts (auto) Absolute Nucleated RBC Nucleated RBC % (auto) PT INR Anion Gap 18 Estim Creat Clear Calc 34.9 Estimated GFR 21 POC Glucose 188 H Random Glucose 196 H Calcium 7.4 L Magnesium 1.8 Total Bilirubin 1.1 H Direct Bilirubin GGT AST 48 H ALT 53 H Alkaline Phosphatase 956 H Total Protein 6.5 Albumin 3.3 L Prostate Specific Ag Stl C. cayetanensis PCR Not Detected Stool Rotavirus A PCR Not Detected Stl Adenov F 40/41 PCR Not Detected Stool Astrovirus (PCR) Not Detected Stool Campylobacter PCR Not Detected Stool Cryptosporidium PCR Not Detected Stl Sh Tox Pr E STEC PCR Not Detected Stool E coli O157 PCR Not applicable Stl Enterotoxigenic E PCR Not Detected Stool EPEC (PCR) Not Detected Stool EAEC (PCR) Not Detected Stl E. histolytica PCR Not Detected Stool Giardia Lamblia PCR Not Detected Stl P. shigelloides PCR Not Detected Stool Salmonella PCR Not Detected Stool Sapovirus (PCR) Not Detected Stl Shigella/EIEC PCR Not Detected St Y.enterocolitica PCR Not Detected Stool Vibrio (PCR) Not Detected Stl Vibrio cholerae PCR Not Detected Stl Norovirus GI/GII PCR Not Detected C. difficile Tox B Gene 03/30/23 03/30/23 03/30/23 19:15 19:36 23:42 MCV MCH MCHC RDW Plt Count MPV Immature Gran % (Auto) Neut % (Auto) Lymph % (Auto) [place] % (Auto) Eos % (Auto) Baso % (Auto) Lymph # (Auto) [place] # (Auto) Eos # (Auto) Baso # (Auto) Abs Immat Gran (auto) Absolute Neuts (auto) Absolute Nucleated RBC Nucleated RBC % (auto) PT INR Anion Gap Estim Creat Clear Calc Estimated GFR POC Glucose 231 H 53 L* Random Glucose Calcium Magnesium Total Bilirubin Direct Bilirubin GGT AST ALT Alkaline Phosphatase Total Protein Albumin Prostate Specific Ag Stl C. cayetanensis PCR Stool Rotavirus A PCR Stl Adenov F 40/41 PCR Stool Astrovirus (PCR) Stool Campylobacter PCR Stool Cryptosporidium PCR Stl Sh Tox Pr E STEC PCR Stool E coli O157 PCR Stl Enterotoxigenic E PCR Stool EPEC (PCR) Stool EAEC (PCR) Stl E. histolytica PCR Stool Giardia Lamblia PCR Stl P. shigelloides PCR Stool Salmonella PCR Stool Sapovirus (PCR) Stl Shigella/EIEC PCR St Y.enterocolitica PCR Stool Vibrio (PCR) Stl Vibrio cholerae PCR Stl Norovirus GI/GII PCR C. difficile Tox B Gene NEGATIVE 03/31/23 03/31/23 03/31/23 00:05 05:24 07:35 MCV 88.9 MCH 28.1 MCHC 31.6 RDW 18.0 H Plt Count 213 MPV 11.2 Immature Gran % (Auto) 1.0 H Neut % (Auto) 78.6 H Lymph % (Auto) 9.1 L [place] % (Auto) 7.9 Eos % (Auto) 3.1 Baso % (Auto) 0.3 Lymph # (Auto) 1.0 L [place] # (Auto) 0.8 Eos # (Auto) 0.3 Baso # (Auto) 0.0 Abs Immat Gran (auto) 0.10 H Absolute Neuts (auto) 8.3 Absolute Nucleated RBC 0.000 Nucleated RBC % (auto) 0.0 PT 17.4 H INR 1.4 H Anion Gap 18 Estim Creat Clear Calc 36.3 Estimated GFR 22 POC Glucose 76 135 H Random Glucose 160 H Calcium 7.4 L Magnesium Total Bilirubin 1.0 Direct Bilirubin 0.6 H GGT 680 H AST 48 H ALT 52 H Alkaline Phosphatase 1022 H Total Protein 6.7 Albumin 3.4 L Prostate Specific Ag Stl C. cayetanensis PCR Stool Rotavirus A PCR Stl Adenov F 40/41 PCR Stool Astrovirus (PCR) Stool Campylobacter PCR Stool Cryptosporidium PCR Stl Sh Tox Pr E STEC PCR Stool E coli O157 PCR Stl Enterotoxigenic E PCR Stool EPEC (PCR) Stool EAEC (PCR) Stl E. histolytica PCR Stool Giardia Lamblia PCR Stl P. shigelloides PCR Stool Salmonella PCR Stool Sapovirus (PCR) Stl Shigella/EIEC PCR St Y.enterocolitica PCR Stool Vibrio (PCR) Stl Vibrio cholerae PCR Stl Norovirus GI/GII PCR C. difficile Tox B Gene 03/31/23 03/31/23 10:57 12:18 MCV MCH MCHC RDW Plt Count MPV Immature Gran % (Auto) Neut % (Auto) Lymph % (Auto) [place] % (Auto) Eos % (Auto) Baso % (Auto) Lymph # (Auto) [place] # (Auto) Eos # (Auto) Baso # (Auto) Abs Immat Gran (auto) Absolute Neuts (auto) Absolute Nucleated RBC Nucleated RBC % (auto) PT INR Anion Gap Estim Creat Clear Calc Estimated GFR POC Glucose 195 H Random Glucose Calcium Magnesium Total Bilirubin Direct Bilirubin GGT AST ALT Alkaline Phosphatase Total Protein Albumin Prostate Specific Ag 0.25 Stl C. cayetanensis PCR Stool Rotavirus A PCR Stl Adenov F 40/41 PCR Stool Astrovirus (PCR) Stool Campylobacter PCR Stool Cryptosporidium PCR Stl Sh Tox Pr E STEC PCR Stool E coli O157 PCR Stl Enterotoxigenic E PCR Stool EPEC (PCR) Stool EAEC (PCR) Stl E. histolytica PCR Stool Giardia Lamblia PCR Stl P. shigelloides PCR Stool Salmonella PCR Stool Sapovirus (PCR) Stl Shigella/EIEC PCR St Y.enterocolitica PCR Stool Vibrio (PCR) Stl Vibrio cholerae PCR Stl Norovirus GI/GII PCR C. difficile Tox B Gene Microbiology Microbiology Results: Microbiology 03/30/23 12:36 Blood Culture - Preliminary Blood - Venous No growth after 24 hours. 03/30/23 11:48 Blood Culture - Preliminary Blood - Venous No growth after 24 hours. 03/30/23 12:36 Urine Culture - Preliminary Urine clean catch - Urine scott top Gram negative waqar Procedures Date of Service Date of Service: 03/31/23 Progress Note: A&P Assessment and plan (1) Abnormal CT of the abdomen: Status: Acute Assessment and Plan: Question of pancreatic mass on CT scan Otherwise very benign exam Abdomen soft Denies severe pain at this time We are trying to retrieve his MRI results from [facility] earlier this month Otherwise no surgical intervention at this time Time Spent With Patient Time: Total time managing care of this patient today ____ minutes. Quality Stroke Does the patient have a stroke diagnosis?: No VTE Prior VTE?: No VTE Risk Level:: Medical - moderate - high VTE Device Contraindication: Treatment Not Indicated VTE Drug Contraindication: N/A - Med Ordered
[2023-03-31 15:39] VITALS: BP 134/63; PULSE 66; RESP 16; TEMP 36.4; O2SAT 100
[2023-03-31 16:03] LABS: Glucose, Whole Blood 137 mg/dL (60-115)
[2023-03-31] MEDS: Phytonadione (Vit K1) 10 MG in 0.9 % Sodium Chloride 50 ML 51 MG IV (18:13)
--- NOTE | 2023-03-31 18:28 | P.EN_ITS ---
Event Note Date of Service: 03/31/23 Event Note: GI Consult-Full note dictated. History from patient and EMR. I was also able to obtain the reading on his MRCP/MRI from [facility] on 03/06/2023 and a copy was placed on his chart Imp: Choledocholithiasis/Gallstones/Marked elevation of Alk Phos. GNR UTI but no sign of sepsis nor cholangitis at the present time. His abdomen is benign. Rec: He will need an ERCP with stone removal or at least placement of a biliary stent so as to prevent complications of cholangitis/pancreatitis/sepsis. Surgical consult. Given his clinical stable appearance, I would recommend continuing IV antibiotics over the weekend, continuing to hold his Eliquis and other blood thinners, allow diet as tolerated, and follow up of his labs. I did order a dose of IV Vit K due to the elevated PT/INR. I have also ordered a Cardiology consult for this weekend to hopefully be able to help with preop clearance. They will need to coordinate with the Anesthesia service to maximize things preoperatively and be sure they are comfortable doing his procedure with anesthesia here, as opposed to at a tertiary center. I will be on [employer] for questions over the weekend, and Dr. Osman is covering GI call as well. D/W patient. He understands the situation. Full consent obtained from him for the ERCP including risks of bleeding, perforation, cholangitis, and pancreatitis. Thanks. Time Spent With Patient Time: Total time managing care of this patient today ____ minutes.
[2023-03-31 19:30] VITALS: BP 139/63; PULSE 62; RESP 16; TEMP 36; O2SAT 99
[2023-03-31 19:44] LABS: Glucose, Whole Blood 181 mg/dL (60-115)
[2023-03-31] MEDS: Atorvastatin Calcium 80 MG TABLET PO (20:55)
[2023-03-31] MEDS: Tamsulosin HCL 0.4 MG CAPSULE PO (20:56)
[2023-03-31] MEDS: Insulin Glargine,Hum.rec.anlog 100 UNIT/ML 10 ML VIAL 25 UNIT SUBCUT (20:56)
--- NOTE | 2023-04-01 01:45 | CONS_ITS ---
DATE OF SERVICE: 03/31/2023 REASON FOR CONSULTATION: Abdominal pain, elevated LFTs, and abnormal imaging of his biliary tract. HISTORY OF PRESENT ILLNESS: This has been obtained from the patient and the medical record, as well as from an MRI report from [facility], dated March 06, 2023. The patient is a 72-year-old male, who describes at least 1 or 2 months of intermittent episodes of some right-sided abdominal pain. His abdomen is quite large, but he seems to point more to the right side of his abdomen along the middle portion and then with radiation up into the right upper quadrant. During these episodes, he denies any associated jaundice nor fevers. He has also had some postprandial nausea and belching, but no vomiting. He does have heartburn, but denies any dysphagia. His bowel movements have been chronically irregular ranging from some constipation to diarrhea. There has been no hematochezia nor melena. He did have a colonoscopy early this year with the removal of some polyps, but no findings of inflammatory bowel disease nor microscopic colitis. The patient is followed at the [facility] with Dr. Edouard. He ordered an outpatient MRI with MRCP of the abdomen, which was done on March 06 at [facility]. The report describes choledocholithiasis, dilatation of the biliary system, and gallstones. Unfortunately, the patient was not advised to seek urgent GI evaluation. The patient does have a known history of gallstones dating back to at least an ultrasound in 2019. At that time, his common duct was only 7 mm without any suspicion of common duct stones. LFTs at that time were also normal. Due to some ongoing issues of pain, he came to the ER yesterday and was admitted. He was also found to have a gram-negative waqar UTI. The patient presently denies any abdominal pain. He has been tolerating his diet here in the hospital. There has been no vomiting. He has been afebrile during the entire hospitalization with stable vital signs. Medications at home: Allopurinol, amlodipine, Eliquis which he took the last dose of on the morning of March 30, vitamin D, vitamin B12, insulin, Jardiance, methenamine hippurate, Protonix 40 mg daily, Probiotic, rosuvastatin, tamsulosin, and torsemide. His medications here in the hospital include amlodipine, atorvastatin, IV ceftriaxone, vitamin B12, Jardiance, insulin, omeprazole 20 mg daily, Zofran p.r.n., potassium, and tamsulosin. PAST MEDICAL HISTORY: Atrial fibrillation. Obesity. Insulin-dependent diabetes mellitus. Renal insufficiency. Hypertension. Gout. Congestive heart failure. Urinary tract infections. Kidney stones, which were removed by cystoscopy. Melanoma of the left eye, treated over 20 years ago. He denies a history of CT, stroke, nor any pulmonary disease. He does have sleep apnea. SOCIAL HISTORY: He is . He denies tobacco nor alcohol, although does report that he did smoke and drink fairly regularly up until about 30 years ago. FAMILY HISTORY: Noncontributory and specifically negative for liver disease. REVIEW OF SYSTEMS: CONSTITUTIONAL: He has been feeling somewhat poorly at home with some nausea and intermittent abdominal pain. CARDIAC: No chest pain. PULMONARY: No coughing nor hemoptysis. GI: As above. URINARY: No dysuria. No hematuria. NEUROLOGIC: No headache or seizures. PHYSICAL EXAMINATION: GENERAL: The patient is a pleasant, alert, comfortable appearing male, in no distress. He answers all questions appropriately. SKIN: Warm and dry. Nonjaundiced. Anicteric sclerae. Moist mucous membranes. NECK: Supple without lymphadenopathy. CHEST: Clear. CARDIAC: Normal S1, S2. ABDOMEN: Soft, nondistended. Normal bowel sounds. Nontender without mass. EXTREMITIES: Signiicant chronic edema of both lower legs with chronic skin changes IMAGING DATA: His imaging studies including an ultrasound from today describing biliary dilatation, primarily in the extrahepatic bile duct up to 1.9 cm. Also noted were gallstones in the gallbladder. His MRI report from March 06 at [facility] describes choledocholithiasis, biliary dilatation, and gallstones. White blood cell count 10.5, hemoglobin 12.1, platelets 213,000. PT 17.4 with INR 1.4. Sodium 139, potassium 3.0, BUN 46, creatinine 2.9. Total bilirubin 1.0, direct bilirubin 0.6, GGTP 680, AST 48, ALT 52, alkaline phosphatase 1022, albumin 3.4. His alkaline phosphatase yesterday was 956, alkaline phosphatase on March 30 1092, and alkaline phosphatase on February 13 of 774. His complete liver profile on September 22, 2022 was normal. IMPRESSION: Given the patient's clinical history of intermittent right-sided abdominal discomfort, markedly elevated alkaline phosphatase and GGTP, and the recent ultrasound and MRI findings, this certainly speaks for choledocholithiasis as the cause of his clinical symptoms and associated abnormalities on the MRI. At this point he appears very stable without any signs of cholangitis, peritonitis, nor sepsis. I did have a detailed discussion with him tonight regarding his need for ERCP for stone removal, or at least placement of a biliary stent for drainage, so as to hopefully prevent future complications of cholangitis, pancreatitis, and sepsis. Full consent has been obtained from him for the ERCP, including risks of bleeding, perforation, cholangitis, and pancreatitis. I did review with him that this will be done either by myself or Dr. Lange. Given his clinically stable appearance, I would recommend continuing the IV antibiotics over the weekend, continuing to hold his Eliquis and all other blood thinners, allowing diet as tolerated, and close followup of his laboratories. I did order a dose of vitamin K to treat the elevated PT with INR, which I suspect is at least partially in relation to the Eliquis. I have also asked Cardiology to see him in consultation to hopefully allow for preoperative clearance and to maximize his medical status. It would be important for Cardiology to coordinate with Anesthesiology to be sure they are comfortable with performing the procedure with anesthesia here at this hospital as opposed to transferring him to a tertiary center. I do not think he needs to be transferred from the standpoint of the ERCP and GI care in general, but clearly his increased risk in regard to his obesity, cardiac history, diabetes. and other comorbidities will need to be assessed for that. In the event things were to worsen clinically with fever, sepsis, or worsening abdominal pain, we could then proceed sooner with ERCP if need be. Thank you for the consultation. MD WILLIAMS Cardoza/LORI / [phone] NARCISA
[2023-04-01 03:42] VITALS: BP 135/60; PULSE 60; RESP 16; TEMP 36.8; O2SAT 98
[2023-04-01] MEDS: Omeprazole 20 MG CAPSULE.DR PO (05:50)
[2023-04-01 05:58] LABS: Alanine Aminotransferase 76 U/L (0-40); Albumin Level 3.2 g/dL (3.5-5.0); Alkaline Phosphatase 1040 U/L (39-117); Anion Gap 14 (12-20); Aspartate Amino Transferase 96 U/L (5-37); Bilirubin Direct 0.7 mg/dL (0.0-0.5); Blood Urea Nitrogen 42 mg/dL (9-16); Calcium 7.8 mg/dL (8.4-10.2); Carbon Dioxide 22 mmol/L (22-29); Chloride 107 mmol/L (96-108); Creatinine Clr Calc Pharmacy 40.8; Estimated Glomerular Filt Rate 25; Glucose Random 129 mg/dL (60-115); Potassium 3.3 mmol/L (3.3-5.1); Sodium 140 mmol/L (135-145); Total Protein 6.4 g/dL (6.5-8.0)
[2023-04-01 07:20] VITALS: BP 128/61; PULSE 71; RESP 18; TEMP 36.1; O2SAT 99
[2023-04-01 07:41] LABS: Glucose, Whole Blood 122 mg/dL (60-115)
[2023-04-01] MEDS: 0.9 % Sodium Chloride Flush 3 ML SYRINGE IVFLUSH ×3 (07:53→21:22)
[2023-04-01] MEDS: Cyanocobalamin (Vitamin B-12) 100 MCG TABLET 200 MCG PO (07:53)
[2023-04-01] MEDS: Empagliflozin 10 MG TABLET PO (07:53)
[2023-04-01] MEDS: Ascorbic Acid 500 MG TABLET 1000 MG PO ×2 (07:53→21:12)
[2023-04-01] MEDS: Enoxaparin Sodium 100 MG/ML SYRINGE SUBCUT ×2 (09:19→21:12)
--- NOTE | 2023-04-01 09:49 | ECG_ITS ---
Test Reason : preop Blood Pressure : / mmHG Vent. Rate : 081 BPM Atrial Rate : 084 BPM P-R Int : 000 ms QRS Dur : 192 ms QT Int : 464 ms P-R-T Axes : 000 -77 062 degrees QTc Int : 539 ms Atrial fibrillation Left axis deviation Right bundle branch block Abnormal ECG When compared with ECG of 07-SEP-2022 12:48, No significant changes seen Referred By: Abdullahi Carter Electronically Signed By:ABDULLAHI CARTER
--- NOTE | 2023-04-01 10:32 | HO.PM.IMPN ---
Subjective Subjective Date of Service: 04/01/23 Interval History: Seen and evaluated this morning denies any pain, fever or chills tolerating diet MRCP showed large stone no overnight events Review of Systems Review of Systems: Yes all other systems are reviewed and are negative Physical Exam Vital Signs: Vital Signs: Last Vital Signs Temp 96.9 F 04/01/23 07:20 Pulse 71 04/01/23 07:20 Resp 18 04/01/23 07:20 BP 128/61 04/01/23 07:20 Pulse Ox 99 04/01/23 07:20 O2 Del Method Room Air 04/01/23 07:20 BMI result Body Mass Index 52.8 Const: Other: Constitutional : Awake, interactive, morbidly obese, not in distress Neck : Normal inspection, Supple Cardiovascular : RRR, no JVP, no lower extremity edema Respiratory : good bilateral air entry, no crackles, wheezes or rhonchi Gastrointestinal: soft, lax, Normal bowel sounds, no significant tenderness with no surgical signs Skin : Warm, Dry Neurological : Alert & oriented x3, No focal deficit Objective Data Active Medications Acetaminophen (Acetaminophen 325 Mg Tablet) 650 mg PO Q6H PRN PRN Reason: Pain, Mild (Pain Scale 1-3) Amlodipine Besylate (Amlodipine Besylate 5 Mg Tablet) 5 mg PO DAILY@1200 [place]; Protocol Last Admin: 03/31/23 12:20 Dose: 5 mg Documented By: GUERITA Ascorbic Acid (Ascorbic Acid 500 Mg Tablet) 1,000 mg PO BID [facility] Last Admin: 04/01/23 07:53 Dose: 1,000 mg Documented By: MILO Atorvastatin Calcium (Atorvastatin Calcium 80 Mg Tablet) 80 mg PO BEDTIME [facility] Last Admin: 03/31/23 20:55 Dose: 80 mg Documented By: BRENT Cyanocobalamin (Cyanocobalamin (Vitamin B-12) 100 Mcg Tablet) 200 mcg PO DAILY [facility] Last Admin: 04/01/23 07:53 Dose: 200 mcg Documented By: MILO Dextrose (Dextrose 50 % 25 Gm/50 Ml Syringe) 25 gm IVPUSH Q15M PRN; Protocol PRN Reason: per Hypoglycemia Standing Ord. Empagliflozin (Empagliflozin 10 Mg Tablet) 10 mg PO DAILY [facility] Last Admin: 04/01/23 07:53 Dose: 10 mg Documented By: MILO Enoxaparin Sodium (Enoxaparin Sodium 100 Mg/Ml Syringe) 100 mg SUBCUT Q12H [facility] Last Admin: 04/01/23 09:19 Dose: 100 mg Documented By: MILO Glucose (Glucose Gel 15 Gm Gel..Gram.) 15 gm PO Q15M PRN; Protocol PRN Reason: per Hypoglycemia Standing Ord. Ceftriaxone Sodium 1 gm/ (Sodium Chloride) 50 mls @ 100 mls/hr IV Q24H [facility] Last Infusion: 03/31/23 13:06 Dose: Infused Documented By: OPAL Insulin Glargine (Insulin Glargine,Hum.Rec.Anlog 100 Unit/Ml 10 Ml Vial) 25 unit SUBCUT BEDTIME [facility] Last Admin: 03/31/23 20:56 Dose: 25 unit Documented By: BRENT Insulin Human Lispro (Insulin Lispro 100 Unit/Ml 3 Ml Vial) 5 unit SUBCUT QIDACHS [facility] Last Admin: 04/01/23 07:48 Dose: Not Given Documented By: MILO Non-Admin Reason: No Insulin Coverage Insulin Human Lispro (Insulin Lispro 100 Unit/Ml 3 Ml Vial) 0 unit SUBCUT QIDACHS [facility]; Protocol Last Admin: 04/01/23 07:48 Dose: Not Given Documented By: MILO Non-Admin Reason: No Insulin Coverage Lactic Acid (Ammonium Lactate 12 % Lotion 226 Gm Bottle) 1 appl TOPICAL BID [facility]; Protocol Omeprazole (Omeprazole 20 Mg Capsule.Dr) 20 mg PO DAILY@0630 [facility] Last Admin: 04/01/23 05:50 Dose: 20 mg Documented By: BRENT Ondansetron HCl (Ondansetron Hcl 4 Mg/2 Ml Vial) 4 mg IVPUSH Q8H PRN PRN Reason: Nausea and Vomiting Last Admin: 03/31/23 13:07 Dose: 4 mg Documented By: OPAL Sodium Chloride (0.9 % Sodium Chloride Flush 3 Ml Syringe) 3 ml IVFLUSH QSHIFT [facility] Last Admin: 04/01/23 07:53 Dose: 3 ml Documented By: MILO Tamsulosin HCl (Tamsulosin Hcl 0.4 Mg Capsule) 0.4 mg PO BEDTIME [facility] Last Admin: 03/31/23 20:56 Dose: 0.4 mg Documented By: BRENT Labs 03/31/23 05:24 04/01/23 05:27 Labs: Laboratory Results - last 24 hr 03/31/23 03/31/23 03/31/23 10:57 12:18 15:56 Hold Purple Top Anion Gap Estim Creat Clear Calc Estimated GFR POC Glucose 195 H 137 H Random Glucose Calcium Total Bilirubin Direct Bilirubin AST ALT Alkaline Phosphatase Total Protein Albumin Prostate Specific Ag 0.25 03/31/23 04/01/23 04/01/23 19:37 05:27 07:26 Hold Purple Top SEE NOTE Anion Gap 14 Estim Creat Clear Calc 40.8 Estimated GFR 25 POC Glucose 181 H 122 H Random Glucose 129 H Calcium 7.8 L Total Bilirubin 1.0 Direct Bilirubin 0.7 H AST 96 H ALT 76 H Alkaline Phosphatase 1040 H Total Protein 6.4 L Albumin 3.2 L Prostate Specific Ag Microbiology Microbiology Results: Microbiology 03/30/23 12:36 Urine Culture - Final Urine clean catch - Urine scott top Escherichia coli 03/30/23 12:36 Blood Culture - Preliminary Blood - Venous No growth after 24 hours. 03/30/23 11:48 Blood Culture - Preliminary Blood - Venous No growth after 24 hours. Assessment and Plan (1) Hypomagnesemia: Status: Acute (2) Acute hypokalemia: Status: Acute (3) Abnormal CT of the abdomen: Status: Acute (4) Common bile duct stone: Status: Acute (5) Acute UTI: Status: Acute Plan A 72 year old male w PMH of chronic afib, DM, CKD III, HTN, gout, morbid obesity, CKD IV, chronic diastolic and right sided CHF, presented with lower abdominal pain and weakness. Acute UTI recurrent problem Urine Cx growing GNR Continue Ceftriaxone Abnormal biliary tree w transaminitis Elevated ALP, GGT CT scan with contrast concerning for biliary tree stricture, stone or mass GI and surgery input appreciated tolerating diet MRCP showed large stone in his biliary tree for ERCP on Monday Cardiology consult for pre-op clearance MARGOTH on CKD3 Cr improved to 2.56 hold nephrotoxic urine studies Nephrology consult follow BMP Acute hypokalemia resolved after IV and PO replacement follow BMP Acute hypomagnesemia resolved after replacement Diarrhea Hx of cdif colonizer only imodium DVT PPx Eliquis The paitent will need overnight hospital stay for evaluation of abd pain, urine infection pending final cultures and specialists opinion. for ERCP on Monday. Quality Stroke Does the patient have a stroke diagnosis?: No VTE Prior VTE?: No VTE Risk Level:: Medical - moderate - high VTE Device Contraindication: Treatment Not Indicated VTE Drug Contraindication: N/A - Med Ordered
--- NOTE | 2023-04-01 10:44 | P.CONCA_ITS ---
History of Present Illness History of Present Illness Date of Service: 04/01/23 Chief complaint: fatigue, abd pain Narrative: This is a cardiology consultation regarding preoperative stratification for ERCP. Patient has history of morbid obesity, chronic diastolic heart failure as well as right heart dysfunction with chronic kidney disease. He also has chronic atrial fibrillation. Currently he is here for could to correlate the assess. For this reason, he needs to go for ERCP. Hence Cardiology is consulted. At baseline, he does not have much of activity and it seems that he walks with a walker. He has had chronic shortness of breath and that is mostly unchanged. He also has chronic leg swelling and that is a bit than before. He has had admission for congestive heart failure a few months back but after that he states he is somewhat stable. He takes torsemide at home. Within limits of his activity, he does get his chronic shortness of breath but nothing more than that. No anginal-type symptoms. Review of Systems 2 Review of Systems: Yes all other systems are reviewed and are negative Constitutional: Constitutional: Reports as per HPI and Reports no additional constitutional complaints Eyes: Eyes: Reports as per HPI and Denies no additional eye complaints ENT: Denies system reviewed and no additional complaints, except as documented and Reports as per HPI Cardiovascular: Cardiovascular: Reports as per HPI, Reports no additional cardiovascular complaints, Denies acrocyanosis, Denies cool extremities, Denies chest pain, Denies leg edema, Denies lightheadedness, Denies palpitations and Reports dyspnea Respiratory: Respiratory: Reports as per HPI, Denies no additional respiratory complaints and Reports dyspnea Gastrointestinal: Gastrointestinal: Reports as per HPI and Denies no additional gastrointestinal complaints Genitourinary: Genitourinary: Reports no additional male genitourinary complaints and Reports as per HPI Musculoskeletal: Musculoskeletal: Reports no additional musculoskeletal complaints and Reports as per HPI Integumentary/Breasts: Skin/Breast: Reports system reviewed and no additional complaints, except as docu Neurologic: Reports system reviewed and no additional complaints, except as documented and Reports as per HPI Psychiatric: Psychiatric: Reports no additional psychiatric complaints and Reports as per HPI Endocrine: Endocrine: Reports no additional endocrine complaints, Reports as per HPI and Denies palpitations Hematologic/Lymphatic: Hematologic/Lymphatic: Reports no additional hematologic/lymphatic complaints and Reports as per HPI Allergic/Immunologic: Allergic/Immunologic: Reports no additional allergic/immunologic complaints and Reports as per HPI [facility] Past Medical History Medical History (Updated 04/01/23 @ 10:54 by Jose Ann MD) Abnormal CT of the abdomen Acute UTI Diabetes Morbid obesity Chronic atrial fibrillation History of ESBL E. 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 Hypertension Kidney disease Family History Pertinent family history: Nothing pertinent Social History Social History Household Members: Spouse Housing: House Do you presently have visiting nurse or other home services: Yes ([employer] 3x/week) Alcohol intake: never Comment: pt refuses Patient Tobacco Use Status: Never used Tobacco Advance Directives Date on File: 05/16/22 service: Yes Current occupational status: retired Meds Allergies Allergy/AdvReac Type Severity Reaction Status Date / Time Penicillins AdvReac Intermediate HALLUCINATIONS, Verified 09/15/22 13:33 SWEATS Active Medications: Current Medications Acetaminophen (Acetaminophen 325 Mg Tablet) 650 mg PO Q6H PRN PRN Reason: Pain, Mild (Pain Scale 1-3) Amlodipine Besylate (Amlodipine Besylate 5 Mg Tablet) 5 mg PO DAILY@1200 [facility]; Protocol Last Admin: 03/31/23 12:20 Dose: 5 mg Ascorbic Acid (Ascorbic Acid 500 Mg Tablet) 1,000 mg PO BID [facility] Last Admin: 04/01/23 07:53 Dose: 1,000 mg Atorvastatin Calcium (Atorvastatin Calcium 80 Mg Tablet) 80 mg PO BEDTIME [facility] Last Admin: 03/31/23 20:55 Dose: 80 mg Cyanocobalamin (Cyanocobalamin (Vitamin B-12) 100 Mcg Tablet) 200 mcg PO DAILY [facility] Last Admin: 04/01/23 07:53 Dose: 200 mcg Dextrose (Dextrose 50 % 25 Gm/50 Ml Syringe) 25 gm IVPUSH Q15M PRN; Protocol PRN Reason: per Hypoglycemia Standing Ord. Empagliflozin (Empagliflozin 10 Mg Tablet) 10 mg PO DAILY [facility] Last Admin: 04/01/23 07:53 Dose: 10 mg Enoxaparin Sodium (Enoxaparin Sodium 100 Mg/Ml Syringe) 100 mg SUBCUT Q12H [facility] Last Admin: 04/01/23 09:19 Dose: 100 mg Glucose (Glucose Gel 15 Gm Gel..Gram.) 15 gm PO Q15M PRN; Protocol PRN Reason: per Hypoglycemia Standing Ord. Ceftriaxone Sodium 1 gm/ (Sodium Chloride) 50 mls @ 100 mls/hr IV Q24H [facility] Last Infusion: 03/31/23 13:06 Dose: Infused Insulin Glargine (Insulin Glargine,Hum.Rec.Anlog 100 Unit/Ml 10 Ml Vial) 25 unit SUBCUT BEDTIME [facility] Last Admin: 03/31/23 20:56 Dose: 25 unit Insulin Human Lispro (Insulin Lispro 100 Unit/Ml 3 Ml Vial) 5 unit SUBCUT QIDACHS [facility] Last Admin: 04/01/23 07:48 Dose: Not Given Insulin Human Lispro (Insulin Lispro 100 Unit/Ml 3 Ml Vial) 0 unit SUBCUT QIDACHS [facility]; Protocol Last Admin: 04/01/23 07:48 Dose: Not Given Lactic Acid (Ammonium Lactate 12 % Lotion 226 Gm Bottle) 1 appl TOPICAL BID [facility]; Protocol Omeprazole (Omeprazole 20 Mg Capsule.Dr) 20 mg PO DAILY@0630 [facility] Last Admin: 04/01/23 05:50 Dose: 20 mg Ondansetron HCl (Ondansetron Hcl 4 Mg/2 Ml Vial) 4 mg IVPUSH Q8H PRN PRN Reason: Nausea and Vomiting Last Admin: 03/31/23 13:07 Dose: 4 mg Sodium Chloride (0.9 % Sodium Chloride Flush 3 Ml Syringe) 3 ml IVFLUSH QSHIFT [facility] Last Admin: 04/01/23 07:53 Dose: 3 ml Tamsulosin HCl (Tamsulosin Hcl 0.4 Mg Capsule) 0.4 mg PO BEDTIME [facility] Last Admin: 03/31/23 20:56 Dose: 0.4 mg Home Medications Medication Instructions Recorded Confirmed Last Taken Type allopurinol 300 mg tablet 300 mg PO DAILY 11/03/20 03/30/23 03/30/23 History ascorbic acid (vitamin C) 1,000 mg 1,000 mg PO BID 11/03/20 03/30/23 03/30/23 History tablet (Vitamin C) cholecalciferol (vitamin D3) 50 50 mcg PO DAILY 11/03/20 03/30/23 03/30/23 History mcg (2,000 unit) capsule insulin aspart U-100 100 unit/mL 14 unit subcut DAILY@1200 11/03/20 03/30/23 03/29/23 History subcutaneous solution (Novolog U-100 Insulin aspart) insulin aspart U-100 100 unit/mL 20 unit subcut DAILY@1630 11/03/20 03/30/23 03/29/23 History subcutaneous solution (Novolog U-100 Insulin aspart) methenamine hippurate 1 gram tablet 1 g PO BID 11/03/20 03/30/23 03/30/23 History tamsulosin 0.4 mg capsule 0.4 mg PO BEDTIME 11/03/20 03/30/23 03/29/23 History cyanocobalamin (vitamin B-12) 100 200 mcg PO DAILY 05/02/22 03/30/23 03/30/23 History mcg tablet insulin glargine 100 unit/mL (3 36 unit subcut BEDTIME@2100 05/02/22 03/30/23 03/29/23 History mL) subcutaneous pen (Lantus Solostar U-100 Insulin) rosuvastatin 40 mg tablet 40 mg PO BEDTIME 05/02/22 03/30/23 03/29/23 History amlodipine 5 mg tablet 5 mg PO DAILY@1200 08/02/22 03/30/23 03/29/23 History insulin aspart U-100 100 unit/mL 12 unit subcut DAILY@0800 08/02/22 03/30/23 03/30/23 History subcutaneous solution (Novolog U-100 Insulin aspart) Probiotic 1 cap PO BID 03/30/23 03/30/23 03/30/23 History torsemide 20 mg tablet 20 mg PO DAILY@1200 03/30/23 03/30/23 03/29/23 History ketoconazole 2 % topical cream 1 appl topical BID PRN Skin 04/01/23 04/01/23 Unknown History Irritation Physical Exam 2 Vital Signs: Vital Signs: Last Vital Signs Temp 96.9 F 04/01/23 07:20 Pulse 71 04/01/23 07:20 Resp 18 04/01/23 07:20 BP 128/61 04/01/23 07:20 Pulse Ox 99 04/01/23 07:20 O2 Del Method Room Air 04/01/23 07:20 BMI result Body Mass Index 52.8 Const: General: comfortable and no acute distress O rientation/consciousness: patient oriented x3 HEENT: Other: Unremarkable Head: Yes normal to inspection Neck: Neck: Yes normal visual inspection Chest: Chest palpation & inspection: normal inspection of the chest Resp: Auscultation: clear to auscultation bilaterally Cardio: Palpation: normal PMI Heart sounds: S1 normal heart sound present, S2 normal heart sound present, no gallops, no murmurs and no rubs GI: Palpation (GI): Soft to palpation Back/Spine/Pelvis: Other: unremarkable Skin: General skin exam: no rashes or lesions noted Neuro: General: patient oriented x3 Extrem: Other: 2 to 3+ swelling with chronic changes General: Yes normal to inspection Psych: Mental Status: mental status grossly normal Objective Labs and Meds 03/31/23 05:24 04/01/23 05:27 Lab results: Laboratory Results - last 24 hr 03/31/23 03/31/23 03/31/23 10:57 12:18 15:56 Hold Purple Top Sodium Potassium Chloride Carbon Dioxide Anion Gap BUN Creatinine Estim Creat Clear Calc Estimated GFR POC Glucose 195 H 137 H Random Glucose Calcium Total Bilirubin Direct Bilirubin AST ALT Alkaline Phosphatase Total Protein Albumin Prostate Specific Ag 0.25 03/31/23 04/01/23 04/01/23 19:37 05:27 07:26 Hold Purple Top SEE NOTE Sodium 140 Potassium 3.3 Chloride 107 Carbon Dioxide 22 Anion Gap 14 BUN 42 H Creatinine 2.56 H Estim Creat Clear Calc 40.8 Estimated GFR 25 POC Glucose 181 H 122 H Random Glucose 129 H Calcium 7.8 L Total Bilirubin 1.0 Direct Bilirubin 0.7 H AST 96 H ALT 76 H Alkaline Phosphatase 1040 H Total Protein 6.4 L Albumin 3.2 L Prostate Specific Ag ECG Interpretation: EKG shows atrial fibrillation, right bundle-branch block and left anterior fascicular block. This is chronic. Imaging Radiologist's impression: Impressions Abdomen Ultrasound 03/31/23 16:00 IMPRESSION: Intra and extrahepatic biliary ductal dilatation, common bile duct measuring 1.9 cm. Consider MRCP/ERCP. Wall echo shadow sign right upper quadrant possibly due to cholelithiasis although no calcified gallstone seen on recent CT. Echogenic liver, question hepatic steatosis. Assessment and Plan (1) Preoperative cardiovascular examination: Status: Acute (2) Chronic heart failure with preserved ejection fraction: Status: Acute (3) Chronic right heart failure: Status: Acute (4) Chronic atrial fibrillation: Status: Acute (5) Morbid obesity: Status: Inactive Plan Last echocardiogram from August with LVEF of 60-65% and significantly increased right-sided pressures. Limited study due to body habitus. We discussed for a long time about his many comorbidities and implications from anesthesia. Potential complications include worsening congestive heart failure, pulmonary edema, acute respiratory failure, myocardial infarction, arrhythmias and rarely . These risks are unmodifiable and we discussed about that as well. May repeat echocardiogram this weekend to reassess cardiac function before the planned procedure next week. All questions answered to satisfaction. Discussed with Dr. Melo. Procedures Date of Service Date of Service: 04/01/23
[2023-04-01 11:41] LABS: Glucose, Whole Blood 219 mg/dL (60-115)
[2023-04-01] MEDS: amLODIPine Besylate 5 MG TABLET PO (11:58)
[2023-04-01] MEDS: Insulin Lispro 100 UNIT/ML 3 ML VIAL SUBCUT (11:58)
[2023-04-01] MEDS: cefTRIAXone sodium 1 GM in 0.9 % Sodium Chloride 50 ML IV (11:59)
[2023-04-01] MEDS: Ammonium Lactate 12 % Lotion 226 GM BOTTLE 1 APPL TOPICAL ×2 (11:59→21:13)
--- NOTE | 2023-04-01 14:58 | MHC.SHP ---
Pre-Procedural Eval Section A Date of Service: 04/04/23 The patient is an INPATIENT: Yes The History & Physical has been completed within 30 days and I have reviewed it.: Yes Section B Chief Complaint: fatigue, abd pain Allergies: Allergies Allergy/AdvReac Type Severity Reaction Status Date / Time Penicillins AdvReac Intermediate HALLUCINATIONS, Verified 09/15/22 13:33 SWEATS Plan I have reviewed the history and physical and performed a pertinent physical examination on my patient. No changes have occurred unless specified. Time Spent With Patient Time: Total time managing care of this patient today ____ minutes.
[2023-04-01 15:26] VITALS: BP 138/60; PULSE 64; RESP 16; TEMP 36.7; O2SAT 100
[2023-04-01 16:07] LABS: Glucose, Whole Blood 136 mg/dL (60-115)
[2023-04-01 19:20] VITALS: BP 129/61; PULSE 82; RESP 16; TEMP 36.6; O2SAT 100
[2023-04-01 19:31] LABS: Glucose, Whole Blood 177 mg/dL (60-115)
[2023-04-01] MEDS: Atorvastatin Calcium 80 MG TABLET PO (21:12)
[2023-04-01] MEDS: Tamsulosin HCL 0.4 MG CAPSULE PO (21:12)
[2023-04-01] MEDS: Insulin Glargine,Hum.rec.anlog 100 UNIT/ML 10 ML VIAL 25 UNIT SUBCUT (21:13)
[2023-04-02 03:28] VITALS: BP 140/63; PULSE 77; RESP 16; TEMP 36.8; O2SAT 99
[2023-04-02] MEDS: Omeprazole 20 MG CAPSULE.DR PO (06:11)
[2023-04-02 06:33] LABS: Hematocrit 35.6 % (42.0-52.0); Hemoglobin 11.5 g/dl (14.0-18.0); Mean Corpuscular HGB Conc 32.3 g/dl (31.0-36.0); Mean Corpuscular Volume 86.6 fL (80.0-98.0); Mean Platelet Volume 10.7 fL (9.4-12.4); Platelet Count 190 X10*3/uL (160-400); Red Blood Count 4.11 X10*6/uL (4.60-5.80); Red Cell Distribution Width 18.4 % (11.0-16.0); White Blood Count 7.7 X10*3/uL (4.8-10.8)
[2023-04-02 06:39] LABS: INTERNATIONAL NORM RATIO 1.2 (0.9-1.1)
[2023-04-02 06:42] LABS: Alanine Aminotransferase 69 U/L (0-40); Albumin Level 3.1 g/dL (3.5-5.0); Alkaline Phosphatase 1117 U/L (39-117); Aspartate Amino Transferase 72 U/L (5-37); Bilirubin Direct 0.9 mg/dL (0.0-0.5); Bilirubin Total 1.2 mg/dL (0.0-1.0); Total Protein 6.2 g/dL (6.5-8.0)
[2023-04-02 06:52] LABS: Anion Gap 16 (12-20); Blood Urea Nitrogen 40 mg/dL (9-16); Calcium 7.7 mg/dL (8.4-10.2); Carbon Dioxide 20 mmol/L (22-29); Chloride 108 mmol/L (96-108); Creatinine Clr Calc Pharmacy 43.1; Estimated Glomerular Filt Rate 26; Glucose Random 145 mg/dL (60-115); Potassium 3.4 mmol/L (3.3-5.1); Sodium 141 mmol/L (135-145)
--- NOTE | 2023-04-02 07:00 | CA_ITS ---
Transthoracic Echocardiogram Patient (Last, First, Middle): Geovanni Jimenez H Gender: Male Date of : 1950 Age: 72 Procedure Date: 04/02/2023 Procedure Type: Transthoracic Echocardiogram Location: S3E Height: 177.8 cm Weight: 166.02 kg BSA: 2.70 m2 Heart Rate: bpm BP: 148 / 66 mmHg Cosmetologist: Referring MD: Jose Ann MD Symptoms: CHF Study Quality: Technically Difficult due to obesity ECG Rhythm: Atrial Fibrillation Conclusions: - The left ventricular systolic function is normal. The visually estimated ejection fraction is between 60-65%. - No obvious valvular pathology seen on this study. - Mild pulmonary hypertension is present. Findings Left Ventricle Normal left ventricular cavity size. There is moderately increased left ventricular wall thickness. The left ventricular systolic function is normal. The visually estimated ejection fraction is between 60-65%. There is no evidence of regional wall motion abnormalities. Diastolic function is indeterminate on the basis of available data. Based on annular velocities, deceleration time, no overt diastolic dysfunction. Right Ventricle Normal right ventricular cavity size. There is normal right ventricular systolic function. Atria The left atrium is moderately dilated. The right atrium is normal in size. Aortic Valve There is a normal trileaflet aortic valve. There is mild calcification of the aortic valve. There is trace (trivial) aortic valve regurgitation. Increased gradients across the aortic valve likely from increased stroke volume. Mitral Valve There is mild mitral annular calcification. There is no mitral valve stenosis. Increase gradients across mitral valve (mean 5mmHg at 76/min) possibly related to increased stroke volume. Doubt any hemodynamically significant mitral stenosis. Pulmonic Valve The pulmonic valve is likely normal. Tricuspid Valve Normal tricuspid valve structure. There is mild tricuspid valve regurgitation. Mild pulmonary hypertension is present. Great Vessels The asc aorta is normal in size. Small plaque is seen in the sino tubular ridge. Venous The inferior vena cava is normal in size and collapses greater than 50% with inspiration. Prior Study Comparison Changes noted compared to prior study dated: 08/03/2022. Improved IVC size suggesting improvement in right atrial pressure. Recommendations, Care & Conclusions No obvious valvular pathology seen on this study. Measurements 2D Linear Measurements IVSd: 1.49 0.6-0.9/0.6-1.0 cm LVIDd: 4.72 3.9-5.3/4.2-5.9 cm LVIDd Index: 1.75 2.4-3.2/2.2-3.1 cm/m2 LVIDs: 3.40 2.0-3.6 cm LVPWd: 1.40 0.7-1.1 cm Ao Root: 3.80 2.1-3.5 cm LA Diam: 5.20 2.7-3.8/3.0-4.0 cm LAIDs Index: 1.93 1.5-2.3 cm/m2 LV Mass: 348.98 67-162/88-224 g LV Mass Index: 129.25 43-95/49-115 g/m2 LVOT Diam: 2.30 3.0+(-)1.3 cm 2D Systolic Function EF 4C: 52.40 >55% EF 2C: 70.60 >55% EF BiP: 61.70 >55% Mitral Valve MV VTI: 0.53 MV Pk Omar: 1.88 MV Mn Omar: 0.86 MV Pk Grad: 14.00 MV Mn Grad: 5.00 MV Pk E: 1.47 MV Decel Time: 285.00 E'Lateral: 15.10 E'Medial: 9.90 E/E' Med: 14.80 E/E' Lat: 9.70 PHT: 83.00 MVA PHT: 2.65 MVA Continuity: 2.34 Decel [place]: 5.16 Aortic Valve AoV Pk Omar: 2.26 AoV Mn Omar: 1.45 AoV VTI: 0.46 AoV Pk Grad: 20.00 Aov Mn Grad: 10.00 ITZ Cont.VTI: 2.68 LVOT LVOT Pk Omar: 1.22 LVOT Mn Omar: 0.86 LVOT VTI: 0.30 LVOT Pk Grad: 6.00 LVOT Mn Grad: 4.00 LVOT Diam: 2.30 LVOT Area: 4.15 Diastolic Function MV Pk E: 1.47 E'Medial: 9.90 E/E' Med: 14.80 E' Laterial: 15.10 E/E' Lat: 9.70 Right Ventricle TAPSE (mm): 25.00 TVS' Omar: 11.00 Tricuspid Valve TR Pk Omar: 2.90 TR Pk Grad: 34.00 RA Press: 3.00 RVSP: 37.00 Great Vessels Aorta Ao Root-2D: 3.80 2.0-3.7 cm Ao Asc: 3.90 2.1-3.4 cm Pulmonary Valve PV Pk Omar: 1.36 Peak PV Grad: 7.00 Updated in Other Vendor System with Status of Final Jose Ann MD electronically signed on 04/02/2023 12:25:04 PM with status of Final
[2023-04-02 07:29] VITALS: BP 148/66; PULSE 81; RESP 20; TEMP 36.3; O2SAT 97
[2023-04-02 07:37] LABS: Glucose, Whole Blood 125 mg/dL (60-115)
[2023-04-02 08:10] LABS: Glucose, Whole Blood 156 mg/dL (60-115)
[2023-04-02] MEDS: Cyanocobalamin (Vitamin B-12) 100 MCG TABLET 200 MCG PO (08:11)
[2023-04-02] MEDS: Empagliflozin 10 MG TABLET PO (08:11)
[2023-04-02] MEDS: Enoxaparin Sodium 100 MG/ML SYRINGE SUBCUT ×2 (08:11→21:41)
[2023-04-02] MEDS: Ascorbic Acid 500 MG TABLET 1000 MG PO ×2 (08:11→21:41)
[2023-04-02] MEDS: 0.9 % Sodium Chloride Flush 3 ML SYRINGE IVFLUSH ×3 (08:11→21:44)
[2023-04-02] MEDS: Ammonium Lactate 12 % Lotion 226 GM BOTTLE 1 APPL TOPICAL ×2 (08:12→21:42)
--- NOTE | 2023-04-02 08:16 | PC.NURSE ---
Pt c/o feeling shaky. VSS Repeat POC 156.
--- NOTE | 2023-04-02 09:36 | PM.EVENT ---
Event Note Date of Service: 04/04/23 Event Note: Chart REviewed 72 yr old man with chronic afib, DM, CKD III, HTN, gout, morbid obesity, CKD IV, chronic diastolic and right sided CHF E.Coli UTI Now with MARGOTH superimposed on CKD Cr is improving Keep I > O and SBP > !00 Continue to avoid nephrotoxins Full consult to follow Thanks Time Spent With Patient Time: Total time managing care of this patient today ____ minutes.
--- NOTE | 2023-04-02 10:33 | P.PNIM_ITS ---
Subjective Subjective Date of Service: 04/02/23 Interval History: Seen and evaluated this morning denies any pain, fever or chills tolerating diet LFT continues to increase slowly no overnight events Review of Systems Review of Systems: Yes all other systems are reviewed and are negative Physical Exam 2 Vital Signs: Vital Signs: Last Vital Signs Temp 97.4 F 04/02/23 07:29 Pulse 81 04/02/23 07:29 Resp 20 04/02/23 07:29 BP 148/66 H 04/02/23 07:29 Pulse Ox 97 04/02/23 07:29 O2 Del Method Room Air 04/02/23 07:29 BMI result Body Mass Index 52.8 Const: Other: Constitutional : Awake, interactive, morbidly obese, not in distress Neck : Normal inspection, Supple Cardiovascular : RRR, no JVP, no lower extremity edema Respiratory : good bilateral air entry, no crackles, wheezes or rhonchi Gastrointestinal: soft, lax, Normal bowel sounds, no significant tenderness with no surgical signs Skin : Warm, Dry Neurological : Alert & oriented x3, No focal deficit Objective Data Active Medications Acetaminophen (Acetaminophen 325 Mg Tablet) 650 mg PO Q6H PRN PRN Reason: Pain, Mild (Pain Scale 1-3) Amlodipine Besylate (Amlodipine Besylate 5 Mg Tablet) 5 mg PO DAILY@1200 [facility]; Protocol Last Admin: 04/01/23 11:58 Dose: 5 mg Documented By: MILO Ascorbic Acid (Ascorbic Acid 500 Mg Tablet) 1,000 mg PO BID [facility] Last Admin: 04/02/23 08:11 Dose: 1,000 mg Documented By: MILO Atorvastatin Calcium (Atorvastatin Calcium 80 Mg Tablet) 80 mg PO BEDTIME [facility] Last Admin: 04/01/23 21:12 Dose: 80 mg Documented By: LYSDeep Cyanocobalamin (Cyanocobalamin (Vitamin B-12) 100 Mcg Tablet) 200 mcg PO DAILY [facility] Last Admin: 04/02/23 08:11 Dose: 200 mcg Documented By: MILO Dextrose (Dextrose 50 % 25 Gm/50 Ml Syringe) 25 gm IVPUSH Q15M PRN; Protocol PRN Reason: per Hypoglycemia Standing Ord. Empagliflozin (Empagliflozin 10 Mg Tablet) 10 mg PO DAILY [facility] Last Admin: 04/02/23 08:11 Dose: 10 mg Documented By: MILO Enoxaparin Sodium (Enoxaparin Sodium 100 Mg/Ml Syringe) 100 mg SUBCUT Q12H [facility] Last Admin: 04/02/23 08:11 Dose: 100 mg Documented By: MILO Glucose (Glucose Gel 15 Gm Gel..Gram.) 15 gm PO Q15M PRN; Protocol PRN Reason: per Hypoglycemia Standing Ord. Ceftriaxone Sodium 1 gm/ (Sodium Chloride) 50 mls @ 100 mls/hr IV Q24H [facility] Last Infusion: 04/01/23 12:40 Dose: Infused Documented By: MILO Insulin Glargine (Insulin Glargine,Hum.Rec.Anlog 100 Unit/Ml 10 Ml Vial) 25 unit SUBCUT BEDTIME [facility] Last Admin: 04/01/23 21:13 Dose: 25 unit Documented By: BRENT Insulin Human Lispro (Insulin Lispro 100 Unit/Ml 3 Ml Vial) 5 unit SUBCUT QIDACHS [facility] Last Admin: 04/02/23 08:09 Dose: Not Given Documented By: MILO Non-Admin Reason: No Insulin Coverage Insulin Human Lispro (Insulin Lispro 100 Unit/Ml 3 Ml Vial) 0 unit SUBCUT QIDACHS [facility]; Protocol Last Admin: 04/02/23 08:09 Dose: Not Given Documented By: MILO Non-Admin Reason: No Insulin Coverage Lactic Acid (Ammonium Lactate 12 % Lotion 226 Gm Bottle) 1 appl TOPICAL BID [facility]; Protocol Last Admin: 04/02/23 08:12 Dose: 1 appl Documented By: MILO Pt Own Ketoconazole (2 % Cream) 1 appl TOPICAL BID PRN PRN Reason: Skin Irritation Last Admin: 04/01/23 21:22 Dose: 1 appl Documented By: BRENT Omeprazole (Omeprazole 20 Mg Capsule.) 20 mg PO DAILY@0630 [facility] Last Admin: 04/02/23 06:11 Dose: 20 mg Documented By: BRENT Ondansetron HCl (Ondansetron Hcl 4 Mg/2 Ml Vial) 4 mg IVPUSH Q8H PRN PRN Reason: Nausea and Vomiting Last Admin: 03/31/23 13:07 Dose: 4 mg Documented By: OPAL Sodium Chloride (0.9 % Sodium Chloride Flush 3 Ml Syringe) 3 ml IVFLUSH QSHIFT [facility] Last Admin: 04/02/23 08:11 Dose: 3 ml Documented By: MILO Tamsulosin HCl (Tamsulosin Hcl 0.4 Mg Capsule) 0.4 mg PO BEDTIME [facility] Last Admin: 04/01/23 21:12 Dose: 0.4 mg Documented By: BRENT Labs 04/02/23 06:11 04/02/23 06:11 Labs: Laboratory Results - last 24 hr 04/01/23 04/01/23 04/01/23 11:37 16:03 19:27 MCV MCH MCHC RDW Plt Count MPV Absolute Nucleated RBC Nucleated RBC % (auto) PT INR Anion Gap Estim Creat Clear Calc Estimated GFR POC Glucose 219 H 136 H 177 H Random Glucose Calcium Total Bilirubin Direct Bilirubin AST ALT Alkaline Phosphatase Total Protein Albumin 04/02/23 04/02/23 04/02/23 06:11 07:33 08:07 MCV 86.6 MCH 28.0 MCHC 32.3 RDW 18.4 H Plt Count 190 MPV 10.7 Absolute Nucleated RBC 0.000 Nucleated RBC % (auto) 0.0 PT 15.0 H INR 1.2 H Anion Gap 16 Estim Creat Clear Calc 43.1 Estimated GFR 26 POC Glucose 125 H 156 H Random Glucose 145 H Calcium 7.7 L Total Bilirubin 1.2 H Direct Bilirubin 0.9 H AST 72 H ALT 69 H Alkaline Phosphatase 1117 H Total Protein 6.2 L Albumin 3.1 L Microbiology Microbiology Results: Microbiology 03/30/23 12:36 Blood Culture - Preliminary Blood - Venous No growth after 48 hours. 03/30/23 11:48 Blood Culture - Preliminary Blood - Venous No growth after 48 hours. 03/30/23 12:36 Urine Culture - Final Urine clean catch - Urine scott top Escherichia coli Assessment and Plan (1) Chronic heart failure with preserved ejection fraction: Status: Acute (2) Common bile duct stone: Status: Acute (3) Hypomagnesemia: Status: Acute (4) Acute hypokalemia: Status: Acute (5) Acute UTI: Status: Acute Plan A 72 year old male w PMH of chronic afib, DM, CKD III, HTN, gout, morbid obesity, CKD IV, chronic diastolic and right sided CHF, presented with lower abdominal pain and weakness. Acute UTI recurrent problem Urine Cx growing E.Coli Continue Ceftriaxone started 03/30 Abnormal biliary tree w transaminitis Elevated ALP, GGT CT scan with contrast concerning for biliary tree stricture, stone or mass GI and surgery input appreciated tolerating diet MRCP showed large stone in his biliary tree for ERCP on Monday Cardiology consult cleared the patient for surgery with moderate-high perioperative risk pending ECHO MARGOTH on CKD3 Cr improved to 2.4 hold nephrotoxic urine studies Nephrology consult follow BMP Acute hypokalemia resolved after IV and PO replacement follow BMP Acute hypomagnesemia resolved after replacement Diarrhea Hx of cdif colonizer only imodium DVT PPx Eliquis The paitent will need overnight hospital stay for evaluation of abd pain, urine infection pending final cultures and specialists opinion. for ERCP on Monday. Quality Stroke Does the patient have a stroke diagnosis?: No VTE Prior VTE?: No VTE Risk Level:: Medical - moderate - high VTE Device Contraindication: Treatment Not Indicated VTE Drug Contraindication: N/A - Med Ordered
[2023-04-02 11:19] LABS: Glucose, Whole Blood 170 mg/dL (60-115)
[2023-04-02] MEDS: amLODIPine Besylate 5 MG TABLET PO (11:44)
[2023-04-02] MEDS: cefTRIAXone sodium 1 GM in 0.9 % Sodium Chloride 50 ML IV (11:45)
[2023-04-02 15:25] VITALS: BP 138/61; PULSE 67; RESP 20; TEMP 36.1; O2SAT 100
[2023-04-02 16:18] LABS: Glucose, Whole Blood 165 mg/dL (60-115)
[2023-04-02 19:33] VITALS: BP 138/61; PULSE 74; RESP 18; TEMP 36.7; O2SAT 99
[2023-04-02 19:51] LABS: Glucose, Whole Blood 195 mg/dL (60-115)
[2023-04-02] MEDS: Atorvastatin Calcium 80 MG TABLET PO (21:41)
[2023-04-02] MEDS: Tamsulosin HCL 0.4 MG CAPSULE PO (21:41)
[2023-04-02] MEDS: Insulin Glargine,Hum.rec.anlog 100 UNIT/ML 10 ML VIAL 25 UNIT SUBCUT (21:42)
[2023-04-03 03:22] VITALS: BP 141/64; PULSE 70; RESP 16; TEMP 36.1; O2SAT 98
[2023-04-03] MEDS: Omeprazole 20 MG CAPSULE.DR PO (06:06)
[2023-04-03 07:39] LABS: Glucose, Whole Blood 154 mg/dL (60-115)
[2023-04-03 08:00] VITALS: BP 130/58; PULSE 75; RESP 16; TEMP 36.4; O2SAT 98
[2023-04-03] MEDS: Empagliflozin 10 MG TABLET PO (08:20)
[2023-04-03] MEDS: Enoxaparin Sodium 100 MG/ML SYRINGE SUBCUT (08:20)
[2023-04-03] MEDS: Cyanocobalamin (Vitamin B-12) 100 MCG TABLET 200 MCG PO (08:20)
[2023-04-03] MEDS: 0.9 % Sodium Chloride Flush 3 ML SYRINGE IVFLUSH ×3 (08:21→21:10)
[2023-04-03] MEDS: Ascorbic Acid 500 MG TABLET 1000 MG PO ×2 (08:21→21:06)
--- NOTE | 2023-04-03 10:12 | P.PNIM_ITS ---
Subjective Subjective Date of Service: 04/03/23 Interval History: Seen and evaluated this morning denies any pain, fever or chills tolerating diet LFT continues to increase slowly no overnight events Physical Exam 2 Vital Signs: Vital Signs: Last Vital Signs Temp 97.6 F 04/03/23 08:00 Pulse 75 04/03/23 08:00 Resp 16 04/03/23 08:00 BP 130/58 L 04/03/23 08:00 Pulse Ox 98 04/03/23 08:00 O2 Del Method Room Air 04/03/23 08:00 BMI result Body Mass Index 52.8 Const: Other: Constitutional : Awake, interactive, morbidly obese, not in distress Neck : Normal inspection, Supple Cardiovascular : RRR, no JVP, no lower extremity edema Respiratory : good bilateral air entry, no crackles, wheezes or rhonchi Gastrointestinal: soft, lax, Normal bowel sounds, no significant tenderness with no surgical signs Skin : Warm, Dry Neurological : Alert & oriented x3, No focal deficit Objective Data Active Medications Acetaminophen (Acetaminophen 325 Mg Tablet) 650 mg PO Q6H PRN PRN Reason: Pain, Mild (Pain Scale 1-3) Amlodipine Besylate (Amlodipine Besylate 5 Mg Tablet) 5 mg PO DAILY@1200 [facility]; Protocol Last Admin: 04/02/23 11:44 Dose: 5 mg Documented By: MILO Ascorbic Acid (Ascorbic Acid 500 Mg Tablet) 1,000 mg PO BID [facility] Last Admin: 04/03/23 08:21 Dose: 1,000 mg Documented By: KRIS Atorvastatin Calcium (Atorvastatin Calcium 80 Mg Tablet) 80 mg PO BEDTIME [facility] Last Admin: 04/02/23 21:41 Dose: 80 mg Documented By: BRENT Cyanocobalamin (Cyanocobalamin (Vitamin B-12) 100 Mcg Tablet) 200 mcg PO DAILY [facility] Last Admin: 04/03/23 08:20 Dose: 200 mcg Documented By: KRIS Dextrose (Dextrose 50 % 25 Gm/50 Ml Syringe) 25 gm IVPUSH Q15M PRN; Protocol PRN Reason: per Hypoglycemia Standing Ord. Empagliflozin (Empagliflozin 10 Mg Tablet) 10 mg PO DAILY [facility] Last Admin: 04/03/23 08:20 Dose: 10 mg Documented By: KRIS Enoxaparin Sodium (Enoxaparin Sodium 100 Mg/Ml Syringe) 100 mg SUBCUT Q12H [facility] Last Admin: 04/03/23 08:20 Dose: 100 mg Documented By: KRIS Glucose (Glucose Gel 15 Gm Gel..Gram.) 15 gm PO Q15M PRN; Protocol PRN Reason: per Hypoglycemia Standing Ord. Ceftriaxone Sodium 1 gm/ (Sodium Chloride) 50 mls @ 100 mls/hr IV Q24H [facility] Last Infusion: 04/02/23 12:17 Dose: Infused Documented By: MILO Insulin Glargine (Insulin Glargine,Hum.Rec.Anlog 100 Unit/Ml 10 Ml Vial) 25 unit SUBCUT BEDTIME [facility] Last Admin: 04/02/23 21:42 Dose: 25 unit Documented By: BRENT Insulin Human Lispro (Insulin Lispro 100 Unit/Ml 3 Ml Vial) 5 unit SUBCUT QIDACHS [facility] Last Admin: 04/03/23 08:21 Dose: Not Given Documented By: KRIS Non-Admin Reason: Patient Refused Insulin Human Lispro (Insulin Lispro 100 Unit/Ml 3 Ml Vial) 0 unit SUBCUT QIDACHS [facility]; Protocol Last Admin: 04/03/23 08:22 Dose: Not Given Documented By: KRIS Non-Admin Reason: Patient Refused Lactic Acid (Ammonium Lactate 12 % Lotion 226 Gm Bottle) 1 appl TOPICAL BID [facility]; Protocol Last Admin: 04/03/23 08:23 Dose: Not Given Documented By: KRIS Non-Admin Reason: Patient Refused Comments: pt states he only wants it applied every other day Pt Own Ketoconazole (2 % Cream) 1 appl TOPICAL BID PRN PRN Reason: Skin Irritation Last Admin: 04/01/23 21:22 Dose: 1 appl Documented By: BRENT Omeprazole (Omeprazole 20 Mg Capsule.) 20 mg PO DAILY@0630 [facility] Last Admin: 04/03/23 06:06 Dose: 20 mg Documented By: STEPHANIE Ondansetron HCl (Ondansetron Hcl 4 Mg/2 Ml Vial) 4 mg IVPUSH Q8H PRN PRN Reason: Nausea and Vomiting Last Admin: 03/31/23 13:07 Dose: 4 mg Documented By: OPAL Sodium Chloride (0.9 % Sodium Chloride Flush 3 Ml Syringe) 3 ml IVFLUSH QSHIFT [facility] Last Admin: 04/03/23 08:21 Dose: 3 ml Documented By: KRIS Tamsulosin HCl (Tamsulosin Hcl 0.4 Mg Capsule) 0.4 mg PO BEDTIME [facility] Last Admin: 04/02/23 21:41 Dose: 0.4 mg Documented By: BRENT Labs 04/02/23 06:11 04/02/23 06:11 Labs: Laboratory Results - last 24 hr 04/02/23 04/02/23 04/02/23 11:13 16:09 19:35 POC Glucose 170 H 165 H 195 H 04/03/23 07:32 POC Glucose 154 H Assessment and Plan (1) Chronic heart failure with preserved ejection fraction: Status: Acute (2) Common bile duct stone: Status: Acute (3) Acute UTI: Status: Acute Plan A 72 year old male w PMH of chronic afib, DM, CKD III, HTN, gout, morbid obesity, CKD IV, chronic diastolic and right sided CHF, presented with lower abdominal pain and weakness. Acute UTI recurrent problem Urine Cx growing E.Coli Continue Ceftriaxone started 03/30, to finish total of 7 days Abnormal biliary tree w transaminitis Elevated ALP, GGT CT scan with contrast concerning for biliary tree stricture, stone or mass GI and surgery input appreciated tolerating diet MRCP showed large stone in his biliary tree for ERCP on Monday Cardiology consult cleared the patient for surgery with moderate-high perioperative risk MAROGTH on CKD3 Cr improved to 2.4 hold nephrotoxic urine studies Nephrology consult follow BMP Acute hypokalemia resolved after IV and PO replacement follow BMP Acute hypomagnesemia resolved after replacement Diarrhea Hx of cdif colonizer only imodium DVT PPx Eliquis The paitent will need overnight hospital stay for evaluation of abd pain, urine infection pending final cultures and specialists opinion. for ERCP on Monday. Quality Stroke Does the patient have a stroke diagnosis?: No VTE Prior VTE?: No VTE Risk Level:: Medical - moderate - high VTE Device Contraindication: Treatment Not Indicated VTE Drug Contraindication: N/A - Med Ordered
--- NOTE | 2023-04-03 10:43 | PM.PNCARD ---
Subjective Subjective Date of Service: 04/03/23 Interval history: He states that he is feeling okay. No specific cardiac concerns. Review of Systems Review of Systems Yes all other systems are reviewed and are negative Constitutional: Reports as per HPI and Reports no additional constitutional complaints Eyes: Reports as per HPI and Denies no additional eye complaints Denies system reviewed and no additional complaints, except as documented and Reports as per HPI Cardiovascular: Reports as per HPI, Reports no additional cardiovascular complaints, Denies acrocyanosis, Denies cool extremities, Denies chest pain, Denies leg edema, Denies lightheadedness, Denies palpitations and Reports dyspnea Respiratory: Reports as per HPI, Denies no additional respiratory complaints and Reports dyspnea Gastrointestinal: Reports as per HPI and Denies no additional gastrointestinal complaints Genitourinary: Reports no additional male genitourinary complaints and Reports as per HPI Musculoskeletal: Reports no additional musculoskeletal complaints and Reports as per HPI Skin/Breast: Reports system reviewed and no additional complaints, except as docu Reports system reviewed and no additional complaints, except as documented and Reports as per HPI Psychiatric: Reports no additional psychiatric complaints and Reports as per HPI Endocrine: Reports no additional endocrine complaints, Reports as per HPI and Denies palpitations Hematologic/Lymphatic: Reports no additional hematologic/lymphatic complaints and Reports as per HPI Allergic/Immunologic: Reports no additional allergic/immunologic complaints and Reports as per HPI Physical Exam Vital Signs: Last Vital Signs Temp 97.6 F 04/03/23 08:00 Pulse 75 04/03/23 08:00 Resp 16 04/03/23 08:00 BP 130/58 L 04/03/23 08:00 Pulse Ox 98 04/03/23 08:00 O2 Del Method Room Air 04/03/23 08:00 BMI result Body Mass Index 52.8 Const General: comfortable and no acute distress Orientation/consciousness: patient oriented x3 HEENT Other: Unremarkable Head: Yes normal to inspection Neck Neck: Yes normal visual inspection Chest Chest palpation & inspection: normal inspection of the chest Resp Auscultation: clear to auscultation bilaterally Cardio Palpation: normal PMI Heart sounds: S1 normal heart sound present, S2 normal heart sound present, no gallops, no murmurs and no rubs GI Palpation (GI): Soft to palpation Back/Spine/Pelvis Other: unremarkable Skin General skin exam: no rashes or lesions noted Neuro General: patient oriented x3 Extrem Other: 2 to 3+ swelling with chronic changes General: Yes normal to inspection Psych Mental Status: mental status grossly normal Objective Labs and Meds 04/02/23 06:11 04/02/23 06:11 Lab results: Laboratory Results - last 24 hr 04/02/23 04/02/23 04/02/23 11:13 16:09 19:35 POC Glucose 170 H 165 H 195 H 04/03/23 07:32 POC Glucose 154 H Progress Note: A&P Assessment and plan (1) Preoperative cardiovascular examination: Status: Acute (2) Chronic heart failure with preserved ejection fraction: Status: Acute (3) Chronic right heart failure: Status: Acute (4) Chronic atrial fibrillation: Status: Acute (5) Morbid obesity: Status: Inactive Plan Echocardiogram as today with LVEF of 60-65%. No significant valvular issues. Mild pulmonary hypertension. IVC size normal with normal respiratory variation. Compared to prior study, improved IVC size/respiratory variation suggest improvement in right-sided filling pressures. This suggests relative euvolemic state. His cardiac status is as optimal as it can be. We again discussed about his many comorbidities and implications from anesthesia. Potential complications include worsening congestive heart failure, pulmonary edema, acute respiratory failure, myocardial infarction, arrhythmias and rarely . These risks are unmodifiable and we discussed about that as well. If procedure is medically necessary, may proceed as planned. Discussed with Dr. Melo. Time Spent With Patient Time: Total time managing care of this patient today ____ minutes. Progress Note: Quality Stroke Does the patient have a stroke diagnosis?: No Procedures Date of Service Date of Service: 04/03/23
[2023-04-03 11:20] LABS: Glucose, Whole Blood 180 mg/dL (60-115)
[2023-04-03] MEDS: cefTRIAXone sodium 1 GM in 0.9 % Sodium Chloride 50 ML IV (11:52)
[2023-04-03] MEDS: amLODIPine Besylate 5 MG TABLET PO (11:52)
[2023-04-03] MEDS: Insulin Lispro 100 UNIT/ML 3 ML VIAL SUBCUT ×3 (11:52→21:07)
[2023-04-03 16:00] VITALS: BP 142/61; PULSE 71; RESP 17; TEMP 36.1; O2SAT 100
[2023-04-03 16:29] LABS: Glucose, Whole Blood 178 mg/dL (60-115)
[2023-04-03 19:16] VITALS: BP 138/77; PULSE 85; RESP 18; TEMP 36.2; O2SAT 97
[2023-04-03 20:03] LABS: Glucose, Whole Blood 209 mg/dL (60-115)
[2023-04-03] MEDS: Tamsulosin HCL 0.4 MG CAPSULE PO (21:06)
[2023-04-03] MEDS: Atorvastatin Calcium 80 MG TABLET PO (21:06)
[2023-04-03] MEDS: Insulin Glargine,Hum.rec.anlog 100 UNIT/ML 10 ML VIAL 25 UNIT SUBCUT (21:09)
[2023-04-03] MEDS: Ammonium Lactate 12 % Lotion 226 GM BOTTLE 1 APPL TOPICAL (21:14)
[2023-04-04] VITALS (11 sets, daily range): BP systolic 107–158; BP diastolic 45–77; PULSE 60–85; RESP 14–18; TEMP 36–37.2; O2SAT 98–100
[2023-04-04 06:24] LABS: MANUAL DIFF FLAG NO
[2023-04-04 06:39] LABS: INTERNATIONAL NORM RATIO 1.1 (0.9-1.1); Prothrombin Time 13.2 SEC (11.1-13.3)
[2023-04-04] MEDS: Omeprazole 20 MG CAPSULE.DR PO (06:40)
[2023-04-04 06:41] LABS: Basophils Percent Auto 0.4 % (0-2); Eosinophils Absolute Auto 0.4 X10*3/uL (0.0-0.4); Eosinophils Percent Auto 4.6 % (0-4); Hematocrit 38.2 % (42.0-52.0); Imm Gran Abs Auto 0.12 X10*3/uL (0.00-0.03); Imm Gran Pct Auto 1.5 % (0.0-0.4); Lymphocytes Absolute Auto 1.1 X10*3/uL (1.2-4.9); Lymphocytes Percent Auto 13.6 % (20-40); Mean Corpuscular HGB Conc 31.4 g/dl (31.0-36.0); Mean Corpuscular Hemoglobin 27.8 pg (27.0-33.0); Mean Corpuscular Volume 88.6 fL (80.0-98.0); Mean Platelet Volume 10.6 fL (9.4-12.4); Monocytes Absolute Auto 0.7 X10*3/uL (0.1-1.2); Monocytes Percent Auto 8.3 % (2-11); Neutrophils Absolute Auto 5.6 x10*3/uL (2.0-8.3); Neutrophils Percent Auto 71.6 % (45-73); Platelet Count 195 X10*3/uL (160-400); Red Blood Count 4.31 X10*6/uL (4.60-5.80); White Blood Count 7.8 X10*3/uL (4.8-10.8)
[2023-04-04 06:55] LABS: Alanine Aminotransferase 79 U/L (0-40); Albumin Level 3.2 g/dL (3.5-5.0); Alkaline Phosphatase 1056 U/L (39-117); Anion Gap 14 (12-20); Aspartate Amino Transferase 68 U/L (5-37); Bilirubin Direct 0.6 mg/dL (0.0-0.5); Blood Urea Nitrogen 36 mg/dL (9-16); Calcium 8.2 mg/dL (8.4-10.2); Carbon Dioxide 23 mmol/L (22-29); Chloride 110 mmol/L (96-108); Creatinine Clr Calc Pharmacy 44.4; Estimated Glomerular Filt Rate 27; Glucose Fasting 148 mg/dL (60-99); Potassium 3.5 mmol/L (3.3-5.1); Sodium 143 mmol/L (135-145); Total Protein 6.6 g/dL (6.5-8.0)
[2023-04-04 07:54] LABS: Glucose, Whole Blood 155 mg/dL (60-115)
--- NOTE | 2023-04-04 09:36 | P.CONNP_ITS ---
History of Present Illness Reason for Consult Consult date: 04/05/23 Reason for consult: MARGOTH Chief Complaint Chief complaint: fatigue, abd pain History of Present Illness Narrative: A 72 year old male w PMH of chronic afib, DM, CKD III, HTN, gout, morbid obesity, CKD IV, chronic diastolic and right sided CHF, presented with lower abdominal pain and weakness. History of CKD with the patient creatinine 2.0. Usually sees Dr. Renterai. At the time of admission serum creatinine 2.9. Over the last few days with IV hydration creatinine 2.35 Review of Systems Review of Systems Had abdominal pain. No nausea vomiting. No dysuria urgency frequency. [facility] Past Medical History Medical History Abnormal CT of the abdomen Acute UTI Diabetes Morbid obesity Chronic atrial fibrillation History of ESBL E. 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 Hypertension Kidney disease Social History Social History Household Members: Spouse Housing: House Do you presently have visiting nurse or other home services: Yes ([employer] 3x/week) Alcohol intake: never Comment: pt refuses Patient Tobacco Use Status: Never used Tobacco Advance Directives Date on File: 05/16/22 service: Yes Current occupational status: retired Meds Allergies Allergy/AdvReac Type Severity Reaction Status Date / Time Penicillins AdvReac Intermediate HALLUCINATIONS, Verified 09/15/22 13:33 SWEATS Active Medications: Current Medications Acetaminophen (Acetaminophen 325 Mg Tablet) 650 mg PO Q6H PRN PRN Reason: Pain, Mild (Pain Scale 1-3) Amlodipine Besylate (Amlodipine Besylate 5 Mg Tablet) 5 mg PO DAILY@1200 [facility]; Protocol Last Admin: 04/03/23 11:52 Dose: 5 mg Ascorbic Acid (Ascorbic Acid 500 Mg Tablet) 1,000 mg PO BID [facility] Last Admin: 04/03/23 21:06 Dose: 1,000 mg Atorvastatin Calcium (Atorvastatin Calcium 80 Mg Tablet) 80 mg PO BEDTIME [facility] Last Admin: 04/03/23 21:06 Dose: 80 mg Cyanocobalamin (Cyanocobalamin (Vitamin B-12) 100 Mcg Tablet) 200 mcg PO DAILY [facility] Last Admin: 04/03/23 08:20 Dose: 200 mcg Dextrose (Dextrose 50 % 25 Gm/50 Ml Syringe) 25 gm IVPUSH Q15M PRN; Protocol PRN Reason: per Hypoglycemia Standing Ord. Empagliflozin (Empagliflozin 10 Mg Tablet) 10 mg PO DAILY [facility] Last Admin: 04/03/23 08:20 Dose: 10 mg Enoxaparin Sodium (Enoxaparin Sodium 100 Mg/Ml Syringe) 100 mg SUBCUT Q12H [facility] Last Admin: 04/03/23 08:20 Dose: 100 mg Glucose (Glucose Gel 15 Gm Gel..Gram.) 15 gm PO Q15M PRN; Protocol PRN Reason: per Hypoglycemia Standing Ord. Ceftriaxone Sodium 1 gm/ (Sodium Chloride) 50 mls @ 100 mls/hr IV Q24H [facility] Last Infusion: 04/03/23 12:42 Dose: Infused Insulin Glargine (Insulin Glargine,Hum.Rec.Anlog 100 Unit/Ml 10 Ml Vial) 25 unit SUBCUT BEDTIME [facility] Last Admin: 04/03/23 21:09 Dose: 12.5 unit Insulin Human Lispro (Insulin Lispro 100 Unit/Ml 3 Ml Vial) 5 unit SUBCUT QIDACHS [facility] Last Admin: 04/04/23 09:36 Dose: Not Given Insulin Human Lispro (Insulin Lispro 100 Unit/Ml 3 Ml Vial) 0 unit SUBCUT QIDACHS [facility]; Protocol Last Admin: 04/04/23 09:36 Dose: Not Given Lactic Acid (Ammonium Lactate 12 % Lotion 226 Gm Bottle) 1 appl TOPICAL BID [facility]; Protocol Last Admin: 04/03/23 21:14 Dose: 1 appl Pt Own Ketoconazole (2 % Cream) 1 appl TOPICAL BID PRN PRN Reason: Skin Irritation Last Admin: 04/01/23 21:22 Dose: 1 appl Omeprazole (Omeprazole 20 Mg Capsule.Dr) 20 mg PO DAILY@0630 [facility] Last Admin: 04/04/23 06:40 Dose: 20 mg Ondansetron HCl (Ondansetron Hcl 4 Mg/2 Ml Vial) 4 mg IVPUSH Q8H PRN PRN Reason: Nausea and Vomiting Last Admin: 03/31/23 13:07 Dose: 4 mg Sodium Chloride (0.9 % Sodium Chloride Flush 3 Ml Syringe) 3 ml IVFLUSH QSHIFT [facility] Last Admin: 04/03/23 21:10 Dose: 3 ml Tamsulosin HCl (Tamsulosin Hcl 0.4 Mg Capsule) 0.4 mg PO BEDTIME [facility] Last Admin: 04/03/23 21:06 Dose: 0.4 mg Home Medications Medication Instructions Recorded Confirmed Last Taken Type allopurinol 300 mg tablet 300 mg PO DAILY 11/03/20 03/30/23 03/30/23 History ascorbic acid (vitamin C) 1,000 mg 1,000 mg PO BID 11/03/20 03/30/23 03/30/23 History tablet (Vitamin C) cholecalciferol (vitamin D3) 50 50 mcg PO DAILY 11/03/20 03/30/23 03/30/23 History mcg (2,000 unit) capsule insulin aspart U-100 100 unit/mL 14 unit subcut DAILY@1200 11/03/20 03/30/23 03/29/23 History subcutaneous solution (Novolog U-100 Insulin aspart) insulin aspart U-100 100 unit/mL 20 unit subcut DAILY@1630 11/03/20 03/30/23 03/29/23 History subcutaneous solution (Novolog U-100 Insulin aspart) methenamine hippurate 1 gram tablet 1 g PO BID 11/03/20 03/30/23 03/30/23 History tamsulosin 0.4 mg capsule 0.4 mg PO BEDTIME 11/03/20 03/30/23 03/29/23 History cyanocobalamin (vitamin B-12) 100 200 mcg PO DAILY 05/02/22 03/30/23 03/30/23 History mcg tablet insulin glargine 100 unit/mL (3 36 unit subcut BEDTIME@2100 05/02/22 03/30/23 03/29/23 History mL) subcutaneous pen (Lantus Solostar U-100 Insulin) rosuvastatin 40 mg tablet 40 mg PO BEDTIME 05/02/22 03/30/23 03/29/23 History amlodipine 5 mg tablet 5 mg PO DAILY@1200 08/02/22 03/30/23 03/29/23 History insulin aspart U-100 100 unit/mL 12 unit subcut DAILY@0800 08/02/22 03/30/23 03/30/23 History subcutaneous solution (Novolog U-100 Insulin aspart) Probiotic 1 cap PO BID 03/30/23 03/30/23 03/30/23 History torsemide 20 mg tablet 20 mg PO DAILY@1200 03/30/23 03/30/23 03/29/23 History ketoconazole 2 % topical cream 1 appl topical BID PRN Skin 04/01/23 04/01/23 Unknown History Irritation Physical Exam Vital Signs: Last Vital Signs Temp 96.8 F 04/04/23 07:32 Pulse 70 04/04/23 07:32 Resp 18 04/04/23 07:32 BP 146/63 H 04/04/23 07:32 Pulse Ox 99 04/04/23 07:32 O2 Del Method Room Air 04/04/23 07:32 BMI result Body Mass Index 52.8 Obese. Comfortable. Neck supple no JVD. Lungs air entry equal Heart S1-S2 heard no gallop. Abdomen soft. Extremities no edema. Results Lab Results 04/05/23 05:39 04/04/23 05:59 Lab results: Chemistry 04/02/23 04/04/23 06:11 05:59 Sodium 141 143 Potassium 3.4 3.5 Carbon Dioxide 20 L 23 BUN 40 H 36 H Creatinine 2.42 H 2.35 H Calcium 7.7 L 8.2 L D Hematology 04/02/23 04/04/23 06:11 05:59 WBC 7.7 7.8 Hgb 11.5 L 12.0 L Plt Count 190 195 Assessment and Plan (1) CKD (chronic kidney disease) stage 3, GFR 30-59 ml/min: Status: Acute Plan MARGOTH superimposed on CKD. MARGOTH most likely due to hypoperfusion. Renal function is improving with cautious hydration. Keep intake more appropriate Continue overt nephrotoxic agents. Avoid hypotension Continue monitor renal function. Renal function should return to baseline once he is hemodynamically stable Temporarily hold diuretics Shall follow along with the team Procedures Date of Service Date of Service: 04/05/23
[2023-04-04] MEDS: Empagliflozin 10 MG TABLET PO (09:44)
[2023-04-04] MEDS: Ascorbic Acid 500 MG TABLET 1000 MG PO ×2 (09:44→22:29)
[2023-04-04] MEDS: Cyanocobalamin (Vitamin B-12) 100 MCG TABLET 200 MCG PO (09:44)
[2023-04-04] MEDS: 0.9 % Sodium Chloride Flush 3 ML SYRINGE IVFLUSH ×2 (09:45→18:01)
--- NOTE | 2023-04-04 11:04 | HO.PM.IMPN ---
Subjective Subjective Date of Service: 04/04/23 Interval History: Seen and evaluated this morning denies any pain, fever or chills NPO ovenright for ERCP ALP stable around 1000 no overnight events Review of Systems Review of Systems: Yes all other systems are reviewed and are negative Physical Exam Vital Signs: Vital Signs: Last Vital Signs Temp 96.8 F 04/04/23 07:32 Pulse 70 04/04/23 07:32 Resp 18 04/04/23 07:32 BP 146/63 H 04/04/23 07:32 Pulse Ox 99 04/04/23 07:32 O2 Del Method Room Air 04/04/23 07:32 BMI result Body Mass Index 52.8 Const: Other: Constitutional : Awake, interactive, morbidly obese, not in distress Neck : Normal inspection, Supple Cardiovascular : RRR, no JVP, no lower extremity edema Respiratory : good bilateral air entry, no crackles, wheezes or rhonchi Gastrointestinal: soft, lax, Normal bowel sounds, no significant tenderness with no surgical signs Skin : Warm, Dry Neurological : Alert & oriented x3, No focal deficit Objective Data Active Medications Acetaminophen (Acetaminophen 325 Mg Tablet) 650 mg PO Q6H PRN PRN Reason: Pain, Mild (Pain Scale 1-3) Amlodipine Besylate (Amlodipine Besylate 5 Mg Tablet) 5 mg PO DAILY@1200 [place]; Protocol Last Admin: 04/03/23 11:52 Dose: 5 mg Documented By: KRIS Ascorbic Acid (Ascorbic Acid 500 Mg Tablet) 1,000 mg PO BID [facility] Last Admin: 04/04/23 09:44 Dose: 1,000 mg Documented By: TINA Atorvastatin Calcium (Atorvastatin Calcium 80 Mg Tablet) 80 mg PO BEDTIME [facility] Last Admin: 04/03/23 21:06 Dose: 80 mg Documented By: YEFRI Cyanocobalamin (Cyanocobalamin (Vitamin B-12) 100 Mcg Tablet) 200 mcg PO DAILY [facility] Last Admin: 04/04/23 09:44 Dose: 200 mcg Documented By: TINA Dextrose (Dextrose 50 % 25 Gm/50 Ml Syringe) 25 gm IVPUSH Q15M PRN; Protocol PRN Reason: per Hypoglycemia Standing Ord. Empagliflozin (Empagliflozin 10 Mg Tablet) 10 mg PO DAILY [facility] Last Admin: 04/04/23 09:44 Dose: 10 mg Documented By: TINA Enoxaparin Sodium (Enoxaparin Sodium 100 Mg/Ml Syringe) 100 mg SUBCUT Q12H [facility] Last Admin: 04/03/23 08:20 Dose: 100 mg Documented By: KRIS Glucose (Glucose Gel 15 Gm Gel..Gram.) 15 gm PO Q15M PRN; Protocol PRN Reason: per Hypoglycemia Standing Ord. Ceftriaxone Sodium 1 gm/ (Sodium Chloride) 50 mls @ 100 mls/hr IV Q24H [facility] Last Infusion: 04/03/23 12:42 Dose: Infused Documented By: KRIS Insulin Glargine (Insulin Glargine,Hum.Rec.Anlog 100 Unit/Ml 10 Ml Vial) 25 unit SUBCUT BEDTIME [facility] Last Admin: 04/03/23 21:09 Dose: 12.5 unit Documented By: YEFRI Comments: pt after midnight npo for surgery. approved to give 12.5 units. Insulin Human Lispro (Insulin Lispro 100 Unit/Ml 3 Ml Vial) 5 unit SUBCUT QIDACHS [facility] Last Admin: 04/04/23 09:36 Dose: Not Given Documented By: TINA Non-Admin Reason: NPO Insulin Human Lispro (Insulin Lispro 100 Unit/Ml 3 Ml Vial) 0 unit SUBCUT QIDAS [facility]; Protocol Last Admin: 04/04/23 09:36 Dose: Not Given Documented By: TINA Non-Obed Reason: NPO Lactic Acid (Ammonium Lactate 12 % Lotion 226 Gm Bottle) 1 appl TOPICAL BID [facility]; Protocol Last Admin: 04/04/23 09:49 Dose: Not Given Documented By: TINA Non-Admin Reason: Patient Refused Pt Own Ketoconazole (2 % Cream) 1 appl TOPICAL BID PRN PRN Reason: Skin Irritation Last Admin: 04/04/23 09:48 Dose: 1 appl Documented By: TINA Omeprazole (Omeprazole 20 Mg Mathew.) 20 mg PO DAILY@0630 [facility] Last Admin: 04/04/23 06:40 Dose: 20 mg Documented By: YEFRI Ondansetron HCl (Ondansetron Hcl 4 Mg/2 Ml Vial) 4 mg IVPUSH Q8H PRN PRN Reason: Nausea and Vomiting Last Admin: 03/31/23 13:07 Dose: 4 mg Documented By: OPAL Sodium Chloride (0.9 % Sodium Chloride Flush 3 Ml Syringe) 3 ml IVFLUSH QSHIFT [facility] Last Admin: 04/04/23 09:45 Dose: 3 ml Documented By: TINA Tamsulosin HCl (Tamsulosin Hcl 0.4 Mg Capsule) 0.4 mg PO BEDTIME [facility] Last Admin: 04/03/23 21:06 Dose: 0.4 mg Documented By: YEFRI Labs 04/04/23 05:59 04/04/23 05:59 Labs: Laboratory Results - last 24 hr 04/03/23 04/03/23 04/03/23 11:15 16:24 20:00 MCV MCH MCHC RDW Plt Count MPV Immature Gran % (Auto) Neut % (Auto) Lymph % (Auto) [place] % (Auto) Eos % (Auto) Baso % (Auto) Lymph # (Auto) [place] # (Auto) Eos # (Auto) Baso # (Auto) Abs Immat Gran (auto) Absolute Neuts (auto) Absolute Nucleated RBC Nucleated RBC % (auto) PT INR Anion Gap Estim Creat Clear Calc Estimated GFR POC Glucose 180 H 178 H 209 H Fasting Glucose Calcium Total Bilirubin Direct Bilirubin AST ALT Alkaline Phosphatase Total Protein Albumin 04/04/23 04/04/23 05:59 07:31 MCV 88.6 MCH 27.8 MCHC 31.4 RDW 19.0 H Plt Count 195 MPV 10.6 Immature Gran % (Auto) 1.5 H Neut % (Auto) 71.6 Lymph % (Auto) 13.6 L [place] % (Auto) 8.3 Eos % (Auto) 4.6 H Baso % (Auto) 0.4 Lymph # (Auto) 1.1 L [place] # (Auto) 0.7 Eos # (Auto) 0.4 Baso # (Auto) 0.0 Abs Immat Gran (auto) 0.12 H Absolute Neuts (auto) 5.6 Absolute Nucleated RBC 0.000 Nucleated RBC % (auto) 0.0 PT 13.2 INR 1.1 Anion Gap 14 Estim Creat Clear Calc 44.4 Estimated GFR 27 POC Glucose 155 H Fasting Glucose 148 H Calcium 8.2 L D Total Bilirubin 1.0 Direct Bilirubin 0.6 H AST 68 H ALT 79 H Alkaline Phosphatase 1056 H Total Protein 6.6 Albumin 3.2 L Assessment and Plan (1) CKD (chronic kidney disease) stage 3, GFR 30-59 ml/min: Status: Acute (2) Chronic heart failure with preserved ejection fraction: Status: Acute (3) Common bile duct stone: Status: Acute (4) Acute UTI: Status: Acute Plan A 72 year old male w PMH of chronic afib, DM, CKD III, HTN, gout, morbid obesity, CKD IV, chronic diastolic and right sided CHF, presented with lower abdominal pain and weakness. Acute UTI recurrent problem Urine Cx growing E.Coli Continue Ceftriaxone started 03/30, to finish total of 7 days Abnormal biliary tree w transaminitis Elevated ALP, GGT CT scan with contrast concerning for biliary tree stricture, stone or mass GI and surgery input appreciated tolerating diet MRCP (At [facility]) showed large stone in his biliary tree for ERCP today Cardiology consult cleared the patient for surgery with moderate-high perioperative risk MARGOTH on CKD3 Cr stable around 2.3 hold nephrotoxic urine studies Nephrology consult follow BMP Acute hypokalemia resolved after IV and PO replacement follow BMP Acute hypomagnesemia resolved after replacement Diarrhea Hx of cdif colonizer only imodium DVT PPx Eliquis The paitent will need overnight hospital stay for evaluation of abd pain, urine infection pending final cultures and specialists opinion. for ERCP today Quality Stroke Does the patient have a stroke diagnosis?: No VTE Prior VTE?: No VTE Risk Level:: Medical - moderate - high VTE Device Contraindication: Treatment Not Indicated VTE Drug Contraindication: N/A - Med Ordered
--- NOTE | 2023-04-04 15:03 | P.BOP_ITS ---
Brief Operative Note Date of Service: 04/04/23 Pre-op diagnosis: cbd stone Post-op diagnosis: same Procedure: ERCP Surgeon: Mayank Lange MD Anesthesia: GETA Was an Certified Bench Jeweler Technician used for this Procedure?: No Estimated blood loss (mL): 2 Pathology: none sent Condition: stable Disposition: PACU
--- NOTE | 2023-04-04 15:04 | PM.EVENT ---
Event Note Date of Service: 04/04/23 Event Note: ERCP [id number] cbd stone removed with balloon following sphincterotomy. Cystic duct not seen to fill on cholangiography. Good drainage of clear bile post stone removal. Rec: advance diet Ccy per Dr Dai Time Spent With Patient Time: Total time managing care of this patient today ____ minutes.
--- NOTE | 2023-04-04 15:33 | P.CONAN_ITS ---
HPI - Anesthesia Eval Consult details Narrative: 72 M morbidly obese, large body habitus, p/f ERCP Discussed risk of complicatons related to mech vent including possibility of post-induction cancellation if unable to ventilate in prone position. Risk of arrhythmia and KS per cardiology eval. Anesthesia Pre-Procedure Meds Is the patient on any of the following meds?: Any other SGL-1 drugs or drugs that delay gastric emptying If Yes to any meds - educate patient: Pt education - increased risk of aspiration PMFSH Active Problems Active Problems: All Active Problems (Updated 04/04/23 @ 09:39 by Yimi Bob MD) CKD (chronic kidney disease) stage 3, GFR 30-59 ml/min (Acute) Chronic right heart failure (Acute) Chronic heart failure with preserved ejection fraction (Acute) Preoperative cardiovascular examination (Acute) Common bile duct stone (Acute) Hypomagnesemia (Acute) Acute hypokalemia (Acute) Abnormal CT of the abdomen (Acute) Diarrhea (Acute) Acute UTI (Acute) Abdominal pain (Acute) Acute on chronic kidney failure (Acute) Diabetes (Acute) Kidney disease (Acute) Hypertension (Acute) Heart failure with preserved ejection fraction (Acute) Chronic atrial fibrillation (Acute) CHF (congestive heart failure) (Acute) Infection due to ESBL-producing Escherichia coli (Acute) Osteomyelitis (Acute) Lymphedema (Acute) Varicose veins of right lower extremity with inflammation (Acute) Past Medical History Medical History Abnormal CT of the abdomen Acute UTI Diabetes Morbid obesity Chronic atrial fibrillation History of ESBL E. 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) Alcohol intake: never Comment: pt refuses Patient Tobacco Use Status: Never used Tobacco Advance Directives Date on File: 05/16/22 service: Yes Current occupational status: retired Meds Allergies Allergy/AdvReac Type Severity Reaction Status Date / Time Penicillins AdvReac Intermediate HALLUCINATIONS, Verified 09/15/22 13:33 SWEATS Active Medications: Current Medications Acetaminophen (Acetaminophen 325 Mg Tablet) 650 mg PO Q6H PRN PRN Reason: Pain, Mild (Pain Scale 1-3) Amlodipine Besylate (Amlodipine Besylate 5 Mg Tablet) 5 mg PO DAILY@1200 [place]; Protocol Last Admin: 04/03/23 11:52 Dose: 5 mg Ascorbic Acid (Ascorbic Acid 500 Mg Tablet) 1,000 mg PO BID [facility] Last Admin: 04/04/23 09:44 Dose: 1,000 mg Atorvastatin Calcium (Atorvastatin Calcium 80 Mg Tablet) 80 mg PO BEDTIME [facility] Last Admin: 04/03/23 21:06 Dose: 80 mg Cyanocobalamin (Cyanocobalamin (Vitamin B-12) 100 Mcg Tablet) 200 mcg PO DAILY [facility] Last Admin: 04/04/23 09:44 Dose: 200 mcg Dextrose (Dextrose 50 % 25 Gm/50 Ml Syringe) 25 gm IVPUSH Q15M PRN; Protocol PRN Reason: per Hypoglycemia Standing Ord. Empagliflozin (Empagliflozin 10 Mg Tablet) 10 mg PO DAILY [facility] Last Admin: 04/04/23 09:44 Dose: 10 mg Enoxaparin Sodium (Enoxaparin Sodium 100 Mg/Ml Syringe) 100 mg SUBCUT Q12H [facility] Last Admin: 04/03/23 08:20 Dose: 100 mg Glucose (Glucose Gel 15 Gm Gel..Gram.) 15 gm PO Q15M PRN; Protocol PRN Reason: per Hypoglycemia Standing Ord. Ceftriaxone Sodium 1 gm/ (Sodium Chloride) 50 mls @ 100 mls/hr IV Q24H [facility] Last Infusion: 04/03/23 12:42 Dose: Infused Insulin Glargine (Insulin Glargine,Hum.Rec.Anlog 100 Unit/Ml 10 Ml Vial) 25 unit SUBCUT BEDTIME [facility] Last Admin: 04/03/23 21:09 Dose: 12.5 unit Insulin Human Lispro (Insulin Lispro 100 Unit/Ml 3 Ml Vial) 5 unit SUBCUT QIDACHS [facility] Last Admin: 04/04/23 14:14 Dose: Not Given Insulin Human Lispro (Insulin Lispro 100 Unit/Ml 3 Ml Vial) 0 unit SUBCUT QIDACHS [facility]; Protocol Last Admin: 04/04/23 14:15 Dose: Not Given Lactic Acid (Ammonium Lactate 12 % Lotion 226 Gm Bottle) 1 appl TOPICAL BID [facility]; Protocol Last Admin: 04/04/23 09:49 Dose: Not Given Pt Own Ketoconazole (2 % Cream) 1 appl TOPICAL BID PRN PRN Reason: Skin Irritation Last Admin: 04/04/23 09:48 Dose: 1 appl Omeprazole (Omeprazole 20 Mg Capsule.Dr) 20 mg PO DAILY@0630 [facility] Last Admin: 04/04/23 06:40 Dose: 20 mg Ondansetron HCl (Ondansetron Hcl 4 Mg/2 Ml Vial) 4 mg IVPUSH Q8H PRN PRN Reason: Nausea and Vomiting Last Admin: 03/31/23 13:07 Dose: 4 mg Sodium Chloride (0.9 % Sodium Chloride Flush 3 Ml Syringe) 3 ml IVFLUSH QSHIFT [facility] Last Admin: 04/04/23 09:45 Dose: 3 ml Tamsulosin HCl (Tamsulosin Hcl 0.4 Mg Capsule) 0.4 mg PO BEDTIME [facility] Last Admin: 04/03/23 21:06 Dose: 0.4 mg Home Medications Medication Instructions Recorded Confirmed Last Taken Type allopurinol 300 mg tablet 300 mg PO DAILY 11/03/20 03/30/23 03/30/23 History ascorbic acid (vitamin C) 1,000 mg 1,000 mg PO BID 11/03/20 03/30/23 03/30/23 History tablet (Vitamin C) cholecalciferol (vitamin D3) 50 50 mcg PO DAILY 11/03/20 03/30/23 03/30/23 Histo ry mcg (2,000 unit) capsule insulin aspart U-100 100 unit/mL 14 unit subcut DAILY@1200 11/03/20 03/30/23 03/29/23 History subcutaneous solution (Novolog U-100 Insulin aspart) insulin aspart U-100 100 unit/mL 20 unit subcut DAILY@1630 11/03/20 03/30/23 03/29/23 History subcutaneous solution (Novolog U-100 Insulin aspart) methenamine hippurate 1 gram tablet 1 g PO BID 11/03/20 03/30/23 03/30/23 History tamsulosin 0.4 mg capsule 0.4 mg PO BEDTIME 11/03/20 03/30/23 03/29/23 History cyanocobalamin (vitamin B-12) 100 200 mcg PO DAILY 05/02/22 03/30/23 03/30/23 History mcg tablet insulin glargine 100 unit/mL (3 36 unit subcut BEDTIME@2100 05/02/22 03/30/23 03/29/23 History mL) subcutaneous pen (Lantus Solostar U-100 Insulin) rosuvastatin 40 mg tablet 40 mg PO BEDTIME 05/02/22 03/30/23 03/29/23 History amlodipine 5 mg tablet 5 mg PO DAILY@1200 08/02/22 03/30/23 03/29/23 History insulin aspart U-100 100 unit/mL 12 unit subcut DAILY@0800 08/02/22 03/30/23 03/30/23 History subcutaneous solution (Novolog U-100 Insulin aspart) Probiotic 1 cap PO BID 03/30/23 03/30/23 03/30/23 History torsemide 20 mg tablet 20 mg PO DAILY@1200 03/30/23 03/30/23 03/29/23 History ketoconazole 2 % topical cream 1 appl topical BID PRN Skin 04/01/23 04/01/23 Unknown History Irritation Exam Exam Date and Time: ECG Atrial fibrillation Left axis deviation Right bundle branch block Height,Weight and Vital Signs: Height 5 ft 10 in Weight 368 lb 2.751 oz Last Vital Signs Temp 97.6 F 04/04/23 15:05 Pulse 68 04/04/23 15:20 Resp 16 04/04/23 15:20 BP 158/77 H 04/04/23 15:20 Pulse Ox 99 04/04/23 15:20 O2 Del Method Room Air 04/04/23 15:20 O2 Flow Rate 6 04/04/23 15:05 Pertinent Lab Results Pertinent Lab Results: Laboratory Tests 03/30/23 03/30/23 03/30/23 11:45 11:48 13:05 WBC 10.7 RBC 4.31 L Hgb 11.9 L Hct 37.3 L MCV 86.5 MCH 27.6 MCHC 31.9 RDW 17.9 H Plt Count 192 MPV 10.6 Immature Gran % (Auto) 0.8 H Neut % (Auto) 84.1 H Lymph % (Auto) 6.3 L [place] % (Auto) 6.0 Eos % (Auto) 2.5 Baso % (Auto) 0.3 Lymph # (Auto) 0.7 L [place] # (Auto) 0.6 Eos # (Auto) 0.3 Baso # (Auto) 0.0 Abs Immat Gran (auto) 0.08 H Absolute Neuts (auto) 9.0 H Absolute Nucleated RBC 0.000 Nucleated RBC % (auto) 0.0 Hold Purple Top PT INR Sodium 138 Potassium 2.5 L* D Chloride 103 Carbon Dioxide 23 Anion Gap 15 BUN 44 H Creatinine 2.90 H Estim Creat Clear Calc 36.0 Estimated GFR 21 POC Glucose Random Glucose 259 H Fasting Glucose Lactic Acid 0.8 Calcium 7.3 L D Magnesium 1.3 L* Total Bilirubin 1.5 H Direct Bilirubin GGT AST 53 H ALT 54 H Alkaline Phosphatase 1092 H B-Natriuretic Peptide 109 H Total Protein 6.8 Albumin 3.3 L Lipase 26 Prostate Specific Ag Urine Color Yellow Urine Appearance Turbid Urine pH 5.5 Ur Specific [place] 1.010 Urine Protein 30 (1+) H Urine Glucose (UA) 500 H Urine Ketones Negative Urine Blood Small (1+) H Urine Nitrite Negative Ur Leukocyte Esterase Large (3+) H Urine RBC 0-2 Urine WBC >50 H Urine WBC Clumps Present Ur Squamous Epith Cells 0-2 Urine Bacteria 4+ Hyaline Casts 0-2 Stl C. cayetanensis PCR Not Detected Stool Rotavirus A PCR Not Detected Stl Adenov F 40/41 PCR Not Detected Stool Astrovirus (PCR) Not Detected Stool Campylobacter PCR Not Detected Stool Cryptosporidium PCR Not Detected Stl Sh Tox Pr E STEC PCR Not Detected Stool E coli O157 PCR Not applicable Stl Enterotoxigenic E PCR Not Detected Stool EPEC (PCR) Not Detected Stool EAEC (PCR) Not Detected Stl E. histolytica PCR Not Detected Stool Giardia Lamblia PCR Not Detected Stl P. shigelloides PCR Not Detected Stool Salmonella PCR Not Detected Stool Sapovirus (PCR) Not Detected Stl Shigella/EIEC PCR Not Detected St Y.enterocolitica PCR Not Detected Stool Vibrio (PCR) Not Detected Stl Vibrio cholerae PCR Not Detected Stl Norovirus GI/GII PCR Not Detected C. difficile Tox B Gene COVID-19 ([facility]) Negative COVID-19 Clin Com See Note Influenza Type A (LARRY) Negative Influenza Type B (LARRY) Negative Influenza A & B Note See Note 03/30/23 03/30/23 03/30/23 14:43 17:29 19:15 WBC RBC Hgb Hct MCV MCH MCHC RDW Plt Count MPV Immature Gran % (Auto) Neut % (Auto) Lymph % (Auto) [place] % (Auto) Eos % (Auto) Baso % (Auto) Lymph # (Auto) [place] # (Auto) Eos # (Auto) Baso # (Auto) Abs Immat Gran (auto) Absolute Neuts (auto) Absolute Nucleated RBC Nucleated RBC % (auto) Hold Purple Top PT INR Sodium 141 Potassium 2.6 L Chloride 104 Carbon Dioxide 22 Anion Gap 18 BUN 47 H Creatinine 2.99 H Estim Creat Clear Calc 34.9 Estimated GFR 21 POC Glucose 188 H 231 H Random Glucose 196 H Fasting Glucose Lactic Acid Calcium 7.4 L Magnesium 1.8 Total Bilirubin 1.1 H Direct Bilirubin GGT AST 48 H ALT 53 H Alkaline Phosphatase 956 H B-Natriuretic Peptide Total Protein 6.5 Albumin 3.3 L Lipase Prostate Specific Ag Urine Color Urine Appearance Urine pH Ur Specific [place] Urine Protein Urine Glucose (UA) Urine Ketones Urine Blood Urine Nitrite Ur Leukocyte Esterase Urine RBC Urine WBC Urine WBC Clumps Ur Squamous Epith Cells Urine Bacteria Hyaline Casts Stl C. cayetanensis PCR Stool Rotavirus A PCR Stl Adenov F 40/41 PCR Stool Astrovirus (PCR) Stool Campylobacter PCR Stool Cryptosporidium PCR Stl Sh Tox Pr E STEC PCR Stool E coli O157 PCR Stl Enterotoxigenic E PCR Stool EPEC (PCR) Stool EAEC (PCR) Stl E. histolytica PCR Stool Giardia Lamblia PCR Stl P. shigelloides PCR Stool Salmonella PCR Stool Sapovirus (PCR) Stl Shigella/EIEC PCR St Y.enterocolitica PCR Stool Vibrio (PCR) Stl Vibrio cholerae PCR Stl Norovirus GI/GII PCR C. difficile Tox B Gene COVID-19 ([facility]) COVID-19 Clin Com Influenza Type A (LARRY) Influenza Type B (LARRY) Influenza A & B Note 03/30/23 03/30/23 03/31/23 19:36 23:42 00:05 WBC RBC Hgb Hct MCV MCH MCHC RDW Plt Count MPV Immature Gran % (Auto) Neut % (Auto) Lymph % (Auto) [place] % (Auto) Eos % (Auto) Baso % (Auto) Lymph # (Auto) [place] # (Auto) Eos # (Auto) Baso # (Auto) Abs Immat Gran (auto) Absolute Neuts (auto) Absolute Nucleated RBC Nucleated RBC % (auto) Hold Purple Top PT INR Sodium Potassium Chloride Carbon Dioxide Anion Gap BUN Creatinine Estim Creat Clear Calc Estimated GFR POC Glucose 53 L* 76 Random Glucose Fasting Glucose Lactic Acid Calcium Magnesium Total Bilirubin Direct Bilirubin GGT AST ALT Alkaline Phosphatase B-Natriuretic Peptide Total Protein Albumin Lipase Prostate Specific Ag Urine Color Urine Appearance Urine pH Ur Specific [place] Urine Protein Urine Glucose (UA) Urine Ketones Urine Blood Urine Nitrite Ur Leukocyte Esterase Urine RBC Urine WBC Urine WBC Clumps Ur Squamous Epith Cells Urine Bacteria Hyaline Casts Stl C. cayetanensis PCR Stool Rotavirus A PCR Stl Adenov F 40 PCR Stool Astrovirus (PCR) Stool Campylobacter PCR Stool Cryptosporidium PCR Stl Sh Tox Pr E STEC PCR Stool E coli O157 PCR Stl Enterotoxigenic E PCR Stool EPEC (PCR) Stool EAEC (PCR) Stl E. histolytica PCR Stool Giardia Lamblia PCR Stl P. shigelloides PCR Stool Salmonella PCR Stool Sapovirus (PCR) Stl Shigella/EIEC PCR St Y.enterocolitica PCR Stool Vibrio (PCR) Stl Vibrio cholerae PCR Stl Norovirus GI/GII PCR C. difficile Tox B Gene NEGATIVE COVID-19 ([facility]) COVID-19 Clin Com Influenza Type A (LARRY) Influenza Type B (LARRY) Influenza A & B Note 03/31/23 03/31/23 03/31/23 05:24 07:35 10:57 WBC 10.5 RBC 4.31 L Hgb 12.1 L Hct 38.3 L MCV 88.9 MCH 28.1 MCHC 31.6 RDW 18.0 H Plt Count 213 MPV 11.2 Immature Gran % (Auto) 1.0 H Neut % (Auto) 78.6 H Lymph % (Auto) 9.1 L [place] % (Auto) 7.9 Eos % (Auto) 3.1 Baso % (Auto) 0.3 Lymph # (Auto) 1.0 L [place] # (Auto) 0.8 Eos # (Auto) 0.3 Baso # (Auto) 0.0 Abs Immat Gran (auto) 0.10 H Absolute Neuts (auto) 8.3 Absolute Nucleated RBC 0.000 Nucleated RBC % (auto) 0.0 Hold Purple Top PT 17.4 H INR 1.4 H Sodium 139 Potassium 3.0 L Chloride 103 Carbon Dioxide 21 L Anion Gap 18 BUN 46 H Creatinine 2.87 H Estim Creat Clear Calc 36.3 Estimated GFR 22 POC Glucose 135 H 195 H Random Glucose 160 H Fasting Glucose Lactic Acid Calcium 7.4 L Magnesium Total Bilirubin 1.0 Direct Bilirubin 0.6 H GGT 680 H AST 48 H ALT 52 H Alkaline Phosphatase 1022 H B-Natriuretic Peptide Total Protein 6.7 Albumin 3.4 L Lipase Prostate Specific Ag Urine Color Urine Appearance Urine pH Ur Specific [place] Urine Protein Urine Glucose (UA) Urine Ketones Urine Blood Urine Nitrite Ur Leukocyte Esterase Urine RBC Urine WBC Urine WBC Clumps Ur Squamous Epith Cells Urine Bacteria Hyaline Casts Stl C. cayetanensis PCR Stool Rotavirus A PCR Stl Adenov F 40/41 PCR Stool Astrovirus (PCR) Stool Campylobacter PCR Stool Cryptosporidium PCR Stl Sh Tox Pr E STEC PCR Stool E coli O157 PCR Stl Enterotoxigenic E PCR Stool EPEC (PCR) Stool EAEC (PCR) Stl E. histolytica PCR Stool Giardia Lamblia PCR Stl P. shigelloides PCR Stool Salmonella PCR Stool Sapovirus (PCR) Stl Shigella/EIEC PCR St Y.enterocolitica PCR Stool Vibrio (PCR) Stl Vibrio cholerae PCR Stl Norovirus GI/GII PCR C. difficile Tox B Gene COVID-19 ([facility]) COVID-19 Clin Com Influenza Type A (LARRY) Influenza Type B ([facility]ARRY) Influenza A & B Note 03/31/23 03/31/23 03/31/23 12:18 15:56 19:37 WBC RBC Hgb Hct MCV MCH MCHC RDW Plt Count MPV Immature Gran % (Auto) Neut % (Auto) Lymph % (Auto) [place] % (Auto) Eos % (Auto) Baso % (Auto) Lymph # (Auto) [place] # (Auto) Eos # (Auto) Baso # (Auto) Abs Immat Gran (auto) Absolute Neuts (auto) Absolute Nucleated RBC Nucleated RBC % (auto) Hold Purple Top PT INR Sodium Potassium Chloride Carbon Dioxide Anion Gap BUN Creatinine Estim Creat Clear Calc Estimated GFR POC Glucose 137 H 181 H Random Glucose Fasting Glucose Lactic Acid Calcium Magnesium Total Bilirubin Direct Bilirubin GGT AST ALT Alkaline Phosphatase B-Natriuretic Peptide Total Protein Albumin Lipase Prostate Specific Ag 0.25 Urine Color Urine Appearance Urine pH Ur Specific [place] Urine Protein Urine Glucose (UA) Urine Ketones Urine Blood Urine Nitrite Ur Leukocyte Esterase Urine RBC Urine WBC Urine WBC Clumps Ur Squamous Epith Cells Urine Bacteria Hyaline Casts Stl C. cayetanensis PCR Stool Rotavirus A PCR Stl Adenov F PCR Stool Astrovirus (PCR) Stool Campylobacter PCR Stool Cryptosporidium PCR Stl Sh Tox Pr E STEC PCR Stool E coli O157 PCR Stl Enterotoxigenic E PCR Stool EPEC (PCR) Stool EAEC (PCR) Stl E. histolytica PCR Stool Giardia Lamblia PCR Stl P. shigelloides PCR Stool Salmonella PCR Stool Sapovirus (PCR) Stl Shigella/EIEC PCR St Y.enterocolitica PCR Stool Vibrio (PCR) Stl Vibrio cholerae PCR Stl Norovirus GI/GII PCR C. difficile Tox B Gene COVID-19 ([facility]) COVID-19 Clin Com Influenza Type A ([facility]ARRY) Influenza Type B ([facility]ARRY) Influenza A & B Note 04/01/23 04/01/23 04/01/23 05:27 07:26 11:37 WBC RBC Hgb Hct MCV MCH MCHC RDW Plt Count MPV Immature Gran % (Auto) Neut % (Auto) Lymph % (Auto) [place] % (Auto) Eos % (Auto) Baso % (Auto) Lymph # (Auto) [place] # (Auto) Eos # (Auto) Baso # (Auto) Abs Immat Gran (auto) Absolute Neuts (auto) Absolute Nucleated RBC Nucleated RBC % (auto) Hold Purple Top SEE NOTE PT INR Sodium 140 Potassium 3.3 Chloride 107 Carbon Dioxide 22 Anion Gap 14 BUN 42 H Creatinine 2.56 H Estim Creat Clear Calc 40.8 Estimated GFR 25 POC Glucose 122 H 219 H Random Glucose 129 H Fasting Glucose Lactic Acid Calcium 7.8 L Magnesium Total Bilirubin 1.0 Direct Bilirubin 0.7 H GGT AST 96 H ALT 76 H Alkaline Phosphatase 1040 H B-Natriuretic Peptide Total Protein 6.4 L Albumin 3.2 L Lipase Prostate Specific Ag Urine Color Urine Appearance Urine pH Ur Specific [place] Urine Protein Urine Glucose (UA) Urine Ketones Urine Blood Urine Nitrite Ur Leukocyte Esterase Urine RBC Urine WBC Urine WBC Clumps Ur Squamous Epith Cells Urine Bacteria Hyaline Casts Stl C. cayetanensis PCR Stool Rotavirus A PCR Stl Adenov F PCR Stool Astrovirus (PCR) Stool Campylobacter PCR Stool Cryptosporidium PCR Stl Sh Tox Pr E STEC PCR Stool E coli O157 PCR Stl Enterotoxigenic E PCR Stool EPEC (PCR) Stool EAEC (PCR) Stl E. histolytica PCR Stool Giardia Lamblia PCR Stl P. shigelloides PCR Stool Salmonella PCR Stool Sapovirus (PCR) Stl Shigella/EIEC PCR St Y.enterocolitica PCR Stool Vibrio (PCR) Stl Vibrio cholerae PCR Stl Norovirus GI/GII PCR C. difficile Tox B Gene COVID-19 ([facility]) COVID-19 Clin Com Influenza Type A (LARRY) Influenza Type B (LARRY) Influenza A & B Note 04/01/23 04/01/23 04/02/23 16:03 19:27 06:11 WBC 7.7 RBC 4.11 L Hgb 11.5 L Hct 35.6 L MCV 86.6 MCH 28.0 MCHC 32.3 RDW 18.4 H Plt Count 190 MPV 10.7 Immature Gran % (Auto) Neut % (Auto) Lymph % (Auto) [place] % (Auto) Eos % (Auto) Baso % (Auto) Lymph # (Auto) [place] # (Auto) Eos # (Auto) Baso # (Auto) Abs Immat Gran (auto) Absolute Neuts (auto) Absolute Nucleated RBC 0.000 Nucleated RBC % (auto) 0.0 Hold Purple Top PT 15.0 H INR 1.2 H Sodium 141 Potassium 3.4 Chloride 108 Carbon Dioxide 20 L Anion Gap 16 BUN 40 H Creatinine 2.42 H Estim Creat Clear Calc 43.1 Estimated GFR 26 POC Glucose 136 H 177 H Random Glucose 145 H Fasting Glucose Lactic Acid Calcium 7.7 L Magnesium Total Bilirubin 1.2 H Direct Bilirubin 0.9 H GGT AST 72 H ALT 69 H Alkaline Phosphatase 1117 H B-Natriuretic Peptide Total Protein 6.2 L Albumin 3.1 L Lipase Prostate Specific Ag Urine Color Urine Appearance Urine pH Ur Specific [place] Urine Protein Urine Glucose (UA) Urine Ketones Urine Blood Urine Nitrite Ur Leukocyte Esterase Urine RBC Urine WBC Urine WBC Clumps Ur Squamous Epith Cells Urine Bacteria Hyaline Casts Stl C. cayetanensis PCR Stool Rotavirus A PCR Stl Adenov F 40/41 PCR Stool Astrovirus (PCR) Stool Campylobacter PCR Stool Cryptosporidium PCR Stl Sh Tox Pr E STEC PCR Stool E coli O157 PCR Stl Enterotoxigenic E PCR Stool EPEC (PCR) Stool EAEC (PCR) Stl E. histolytica PCR Stool Giardia Lamblia PCR Stl P. shigelloides PCR Stool Salmonella PCR Stool Sapovirus (PCR) Stl Shigella/EIEC PCR St Y.enterocolitica PCR Stool Vibrio (PCR) Stl Vibrio cholerae PCR Stl Norovirus GI/GII PCR C. difficile Tox B Gene COVID-19 ([facility]) COVID-19 Clin Com Influenza Type A (LARRY) Influenza Type B ([facility]) Influenza A & B Note 04/02/23 04/02/23 04/02/23 07:33 08:07 11:13 WBC RBC Hgb Hct MCV MCH MCHC RDW Plt Count MPV Immature Gran % (Auto) Neut % (Auto) Lymph % (Auto) [place] % (Auto) Eos % (Auto) Baso % (Auto) Lymph # (Auto) [place] # (Auto) Eos # (Auto) Baso # (Auto) Abs Immat Gran (auto) Absolute Neuts (auto) Absolute Nucleated RBC Nucleated RBC % (auto) Hold Purple Top PT INR Sodium Potassium Chloride Carbon Dioxide Anion Gap BUN Creatinine Estim Creat Clear Calc Estimated GFR POC Glucose 125 H 156 H 170 H Random Glucose Fasting Glucose Lactic Acid Calcium Magnesium Total Bilirubin Direct Bilirubin GGT AST ALT Alkaline Phosphatase B-Natriuretic Peptide Total Protein Albumin Lipase Prostate Specific Ag Urine Color Urine Appearance Urine pH Ur Specific [place] Urine Protein Urine Glucose (UA) Urine Ketones Urine Blood Urine Nitrite Ur Leukocyte Esterase Urine RBC Urine WBC Urine WBC Clumps Ur Squamous Epith Cells Urine Bacteria Hyaline Casts Stl C. cayetanensis PCR Stool Rotavirus A PCR Stl Adenov F 40/41 PCR Stool Astrovirus (PCR) Stool Campylobacter PCR Stool Cryptosporidium PCR Stl Sh Tox Pr E STEC PCR Stool E coli O157 PCR Stl Enterotoxigenic E PCR Stool EPEC (PCR) Stool EAEC (PCR) Stl E. histolytica PCR Stool Giardia Lamblia PCR Stl P. shigelloides PCR Stool Salmonella PCR Stool Sapovirus (PCR) Stl Shigella/EIEC PCR St Y.enterocolitica PCR Stool Vibrio (PCR) Stl Vibrio cholerae PCR Stl Norovirus GI/GII PCR C. difficile Tox B Gene COVID-19 ([facility]) COVID-19 Clin Com Influenza Type A (LARRY) Influenza Type B ([facility]ARR[facility]) Influenza A & B Note 04/02/23 04/02/23 04/03/23 16:09 19:35 07:32 WBC RBC Hgb Hct MCV MCH MCHC RDW Plt Count MPV Immature Gran % (Auto) Neut % (Auto) Lymph % (Auto) [place] % (Auto) Eos % (Auto) Baso % (Auto) Lymph # (Auto) [place] # (Auto) Eos # (Auto) Baso # (Auto) Abs Immat Gran (auto) Absolute Neuts (auto) Absolute Nucleated RBC Nucleated RBC % (auto) Hold Purple Top PT INR Sodium Potassium Chloride Carbon Dioxide Anion Gap BUN Creatinine Estim Creat Clear Calc Estimated GFR POC Glucose 165 H 195 H 154 H Random Glucose Fasting Glucose Lactic Acid Calcium Magnesium Total Bilirubin Direct Bilirubin GGT AST ALT Alkaline Phosphatase B-Natriuretic Peptide Total Protein Albumin Lipase Prostate Specific Ag Urine Color Urine Appearance Urine pH Ur Specific [place] Urine Protein Urine Glucose (UA) Urine Ketones Urine Blood Urine Nitrite Ur Leukocyte Esterase Urine RBC Urine WBC Urine WBC Clumps Ur Squamous Epith Cells Urine Bacteria Hyaline Casts Stl C. cayetanensis PCR Stool Rotavirus A PCR Stl Adenov F 40/41 PCR Stool Astrovirus (PCR) Stool Campylobacter PCR Stool Cryptosporidium PCR Stl Sh Tox Pr E STEC PCR Stool E coli O157 PCR Stl Enterotoxigenic E PCR Stool EPEC (PCR) Stool EAEC (PCR) Stl E. histolytica PCR Stool Giardia Lamblia PCR Stl P. shigelloides PCR Stool Salmonella PCR Stool Sapovirus (PCR) Stl Shigella/EIEC PCR St Y.enterocolitica PCR Stool Vibrio (PCR) Stl Vibrio cholerae PCR Stl Norovirus GI/GII PCR C. difficile Tox B Gene COVID-19 ([facility]) COVID-19 Clin Com Influenza Type A (LARRY) Influenza Type B (LARRY) Influenza A & B Note 04/03/23 04/03/23 04/03/23 11:15 16:24 20:00 WBC RBC Hgb Hct MCV MCH MCHC RDW Plt Count MPV Immature Gran % (Auto) Neut % (Auto) Lymph % (Auto) [place] % (Auto) Eos % (Auto) Baso % (Auto) Lymph # (Auto) [place] # (Auto) Eos # (Auto) Baso # (Auto) Abs Immat Gran (auto) Absolute Neuts (auto) Absolute Nucleated RBC Nucleated RBC % (auto) Hold Purple Top PT INR Sodium Potassium Chloride Carbon Dioxide Anion Gap BUN Creatinine Estim Creat Clear Calc Estimated GFR POC Glucose 180 H 178 H 209 H Random Glucose Fasting Glucose Lactic Acid Calcium Magnesium Total Bilirubin Direct Bilirubin GGT AST ALT Alkaline Phosphatase B-Natriuretic Peptide Total Protein Albumin Lipase Prostate Specific Ag Urine Color Urine Appearance Urine pH Ur Specific [place] Urine Protein Urine Glucose (UA) Urine Ketones Urine Blood Urine Nitrite Ur Leukocyte Esterase Urine RBC Urine WBC Urine WBC Clumps Ur Squamous Epith Cells Urine Bacteria Hyaline Casts Stl C. cayetanensis PCR Stool Rotavirus A PCR Stl Adenov F PCR Stool Astrovirus (PCR) Stool Campylobacter PCR Stool Cryptosporidium PCR Stl Sh Tox Pr E STEC PCR Stool E coli O157 PCR Stl Enterotoxigenic E PCR Stool EPEC (PCR) Stool EAEC (PCR) Stl E. histolytica PCR Stool Giardia Lamblia PCR Stl P. shigelloides PCR Stool Salmonella PCR Stool Sapovirus (PCR) Stl Shigella/EIEC PCR St Y.enterocolitica PCR Stool Vibrio (PCR) Stl Vibrio cholerae PCR Stl Norovirus GI/GII PCR C. difficile Tox B Gene COVID-19 ([facility]) COVID-19 Clin Com Influenza Type A (LARRY) Influenza Type B (LARRY) Influenza A & B Note 04/04/23 04/04/23 05:59 07:31 WBC 7.8 RBC 4.31 L Hgb 12.0 L Hct 38.2 L MCV 88.6 MCH 27.8 MCHC 31.4 RDW 19.0 H Plt Count 195 MPV 10.6 Immature Gran % (Auto) 1.5 H Neut % (Auto) 71.6 Lymph % (Auto) 13.6 L [place] % (Auto) 8.3 Eos % (Auto) 4.6 H Baso % (Auto) 0.4 Lymph # (Auto) 1.1 L [place] # (Auto) 0.7 Eos # (Auto) 0.4 Baso # (Auto) 0.0 Abs Immat Gran (auto) 0.12 H Absolute Neuts (auto) 5.6 Absolute Nucleated RBC 0.000 Nucleated RBC % (auto) 0.0 Hold Purple Top PT 13.2 INR 1.1 Sodium 143 Potassium 3.5 Chloride 110 H Carbon Dioxide 23 Anion Gap 14 BUN 36 H Creatinine 2.35 H Estim Creat Clear Calc 44.4 Estimated GFR 27 POC Glucose 155 H Random Glucose Fasting Glucose 148 H Lactic Acid Calcium 8.2 L D Magnesium Total Bilirubin 1.0 Direct Bilirubin 0.6 H GGT AST 68 H ALT 79 H Alkaline Phosphatase 1056 H B-Natriuretic Peptide Total Protein 6.6 Albumin 3.2 L Lipase Prostate Specific Ag Urine Color Urine Appearance Urine pH Ur Specific [place] Urine Protein Urine Glucose (UA) Urine Ketones Urine Blood Urine Nitrite Ur Leukocyte Esterase Urine RBC Urine WBC Urine WBC Clumps Ur Squamous Epith Cells Urine Bacteria Hyaline Casts Stl C. cayetanensis PCR Stool Rotavirus A PCR Stl Adenov F 40/41 PCR Stool Astrovirus (PCR) Stool Campylobacter PCR Stool Cryptosporidium PCR Stl Sh Tox Pr E STEC PCR Stool E coli O157 PCR Stl Enterotoxigenic E PCR Stool EPEC (PCR) Stool EAEC (PCR) Stl E. histolytica PCR Stool Giardia Lamblia PCR Stl P. shigelloides PCR Stool Salmonella PCR Stool Sapovirus (PCR) Stl Shigella/EIEC PCR St Y.enterocolitica PCR Stool Vibrio (PCR) Stl Vibrio cholerae PCR Stl Norovirus GI/GII PCR C. difficile Tox B Gene COVID-19 ([facility]) COVID-19 Clin Com Influenza Type A (L[facility]Y) Influenza Type B (LARRY) Influenza A & B Note Airway Mallampati Class: I TM Dist: >3cm Neck ROM: Full Loose/Missing/Broken Teeth: Yes Assessment and Plan Assessment Anesthesia Assessment: Anesthesia Plan Discussed and Chart Reviewed Final Anesthetic Review Family History of Problems with Anesthesia: No History of Problems with Anesthesia: No NPO: Yes ASA Class: IV Final Preanesthetic Review: No Changes in Pt Med Stat, Meds/Allgs Chart Reviewed and Anes Risks/Benef Reviewed Patient Risk: High Procedure Risk: Intermediate Anesthetic Plan Anesthetic Plan: GA Disposition: Standard PACU
[2023-04-04 16:14] LABS: Glucose, Whole Blood 188 mg/dL (60-115)
[2023-04-04] MEDS: amLODIPine Besylate 5 MG TABLET PO (18:00)
[2023-04-04] MEDS: cefTRIAXone sodium 1 GM in 0.9 % Sodium Chloride 50 ML IV (18:05)
[2023-04-04 20:59] LABS: Glucose, Whole Blood 197 mg/dL (60-115)
[2023-04-04] MEDS: Atorvastatin Calcium 80 MG TABLET PO (22:29)
[2023-04-04] MEDS: Tamsulosin HCL 0.4 MG CAPSULE PO (22:29)
[2023-04-04] MEDS: Insulin Glargine,Hum.rec.anlog 100 UNIT/ML 10 ML VIAL 25 UNIT SUBCUT (22:29)
[2023-04-04] MEDS: Insulin Lispro 100 UNIT/ML 3 ML VIAL SUBCUT ×2 (22:30)
[2023-04-05] MEDS: 0.9 % Sodium Chloride Flush 3 ML SYRINGE IVFLUSH ×2 (00:40→08:01)
--- NOTE | 2023-04-05 01:13 | OP_ITS ---
DATE OF SERVICE: 04/04/2023 SURGEON: Mayank Lange MD INDICATIONS: Common bile duct stone on prior MR imaging and elevated liver function tests with right-sided abdominal pain. PREOPERATIVE DIAGNOSIS: POSTOPERATIVE DIAGNOSIS: PROCEDURE PERFORMED: ERCP with sphincterotomy and extraction of common bile duct stone. ESTIMATED BLOOD LOSS: COMPLICATIONS: ANESTHESIA: General. ASSISTANTS: SPECIMENS: DESCRIPTION OF PROCEDURE: A history and physical performed. The risks and benefits of the procedure were explained to the patient. Informed consent was obtained. The patient was placed in the prone position with a gel roll under the right shoulder. Care was taken to pad pressure points. The Olympus video duodenoscope was introduced into the esophagus, stomach, and duodenum. Examination was performed and the scope was removed. He tolerated the procedure well and was taken to recovery room in stable condition. FINDINGS: Limited examination of the esophagus, stomach, and duodenum was within normal limits. There was a moderate periampullary diverticulum. The major papilla was identified and the bile was seen to drain from the papilla. Cannulation of the common bile duct with a sphincterotome and guidewire was followed by cholangiography, which showed dilation of the common bile duct and 10 x 18 mm stone in the upper bile duct. A 10 mm sphincterotomy was performed with no immediate complications. Next, an 18 mm balloon was used to extract the stone. Following this, occlusion cholangiography was performed, which showed no residual filling defects. The cystic duct was not seen to fill. There was excellent drainage of clear yellow bile at the termination of the procedure. No pancreatogram was attempted or obtained. IMPRESSION: Common bile duct stone. RECOMMENDATIONS: 1. Low-fat diet today. 2. Cholecystectomy per Dr. Dai. MD TOM Gasca/LORI / [id number]
[2023-04-05 04:00] VITALS: BP 106/54; PULSE 61; RESP 18; TEMP 36; O2SAT 98
[2023-04-05] MEDS: Omeprazole 20 MG CAPSULE.DR PO (05:33)
[2023-04-05 07:18] LABS: Hemoglobin 11.6 g/dl (14.0-18.0); Mean Corpuscular HGB Conc 31.4 g/dl (31.0-36.0); Mean Corpuscular Hemoglobin 28.4 pg (27.0-33.0); Mean Corpuscular Volume 90.5 fL (80.0-98.0); Mean Platelet Volume 11.1 fL (9.4-12.4); Platelet Count 198 X10*3/uL (160-400); Red Blood Count 4.09 X10*6/uL (4.60-5.80); Red Cell Distribution Width 19.6 % (11.0-16.0); White Blood Count 7.3 X10*3/uL (4.8-10.8)
[2023-04-05 07:40] LABS: Alanine Aminotransferase 62 U/L (0-40); Albumin Level 3.2 g/dL (3.5-5.0); Alkaline Phosphatase 875 U/L (39-117); Aspartate Amino Transferase 44 U/L (5-37); Bilirubin Direct 0.6 mg/dL (0.0-0.5); Bilirubin Total 0.9 mg/dL (0.0-1.0); Total Protein 6.4 g/dL (6.5-8.0)
[2023-04-05 07:45] LABS: Glucose, Whole Blood 115 mg/dL (60-115)
[2023-04-05 08:00] VITALS: BP 147/65; PULSE 60; RESP 16; TEMP 36.7; O2SAT 99
[2023-04-05] MEDS: Insulin Lispro 100 UNIT/ML 3 ML VIAL SUBCUT ×3 (08:00→12:12)
[2023-04-05] MEDS: Cyanocobalamin (Vitamin B-12) 100 MCG TABLET 200 MCG PO (08:01)
[2023-04-05] MEDS: Empagliflozin 10 MG TABLET PO (08:01)
[2023-04-05] MEDS: Ascorbic Acid 500 MG TABLET 1000 MG PO (08:01)
--- NOTE | 2023-04-05 08:02 | HO.POSTANES ---
Post Anesthesia Evaluation Post Anesthesia Evaluation Date of Service: 04/05/23 Vital Signs: Vital Signs Temp Pulse Resp BP Pulse Ox O2 Del Method 04/05/23 04:00 96.8 F 61 18 106/54 L 98 Room Air Anesthesia: General Endotracheal-GETA Mental Status: Awake Pain Control: Satisfactory Nausea/Vomiting: None Hydration: Adequate Anesthesia-Related Issues: No Anes. Related Issues
--- NOTE | 2023-04-05 09:35 | PM.DS ---
DS: Providers Provider Date of Service: 04/05/23 Date of admission: 03/30/23 15:30 Primary care physician: Guzman Edouard Consults: 03/30/23 15:13 Consult to General Surgery Stat [place] [facility] [place] [facility] Reason for consultation: abd pain 03/30/23 15:30 Consult to General Surgery Routine Consulting Provider[place] [facility] [place] [facility] Reason for consultation: abdominal pain, abnormal biliary track, high ALP 03/30/23 15:35 Consult to Gastroenterology Routine Consulting Provider: Mayank Lange Reason for consultation: Abnormal ALP and gallbladder w dilated tree; stone? 03/31/23 14:58 Consult to Nephrology Routine Consulting Provider[place] [facility] [place] [facility] Reason for consultation: MARGOTH on CKD for eval and follow up 03/31/23 18:29 Consult to Cardiology Routine Consulting [place] [facility] [place] [facility] Reason for consultation: History of AFib and CHF. Needs Preop clearance Has provider been notified: No DS: Diagnosis Discharge Diagnosis (1) CKD (chronic kidney disease) stage 3, GFR 30-59 ml/min: Status: Acute (2) Chronic heart failure with preserved ejection fraction: Status: Acute (3) Common bile duct stone: Status: Acute (4) Acute UTI: Status: Acute DS: Summary Hospital Course Hospital Course: from initial hpi: 72 year old male w PMH of chronic afib, DM, CKD III, HTN, gout, morbid obesity, CKD IV, chronic diastolic and right sided CHF, presented with lower abdominal pain and weakness. he reports that for the last few days he has been complaining of lower abdominal pain, diarrhea , dyusrea with increase urgency. He also mentioned nausea and dyspepsia after having meals. no fever or chills, no chest pain, SOB or palpitations. His appetite has decreased and he lost 15lb over the last couple of months. He is supposed to follow with GI as outpatient for colonoscopy. In ED found to have urine infection. CT scan concerning for gallbladder problem with dilated biliary tree. admitted for further evaluation and treatment. hospital course: Patient was initially admitted for acute urinary tract infection, urine culture grew E coli, he was treated with IV ceftriaxone which began on 03/30/23. On discharge will continue 7 more days of p.o. cefuroxime. patient reports history of failure to clear with shorter courses. Course complicated by abdominal pain found to be due to choledocholithiasis. Underwent ERCP with stone extraction. Patient feeling better. Will follow up outpatient with Gastroenterology and General surgery. For acute kidney injury on chronic kidney disease stage III, creatinine stabilized around 2.3. Patient had acute hypokalemia and acute hypo magnesemia which resolved after replacement. Noted to have some diarrhea, was C diff colonizer only. Imodium was used.. For chronic atrial fibrillation was continued on anticoagulation. For BPH was continued on Flomax. For diabetes was continue on insulin. For morbid obesity weight loss recommended. For chronic diastolic and right-sided CHF was continued on maintenance diuretics. Time Attestation Discharge coordination time: Greater than 30 minutes Quality: Safe Use of Opioids Does Pt have an Active Cancer Diagnosis on the Problem List?: No Quality: Stroke Does the patient have a stroke diagnosis?: No Physical Exam Vital Signs: Vital Signs: Last Vital Signs Temp 98.1 F 04/05/23 08:00 Pulse 60 04/05/23 08:00 Resp 16 04/05/23 08:00 BP 147/65 H 04/05/23 08:00 Pulse Ox 99 04/05/23 08:00 O2 Del Method Room Air 04/05/23 08:00 O2 Flow Rate 6 04/04/23 15:05 BMI result Body Mass Index 52.8 Const: Other: Constitutional : Awake, interactive, morbidly obese, not in distress Neck : Normal inspection, Supple Cardiovascular : RRR, no JVP, no lower extremity edema Respiratory : good bilateral air entry, no crackles, wheezes or rhonchi Gastrointestinal: soft, lax, Normal bowel sounds, no significant tenderness with no surgical signs Skin : Warm, Dry Neurological : Alert & oriented x3, No focal deficit DS: Data Data Completed and Pending Completed studies during hospitalization [Text1]: Procedures Assistance with Respiratory Ventilation, Less than 24 Consecutive Hours, Continuous Positive Airway Pressure (09/07/22) Excision of Cecum, Via Natural or Artificial Opening Endoscopic, Diagnostic (05/03/22) Excision of Sigmoid Colon, Via Natural or Artificial Opening Endoscopic, Diagnostic (05/03/22) Insertion of Infusion Device into Right Brachial Vein, Percutaneous Approach (05/03/22) Labs on day of discharge: Laboratory Results - last 24 hr 04/04/23 04/04/23 04/05/23 16:09 20:51 05:39 WBC 7.3 RBC 4.09 L Hgb 11.6 L Hct 37.0 L MCV 90.5 MCH 28.4 MCHC 31.4 RDW 19.6 H Plt Count 198 MPV 11.1 Absolute Nucleated RBC 0.000 Nucleated RBC % (auto) 0.0 POC Glucose 188 H 197 H Total Bilirubin 0.9 Direct Bilirubin 0.6 H AST 44 H ALT 62 H Alkaline Phosphatase 875 H Total Protein 6.4 L Albumin 3.2 L 04/05/23 07:28 WBC RBC Hgb Hct MCV MCH MCHC RDW Plt Count MPV Absolute Nucleated RBC Nucleated RBC % (auto) POC Glucose 115 Total Bilirubin Direct Bilirubin AST ALT Alkaline Phosphatase Total Protein Albumin Discharge Plan Discharge Anticipated Discharge Date/Time: 04/05/23 09:32 Patient Disposition: Home, Self-Care Discharge Diagnosis: choledocolithiasis, uti Referrals: Guzman Edouard [Primary Care Provider] - 1 Week Discharge Medications: New cefuroxime axetil 500 mg tablet 500 mg PO BID Qty: 14 0RF Continued Eliquis 5 mg tablet 5 mg PO BID 30 Days Qty: 60 5RF methenamine hippurate 1 gram Tablet 1 g PO BID tamsulosin 0.4 mg Capsule 0.4 mg PO BEDTIME insulin aspart U-100 [Novolog U-100 Insulin aspart] 100 unit/mL Solution 14 unit SUBCUT DAILY@1200 insulin aspart U-100 [Novolog U-100 Insulin aspart] 100 unit/mL Solution 20 unit SUBCUT DAILY@1630 ascorbic acid (vitamin C) [Vitamin C] 1,000 mg Tablet 1,000 mg PO BID allopurinol 300 mg Tablet 300 mg PO DAILY cholecalciferol (vitamin D3) 50 mcg (2,000 unit) Capsule 50 mcg PO DAILY insulin glargine [Lantus Solostar U-100 Insulin] 100 unit/mL (3 mL) Insulin Pen 36 unit SUBCUT BEDTIME@2100 cyanocobalamin (vitamin B-12) 100 mcg Tablet 200 mcg PO DAILY rosuvastatin 40 mg Tablet 40 mg PO BEDTIME torsemide 20 mg Tablet 20 mg PO DAILY@1200 Probiotic 1 cap PO BID ketoconazole 2 % Cream 1 appl TOPICAL BID PRN (Reason: Skin Irritation) insulin aspart U-100 [Novolog U-100 Insulin aspart] 100 unit/mL Solution 12 unit SUBCUT DAILY@0800 amlodipine 5 mg Tablet 5 mg PO DAILY@1200 Jardiance 10 mg Tablet 10 mg PO DAILY Qty: 30 0RF pantoprazole [Protonix] 40 mg tablet,delayed release (DR/EC) 40 mg PO DAILY Qty: 30 0RF torsemide 20 mg tablet 60 mg PO DAILY 90 Days Qty: 270 1RF Discharge Orders: Discharge Order (Routine); Ordered 04/05/23 Ordered By: Dedrick Leos Diet: Advance to usual diet Activity on Discharge: As tolerated Stand Alone Forms: Patient Portal Discharge page Care Plan Goals: recovery Health Concerns: cbd stone, uti Plan of Treatment: 7 more days ceftin, follow up with gi Assessment: see above
--- NOTE | 2023-04-05 09:49 | MHC.CM.PN ---
EMR reviewed. Patient is medically cleared for DC home w/ new [facility], resume [employer] with [facility] [employer]. [facility] and [facility] aware of DC. to provide transportation home at 1pm. IMM delivered.
--- NOTE | 2023-04-05 10:00 | P.PNNP_ITS ---
Subjective Subjective Date of Service: 04/05/23 Interval history: Seen and evaluated this morning denies any pain, fever or chills NPO ovenright for ERCP ALP stable around 1000 no overnight events Physical Exam 2 Vital Signs: Vital Signs: Last Vital Signs Temp 98.1 F 04/05/23 08:00 Pulse 60 04/05/23 08:00 Resp 16 04/05/23 08:00 BP 147/65 H 04/05/23 08:00 Pulse Ox 99 04/05/23 08:00 O2 Del Method Room Air 04/05/23 08:00 O2 Flow Rate 6 04/04/23 15:05 BMI result Body Mass Index 52.8 Const: Other: Constitutional : Awake, interactive, morbidly obese, not in distress Neck : Normal inspection, Supple Cardiovascular : RRR, no JVP, no lower extremity edema Respiratory : good bilateral air entry, no crackles, wheezes or rhonchi Gastrointestinal: soft, lax, Normal bowel sounds, no significant tenderness with no surgical signs Skin : Warm, Dry Neurological : Alert & oriented x3, No focal deficit Objective Data Labs 04/05/23 05:39 04/04/23 05:59 Labs: Laboratory Results - last 24 hr 04/04/23 04/04/23 04/05/23 16:09 20:51 05:39 WBC 7.3 RBC 4.09 L Hgb 11.6 L Hct 37.0 L MCV 90.5 MCH 28.4 MCHC 31.4 RDW 19.6 H Plt Count 198 MPV 11.1 Absolute Nucleated RBC 0.000 Nucleated RBC % (auto) 0.0 POC Glucose 188 H 197 H Total Bilirubin 0.9 Direct Bilirubin 0.6 H AST 44 H ALT 62 H Alkaline Phosphatase 875 H Total Protein 6.4 L Albumin 3.2 L 04/05/23 07:28 WBC RBC Hgb Hct MCV MCH MCHC RDW Plt Count MPV Absolute Nucleated RBC Nucleated RBC % (auto) POC Glucose 115 Total Bilirubin Direct Bilirubin AST ALT Alkaline Phosphatase Total Protein Albumin Microbiology Microbiology Results: Microbiology 03/30/23 12:36 Blood - Venous Blood Culture - Final No growth after 5 days. 03/30/23 11:48 Blood - Venous Blood Culture - Final No growth after 5 days. 03/30/23 12:36 Urine clean catch - Urine scott top Urine Culture - Final Escherichia coli Procedures Date of Service Date of Service: 04/05/23 Assessment & Plan Assessment and plan (1) CKD (chronic kidney disease) stage 3, GFR 30-59 ml/min: Status: Acute Plan MARGOTH superimposed on CKD. MARGOTH most likely due to hypoperfusion. Renal function is improving with cautious hydration. Check labs tomorrow Keep intake more appropriate Continue overt nephrotoxic agents. Avoid hypotension Continue monitor renal function. Renal function should return to baseline Temporarily hold diuretics Shall follow along with the team Time Spent With Patient Time: Total time managing care of this patient today ____ minutes. Progress Note: Quality Stroke Does the patient have a stroke diagnosis?: No
[2023-04-05] MEDS: amLODIPine Besylate 5 MG TABLET PO (12:11)
--- NOTE | 2023-04-05 13:18 | W.MHC.F2F ---
Service Date Service Date: 04/05/23 Encounter Date of encounter: 04/05/23 Reasons for Services Signs and symptoms assessed: weakness Reason for penitentiary: medication management, medication treatment and teach disease management Homebound: Leaving the home is medically contraindicated at this time without the asist of a device and/or another person due th the listed conditions above and below. Reason homebound: unsteady gait / fall risk Certification: Based on the above findings, I certify that this patient is confined to the home and needs intermittent penitentiary care, physical therapy and/or speech therapy, or continues to need occupational therapy. The patient is under my care, and I have initiated the establishment of the plan of care. The patient will be followed by a physician who will periodically review the plan of care. Time Spent With Patient Time: Total time managing care of this patient today ____ minutes.
== END 2023-04-05 13:40 | disposition home or self-care (01) | DRG 445 ==
LOC: HO.ED 15:13 → HO.EDOVER 15:50 → HO.S3 16:06
PROVIDERS: Internal Medicine; Internal Medicine Gastroenterology; Physician Assistant; Admitting Provider Student in an Organized Health Care Education/Training Program; Emergency Provider Emergency Medicine; PCP Internal Medicine; Referring Provider Internal Medicine; Visit Provider Internal Medicine
PROC: 0FC98ZZ Extirpation of Matter from Common Bile Duct, Via Natural or Artificial Opening Endoscopic (ICD-10-PCS; CPT 43260; principal; 2023-04-04 12:30)
DX: K80.50 Calculus of bile duct without cholangitis or cholecystitis without obstruction (principal); I13.0 Hypertensive heart and chronic kidney disease with heart failure and stage 1 through stage 4 chronic kidney disease, or unspecified chronic kidney disease; I48.20 Chronic atrial fibrillation, unspecified; I50.32 Chronic diastolic (congestive) heart failure; N39.0 Urinary tract infection, site not specified; Z68.43 Body mass index [BMI] 50.0-59.9, adult; N17.9 Acute kidney failure, unspecified; B96.20 Unspecified Escherichia coli [E. coli] as the cause of diseases classified elsewhere; I27.29 Other secondary pulmonary hypertension; N18.30 Chronic kidney disease, stage 3 unspecified; D63.1 Anemia in chronic kidney disease; E66.01 Morbid (severe) obesity due to excess calories; I50.812 Chronic right heart failure; E83.42 Hypomagnesemia; E11.22 Type 2 diabetes mellitus with diabetic chronic kidney disease; Z87.440 Personal history of urinary (tract) infections; Z22.1 Carrier of other intestinal infectious diseases; Z88.0 Allergy status to penicillin; Z79.4 Long term (current) use of insulin; Z79.01 Long term (current) use of anticoagulants; Z79.84 Long term (current) use of oral hypoglycemic drugs; Z79.899 Other long term (current) drug therapy
CPT/HCPCS: 36415; 74176; 76705; 80048; 80053; 80076; 81001; 81003; 82947; 82977; 83605; 83690; 83735; 83880; 84153; 85025; 85027; 85610; 87040; 87086; 87088; 87186; 87493; 87502; 87507; 87635; 93005; 93306; 97162; 99285; C1769; J0330; J0696; J1610; J1650; J2405; J2704; J3010; J3430; J3475; J3480; Q9957; Q9967

== ENCOUNTER 2023-03-30 15:30 | Outpatient (BNV) | payer OTHER, SELFPAY | END 2023-04-02 07:00 | PROVIDERS: Admitting Provider Student in an Organized Health Care Education/Training Program; Emergency Provider Emergency Medicine; PCP Internal Medicine; Visit Provider Internal Medicine | DX: I36.1 Nonrheumatic tricuspid (valve) insufficiency (principal) | CPT/HCPCS: 93306 ==

== ENCOUNTER 2023-03-30 15:30 | Outpatient (BNV) | payer OTHER, SELFPAY | END 2023-04-01 09:49 | PROVIDERS: Admitting Provider Student in an Organized Health Care Education/Training Program; Emergency Provider Emergency Medicine; PCP Internal Medicine; Visit Provider Internal Medicine | DX: I48.91 Unspecified atrial fibrillation (principal); R94.31 Abnormal electrocardiogram [ECG] [EKG] | CPT/HCPCS: 93010 ==

== ENCOUNTER → 2023-03-30 15:30 | Outpatient (BNV) | payer OTHER, SELFPAY | PROVIDERS: Admitting Provider Student in an Organized Health Care Education/Training Program; Emergency Provider Emergency Medicine; PCP Internal Medicine; Visit Provider Student in an Organized Health Care Education/Training Program | DX: N39.0 Urinary tract infection, site not specified (principal); R93.5 Abnormal findings on diagnostic imaging of other abdominal regions, including retroperitoneum; N17.9 Acute kidney failure, unspecified; N18.30 Chronic kidney disease, stage 3 unspecified; R19.7 Diarrhea, unspecified; E87.6 Hypokalemia; E83.42 Hypomagnesemia | CPT/HCPCS: 99223; 99233; 99239; G0180 ==

== ENCOUNTER → 2023-03-30 15:30 | Outpatient (BNV) | payer OTHER, SELFPAY | PROVIDERS: Admitting Provider Student in an Organized Health Care Education/Training Program; Emergency Provider Emergency Medicine; PCP Internal Medicine; Visit Provider Internal Medicine Hypertension Specialist | DX: N18.30 Chronic kidney disease, stage 3 unspecified (principal) | CPT/HCPCS: 99222; 99232; 99499 ==

== ENCOUNTER → 2023-03-30 15:30 | Outpatient (BNV) | payer OTHER, SELFPAY | PROVIDERS: Admitting Provider Student in an Organized Health Care Education/Training Program; Emergency Provider Emergency Medicine; PCP Internal Medicine; Visit Provider Surgery | DX: R93.5 Abnormal findings on diagnostic imaging of other abdominal regions, including retroperitoneum (principal) | CPT/HCPCS: 99222; 99232; 99233 ==

== ENCOUNTER → 2023-03-30 15:30 | Outpatient (BNV) | payer OTHER, SELFPAY | PROVIDERS: Admitting Provider Student in an Organized Health Care Education/Training Program; Emergency Provider Emergency Medicine; PCP Internal Medicine; Visit Provider Internal Medicine | DX: Z01.810 Encounter for preprocedural cardiovascular examination (principal); I50.32 Chronic diastolic (congestive) heart failure; I50.812 Chronic right heart failure; I48.20 Chronic atrial fibrillation, unspecified; E66.01 Morbid (severe) obesity due to excess calories | CPT/HCPCS: 99223; 99233 ==

== ENCOUNTER 2023-04-27 12:34 | Outpatient (AMB) | payer OTHER, SELFPAY ==
--- NOTE | 2023-04-27 12:38 | MHC.OFFVIS ---
Intake Vital Signs 04/27/23 12:39 Height 5 ft 10 in BMI Reason not done Patient refused/unable BP 133/60 Blood Pressure Location Lt brachial Position Sitting Pulse 66 Intake Visit Reasons: FU PER [facility] Intake Note: Follow-up has had weight gain (but thinks that is do to eating) can get swelling in left leg and having sob today Gas Flow Regulator Required: No Pot Filler: Pot Filler Present Accompanied by: Spouse Allergies Penicillins Adverse Reaction (Intermediate, Verified 09/15/22 13:33) HALLUCINATIONS, SWEATS Medication List - Last Reconciled 04/27/23 by Reji Bailey MD allopurinol 300 mg PO DAILY amlodipine 5 mg PO DAILY@1200 apixaban (Eliquis) 5 mg PO BID 30 days ascorbic acid (vitamin C) (Vitamin C) 1,000 mg PO BID cefuroxime axetil 500 mg PO BID cholecalciferol (vitamin D3) 50 mcg PO DAILY cyanocobalamin (vitamin B-12) 200 mcg PO DAILY empagliflozin (Jardiance) 10 mg PO DAILY insulin aspart U-100 (Novolog U-100 Insulin aspart) 14 units subcut DAILY@1200 insulin glargine (Lantus Solostar U-100 Insulin) 36 units subcut BEDTIME@2100 ketoconazole 2% 1 appl topical BID PRN lactobacillus combination no.4 (Probiotic) 3,000 mmu cells PO DAILY methenamine hippurate 1 g PO BID pantoprazole (Protonix) 40 mg PO DAILY [Probiotic 1 cap PO BID] rosuvastatin 40 mg PO BEDTIME tamsulosin 0.4 mg PO BEDTIME torsemide 60 mg (3 x 20 mg) PO DAILY 90 days torsemide 20 mg PO DAILY@1200 PRN HPI HPI Comments History of Present Illness Details Geovanni was referred for urgent evaluation. Since his stone removal he says he is gained about 20 lb. He has had increased swelling in both extremities more predominant in the left lower extremity and thinks all of it is below knee. However he also feels his abdominis distended. He also has notice some increased shortness of breath and the has noticed some cough. These symptoms with decompensated congestive heart failure him in the past. He was advised to take extra torsemide but has not started taking that because he does not want to go to the bathroom more frequently. He denies any palpitations, lightheadedness, syncope. No chest pain. Minimal activity level. REPLACED BY [facility] Medical History Abnormal CT of the abdomen Acute UTI Diabetes Morbid obesity Chronic atrial fibrillation History of ESBL E. 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 Hypertension Kidney disease Social History Household Members: Spouse Housing: House Do you presently have visiting nurse or other home services: Yes ([employer] 3x/week) Alcohol intake: never Comment: pt refuses Patient Tobacco Use Status: Never used Tobacco Advance Directives Date on File: 05/16/22 service: Yes Current occupational status: retired Review of Systems Const Denies chills, Denies fatigue, Denies fever(s), Denies frequent falls, Denies weakness, Denies weight gain and Denies weight loss ENT Denies dizziness Card Denies chest pain, Denies leg edema, Denies lightheadedness, Denies palpitations, Denies dyspnea, Denies dyspnea on exertion, Denies orthopnea and Denies other (loss of consciousness) Resp Denies cough, Denies dyspnea and Denies dyspnea on exertion GI Denies hematochezia and Denies change in stool character Musc Denies abnormal gait, Denies muscle weakness, Denies numbness, Denies radiating pain into limb and Denies tingling Neuro Denies abnormal gait, Denies dizziness, Denies frequent falls, Denies numbness, Denies tingling and Denies weakness Endo Denies fatigue and Denies palpitations Physical Exam Vital Signs: Last Vital Signs Pulse 66 04/27/23 12:39 BP 133/60 04/27/23 12:39 Const Other: Morbidly obese General: cooperative, healthy appearing, comfortable and no acute distress Orientation/consciousness: patient oriented x3 Neck Neck: Yes JVD Resp Effort & Inspection: normal respiratory effort Auscultation: clear to auscultation bilaterally, no crackles, no rales, no rhonchi and no wheezes Cardio Jugular venous distension: JVD Rate: regular rate Rhythm: abnormal rhythm irregularly irregular Heart sounds: S1 normal heart sound present, S2 normal heart sound present, no murmurs and no rubs Neuro General: patient oriented x3 and no focal motor deficits Extrem Other: Bilateral lower leg swelling with redness to skin. Patient reports improved since hospital admission General: No clubbing, No cyanosis and Yes edema (Three to 4+ below knee edema) Psych Appearance: grossly normal Mental Status: mental status grossly normal Speech and movement: Normal speech and movement present Assessment & Plan Assessment & Plan (1) Chronic right heart failure: Code(s): I50.812 - Chronic right heart failure Plan: Chronic right heart failure secondary to heart failure preserved ejection fraction with marked fluid overload on today's exam. I discussed with him the importance of management of his fluid status and taking extra diuretics when need be. I have advised him to start taking 80 mg of torsemide. Advise that if he gets worse and continues to have fluid gain and/or has worsening shortness of breath he should come to the emergency room as he may require IV diuresis and oral diuretics may not be effective. If he remains stable and is not had much weight loss in the next 3-4 days I will add metolazone to his therapy. Importance of managing congestive heart failure was discussed to overall improve his prognosis and also avoid worsening renal function. Continue CPAP therapy. Continue aggressive blood pressure control. Overall prognosis is guarded. (2) Chronic atrial fibrillation: Code(s): I48.20 - Chronic atrial fibrillation, unspecified Plan: Chronic atrial fibrillation, rate controlled. Continue rate control strategy. Continue full oral anticoagulation, currently on Eliquis 5 mg b.i.d.. Will obtain lab work today. Follow up in the clinic in 2 weeks time, sooner p.r.n.. Thank you for allowing me to partake in his care Orders: Orders Basic Metabolic Panel Today I50.812 - Chronic right heart failure B Type Natriuretic Peptide Today I50.812 - Chronic right heart failure Coding Level of Care Code Est Pt Level 4 (45258) Diagnoses Chronic right heart failure I50.812 Chronic atrial fibrillation I48.20
[2023-04-27 12:39] VITALS: BP 133/60; PULSE 66
== END 2023-04-27 13:10 | disposition home or self-care (01) ==
PROVIDERS: PCP Internal Medicine; Visit Provider Internal Medicine Cardiovascular Disease
DX: I50.812 Chronic right heart failure (principal); I48.20 Chronic atrial fibrillation, unspecified
CPT/HCPCS: 99214

== ENCOUNTER 2023-04-27 12:34 | Outpatient (REF) | payer OTHER, SELFPAY ==
[2023-04-27 15:24] LABS: B Type Natriuretic Peptide 243 pg/mL (<100)
[2023-04-27 15:34] LABS: Anion Gap 15 (12-20); Blood Urea Nitrogen 49 mg/dL (9-16); Calcium 8.7 mg/dL (8.4-10.2); Carbon Dioxide 27 mmol/L (22-29); Chloride 104 mmol/L (96-108); Estimated Glomerular Filt Rate 34; Glucose Random 132 mg/dL (60-115); Potassium 3.3 mmol/L (3.3-5.1); Sodium 143 mmol/L (135-145)
== END 2023-04-27 12:35 | disposition home or self-care (01) ==
LOC: HO.LAB 12:34
PROVIDERS: PCP Internal Medicine; Visit Provider Internal Medicine Cardiovascular Disease
DX: I50.812 Chronic right heart failure (principal); I48.20 Chronic atrial fibrillation, unspecified
CPT/HCPCS: 36415; 80048; 83880; 99212

== ENCOUNTER 2023-05-01 10:40 | Emergency (ER) | payer OTHER, SELFPAY ==
--- NOTE | ~2023-05-01 | XR_ITS ---
EXAMINATION: XR CHEST CLINICAL INFORMATION: Productive cough and chest pain. COMPARISON: Chest 02/13/2023 TECHNIQUE: 2 views of the chest were obtained. FINDINGS: There is mild cardiomegaly. Pulmonary vascularity is normal. The lungs are expanded and clear. No gross bony abnormality seen. XR/XR chest 2V IMPRESSION: Mild cardiomegaly. No acute process seen.
--- NOTE | 2023-05-01 10:45 | ED_ITS ---
HPI - General Adult General Chief complaint: General Medical Stated complaint: DIZZY,RECURRENT UTI PER EMS Time Seen by Provider: 05/01/23 10:45 Source: patient, EMS and RN notes reviewed Mode of arrival: EMS Limitations: no limitations History of Present Illness HPI narrative: Patient is a 72-year-old male with history of CHF, afib on Eliquis, DM, CKD stage 3, lymphedema presenting to the emergency department with complaint of chest pain, productive cough, dysuria with cloudy and foul-smelling urine and lower extremity edema. Patient states that he saw Dr. Bailey on and his torsemide was increased at that time which did lead to a several pound weight loss. Reports he was having weight gain prior to this. Also just finished antibiotics for a UTI which patient does not feel fully resolved. He complains of bilateral back pain around my kidneys. Denies fevers. Denies sick contacts. MD complaint: chest pain, cough, dysuria Onset (ago): day(s) Associated symptoms: chest pain and cough Treatments prior to arrival: none Related Data Home Medications Medication Instructions Recorded Confirmed allopurinol 300 mg tablet 300 mg PO DAILY 11/03/20 04/27/23 ascorbic acid (vitamin C) 1,000 mg 1,000 mg PO BID 11/03/20 04/27/23 tablet (Vitamin C) cholecalciferol (vitamin D3) 50 50 mcg PO DAILY 11/03/20 04/27/23 mcg (2,000 unit) capsule insulin aspart U-100 100 unit/mL 14 unit subcut DAILY@1200 11/03/20 04/27/23 subcutaneous solution (Novolog U-100 Insulin aspart) methenamine hippurate 1 gram tablet 1 g PO BID 11/03/20 04/27/23 tamsulosin 0.4 mg capsule 0.4 mg PO BEDTIME 11/03/20 04/27/23 cyanocobalamin (vitamin B-12) 100 200 mcg PO DAILY 05/02/22 04/27/23 mcg tablet insulin glargine 100 unit/mL (3 36 unit subcut BEDTIME@2100 05/02/22 04/27/23 mL) subcutaneous pen (Lantus Solostar U-100 Insulin) rosuvastatin 40 mg tablet 40 mg PO BEDTIME 05/02/22 04/27/23 amlodipine 5 mg tablet 5 mg PO DAILY@1200 05//23 01/25/24 Probiotic 1 cap PO BID 03/30/23 04/27/23 ketoconazole 2 % topical cream 1 appl topical BID PRN Skin 04/01/23 04/27/23 Irritation lactobacillus combination no.4 3 3,000 mmu cells PO DAILY 04/27/23 04/27/23 billion cell capsule (Probiotic) torsemide 20 mg tablet 20 mg PO DAILY@1200 PRN 04/27/23 04/27/23 Previous Rx's Medication Instructions Recorded apixaban 5 mg tablet (Eliquis) 5 mg PO BID 30 days #60 tabs 03/26/20 empagliflozin 10 mg tablet 10 mg PO DAILY #30 tabs 08/10/22 (Jardiance) torsemide 20 mg tablet 60 mg (3 x 20 mg) PO DAILY 90 days 09/16/22 #270 tabs pantoprazole 40 mg tablet,delayed 40 mg PO DAILY #30 tabs 02/13/23 release (Protonix) cefuroxime axetil 500 mg tablet 500 mg PO BID #14 tabs 04/05/23 cefuroxime axetil 500 mg tablet 500 mg PO BID #14 tabs 05/01/23 Allergies Allergy/AdvReac Type Severity Reaction Status Date / Time Penicillins AdvReac Intermediate HALLUCINATIONS, Verified 09/15/22 13:33 SWEATS Review of Systems 2 Review of Systems: As per HPI. Yes all other systems are reviewed and are negative [facility] Past Medical History Medical History Abnormal CT of the abdomen Acute UTI Diabetes Morbid obesity Chronic atrial fibrillation History of ESBL E. 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 Hypertension Kidney disease Social History Social History Household Members: Spouse Housing: House Do you presently have visiting nurse or other home services: Yes ([employer] 3x/week) Alcohol intake: never Comment: pt refuses Patient Tobacco Use Status: Never used Tobacco Smoked in Last 30 Days: No Use of substances other than those prescribed or required for medical reasons: No Advance Directives: Yes Advance Directives on File: Yes Advance Directives Date on File: 05/16/22 service: Yes Current occupational status: retired Physical Exam ED Vital Signs: Vital Signs - 24 hr 01/29/24 10:53 05/01/23 13:15 05/01/23 15:46 Temperature 97.8 F 98 F Pulse Rate 76 72 71 Respiratory Rate 14 16 18 Blood Pressure 139/50 L 130/52 L 127/50 L Pulse Oximetry 98 98 100 Oxygen Delivery Method Room Air Room Air Room Air BMI result Body Mass Index 57.4 Vital signs have been reviewed and appear to be correct. Blood pressure normal. Heart rate normal. Respiratory rate normal. Temperature normal. Oxygen saturation normal. Const General: cooperative, no acute distress, alert and awake Nutritional Appearance: obese morbidly obese Orientation/consciousness: patient oriented x3 Limitations: physical limitations and ambulation with walker HENMT Head: Yes normocephalic and Yes atraumatic Ears: hearing grossly normal bilaterally and external ears normal General nose exam: Normal external nose present Face and sinus: Yes normal facial exam Mouth: Normal oral and palatal mucosa present Throat: Yes posterior oropharynx normal and Yes uvula midline Eyes Pupils: Equal, round and reactive pupils present Neck Lymphatic: no lymphadenopathy noted Chest Chest palpation & inspection: normal inspection of the chest and normal palpation of entire chest wall Resp Effort & Inspection: normal respiratory effort Auscultation: clear to auscultation bilaterally Cardio Rate: regular rate Rhythm: regular rhythm Heart sounds: S1 normal heart sound present and S2 normal heart sound present GI Inspection: Yes normal to inspection Palpation (GI): Soft to palpation and nontender Auscultation: normoactive bowel sounds Skin General skin exam: elasticity normal and turgor normal Neuro General: patient oriented x3, tone normal, moves all extremities, Normal light touch and pain sensation and CN's II-XI intact bilaterally Cranial nerves: Yes Equal, round and reactive pupils present Extrem General: Yes full ROM and Yes capillary refill normal Right lower extremity: edema Details: non-pitting Left lower extremity: edema Details: non-pitting Medications Administered Discontinued Medications Generic Name Dose Route Start Last Admin Trade Name Freq PRN Reason Stop Dose Admin Ceftriaxone Sodium 1 gm/ 50 mls @ 100 mls/hr 05/01/23 13:42 05/01/23 15:12 Sodium Chloride IV 05/01/23 14:11 Infused ONCE ONE Infusion Medical Decision Making Medical Decision Making MDM Narrative: Patient is a 72-year-old male with history of CHF, afib on Eliquis, DM, CKD stage 3, lymphedema presenting to the emergency department with complaint of chest pain, productive cough, dysuria with cloudy and foul-smelling urine and lower extremity edema. On exam patient is awake, A+Ox3, VS WNL, afebrile, normal neurological exam without focal deficits, physical exam findings as above. Given reported symptoms and physical exam findings, initial differential includes ACS, UTI/pyelonephritis, viral illness, covid, flu, pneumonia, CHF exacerbation. Plan: EKG, CXR, labs, UA Labs notable for no leukocytosis but left shift, microcytic anemia consistent with priors, elevated BUN and creatinine consistent with with baseline, mildly elevated alk phos and BNP. Troponin 20.8, will repeat to assess for delta. EKG shows afib with RBBB, similar to prio. X-ray notable for mild cardiomegaly, no acute process. My interpretation is in agreement with the radiologist's interpretation. Swabs for flu and Covid negative. UA notable for 3+ leukocytes, negative nitrites, >50wbcs, 1+ blood, 4+ bacteria, WBC clumps present, only 0-2 epithelials. Will give 1g IV ceftriazone here. No delta on repeat troponin. Feel patient is stable for discharge home. Will treat UTI with cefuroxime, renal dosing not indicated based on creatinine clearance. Results discussed with patient and all questions answered. Instructed patient to follow up with PCP, will refer to urology as patient states he has not seen a urologist in several years. Return precautions discussed. Patient verbalized understanding of and agreement with plan. Differential Diagnosis Differential Diagnoses: The differential diagnosis associated with the presentation includes As per [facility] Admission/Observation Consideration of admission/observation: Escalation of care including admission/observation considered Lab Data [facility] Lab Attestation statement: I reviewed the patient's lab results. As per [facility]. 05/01/23 11:30 05/01/23 11:30 Labs: Lab Results 05/01/23 05/01/23 05/01/23 Range/Units 11:26 11:27 11:30 WBC 9.5 (4.8-10.8) X10*3/uL RBC 3.50 L (4.60-5.80) X10*6/uL Hgb 10.2 L (14.0-18.0) g/dl Hct 33.5 L (42.0-52.0) % MCV 95.7 (80.0-98.0) fL MCH 29.1 (27.0-33.0) pg MCHC 30.4 L (31.0-36.0) g/dl RDW 19.1 H (11.0-16.0) % Plt Count 180 (160-400) X10*3/uL MPV 10.0 (9.4-12.4) fL Immature Gran % (Auto) 0.8 H (0.0-0.4) % Neut % (Auto) 81.0 H (45-73) % Lymph % (Auto) 8.0 L (20-40) % [place] % (Auto) 5.7 (2-11) % Eos % (Auto) 4.2 H (0-4) % Baso % (Auto) 0.3 (0-2) % Lymph # (Auto) 0.8 L (1.2-4.9) X10*3/uL [place] # (Auto) 0.5 (0.1-1.2) X10*3/uL Eos # (Auto) 0.4 (0.0-0.4) X10*3/uL Baso # (Auto) 0.0 (0.0-0.2) X10*3/uL Abs Immat Gran (auto) 0.08 H (0.00-0.03) X10*3/uL Absolute Neuts (auto) 7.7 (2.0-8.3) x10*3/uL Absolute Nucleated RBC 0.000 (0.0-0.012) X10*3/uL Nucleated RBC % (auto) 0.0 (0.0-0.2) /100WBC PT 18.7 H D (11.1-13.3) SEC INR 1.5 H (0.9-1.1) Sodium 142 (135-145) mmol/L Potassium 3.7 (3.3-5.1) mmol/L Chloride 105 (96-108) mmol/L Carbon Dioxide 28 (22-29) mmol/L Anion Gap 13 (12-20) BUN 48 H (9-16) mg/dL Creatinine 2.04 H (0.5-1.4) mg/dL Estim Creat Clear Calc 53.9 Estimated GFR 32 Random Glucose 196 H (60-115) mg/dL Calcium 8.7 (8.4-10.2) mg/dL Total Bilirubin 0.7 (0.0-1.0) mg/dL AST 18 (5-37) U/L ALT 14 (0-40) U/L Alkaline Phosphatase 159 H (39-117) U/L Troponin I High Sens 20.8 (<3.5-35.0) ng/L B-Natriuretic Peptide 184 H (<100) pg/mL Total Protein 6.8 (6.5-8.0) g/dL Albumin 3.4 L (3.5-5.0) g/dL Urine Color Yellow Urine Appearance Turbid Urine pH 6.0 (5.0-9.0) Ur Specific [place] 1.010 (1.005-1.025) Urine Protein Trace (Neg-Trace) mg/dL Urine Glucose (UA) >=1000 H (Negative) mg/dL Urine Ketones Negative (Negative) mg/dL Urine Blood Small (1+) H (Negative) Urine Nitrite Negative (Negative) Ur Leukocyte Esterase Large (3+) H (Negative) Urine RBC 0-2 (0-2) /HPF Urine WBC >50 H (0-5) /HPF Urine WBC Clumps Present Ur Squamous Epith Cells 0-2 (0-2) /HPF Urine Bacteria 4+ (None Seen) Hyaline Casts 0-2 (0-2) /LPF COVID-19 ([facility]) Negative (Negative) COVID-19 Clin Com See Note Influenza Type A ([facility]) Negative (Negative) Influenza Type B ([facility]) Negative (Negative) Influenza A & B Note See Note 05/01/23 Range/Units 15:07 WBC (4.8-10.8) X10*3/uL RBC (4.60-5.80) X10*6/uL Hgb (14.0-18.0) g/dl Hct (42.0-52.0) % MCV (80.0-98.0) fL MCH (27.0-33.0) pg MCHC (31.0-36.0) g/dl RDW (11.0-16.0) % Plt Count (160-400) X10*3/uL MPV (9.4-12.4) fL Immature Gran % (Auto) (0.0-0.4) % Neut % (Auto) (45-73) % Lymph % (Auto) (20-40) % [place] % (Auto) (2-11) % Eos % (Auto) (0-4) % Baso % (Auto) (0-2) % Lymph # (Auto) (1.2-4.9) X10*3/uL [place] # (Auto) (0.1-1.2) X10*3/uL Eos # (Auto) (0.0-0.4) X10*3/uL Baso # (Auto) (0.0-0.2) X10*3/uL Abs Immat Gran (auto) (0.00-0.03) X10*3/uL Absolute Neuts (auto) (2.0-8.3) x10*3/uL Absolute Nucleated RBC (0.0-0.012) X10*3/uL Nucleated RBC % (auto) (0.0-0.2) /100WBC PT (11.1-13.3) SEC INR (0.9-1.1) Sodium (135-145) mmol/L Potassium (3.3-5.1) mmol/L Chloride (96-108) mmol/L Carbon Dioxide (22-29) mmol/L Anion Gap (12-20) BUN (9-16) mg/dL Creatinine (0.5-1.4) mg/dL Estim Creat Clear Calc Estimated GFR Random Glucose (60-115) mg/dL Calcium (8.4-10.2) mg/dL Total Bilirubin (0.0-1.0) mg/dL AST (5-37) U/L ALT (0-40) U/L Alkaline Phosphatase (39-117) U/L Troponin I High Sens 21.3 (<3.5-35.0) ng/L B-Natriuretic Peptide (<100) pg/mL Total Protein (6.5-8.0) g/dL Albumin (3.5-5.0) g/dL Urine Color Urine Appearance Urine pH (5.0-9.0) Ur Specific [place] (1.005-1.025) Urine Protein (Neg-Trace) mg/dL Urine Glucose (UA) (Negative) mg/dL Urine Ketones (Negative) mg/dL Urine Blood (Negative) Urine Nitrite (Negative) Ur Leukocyte Esterase (Negative) Urine RBC (0-2) /HPF Urine WBC (0-5) /HPF Urine WBC Clumps Ur Squamous Epith Cells (0-2) /HPF Urine Bacteria (None Seen) Hyaline Casts (0-2) /LPF COVID-19 ([facility]) (Negative) COVID-19 Clin Com Influenza Type A ([facility]) (Negative) Influenza Type B ([facility]) (Negative) Influenza A & B Note Independent Interpretation I performed an independent interpretation of an: Plain X-Ray Interpretation: Mild cardiomegaly without acute findings on chest x-ray Radiology Impression Discussion of test interpretation with radiology: I have reviewed the radiologist's reading. Radiologist Impression: XR/XR chest 2V IMPRESSION: Mild cardiomegaly. No acute process seen. External Record Review External record reviewed: Inpatient record, Office record and Outpatient record Prescription Management I considered prescription management with: Antibiotic Discharge Plan Discharge Clinical Impression: Urinary tract infection Patient Disposition: Home, Self-Care Instructions: Urinary Tract Infection in Men (DC) Additional Instructions: You have been evaluated in the emergency department today for your urinary symptoms. Your evaluation, including urinalysis, suggests that your symptoms are due to urinary tract infection. You were given one dose of IV antibiotics in the emergency department today. Please take your prescribed antibiotics for the full course of medication as directed. Please follow-up with your primary care provider within 2 days. Return to the emergency department if you experience fevers 100.4? F or greater, worsening or uncontrolled pain, vomiting, flank pain, or for any other concerning symptoms. Prescriptions: New cefuroxime axetil 500 mg tablet 500 mg PO BID Qty: 14 0RF No Action Eliquis 5 mg tablet 5 mg PO BID 30 Days Qty: 60 5RF methenamine hippurate 1 gram Tablet 1 g PO BID tamsulosin 0.4 mg Capsule 0.4 mg PO BEDTIME insulin aspart U-100 [Novolog U-100 Insulin aspart] 100 unit/mL Solution 14 unit SUBCUT DAILY@1200 ascorbic acid (vitamin C) [Vitamin C] 1,000 mg Tablet 1,000 mg PO BID allopurinol 300 mg Tablet 300 mg PO DAILY cholecalciferol (vitamin D3) 50 mcg (2,000 unit) Capsule 50 mcg PO DAILY insulin glargine [Lantus Solostar U-100 Insulin] 100 unit/mL (3 mL) Insulin Pen 36 unit SUBCUT BEDTIME@2100 cyanocobalamin (vitamin B-12) 100 mcg Tablet 200 mcg PO DAILY rosuvastatin 40 mg Tablet 40 mg PO BEDTIME Probiotic 1 cap PO BID ketoconazole 2 % Cream 1 appl TOPICAL BID PRN (Reason: Skin Irritation) cefuroxime axetil 500 mg tablet 500 mg PO BID Qty: 14 0RF torsemide 20 mg tablet 20 mg PO DAILY@1200 PRN amlodipine 5 mg Tablet 5 mg PO DAILY@1200 Jardiance 10 mg Tablet 10 mg PO DAILY Qty: 30 0RF pantoprazole [Protonix] 40 mg tablet,delayed release (DR/EC) 40 mg PO DAILY Qty: 30 0RF torsemide 20 mg tablet 60 mg PO DAILY 90 Days Qty: 270 1RF Probiotic 3 billion cell capsule 3,000 mmu cells PO DAILY Rx Instructions: administer with a meal Referrals: [facility] [Provider Group]
[2023-05-01 10:53] VITALS: BP 139/50; BP 150/78; PULSE 68; PULSE 76; RESP 14; TEMP 36.6; O2SAT 98; BMI 57.4
--- NOTE | 2023-05-01 10:58 | ECG_ITS ---
Test Reason : CP Blood Pressure : / mmHG Vent. Rate : 079 BPM Atrial Rate : 000 BPM P-R Int : 000 ms QRS Dur : 166 ms QT Int : 452 ms P-R-T Axes : 000 -74 064 degrees QTc Int : 518 ms Atrial fibrillation Right bundle branch block Left anterior fascicular block Bifascicular block Abnormal ECG When compared with ECG of 01-APR-2023 09:50, Nonspecific T wave abnormality now evident in Lateral leads Referred By: Ana Maria Diggs Electronically Signed By:LOURDES OLEARY MD
[2023-05-01 11:35] LABS: MANUAL DIFF FLAG NO
[2023-05-01 11:37] LABS: Basophils Percent Auto 0.3 % (0-2); Eosinophils Absolute Auto 0.4 X10*3/uL (0.0-0.4); Eosinophils Percent Auto 4.2 % (0-4); Hematocrit 33.5 % (42.0-52.0); Hemoglobin 10.2 g/dl (14.0-18.0); Imm Gran Abs Auto 0.08 X10*3/uL (0.00-0.03); Imm Gran Pct Auto 0.8 % (0.0-0.4); Lymphocytes Absolute Auto 0.8 X10*3/uL (1.2-4.9); Mean Corpuscular HGB Conc 30.4 g/dl (31.0-36.0); Mean Corpuscular Hemoglobin 29.1 pg (27.0-33.0); Mean Corpuscular Volume 95.7 fL (80.0-98.0); Monocytes Absolute Auto 0.5 X10*3/uL (0.1-1.2); Monocytes Percent Auto 5.7 % (2-11); Neutrophils Absolute Auto 7.7 x10*3/uL (2.0-8.3); Platelet Count 180 X10*3/uL (160-400); Red Cell Distribution Width 19.1 % (11.0-16.0); White Blood Count 9.5 X10*3/uL (4.8-10.8)
[2023-05-01 11:42] LABS: Appearance Urine Turbid; Color Urine Yellow; Glucose Urine UA >=1000 mg/dL (Negative); Leukocyte Esterase Urine Large (3+) (Negative); Nitrite Urine Negative (Negative); UMIC TRIGGER UACC YES; Urine Blood Small (1+) (Negative); Urine Ketones Negative (Negative); Urine Protein Trace mg/dL (Neg-Trace)
[2023-05-01 11:49] LABS: COVID-19 Test Negative (Negative); IDNOW Serial# 152EDE1D
[2023-05-01 11:50] LABS: INTERNATIONAL NORM RATIO 1.5 (0.9-1.1); Prothrombin Time 18.7 SEC (11.1-13.3)
[2023-05-01 11:53] LABS: Bacteria Urine 4+ (None Seen); Hyaline Casts Urine 0-2 /LPF (0-2); RBC Urine 0-2 /HPF (0-2); Squamous Epithelial Cell Urine 0-2 /HPF (0-2); UACC Culture Trigger YES; WBC Clumps Urine Present; WBC Urine >50 /HPF (0-5)
[2023-05-01 11:54] LABS: Alanine Aminotransferase 14 U/L (0-40); Albumin Level 3.4 g/dL (3.5-5.0); Alkaline Phosphatase 159 U/L (39-117); Anion Gap 13 (12-20); Aspartate Amino Transferase 18 U/L (5-37); Bilirubin Total 0.7 mg/dL (0.0-1.0); Blood Urea Nitrogen 48 mg/dL (9-16); Calcium 8.7 mg/dL (8.4-10.2); Carbon Dioxide 28 mmol/L (22-29); Chloride 105 mmol/L (96-108); Creatinine Clr Calc Pharmacy 53.9; Estimated Glomerular Filt Rate 32; Glucose Random 196 mg/dL (60-115); Potassium 3.7 mmol/L (3.3-5.1); Sodium 142 mmol/L (135-145); Total Protein 6.8 g/dL (6.5-8.0)
[2023-05-01 11:55] LABS: IDNOW Serial# 9DB6401D; Influenza A Negative (Negative); Influenza B2 Negative (Negative)
[2023-05-01 11:57] LABS: B Type Natriuretic Peptide 184 pg/mL (<100)
[2023-05-01 12:01] LABS: Troponin-I High Sensitivity 20.8 ng/L (<3.5-35.0)
[2023-05-01 13:15] VITALS: BP 130/52; PULSE 72; RESP 16; TEMP 36.6; O2SAT 98
[2023-05-01] MEDS: cefTRIAXone sodium 1 GM in 0.9 % Sodium Chloride 50 ML IV (14:21)
[2023-05-01 15:33] LABS: Troponin-I High Sensitivity 21.3 ng/L (<3.5-35.0)
[2023-05-01 15:46] VITALS: BP 127/50; PULSE 71; RESP 18; O2SAT 100
== END 2023-05-01 16:43 | disposition home or self-care (01) ==
PROVIDERS: Registered Nurse Emergency; Emergency Provider Emergency Medicine; PCP Internal Medicine
DX: N39.0 Urinary tract infection, site not specified (principal); R30.0 Dysuria; R07.9 Chest pain, unspecified; R05.9 Cough, unspecified; I48.91 Unspecified atrial fibrillation; E11.22 Type 2 diabetes mellitus with diabetic chronic kidney disease; I13.0 Hypertensive heart and chronic kidney disease with heart failure and stage 1 through stage 4 chronic kidney disease, or unspecified chronic kidney disease; N18.9 Chronic kidney disease, unspecified; I50.9 Heart failure, unspecified; R60.0 Localized edema; Z79.01 Long term (current) use of anticoagulants; Z11.52 Encounter for screening for COVID-19; Z79.899 Other long term (current) drug therapy
CPT/HCPCS: 36415; 71046; 80053; 81001; 83880; 84484; 85025; 85610; 87086; 87088; 87186; 87502; 87635; 93005; 96365; 99284; J0696

== ENCOUNTER → 2023-05-01 10:58 | Outpatient (BNV) | payer OTHER, SELFPAY | PROVIDERS: Emergency Provider Emergency Medicine; PCP Internal Medicine; Visit Provider Internal Medicine Cardiovascular Disease | DX: I45.2 Bifascicular block (principal); R94.31 Abnormal electrocardiogram [ECG] [EKG] | CPT/HCPCS: 93010 ==

== ENCOUNTER 2023-06-23 10:39 | Outpatient (REF) | payer OTHER, SELFPAY ==
[2023-06-24 07:11] LABS: Urine Cytology See Pathology rpt
== END 2023-06-23 10:40 | disposition home or self-care (01) ==
LOC: HO.LAB 10:39
PROVIDERS: PCP Internal Medicine; Visit Provider Nurse Practitioner Family
DX: N39.0 Urinary tract infection, site not specified (principal); R31.29 Other microscopic hematuria; R33.9 Retention of urine, unspecified
CPT/HCPCS: 51798; 81003; 87086; 87088; 87186; 88112; 99202

== ENCOUNTER 2023-06-23 10:39 | Outpatient (AMB) | payer OTHER, SELFPAY ==
--- NOTE | 2023-06-23 10:51 | A.OFFVIS_ITS ---
Intake Intake Visit Reasons: Recurrent UTI (Male) Intake Note: Patient presents today for a follow-up on recurrent UTI Meds: Tamsulosin Allergies to Antibiotic: Penicillins Blood Thinner: Eliquis Post Void Residual: 0ml Patient stated he is a non smoker. Medical Clerical Assistant Required: No Accompanied by: Sybil GEE Allergies Penicillins Adverse Reaction (Intermediate, Verified 06/23/23 12:00) HALLUCINATIONS, SWEATS Medication List - Last Reconciled 06/23/23 by BRENT Leiva allopurinol 300 mg PO DAILY amlodipine 5 mg PO DAILY@1200 apixaban (Eliquis) 5 mg PO BID 30 days ascorbic acid (vitamin C) (Vitamin C) 1,000 mg PO BID cholecalciferol (vitamin D3) 50 mcg PO DAILY cyanocobalamin (vitamin B-12) 200 mcg PO DAILY empagliflozin (Jardiance) 10 mg PO DAILY insulin aspart U-100 (Novolog U-100 Insulin aspart) 14 units subcut DAILY@1200 insulin glargine (Lantus Solostar U-100 Insulin) 36 units subcut BEDTIME@2100 ketoconazole 2% 1 appl topical BID PRN lactobacillus combination no.4 (Probiotic) 3,000 mmu cells PO DAILY methenamine hippurate 1 g PO BID pantoprazole (Protonix) 40 mg PO DAILY [Probiotic 1 cap PO BID] rosuvastatin 40 mg PO BEDTIME tamsulosin 0.4 mg PO BEDTIME torsemide 60 mg (3 x 20 mg) PO DAILY 90 days torsemide 20 mg PO DAILY@1200 PRN HPI HPI Comments History of Present Illness Details Geovanni is a very pleasant 72-year-old male patient of Dr. Edouard who is accompanied by his [employer] worker at todays office visit. He has a past medical history of recurrent urinary tract infections, diabetes, morbid obesity, chronic AFib on anticoagulation, C diff carrier, varicose vein, hypertension, and kidney disease. He presents to the office today as a new patient for recurrent urinary tract infections. Discussion with the patient today reports to be doing and feeling well. He reports having had a longstanding history of recurrent urinary tract infections ( 5-7 years) and has [facility] and has since been on methenamine and vitamin-C. However, when obtaining urine for urinalysis it always appears he is nitrate positive h owever has had no UTI like symptoms. Therefore recommendations were made for urology referral for further assessment evaluation. In office urinalysis results reviewed with the patient today positive nitrates. PVR 0 mL. When asked he reports longstanding history of urinary frequency however this is his baseline. He otherwise denies urinary urgency, incontinence, nocturia, hematuria, dysuria, foul smelling urine, changes to urinary stream, flank pain, fever, and or chills. He is happy with his current voiding parameters on 0.4 mg of Flomax daily. Discussed at length potential causes for recurrent urinary tract infections. Discussed obtaining retroperitoneal ultrasound for further assessment evaluation as well as in office cystoscopy. In review of patient's chart it appears PSA 03/25 0.3. PFSH Medical History Abnormal CT of the abdomen Acute UTI Diabetes Morbid obesity Chronic atrial fibrillation History of ESBL E. 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 Hypertension Kidney disease Social History Household Members: Spouse Housing: House Do you presently have visiting nurse or other home services: Yes ([employer] 3x/week) Alcohol intake: never Comment: pt refuses Patient Tobacco Use Status: Never used Tobacco Advance Directives Date on File: 05/16/22 service: Yes Current occupational status: retired Review of Systems Const Reports as per HPI Eyes Reports no additional complaints ENT Reports no additional complaints Card Reports as per HPI Resp Reports no additional complaints GI Reports as per HPI Reports as per HPI Musc Reports as per HPI Neuro Reports as per HPI Psych Reports as per HPI Endo Reports as per HPI Physical Exam Const General: cooperative, comfortable, no acute distress, well developed, alert and awake Orientation/consciousness: patient oriented x3 Limitations: ambulation with walker HEENT Head: Yes normal to inspection, Yes normocephalic and Yes atraumatic Ears: hearing grossly normal bilaterally Eyes General: appearance normal, both eyes and all related structures Neck Neck: Yes normal visual inspection and Yes trachea midline Chest Chest palpation & inspection: normal inspection of the chest Resp Effort & Inspection: normal respiratory effort and able to speak in complete sentences Cardio Rate: regular rate GI Inspection: Yes normal to inspection General: Yes no CVA tenderness Back/Spine/Pelvis Back: no CVA tenderness Skin General skin exam: no rashes or lesions noted Neuro General: patient oriented x3 Extrem General: Yes normal to inspection Psych Appearance: grossly normal and well kempt Mental Status: mental status grossly normal Speech and movement: Normal speech and movement present and Clear speech present Affect: normal affect Attitude: cooperative Thought process: Normal thought process present Thought content: Normal thought content present Office Procedures Post Void Residual Post Residual Void Post Void Residual (PVR): 0 [id number] Void Residual by ultrasound Results AMB Urinalysis, Automated UA Leukoctes 125 Dieter/uL Last Edit by Almaz Ricketts [facility] on 06/23/23 11:10 UA Nitrite Positive Last Edit by Almaz Ricketts [facility] on 06/23/23 11: 10 UA Urobilinogen 0.2 mg/dL Last Edit by Almaz Rickettsverona Ricketts [facility] on 4 11:10 UA Protein 30 mg/dL Last Edit by Almaz Ricketts [facility] on 06/23/23 11:1 0 UA pH 5.5 Last Edit by Almaz Ricketts [facility] on 06/23/23 11:10 UA Blood 10 Sunil/uL Last Edit by Almaz Ricketts [facility] on 06/23/23 11:10 UA Specific [place] 1.015 Last Edit by Almaz Ricketts [facility] on 11:10 UA Ketone Negative Last Edit by Almaz Rickettsvernoa Ricketts [facility] on 06/23/23 11:1 0 UA Bilirubin 0 mg/dL Last Edit by Almaz Rickettsverona Ricketts [facility] on 06/23/23 11: 10 UA Glucose 500 mg/dL Last Edit by Almaz Rickettsverona Ricketts [facility] on 06/23/23 11: 10 Results Reviewed Results Reviewed: Laboratory Last Values Urine pH (Auto) 5.5 06/23/23 10:52 Specific [place] (Auto) 1.015 06/23/23 10:52 Urine Protein (Auto) 30 mg/dL 06/23/23 10:52 Glucose (UA)(Auto) 500 mg/dL 06/23/23 10:52 Urine Ketones (Auto) Negative 06/23/23 10:52 Urine Blood (Auto) 10 Sunil/uL 06/23/23 10:52 Urine Nitrite (Auto) Positive 06/23/23 10:52 Urine Bilirubin (Auto) 0 mg/dL 06/23/23 10:52 Urine Urobilinogen (Auto) 0.2 mg/dL 06/23/23 10:52 Leukocyte Esterase (Auto) 125 Dieter/uL 06/23/23 10:52 Assessment & Plan Assessment & Plan (1) UTI (urinary tract infection): Code(s): N39.0 - Urinary tract infection, site not specified (2) Microscopic hematuria: Code(s): R31.29 - Other microscopic hematuria (3) Recurrent urinary tract infection: Code(s): N39.0 - Urinary tract infection, site not specified (4) Complicated urinary tract infection: Code(s): N39.0 - Urinary tract infection, site not specified Plan In office urinalysis results reviewed with the patient today; will send for urine culture. PVR 0 mL. Discussed at length potential causes for recurrent urinary tract infections patient is experiencing. Continue methenamine and vitamin-C as prescribed; however discussed while and or when on treatment dose for urinary tract infection this should be held and resumed once antibiotics are completed. Continue flomax. Discussed potential for near future microgen for further assessment and evaluation Will obtain retroperitoneal ultrasound for further assessment evaluation. Patient currently denies any bothersome urinary issues or concerns. Discussed importance of drinking water daily. Discussed importance of managing constipation in relation to recurrent UTI's. Discussed at length affects of diabetes on the bladder, urinary symptoms, and overall health and well being. Follow-up in office cystoscopy with imaging to be completed prior; or sooner with any issues, concerns, and or questions. Orders: Orders AMB Urinalysis Automated 06/23/23 R33.9 - Retention of urine, unspecified AMB Urinalysis Automated 06/23/23 N39.0 - Urinary tract infection, site not specified Urine Culture 06/23/23 N39.0 - Urinary tract infection, site not specified Urine Cytology 06/24/23 R31.29 - Other microscopic hematuria AMB Post Void Residual by ultrasound 06/23/23 R33.9 - Retention of urine, unspecified Medications: New nitrofurantoin macrocrystal must administer with a meal/food\ Please hold methenamine and vitamin c while on treatment dose for UTI. 100 mg PO BID 14 days 28 caps 0RF N39.0 - Urinary tract infection, site not specified Patient Instructions: The patient had an opportunity to ask questions regarding the treatment plan. All questions were answered. Physical exam, labs, and imaging were discussed and reviewed in detail. As well as risks, benefits, and discussion of treatment choices. No major barriers to understanding were identified. The patient expressed understanding and agreement with the above treatment plan. The patient was made aware they should contact our office by phone for worsening of their current condition, the appearance of new symptoms, or with any questions or concerns. Compliance is encouraged with any medications and follow up testing that is ordered. It is a privilege to be allowed the opportunity to participate in? your urological care.? Again, if you have any questions or concerns If you have any questions or concerns please do not hesitate to contact me. The office is [phone]. This note is constructed using voice recognition software. While every effort has been made to ensure accuracy patent legal assistant errors may have been included. Yours sincerely, MALI Leiva Coding Level of Care Code New Pt Level 4 (94201) Diagnoses UTI (urinary tract infection) N39.0 Microscopic hematuria R31.29 Recurrent urinary tract infection N39.0 Complicated urinary tract infection N39.0 CPT Codes Post Residual Void - PVR CPT Code: 03361-[id number] Void Residual by ultrasound ([id number])
== END 2023-06-23 11:53 | disposition home or self-care (01) ==
PROVIDERS: PCP Internal Medicine; Referring Provider Internal Medicine; Visit Provider Nurse Practitioner Family
DX: R33.9 Retention of urine, unspecified (principal)
CPT/HCPCS: 99204

== ENCOUNTER → 2023-07-05 11:16 | Outpatient (BNVA) | payer OTHER, SELFPAY | PROVIDERS: PCP Internal Medicine; Visit Provider Internal Medicine ==

== ENCOUNTER 2023-07-20 10:07 | Outpatient (REF) | payer OTHER, SELFPAY ==
[2023-07-20 10:42] LABS: Hematocrit 40.8 % (42.0-52.0); Hemoglobin 12.8 g/dl (14.0-18.0); Mean Corpuscular HGB Conc 31.4 g/dl (31.0-36.0); Mean Corpuscular Hemoglobin 27.8 pg (27.0-33.0); Mean Corpuscular Volume 88.5 fL (80.0-98.0); Mean Platelet Volume 10.8 fL (9.4-12.4); Platelet Count 147 X10*3/uL (160-400); Red Blood Count 4.61 X10*6/uL (4.60-5.80); Red Cell Distribution Width 14.6 % (11.0-16.0); White Blood Count 7.1 X10*3/uL (4.8-10.8)
[2023-07-20 11:26] LABS: Alanine Aminotransferase 13 U/L (0-40); Albumin Level 3.8 g/dL (3.5-5.0); Alkaline Phosphatase 100 U/L (39-117); Aspartate Amino Transferase 15 U/L (5-37); Bilirubin Direct 0.3 mg/dL (0.0-0.5); Bilirubin Total 0.5 mg/dL (0.0-1.0); Lipase 26 U/L (8-78); Total Protein 7.1 g/dL (6.5-8.0)
[2023-07-21 09:08] LABS: Carbohydrate Antigen 19-9 36 U/mL (<34)
== END 2023-07-20 10:08 | disposition home or self-care (01) ==
LOC: HO.LAB 10:07
PROVIDERS: PCP Internal Medicine; Visit Provider Internal Medicine Gastroenterology
DX: K80.50 Calculus of bile duct without cholangitis or cholecystitis without obstruction (principal)
CPT/HCPCS: 36415; 80076; 83690; 85027; 86301

== ENCOUNTER 2023-08-01 15:47 | Outpatient (REF) | payer OTHER, SELFPAY ==
--- NOTE | ~2023-08-01 | US_ITS ---
EXAMINATION: US RETROPERITONEAL COMPLETE (RENAL) CLINICAL INFORMATION: Urinary tract infection, site not specified. COMPARISON: Ultrasound abdomen limited 03/31/2023. CT abdomen and pelvis 03/30/2023. Ultrasound abdomen limited 02/13/2023. TECHNIQUE: Real-time imaging of the kidneys and bladder. FINDINGS: RIGHT KIDNEY: 11.9 x 5.5 x 6.1 cm (SAG x AP x TRV). The kidney is normal in size, contour, and echogenicity. Renal cortical thickness is normal. No renal calculi or hydronephrosis. 3.0 cm simple cyst in the mid to lower pole and 1.8 cm simple cyst in the lower pole. No imaging follow-up is recommended. LEFT KIDNEY: 13.0 x 6.7 x 7.2 cm (SAG x AP x TRV). The kidney is normal in size, contour, and echogenicity. Renal cortical thickness is normal. No renal calculi or hydronephrosis. 8.0 cm simple cyst in the upper pole and 2.3 cm simple cyst in the lower pole. No imaging follow-up is recommended. BLADDER: Distended urinary bladder with prevoid volume 425 mL. There is a 4.9 cm superior diverticulum. Large post void residual of 394 mL. ADDITIONAL FINDINGS: The prostate is enlarged measuring 36 mL. US/US retroperitoneal comp IMPRESSION: Enlarged prostate measuring 36 mL. Distended urinary bladder with superior diverticulum. Large post void residual 394 mL. No hydronephrosis.
== END 2023-08-01 15:48 | disposition home or self-care (01) ==
LOC: HO.US 15:47
PROVIDERS: PCP Internal Medicine; Visit Provider Nurse Practitioner Family
DX: N39.0 Urinary tract infection, site not specified (principal); R31.29 Other microscopic hematuria
CPT/HCPCS: 76770

== ENCOUNTER 2023-08-11 10:40 | Outpatient (AMB) | payer OTHER, SELFPAY ==
--- NOTE | 2023-08-11 11:06 | A.OFFVIS_ITS ---
Intake Visit Reasons: cysto/US Intake Note: Patient is Present for Cystoscopy Urology Med: Tamsulosin Antibiotic Allergy: Penicillin Blood Thinner: Eliquis URO- G Disposable Cystoscope lot: [id number] exp: 05/04/26 Allergies Penicillins Adverse Reaction (Intermediate, Verified 08/11/23 11:10) HALLUCINATIONS, SWEATS Medication List - Last Reconciled 08/11/23 by Mateo Swain MD allopurinol 300 mg PO DAILY amlodipine 5 mg PO DAILY@1200 apixaban (Eliquis) 5 mg PO BID 30 days ascorbic acid (vitamin C) (Vitamin C) 1,000 mg PO BID cholecalciferol (vitamin D3) 50 mcg PO DAILY cyanocobalamin (vitamin B-12) 200 mcg PO DAILY empagliflozin (Jardiance) 10 mg PO DAILY insulin aspart U-100 (Novolog U-100 Insulin aspart) 14 units subcut DAILY@1200 insulin glargine (Lantus Solostar U-100 Insulin) 36 units subcut BEDTIME@2100 ketoconazole 2% 1 appl topical BID PRN lactobacillus combination no.4 (Probiotic) 3,000 mmu cells PO DAILY methenamine hippurate 1 g PO BID pantoprazole (Protonix) 40 mg PO DAILY rosuvastatin 40 mg PO BEDTIME tamsulosin 0.4 mg PO BEDTIME torsemide 60 mg (3 x 20 mg) PO DAILY 90 days torsemide 20 mg PO DAILY@1200 PRN HPI Comments Details: Geovanni is a pleasant male. He is a patient of Dr. Ward. He is seen for the following urologic conditions - lower urinary tract symptoms - recurrent urinary tract infections - incomplete bladder emptying - renal cyst Here for cystoscopy - shows lot to bladder with debris Ultrasound showed large bladder diverticulum setting of insulin-dependent diabetes Trial of bethanechol to help with emptying Patient refuses to consider clean intermittent catheterization. 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 Hypertension Kidney disease Social History Household Members: Spouse Housing: House Do you presently have visiting nurse or other home services: Yes ([employer] 3x/week) Alcohol intake: never Comment: pt refuses Patient Tobacco Use Status: Never used Tobacco Advance Directives Date on File: 05/16/22 service: Yes Current occupational status: retired Review of Systems Const Denies chills and Denies fever(s) Card Reports no additional complaints and Denies syncope Resp Denies cough GI Denies abdominal pain and Denies heartburn Reports as per HPI and Denies change in libido Neuro Denies syncope Psych Denies change in libido Endo Denies change in libido Physical Exam Const General: cooperative, healthy appearing, comfortable and no acute distress Orientation/consciousness: patient oriented x3 HEENT Face and sinus: Yes normal facial exam Mouth: moist mucous membranes Neck Neck: Yes normal visual inspection, Yes full ROM and Yes trachea midline Chest Chest palpation & inspection: normal inspection of the chest Resp Effort & Inspection: normal respiratory effort, able to speak in complete sentences and no respiratory distress GI Inspection: Yes normal to inspection Back/Spine/Pelvis Cervical Spine: normal cervical lordosis Thoracic/Lumbar Spine: thoracic and lumbar spine normal to inspection Skin General skin exam: no rashes or lesions noted Neuro General: patient oriented x3, gait normal, tone normal and moves all extremities Extrem General: Yes normal to inspection and Yes capillary refill normal Office Procedures Cystoscopy Consent Discussed risk and benefit or proposed procedure with the patient. Information consent for procedure given to the patient. Discussed technical aspects, risks, benefits and alternatives in full. Addressed all of the patient's questions and concerns regarding the procedure. The patient demonstrated knowledge and understanding. They wish to proceed with this procedure. Preparation The patient was prepped in the usual manner. A secretary office clerk was present and in the room. Genitalia was prepped with betadine solution in a sterile manner. Lidocaine Jelly 2% was placed into the urethra and 16Fr flexible Olympus cystoscope was inserted into the meatus after adequate lubrication. Procedure Current UTI with incomplete bladder emptying Cystoscopy performed using a disposable [employer]comvue digital 16 [place] cystoscope. Meatus circumcised Urethra anterior and posterior urethra normal Prostatic Urethra unremarkable Bladder examination with retroflexion of cystoscope Bladder Orifices normal shape and position Bladder Capacity large Trabeculations grade 1 Cellule Formation - Diverticulum Formation large superior diverticulum Mucosal Erythema mucosal with inflammation Bladder Tumor - [id number] DISPOSABLE SCOPE URO-G FLEXIBLE SCOPE Procedure code (CPT) selection complete Office Meds lidocaine HCl 2 % mucosal jelly in applicator Performing Provider: Mateo Swain MD Performing Location: [facility] Administered by: Aimee Lugo RN on 08/11/23 11:34 Dose Route Admin Location Dispensed Lot Number Expiration Date NDC Diecast Machine Operator 10 mL intra-urethral 10 mL nitrofurantoin monohydrate/macrocrystals 100 mg capsule Performing Provider: Mateo Swain MD Performing Location: [facility] Administered by: Aimee Lugo RN on 08/11/23 11:34 Dose Route Admin Location Dispensed Lot Number Expiration Date NDC Diecast Machine Operator 100 mg PO 1 cap naproxen 500 mg tablet Performing Provider: Mateo Swain MD Performing Location: [facility] Administered by: Aimee Lugo RN on 08/11/23 11:34 Dose Route Admin Location Dispensed Lot Number Expiration Date NDC [employer]cast Machine Operator 500 mg PO 1 tab Results AMB Urinalysis, Automated UA Leukoctes 125 Dieter/uL Last Edit by RASHAD Salgdao on 08/11/23 11:32 UA Nitrite Positive Last Edit by RASHAD Salgado on 08/11/23 11:32 UA Urobilinogen 0.2 mg/dL Last Edit by RASHAD Salgado on 08/11/23 11:3 2 UA Protein 100 mg/dL Last Edit by RASHAD Salgado on 08/11/23 11:32 UA pH 5.5 Last Edit by RASHAD Salgado on 08/11/23 11:32 UA Blood 10 Sunil/uL Last Edit by RASHAD Salgado on 08/11/23 11:32 UA Specific [place] 1.010 Last Edit by RASHAD Salgado on 08/11/23 11: 32 UA Ketone Negative Last Edit by RASHAD Salgado on 08/11/23 11:32 UA Bilirubin 0 mg/dL Last Edit by RASHAD Salgado on 08/11/23 11:32 UA Glucose 500 mg/dL Last Edit by RASHAD Salgado on 08/11/23 11:32 Results Reviewed Results Reviewed: Laboratory Last Values Urine pH (Auto) 5.5 08/11/23 11:11 Specific [place] (Auto) 1.010 08/11/23 11:11 Urine Protein (Auto) 100 mg/dL 08/11/23 11:11 Glucose (UA)(Auto) 500 mg/dL 08/11/23 11:11 Urine Ketones (Auto) Negative 08/11/23 11:11 Urine Blood (Auto) 10 Sunil/uL 08/11/23 11:11 Urine Nitrite (Auto) Positive 08/11/23 11:11 Urine Bilirubin (Auto) 0 mg/dL 08/11/23 11:11 Urine Urobilinogen (Auto) 0.2 mg/dL 08/11/23 11:11 Leukocyte Esterase (Auto) 125 Dieter/uL 08/11/23 11:11 Assessment & Plan Assessment & Plan (1) Incomplete emptying of bladder due to benign prostatic hyperplasia: Code(s): N40.1 - Benign prostatic hyperplasia with lower urinary tract symptoms; R33.9 - Retention of urine, unspecified Category: Medical Plan Trial bethanechol Orders: Orders AMB Urinalysis Automated Today Z13.9 - Encounter for screening, unspecified AMB Cystoscopy Today N39.0 - Urinary tract infection, site not specified Medications: New bethanechol chloride 50 mg PO BID 30 days 60 tabs 2RF N39.0 - Urinary tract infection, site not specified, N40.1 - Benign prostatic hyperplasia with lower urinary tract symptoms, R33.9 - Retention of urine, unspecified Discontinued nitrofurantoin macrocrystal must administer with a meal/food\ Please hold methenamine and vitamin c while on treatment dose for UTI. Discontinued Reason: Patient Completed Course 100 mg PO BID 14 days 28 caps 0RF N39.0 - Urinary tract infection, site not specified Patient Instructions: Imaging studies, laboratory and physical exam results were discussed and reviewed in detail. No major barriers to patient understanding were identified. An opportunity to ask questions regarding the treatment plan was provided. All questions were answered. The patient expressed understanding and agreement with the above treatment plan. The patient is aware they should contact our office by phone for worsening of their current condition or the appearance of new urologic symptoms. Compliance is encouraged with any medications and followup testing that is ordered. It is a privilege to participate in the urologic care of your patient. If you have any questions or concerns regarding treatment for the above conditions, or other urologic issues, please do not hesitate to contact me. The office telephone contact is [phone]. This note is constructed using voice recognition software. While every effort has been made to ensure accuracy managing attorney errors may have been included. Yours sincerely, Dr Mateo Swain MD, [facility] - Urology Providers of Expert, Compassionate Care for the Genitourinary System Coding Level of Care Code Est Pt Level 4 (24930) Diagnoses Incomplete emptying of bladder due to benign prostatic hyperplasia N40.1; R33.9 CPT Codes Cystoscopy - CPT: 61320-[id number] ([id number])
== END 2023-08-11 11:53 | disposition home or self-care (01) ==
PROVIDERS: PCP Internal Medicine; Visit Provider Urology
DX: N40.1 Benign prostatic hyperplasia with lower urinary tract symptoms (principal); R33.9 Retention of urine, unspecified; Z13.9 Encounter for screening, unspecified; N39.0 Urinary tract infection, site not specified
CPT/HCPCS: 52000; 99214

== ENCOUNTER → 2023-08-11 10:40 | Outpatient (BNVA) | payer OTHER, SELFPAY | PROVIDERS: PCP Internal Medicine; Visit Provider Urology | DX: N40.1 Benign prostatic hyperplasia with lower urinary tract symptoms (principal); R33.8 Other retention of urine; N39.0 Urinary tract infection, site not specified | CPT/HCPCS: 52000; 81003; 99212 ==

== ENCOUNTER 2023-10-30 15:17 | Outpatient (AMB) | payer OTHER, SELFPAY ==
--- NOTE | 2023-10-30 15:18 | MHC.OFFVIS ---
Vital Signs 10/30/23 15:19 Height 5 ft 10 in Weight 380 lb BMI 54.5 BP 140/80 H Blood Pressure Location Lt brachial Position Sitting Pulse 60 Intake Visit Reasons: fu CHF Intake Note: Follow-up dx CHF weight is up took extra torsemide over the weekend dropped 7lbs Fly Winder Required: No Allergies Penicillins Adverse Reaction (Intermediate, Verified 08/11/23 11:10) HALLUCINATIONS, SWEATS Medication List - Last Reconciled 10/30/23 by Reji Bailey MD allopurinol 300 mg PO DAILY amlodipine 5 mg PO DAILY@1200 apixaban (Eliquis) 5 mg PO BID 30 days ascorbic acid (vitamin C) (Vitamin C) 1,000 mg PO BID bethanechol chloride 50 mg PO BID 30 days cholecalciferol (vitamin D3) 50 mcg PO DAILY cyanocobalamin (vitamin B-12) 200 mcg PO DAILY empagliflozin (Jardiance) 10 mg PO DAILY fosfomycin tromethamine 1 packet PO Q3D 15 days insulin aspart U-100 (Novolog U-100 Insulin aspart) 14 units subcut DAILY@1200 insulin glargine (Lantus Solostar U-100 Insulin) 36 units subcut BEDTIME@2100 ketoconazole 2% 1 appl topical BID PRN lactobacillus combination no.4 (Probiotic) 3,000 mmu cells PO DAILY methenamine hippurate 1 g PO BID pantoprazole (Protonix) 40 mg PO DAILY rosuvastatin 40 mg PO BEDTIME tamsulosin 0.4 mg PO BEDTIME torsemide 20 mg PO DAILY@1200 PRN torsemide 60 mg PO DAILY HPI Comments Details: Geovanni comes for longer gap. He said his about 20 lb overweight with fluid. He said over the weekend he was 7 lb up in 1 day and he took extra torsemide, total of 80 mg and lost some weight but continues to remain fluid overloaded. Continues to have trouble breathing. Minimal activity level. Denies any other complaints. No chest pain. No lightheadedness, syncope. No bleeding issues or neurologic events. [facility] Medical History Abnormal CT of the abdomen Acute UTI Diabetes Morbid obesity Chronic atrial fibrillation History of ESBL E. 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 Hypertension Kidney disease Social History Household Members: Spouse Housing: House Do you presently have visiting nurse or other home services: Yes (GROUP SOCIAL WORKER 3x/week) Alcohol intake: never Comment: pt refuses Patient Tobacco Use Status: Never used Tobacco Advance Directives Date on File: 05/16/22 service: Yes Current occupational status: retired Review of Systems Const Denies chills, Denies fatigue, Denies fever(s), Denies frequent falls, Denies weakness, Denies weight gain and Denies weight loss ENT Denies dizziness Card Denies chest pain, Denies leg edema, Denies lightheadedness, Denies palpitations, Denies dyspnea, Denies dyspnea on exertion, Denies orthopnea and Denies other (loss of consciousness) Resp Denies cough, Denies dyspnea and Denies dyspnea on exertion GI Denies hematochezia and Denies change in stool character Musc Denies abnormal gait, Denies muscle weakness, Denies numbness, Denies radiating pain into limb and Denies tingling Neuro Denies abnormal gait, Denies dizziness, Denies frequent falls, Denies numbness, Denies tingling and Denies weakness Endo Denies fatigue and Denies palpitations Physical Exam Vital Signs: Last Vital Signs Pulse 60 10/30/23 15:19 BP 140/80 H 10/30/23 15:19 BMI result Body Mass Index 54.5 Const Other: Morbidly obese General: cooperative, healthy appearing, comfortable and no acute distress Orientation/consciousness: patient oriented x3 Neck Neck: Yes JVD Resp Effort & Inspection: normal respiratory effort Auscultation: clear to auscultation bilaterally, no crackles, no rales, no rhonchi and no wheezes Cardio Jugular venous distension: JVD Rate: regular rate Rhythm: abnormal rhythm irregularly irregular Heart sounds: S1 normal heart sound present, S2 normal heart sound present, no murmurs and no rubs Neuro General: patient oriented x3 and no focal motor deficits Extrem Other: Bilateral lower leg swelling with redness to skin. Patient reports improved since hospital admission General: No clubbing, No cyanosis and Yes edema (Three to 4+ below knee edema) Psych Appearance: grossly normal Mental Status: mental status grossly normal Speech and movement: Normal speech and movement present Assessment & Plan Assessment & Plan (1) Chronic heart failure with preserved ejection fraction: Code(s): I50.32 - Chronic diastolic (congestive) heart failure Category: Medical Plan: Chronic heart failure with preserved ejection fraction with predominantly right heart failure syndrome with chronic kidney disease with cardiorenal syndrome with poor diuretic response most likely suggestive of diuretic resistance. He said he is about 20 lb overweight and is at 380 lb today. His dry weight he thinks his at 360 lb. Advised to start metolazone half an hour prior to his morning torsemide tomorrow and watch for diuretic response. Daily weight monitoring avoidance of salt loading was discussed. Continue 80 mg of torsemide. Continue Jardiance. Once his weight is down to 360 lb advise BNP and BNP. Additional torsemide and metolazone if he has poor diuretic response to 1st dose of metolazone. This was discussed with him. Management was discussed in details. Continue aggressive blood pressure control. Overall prognosis is guarded. Continue participate in aggressive weight loss program. (2) Chronic atrial fibrillation: Code(s): I48.20 - Chronic atrial fibrillation, unspecified Category: Medical Plan: Chronic rate control atrial fibrillation. Continue current rate control strategy. Currently on Eliquis 5 mg b.i.d.. Quarterly renal function test should be pursued. Will follow up in the clinic in 3 months time, sooner p.r.n.. Thank you for allowing me to partake in his care Orders: Orders Basic Metabolic Panel Today Reji Bailey MD I50.32 - Chronic diastolic (congestive) heart failure B Type Natriuretic Peptide Today Reji Bailey MD I50.32 - Chronic diastolic (congestive) heart failure Medications: New metolazone 2.5 mg PO Q OTHER DAY PRN 14 tabs 5RF weight gain Reji Bailey MD Changed From torsemide 60 mg (3 x 20 mg) PO DAILY 90 days 270 tabs 1RF To torsemide 2 am 1 noon 60 mg PO DAILY Celia M KARINA Patel-Sidney Coding Level of Care Code Est Pt Level 4 (58720) Diagnoses Chronic heart failure with preserved ejection fraction I50.32 Chronic atrial fibrillation I48.20
[2023-10-30 15:19] VITALS: BP 140/80; PULSE 60; BMI 54.5
== END 2023-10-30 15:53 | disposition home or self-care (01) ==
PROVIDERS: PCP Internal Medicine; Visit Provider Internal Medicine Cardiovascular Disease
DX: I50.32 Chronic diastolic (congestive) heart failure (principal); I48.20 Chronic atrial fibrillation, unspecified
CPT/HCPCS: 99214

== ENCOUNTER → 2023-10-30 15:17 | Outpatient (BNVA) | payer OTHER, SELFPAY | PROVIDERS: PCP Internal Medicine; Visit Provider Internal Medicine Cardiovascular Disease | DX: I50.32 Chronic diastolic (congestive) heart failure (principal); I48.20 Chronic atrial fibrillation, unspecified | CPT/HCPCS: 99212 ==

== ENCOUNTER 2023-11-13 10:25 | Outpatient (AMB) | payer OTHER, SELFPAY ==
--- NOTE | 2023-11-13 10:38 | A.OFFVIS_ITS ---
Intake Visit Reasons: 3m follow up Intake Note: Patient presents today for a follow-up on recurrent UTI Urology Medications: Tamsulosin, Bethanechol, Methenamine Allergies to Antibiotic: Penicillins Blood Thinner: Eliquis Post Void Residual: 17ml's Natural Resource Economist Required: No Accompanied by: Sybil TRANSITION SPECIALIST Allergies Penicillins Adverse Reaction (Intermediate, Verified 11/13/23 11:46) HALLUCINATIONS, SWEATS Medication List - Last Reconciled 11/13/23 by ROHIT Leiva- allopurinol 300 mg PO DAILY amlodipine 5 mg PO DAILY@1200 apixaban (Eliquis) 5 mg PO BID 30 days ascorbic acid (vitamin C) (Vitamin C) 500 mg PO ONCE bethanechol chloride 50 mg PO BID 30 days cholecalciferol (vitamin D3) 50 mcg PO DAILY cyanocobalamin (vitamin B-12) 200 mcg PO DAILY empagliflozin (Jardiance) 10 mg PO DAILY insulin aspart U-100 (Novolog U-100 Insulin aspart) 14 units subcut DAILY@1200 insulin glargine (Lantus Solostar U-100 Insulin) 36 units subcut BEDTIME@2100 ketoconazole 2% 1 appl topical BID PRN lactobacillus combination no.4 (Probiotic) 3,000 mmu cells PO DAILY methenamine hippurate 1 g PO BID metolazone 2.5 mg PO Q OTHER DAY PRN pantoprazole (Protonix) 40 mg PO DAILY rosuvastatin 40 mg PO BEDTIME sulfamethoxazole-trimethoprim 800-160 mg orally 2 times a day; tamsulosin 0.4 mg PO BEDTIME torsemide 20 mg PO DAILY@1200 PRN torsemide 60 mg PO DAILY HPI Comments Details: Geovanni is a very pleasant 72-year-old male patient of Dr. Edouard who is accompanied by his TRANSITION SPECIALIST worker Gavi at todays office visit. He has a past medical history of recurrent urinary tract infections, diabetes, morbid obesity, chronic AFib on anticoagulation, C diff carrier, varicose vein, hypertension, and kidney disease. He presents to the office today for follow-up of his recurrent urinary tract infections, lower urinary tract symptoms, incomplete bladder emptying, and renal cyst. Of note, during last office visit approximately 3 months ago patient underwent an office cystoscopy with Dr. 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 In discussion with the patient today he reports feeling this has been helpful however also discusses having followed up with [place] for foul-smelling urine and has since been diagnosed with a urinary tract infection that grew out E coli. He is currently on antibiotic therapy. Unable to obtain urine for urinalysis today however PVR 17ml's. He reports compliance with methenamine and vitamin-C for suppression. He currently denies any bothersome urinary issues. Previous workup has included a retroperitoneal ultrasound 07/25 noting bilateral kidneys with no calculi or hydronephrosis. Bilateral benign simple renal cysts are noted that require no imaging follow-up per radiology report. The bladder is distended with a pre void bladder volume is approximately 425 mL. Postvoid bladder volume is 400 mL. The prostate is enlarged measuring approximately 36 mL. He denies urinary urgency, incontinence, nocturia, hematuria, dysuria, changes to urinary stream, flank pain, fever, and or chills. He is happy with his current voiding parameters on Flomax and bethanechol as prescribed Discussed at length potential causes for recurrent urinary tract infections. In review of patient's chart it appears PSA 03/25 0.3. He discusses upcoming appointment with Dr. Lange for his ongoing issues with constipation. He otherwise offers no other issues or concerns at this time. [facility] Medical History Abnormal CT of the abdomen Acute UTI Diabetes Morbid obesity Chronic atrial fibrillation History of ESBL E. 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 Hypertension Kidney disease Social History Household Members: Spouse Housing: House Do you presently have visiting nurse or other home services: Yes (TRANSITION SPECIALIST 3x/week) Alcohol intake: never Comment: pt refuses Patient Tobacco Use Status: Never used Tobacco Advance Directives Date on File: 05/16/22 service: Yes Current occupational status: retired Review of Systems Const Reports as per [facility] Eyes Reports no additional complaints ENT Reports no additional complaints Card Reports as per [facility] Resp Reports no additional complaints GI Reports as per HPI Reports as per [facility] Musc Reports as per HPI Neuro Reports as per HPI Psych Reports as per [facility] Endo Reports as per HPI Physical Exam Const General: cooperative, comfortable, no acute distress, well developed, alert and awake Orientation/consciousness: patient oriented x3 Limitations: ambulation with walker HEENT Head: Yes normal to inspection, Yes normocephalic and Yes atraumatic Ears: hearing grossly normal bilaterally Eyes General: appearance normal, both eyes and all related structures Neck Neck: Yes normal visual inspection and Yes trachea midline Chest Chest palpation & inspection: normal inspection of the chest Resp Effort & Inspection: normal respiratory effort and able to speak in complete sentences Cardio Rate: regular rate GI Inspection: Yes normal to inspection General: Yes no CVA tenderness Back/Spine/Pelvis Back: no CVA tenderness Skin General skin exam: no rashes or lesions noted Neuro General: patient oriented x3 Extrem General: Yes normal to inspection Psych Appearance: grossly normal and well kempt Mental Status: mental status grossly normal Speech and movement: Normal speech and movement present and Clear speech present Affect: normal affect Attitude: cooperative Thought process: Normal thought process present Thought content: Normal thought content present Office Procedures Post Void Residual Post Residual Void Post Void Residual (PVR): 17 [id number] Void Residual by ultrasound Assessment & Plan Assessment & Plan (1) UTI (urinary tract infection): Code(s): N39.0 - Urinary tract infection, site not specified (2) Microscopic hematuria: Code(s): R31.29 - Other microscopic hematuria (3) Recurrent urinary tract infection: Code(s): N39.0 - Urinary tract infection, site not specified Category: Medical (4) Complicated urinary tract infection: Code(s): N39.0 - Urinary tract infection, site not specified Category: Medical Plan Unable to obtain urine for urinalysis however PVR 12 mL. Discussed importance of taking in completing antibiotic therapy [facility] by [facility] Discussed at length potential causes for recurrent urinary tract infections patient is experiencing. Continue methenamine, vitamin-C, Flomax, and bethanechol as prescribed Discussed potential for near future microgen for further assessment and evaluation Discussed importance of drinking water daily. Discussed importance of managing constipation in relation to recurrent UTI's. Discussed at length affects of diabetes on the bladder, urinary symptoms, and overall health and well being. Follow-up in 3 months with PVR; or sooner with any issues, concerns, and or questions. Orders: Orders AMB Post Void Residual by ultrasound Today N40.1 - Benign prostatic hyperplasia with lower urinary tract symptoms, R33.9 - Retention of urine, unspecified Patient Instructions: The patient had an opportunity to ask questions regarding the treatment plan. All questions were answered. Physical exam, labs, and imaging were discussed and reviewed in detail. As well as risks, benefits, and discussion of treatment choices. No major barriers to understanding were identified. The patient expressed understanding and agreement with the above treatment plan. The patient was made aware they should contact our office by phone for worsening of their current condition, the appearance of new symptoms, or with any questions or concerns. Compliance is encouraged with any medications and follow up testing that is ordered. It is a privilege to be allowed the opportunity to participate in? your urological care.? Again, if you have any questions or concerns If you have any questions or concerns please do not hesitate to contact me. The office is [phone]. This note is constructed using voice recognition software. While every effort has been made to ensure accuracy community program assistant errors may have been included. Yours sincerely, MALI Leiva Coding Level of Care Code Est Pt Level 3 (68982) Complex EM visit Add On G2211 Diagnoses UTI (urinary tract infection) N39.0 Microscopic hematuria R31.29 Recurrent urinary tract infection N39.0 Complicated urinary tract infection N39.0 CPT Codes Post Residual Void - PVR CPT Code: 02600-Azmd Void Residual by ultrasound ([id number])
== END 2023-11-13 11:08 | disposition home or self-care (01) ==
LOC: HO.HUSH 10:25
PROVIDERS: PCP Internal Medicine; Visit Provider Nurse Practitioner Family
DX: N39.0 Urinary tract infection, site not specified (principal); R31.29 Other microscopic hematuria
CPT/HCPCS: 99213; G2211

== ENCOUNTER → 2023-11-13 10:25 | Outpatient (BNVA) | payer OTHER, SELFPAY | PROVIDERS: PCP Internal Medicine; Visit Provider Nurse Practitioner Family | DX: N39.0 Urinary tract infection, site not specified (principal); R31.29 Other microscopic hematuria | CPT/HCPCS: 51798; 99212 ==

== ENCOUNTER 2023-11-13 12:32 | Emergency (ER) | payer OTHER, SELFPAY ==
[2023-11-13 12:39] VITALS: BP 157/64; PULSE 85; RESP 18; TEMP 36.4; O2SAT 97; BMI 53.9
--- NOTE | 2023-11-13 12:40 | ED.GENADULT ---
HPI - General Adult General Chief complaint: Urogenital-Male Stated complaint: uti Time Seen by Provider: 11/13/23 22:28 Source: patient, RN notes reviewed and old records reviewed Mode of arrival: ambulatory Limitations: no limitations History of Present Illness ED Provider: Olinda HPI narrative: Number any 2-year-old male with past medical history significant for uncontrolled diabetes, chronic kidney disease, lymphedema, recurrent UTIs, hypertension, chronic AFib on Eliquis, CHF presents for evaluation of ?UTI. ? Patient reports that he has been having UTI symptoms including urinary frequency and burning with urination for the last week. Also complains of foul-smelling urine He went to the [facility] Monday and was prescribed Bactrim He followed up with his outpatient urologist today and saw ROHIT Leiva in Dr Swain's office and it was recommended that he continue all his medications as prescribed He subsequently received a call from the [facility] that the medication he was prescribed would not treat his current infection as the bacteria is resistant to Bactrim He was instructed to come to the ER for further evaluation and possible IV antibiotics/admission He reports some mild lower abdominal discomfort and chills but denies any tactile fevers or flank pain Related Data Home Medications ?Medication ?Instructions ?Recorded ?Confirmed allopurinol 300 mg tablet 300 mg PO DAILY 11/03/20 10/30/23 cholecalciferol (vitamin D3) 50 50 mcg PO DAILY 11/03/20 10/30/23 mcg (2,000 unit) capsule insulin aspart U-100 100 unit/mL 14 unit subcut DAILY@1200 11/03/20 10/30/23 subcutaneous solution (Novolog U-100 Insulin aspart) methenamine hippurate 1 gram tablet 1 g PO BID 11/03/20 10/30/23 tamsulosin 0.4 mg capsule 0.4 mg PO BEDTIME 11/03/20 10/30/23 cyanocobalamin (vitamin B-12) 100 200 mcg PO DAILY 05/02/22 10/30/23 mcg tablet insulin glargine 100 unit/mL (3 36 unit subcut BEDTIME@2100 05/02/22 10/30/23 mL) subcutaneous pen (Lantus Solostar U-100 Insulin) rosuvastatin 40 mg tablet 40 mg PO BEDTIME 05/02/22 10/30/23 amlodipine 5 mg tablet 5 mg PO DAILY@1200 08/02/22 10/30/23 ketoconazole 2 % topical cream 1 appl topical BID PRN Skin 04/01/23 10/30/23 Irritation lactobacillus combination no.4 3 3,000 mmu cells PO DAILY 04/27/23 10/30/23 billion cell capsule (Probiotic) torsemide 20 mg tablet 20 mg PO DAILY@1200 PRN 04/27/23 10/30/23 torsemide 20 mg tablet 60 mg PO DAILY 10/30/23 10/30/23 ascorbic acid (vitamin C) 1,000 mg 500 mg PO ONCE 11/13/23 tablet (Vitamin C) sulfamethoxazole 800 See Rx Instructions PO BID 11/13/23 mg-trimethoprim 160 mg tablet Previous Rx's ?Medication ?Instructions ?Recorded apixaban 5 mg tablet (Eliquis) 5 mg PO BID 30 days #60 tabs 03/26/20 empagliflozin 10 mg tablet 10 mg PO DAILY #30 tabs 08/10/22 (Jardiance) pantoprazole 40 mg tablet,delayed 40 mg PO DAILY #30 tabs 02/13/23 release (Protonix) bethanechol chloride 50 mg tablet 50 mg PO BID 30 days #60 tabs 09/13/23 metolazone 2.5 mg tablet 2.5 mg PO Q OTHER DAY PRN weight 10/30/23 gain #14 tabs cefpodoxime 200 mg tablet 200 mg PO Q12H #20 tabs 11/13/23 Allergies Allergy/AdvReac Type Severity Reaction Status Date / Time Penicillins AdvReac Intermediate HALLUCINATIONS, Verified 11/13/23 12:41 SWEATS Review of Systems Constitutional: Constitutional: Denies body ache(s), Reports chills, Denies fever(s) and Denies headache(s) Eyes: Eyes: Denies blurry vision ENT: Denies headache(s) and Denies sore throat Cardiovascular: Cardiovascular: Denies chest pain and Denies dyspnea Respiratory: Respiratory: Denies cough and Denies dyspnea Gastrointestinal: Gastrointestinal: Reports abdominal pain, Denies nausea and Denies vomiting Genitourinary: Genitourinary: Reports difficulty urinating and Reports dysuria Musculoskeletal: Musculoskeletal: Denies back pain Integumentary/Breasts: Skin/Breast: Denies rash Neurologic: Denies headache(s) [facility] Past Medical History Medical History Abnormal CT of the abdomen Acute UTI Diabetes Morbid obesity Chronic atrial fibrillation History of ESBL E. 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 Hypertension Kidney disease Social History Social History Household Members: Spouse Housing: House Do you presently have visiting nurse or other home services: Yes ([employer] PATH[employer] PRN 3x/week) Alcohol intake: never Comment: pt refuses Patient Tobacco Use Status: Never used Tobacco Advance Directives: Yes Advance Directives on File: Yes Advance Directives Date on File: 05/16/22 Do you have a plan to hurt others: No Plan service: Yes Current occupational status: retired Physical Exam ED Vital Signs: Vital Signs - 24 hr 11/13/23 12:39 11/13/23 17:30 11/13/23 23:08 Temperature 97.5 F 97.4 F 97.5 F Pulse Rate 85 73 82 Respiratory Rate 18 18 20 Blood Pressure 157/64 H 129/67 137/51 L Pulse Oximetry 97 100 98 Oxygen Delivery Method Room Air Room Air Room Air BMI result Body Mass Index 53.9 Const General: healthy appearing, comfortable, no acute distress, alert and awake Nutritional Appearance: well nourished Orientation/consciousness: patient oriented x3 HENMT Head: Yes normocephalic and Yes atraumatic Eyes Eyelids: Yes eyelids normal Conjunctivae: conjunctivae normal Sclerae: sclerae normal Corneas: corneas normal Pupils: Equal, round and reactive pupils present EOM: EOMs intact bilaterally Neck Neck: Yes full ROM Resp Effort & Inspection: normal respiratory effort, able to speak in complete sentences and not labored Cardio Rate: regular rate Rhythm: regular rhythm GI Inspection: No distended Palpation (GI): Soft to palpation, not firm, nontender, no guarding and not rigid Skin General skin exam: elasticity normal Neuro General: patient oriented x3 Cranial nerves: Yes Equal, round and reactive pupils present and Yes Bilaterally intact EOM present Cognition (Neuro): normal cognition Extrem Other: Moving all extremities well without any obvious deformities Course Course Course Narrative: RME performed by Martha Mijares PA-C. Patient is a 72 year old assigned male at presenting to the emergency department with a urinary tract infection. Patient states he has a UTI and was told to come to the ER because the kind of infection he has, no pills will kill and it has to be done by IV. Patient states that this has happened before and he has required medical admission. Detailed physical exam and review of systems are deferred to the assurance senior. Labs ordered. Patient placed back in the waiting room pending room availability and results. Medications Administered Discontinued Medications Generic Name Dose Route Start Last Admin Trade Name Freq PRN Reason Stop Dose Admin Ceftriaxone Sodium 1 gm/ 50 mls @ 100 mls/hr 11/13/23 22:41 11/13/23 23:11 Sodium Chloride IV 11/13/23 23:10 100 mls/hr ONCE ONE Administration Medical Decision Making Medical Decision Making [facility] Narrative: 72-year-old male with past medical history as documented above presents for evaluation of complicated UTI. [place] [address] but is vital signs within normal limits, there is no evidence of sepsis. Again, he does have frequent UTIs. His last 3 urine cultures grew out E coli urine that was resistant to Bactrim but susceptible to cephalosporins. He is given that the most recent cultures are all susceptible to cephalosporins I think we can treat the patient with IV ceftriaxone x1 dose and discharge him with additional prescription of cefpodoxime to treat complicated UTI. He was given return precautions Differential Diagnosis Differential Diagnoses: The differential diagnosis associated with the presentation includes Complicated UTI Cystitis ESBL Obstructive uropathy Admission/Observation Consideration of admission/observation: Escalation of care including admission/observation considered Consider admission for IV antibiotics, but the patient should cefpodoxime Lab Data [facility] Lab Attestation statement: I reviewed the patient's lab results. Slight leukocytosis to 12.1 K. no anemia. Normal platelet count. No electrolyte abnormalities. The patient does have chronic kidney disease with his current BUN and creatinine consistent with his baseline. Patient is a known diabetic with a glucose of 218. 11/13/23 13:05 11/13/23 13:05 Labs: Lab Results 11/13/23 11/13/23 Range/Units 13:05 13:34 WBC 12.1 H (4.8-10.8) X10*3/uL RBC 5.30 (4.60-5.80) X10*6/uL Hgb 15.6 D (14.0-18.0) g/dl Hct 47.6 (42.0-52.0) % MCV 89.8 (80.0-98.0) fL MCH 29.4 (27.0-33.0) pg MCHC 32.8 (31.0-36.0) g/dl RDW 17.2 H (11.0-16.0) % Plt Count 199 D (160-400) X10*3/uL MPV 11.3 (9.4-12.4) fL Immature Gran % (Auto) 0.7 H (0.0-0.4) % Neut % (Auto) 82.1 H (45-73) % Lymph % (Auto) 8.9 L (20-40) % [place] % (Auto) 6.2 (2-11) % Eos % (Auto) 1.8 (0-4) % Baso % (Auto) 0.3 (0-2) % Lymph # (Auto) 1.1 L (1.2-4.9) X10*3/uL [place] # (Auto) 0.8 (0.1-1.2) X10*3/uL Eos # (Auto) 0.2 (0.0-0.4) X10*3/uL Baso # (Auto) 0.0 (0.0-0.2) X10*3/uL Abs Immat Gran (auto) 0.08 H (0.00-0.03) X10*3/uL Absolute Neuts (auto) 9.9 H (2.0-8.3) x10*3/uL Absolute Nucleated RBC 0.000 (0.0-0.012) X10*3/uL Nucleated RBC % (auto) 0.0 (0.0-0.2) /100WBC Sodium 137 (135-145) mmol/L Potassium 3.8 (3.3-5.1) mmol/L Chloride 101 (96-108) mmol/L Carbon Dioxide 23 (22-29) mmol/L Anion Gap 17 (12-20) BUN 56 H (9-16) mg/dL Creatinine 2.78 H (0.5-1.4) mg/dL Estim Creat Clear Calc 38.0 Estimated GFR 23 Random Glucose 218 H (60-115) mg/dL Calcium 9.1 (8.4-10.2) mg/dL Magnesium 2.5 (1.6-2.6) mg/dL Total Bilirubin 0.6 (0.0-1.0) mg/dL AST 24 (5-37) U/L ALT 17 (0-40) U/L Alkaline Phosphatase 102 (39-117) U/L Total Protein 7.7 (6.5-8.0) g/dL Albumin 4.0 (3.5-5.0) g/dL Urine Color Yellow Urine Appearance Cloudy Urine pH 6.0 (5.0-9.0) Ur Specific [place] 1.015 (1.005-1.025) Urine Protein 100 (2+) H (Neg-Trace) mg/dL Urine Glucose (UA) >=1000 H (Negative) mg/dL Urine Ketones Negative (Negative) mg/dL Urine Blood Small (1+) H (Negative) Urine Nitrite Negative (Negative) Ur Leukocyte Esterase Moderate (2+) H (Negative) Urine RBC 3-5 H (0-2) /HPF Urine WBC >50 H (0-5) /HPF Urine WBC Clumps Present Ur Squamous Epith Cells 0-2 (0-2) /HPF Urine Bacteria 4+ (None Seen) Hyaline Casts 0-2 (0-2) /LPF Discharge Plan Discharge Clinical Impression: Urinary tract infection Patient Disposition: Home, Self-Care Instructions: Urinary Tract Infection in Men (ED) Additional Instructions: Take cefpodoxime twice daily for 10 days to treat UTI. Your previous UTI as have been resistant to the Bactrim/sulfamethoxazole trimethoprim that you were prescribed. Stop this medication, but you have been susceptible to cephalosporins in the past and the cefpodoxime should cover your UTI Return for new or worsening symptoms including fever, inability to tolerate your medications Follow-up with your primary doctor Drink lots of fluids Prescriptions: New cefpodoxime 200 mg tablet 200 mg PO Q12H Qty: 20 0RF Rx Instructions: must administer with a meal/food No Action Eliquis 5 mg tablet 5 mg PO BID 30 Days Qty: 60 5RF bethanechol chloride 50 mg tablet 50 mg PO BID 30 Days Qty: 60 2RF methenamine hippurate 1 gram Tablet 1 g PO BID tamsulosin 0.4 mg Capsule 0.4 mg PO BEDTIME insulin aspart U-100 [Novolog U-100 Insulin aspart] 100 unit/mL Solution 14 unit SUBCUT DAILY@1200 allopurinol 300 mg Tablet 300 mg PO DAILY cholecalciferol (vitamin D3) 50 mcg (2,000 unit) Capsule 50 mcg PO DAILY ascorbic acid (vitamin C) [Vitamin C] 1,000 mg tablet 500 mg PO ONCE insulin glargine [Lantus Solostar U-100 Insulin] 100 unit/mL (3 mL) Insulin Pen 36 unit SUBCUT BEDTIME@2100 cyanocobalamin (vitamin B-12) 100 mcg Tablet 200 mcg PO DAILY rosuvastatin 40 mg Tablet 40 mg PO BEDTIME ketoconazole 2 % Cream 1 appl TOPICAL BID PRN (Reason: Skin Irritation) torsemide 20 mg tablet 20 mg PO DAILY@1200 PRN amlodipine 5 mg Tablet 5 mg PO DAILY@1200 Jardiance 10 mg Tablet 10 mg PO DAILY Qty: 30 0RF pantoprazole [Protonix] 40 mg tablet,delayed release (DR/EC) 40 mg PO DAILY Qty: 30 0RF sulfamethoxazole-trimethoprim 800-160 mg tablet See Rx Instructions PO BID Rx Instructions: orally 2 times a day; Probiotic 3 billion cell capsule 3,000 mmu cells PO DAILY Rx Instructions: administer with a meal torsemide 20 mg tablet 60 mg PO DAILY Rx Instructions: 2 am 1 noon metolazone 2.5 mg tablet 2.5 mg PO Q OTHER DAY PRN (Reason: weight gain) Qty: 14 5RF Print Language: Z[place]
[2023-11-13 13:19] LABS: MANUAL DIFF FLAG NO
[2023-11-13 13:25] LABS: Basophils Percent Auto 0.3 % (0-2); Eosinophils Absolute Auto 0.2 X10*3/uL (0.0-0.4); Eosinophils Percent Auto 1.8 % (0-4); Hematocrit 47.6 % (42.0-52.0); Hemoglobin 15.6 g/dl (14.0-18.0); Imm Gran Abs Auto 0.08 X10*3/uL (0.00-0.03); Imm Gran Pct Auto 0.7 % (0.0-0.4); Lymphocytes Absolute Auto 1.1 X10*3/uL (1.2-4.9); Lymphocytes Percent Auto 8.9 % (20-40); Mean Corpuscular HGB Conc 32.8 g/dl (31.0-36.0); Mean Corpuscular Hemoglobin 29.4 pg (27.0-33.0); Mean Corpuscular Volume 89.8 fL (80.0-98.0); Mean Platelet Volume 11.3 fL (9.4-12.4); Monocytes Absolute Auto 0.8 X10*3/uL (0.1-1.2); Monocytes Percent Auto 6.2 % (2-11); Neutrophils Absolute Auto 9.9 x10*3/uL (2.0-8.3); Neutrophils Percent Auto 82.1 % (45-73); Platelet Count 199 X10*3/uL (160-400); Red Cell Distribution Width 17.2 % (11.0-16.0); White Blood Count 12.1 X10*3/uL (4.8-10.8)
[2023-11-13 13:42] LABS: Alanine Aminotransferase 17 U/L (0-40); Alkaline Phosphatase 102 U/L (39-117); Anion Gap 17 (12-20); Aspartate Amino Transferase 24 U/L (5-37); Bilirubin Total 0.6 mg/dL (0.0-1.0); Blood Urea Nitrogen 56 mg/dL (9-16); Calcium 9.1 mg/dL (8.4-10.2); Carbon Dioxide 23 mmol/L (22-29); Chloride 101 mmol/L (96-108); Estimated Glomerular Filt Rate 23; Glucose Random 218 mg/dL (60-115); Magnesium 2.5 mg/dL (1.6-2.6); Potassium 3.8 mmol/L (3.3-5.1); Sodium 137 mmol/L (135-145); Total Protein 7.7 g/dL (6.5-8.0)
[2023-11-13 13:48] LABS: Appearance Urine Cloudy; Color Urine Yellow; Glucose Urine UA >=1000 mg/dL (Negative); Leukocyte Esterase Urine Moderate (2+) (Negative); Nitrite Urine Negative (Negative); Specific Gravity - Urine 1.015 (1.005-1.025); UMIC TRIGGER UACC YES; Urine Blood Small (1+) (Negative); Urine Ketones Negative (Negative); Urine Protein 100 (2+) mg/dL (Neg-Trace)
[2023-11-13 14:00] LABS: Bacteria Urine 4+ (None Seen); Hyaline Casts Urine 0-2 /LPF (0-2); Squamous Epithelial Cell Urine 0-2 /HPF (0-2); UACC Culture Trigger YES; WBC Clumps Urine Present; WBC Urine >50 /HPF (0-5)
[2023-11-13 17:30] VITALS: BP 129/67; PULSE 73; RESP 18; TEMP 36.3; O2SAT 100
[2023-11-13 23:08] VITALS: BP 137/51; PULSE 82; RESP 20; TEMP 36.4; O2SAT 98
[2023-11-13] MEDS: cefTRIAXone sodium 1 GM in 0.9 % Sodium Chloride 50 ML IV (23:11)
[2023-11-13 23:43] VITALS: BP 137/51; PULSE 82; RESP 20; TEMP 36.4; O2SAT 98
== END 2023-11-13 23:44 | disposition home or self-care (01) ==
PROVIDERS: Physician Assistant Medical; Emergency Provider Emergency Medicine; PCP Internal Medicine
DX: N39.0 Urinary tract infection, site not specified (principal); I10 Essential (primary) hypertension; I48.91 Unspecified atrial fibrillation; Z79.01 Long term (current) use of anticoagulants; Z79.899 Other long term (current) drug therapy
CPT/HCPCS: 36415; 80053; 81001; 83735; 85025; 87086; 87088; 87186; 96374; 99284; J0696

== ENCOUNTER 2023-11-22 11:51 | Emergency (ER) | payer OTHER, SELFPAY ==
--- NOTE | ~2023-11-22 | XR_ITS ---
EXAMINATION: XR CHEST CLINICAL INFORMATION: Shortness of breath COMPARISON: 05/01/2023 TECHNIQUE: 2 views of the chest were obtained. FINDINGS: Lungs appear clear. No pleural effusion. Heart and pulmonary vessels are normal. Slightly elevated right hemidiaphragm is unchanged. XR/XR chest 2V IMPRESSION: No active disease. Electronically signed by: Alfred Cordova MD 11/22/2023 05:23 PM EDT
[2023-11-22 11:59] VITALS: BP 150/72; BP 166/74; PULSE 69; PULSE 74; RESP 20; TEMP 36.8; O2SAT 100; O2SAT 97; BMI 55.7
--- NOTE | 2023-11-22 12:01 | ED.SOB ---
HPI - SOB/Dyspnea General Chief Complaint: General Medical Stated Complaint: SOB, 99% RA,FEVER,CHILLS,NAUSEA PER EMS Time Seen by Provider: 11/22/23 12:01 Source: patient, EMS, RN notes reviewed and old records reviewed Mode of arrival: EMS Limitations: no limitations History of Present Illness ED Provider: HUMBERTO SINGH PA-C HPI Narrative: 73-year-old male with past medical history significant for uncontrolled diabetes, CKD, lymphedema, recurrent UTIs, hypertension, chronic atrial fibrillation on Eliquis, CHF presents to the ED today via EMS from home for evaluation of shortness of breath, left sided chest heaviness, chills, and general malaise x1 week, worsening x3 days. Patient was recently advised to limit his fluid intake d/t fluid overload and suspected diuretic resistance. He currently on dual treatment of torsemide and metolazone. Denies known sick contacts and reports testing negative for covid twice via home tests. Denies documented fever, sore throat, chest pain, palpitations, wheezing, cough, sputum production, orthopnea. Patient was seen in our ED on 11/13/23 and diagnosed with a urinary tract infection after presenting with urinary frequency and dysuria. He was started on a 10 day course of cefpodoxime which she has been taking as prescribed. Denies any missed doses. Denies any urinary symptoms at present. Related Data Home Medications ?Medication ?Instructions ?Recorded ?Confirmed allopurinol 300 mg tablet 300 mg PO DAILY 11/03/20 10/30/23 cholecalciferol (vitamin D3) 50 50 mcg PO DAILY 11/03/20 10/30/23 mcg (2,000 unit) capsule insulin aspart U-100 100 unit/mL 14 unit subcut DAILY@1200 11/03/20 10/30/23 subcutaneous solution (Novolog U-100 Insulin aspart) methenamine hippurate 1 gram tablet 1 g PO BID 11/03/20 10/30/23 tamsulosin 0.4 mg capsule 0.4 mg PO BEDTIME 11/03/20 10/30/23 cyanocobalamin (vitamin B-12) 100 200 mcg PO DAILY 05/02/22 10/30/23 mcg tablet insulin glargine 100 unit/mL (3 36 unit subcut BEDTIME@2100 05/02/22 10/30/23 mL) subcutaneous pen (Lantus Solostar U-100 Insulin) rosuvastatin 40 mg tablet 40 mg PO BEDTIME 05/02/22 10/30/23 amlodipine 5 mg tablet 5 mg PO DAILY@1200 08/02/22 10/30/23 ketoconazole 2 % topical cream 1 appl topical BID PRN Skin 04/01/23 10/30/23 Irritation lactobacillus combination no.4 3 3,000 mmu cells PO DAILY 04/27/23 10/30/23 billion cell capsule (Probiotic) torsemide 20 mg tablet 20 mg PO DAILY@1200 PRN 04/27/23 10/30/23 torsemide 20 mg tablet 60 mg PO DAILY 10/30/23 10/30/23 ascorbic acid (vitamin C) 1,000 mg 500 mg PO ONCE 11/13/23 tablet (Vitamin C) sulfamethoxazole 800 See Rx Instructions PO BID 11/13/23 mg-trimethoprim 160 mg tablet Previous Rx's ?Medication ?Instructions ?Recorded apixaban 5 mg tablet (Eliquis) 5 mg PO BID 30 days #60 tabs 03/26/20 empagliflozin 10 mg tablet 10 mg PO DAILY #30 tabs 08/10/22 (Jardiance) pantoprazole 40 mg tablet,delayed 40 mg PO DAILY #30 tabs 02/13/23 release (Protonix) bethanechol chloride 50 mg tablet 50 mg PO BID 30 days #60 tabs 09/13/23 metolazone 2.5 mg tablet 2.5 mg PO Q OTHER DAY PRN weight 10/30/23 gain #14 tabs cefpodoxime 200 mg tablet 200 mg PO Q12H #20 tabs 11/13/23 Allergies Allergy/AdvReac Type Severity Reaction Status Date / Time Penicillins AdvReac Intermediate HALLUCINATIONS, Verified 11/22/23 12:03 SWEATS Review of Systems Review of Systems: Constitutional: No fever, fatigue, night sweats, weight changes, +malaise, +chills ENT/Mouth: No ear pain, hearing loss, nasal congestion, sinus pain, rhinorrhea, sore throat Eyes: No eye pain, swelling, redness, vision changes, discharge Cardio: No chest pain, palpitations, EDMONDS, orthopnea, peripheral edema, +chest heaviness Pulm: No SOB, cough, sputum, wheezing, dyspnea, hemoptysis, +SOB GI: No nausea, vomiting, hematemesis, abdominal pain, diarrhea, constipation, hematochezia, melena : No irregular bleeding, dysuria, frequency, urgency, hesitancy, hematuria, flank pain, urinary flow changes, urinary incontinence or retention MSK: No back pain, neck pain, joint pain, myalgias Skin: No lesions, rashes Neuro: No weakness, numbness, paresthesias, LOC, dizziness, headache Psych: No anxiety/panic, depression, SI/HI, AH/VH All other systems reviewed and are negative. [facility] Past Medical History Attestation statement: The following information was validated with the patient. Source: old records reviewed and nursing notes reviewed Medical History Abnormal CT of the abdomen Acute UTI Diabetes Morbid obesity Chronic atrial fibrillation History of ESBL E. 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) Alcohol intake: never Comment: pt refuses Patient Tobacco Use Status: Never used Tobacco Smoked in Last 30 Days: No Use of substances other than those prescribed or required for medical reasons: No Advance Directives: Yes Advance Directives on File: Yes Advance Directives Date on File: 05/16/22 service: Yes Current occupational status: retired Physical Exam Vital Signs: Vital Signs: Last Vital Signs Temp 98.3 F 11/22/23 19:05 Pulse 86 11/22/23 19:05 Resp 20 11/22/23 19:05 BP 129/86 11/22/23 19:05 Pulse Ox 98 11/22/23 15:17 O2 Del Method Room Air 11/22/23 19:05 BMI result Body Mass Index 55.7 Patient is slightly hypertensive to 166/74, vitals otherwise WNL. Afebrile. Const: General: cooperative, healthy appearing, comfortable and no acute distress Orientation/consciousness: patient oriented x3 Limitations: no limitations HEENT: Head: Yes normal to inspection, Yes No palpable skull fracture present, Yes normocephalic and Yes atraumatic Eyes: General: appearance normal, both eyes and all related structures Pupils: Equal, round and reactive pupils present Neck: Neck: Yes normal visual inspection, Yes full ROM, Yes no lymphadenopathy and Yes no JVD Chest: Chest palpation & inspection: normal inspection of the chest and normal palpation of entire chest wall Cardio: Other: Irregularly irregular rate and rhythm Jugular venous distension: no JVD Peripheral pulses: Peripheral pulses 2+ throughout GI: Other: Obese abdomen, soft, nondistended, nontender to palpation, no rebound tenderness or guarding. normoactive bs x4. : General: Yes no CVA tenderness Back/Spine/Pelvis: Back: no CVA tenderness Skin: Other: + see below Neuro: General: patient oriented x3, tone normal and no focal motor deficits Cranial nerves: Yes Equal, round and reactive pupils present Extrem: Other: + chronic lymphedema noted to bilateral lower extremities. no sign of infection. Course Course Course Narrative: 1406 -- CBC without leukocytosis. No anemia. H&H 15.9/49. Chemistry significant mild MARGOTH superimposed on CKD with BUN 70 and creatinine 2.19. Will order 1 L of fluids and re-evaluate. Slightly hypermagnesemic at 2.7 with normal potassium. BNP is slightly elevated to 107 however I have low suspicion for CHF. No exam findings consistent with fluid overload. UA negative for infection however I have advised patient to continue his PO antibiotics to completion. Patient has tested negative for COVID, flu, RSV. Initial roponin 30.3. Given presentation will repeat for delta however ACS is unlikely. EKG showing atrial fibrillation with a rate of 64 beats per minute, QT 524, QTC 540, no acute ischemic changes or ST elevations. CXR pending. VBG pending. > patient received 1 dose of Solu-Medrol. 1850 -- repeat troponin 30.2. No concern for ACS. Patient in chronic afib and rate is controlled. I did speak with electrode turner and finisher Dr. Rojas who reviewed case/ EKG. Given normal CXR and ekg that does not demonstrate ischemic changes, there is low suspicion for ACS. Patient received IV solumedrol and RT updraft with improvement in breathing. He is satting 98-100% on RA without signs of respiratory distress. On repeat BMP, renal function appears to be around patient's baseline after IVF administration. Initial potassium wnl, repeat slightly low at 3. Recommend pt start potassium supplementation with PCP follow up. Also advised patient to follow up with electrode turner and finisher - he currently follows with Dr. Bailey. At this time I feel patient is stable for discharge home which he is agreeable wtih. He tells me he has back problems and no longer wishes to lie in this ED bed. Patient has remained stable throughout ED visit today. Discussed worrisome signs and symptoms and when to return to the ED. All questions answered at this time. Patient is agreeable with disposition and stable for discharge. Medications Administered Discontinued Medications Generic Name Dose Route Start Last Admin Trade Name Freq PRN Reason Stop Dose Admin Albuterol/Ipratropium 3 ml 11/22/23 17:05 11/22/23 17:06 Albuterol/Iprat 2.5/0.5mg 3 Ml Ampul.Neb INHALE 11/22/23 17:06 3 ml ONCE ONE Administration Sodium Chloride 1,000 mls @ 999 mls/hr 11/22/23 14:15 11/22/23 18:25 Ns IV 11/22/23 15:15 Infused .Q1H1M DALTON Infusion Methylprednisolone Sodium Succinate 125 mg 11/22/23 13:21 11/22/23 13:45 Methylprednisolone Sod Succ 125 Mg/2 Ml Vial IVPUSH 11/22/23 13:22 125 mg ONCE ONE Administration Medical Decision Making Medical Decision Making MDM Narrative: 73-year-old male with past medical history significant for uncontrolled diabetes, CKD, lymphedema, recurrent UTIs, hypertension, chronic atrial fibrillation on Eliquis, CHF presents to the ED today via EMS from home for evaluation of shortness of breath, left sided chest heaviness, chills, and general malaise x1 week, worsening x3 days. Slightly hypertensive to 166/74, vitals otherwise WNL. He is satting 100% on room air. No noted respiratory distress. No tripoding. No increased effort of breathing. Lungs with minimal wheezes to left base, otherwise clear to auscultation. No JVD. Irregularly irregular rate and rhythm noted. There is chronic lymphedema noted to bilateral lower extremities. No pitting edema. No cellulitic changes. No open wounds or ulcers. Differential diagnosis includes acute on chronic atrial fibrillation, CHF exacerbation, viral syndrome, pneumonia, pleural effusion. Lower suspicion for ACS, PE. Plan for labs, viral serology, troponin, UA, chest x-ray, breathing treatment, re-evaluation. Differential Diagnosis Differential Diagnoses: The differential diagnosis associated with the presentation includes as above. Admission/Observation Consideration of admission/observation: Escalation of care including admission/observation considered Admission considered on presentation Consult Healthcare Provider Management of the patient was discussed with: Turn Out Worker (After School Program Coordinator Dr. Rojas) Lab Data MDM Lab Attestation statement: I reviewed the patient's lab results. as above. 11/22/23 13:20 11/22/23 15:26 Labs: Lab Results 11/22/23 11/22/23 11/22/23 Range/Units 13:09 13:10 13:20 WBC 10.8 (4.8-10.8) X10*3/uL RBC 5.46 (4.60-5.80) X10*6/uL Hgb 15.9 (14.0-18.0) g/dl Hct 49.0 (42.0-52.0) % MCV 89.7 (80.0-98.0) fL MCH 29.1 (27.0-33.0) pg MCHC 32.4 (31.0-36.0) g/dl RDW 16.4 H (11.0-16.0) % Plt Count 171 (160-400) X10*3/uL MPV 10.1 (9.4-12.4) fL Immature Gran % (Auto) 0.5 H (0.0-0.4) % Neut % (Auto) 82.0 H (45-73) % Lymph % (Auto) 8.9 L (20-40) % [place] % (Auto) 6.4 (2-11) % Eos % (Auto) 1.9 (0-4) % Baso % (Auto) 0.3 (0-2) % Lymph # (Auto) 1.0 L (1.2-4.9) X10*3/uL [place] # (Auto) 0.7 (0.1-1.2) X10*3/uL Eos # (Auto) 0.2 (0.0-0.4) X10*3/uL Baso # (Auto) 0.0 (0.0-0.2) X10*3/uL Abs Immat Gran (auto) 0.05 H (0.00-0.03) X10*3/uL Absolute Neuts (auto) 8.9 H (2.0-8.3) x10*3/uL Absolute Nucleated RBC 0.000 (0.0-0.012) X10*3/uL Nucleated RBC % (auto) 0.0 (0.0-0.2) /100WBC PT 14.7 H D (11.1-13.3) SEC INR 1.2 H (0.9-1.1) VBG pH (7.32-7.43) VBG pCO2 mmHg VBG pO2 mmHg VBG HCO3 (22-26) mmol/L VBG O2 Saturation % VBG Base Excess mmol/L Sodium 141 (135-145) mmol/L Potassium 3.3 (3.3-5.1) mmol/L Chloride 97 (96-108) mmol/L Carbon Dioxide 33 H (22-29) mmol/L Anion Gap 14 (12-20) BUN 70 H (9-16) mg/dL Creatinine 2.19 H (0.5-1.4) mg/dL Estim Creat Clear Calc 48.5 Estimated GFR 30 Random Glucose 128 H (60-115) mg/dL Calcium 9.6 (8.4-10.2) mg/dL Magnesium 2.7 H (1.6-2.6) mg/dL Total Bilirubin 0.7 (0.0-1.0) mg/dL AST 17 (5-37) U/L ALT 13 (0-40) U/L Alkaline Phosphatase 98 (39-117) U/L Troponin I High Sens 30.3 (<3.5-35.0) ng/L B-Natriuretic Peptide 107 H (<100) pg/mL Total Protein 7.7 (6.5-8.0) g/dL Albumin 4.0 (3.5-5.0) g/dL Urine Color Yellow Urine Appearance Clear Urine pH 7.0 (5.0-9.0) Ur Specific Earle 1.015 (1.005-1.025) Urine Protein 100 (2+) H (Neg-Trace) mg/dL Urine Glucose (UA) 500 H (Negative) mg/dL Urine Ketones Negative (Negative) mg/dL Urine Blood Negative (Negative) Urine Nitrite Negative (Negative) Ur Leukocyte Esterase Negative (Negative) Urine RBC 0-2 (0-2) /HPF Urine WBC 0-5 (0-5) /HPF Ur Squamous Epith Cells 0-2 (0-2) /HPF Urine Bacteria None Seen (None Seen) Hyaline Casts 0-2 (0-2) /LPF Influenza Type A (PCR) NEGATIVE (Negative) Influenza Type B (PCR) NEGATIVE (Negative) RSV RNA Qual (PCR) NEGATIVE (Negative) SARS-CoV-2 RNA (RT-PCR) NEGATIVE (Negative) 11/22/23 11/22/23 Range/Units 15:04 15:26 WBC (4.8-10.8) X10*3/uL RBC (4.60-5.80) X10*6/uL Hgb (14.0-18.0) g/dl Hct (42.0-52.0) % MCV (80.0-98.0) fL MCH (27.0-33.0) pg MCHC (31.0-36.0) g/dl RDW (11.0-16.0) % Plt Count (160-400) X10*3/uL MPV (9.4-12.4) fL Immature Gran % (Auto) (0.0-0.4) % Neut % (Auto) (45-73) % Lymph % (Auto) (20-40) % [place] % (Auto) (2-11) % Eos % (Auto) (0-4) % Baso % (Auto) (0-2) % Lymph # (Auto) (1.2-4.9) X10*3/uL [place] # (Auto) (0.1-1.2) X10*3/uL Eos # (Auto) (0.0-0.4) X10*3/uL Baso # (Auto) (0.0-0.2) X10*3/uL Abs Immat Gran (auto) (0.00-0.03) X10*3/uL Absolute Neuts (auto) (2.0-8.3) x10*3/uL Absolute Nucleated RBC (0.0-0.012) X10*3/uL Nucleated RBC % (auto) (0.0-0.2) /100WBC PT (11.1-13.3) SEC INR (0.9-1.1) VBG pH 7.46 H (7.32-7.43) VBG pCO2 47 mmHg VBG pO2 45 mmHg VBG HCO3 34 H (22-26) mmol/L VBG O2 Saturation 85.0 % VBG Base Excess 9.2 mmol/L Sodium 141 (135-145) mmol/L Potassium 3.0 L (3.3-5.1) mmol/L Chloride 100 (96-108) mmol/L Carbon Dioxide 31 H (22-29) mmol/L Anion Gap 13 (12-20) BUN 69 H (9-16) mg/dL Creatinine 2.00 H (0.5-1.4) mg/dL Estim Creat Clear Calc 53.1 Estimated GFR 33 Random Glucose 129 H (60-115) mg/dL Calcium 8.8 D (8.4-10.2) mg/dL Magnesium (1.6-2.6) mg/dL Total Bilirubin (0.0-1.0) mg/dL AST (5-37) U/L ALT (0-40) U/L Alkaline Phosphatase (39-117) U/L Troponin I High Sens 30.2 (<3.5-35.0) ng/L B-Natriuretic Peptide (<100) pg/mL Total Protein (6.5-8.0) g/dL Albumin (3.5-5.0) g/dL Urine Color Urine Appearance Urine pH (5.0-9.0) Ur Specific Earle (1.005-1.025) Urine Protein (Neg-Trace) mg/dL Urine Glucose (UA) (Negative) mg/dL Urine Ketones (Negative) mg/dL Urine Blood (Negative) Urine Nitrite (Negative) Ur Leukocyte Esterase (Negative) Urine RBC (0-2) /HPF Urine WBC (0-5) /HPF Ur Squamous Epith Cells (0-2) /HPF Urine Bacteria (None Seen) Hyaline Casts (0-2) /LPF Influenza Type A (PCR) (Negative) Influenza Type B (PCR) (Negative) RSV RNA Qual (PCR) (Negative) SARS-CoV-2 RNA (RT-PCR) (Negative) Independent Interpretation I performed an independent interpretation of an: EKG and Plain X-Ray Interpretation: EKG showing atrial fibrillation with a rate of 64 beats per minute, QT 524, QTC 540 CXR without infiltrate or consolidation, agree with radiologist's interpretation. Radiology Impression Discussion of test interpretation with radiology: I have reviewed the radiologist's reading. Radiologist Impression: EXAMINATION: XR CHEST CLINICAL INFORMATION: Shortness of breath COMPARISON: 05/01/2023 TECHNIQUE: 2 views of the chest were obtained. FINDINGS: Lungs appear clear. No pleural effusion. Heart and pulmonary vessels are normal. Slightly elevated right hemidiaphragm is unchanged. XR/XR chest 2V IMPRESSION: No active disease. Electronically signed by: Alfred Cordova MD 11/22/2023 05:23 PM EDT RP Independent Historian Clinical information obtained from an independent historian. History obtained from or confirmed by: EMS External Record Review External record reviewed: Inpatient record Prescription Management I considered prescription management with: Pain Medication Chronic Conditions Patient?s care impacted by: Other (Atrial fibrillation, heart failure) Social Determinants Patient?s care significantly limited by Social Determinants of Health including: Other Social Determinant of Health Critical Care Time Critical Care Time Critical Care Time: No Discharge Plan Discharge Clinical Impression: Shortness of breath, Hypokalemia Patient Disposition: Home, Self-Care Instructions: Potassium Content of Foods List (ED), Shortness of Breath (ED) Additional Instructions: Your blood work today is reassuring. Your potassium is slightly low. I recommend potassium supplementation that you can purchase over the counter. Please have your potassium levels rechecked in the next week or two to ensure resolution. Your urine does not show infection however continue taking your antibiotics to completion. Your chest xray is normal. You tested negative for covid, flu, and rsv. Your cardiac enzymes are within normal limits. Please follow up with electrode turner and finisher regarding your chest discomfort. Call them tomorrow to make an appointment this week. Follow up with your PCP next week as scheduled. Return with new or worsening symptoms. Prescriptions: No Action Eliquis 5 mg tablet 5 mg PO BID 30 Days Qty: 60 5RF bethanechol chloride 50 mg tablet 50 mg PO BID 30 Days Qty: 60 2RF methenamine hippurate 1 gram Tablet 1 g PO BID tamsulosin 0.4 mg Capsule 0.4 mg PO BEDTIME insulin aspart U-100 [Novolog U-100 Insulin aspart] 100 unit/mL Solution 14 unit SUBCUT DAILY@1200 allopurinol 300 mg Tablet 300 mg PO DAILY cholecalciferol (vitamin D3) 50 mcg (2,000 unit) Capsule 50 mcg PO DAILY ascorbic acid (vitamin C) [Vitamin C] 1,000 mg tablet 500 mg PO ONCE insulin glargine [Lantus Solostar U-100 Insulin] 100 unit/mL (3 mL) Insulin Pen 36 unit SUBCUT BEDTIME@2100 cyanocobalamin (vitamin B-12) 100 mcg Tablet 200 mcg PO DAILY rosuvastatin 40 mg Tablet 40 mg PO BEDTIME ketoconazole 2 % Cream 1 appl TOPICAL BID PRN (Reason: Skin Irritation) torsemide 20 mg tablet 20 mg PO DAILY@1200 PRN amlodipine 5 mg Tablet 5 mg PO DAILY@1200 Jardiance 10 mg Tablet 10 mg PO DAILY Qty: 30 0RF pantoprazole [Protonix] 40 mg tablet,delayed release (DR/EC) 40 mg PO DAILY Qty: 30 0RF cefpodoxime 200 mg tablet 200 mg PO Q12H Qty: 20 0RF Rx Instructions: must administer with a meal/food sulfamethoxazole-trimethoprim 800-160 mg tablet See Rx Instructions PO BID Rx Instructions: orally 2 times a day; Probiotic 3 billion cell capsule 3,000 mmu cells PO DAILY Rx Instructions: administer with a meal torsemide 20 mg tablet 60 mg PO DAILY Rx Instructions: 2 am 1 noon metolazone 2.5 mg tablet 2.5 mg PO Q OTHER DAY PRN (Reason: weight gain) Qty: 14 5RF Referrals: [facility] [Provider Group] Guzman Edouard [Primary Care Provider] - Interventions: ED Discharge Assessment Last Done: 11/22/23 19:05 Discharge Date/Time: 11/22/23 19:14 Print Language: Kyrgyz
--- NOTE | 2023-11-22 12:07 | ECG_ITS ---
Test Reason : SOB/HEAVY CHEST Blood Pressure : / mmHG Vent. Rate : 064 BPM Atrial Rate : 000 BPM P-R Int : 000 ms QRS Dur : 232 ms QT Int : 524 ms P-R-T Axes : 000 -82 059 degrees QTc Int : 540 ms Atrial fibrillation Left axis deviation Right bundle branch block Septal infarct , age undetermined Abnormal ECG When compared with ECG of 01-MAY-2023 11:15, QRS duration has increased Referred By: Mikayla Cespedes Electronically Signed By:TREVIN CAMACHO
[2023-11-22 13:27] LABS: MANUAL DIFF FLAG NO
[2023-11-22 13:30] LABS: Appearance Urine Clear; Color Urine Yellow; Glucose Urine UA 500 mg/dL (Negative); Leukocyte Esterase Urine Negative (Negative); Nitrite Urine Negative (Negative); Specific Gravity - Urine 1.015 (1.005-1.025); UMIC TRIGGER UACC YES; Urine Blood Negative (Negative); Urine Ketones Negative (Negative); Urine Protein 100 (2+) mg/dL (Neg-Trace)
[2023-11-22 13:32] LABS: Bacteria Urine None Seen (None Seen); Hyaline Casts Urine 0-2 /LPF (0-2); RBC Urine 0-2 /HPF (0-2); Squamous Epithelial Cell Urine 0-2 /HPF (0-2); WBC Urine 0-5 /HPF (0-5)
[2023-11-22 13:33] LABS: Basophils Percent Auto 0.3 % (0-2); Eosinophils Absolute Auto 0.2 X10*3/uL (0.0-0.4); Eosinophils Percent Auto 1.9 % (0-4); Hemoglobin 15.9 g/dl (14.0-18.0); Imm Gran Abs Auto 0.05 X10*3/uL (0.00-0.03); Imm Gran Pct Auto 0.5 % (0.0-0.4); Lymphocytes Percent Auto 8.9 % (20-40); Mean Corpuscular HGB Conc 32.4 g/dl (31.0-36.0); Mean Corpuscular Hemoglobin 29.1 pg (27.0-33.0); Mean Corpuscular Volume 89.7 fL (80.0-98.0); Mean Platelet Volume 10.1 fL (9.4-12.4); Monocytes Absolute Auto 0.7 X10*3/uL (0.1-1.2); Monocytes Percent Auto 6.4 % (2-11); Neutrophils Absolute Auto 8.9 x10*3/uL (2.0-8.3); Platelet Count 171 X10*3/uL (160-400); Red Blood Count 5.46 X10*6/uL (4.60-5.80); Red Cell Distribution Width 16.4 % (11.0-16.0); White Blood Count 10.8 X10*3/uL (4.8-10.8)
[2023-11-22 13:37] LABS: INTERNATIONAL NORM RATIO 1.2 (0.9-1.1); Prothrombin Time 14.7 SEC (11.1-13.3)
[2023-11-22] MEDS: methylPREDNISolone Sod Succ 125 MG/2 ML VIAL IVPUSH (13:45)
[2023-11-22 13:46] LABS: Alanine Aminotransferase 13 U/L (0-40); Alkaline Phosphatase 98 U/L (39-117); Anion Gap 14 (12-20); Aspartate Amino Transferase 17 U/L (5-37); Bilirubin Total 0.7 mg/dL (0.0-1.0); Blood Urea Nitrogen 70 mg/dL (9-16); Calcium 9.6 mg/dL (8.4-10.2); Carbon Dioxide 33 mmol/L (22-29); Chloride 97 mmol/L (96-108); Creatinine Clr Calc Pharmacy 48.5; Estimated Glomerular Filt Rate 30; Glucose Random 128 mg/dL (60-115); Magnesium 2.7 mg/dL (1.6-2.6); Potassium 3.3 mmol/L (3.3-5.1); Sodium 141 mmol/L (135-145); Total Protein 7.7 g/dL (6.5-8.0)
[2023-11-22 13:50] LABS: B Type Natriuretic Peptide 107 pg/mL (<100); Troponin-I High Sensitivity 30.3 ng/L (<3.5-35.0)
[2023-11-22 14:07] LABS: Influenza A PCR NEGATIVE (Negative); Influenza B PCR NEGATIVE (Negative); Resp Syncy Virus RNA Qual PCR NEGATIVE (Negative); SARS COV2 PCR INHOUSE NEGATIVE (Negative)
[2023-11-22] MEDS: 0.9 % Sodium Chloride 1,000 ML 999 ML IV (14:20)
[2023-11-22 15:09] LABS: VBG Base Excess 9.2 mmol/L; VBG HCO3 34 mmol/L (22-26); VBG pCO2 47 mmHg; VBG pH 7.46 (7.32-7.43); VBG pO2 45 mmHg
[2023-11-22 15:09] LABS: Venous Blood Gas Refer to POC result
[2023-11-22 15:17] VITALS: BP 139/50; PULSE 70; RESP 18; TEMP 36.7; O2SAT 98
[2023-11-22 16:01] LABS: Anion Gap 13 (12-20); Blood Urea Nitrogen 69 mg/dL (9-16); Calcium 8.8 mg/dL (8.4-10.2); Carbon Dioxide 31 mmol/L (22-29); Chloride 100 mmol/L (96-108); Creatinine Clr Calc Pharmacy 53.1; Estimated Glomerular Filt Rate 33; Glucose Random 129 mg/dL (60-115); Sodium 141 mmol/L (135-145)
[2023-11-22 16:59] LABS: Troponin-I High Sensitivity 30.2 ng/L (<3.5-35.0)
[2023-11-22] MEDS: Albuterol/Iprat 2.5/0.5MG 3 ML AMPUL.NEB INHALE (17:06)
[2023-11-22 18:27] VITALS: BP 129/86; PULSE 86; RESP 20; TEMP 36.8
[2023-11-22 19:05] VITALS: BP 129/86; PULSE 86; RESP 20; TEMP 36.8
== END 2023-11-22 19:14 | disposition home or self-care (01) ==
PROVIDERS: Physician Assistant Medical; Emergency Provider Emergency Medicine; PCP Internal Medicine
DX: R06.02 Shortness of breath (principal); E87.6 Hypokalemia; I89.0 Lymphedema, not elsewhere classified; I48.20 Chronic atrial fibrillation, unspecified; I13.0 Hypertensive heart and chronic kidney disease with heart failure and stage 1 through stage 4 chronic kidney disease, or unspecified chronic kidney disease; I50.9 Heart failure, unspecified; N18.9 Chronic kidney disease, unspecified; E11.22 Type 2 diabetes mellitus with diabetic chronic kidney disease; Z79.01 Long term (current) use of anticoagulants; R53.81 Other malaise; Z03.818 Encounter for observation for suspected exposure to other biological agents ruled out
CPT/HCPCS: 0241U; 36415; 71046; 80048; 80053; 81001; 82803; 83735; 83880; 84484; 85025; 85610; 93005; 96361; 96374; 99285; J2919

== ENCOUNTER 2023-11-29 12:48 | Outpatient (AMB) | payer OTHER, SELFPAY ==
--- NOTE | 2023-11-29 13:03 | A.OFFVIS_ITS ---
Vital Signs 11/29/23 13:10 Height 5 ft 10 in Weight 362 lb 14.094 oz BMI 52.1 BP 130/68 Blood Pressure Location Lt brachial Position Sitting Pulse 70 Pulse Source Pulse Oximeter Intake Visit Reasons: d/c from [facility] possible heart failure Allergies Penicillins Adverse Reaction (Intermediate, Verified 11/22/23 12:03) HALLUCINATIONS, SWEATS HPI Comments Details: 73-year-old male presents today for a follow up visit after being in [facility]. He presented at [facility] on 11/24/2023 for shortness of breath and weakness. His pro BNP at [facility] was 3,209. He was seen at [facility] Emergency Department 11/22/2023 which his BNP was 107. He reports he does his weight daily with [employer]. He reports some shortness of breath. He has been avoiding salt and sugar. He reports lots of belching after eating otherwise doing okay. [facility] Medical History Abnormal CT of the abdomen Acute UTI Diabetes Morbid obesity Chronic atrial fibrillation History of ESBL E. 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 Hypertension Kidney disease Social History Household Members: Spouse Housing: House Do you presently have visiting nurse or other home services: Yes ([employer] CAN COLLECT[employer] 3x/week) Alcohol intake: never Comment: pt refuses Patient Tobacco Use Status: Never used Tobacco Advance Directives Date on File: 05/16/22 service: Yes Current occupational status: retired Review of Systems Const Denies weakness ENT Denies dizziness Card Denies chest pain, Denies chest pain with activity, Denies syncope, Denies rapid heart rate, Denies pedal edema, Denies edema, Denies leg edema, Denies lightheadedness, Denies palpitations, Denies dyspnea, Denies dyspnea on exertion and Denies orthopnea Resp Denies cough, Denies dyspnea and Denies dyspnea on exertion GI Denies hematochezia and Denies change in stool character Musc Denies abnormal gait, Denies muscle cramps, Denies muscle weakness, Denies numbness, Denies radiating pain into limb and Denies tingling Neuro Denies abnormal gait, Denies dizziness, Denies syncope, Denies numbness, Denies tingling and Denies weakness Endo Denies palpitations Physical Exam Vital Signs: Last Vital Signs Pulse 70 11/29/23 13:10 BP 130/68 11/29/23 13:10 BMI result Body Mass Index 52.1 Const General: healthy appearing and no acute distress Orientation/consciousness: patient oriented x3 HEENT Head: Yes normal to inspection Eyes General: appearance normal, both eyes and all related structures Neck Neck: Yes normal visual inspection Chest Chest palpation & inspection: normal inspection of the chest Resp Effort & Inspection: normal respiratory effort Auscultation: clear to auscultation bilaterally Cardio Jugular venous distension: no JVD Palpation: normal PMI Rate: regular rate Rhythm: regular rhythm Heart sounds: S1 normal heart sound present, S2 normal heart sound present, no click, no gallops, no murmurs and no rubs GI Inspection: Yes normal to inspection Palpation (GI): Soft to palpation Skin General skin exam: no rashes or lesions noted Neuro General: patient oriented x3 Extrem General: Yes normal to inspection Psych Appearance: grossly normal Assessment & Plan Assessment & Plan (1) Chronic heart failure with preserved ejection fraction: Code(s): I50.32 - Chronic diastolic (congestive) heart failure Category: Medical (2) Hypertension: Code(s): I10 - Essential (primary) hypertension Category: Medical (3) CKD (chronic kidney disease) stage 3, GFR 30-59 ml/min: Code(s): N18.30 - Chronic kidney disease, stage 3 unspecified Category: Medical Plan Dry weight of 360. On our scale today he is 362. We will have a repeat blood work. Daily weight monitoring encouraged. Weight gain of 3 lb overnight or 5 lb a week to call us. He has daily diuretics and p.r.n. diuretics to use. Continue as current. We will repeat lab work. Avoidance of salt discussed in detail. TT E done on 11/25/2023 showed EF of 50-55%. On 11/28/2023 BUN was 67, creatinine 2.10. We will recheck with repeat lab work. Orders: Orders B Type Natriuretic Peptide 11/29/23 I50.32 - Chronic diastolic (congestive) heart failure Basic Metabolic Panel 11/29/23 I50.32 - Chronic diastolic (congestive) heart failure Coding Level of Care Code Est Pt Level 4 (50135) Diagnoses Chronic heart failure with preserved ejection fraction I50.32 Hypertension I10 CKD (chronic kidney disease) stage 3, GFR 30-59 ml/min N18.30
[2023-11-29 13:10] VITALS: BP 130/68; PULSE 70; BMI 52.1
== END 2023-11-29 13:43 | disposition home or self-care (01) ==
PROVIDERS: PCP Internal Medicine; Visit Provider Nurse Practitioner
DX: I50.32 Chronic diastolic (congestive) heart failure (principal); I10 Essential (primary) hypertension; N18.30 Chronic kidney disease, stage 3 unspecified
CPT/HCPCS: 99214

== ENCOUNTER 2023-11-29 12:48 | Outpatient (REF) | payer OTHER, SELFPAY ==
[2023-11-29 15:25] LABS: B Type Natriuretic Peptide 66 pg/mL (<100)
[2023-11-29 15:55] LABS: Anion Gap 17 (12-20); Blood Urea Nitrogen 83 mg/dL (9-16); Calcium 9.6 mg/dL (8.4-10.2); Carbon Dioxide 33 mmol/L (22-29); Chloride 93 mmol/L (96-108); Estimated Glomerular Filt Rate 23; Glucose Random 95 mg/dL (60-115); Potassium 3.6 mmol/L (3.3-5.1); Sodium 139 mmol/L (135-145)
== END 2023-11-29 12:49 | disposition home or self-care (01) ==
LOC: HO.LAB 12:48
PROVIDERS: PCP Internal Medicine; Visit Provider Nurse Practitioner
DX: I13.0 Hypertensive heart and chronic kidney disease with heart failure and stage 1 through stage 4 chronic kidney disease, or unspecified chronic kidney disease (principal); I50.32 Chronic diastolic (congestive) heart failure; N18.30 Chronic kidney disease, stage 3 unspecified
CPT/HCPCS: 36415; 80048; 83880; 99212

== ENCOUNTER 2023-12-19 09:08 | Outpatient (REF) | payer OTHER, SELFPAY ==
[2023-12-19 09:29] LABS: MANUAL DIFF FLAG NO
[2023-12-19 09:51] LABS: Basophils Percent Auto 0.4 % (0-2); Eosinophils Absolute Auto 0.1 X10*3/uL (0.0-0.4); Eosinophils Percent Auto 1.6 % (0-4); Hematocrit 43.7 % (42.0-52.0); Hemoglobin 14.2 g/dl (14.0-18.0); Imm Gran Abs Auto 0.06 X10*3/uL (0.00-0.03); Imm Gran Pct Auto 0.7 % (0.0-0.4); Lymphocytes Absolute Auto 0.8 X10*3/uL (1.2-4.9); Lymphocytes Percent Auto 10.1 % (20-40); Mean Corpuscular HGB Conc 32.5 g/dl (31.0-36.0); Mean Corpuscular Hemoglobin 29.8 pg (27.0-33.0); Mean Corpuscular Volume 91.8 fL (80.0-98.0); Mean Platelet Volume 11.2 fL (9.4-12.4); Monocytes Absolute Auto 0.6 X10*3/uL (0.1-1.2); Monocytes Percent Auto 6.8 % (2-11); Neutrophils Absolute Auto 6.6 x10*3/uL (2.0-8.3); Neutrophils Percent Auto 80.4 % (45-73); Platelet Count 157 X10*3/uL (160-400); Red Blood Count 4.76 X10*6/uL (4.60-5.80); Red Cell Distribution Width 15.7 % (11.0-16.0); White Blood Count 8.3 X10*3/uL (4.8-10.8)
[2023-12-19 10:13] LABS: B Type Natriuretic Peptide 121 pg/mL (<100)
[2023-12-19 10:24] LABS: Anion Gap 14 (12-20); Blood Urea Nitrogen 66 mg/dL (9-16); Calcium 8.8 mg/dL (8.4-10.2); Carbon Dioxide 31 mmol/L (22-29); Chloride 99 mmol/L (96-108); Estimated Glomerular Filt Rate 32; Glucose Random 175 mg/dL (60-115); Potassium 3.7 mmol/L (3.3-5.1); Sodium 140 mmol/L (135-145)
[2023-12-19 10:33] LABS: Alanine Aminotransferase 15 U/L (0-40); Albumin Level 3.7 g/dL (3.5-5.0); Alkaline Phosphatase 78 U/L (39-117); Aspartate Amino Transferase 16 U/L (5-37); Bilirubin Direct 0.3 mg/dL (0.0-0.5); Bilirubin Total 0.7 mg/dL (0.0-1.0); Lipase 26 U/L (8-78); Total Protein 6.7 g/dL (6.5-8.0)
[2023-12-21 10:34] LABS: Carbohydrate Antigen 19-9 41 U/mL (<34)
[2023-12-27 17:59] LABS: FIB-ALT 12 U/L (9-46); FIB-Alpha-2-Macroglobulin 158 mg/dL (106-279); FIB-Apolipoprotein A1 134 mg/dL (94-176); FIB-GGT 13 U/L (3-70); FIB-Haptoglobin 251 mg/dL (43-212); FIB-Total Bilirubin 0.5 mg/dL (0.2-1.2); Liver Fibrosis Score 0.16; Liver Fibrosis Stage F0; Nec Inflam Act Grade A0; Nec Inflam Act Score 0.03
== END 2023-12-19 09:09 | disposition home or self-care (01) ==
LOC: HO.LAB 09:08
PROVIDERS: Nurse Practitioner; Absent Provider Internal Medicine Cardiovascular Disease; PCP Internal Medicine; Visit Provider Internal Medicine Gastroenterology
DX: N18.30 Chronic kidney disease, stage 3 unspecified (principal); I50.30 Unspecified diastolic (congestive) heart failure; R93.2 Abnormal findings on diagnostic imaging of liver and biliary tract
CPT/HCPCS: 36415; 80048; 80076; 81596; 83690; 83880; 85025; 86301

== ENCOUNTER 2023-12-21 09:42 | Outpatient (REF) | payer OTHER, SELFPAY ==
[2023-12-21 11:18] LABS: Appearance Urine Turbid; Color Urine Yellow; Glucose Urine UA Negative (Negative); Leukocyte Esterase Urine Large (3+) (Negative); Nitrite Urine Negative (Negative); Specific Gravity - Urine 1.015 (1.005-1.025); UMIC TRIGGER UA YES; Urine Blood Trace (Negative); Urine Ketones Negative (Negative); Urine Protein 100 (2+) mg/dL (Neg-Trace)
[2023-12-21 11:24] LABS: Bacteria Urine 4+ (None Seen); Hyaline Casts Urine 0-2 /LPF (0-2); RBC Urine 0-2 /HPF (0-2); Squamous Epithelial Cell Urine 0-2 /HPF (0-2); WBC Urine >50 /HPF (0-5)
== END 2023-12-21 09:43 | disposition home or self-care (01) ==
LOC: HO.LAB 09:42
PROVIDERS: PCP Internal Medicine; Visit Provider Nurse Practitioner Family
DX: N40.1 Benign prostatic hyperplasia with lower urinary tract symptoms (principal); R33.9 Retention of urine, unspecified; N39.0 Urinary tract infection, site not specified
CPT/HCPCS: 81001; 87086; 87088; 87186

== ENCOUNTER 2023-12-25 09:59 | Outpatient (REF) | payer OTHER, SELFPAY ==
[2023-12-25 11:20] LABS: B Type Natriuretic Peptide 118 pg/mL (<100)
[2023-12-25 11:22] LABS: Anion Gap 15 (12-20); Blood Urea Nitrogen 53 mg/dL (9-16); Calcium 8.4 mg/dL (8.4-10.2); Carbon Dioxide 29 mmol/L (22-29); Chloride 102 mmol/L (96-108); Estimated Glomerular Filt Rate 34; Glucose Random 107 mg/dL (60-115); Sodium 143 mmol/L (135-145)
== END 2023-12-25 10:00 | disposition home or self-care (01) ==
LOC: HO.LAB 09:59
PROVIDERS: PCP Internal Medicine; Visit Provider Internal Medicine Cardiovascular Disease
DX: N18.30 Chronic kidney disease, stage 3 unspecified (principal); I50.32 Chronic diastolic (congestive) heart failure
CPT/HCPCS: 36415; 80048; 83880

== ENCOUNTER 2024-01-19 09:39 | Outpatient (REF) | payer OTHER, SELFPAY ==
[2024-01-19 11:52] LABS: Anion Gap 15 (12-20); Blood Urea Nitrogen 58 mg/dL (9-16); Carbon Dioxide 31 mmol/L (22-29); Chloride 97 mmol/L (96-108); Estimated Glomerular Filt Rate 31; Glucose Random 164 mg/dL (60-115); Potassium 3.3 mmol/L (3.3-5.1); Sodium 140 mmol/L (135-145)
[2024-01-19 12:01] LABS: B Type Natriuretic Peptide 81 pg/mL (<100)
== END 2024-01-19 09:40 | disposition home or self-care (01) ==
LOC: HO.LAB 09:39
PROVIDERS: PCP Internal Medicine; Visit Provider Internal Medicine Cardiovascular Disease
DX: I50.32 Chronic diastolic (congestive) heart failure (principal); E87.6 Hypokalemia; I50.812 Chronic right heart failure; I50.30 Unspecified diastolic (congestive) heart failure; I50.9 Heart failure, unspecified
CPT/HCPCS: 36415; 80048; 83880

== ENCOUNTER 2024-02-13 09:22 | Outpatient (AMB) | payer OTHER, SELFPAY ==
--- NOTE | 2024-02-13 09:30 | A.OFFVIS_ITS ---
Intake Visit Reasons: 3m/PVR Intake Note: Patient presents today for a follow-up on recurrent UTI Urology Medications: Tamsulosin, Bethanechol, Methenamine, vitamin c Allergies to Antibiotic: Penicillins Blood Thinner: Eliquis Post Void Residual: 16ml's Java Websphere Developer Required: No Accompanied by: Sybil REGIONAL WILDLIFE AGENT Allergies Penicillins Adverse Reaction (Intermediate, Verified 02/13/24 10:12) HALLUCINATIONS, SWEATS Medication List - Last Reconciled 02/13/24 by Beba Campbell [facility] allopurinol 300 mg PO DAILY amlodipine 10 mg PO DAILY@1200 apixaban (Eliquis) 5 mg PO BID 30 days ascorbic acid (vitamin C) (Vitamin C) 500 mg PO ONCE bethanechol chloride 50 mg PO BID 30 days bethanechol chloride 50 mg PO BID 10 days cholecalciferol (vitamin D3) 50 mcg PO DAILY cyanocobalamin (vitamin B-12) 200 mcg PO DAILY insulin aspart U-100 (Novolog U-100 Insulin aspart) 14 units subcut DAILY@1200 insulin glargine (Lantus Solostar U-100 Insulin) 36 units subcut BEDTIME@2100 ketoconazole 2% 1 appl topical BID PRN lactobacillus combination no.4 (Probiotic) 3,000 mmu cells PO DAILY methenamine hippurate 1 g PO BID metolazone 2.5 mg PO Q OTHER DAY PRN pantoprazole (Protonix) 40 mg PO DAILY potassium chloride ER 20 mEq PO BID 90 days rosuvastatin 40 mg PO BEDTIME semaglutide (Ozempic) 0.25 mg subcut QWEEK tamsulosin 0.4 mg PO BEDTIME torsemide 20 mg PO DAILY@1200 PRN torsemide 60 mg PO DAILY HPI Comments Details: Geovanni is a very pleasant 73-year-old male patient of Dr. Edouard who is accompanied by his REGIONAL WILDLIFE AGENT worker Gavi at todays office visit. He has a past medical history of recurrent urinary tract infections, diabetes, morbid obesity, chronic AFib on anticoagulation, C diff carrier, varicose vein, hypertension, and kidney disease. He presents to the office today for follow-up of his recurrent urinary tract infections, lower urinary tract symptoms, incomplete bladder emptying, and renal cyst. Of note, during last office visit approximately 3 months ago patient underwent an office cystoscopy with Dr. 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 In discussion with the patient today he reports no bothersome urinary issues or concerns since his last office visit here 3 months ago. He reports compliance with Flomax, methenamine, vitamin-C, and bethanechol as prescribed. Unable to obtain urine for urinalysis however PVR 16 mL. Previous workup has included a retroperitoneal ultrasound 07/25 noting bilateral kidneys with no calculi or hydronephrosis. Bilateral benign simple renal cysts are noted that require no imaging follow-up per radiology report. The bladder is distended with a pre void bladder volume is approximately 425 mL. Postvoid bladder volume is 400 mL. The prostate is enlarged measuring approximately 36 mL. He denies urinary urgency, incontinence, hematuria, dysuria, changes to urinary stream, flank pain, fever, and or chills. He does report nocturia however does not find this bothersome and feels he is self managing. He is happy with his current voiding parameters on Flomax and bethanechol as prescribed . Discussed at length potential causes for recurrent urinary tract infections. In review of patient's chart it appears PSA 03/25 0.3. He otherwise offers no other issues or concerns at this time. [facility] Medical History Abnormal CT of the abdomen Acute UTI Diabetes Morbid obesity Chronic atrial fibrillation History of ESBL E. 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 Hypertension Kidney disease Social History Household Members: Spouse Housing: House Do you presently have visiting nurse or other home services: Yes (REGIONAL WILDLIFE AGENT 3x/week) Alcohol intake: never Comment: pt refuses Patient Tobacco Use Status: Never used Tobacco Advance Directives Date on File: 05/16/22 service: Yes Current occupational status: retired Review of Systems Const Reports as per [facility] Eyes Reports no additional complaints ENT Reports no additional complaints Card Reports as per [facility] Resp Reports no additional complaints GI Reports as per [facility] Reports as per [facility] Musc Reports as per [facility] Neuro Reports as per [facility] Psych Reports as per [facility] Endo Reports as per [facility] Physical Exam Const General: cooperative, comfortable, no acute distress, well developed, alert and awake Orientation/consciousness: patient oriented x3 Limitations: ambulation with walker and crutches HEENT Head: Yes normal to inspection, Yes normocephalic and Yes atraumatic Ears: hearing grossly normal bilaterally Eyes General: appearance normal, both eyes and all related structures Neck Neck: Yes normal visual inspection and Yes trachea midline Chest Chest palpation & inspection: normal inspection of the chest Resp Effort & Inspection: normal respiratory effort and able to speak in complete sentences Cardio Rate: regular rate GI Inspection: Yes normal to inspection General: Yes no CVA tenderness Back/Spine/Pelvis Back: no CVA tenderness Skin General skin exam: no rashes or lesions noted Neuro General: patient oriented x3 Extrem General: Yes normal to inspection Psych Appearance: grossly normal and well kempt Mental Status: mental status grossly normal Speech and movement: Normal speech and movement present and Clear speech present Affect: normal affect Attitude: cooperative Thought process: Normal thought process present Thought content: Normal thought content present Insight: Fair insight present (Psych) Judgement: Fair judgement present (Psych) Office Procedures Post Void Residual Post Residual Void Post Void Residual (PVR): 16 [id number] Void Residual by ultrasound Assessment & Plan Assessment & Plan (1) UTI (urinary tract infection): Code(s): N39.0 - Urinary tract infection, site not specified (2) Microscopic hematuria: Code(s): R31.29 - Other microscopic hematuria (3) Recurrent urinary tract infection: Code(s): N39.0 - Urinary tract infection, site not specified Category: Medical (4) Complicated urinary tract infection: Code(s): N39.0 - Urinary tract infection, site not specified Category: Medical Plan Unable to obtain urine for urinalysis however PVR 16 mL. He currently denies any bothersome urinary issues or concerns. He denies any UTI like symptoms. Discussed at length potential causes for recurrent urinary tract infections patient is experiencing. Continue methenamine, vitamin-C, Flomax, and bethanechol as prescribed Discussed potential for near future microgen for further assessment and evaluation if symptoms arise. Discussed importance of managing constipation in relation to recurrent UTI's. Discussed affects of diabetes on the bladder, urinary symptoms, and overall health and well being. Follow-up in 6months with PSA and PVR; or sooner with any issues, concerns, and or questions. Orders: Orders AMB Urinalysis Automated Today Z13.9 - Encounter for screening, unspecified Prostate Specific Antigen Today N40.1 - Benign prostatic hyperplasia with lower urinary tract symptoms, R33.9 - Retention of urine, unspecified AMB Post Void Residual by ultrasound Today N40.1 - Benign prostatic hyperplasia with lower urinary tract symptoms, R33.9 - Retention of urine, unspecified Medications: New bethanechol chloride 50 mg PO BID 10 days 20 tabs 0RF N39.0 - Urinary tract infection, site not specified Patient Instructions: The patient had an opportunity to ask questions regarding the treatment plan. All questions were answered. Physical exam, labs, and imaging were discussed and reviewed in detail. As well as risks, benefits, and discussion of treatment choices. No major barriers to understanding were identified. The patient expressed understanding and agreement with the above treatment plan. The patient was made aware they should contact our office by phone for worsening of their current condition, the appearance of new symptoms, or with any questions or concerns. Compliance is encouraged with any medications and follow up testing that is ordered. It is a privilege to be allowed the opportunity to participate in? your urological care.? Again, if you have any questions or concerns If you have any questions or concerns please do not hesitate to contact me. The office is [phone]. This note is constructed using voice recognition software. While every effort has been made to ensure accuracy profile shaper operator errors may have been included. Yours sincerely, MALI Leiva Coding Level of Care Code Est Pt Level 3 (86603) Complex EM visit Add On G2211 Diagnoses UTI (urinary tract infection) N39.0 Microscopic hematuria R31.29 Recurrent urinary tract infection N39.0 Complicated urinary tract infection N39.0 CPT Codes Post Residual Void - PVR CPT Code: 89032-Riem Void Residual by ultrasound ([id number])
== END 2024-02-13 10:11 | disposition home or self-care (01) ==
PROVIDERS: PCP Internal Medicine; Visit Provider Nurse Practitioner Family
DX: N39.0 Urinary tract infection, site not specified (principal); R31.29 Other microscopic hematuria
CPT/HCPCS: 99213; G2211

== ENCOUNTER → 2024-02-13 09:22 | Outpatient (BNVA) | payer OTHER, SELFPAY | PROVIDERS: PCP Internal Medicine; Visit Provider Nurse Practitioner Family | DX: N39.0 Urinary tract infection, site not specified (principal); R31.29 Other microscopic hematuria | CPT/HCPCS: 51798; 99212 ==

== ENCOUNTER 2024-02-23 17:33 | Emergency (ER) | payer OTHER, SELFPAY ==
[2024-02-23 17:58] VITALS: BP 129/44; PULSE 64; RESP 16; TEMP 36.6; O2SAT 97; BMI 53.7
--- NOTE | 2024-02-23 17:58 | ED.GENADULT ---
HPI - General Adult General Chief complaint: Urogenital-Male Stated complaint: Not feeling well Time Seen by Provider: 02/23/24 18:10 Source: patient Mode of arrival: ambulatory Limitations: no limitations History of Present Illness ED Provider: ophelia SUGGS narrative: Patient with history of diabetes with recurrent UTI obese comes here with urinary symptoms for last few days feeling weak and tired with strong odor urine no fever no chills no nausea no vomiting does have low back pain patient had UA done as outpatient at [facility] which showed E coli sensitive to cefuroxime no nausea no vomiting no significant abdominal pain Related Data Home Medications ?Medication ?Instructions ?Recorded ?Confirmed allopurinol 300 mg tablet 300 mg PO DAILY 11/03/20 10/30/23 cholecalciferol (vitamin D3) 50 50 mcg PO DAILY 11/03/20 10/30/23 mcg (2,000 unit) capsule insulin aspart U-100 100 unit/mL 14 unit subcut DAILY@1200 11/03/20 10/30/23 subcutaneous solution (Novolog U-100 Insulin aspart) methenamine hippurate 1 gram tablet 1 g PO BID 11/03/20 10/30/23 tamsulosin 0.4 mg capsule 0.4 mg PO BEDTIME 11/03/20 10/30/23 cyanocobalamin (vitamin B-12) 100 200 mcg PO DAILY 05/02/22 10/30/23 mcg tablet insulin glargine 100 unit/mL (3 36 unit subcut BEDTIME@2100 05/02/22 10/30/23 mL) subcutaneous pen (Lantus Solostar U-100 Insulin) rosuvastatin 40 mg tablet 40 mg PO BEDTIME 05/02/22 10/30/23 ketoconazole 2 % topical cream 1 appl topical BID PRN Skin 04/01/23 10/30/23 Irritation lactobacillus combination no.4 3 3,000 mmu cells PO DAILY 04/27/23 10/30/23 billion cell capsule (Probiotic) torsemide 20 mg tablet 20 mg PO DAILY@1200 PRN 04/27/23 10/30/23 torsemide 20 mg tablet 60 mg PO DAILY 10/30/23 10/30/23 ascorbic acid (vitamin C) 1,000 mg 500 mg PO ONCE 11/13/23 tablet (Vitamin C) amlodipine 5 mg tablet 10 mg PO DAILY@1200 08/28/24 semaglutide 0.25 mg or 0.5 mg (2 0.25 mg subcut QWEEK 11/29/23 mg/3 mL) subcutaneous pen injector (Ozempic) Previous Rx's ?Medication ?Instructions ?Recorded apixaban 5 mg tablet (Eliquis) 5 mg PO BID 30 days #60 tabs 03/26/20 pantoprazole 40 mg tablet,delayed 40 mg PO DAILY #30 tabs 02/13/23 release (Protonix) metolazone 2.5 mg tablet 2.5 mg PO Q OTHER DAY PRN weight 10/30/23 gain #14 tabs potassium chloride 20 mEq 20 meq PO BID 90 days #180 tabs 01/19/24 tablet,extended release bethanechol chloride 50 mg tablet 50 mg PO BID 10 days #20 tabs 02/13/24 bethanechol chloride 50 mg tablet 50 mg PO BID 30 days #60 tabs 02/13/24 cefuroxime axetil 500 mg tablet 500 mg PO BID 10 days #20 tabs 02/23/24 Allergies Allergy/AdvReac Type Severity Reaction Status Date / Time Penicillins AdvReac Intermediate HALLUCINATIONS, Verified 02/23/24 17:58 SWEATS Review of Systems Review of Systems: Yes all other systems are reviewed and are negative [facility] Past Medical History Medical History Abnormal CT of the abdomen Acute UTI Diabetes Morbid obesity Chronic atrial fibrillation History of ESBL E. 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 SALES LEADER 3x/week) Alcohol intake: never Comment: pt refuses Patient Tobacco Use Status: Never used Tobacco Smoked in Last 30 Days: No Use of substances other than those prescribed or required for medical reasons: No Advance Directives: Yes Advance Directives on File: Yes Advance Directives Date on File: 05/16/22 Do you have a plan to hurt others: No Plan service: Yes Current occupational status: retired Physical Exam ED Vital Signs: Vital Signs - 24 hr 02/23/24 17:58 02/23/24 18:20 Temperature 97.9 F 98.0 F Pulse Rate 64 77 Respiratory Rate 16 16 Blood Pressure 129/44 L 136/57 L Pulse Oximetry 97 94 Oxygen Delivery Method Room Air Room Air BMI result Body Mass Index 53.7 Appearance: Alert. Oriented X3. No acute distress. Eyes: PERRLA, No Nystagmus ENT: Pharynx normal. Oral Mucosa moist Neck: Normal inspection. Neck supple. CVS: Normal heart rate and rhythm. Pulses normal. Respiratory: No respiratory distress. Equal air entry bilateral, no wheezing/rales/rhonchi Abdomen: Soft and nontender. Bowel sounds are present, no mass palpable, no CVA tenderness Skin: Skin warm and dry. Normal skin color. Normal skin turgor. Extremities: No lower extremity edema. No calf tenderness Neuro: Oriented X 3. No motor deficit. No sensory deficit.No cerebellar signs , cranial nerves II-XII intact Course Course Course Narrative: RME, this is a rapid medical exam performed by Carlo Prakash please refer to primary provider for complete H&P- 73-year-old male presents for evaluation of frequent UTIs. He was found to have E coli outpatient culture that was sensitive to cephalosporins, gentamicin, tobramycin, ampicillin/sulbactam that was resistant to Bactrim and fluoroquinolones. Plan for basic labs, urinalysis Medications Administered Discontinued Medications Generic Name Dose Route Start Last Admin Trade Name Freq PRN Reason Stop Dose Admin Ceftriaxone Sodium 2 gm 02/23/24 18:32 02/23/24 19:01 Ceftriaxone Sodium 2 Gm Vial IVPUSH 02/23/24 18:33 2 gm ONCE ONE Administration Medical Decision Making Medical Decision Making [facility] Narrative: Patient's uncomplicated UTI with E coli in the urine in his sensitive to do most of the antibiotics will prescribe cefuroxime patient received IV antibiotic in the ER feeling much better will discharge patient home Lab Data [facility] Lab Attestation statement: I reviewed the patient's lab results. 02/23/24 18:37 02/23/24 18:37 Labs: Lab Results 02/23/24 Range/Units 18:37 WBC 11.6 H (4.8-10.8) X10*3/uL RBC 4.41 L (4.60-5.80) X10*6/uL Hgb 13.6 L (14.0-18.0) g/dl Hct 40.5 L (42.0-52.0) % MCV 91.8 (80.0-98.0) fL MCH 30.8 (27.0-33.0) pg MCHC 33.6 (31.0-36.0) g/dl RDW 14.8 (11.0-16.0) % Plt Count 199 D (160-400) X10*3/uL MPV 10.2 (9.4-12.4) fL Immature Gran % (Auto) 1.1 H (0.0-0.4) % Neut % (Auto) 85.0 H (45-73) % Lymph % (Auto) 6.7 L (20-40) % [place] % (Auto) 5.3 (2-11) % Eos % (Auto) 1.6 (0-4) % Baso % (Auto) 0.3 (0-2) % Lymph # (Auto) 0.8 L (1.2-4.9) X10*3/uL [place] # (Auto) 0.6 (0.1-1.2) X10*3/uL Eos # (Auto) 0.2 (0.0-0.4) X10*3/uL Baso # (Auto) 0.0 (0.0-0.2) X10*3/uL Abs Immat Gran (auto) 0.13 H (0.00-0.03) X10*3/uL Absolute Neuts (auto) 9.8 H (2.0-8.3) x10*3/uL Absolute Nucleated RBC 0.000 (0.0-0.012) X10*3/uL Nucleated RBC % (auto) 0.0 (0.0-0.2) /100WBC Sodium 136 (135-145) mmol/L Potassium 3.4 (3.3-5.1) mmol/L Chloride 100 (96-108) mmol/L Carbon Dioxide 25 (22-29) mmol/L Anion Gap 14 (12-20) BUN 46 H (9-16) mg/dL Creatinine 1.92 H (0.5-1.4) mg/dL Estim Creat Clear Calc 54.1 Estimated GFR 35 Random Glucose 165 H (60-115) mg/dL Lactic Acid 1.1 (0.5-2.0) mmol/L Calcium 9.1 (8.4-10.2) mg/dL Total Bilirubin 0.7 (0.0-1.0) mg/dL AST 17 (5-37) U/L ALT 7 (0-40) U/L Alkaline Phosphatase 94 (39-117) U/L Total Protein 6.9 (6.5-8.0) g/dL Albumin 3.7 (3.5-5.0) g/dL Lipase 27 (8-78) U/L Discharge Plan Discharge Clinical Impression: Acute UTI Patient Disposition: Home, Self-Care Instructions: Urinary Tract Infection in Men (ED) Additional Instructions: Drink plenty of fluids Take antibiotic as prescribed Follow up with your PCP if not better Prescriptions: New cefuroxime axetil 500 mg tablet 500 mg PO BID 10 Days Qty: 20 0RF No Action Eliquis 5 mg tablet 5 mg PO BID 30 Days Qty: 60 5RF potassium chloride 20 mEq tablet extended release 20 meq PO BID 90 Days Qty: 180 0RF bethanechol chloride 50 mg tablet 50 mg PO BID 30 Days Qty: 60 2RF methenamine hippurate 1 gram Tablet 1 g PO BID tamsulosin 0.4 mg Capsule 0.4 mg PO BEDTIME insulin aspart U-100 [Novolog U-100 Insulin aspart] 100 unit/mL Solution 14 unit SUBCUT DAILY@1200 allopurinol 300 mg Tablet 300 mg PO DAILY cholecalciferol (vitamin D3) 50 mcg (2,000 unit) Capsule 50 mcg PO DAILY ascorbic acid (vitamin C) [Vitamin C] 1,000 mg tablet 500 mg PO ONCE insulin glargine [Lantus Solostar U-100 Insulin] 100 unit/mL (3 mL) Insulin Pen 36 unit SUBCUT BEDTIME@2100 cyanocobalamin (vitamin B-12) 100 mcg Tablet 200 mcg PO DAILY rosuvastatin 40 mg Tablet 40 mg PO BEDTIME ketoconazole 2 % Cream 1 appl TOPICAL BID PRN (Reason: Skin Irritation) torsemide 20 mg tablet 20 mg PO DAILY@1200 PRN amlodipine 5 mg tablet 10 mg PO DAILY@1200 pantoprazole [Protonix] 40 mg tablet,delayed release (DR/EC) 40 mg PO DAILY Qty: 30 0RF Ozempic 0.25 mg or 0.5 mg (2 mg/3 mL) pen injector 0.25 mg subcut QWEEK Rx Instructions: for 4 weeks Probiotic 3 billion cell capsule 3,000 mmu cells PO DAILY Rx Instructions: administer with a meal torsemide 20 mg tablet 60 mg PO DAILY Rx Instructions: 2 am 1 noon metolazone 2.5 mg tablet 2.5 mg PO Q OTHER DAY PRN (Reason: weight gain) Qty: 14 5RF bethanechol chloride 50 mg tablet 50 mg PO BID 10 Days Qty: 20 0RF Print Language: [place] Citizen
[2024-02-23 18:20] VITALS: BP 136/57; PULSE 77; RESP 16; TEMP 36.7; O2SAT 94
--- NOTE | 2024-02-23 18:24 | PC.NURSE ---
Pt comes to ED today for c/o pungent odor and murky urine starting on 02/18/24. Pt c/o 2/10 flank pain. A&Ox3. VSS, afebrile. Provider to bedside for eval. cathodic protection technician completing blood work now.
[2024-02-23 18:42] LABS: MANUAL DIFF FLAG NO
[2024-02-23 18:43] LABS: Basophils Percent Auto 0.3 % (0-2); Eosinophils Absolute Auto 0.2 X10*3/uL (0.0-0.4); Eosinophils Percent Auto 1.6 % (0-4); Hematocrit 40.5 % (42.0-52.0); Hemoglobin 13.6 g/dl (14.0-18.0); Imm Gran Abs Auto 0.13 X10*3/uL (0.00-0.03); Imm Gran Pct Auto 1.1 % (0.0-0.4); Lymphocytes Absolute Auto 0.8 X10*3/uL (1.2-4.9); Lymphocytes Percent Auto 6.7 % (20-40); Mean Corpuscular HGB Conc 33.6 g/dl (31.0-36.0); Mean Corpuscular Hemoglobin 30.8 pg (27.0-33.0); Mean Corpuscular Volume 91.8 fL (80.0-98.0); Mean Platelet Volume 10.2 fL (9.4-12.4); Monocytes Absolute Auto 0.6 X10*3/uL (0.1-1.2); Monocytes Percent Auto 5.3 % (2-11); Neutrophils Absolute Auto 9.8 x10*3/uL (2.0-8.3); Platelet Count 199 X10*3/uL (160-400); Red Blood Count 4.41 X10*6/uL (4.60-5.80); Red Cell Distribution Width 14.8 % (11.0-16.0); White Blood Count 11.6 X10*3/uL (4.8-10.8)
[2024-02-23 18:57] LABS: Lactic Acid 1.1 mmol/L (0.5-2.0)
[2024-02-23 18:58] LABS: Alanine Aminotransferase 7 U/L (0-40); Albumin Level 3.7 g/dL (3.5-5.0); Alkaline Phosphatase 94 U/L (39-117); Anion Gap 14 (12-20); Aspartate Amino Transferase 17 U/L (5-37); Bilirubin Total 0.7 mg/dL (0.0-1.0); Blood Urea Nitrogen 46 mg/dL (9-16); Calcium 9.1 mg/dL (8.4-10.2); Carbon Dioxide 25 mmol/L (22-29); Chloride 100 mmol/L (96-108); Creatinine Clr Calc Pharmacy 54.1; Estimated Glomerular Filt Rate 35; Glucose Random 165 mg/dL (60-115); Lipase 27 U/L (8-78); Potassium 3.4 mmol/L (3.3-5.1); Sodium 136 mmol/L (135-145); Total Protein 6.9 g/dL (6.5-8.0)
[2024-02-23] MEDS: cefTRIAXone sodium 2 GM VIAL IVPUSH (19:01)
--- NOTE | 2024-02-23 19:02 | PC.NURSE ---
RN report given to Sandra. Care of Pt relinquished to TERRELL Flores.
--- NOTE | 2024-02-23 19:08 | PC.NURSE ---
This RN assumed pt care @ 1900. Pt sitting up in bed, no signs of distress Pt a&ox3, denies pain at this time Family at bedside Plan of care ongoing.
[2024-02-23 20:11] VITALS: BP 138/74; PULSE 69; RESP 16; TEMP 36.7; O2SAT 97
--- NOTE | 2024-02-25 02:21 | ED.MALEGU ---
HPI - Male Genitourinary General Chief complaint: Urogenital-Male Stated complaint: Not feeling well Time Seen by Provider: 02/23/24 18:10 Source: patient Mode of arrival: ambulatory Limitations: no limitations Related Data Home Medications ?Medication ?Instructions ?Recorded ?Confirmed allopurinol 300 mg tablet 300 mg PO DAILY 11/03/20 10/30/23 cholecalciferol (vitamin D3) 50 50 mcg PO DAILY 11/03/20 10/30/23 mcg (2,000 unit) capsule insulin aspart U-100 100 unit/mL 14 unit subcut DAILY@1200 11/03/20 10/30/23 subcutaneous solution (Novolog U-100 Insulin aspart) methenamine hippurate 1 gram tablet 1 g PO BID 11/03/20 10/30/23 tamsulosin 0.4 mg capsule 0.4 mg PO BEDTIME 11/03/20 10/30/23 cyanocobalamin (vitamin B-12) 100 200 mcg PO DAILY 05/02/22 10/30/23 mcg tablet insulin glargine 100 unit/mL (3 36 unit subcut BEDTIME@2100 05/02/22 10/30/23 mL) subcutaneous pen (Lantus Solostar U-100 Insulin) rosuvastatin 40 mg tablet 40 mg PO BEDTIME 05/02/22 10/30/23 ketoconazole 2 % topical cream 1 appl topical BID PRN Skin 04/01/23 10/30/23 Irritation lactobacillus combination no.4 3 3,000 mmu cells PO DAILY 04/27/23 10/30/23 billion cell capsule (Probiotic) torsemide 20 mg tablet 20 mg PO DAILY@1200 PRN 04/27/23 10/30/23 torsemide 20 mg tablet 60 mg PO DAILY 10/30/23 10/30/23 ascorbic acid (vitamin C) 1,000 mg 500 mg PO ONCE 11/13/23 tablet (Vitamin C) amlodipine 5 mg tablet 10 mg PO DAILY@1200 11/29/23 semaglutide 0.25 mg or 0.5 mg (2 0.25 mg subcut QWEEK 11/29/23 mg/3 mL) subcutaneous pen injector (Ozempic) Previous Rx's ?Medication ?Instructions ?Recorded apixaban 5 mg tablet (Eliquis) 5 mg PO BID 30 days #60 tabs 03/26/20 pantoprazole 40 mg tablet,delayed 40 mg PO DAILY #30 tabs 02/13/23 release (Protonix) metolazone 2.5 mg tablet 2.5 mg PO Q OTHER DAY PRN weight 10/30/23 gain #14 tabs potassium chloride 20 mEq 20 meq PO BID 90 days #180 tabs 01/19/24 tablet,extended release bethanechol chloride 50 mg tablet 50 mg PO BID 10 days #20 tabs 02/13/24 bethanechol chloride 50 mg tablet 50 mg PO BID 30 days #60 tabs 02/13/24 cefuroxime axetil 500 mg tablet 500 mg PO BID 10 days #20 tabs 02/23/24 Allergies Allergy/AdvReac Type Severity Reaction Status Date / Time Penicillins AdvReac Intermediate HALLUCINATIONS, Verified 02/23/24 17:58 SWEATS PMFSH Past Medical History Medical History Abnormal CT of the abdomen Acute UTI Diabetes Morbid obesity Chronic atrial fibrillation History of ESBL E. 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 Hypertension Kidney disease Social History Social History Household Members: Spouse Housing: House Do you presently have visiting nurse or other home services: Yes ([employer] 3x/week) Alcohol intake: never Comment: pt refuses Patient Tobacco Use Status: Never used Tobacco Smoked in Last 30 Days: No Use of substances other than those prescribed or required for medical reasons: No Advance Directives: Yes Advance Directives on File: Yes Advance Directives Date on File: 05/16/22 Do you have a plan to hurt others: No Plan service: Yes Current occupational status: retired Physical Exam Vital Signs: Vital Signs: Last Vital Signs Temp 98.0 F 02/23/24 20:11 Pulse 69 02/23/24 20:11 Resp 16 02/23/24 20:11 BP 138/74 02/23/24 20:11 Pulse Ox 97 02/23/24 20:11 O2 Del Method Room Air 02/23/24 20:11 BMI result Body Mass Index 53.7 Course Reevaluation(s) Reevaluation #1: Received noticed in the lab that the patient has 1 set of blood cultures positive for Gram-positive cocci in clusters. I feel this is likely a contaminant as the patient is UTI was a Gram-negative E coli. Nevertheless, I called the patient just now and he answered the phone. He reports that he feels well, somewhat tired but improved compared to when he was here the other day. He has not had any fevers. He plans to call his urologist on Monday for advice going forward. I encouraged him to return to the ER if he develops a fever or feels worse. Time: 02:22 Medications Administered Discontinued Medications Generic Name Dose Route Start Last Admin Trade Name Frenemesio PRN Reason Stop Dose Admin Ceftriaxone Sodium 2 gm 02/23/24 18:32 02/23/24 19:01 Ceftriaxone Sodium 2 Gm Vial IVPUSH 02/23/24 18:33 2 gm ONCE ONE Administration Medical Decision Making Lab Data 02/23/24 18:37 02/23/24 18:37 Labs: Lab Results 02/23/24 Range/Units 18:37 WBC 11.6 H (4.8-10.8) X10*3/uL RBC 4.41 L (4.60-5.80) X10*6/uL Hgb 13.6 L (14.0-18.0) g/dl Hct 40.5 L (42.0-52.0) % MCV 91.8 (80.0-98.0) fL MCH 30.8 (27.0-33.0) pg MCHC 33.6 (31.0-36.0) g/dl RDW 14.8 (11.0-16.0) % Plt Count 199 D (160-400) X10*3/uL MPV 10.2 (9.4-12.4) fL Immature Gran % (Auto) 1.1 H (0.0-0.4) % Neut % (Auto) 85.0 H (45-73) % Lymph % (Auto) 6.7 L (20-40) % [place] % (Auto) 5.3 (2-11) % Eos % (Auto) 1.6 (0-4) % Baso % (Auto) 0.3 (0-2) % Lymph # (Auto) 0.8 L (1.2-4.9) X10*3/uL [place] # (Auto) 0.6 (0.1-1.2) X10*3/uL Eos # (Auto) 0.2 (0.0-0.4) X10*3/uL Baso # (Auto) 0.0 (0.0-0.2) X10*3/uL Abs Immat Gran (auto) 0.13 H (0.00-0.03) X10*3/uL Absolute Neuts (auto) 9.8 H (2.0-8.3) x10*3/uL Absolute Nucleated RBC 0.000 (0.0-0.012) X10*3/uL Nucleated RBC % (auto) 0.0 (0.0-0.2) /100WBC Sodium 136 (135-145) mmol/L Potassium 3.4 (3.3-5.1) mmol/L Chloride 100 (96-108) mmol/L Carbon Dioxide 25 (22-29) mmol/L Anion Gap 14 (12-20) BUN 46 H (9-16) mg/dL Creatinine 1.92 H (0.5-1.4) mg/dL Estim Creat Clear Calc 54.1 Estimated GFR 35 Random Glucose 165 H (60-115) mg/dL Lactic Acid 1.1 (0.5-2.0) mmol/L Calcium 9.1 (8.4-10.2) mg/dL Total Bilirubin 0.7 (0.0-1.0) mg/dL AST 17 (5-37) U/L ALT 7 (0-40) U/L Alkaline Phosphatase 94 (39-117) U/L Total Protein 6.9 (6.5-8.0) g/dL Albumin 3.7 (3.5-5.0) g/dL Lipase 27 (8-78) U/L Discharge Plan Discharge Clinical Impression: Acute UTI Patient Disposition: Home, Self-Care Instructions: Urinary Tract Infection in Men (ED) Additional Instructions: Drink plenty of fluids Take antibiotic as prescribed Follow up with your PCP if not better Prescriptions: New cefuroxime axetil 500 mg tablet 500 mg PO BID 10 Days Qty: 20 0RF No Action Eliquis 5 mg tablet 5 mg PO BID 30 Days Qty: 60 5RF potassium chloride 20 mEq tablet extended release 20 meq PO BID 90 Days Qty: 180 0RF bethanechol chloride 50 mg tablet 50 mg PO BID 30 Days Qty: 60 2RF methenamine hippurate 1 gram Tablet 1 g PO BID tamsulosin 0.4 mg Capsule 0.4 mg PO BEDTIME insulin aspart U-100 [Novolog U-100 Insulin aspart] 100 unit/mL Solution 14 unit SUBCUT DAILY@1200 allopurinol 300 mg Tablet 300 mg PO DAILY cholecalciferol (vitamin D3) 50 mcg (2,000 unit) Capsule 50 mcg PO DAILY ascorbic acid (vitamin C) [Vitamin C] 1,000 mg tablet 500 mg PO ONCE insulin glargine [Lantus Solostar U-100 Insulin] 100 unit/mL (3 mL) Insulin Pen 36 unit SUBCUT BEDTIME@2100 cyanocobalamin (vitamin B-12) 100 mcg Tablet 200 mcg PO DAILY rosuvastatin 40 mg Tablet 40 mg PO BEDTIME ketoconazole 2 % Cream 1 appl TOPICAL BID PRN (Reason: Skin Irritation) torsemide 20 mg tablet 20 mg PO DAILY@1200 PRN amlodipine 5 mg tablet 10 mg PO DAILY@1200 pantoprazole [Protonix] 40 mg tablet,delayed release (DR/EC) 40 mg PO DAILY Qty: 30 0RF Ozempic 0.25 mg or 0.5 mg (2 mg/3 mL) pen injector 0.25 mg subcut QWEEK Rx Instructions: for 4 weeks Probiotic 3 billion cell capsule 3,000 mmu cells PO DAILY Rx Instructions: administer with a meal torsemide 20 mg tablet 60 mg PO DAILY Rx Instructions: 2 am 1 noon metolazone 2.5 mg tablet 2.5 mg PO Q OTHER DAY PRN (Reason: weight gain) Qty: 14 5RF bethanechol chloride 50 mg tablet 50 mg PO BID 10 Days Qty: 20 0RF Interventions: ED Discharge Assessment Last Done: 02/23/24 20:11 Discharge Date/Time: 02/23/24 20:23 Print Language: Portuguese
== END 2024-02-23 20:23 | disposition home or self-care (01) ==
PROVIDERS: Physician Assistant; Emergency Provider Internal Medicine; PCP Internal Medicine
DX: N39.0 Urinary tract infection, site not specified (principal); E11.9 Type 2 diabetes mellitus without complications; Z87.440 Personal history of urinary (tract) infections; Z79.4 Long term (current) use of insulin; Z79.899 Other long term (current) drug therapy
CPT/HCPCS: 36415; 80053; 83605; 83690; 85025; 87040; 87147; 87205; 96374; 99284; J0696

== ENCOUNTER 2024-04-26 13:21 | Outpatient (REF) | payer OTHER, SELFPAY ==
[2024-04-26 14:32] LABS: Appearance Urine Cloudy; Color Urine Yellow; Glucose Urine UA >=1000 mg/dL (Negative); Leukocyte Esterase Urine Large (3+) (Negative); Nitrite Urine Negative (Negative); UMIC TRIGGER UA YES; Urine Blood Trace (Negative); Urine Ketones Negative (Negative); Urine Protein 100 (2+) mg/dL (Neg-Trace)
[2024-04-26 14:34] LABS: Bacteria Urine 4+ (None Seen); RBC Urine 0-2 /HPF (0-2); Squamous Epithelial Cell Urine 0-2 /HPF (0-2); WBC Urine >50 /HPF (0-5)
--- OUTSIDE RECORDS SUMMARY | 2024-04-26 15:05 | XMS_ITS ---
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 Name Role Phone Javan RAMAN, Guzman Primary Care Provider Mayank Gandara Jr Unavailable ALLERGIES Allergen (clinical drug ingredient) Drug/Non Drug Allergy documented on EMR Reaction Allergy Type Onset Date Status Penicillin Unknown Drug Allergy Active RESULTS Component Value Reference Range Notes Liver Fibrosis Pnl Reviewed date:12/28/2023 10:09:27 AM Interpretation: Performing Lab:[facility], [address] [place] [id number] Notes/Report: Liver Fibrosis Score 0.16 Liver Fibrosis Stage F0 Liver Fibrosis Interpretation SEE NOTE no fibrosis Fibro Test Score (f) Metavir Score f>=0 and f<=0.21 : F0 (no fibrosis) f>0.21 and f<=0.27 : F0-F1 (no fibrosis) f>0.27 and f<=0.31 : F1 (minimal fibrosis) f>0.31 and f<=0.48 : F1-F2 (minimal fibrosis) f>0.48 and f<=0.58 : F2 (moderate fibrosis) f>0.58 and f<=0.72 : F3 (advanced fibrosis) f>0.72 and f<=0.74 : F3-F4 (advanced fibrosis) f>0.74 and f<=1.00 : F4 (severe fibrosis) Nec Inflam Act Score 0.03 Nec Inflam Act Grade A0 Nec Inflam Act Interpretation SEE NOTE no activity ActiTest Score (a) Metavir Score a>=0 and a<=0.17 : A0 (no activity) a>0.17 and a<=0.29 : A0-A1 (no activity) a>0.29 and a<=0.36 : A1 (minimal activity) a>0.36 and a<=0.52 : A1-A2 (minimal activity) a>0.52 and a<=0.60 : A2 (significant activity) a>0.60 and a<=0.62 : A2-A3 (significant activity) a>0.62 and a<=1.00 : A3 (severe activity) SUI-Xcsvh-2-Macroglobulin 158 106-279 mg/dL FIB-Haptoglobin 251 43-212 mg/dL FIB-Apolipoprotein A1 134 94-176 mg/dL FIB-Total Bilirubin 0.5 0.2-1.2 mg/dL FIB-GGT 13 3-70 U/L FIB-ALT 12 9-46 U/L Reference ID [id number] Footnote SEE NOTE The reliability of results is dependent on compliance with the preanalytical and analytical conditions recommended by [employer]. The tests have to be deferred for: acute hemolysis, acute hepatitis, acute inflammation, extra hepatic cholestasis. The advice of a specialist should be sought for interpretation in chronic hemolysis and Gilbert's syndrome. The test interpretation is not validated in liver transplant patients. Isolated extreme values of one of the components should lead to caution in interpreting the results. In case of discordance between a biopsy result and a test, it is recommended to seek the advice of a specialist. The causes of these discordances could be due to a flaw of the test or to a flaw in the biopsy: i.e. a liver biopsy has a 33% variability rate for one fibrosis stage. FibroTest is interpretable for chronic hepatitis B and C, alcoholic and non alcoholic steatosis. ActiTest is interpretable for chronic hepatitis B and C. The performance characteristics have been determined by [employer]. It has not been cleared or approved by the U.S. Food and Drug Administration. Performance characteristics refer to the analytical performance of the test. [employer], [employer], the associated logo, [employer] and all associated [employer] ravi are the registered trademarks of [employer]. All third republican ravi - (R) and (TM) - are the property of their respective owners. (C) [id number] [employer]. All rights reserved. THIS TEST WAS PERFORMED AT: [employer] [facility] [id number] [place] [address] OMAR CASTILLO MD,PHD,AJIT REASON FOR VISIT Patient presents today for followup MEDICATIONS Medication SIG (Take, Route, Frequency, Duration) Notes Start Date End Date Status Pantoprazole Sodium 40 MG TAKE 1 TABLET BY MOUTH EVERY DAY Oral for 30 Active Ozempic (0.25 or 0.5 MG/DOSE) 2 MG/1.5ML as directed Subcutaneous 12/18/2023 Active Vitamin D Active Vitamin C Active Allopurinol 300 MG 1 tablet Orally Once a day for 30 day(s) Active Torsemide 20 MG 1 tablet Orally Once a day Active Eliquis 5 MG 1 tablet Orally Twic e a day Active Lantus SoloStar 100 UNIT/ML as directed/36units Subcutaneous at hs Active NovoLOG 100 UNIT/ML as directed Subcutaneous Active amLODIPine Besylate 10 MG 1 tablet Orally Once a day Active Methenamine Hippurate 1 GM 1 tablet Oral ly Twice a day Active Senna Concentrate 8.6 MG 2 tablets at be dtime as needed Orally Once a day for 30 day(s) Active Polyethylene Glycol 3350 as directed Active Bethanechol Chloride 25 MG 1 tablet 1 ho ur before or 2 hours after meals Orally Three times a day for 30 day(s) Active Tamsulosin HCl 0.4 MG 1 capsule Orally O nce a day Active Rosuvastatin Calcium 40 MG 1 tablet Orally Once a day Active Bisacodyl 5 MG 2 null as needed Rec krysta Once a day for 30 day(s) Active PROBLEMS Problem Type ICD Code Onset Dates Problem Status W/U Status Risk SNOMED Code Notes Problem Elevated CA 19-9 level (R97.8) Active confirmed [id number] Problem Encounter for screening for malignant neoplasm of colon (Z12.11) Active confirmed [id number] VITAL SIGNS BMI 54.09 kg/m2 12/18/2023 Blood pressure systolic 000 mm Hg 12/18/19 24 Blood pressure diastolic 00 mm Hg 024 Height 70 in 12/18/2023 Temperature 98.3 degrees Fahrenheit 12/18/19 24 Weight 377 lbs 12/18/2023 Encounters Encounter Location Date Provider [facility] [address] [place] [id number] 12/18/2023 Mayank Lange Jr Abnormal findings on diagnostic imaging of liver and biliary tract R93.2 ; Elevated CA 19-9 level R97.8 and Encounter for screening for malignant neoplasm of colon Z12.11 ASSESSMENTS Encounter Date Diagnosis Assessment Notes Treatment Notes Treatment Clinical Notes 12/18/2023 Abnormal findings on diagnostic imaging of liver and biliary tract (ICD-10 - R93.2) 12/18/2023 Elevated CA 19-9 level (ICD-10 - R97.8) 12/18/2023 Encounter for screening for malignant neoplasm of colon (ICD-10 - Z12.11) PLAN OF TREATMENT Pending Test Test Name Order Date LIVER PROFILE 12/18/2023 LIPASE 12/18/2023 CBC w/o DIFF 12/18/2023 CA 19-9 12/18/2023 Next Appt Details Follow Up: 6 Months, Reason: Provider Name:Mayank murphy Jr, 06/17/2024 10:20:00 AM, [address], [address], [place], [address],
--- OUTSIDE RECORDS SUMMARY | 2024-04-26 15:05 | XMS_ITS ---
Author Organization [facility] Address Unknown Allergies, Adverse Reactions, Alerts Substance Reaction Status Noted Date Resolved Date Penicillin active 05/13/2022 Problems Problem Status Start Date End Date MUSCLE WASTING AND ATROPHY, NOT ELSEWHERE CLASSIFIED, RIGHT LOWER LEG (Primary) (M62.561 - ICD-10-CM) ACTIVE 05/13/2022 COVID-19 (U07.1 - ICD-10-CM) ACTIVE 06/01/2022 EXTENDED SPECTRUM BETA LACTA LOPEZ (ESBL) RESISTANCE (Z16.12 - ICD-10-CM) ACTIVE 05/13/2022 TYPE 2 DIABETES MELLITUS WIT HOUT COMPLICATIONS (E11.9 - ICD-10-CM) ACTIVE 05/13/2022 UNSPECIFIED ATRIAL FIBRILLATION (I48.91 - ICD-10-CM) A CTIVE 05/13/2022 GOUT, UNSPECIFIED (M10.9 - ICD-10-CM) ACTIVE 01/2023 MORBID (SEVERE) OBESITY DUE TO EXCESS CALORIES (E66.01 - ICD-10-CM) ACTIVE 05/13/2022 UNSPECIFIED PROTEIN-CALORIE MALNUTRITION (E46 - ICD-10 -CM) ACTIVE 05/13/2022 ESSENTIAL (PRIMARY) HYPERTENSION (I10 - ICD-10-CM) ACT FREDERIC 05/13/2022 MUSCLE WASTING AND ATROPHY, NOT ELSEWHERE CLASSIFIED, LEFT LOWER LEG (M62.562 - ICD-10-CM) ACTIVE 05/13/2022 UNSPECIFIED ABNORMALITIES OF GAIT AND MOBILITY (R26.9 - ICD-10-CM) ACTIVE 05/13/2022 Encounters Encounter Performer Performer Role Encounter Diagnoses Location Date Discharge - Discharged to home or self care - Other - Other [facility] 3 06:03 pm EST - 3 05:25 pm EST Immunizations Vaccine Date Influenza 12/15/2021 12:00 am EDT Tetanus 04/28/2017 12:00 am EST PCV13 (Pneumococcal Conjugate)Vaccine 12:00 am EDT PPSV23 (Previous Pneumococcal Polysaccha ride)Vaccine 12/07/2016 12:00 am EDT SARS-COV-2 (COVID-19) 07/11/2020 12:00 a m EDT SARS-COV-2 (COVID-19) 06/13/2020 12:00 a m EST Moderna Covid-19 Booster (SARS-COV-2) va ccine 03/06/2021 12:00 am EST Pfizer-[employer] Covid-19 Bi-valent Solut ion 05/20/2022 08:00 am EST Social History
--- OUTSIDE RECORDS SUMMARY | 2024-04-26 15:05 | XMS_ITS | Patient Health Record ---
Author Organization [facility] Address [address] [place] [address] Care Team Providers Care Signal Supervisor Name Role Phone Guzman Edouard MD Primary Care Provider Mayank Gandara Jr Unavailable ALLERGIES Allergen (clinical drug ingredient) Drug/Non Drug Allergy documented on EMR Reaction Allergy Type Onset Date Status Penicillin Unknown Drug Allergy Active RESULTS Component Value Reference Range Notes Complete Blood Count no Diff Reviewed date:07/26/2023 08:52:47 AM Interpretation: Performing Lab:[address] [address] Notes/Report: White Blood Count 7.1 4.8-10.8 X10*3/uL Red Blood Count 4.61 4.60-5.80 X10*6/uL Hemoglobin 12.8 14.0-18.0 g/dl Hematocrit 40.8 42.0-52.0 % Mean Corpuscular Volume 88.5 80.0-98.0 fL Mean Corpuscular Hemoglobin 27.8 27.0-33.0 pg Mean Corpuscular HGB Conc 31.4 31.0-36.0 g/dl Red Cell Distribution Width 14.6 11.0-16.0 % Platelet Count 147 160-400 X10*3/uL Mean Platelet Volume 10.8 9.4-12.4 fL NRBC Pct Auto 0.0 0.0-0.2 /100WBC NRBC Abs Auto 0.000 0.0-0.012 X10*3/uL Liver Panel Reviewed date:07/26/2023 08:52:36 AM Interpretation: Performing Lab:[address] [address] Notes/Report: Bilirubin Total 0.5 0.0-1.0 mg/dL Bilirubin Direct 0.3 0.0-0.5 mg/dL Aspartate Amino Transferase 15 5-37 U/L Alanine Aminotransferase 13 0-40 U/L Total Protein 7.1 6.5-8.0 g/dL Albumin Level 3.8 3.5-5.0 g/dL Alkaline Phosphatase 100 39-117 U/L Lipase Reviewed date:07/26/2023 08:52:30 AM Interpretation: Performing Lab:[address] [address] Notes/Report: Lipase 26 8-78 U/L Carbohydrate Antigen 19-9 Reviewed date:07/26/2023 08:52:22 AM Interpretation: Performing Lab:[address] [address] Notes/Report: Carbohydrate Antigen 19-9 36 <34 U/mL This test was performed using the Siemens chemiluminescent method. Values obtained from different assay methods cannot be used interchangeably. CA 19-9 levels, regardless of value, should not be interpreted as absolute evidence of the presence or absence of disease. THIS TEST WAS PERFORMED AT: [facility] [address] [place] [phone] LEVI AGUILAR MD Liver Fibrosis Pnl Reviewed date:12/28/2023 10:09:27 AM Interpretation: Performing Lab:[address] [address] Notes/Report: Liver Fibrosis Score 0.16 Liver Fibrosis [...] a>0.62 and a<=1.00 : A3 (severe activity) LWQ-Xekir-1-Macroglobulin 158 106-279 mg/dL FIB-Haptoglobin 251 43-212 mg/dL FIB-Apolipoprotein A1 134 94-176 mg/dL FIB-Total Bilirubin 0.5 0.2-1.2 mg/dL FIB-GGT 13 3-70 U/L FIB-ALT 12 9-46 U/L Reference ID [id number] Footnote SEE NOTE The reliability of results is dependent on compliance with the preanalytical and analytical conditions recommended by [employer]. The tests have to be deferred for: [...] The performance characteristics have been determined by [facility]. It has not been cleared or approved by the U.S. Food and Drug Administration. Performance characteristics refer to the analytical performance of the test. [employer], [employer], the associated logo, [employer] and all associated [employer] ravi are the registered trademarks of [employer]. All third constitution party ravi - (R) and (TM) - are the property of their respective owners. (C) [id number] [employer]. All rights reserved. THIS TEST WAS PERFORMED AT: [facility] [facility] [address] [place] [address] OMAR CASTILLO MD,PHD,AJIT Complete Blood Count Auto Di ff Reviewed date:12/20/2023 08:00:01 AM Interpretation: Performing Lab:[facility], [address] [place] [address] Notes/Report: White Blood Count 8.3 4.8-10.8 X10*3/uL Red Blood Count 4.76 4.60-5.80 X10*6/uL Hemoglobin 14.2 14.0-18.0 g/dl Hematocrit 43.7 42.0-52.0 % Mean Corpuscular Volume 91.8 80.0-98.0 fL Mean Corpuscular Hemoglobin 29.8 27.0-33.0 pg Mean Corpuscular HGB Conc 32.5 31.0-36.0 g/dl Red Cell Distribution Width 15.7 11.0-16.0 % Platelet Count 157 160-400 X10*3/uL Mean Platelet Volume 11.2 9.4-12.4 fL Neutrophils Percent Auto 80.4 45-73 % Imm Gran Pct Auto 0.7 0.0-0.4 % Lymphocytes Percent Auto 10.1 20-40 % Monocytes Percent Auto 6.8 2-11 % Eosinophils Percent Auto 1.6 0-4 % Basophils Percent Auto 0.4 0-2 % NRBC Pct Auto 0.0 0.0-0.2 /100WBC Neutrophils Absolute Auto 6.6 2.0-8.3 x10*3/u L Imm Gran Abs Auto 0.06 0.00-0.03 X10*3/uL Lymphocytes Absolute Auto 0.8 1.2-4.9 X10*3/u L Monocytes Absolute Auto 0.6 0.1-1.2 X10*3/uL Eosinophils Absolute Auto 0.1 0.0-0.4 X10*3/u L Basophils Absolute Auto 0.0 0.0-0.2 X10*3/uL NRBC Abs Auto 0.000 0.0-0.012 X10*3/uL Liver Panel Reviewed date:12/21/2023 11:05:27 AM Interpretation: Performing Lab:[address] [address] Notes/Report: Bilirubin Total 0.7 0.0-1.0 mg/dL Bilirubin Direct 0.3 0.0-0.5 mg/dL Aspartate Amino Transferase 16 5-37 U/L Alanine Aminotransferase 15 0-40 U/L Total Protein 6.7 6.5-8.0 g/dL Albumin Level 3.7 3.5-5.0 g/dL Alkaline Phosphatase 78 39-117 U/L Basic Metabolic Panel Reviewed date:12/21/2023 11:05:35 AM Interpretation: Performing Lab:[address] [address] Notes/Report: Sodium 140 135-145 mmol/L Potassium 3.7 3.3-5.1 mmol/L Chloride 99 96-108 mmol/L Carbon Dioxide 31 22-29 mmol/L Anion Gap 14 12-20 Blood Urea Nitrogen 66 9-16 mg/dL Creatinine 2.03 0.5-1.4 mg/dL Estimated Glomerular Filt Rate 32 NOTE: For -Bhutanese individuals, multiply the result by 1.210. Chronic Kidney Disease: Estimated GFR < 60 mL/min/1.73m2 Severe Kidney Disease: Estimated GFR < 15 mL/min/1.73m2 Glucose Random 175 60-115 mg/dL Calcium 8.8 8.4-10.2 mg/dL B Type Natriuretic Peptide Reviewed date:12/21/2023 11:05:13 AM Interpretation: Performing Lab:[address] [address] Notes/Report: B Type Natriuretic Peptide 121 <100 pg/mL For those patients who are being treated with Natrecor (nesiritide, recombinant BNP), BNP testing should be performed at least two hours post treatment in order to ensure that only endogenous levels of BNP are detected. Lipase Reviewed date:12/20/2023 08:00:06 AM Interpretation: Performing Lab:[facility], [address] [place] [address] Notes/Report: Lipase 26 8-78 U/L Carbohydrate Antigen 19-9 Reviewed date:12/28/2023 10:09:20 AM Interpretation: Performing Lab:[facility], [address] [place] [address] Notes/Report: Carbohydrate Antigen 19-9 41 <34 U/mL This test was performed using the Siemens chemiluminescent method. Values obtained from different assay methods cannot be used interchangeably. CA 19-9 levels, regardless of value, should not be interpreted as absolute evidence of the presence or absence of disease. THIS TEST WAS PERFORMED AT: [facility] [address] [place] [phone] LEVI AGUILAR MD REASON FOR REFERRAL Referring Provider First Name Guzman Referring Provider Last Name Javan Referring Provider Speciality Internal edicine Referred Organization [facility] Referred Provider Mayank Lange Jr Referred Address [address] [place] [phone], Referred Provider Specialty Gastroentero logy General Notes Celia Mckeon 024 01:22:35 PM EDT > faxed request to the PR for authorization for visit whzelda Resendiz on 07-13-2023 at 4:15 p.m. Referral Priority Routine Referring Provider First Name Guzman Referring Provider Last Name Javan Referring Provider Speciality Internal edicine Referred Organization [facility] Referred Provider Mayank Lange Jr Referred Address [address] [place] [phone], Referred Provider Specialty Gastroentero logy General Notes Celia Mckeon 024 03:35:52 PM EDT > requested a [facility] from Cora at the me for the patient's visit with Dr. Lange on 12-18-2023 Referral Priority Routine MEDICATIONS Medication SIG (Take, Route, Frequency, Duration) Notes Start Date End Date Status NovoLOG 100 UNIT/ML as directed Subcutaneous Active Pantoprazole Sodium 40 MG TAKE 1 TABLET BY MOUTH EVERY DAY Oral for 30 Active Ozempic (0.25 or 0.5 MG/DOSE) 2 MG/1.5ML as directed Subcutaneous 12/18/2023 Active amLODIPine Besylate 10 MG 1 tablet Orally Once a day Active Bisacodyl 5 MG 2 null as needed Rec krysta Once a day for 30 day(s) Active Allopurinol 300 MG 1 tablet Orally Once a day for 30 day(s) Active Senna Concentrate 8.6 MG 2 tablets at be dtime as needed Orally Once a day for 30 day(s) Active Polyethylene Glycol 3350 as directed Active Torsemide 20 MG 1 tablet Orally Once a day Active Bethanechol Chloride 25 MG 1 tablet 1 ho ur before or 2 hours after meals Orally Three times a day for 30 day(s) Active Eliquis 5 MG 1 tablet Orally Twic e a day Active Tamsulosin HCl 0.4 MG 1 capsule Orally O nce a day Active Lantus SoloStar 100 UNIT/ML as directed/36units Subcutaneous at hs Active Rosuvastatin Calcium 40 MG 1 tablet Orally Once a day Active Vitamin D Active Methenamine Hippurate 1 GM 1 tablet Oral ly Twice a day Active Vitamin C Active IMMUNIZATIONS Vaccine Route Administration Date Status Comme nts Influenza Unknown 01/24/2023 Administered SOCIAL HISTORY Sex Assigned At : Social History Observation Description Sex Assigned At Unknown PROBLEMS Problem Type ICD Code Onset Dates Problem Status W/U Status Risk SNOMED Code Notes Problem Encounter for screening for malignant neoplasm of colon (Z12.11) Active confirmed 980044177 Problem Abnormal findings on diagnostic imaging of liver and biliary tract (R93.2) Active confirmed 411274672 Problem Choledocholithiasis (K80.50) Active confirmed 193882919 Problem Gallstones (K80.20) Active confirmed Ga llstones (779590255) Problem Diverticulosis of colon (K57.30) Active confirmed Diverticulosi s of colon (645786140) Problem Elevated CA 19-9 level (R97.8) Active confirmed 37295496191322794 VITAL SIGNS Temperature 98.3 degrees Fahrenheit 12/18/2023 Blood pressure diastolic 00 mm Hg 12/18/2023 Height 70 in 12/18/2023 Blood pressure systolic 000 mm Hg 12/18/2023 Weight 377 lbs 12/18/2023 BMI 54.09 kg/m2 12/18/2023 Encounters Encounter Location Date Provider Diagnosis [address] [place] [address] 07/13/2023 Mayank Lange Jr Choledocholithiasis K80.50 ; Abnormal contrast radiography of biliary tree R93.2 and Colon cancer screening Z12.11 [facility] [address] [place] [address] 12/18/2023 Mayank Lange Jr Abnormal findings on diagnostic imaging of liver and biliary tract R93.2 ; Elevated CA 19-9 level R97.8 and Encounter for screening for malignant neoplasm of colon Z12.11 [facility] [address] [place] [address] 07/05/2023 Mayank Lange Jr [facility] [address] [place] [address] 07/26/2023 Mayank Lange Jr Abnormal findings on diagnostic imaging of liver and biliary tract R93.2 [facility] [address] [place] [address] 08/04/2023 Mayank Lange Jr Abnormal findings on diagnostic imaging of liver and biliary tract R93.2 [facility] [address] [facility] [place] [address] 08/07/2023 Mayank Lange Jr [facility] [address] [place] [address] 09/07/2023 Mayank Lange Jr [facility] [address] [place] [address] 11/23/2023 Mayank Lange Jr Abnormal findings on diagnostic imaging of liver and biliary tract R93.2 [facility] [address] [place] [address] 11/29/2023 Mayank Lange Jr [facility] [address] [place] [address] 12/28/2023 Mayank Lange Jr ASSESSMENTS Encounter Date Diagnosis Assessment Notes Treatment Notes Treatment Clinical Notes 07/13/2023 Choledocholithiasis (ICD-10 - K80.50) Gastroesophageal reflux disease material was printed 07/13/2023 Abnormal contrast radiography of biliary tree (ICD-10 - R93.2) 12/18/2023 Abnormal findings on diagnostic imaging of liver and biliary tract (ICD-10 - R93.2) 12/18/2023 Elevated CA 19-9 lev el (ICD-10 - R97.8) 07/26/2023 Abnormal findings on diagnostic imaging of liver and biliary tract (ICD-10 - R93.2) 08/04/2023 Abnormal findings on diagnostic imaging of liver and biliary tract (ICD-10 - R93.2) 11/23/2023 Abnormal findings on diagnostic imaging of liver and biliary tract (ICD-10 - R93.2) 07/13/2023 Colon cancer screeni ng (ICD-10 - Z12.11) 12/18/2023 Encounter for screen ing for malignant neoplasm of colon (ICD-10 - Z12.11) PLAN OF TREATMENT Pending Test Test Name Order Date LIVER PROFILE 07/13/2023 LIVER PROFILE 12/18/2023 LIVER PROFILE 11/23/2023 LIPASE 07/13/2023 LIPASE 12/18/2023 LIPASE 11/23/2023 CBC w/o DIFF 07/13/2023 CBC w/o DIFF 12/18/2023 CBC w/o DIFF 11/23/2023 CA 19-9 07/13/2023 CA 19-9 12/18/2023 CA 19-9 11/23/2023 MRI ABD NO CONTRAST (MRCP) 08/04/2023 MRI ABD W&WO CONTRAST 07/26/2023 Liver Fibrosis Pnl 11/23/2023 Transglutaminase Ab IgG 05/07/2022 Future Test Test Name Order Date COLONOSCOPY 07/20/2012 Next Appt Details Provider Name:Mayank murphy , 06/17/2024 10:20:00 AM, [address] [place] [address], [address], [place], [address], Insurance Providers Payer Name Payer Address Payer Phone Subscriber Number Group Number Insured Name Patient Relationship to Insured Coverage Start Date Coverage End Date [facility] [employer] [address] [place]O DANGELO [id number] MARIANNE WALTON Self - patient is the insured MEDICAL (GENERAL) HISTORY Medical History History ICD Code Colonoscopy 10/10/12, hyperplastic polyp, ten-year followup Atrial fibrillation Morbid obesity GERD Insulin-dependent diabetes sleep apnea Hypertension melanoma left eye Nephrolithiasis, urinary tract infection s, chronic renal insufficiency Surgical History Surgery Date(Month/Year) tonsillectomy Gallstones, choledocholithiasis, ERCP Left leg vascular surgery 2021 Hospitalization History Reason Date(Month/Year) Congestive heart failure 11/30/23
--- OUTSIDE RECORDS SUMMARY | 2024-04-26 15:05 | XMS_ITS | Clinical Summary ---
Author Organization [facility] Facility Address [address] [place] [id number] Care Team Providers Care Ferruler Name Role Phone Unavailable Primary Care Provider Unavailabl e Social History Tobacco Use Types Packs/Day Years Used Date Smoking Tobacco: Never Assessed Sex and Gender Information Value Date Recorded Sex Assigned at Not on file Legal Sex Male 4:57 PM EST Gender Identity Not on file Sexual Orientation Not on file Plan of Treatment Health Maintenance Due Date Last Done Comments Colorectal Cancer Screening: Annual FOBT 11/16/1999 Colorectal Cancer Screening: Colonoscopy 11/16/1999 Colorectal Cancer Screening: Sigmoidoscopy 11/16/1999 Pneumococcal Vaccine: 65+ Ye ars (1 of 1 - PCV) 11/16/2015 Influenza Vaccine (#1) 2023 Hepatitis B Vaccine Aged Out No longe r eligible based on patient's age to complete this topic Insurance REGIONS 1,2,3 (VACCN) CCN REGIONS 1,2,3 (VACCN)
--- OUTSIDE RECORDS SUMMARY | 2024-04-26 15:05 | XMS_ITS ---
Author Organization [facility] Address [address] [place] [address] Care Team Providers Care Enterprise Services Manager Name Role Phone Guzman Edouard MD Primary Care Provider Unavailab josey Lange Jr, Mayank Zhao REASON FOR VISIT labs Encounters Encounter Location Date Provider Diagnosis [facility] [address] [place] [address] 12/28/2023 Mayank Lange Jr PLAN OF TREATMENT Next Appt Details Provider Name:Mayank murphy Jr, 06/17/2024 10:20:00 AM, [address], [address], [place], [address],
--- OUTSIDE RECORDS SUMMARY | 2024-04-26 15:05 | XMS_ITS ---
Author Organization [facility] Address [address] [facility] [address] [address] [place] [address] Care Team Providers Care Online Content Editor Name Role Phone Guzman Edouard MD Primary Care Provider Unavailab josey Lange Jr, Mayank Zhao REASON FOR VISIT constipation/asking sooner appt then 16th/waiting on medical records Encounters Encounter Location Date Provider Diagnosis [facility] [address] [place] [address] [address] [place] [address] 11/29/2023 Mayank Lange Jr PLAN OF TREATMENT Next Appt Details Provider Name:Mayank murphy Jr, 06/17/2024 10:20:00 AM, [address] [place] [address], [address], [place], [address],
== END 2024-04-26 13:22 | disposition home or self-care (01) ==
LOC: HO.LAB 13:21
PROVIDERS: PCP Internal Medicine; Visit Provider Urology
DX: N39.0 Urinary tract infection, site not specified (principal); B96.20 Unspecified Escherichia coli [E. coli] as the cause of diseases classified elsewhere
CPT/HCPCS: 81001; 87086; 87088; 87186

== ENCOUNTER 2024-05-08 10:38 | Outpatient (AMB) | payer OTHER, SELFPAY ==
[2024-05-08 10:42] VITALS: BP 128/62; PULSE 74
--- NOTE | 2024-05-08 10:42 | MHC.OFFVIS ---
Vital Signs 05/08/24 10:42 Height 5 ft 10 in BMI Reason not done Patient refused/unable BP 128/62 Blood Pressure Location Lt brachial Position Sitting Pulse 74 Pulse Source Monitor Intake Visit Reasons: 3 mth f/up Allergies Penicillins Adverse Reaction (Intermediate, Verified 02/23/24 17:58) HALLUCINATIONS, SWEATS Medication List - Last Reconciled 05/08/24 by Reji Bailey MD allopurinol 300 mg PO DAILY amlodipine 10 mg PO DAILY@1200 apixaban (Eliquis) 5 mg PO BID 30 days ascorbic acid (vitamin C) (Vitamin C) 500 mg PO ONCE cholecalciferol (vitamin D3) 50 mcg PO DAILY cyanocobalamin (vitamin B-12) 200 mcg PO DAILY insulin aspart U-100 (Novolog U-100 Insulin aspart) 0.12 units subcut DAILY@1200 insulin glargine (Lantus Solostar U-100 Insulin) 42 units subcut BEDTIME@2100 metolazone 2.5 mg PO Q OTHER DAY PRN potassium chloride ER 20 mEq PO BID 90 days rosuvastatin 40 mg PO BEDTIME tamsulosin 0.4 mg PO BEDTIME torsemide 80 mg PO DAILY HPI Comments Details: Geovanni comes for follow-up. He continues to have very rapid fluid accumulation for which she was to take metolazone. He said he takes once every 3 days but very often he was to take it every 2 days. He continues to have exertional shortness of breath which is worsening especially after his recent UTI. He has very limited functional capacity. However he says whenever he does something he gets retrosternal chest pressure in the lower part when he is exerting himself. This is a new symptom he was mentioned to me in the last 3 months. He denies any prolonged palpitation irregular heartbeat. No bleeding issues or neurologic events. Overall his leg edema has remained stable. He is also not been hospitalized in the last 3 months. Uses CPAP regularly. [facility] Medical History Abnormal CT of the abdomen Acute UTI Diabetes Morbid obesity Chronic atrial fibrillation History of ESBL E. 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 Hypertension Kidney disease Social History Household Members: Spouse Housing: House Do you presently have visiting nurse or other home services: Yes (DIRECT CARE WORKER 3x/week) Alcohol intake: never Comment: pt refuses Patient Tobacco Use Status: Never used Tobacco Advance Directives Date on File: 05/16/22 service: Yes Current occupational status: retired Review of Systems Const Denies weakness ENT Denies dizziness Card Denies chest pain, Denies chest pain with activity, Denies syncope, Denies rapid heart rate, Denies pedal edema, Denies edema, Denies leg edema, Denies lightheadedness, Denies palpitations, Denies dyspnea, Denies dyspnea on exertion and Denies orthopnea Resp Denies cough, Denies dyspnea and Denies dyspnea on exertion GI Denies hematochezia and Denies change in stool character Musc Denies abnormal gait, Denies muscle cramps, Denies muscle weakness, Denies numbness, Denies radiating pain into limb and Denies tingling Neuro Denies abnormal gait, Denies dizziness, Denies syncope, Denies numbness, Denies tingling and Denies weakness Endo Denies palpitations Physical Exam Vital Signs: Last Vital Signs Pulse 74 05/08/24 10:42 BP 128/62 05/08/24 10:42 Const Other: Morbidly obese General: cooperative, healthy appearing, comfortable and no acute distress Orientation/consciousness: patient oriented x3 Neck Neck: Yes JVD Resp Effort & Inspection: normal respiratory effort Auscultation: clear to auscultation bilaterally, no crackles, no rales, no rhonchi and no wheezes Cardio Jugular venous distension: JVD Rate: regular rate Rhythm: abnormal rhythm irregularly irregular Heart sounds: S1 normal heart sound present, S2 normal heart sound present, no murmurs and no rubs Neuro General: patient oriented x3 and no focal motor deficits Extrem Other: Bilateral lower leg swelling with redness to skin. Patient reports improved since hospital admission General: No clubbing, No cyanosis and Yes edema (Three to 4+ below knee edema) Psych Appearance: grossly normal Mental Status: mental status grossly normal Speech and movement: Normal speech and movement present Office Procedures EKG Details: EKG shows atrial fibrillation with right bundle branch and left anterior fascicular block with very wide QRS complex with a septal QS pattern [id number]-[id number], Complete Assessment & Plan Assessment & Plan (1) Exertional chest pain: Code(s): R07.9 - Chest pain, unspecified Category: Medical Plan: Patient complains of symptoms of exertional chest pain, could be related to worsening pulmonary hypertension RV function but also could be related to coronary disease given his risk factors. Would suggest a vasodilating myocardial perfusion imaging to further assess for the same. This will be scheduled in near future. Further treatment based on the findings. (2) Chronic right heart failure: Code(s): I50.812 - Chronic right heart failure Category: Medical Plan: Chronic heart failure preserved ejection fraction with predominantly right heart failure in this patient with significant restrictive pulmonary defect as sleep apnea with limited functionality. He was multiple comorbidities including poor function, morbid obesity, sleep apnea, chronic atrial fibrillation, chronic kidney disease that impact his overall prognosis. Clinically he was not had any hospitalization. Continue current high-intensity diuretics for torsemide 80 mg as well as intermittent metolazone as needed. Continue monitor renal function every 3 weeks. Will follow-up echocardiogram near future to assess for LV systolic function but more importantly to assess for RV size and function pulmonary hypertension. Overall prognosis is guarded. Advised to continue CPAP therapy. He is currently not able to take Jardiance therapy due to recurrent UTI on Jardiance therapy. Since stopping Jardiance therapy has not had any recurrent UTIs as per him. Likelihood of UTIs related to Jardiance therapy is low. Usually causes genital fungal infections. (3) Chronic atrial fibrillation: Code(s): I48.20 - Chronic atrial fibrillation, unspecified Category: Medical Plan: Chronic rate control atrial fibrillation has failed rhythm control approach. Significant left atrial enlargement. Unlikely due pursue rhythm control approach. Continue current rate control regimen. Continue full oral anticoagulation, currently Eliquis 5 mg b.i.d.. Quarterly renal function test should be pursued. Greater than 30 minutes was spent in managing his complex care Orders: Orders Basic Metabolic Panel Today I50.32 - Chronic diastolic (congestive) heart failure CA lexiscan stress w nicholas Today I50.32 - Chronic diastolic (congestive) heart failure Medications: Changed From torsemide 2 am 1 noon 60 mg PO DAILY To torsemide 2 am 1 noon 80 mg PO DAILY Coding Level of Care Code Est Pt Level 5 (36234) Complex EM visit Add On G2211 Diagnoses Exertional chest pain R07.9 Chronic right heart failure I50.812 Chronic atrial fibrillation I48.20 CPT Codes EKG - CPT: 90363-[id number], Complete ([id number])
--- OUTSIDE RECORDS SUMMARY | 2024-05-08 11:40 | XMS_ITS | Clinical Summary ---
Author Organization [facility] Address [address] [place] [address] Care Team Providers Care Apprentice Cook Name Role Phone Unavailable Primary Care Provider [...]
== END 2024-05-08 11:26 | disposition home or self-care (01) ==
PROVIDERS: PCP Internal Medicine; Visit Provider Internal Medicine Cardiovascular Disease
DX: R07.9 Chest pain, unspecified (principal); I50.812 Chronic right heart failure; I48.20 Chronic atrial fibrillation, unspecified
CPT/HCPCS: 93010; 99214

== ENCOUNTER → 2024-05-08 10:38 | Outpatient (BNVA) | payer OTHER, SELFPAY ==
--- OUTSIDE RECORDS SUMMARY | 2024-05-10 10:10 | XMS_ITS ---
Author Organization [facility] Address [address] [place] [address] Care Team Providers Care Optometry Assistant Name Role Phone Javan RAMAN, Guzman Primary Care Provider Mayank Gandara Jr Unavailable [phone] ALLERGIES Allergen (clinical drug ingredient) Drug/Non Drug Allergy documented on EMR Reaction Allergy Type Onset Date Status Penicillin Unknown Drug Allergy Active RESULTS Component Value Reference Range Notes Liver Fibrosis Pnl Reviewed date:12/28/2023 10:09:27 AM Interpretation: Performing Lab:[facility], [address] [place] [phone] Notes/Report: Liver Fibrosis Score 0.16 Liver Fibrosis [...] a>0.62 and a<=1.00 : A3 (severe activity) KPF-Uilov-3-Macroglobulin 158 106-279 mg/dL FIB-Haptoglobin 251 43-212 mg/dL FIB-Apolipoprotein A1 134 94-176 mg/dL FIB-Total Bilirubin 0.5 0.2-1.2 mg/dL FIB-GGT 13 3-70 U/L FIB-ALT 12 9-46 U/L Reference ID [id number] Footnote SEE NOTE The reliability of results is dependent on compliance with the preanalytical and analytical conditions recommended by Vee[employer]. The tests have to be deferred for: [...] The performance characteristics have been determined by [employer] [place]. It has not been cleared or approved by the U.S. Food and Drug Administration. Performance characteristics refer to the analytical performance of the test. Zula, [employer], the associated logo, [employer] and all associated Konokopia ravi are the registered trademarks of [employer]. All third libertarian ravi - (R) and (TM) - are the property of their respective owners. (C) 7732-3832 [employer]. All rights reserved. THIS TEST WAS PERFORMED AT: [employer] [address] [place] [address] OMAR CASTILLO MD,PHD,AJIT REASON FOR VISIT Patient [...] Elevated CA 19-9 level (R97.8) Active confirmed [id number] Problem Encounter for screening for malignant neoplasm of colon (Z12.11) Active confirmed [id number] VITAL SIGNS BMI 54.09 kg/m2 12/18/2023 Blood pressure systolic 000 mm Hg 12/18/19 24 Blood pressure diastolic 00 mm Hg 024 Height 70 in 12/18/2023 Temperature 98.3 degrees Fahrenheit 12/18/19 24 Weight 377 lbs 12/18/2023 Encounters Encounter Location Date Provider Diagnosis [facility] [address] [place] [address] 12/18/2023 Mayank Lange Jr Abnormal findings on [...] Details Follow Up: 6 Months, Reason: Provider Name:Mayakn murphy Jr, 06/17/2024 10:20:00 AM, [address] [facility], [address], [place], [address],
--- OUTSIDE RECORDS SUMMARY | 2024-05-10 10:11 | XMS_ITS ---
Author Organization [facility] Address [address] [facility] [address] [place] [address] Care Team Providers Care Cooperative Education Coordinator Name Role Phone Guzman Edouard MD Primary Care Provider Unavailab josey Lange Jr, Mayank Zhao [phone] REASON FOR VISIT labs Encounters Encounter Location Date Provider Diagnosis [facility] [address] [facility] [address] [place] [address] 12/28/2023 Mayank Lange Jr PLAN OF TREATMENT Next Appt Details Provider Name:Mayank murphy Jr, 06/17/2024 10:20:00 AM, [address] [facility], [address], [place], [address],
--- OUTSIDE RECORDS SUMMARY | 2024-05-10 10:11 | XMS_ITS | Clinical Summary ---
Author Organization [facility] Address [address] [place] [address] Care Team Providers Care Building Official Name Role Phone Unavailable Primary Care Provider [...]
--- OUTSIDE RECORDS SUMMARY | 2024-05-10 10:11 | XMS_ITS ---
Author Organization [facility] Address [address] [facility] [address] [place] [address] Care Team Providers Care Director Field Services Name Role Phone Guzman Edouard MD Primary Care Provider Unavailab josey Lange Jr, Mayank Zhao REASON FOR VISIT constipation/asking sooner appt then 16th/waiting on medical records Encounters Encounter Location Date Provider Diagnosis [facility] [address] [place] [address] [address] [place] [address] 11/29/2023 Mayank Lange Jr PLAN OF TREATMENT Next Appt Details Provider Name:Mayank murphy Jr, 06/17/2024 10:20:00 AM, [address] [place] [address], [address], [place], [address],
--- OUTSIDE RECORDS SUMMARY | 2024-05-10 10:11 | XMS_ITS | Patient Health Record ---
Author Organization [facility] Address [address] [place] [address] Care Team Providers Care Ram Press Operator Name Role Phone Guzman Edouard MD Primary Care Provider Mayank Gandara Jr Unavailable ALLERGIES Allergen (clinical drug ingredient) Drug/Non Drug Allergy documented on EMR Reaction Allergy Type Onset Date Status Penicillin Unknown Drug Allergy Active RESULTS Component Value Reference Range Notes Complete Blood Count no Diff Reviewed date:07/26/2023 08:52:47 AM Interpretation: Performing Lab:[address] [address] Notes/Report: White Blood Count 7.1 4.8-10.8 X10*3/uL [...] Panel Reviewed date:07/26/2023 08:52:36 AM Interpretation: Performing Lab:[address] [address] Notes/Report: Bilirubin Total 0.5 0.0-1.0 mg/dL Bilirubin Direct 0.3 0.0-0.5 mg/dL Aspartate Amino Transferase 15 5-37 U/L Alanine Aminotransferase 13 0-40 U/L Total Protein 7.1 6.5-8.0 g/dL Albumin Level 3.8 3.5-5.0 g/dL Alkaline Phosphatase 100 39-117 U/L Lipase Reviewed date:07/26/2023 08:52:30 AM Interpretation: Performing Lab:[address] [address] Notes/Report: Lipase 26 8-78 U/L Carbohydrate Antigen 19-9 Reviewed date:07/26/2023 08:52:22 AM Interpretation: Performing Lab:[address] [address] Notes/Report: Carbohydrate Antigen 19-9 36 <34 U/mL This test was performed using the Siemens chemiluminescent method. Values obtained from different assay methods cannot be used interchangeably. CA 19-9 levels, regardless of value, should not be interpreted as absolute evidence of the presence or absence of disease. THIS TEST WAS PERFORMED AT: [employer] [facility] [address] [place] [phone] LEVI AGUILAR MD Liver Fibrosis Pnl Reviewed date:12/28/2023 10:09:27 AM Interpretation: Performing Lab:[address] [address] Notes/Report: Liver Fibrosis Score 0.16 Liver Fibrosis [...] a>0.62 and a<=1.00 : A3 (severe activity) UTV-Iodpa-8-Macroglobulin 158 106-279 mg/dL FIB-Haptoglobin 251 43-212 mg/dL FIB-Apolipoprotein A1 134 94-176 mg/dL FIB-Total Bilirubin 0.5 0.2-1.2 mg/dL FIB-GGT 13 3-70 U/L FIB-ALT 12 9-46 U/L Reference ID [id number] Footnote SEE NOTE The reliability of results is dependent on compliance with the preanalytical and analytical conditions recommended by [employer]. The tests have to be deferred for: [...] The performance characteristics have been determined by [facility]. It has not been cleared or approved by the U.S. Food and Drug Administration. Performance characteristics refer to the analytical performance of the test. [employer], [employer], the associated logo, [employer] and all associated [employer] ravi are the registered trademarks of [employer]. All third republican ravi - (R) and (TM) - are the property of their respective owners. (C) 3507-3009 [employer]. All rights reserved. THIS TEST WAS PERFORMED AT: [facility] [address] [place] [address] OMAR CASTILLO MD,PHD,AJIT Complete Blood Count Auto Di ff Reviewed date:12/20/2023 08:00:01 AM Interpretation: Performing Lab:[facility], [address] [place] [address] Notes/Report: White Blood Count 8.3 4.8-10.8 X10*3/uL [...] Panel Reviewed date:12/21/2023 11:05:27 AM Interpretation: Performing Lab:[address] [address] Notes/Report: Bilirubin Total 0.7 0.0-1.0 mg/dL Bilirubin Direct 0.3 0.0-0.5 mg/dL Aspartate Amino Transferase 16 5-37 U/L Alanine Aminotransferase 15 0-40 U/L Total Protein 6.7 6.5-8.0 g/dL Albumin Level 3.7 3.5-5.0 g/dL Alkaline Phosphatase 78 39-117 U/L Basic Metabolic Panel Reviewed date:12/21/2023 11:05:35 AM Interpretation: Performing Lab:[address] [address] Notes/Report: Sodium 140 135-145 mmol/L Potassium 3.7 3.3-5.1 mmol/L Chloride 99 96-108 mmol/L Carbon Dioxide 31 22-29 mmol/L Anion Gap 14 12-20 Blood Urea Nitrogen 66 9-16 mg/dL Creatinine 2.03 0.5-1.4 mg/dL Estimated Glomerular Filt Rate 32 NOTE: For -Georgian individuals, multiply the result by 1.210. Chronic Kidney Disease: Estimated GFR < 60 mL/min/1.73m2 Severe Kidney Disease: Estimated GFR < 15 mL/min/1.73m2 Glucose Random 175 60-115 mg/dL Calcium 8.8 8.4-10.2 mg/dL B Type Natriuretic Peptide Reviewed date:12/21/2023 11:05:13 AM Interpretation: Performing Lab:[address] [address] Notes/Report: B Type Natriuretic Peptide 121 <100 pg/mL For those patients who are being treated with Natrecor (nesiritide, recombinant BNP), BNP testing should be performed at least two hours post treatment in order to ensure that only endogenous levels of BNP are detected. Lipase Reviewed date:12/20/2023 08:00:06 AM Interpretation: Performing Lab:[facility], [address] [place] [phone] Notes/Report: Lipase 26 8-78 U/L Carbohydrate Antigen 19-9 Reviewed date:12/28/2023 10:09:20 AM Interpretation: Performing Lab:[facility], [address] [place] [address] Notes/Report: Carbohydrate Antigen 19-9 41 <34 U/mL This test was performed using the Siemens chemiluminescent method. Values obtained from different assay methods cannot be used interchangeably. CA 19-9 levels, regardless of value, should not be interpreted as absolute evidence of the presence or absence of disease. THIS TEST WAS PERFORMED AT: [employer] [facility] [address] [place] [phone] LEVI AGUILAR MD REASON FOR REFERRAL Referring Provider First Name Guzman Referring Provider Last Name Javan Referring Provider Speciality Internal edicine Referred Organization [facility] Referred Provider Mayank Lange Jr Referred Address [address] [place] [phone], Referred Provider Specialty Gastroentero logy General Notes Celia Mckeon 024 01:22:35 PM EDT > faxed request to the [place] for authorization for visit whzelda Resendiz on 07-13-2023 at 4:15 p.m. Referral Priority Routine Referring Provider First Name Guzman Referring Provider Last Name Javan Referring Provider Speciality Internal edicine Referred Organization [facility] Referred Provider Mayank Lange Jr Referred Address [address] [place] [phone],[place] Referred Provider Specialty Gastroentero logy General Notes Celia Mckeon 024 03:35:52 PM EDT > [facility] the patient's visit with Dr. Lange on 12-18-2023 Referral Priority Routine Referring Provider First Name Guzman Referring Provider Last Name Javan Referring Provider Speciality Internal M edicine Referred Organization [facility] Referred Provider Mayank Lange Jr Referred Address [address] [place] [phone], Referred Provider Specialty Gastroenternikky hennessy General Notes Celia Mckeon 2024 03:30:23 PM >called pt and notified him to obtain a [facility] referral for his visit with Dr. Lange on 06-17-2024 Referral Priority Routine MEDICATIONS Medication SIG (Take, [...] malignant neoplasm of colon (Z12.11) Active confirmed 195810449 Problem Abnormal findings on diagnostic imaging of liver and biliary tract (R93.2) Active confirmed 329824457 Problem Choledocholithiasis (K80.50) Active confirmed 236309228 Problem Gallstones (K80.20) Active confirmed Ga llstones (764119024) Problem Diverticulosis of colon (K57.30) Active confirmed Diverticulosi s of colon (655377534) Problem Elevated CA 19-9 level (R97.8) Active confirmed [id number] VITAL SIGNS Temperature 98.3 degrees Fahrenheit 12/18/2023 Blood pressure diastolic 00 mm Hg 12/18/2023 Height 70 in 12/18/2023 Blood pressure systolic 000 mm Hg 12/18/2023 Weight 377 lbs 12/18/2023 BMI 54.09 kg/m2 12/18/2023 Encounters Encounter Location Date Provider Diagnosis [facility] [address] [place] [address] 07/13/2023 Mayank Lange Jr Choledocholithiasis K80.50 ; Abnormal contrast radiography of biliary tree R93.2 and Colon cancer screening Z12.11 [facility] [address] [place] [address] 12/18/2023 Mayank Lange Jr Abnormal findings on diagnostic imaging of liver and biliary tract R93.2 ; Elevated CA 19-9 level R97.8 and Encounter for screening for malignant neoplasm of colon Z12.11 [facility] [address] [place] [address] 07/05/[address] [facility] [address] [place] [address] 07/26/2023 Mayank Lange Jr Abnormal findings on diagnostic imaging of liver and biliary tract R93.2 [facility] [address] [place] [address] 08/04/2023 Mayank Lange Jr Abnormal findings on diagnostic imaging of liver and biliary tract R93.2 [facility] [address] [place] [address] 08/07/[address] [facility] [address] [place] [address] 09/07/[address] [facility] [address] [place] [address] 11/23/2023 Mayank Lange Jr Abnormal findings on diagnostic imaging of liver and biliary tract R93.2 [facility] [address] [place] [address] 11/29/[address] [facility] [address] [facility] [address] [place] [phone] 12/28/2023 Mayank Lange Jr ASSESSMENTS Encounter Date [...] 07/20/2012 Next Appt Details Provider Name:Mayank murphy Jr, 06/17/2024 10:20:00 AM, [address], [address], [place], [address], Insurance Providers Payer Name Payer Address Payer Phone Subscriber Number Group Number Insured Name Patient Relationship to Insured Coverage Start Date Coverage End Date [place] [employer] [address] [place] [phone] [id number] MARIANNE WALTON Self - patient is the [...]
== END ==
LOC: CF 05-10 09:41
PROVIDERS: PCP Internal Medicine; Visit Provider Internal Medicine Cardiovascular Disease
DX: R07.9 Chest pain, unspecified (principal); I50.812 Chronic right heart failure; I48.20 Chronic atrial fibrillation, unspecified; I50.32 Chronic diastolic (congestive) heart failure; Z99.89 Dependence on other enabling machines and devices
CPT/HCPCS: 93005; 99212

== ENCOUNTER 2024-05-10 09:42 | Outpatient (REF) | payer OTHER, SELFPAY ==
[2024-05-10 11:16] LABS: B Type Natriuretic Peptide 100 pg/mL (<100)
[2024-05-10 11:17] LABS: Anion Gap 15 (12-20); Blood Urea Nitrogen 80 mg/dL (9-16); Calcium 8.8 mg/dL (8.4-10.2); Carbon Dioxide 29 mmol/L (22-29); Chloride 98 mmol/L (96-108); Estimated Glomerular Filt Rate 31; Glucose Random 233 mg/dL (60-115); Potassium 3.5 mmol/L (3.3-5.1); Sodium 138 mmol/L (135-145)
[2024-05-10 11:50] LABS: Prostate Specific Antigen 0.42 ng/mL (<0.05-4.0)
== END 2024-05-10 09:43 | disposition home or self-care (01) ==
LOC: HO.LAB 09:42
PROVIDERS: Nurse Practitioner; Nurse Practitioner Family; PCP Internal Medicine; Visit Provider Internal Medicine Cardiovascular Disease
DX: N18.30 Chronic kidney disease, stage 3 unspecified (principal); I50.32 Chronic diastolic (congestive) heart failure; N40.1 Benign prostatic hyperplasia with lower urinary tract symptoms; R33.9 Retention of urine, unspecified; Z12.5 Encounter for screening for malignant neoplasm of prostate
CPT/HCPCS: 36415; 80048; 83880; 84153

== ENCOUNTER 2024-05-31 11:42 | Emergency (ER) | payer OTHER, SELFPAY ==
--- NOTE | ~2024-05-31 | XR_ITS ---
EXAMINATION: XR CHEST CLINICAL INFORMATION: sob COMPARISON: November 22, 2023. TECHNIQUE: 2 views of the chest were obtained. FINDINGS: No consolidation, pleural effusion or pneumothorax. Cardiomediastinal silhouette size is normal with a round cardiac apex. Calcified plaque thoracic aortic arch. Multilevel thoracic spondylosis. Osteopenia versus osteoporosis. XR/XR chest 2V IMPRESSION: No acute airspace disease. Stable chest. Electronically signed by: Erlin Longoria MD 05/31/2024 01:03 PM [facility]
--- NOTE | 2024-05-31 11:44 | ECG_ITS ---
Test Reason : PALPITATION Blood Pressure : */* mmHG Vent. Rate : 65 BPM Atrial Rate : * BPM P-R Int : * ms QRS Dur : 184 ms QT Int : 502 ms P-R-T Axes : * -79 50 degrees QTcB Int : 522 ms Atrial fibrillation Right bundle branch block Left anterior fascicular block Bifascicular block Abnormal ECG When compared with ECG of 22-Nov-2023 12:14, QRS duration has decreased Referred By: Stella Crow Electronically Signed By: Jerardo Rojas
--- NOTE | 2024-05-31 12:21 | ED_ITS ---
HPI - SOB/Dyspnea General Chief Complaint: Dyspnea Stated Complaint: SOB, heaviness in chest Related Data Home Medications ?Medication ?Instructions ?Recorded ?Confirmed cholecalciferol (vitamin D3) 50 50 mcg PO DAILY 11/03/20 05/08/24 mcg (2,000 unit) capsule tamsulosin 0.4 mg capsule 0.4 mg PO BEDTIME 11/03/20 05/08/24 cyanocobalamin (vitamin B-12) 100 200 mcg PO DAILY 05/02/22 05/08/24 mcg tablet rosuvastatin 40 mg tablet 40 mg PO BEDTIME 05/02/22 05/08/24 ascorbic acid (vitamin C) 1,000 mg 500 mg PO ONCE 11/13/23 05/08/24 tablet (Vitamin C) amlodipine 5 mg tablet 10 mg PO DAILY@1200 11/29/23 05/08/24 allopurinol 300 mg tablet 300 mg PO DAILY 05/08/24 05/08/24 insulin aspart U-100 100 unit/mL 0.12 unit subcut DAILY@1200 05/08/24 05/08/24 subcutaneous solution (Novolog U-100 Insulin aspart) insulin glargine 100 unit/mL (3 42 unit subcut BEDTIME@2100 05/08/24 05/08/24 mL) subcutaneous pen (Lantus Solostar U-100 Insulin) torsemide 20 mg tablet 80 mg PO DAILY 05/08/24 05/08/24 Previous Rx's ?Medication ?Instructions ?Recorded apixaban 5 mg tablet (Eliquis) 5 mg PO BID 30 days #60 tabs 03/26/20 metolazone 2.5 mg tablet 2.5 mg PO Q OTHER DAY PRN weight 03/22/24 gain #14 tabs potassium chloride 20 mEq 20 meq PO BID 90 days #180 tabs 04/29/24 tablet,extended release Allergies Allergy/AdvReac Type Severity Reaction Status Date / Time Penicillins AdvReac Intermediate HALLUCINATIONS, Verified 05/31/24 12: SWEATS PMFSH Past Medical History Medical History Abnormal CT of the abdomen Acute UTI Diabetes Morbid obesity Chronic atrial fibrillation History of ESBL E. 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 Hypertension Kidney disease Social History Social History Household Members: Spouse Housing: House Do you presently have visiting nurse or other home services: Yes ([employer] 3x/week) Alcohol intake: never Comment: pt refuses Patient Tobacco Use Status: Never used Tobacco Advance Directives: Yes Advance Directives on File: Yes Advance Directives Date on File: 05/16/22 Do you have a plan to hurt others: No Plan service: Yes Current occupational status: retired Physical Exam 2 Vital Signs: Vital Signs: Last Vital Signs Temp 97.9 F 05/31/24 12:23 Pulse 70 05/31/24 12:23 Resp 20 05/31/24 12:23 BP 102/32 L 05/31/24 12:23 Pulse Ox 100 05/31/24 12:23 O2 Del Method Room Air 05/31/24 12:23 BMI result Body Mass Index 55.1 Course Course Course Narrative: This is a Rapid Medical Exam performed in triage by Stella Crow PA-C. Full HPI, ROS and PE to be performed by primary ED provider. 73yo M w/PMHx CHF, CKD, DM, Chronic A.fib, presenting to the ED c/o SOB, chest heaviness & 14lb weight gait x6 days. Has been taking his Lasix. +LE pain/edema & orthopnea PE: +b/l LE nonpitting edema, diminished lung sounds bibasilar Plan: EKG, labs, CXR, viral testing Medical Decision Making Lab Data 05/31/24 13:44 05/31/24 13:44 Labs: Lab Results 05/31/24 Range/Units 13:44 WBC 10.4 (4.8-10.8) X10*3/uL RBC 4.24 L (4.60-5.80) X10*6/uL Hgb 12.9 L (14.0-18.0) g/dl Hct 39.2 L (42.0-52.0) % MCV 92.5 (80.0-98.0) fL MCH 30.4 (27.0-33.0) pg MCHC 32.9 (31.0-36.0) g/dl RDW 15.1 (11.0-16.0) % Plt Count 195 (160-400) X10*3/uL MPV 11.3 (9.4-12.4) fL Immature Gran % (Auto) 1.1 H (0.0-0.4) % Neut % (Auto) 81.7 H (45-73) % Lymph % (Auto) 7.7 L (20-40) % Lane % (Auto) 6.0 (2-11) % Eos % (Auto) 3.1 (0-4) % Baso % (Auto) 0.4 (0-2) % Lymph # (Auto) 0.8 L (1.2-4.9) X10*3/uL Lane # (Auto) 0.6 (0.1-1.2) X10*3/uL Eos # (Auto) 0.3 (0.0-0.4) X10*3/uL Baso # (Auto) 0.0 (0.0-0.2) X10*3/uL Abs Immat Gran (auto) 0.11 H (0.00-0.03) X10*3/uL Absolute Neuts (auto) 8.5 H (2.0-8.3) x10*3/uL Absolute Nucleated RBC 0.000 (0.0-0.012) X10*3/uL Nucleated RBC % (auto) 0.0 (0.0-0.2) /100WBC PT 15.1 H (10.9-12.4) SEC INR 1.3 H (0.9-1.1) Sodium 136 (135-145) mmol/L Potassium 4.2 (3.3-5.1) mmol/L Chloride 98 (96-108) mmol/L Carbon Dioxide 25 (22-29) mmol/L Anion Gap 17 (12-20) BUN 113 H (9-16) mg/dL Creatinine 2.87 H (0.5-1.4) mg/dL Estim Creat Clear Calc 36.7 Estimated GFR 22 Random Glucose 222 H (60-115) mg/dL Calcium 8.3 L (8.4-10.2) mg/dL Magnesium 2.5 (1.6-2.6) mg/dL Total Bilirubin 0.6 (0.0-1.0) mg/dL Direct Bilirubin 0.2 (0.0-0.5) mg/dL AST 19 (5-37) U/L ALT 10 (0-40) U/L Alkaline Phosphatase 79 (39-117) U/L Troponin I High Sens 26.3 (<3.5-35.0) ng/L B-Natriuretic Peptide 80 (<100) pg/mL Total Protein 7.0 (6.5-8.0) g/dL Albumin 3.4 L (3.5-5.0) g/dL Influenza Type A (PCR) NEGATIVE (Negative) Influenza Type B (PCR) NEGATIVE (Negative) RSV RNA Qual (PCR) NEGATIVE (Negative) SARS-CoV-2 RNA (RT-PCR) NEGATIVE (Negative) Discharge Plan Discharge Clinical Impression: Dyspnea Patient Disposition: Left W/O Completing Treatment Prescriptions: No Action Eliquis 5 mg tablet 5 mg PO BID 30 Days Qty: 60 5RF metolazone 2.5 mg tablet 2.5 mg PO Q OTHER DAY PRN (Reason: weight gain) Qty: 14 5RF potassium chloride 20 mEq tablet extended release 20 meq PO BID 90 Days Qty: 180 0RF tamsulosin 0.4 mg Capsule 0.4 mg PO BEDTIME cholecalciferol (vitamin D3) 50 mcg (2,000 unit) Capsule 50 mcg PO DAILY ascorbic acid (vitamin C) [Vitamin C] 1,000 mg tablet 500 mg PO ONCE allopurinol 300 mg tablet 300 mg PO DAILY insulin aspart U-100 [Novolog U-100 Insulin aspart] 100 unit/mL solution 0.12 unit SUBCUT DAILY@1200 cyanocobalamin (vitamin B-12) 100 mcg Tablet 200 mcg PO DAILY rosuvastatin 40 mg Tablet 40 mg PO BEDTIME insulin glargine [Lantus Solostar U-100 Insulin] 100 unit/mL (3 mL) insulin pen 42 unit SUBCUT BEDTIME@2100 amlodipine 5 mg tablet 10 mg PO DAILY@1200 torsemide 20 mg tablet 80 mg PO DAILY Rx Instructions: 2 am 1 noon Discharge Date/Time: 05/31/24 20:15
[2024-05-31 12:23] VITALS: BP 102/32; PULSE 70; RESP 20; TEMP 36.6; O2SAT 100; BMI 55.1
[2024-05-31 13:55] LABS: MANUAL DIFF FLAG NO
[2024-05-31 13:57] LABS: Basophils Percent Auto 0.4 % (0-2); Eosinophils Absolute Auto 0.3 X10*3/uL (0.0-0.4); Eosinophils Percent Auto 3.1 % (0-4); Hematocrit 39.2 % (42.0-52.0); Hemoglobin 12.9 g/dl (14.0-18.0); Imm Gran Abs Auto 0.11 X10*3/uL (0.00-0.03); Imm Gran Pct Auto 1.1 % (0.0-0.4); Lymphocytes Absolute Auto 0.8 X10*3/uL (1.2-4.9); Lymphocytes Percent Auto 7.7 % (20-40); Mean Corpuscular HGB Conc 32.9 g/dl (31.0-36.0); Mean Corpuscular Hemoglobin 30.4 pg (27.0-33.0); Mean Corpuscular Volume 92.5 fL (80.0-98.0); Mean Platelet Volume 11.3 fL (9.4-12.4); Monocytes Absolute Auto 0.6 X10*3/uL (0.1-1.2); Neutrophils Absolute Auto 8.5 x10*3/uL (2.0-8.3); Neutrophils Percent Auto 81.7 % (45-73); Platelet Count 195 X10*3/uL (160-400); Red Blood Count 4.24 X10*6/uL (4.60-5.80); Red Cell Distribution Width 15.1 % (11.0-16.0); White Blood Count 10.4 X10*3/uL (4.8-10.8)
[2024-05-31 14:02] LABS: INTERNATIONAL NORM RATIO 1.3 (0.9-1.1); Prothrombin Time 15.1 SEC (10.9-12.4)
[2024-05-31 14:13] LABS: Alanine Aminotransferase 10 U/L (0-40); Albumin Level 3.4 g/dL (3.5-5.0); Alkaline Phosphatase 79 U/L (39-117); Anion Gap 17 (12-20); Aspartate Amino Transferase 19 U/L (5-37); Bilirubin Direct 0.2 mg/dL (0.0-0.5); Bilirubin Total 0.6 mg/dL (0.0-1.0); Blood Urea Nitrogen 113 mg/dL (9-16); Calcium 8.3 mg/dL (8.4-10.2); Carbon Dioxide 25 mmol/L (22-29); Chloride 98 mmol/L (96-108); Creatinine Clr Calc Pharmacy 36.7; Estimated Glomerular Filt Rate 22; Glucose Random 222 mg/dL (60-115); Magnesium 2.5 mg/dL (1.6-2.6); Potassium 4.2 mmol/L (3.3-5.1); Sodium 136 mmol/L (135-145)
[2024-05-31 14:18] LABS: B Type Natriuretic Peptide 80 pg/mL (<100)
[2024-05-31 14:20] LABS: Troponin-I High Sensitivity 26.3 ng/L (<3.5-35.0)
[2024-05-31 14:33] LABS: Influenza A PCR NEGATIVE (Negative); Influenza B PCR NEGATIVE (Negative); Resp Syncy Virus RNA Qual PCR NEGATIVE (Negative); SARS COV2 PCR INHOUSE NEGATIVE (Negative)
--- NOTE | 2024-05-31 19:51 | PC.NURSE ---
no answer from WR at 194
== END 2024-05-31 20:15 | disposition left against medical advice (07) ==
LOC: HO.ED 20:12
PROVIDERS: Physician Assistant; Emergency Provider Emergency Medicine; PCP Internal Medicine
DX: R06.02 Shortness of breath (principal); R00.2 Palpitations; I48.91 Unspecified atrial fibrillation; Z03.818 Encounter for observation for suspected exposure to other biological agents ruled out; Z79.899 Other long term (current) drug therapy
CPT/HCPCS: 0241U; 71046; 80048; 80076; 83735; 83880; 84484; 85025; 85610; 93005; 99283

== ENCOUNTER → 2024-05-31 11:44 | Outpatient (BNV) | payer OTHER, SELFPAY | PROVIDERS: Emergency Provider Emergency Medicine; PCP Internal Medicine; Visit Provider Internal Medicine Cardiovascular Disease | DX: I45.2 Bifascicular block (principal); I48.91 Unspecified atrial fibrillation | CPT/HCPCS: 93010 ==

== ENCOUNTER → 2024-05-31 12:23 | Outpatient (BNV) | payer OTHER, SELFPAY | PROVIDERS: PCP Internal Medicine; Visit Provider Radiology Diagnostic Radiology | DX: R06.02 Shortness of breath (principal) | CPT/HCPCS: 71046 ==

== ENCOUNTER → 2024-06-10 09:43 | Outpatient (REF) | payer OTHER, SELFPAY ==
--- NOTE | 2024-06-10 09:47 | CA_ITS ---
Acquisition Time: 2024-06-10 10:31:34 Total Exercise Time: 00:02:00 Test Indications: CYNTHIA Medications: ALLOPURINOL APIXABAN Insulin Protocol: LEXISCAN Max HR: 108 BPM 73% of Pred: 147 BPM Max BP: 118/60 mmHG Max Work Load: 1.0 METS Pharmacological stress test with Lexiscan injection, while sitting, without anginal symptoms, with isolated PVCs, with normotensive response to injection, with nondiagnostic EKG for ischemia. In recovery he reported sob, nausea that was treated with Aminophylline 75mg IVP to reverse Lexsican with resolution of symptoms. Nuclear images pending. Test reviewed with Dr Ann. Referred By: Reji Bailey Electronically Signed By: ELEANOR ROY
--- OUTSIDE RECORDS SUMMARY | 2024-06-10 10:39 | XMS_ITS ---
Author Organization [facility] Address [address] [place] [address] Care Team Providers Care Principal Trainer Name Role Phone Javan RAMAN, Guzman Primary Care Provider Mayank Gandara Jr Unavailable [phone] Allergies Allergen (clinical drug ingredient) Drug/Non Drug Allergy documented on EMR Reaction Allergy Type Onset Date Status Penicillin Unknown Drug Allergy Active Results Component Value Reference Range Notes Liver Fibrosis Pnl Reviewed date:12/28/2023 10:09:27 AM Interpretation: Performing Lab:[facility], [address] [place] [id number] Notes/Report: Liver Fibrosis Score 0.16 Liver Fibrosis [...] a>0.62 and a<=1.00 : A3 (severe activity) UHH-Aypkw-3-Macroglobulin 158 106-279 mg/dL FIB-Haptoglobin 251 43-212 mg/dL FIB-Apolipoprotein A1 134 94-176 mg/dL FIB-Total Bilirubin 0.5 0.2-1.2 mg/dL FIB-GGT 13 3-70 U/L FIB-ALT 12 9-46 U/L Reference ID [id number] Footnote SEE NOTE The reliability of results is dependent on compliance with the preanalytical and analytical conditions recommended by [employer]. The tests have to be deferred for: [...] The performance characteristics have been determined by [facility]. It has not been cleared or approved by the U.S. Food and Drug Administration. Performance characteristics refer to the analytical performance of the test. [employer], [employer], the associated logo, [employer] and all associated [employer] ravi are the registered trademarks of [employer]. All third constitution party ravi - (R) and (TM) - are the property of their respective owners. (C) 7443-5037 [employer]. All rights reserved. THIS TEST WAS PERFORMED AT: [facility] [address] [place] [address] OMAR CASTILLO MD,PHD,AJIT REASON FOR VISIT Patient presents today for followup Medications Medication SIG (Take, Route, Frequency, Duration) Notes [...] Once a day for 30 day(s) Active Problems Problem Type SNOMED Code ICD Code Onset Dates Problem Status W/U Status Risk Notes Problem [id number] Elevated CA 19-9 level (R97.8) Active confirmed Problem [id number] Encounter for screening for malignant neoplasm of colon (Z12.11) Active confirmed Vital Signs Temperature 98.3 degrees Fahrenheit 12/18/19 24 Blood pressure systolic 000 mm Hg 12/18/19 24 Blood pressure diastolic 00 mm Hg 024 Height 70 in 12/18/2023 Weight 377 lbs 12/18/2023 BMI 54.09 kg/m2 12/18/2023 Encounters Encounter Location Date Provider Diagnosis [facility] [address] [place] [address] 12/18/2023 Mayank Lange Jr Abnormal findings on diagnostic imaging of liver and biliary tract R93.2 ; Elevated CA 19-9 level R97.8 and Encounter for screening for malignant neoplasm of colon Z12.11 Assessments Encounter Date Diagnosis (ICD Code) Assessment Notes Treatment Notes Treatment Clinical Notes Section Notes 12/18/2023 Abnormal findings on diagnostic imaging of liver and biliary tract (ICD-10 - R93.2) We reviewed his imaging in detail today which showed improvement in his biliary tree following ERCP. No evidence of pancreatic cancer has been identified by MRI imaging. We will continue to monitor his CA 19-9. He will have followup laboratory studies. Office visit followup will be in 6 months. His last colonoscopy was in October of 2012. He is due for followup. This was deferred for now given his recent hospitalization . 12/18/2023 Elevated CA 19-9 level (ICD-10 - R97.8) We reviewed his imaging in detail today which showed improvement in his biliary tree following ERCP. No evidence of pancreatic cancer has been identified by MRI imaging. We will continue to monitor his CA 19-9. He will have followup laboratory studies. Office visit followup will be in 6 months. His last colonoscopy was in October of 2012. He is due for followup. This was deferred for now given his recent hospitalization . 12/18/2023 Encounter for screening for malignant neoplasm of colon (ICD-10 - Z12.11) We reviewed his imaging in detail today which showed improvement in his biliary tree following ERCP. No evidence of pancreatic cancer has been identified by MRI imaging. We will continue to monitor his CA 19-9. He will have followup laboratory studies. Office visit followup will be in 6 months. His last colonoscopy was in October of 2012. He is due for followup. This was deferred for now given his recent hospitalization . Plan Of Treatment Pending Test Test Name Order Date LIVER PROFILE 12/18/2023 LIPASE 12/18/2023 CBC w/o DIFF 12/18/2023 CA 19-9 12/18/2023 Next Appt Details Follow Up: 6 Months, Reason: Provider Name:Mayank murphy Jr, 06/17/2024 10:20:00 AM, [address], [address], [place], [address], Progress Notes * GEOVANNI WALTONDOB: (73 yo M)Acc No.[id number]:12/18/2023 Progress Notes Patient:?GEOVANNI WALTON Provider:?Mayank Lange MD :1950???Age:73 Y???Sex:Male Ke e:12/18/2023 Address:[address] [place] [address] Pcp:Guzman Edouard MD Subjective: * Chief Complaints: * ???1. Patient presents today for followup. * HPI: ???New symptom(s):? Geovanni is a pleasant 73-year-old seen today in followup. He was last seen in July for followup of choledocholithiasis while hospitalized. This was treated with ERCP and sphincterotomy as well as stone extraction. He's had mild elevations of his CEA 19-9, most recently at a level of 51 and made through his primary care providers office. MR imaging in august showed no stricture and the common duct was 8 mm compared to 16 on his previous examination. We reviewed this today. Also noted was an adrenal nodule that he was advised to followup with his primary care provider for. ?He has not had any jaundice, epigastric or right upper quadrant pain, or pancreatitis symptoms. ?He was hospitalized at the end of November for 4 days with congestive heart failure, chronic diastolic heart failure, MARGOTH, and fatigue ([facility]). * Medical History:?Colonoscopy 10/10/12, hyperplastic polyp, ten-year followup, Atrial fibrillation, Morbid obesity, GERD, Insulin-dependent diabetes, Sleep apnea, Hypertension, Melanoma left eye, Nephrolithiasis, urinary tract infections, chronic renal insufficiency. * Surgical History:?tonsillect behzad , Gallstones, choledocholithiasis, ERCP 04/26 , Left leg vascular surgery 2021. * Hospitalization/Major Diagno stic Procedure:?Congestive heart failure 11/30/23. * Family History:?Father: dece ased.?Mother: .? patient denies family history of colon cancer or polyps. No family history of liver cancer. * Social History:?Tobacco Use:?Tobacco Use/Smoking?Are you a: nonsmoker.?Drugs/Alcohol:?Alcohol Screen?Points: 0, Interpretation: Negative.?Miscellaneous:?Marital status: . 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 * Medications:?Taking Bisacody l 5 MG Suppository 2 null as needed Rectal Once a day, Taking Senna Concentrate 8.6 MG Tablet 2 tablets at bedtime as needed Orally Once a day, Taking Polyethylene Glycol 3350 Liquid as directed , Taking Bethanechol Chloride 25 MG Tablet 1 tablet 1 hour before or 2 hours after meals Orally Three times a day, Taking Tamsulosin HCl 0.4 MG Capsule Extended Release 1 capsule Orally Once a day, Taking Rosuvastatin Calcium 40 MG Tablet 1 tablet Orally Once a day, Taking Methenamine Hippurate 1 GM Tablet 1 tablet Orally Twice a day, Taking NovoLOG 100 UNIT/ML Solution as directed Subcutaneous , Taking amLODIPine Besylate 10 MG Tablet 1 tablet Orally Once a day, Taking Allopurinol 300 MG Tablet 1 tablet Orally Once a day, Taking Torsemide 20 MG Tablet 1 tablet Orally Once a day, Taking Eliquis 5 MG Tablet 1 tablet Orally Twice a day, Taking Lantus SoloStar 100 UNIT/ML Solution Pen-injector as directed/36units Subcutaneous at hs, Taking Vitamin D , Taking Vitamin C , Taking Pantoprazole Sodium 40 MG Tablet Delayed Release TAKE 1 TABLET BY MOUTH EVERY DAY Oral , Taking Ozempic (0.25 or 0.5 MG/DOSE) 2 MG/1.5ML Solution Pen-injector as directed Subcutaneous , Discontinued Probiotic , Discontinued Cyanocobalamin , Discontinued Jardiance , Discontinued Cefuroxime Axetil 500 MG Tablet TAKE 1 TABLET BY MOUTH TWICE A DAY FOR 7 DAYS Oral , Medication List reviewed and reconciled with the patient * Allergies:?Penicillin. Objective: * Vitals:?Wt: 377 lbs, Ht: 70 in, BMI:54.09 Index, BP: 000/00 mm Hg, Temp: 98.3. * Examination: ???General Examination: ???On examination today, he appears well. Skin is anicteric. Lungs are clear. Heart shows regular rate and rhythm. Abdomen is soft without focal masses or tenderness. Extremities are without edema. Assessment: * Assessment: 1.?Abnormal findings on diag nostic imaging of liver and biliary tract - R93.2 (Primary)?2.?Elevated CA 19-9 level - R97.8?3.?Encounter for screening for malignant neoplasm of colon - Z12.11? We reviewed his imaging in d etail today which showed improvement in his biliary tree following ERCP. No evidence of pancreatic cancer has been identified by MRI imaging. We will continue to monitor his CA 19-9. He will have followup laboratory studies. Office visit followup will be in 6 months. His last colonoscopy was in October of 2012. He is due for followup. This was deferred for now given his recent hospitalization. Plan: * Treatment: ? Value Reference Range ?Liver Fibrosis Score 0.16 - * ?Liver Fibrosis Stage F0 - * ?Liver Fibrosis Interpretation SEE NOTE - * ?Nec Inflam Act Score 0.03 - * ?Nec Inflam Act Grade A0 - * ?Nec Inflam Act Interpretation SEE NOTE - * ?VJN-Qlizs-4-Macroglobulin 158 106-279 - mg/dL * ?FIB-Haptoglobin 251 A 43-212 - mg/dL * ?FIB-Apolipoprotein A1 134 9 4-176 - mg/dL * ?FIB-Total Bilirubin 0.5 0.2 -1.2 - mg/dL * ?FIB-GGT 13 3-70 - U/L * ?FIB-ALT 12 9-46 - U/L * ?Reference ID [id number] - * ?Footnote SEE NOTE - * Procedure Codes:?3017F COLOR ECTAL CA SCREEN DOC REV, G9903 Pt scrn tbco id as non user, G9744 PATIENT NOT ELIG D/T ACTIVE DX HTN * Preventive Medicine:? ??Counseling:?Care goal follow-up plan:?Above Normal BMI Follow-up?Giving encouragement to exercise,?BMI management provided?Yes.? ??Screenings:?Fall Risk Screening?Fall Risk Assessment:?No falls in the past year.? * Follow Up:?6 Months * * Sign off status: Completed true * Provider:?Mayank Lange MD Date:?0 12/18/2023 Generated for Ulises barrera/Sammi/uJstynitting on:?06/10/2024 10:39 AM EDT History and Physical Notes * HPI (History of Present Illness) Category Sub-Category Detail Notes Category Not es New symptom(s) Geovanni is a pleasant 73-year-old seen today in followup. He was last seen in July for followup of choledocholithiasis while hospitalized. This was treated with ERCP and sphincterotomy as well as stone extraction. He's had mild elevations of his CEA 19-9, most recently at a level of 51 and made through his primary care providers office. MR imaging in august showed no stricture and the common duct was 8 mm compared to 16 on his previous examination. We reviewed this today. Also noted was an adrenal nodule that he was advised to followup with his primary care provider for. He has not had any jaundice, epigastric or right upper quadrant pain, or pancreatitis symptoms. He was hospitalized at the end of November for 4 days with congestive heart failure, chronic diastolic heart failure, MARGOTH, and fatigue ([facility]). Examination Category Sub-Category Detail Notes Category Not es General Examination On exami nation today, he appears well. Skin is anicteric. Lungs are clear. Heart shows regular rate and rhythm. Abdomen is soft without focal masses or tenderness. Extremities are without edema.
--- OUTSIDE RECORDS SUMMARY | 2024-06-10 10:39 | XMS_ITS | Clinical Summary ---
Author Organization [facility] Facility Address [address] [place] [address] Care Team Providers Care Veterans' Counselor Name Role Phone Unavailable Primary Care Provider [...]
--- OUTSIDE RECORDS SUMMARY | 2024-06-10 10:40 | XMS_ITS ---
Author Organization [facility] Address [address] [place] [address] Care Team Providers Care Flooring Installer Name Role Phone Guzman Edouard MD Primary Care Provider Unavailab josey Lange Jr, Mayank Zhao REASON FOR VISIT labs Encounters Encounter Location Date Provider Diagnosis [facility] [address] [facility] [facility] [address] [place] [phone] 12/28/2023 Mayank Lange Jr Plan Of Treatment Next Appt Details Provider Name:Mayank murphy Jr, 06/17/2024 10:20:00 AM, [address], [address], [place], [address], Progress Notes * MARIANNE WALTONDOB: (73 yo M)Acc No.[id number]:12/28/2023 Patient:?WALTONMARIANNE Sanchez :1950???Age:73 Y???Sex:Male Address:[address] [place] [address] * true * Date:? Generated for Printi holly/Sammi/eTransmitting on:?06/10/2024 10:39 AM EDT
--- OUTSIDE RECORDS SUMMARY | 2024-06-10 10:40 | XMS_ITS ---
Author Organization [facility] Care Team Providers Care Wireless Operator Name Role Phone Narayan Sunshine Unavailable Unavailable Melanie Townsend Unavailable Unavailable Nayla Yeung Unavailable Unavailable Allergies and adverse reactions Code CodeSystem Substance Reaction Severity StartDate Concern Status 7984 RXNORM Penicillin Unknown 05/13/2022 active Care Team Name Role Address Phone Organization Dates Narayan Sunshine PCP [address], [address], [facility] (Office): : [facility] 05/13/2022 - 06/10/2022 Melanie Townsend Attending Physician [address] [place] [address], [id number], [facility] (Office): : [facility] 05/13/2022 - 06/10/2022 Nayla Yeung Attending Physician [address] [place] [address], [id number], [facility] (Office): [facility] 05/13/2022 - 06/10/2022 Immunizations Immunization Status Vaccine Details Vaccine Code CodeSystem Date Notes Influenza completed Influenza, split virus, trivalent, injectable, contains preservative 141 CVX created date: 05/13/2022 administere d date: 12/15/2021 Tetanus completed tetanus immune globulin 13 CVX created date: 05/13/2022 administere d date: 04/28/2017 PCV13 (Pneumococcal Conjugate)Vaccine completed pneumococcal conjugate vaccine, 13 valent 133 CVX created date: 05/13/2022 administere d date: 12/01/2015 PPSV23 (Previous Pneumococcal Polysaccharide)Va ccine completed pneumococcal polysaccharide vaccine, 23 valent 33 CVX created date: 05/13/2022 consent date: 05/13/2022 administere d date: 12/07/2016 SARS-COV-2 (COVID-19) completed SARS-COV-2 (COVID-19) vaccine, mRNA, spike protein, LNP, bivalent, preservative free, 50 mcg/0.5 mL or 25 mcg/0.25 mL dose Mfg: Moderna Step 2 of Multi-step with next step required 229 CVX created date: 05/13/2022 administere d date: 07/11/2020 SARS-COV-2 (COVID-19) completed SARS-COV-2 (COVID-19) vaccine, mRNA, spike protein, LNP, bivalent, preservative free, 50 mcg/0.5 mL or 25 mcg/0.25 mL dose Mfg: Moderna Step 1 of Multi-step with next step required 229 CVX created date: 05/13/2022 administere d date: 06/13/2020 Moderna Covid-19 Booster (SARS-COV-2) vaccine completed SARS-COV-2 (COVID-19) vaccine, mRNA, spike protein, LNP, preservative free, 100 mcg/0.5mL dose or 50 mcg/0.25mL dose 207 CVX created date: 05/13/2022 administere d date: 03/06/2021 Goji Covid-19 Bi-valent Solution completed SARS-COV-2 (COVID-19) vaccine, mRNA, spike protein, LNP, bivalent, preservative free, 30 mcg/0.3 mL dose, lalit-sucrose formulation lotNumber: [id number] Mfg: Pzifer Given 0.3 ml Left Deltoid intramuscularly 300 CVX created date: 05/20/2022 consent date: 05/20/2022 administere d date: 05/20/2022 Mental Status Section Date Assessment Total Score Description 06/10/2022 BIMS 14 cognitively int act CAM 0 No delirium ind icated PHQ-9 01 minimal depress ion 06/01/2022 BIMS 14 cognitively int act PHQ-9 00 Problems Problem # Description Date of onset Resolved Date Code CodeSystem Concern Status 1 COVID-19 06/01/[address] active 2 ESSENTIAL (PRIMARY) HYPERTENSION 05/13/[address] active 3 EXTENDED SPECTRUM BETA LACTAMASE (ESBL) RESISTANCE 05/13/[address] active 4 GOUT, UNSPECIFIED 05/13/[address] active 5 MORBID (SEVERE) OBESITY DUE TO EXCESS CALORIES 05/13/[address] active 6 MUSCLE WASTING AND ATROPHY, NOT ELSEWHERE CLASSIFIED, LEFT LOWER LEG 05/13/[address] active 7 MUSCLE WASTING AND ATROPHY, NOT ELSEWHERE CLASSIFIED, RIGHT LOWER LEG 05/13/[address] active 8 TYPE 2 DIABETES MELLITUS WITHOUT COMPLICATIONS 05/13/[address] active 9 UNSPECIFIED ABNORMALITIES OF GAIT AND MOBILITY 05/13/[address] active 10 UNSPECIFIED ATRIAL FIBRILLATION 05/13/[address] active 11 UNSPECIFIED PROTEIN-CALORIE MALNUTRITION 05/13/[address] active Reason for Referral No Reasons for Referral Entered Social History Social History Observation Description Start Date End Date Code Code System Current Smoking Status Tobacco smoking consumption unknown 340019789 SNOMED CT Sex Assigned At Male 1950 57878-1 [facility] Vital Signs Code Code System Vitals Name Values and Units Timing Information 19308-6 [facility] O2 % BldC Oximetry Value=96.0 Units= % 06/10/2022 02007-8 LOINC Pain Level Value=0.0 06/10/2022 9279-1 LOINC Respiratory Rate Value=18.0 Units=/m in 06/10/2022 8462-4 LOINC Blood Pressure-Diastolic Value=75 Un its=mmHg 06/10/2022 8480-6 LOINC Blood Pressure-Systolic Akywt=732 Un its=mmHg 06/10/2022 8310-5 LOINC Body Temperature Value=97.6 Units=?? F 06/10/2022 8867-4 LOINC Heart rate Value=70.0 Units=/min 01/2023 2339-0 LOINC Blood Sugar Huqha=686.0 Units=mg/dL 06/10/2022 96266-1 [facility] Weight Estbo=708.5 Units=Lbs 11/2022 8302-2 [facility] Height Value=69.0 Units=Inches 05/18/2022
--- OUTSIDE RECORDS SUMMARY | 2024-06-10 10:40 | XMS_ITS | Patient Health Record ---
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 Role Phone Guzman Edouard MD Primary Care Provider Mayank Gandara Jr Unavailable Allergies Allergen (clinical drug ingredient) Drug/Non Drug Allergy documented on EMR Reaction Allergy Type Onset Date Status Penicillin Unknown Drug Allergy Active Results Component Value Reference Range Notes Liver Fibrosis Pnl Reviewed date:12/28/2023 10:09:27 AM Interpretation: Performing Lab:[facility], [address] [place] [phone] Notes/Report: Liver Fibrosis Score 0.16 Liver Fibrosis [...] a>0.62 and a<=1.00 : A3 (severe activity) KFM-Ynefh-8-Macroglobulin 158 106-279 mg/dL FIB-Haptoglobin 251 43-212 mg/dL FIB-Apolipoprotein A1 134 94-176 mg/dL FIB-Total Bilirubin 0.5 0.2-1.2 mg/dL FIB-GGT 13 3-70 U/L FIB-ALT 12 9-46 U/L Reference ID [id number] Footnote SEE NOTE The reliability of results is dependent on compliance with the preanalytical and analytical conditions recommended by [facility]. The tests have to be deferred for: [...] The performance characteristics have been determined by [facility]. It has not been cleared or approved by the U.S. Food and Drug Administration. Performance characteristics refer to the analytical performance of the test. [employer], the associated logo, [employer] and all associated [employer] ravi are the registered trademarks of [employer]. All third democrat ravi - (R) and (TM) - are the property of their respective owners. (C) [id number] [employer]. All rights reserved. THIS TEST WAS PERFORMED AT: [facility] [address] [place] [address] OMAR CASTILLO MD,PHD,AJIT Complete Blood Count no Diff Reviewed date:07/26/2023 08:52:47 AM Interpretation: Performing Lab:[facility], [address] [place] [phone] Notes/Report: White Blood Count 7.1 4.8-10.8 X10*3/uL [...] Panel Reviewed date:07/26/2023 08:52:36 AM Interpretation: Performing Lab:[facility], [address] [place] [phone] Notes/Report: Bilirubin Total 0.5 0.0-1.0 mg/dL Bilirubin Direct 0.3 0.0-0.5 mg/dL Aspartate Amino Transferase 15 5-37 U/L Alanine Aminotransferase 13 0-40 U/L Total Protein 7.1 6.5-8.0 g/dL Albumin Level 3.8 3.5-5.0 g/dL Alkaline Phosphatase 100 39-117 U/L Lipase Reviewed date:07/26/2023 08:52:30 AM Interpretation: Performing Lab:[facility], [address] [place] [phone] Notes/Report: Lipase 26 8-78 U/L Carbohydrate Antigen 19-9 Reviewed date:07/26/2023 08:52:22 AM Interpretation: Performing Lab:[facility], [address] [place] [phone] Notes/Report: Carbohydrate Antigen 19-9 36 <34 U/mL This test was performed using the Siemens chemiluminescent method. Values obtained from different assay methods cannot be used interchangeably. CA 19-9 levels, regardless of value, should not be interpreted as absolute evidence of the presence or absence of disease. THIS TEST WAS PERFORMED AT: [facility] [address] [place] [phone] LEVI AGUILAR MD Complete Blood Count Auto Di ff Reviewed date:12/20/2023 08:00:01 AM Interpretation: Performing Lab:[facility], [address] [place] [phone] Notes/Report: White Blood Count 8.3 4.8-10.8 X10*3/uL [...] Panel Reviewed date:12/21/2023 11:05:27 AM Interpretation: Performing Lab:[address] [phone] Notes/Report: Bilirubin Total 0.7 0.0-1.0 mg/dL Bilirubin Direct 0.3 0.0-0.5 mg/dL Aspartate Amino Transferase 16 5-37 U/L Alanine Aminotransferase 15 0-40 U/L Total Protein 6.7 6.5-8.0 g/dL Albumin Level 3.7 3.5-5.0 g/dL Alkaline Phosphatase 78 39-117 U/L Basic Metabolic Panel Reviewed date:12/21/2023 11:05:35 AM Interpretation: Performing Lab:[address] [phone] Notes/Report: Sodium 140 135-145 mmol/L Potassium 3.7 3.3-5.1 mmol/L Chloride 99 96-108 mmol/L Carbon Dioxide 31 22-29 mmol/L Anion Gap 14 12-20 Blood Urea Nitrogen 66 9-16 mg/dL Creatinine 2.03 0.5-1.4 mg/dL Estimated Glomerular Filt Rate 32 NOTE: For -Mexican individuals, multiply the result by 1.210. Chronic Kidney Disease: Estimated GFR < 60 mL/min/1.73m2 Severe Kidney Disease: Estimated GFR < 15 mL/min/1.73m2 Glucose Random 175 60-115 mg/dL Calcium 8.8 8.4-10.2 mg/dL B Type Natriuretic Peptide Reviewed date:12/21/2023 11:05:13 AM Interpretation: Performing Lab:[address] [phone] Notes/Report: B Type Natriuretic Peptide 121 <100 pg/mL For those patients who are being treated with Natrecor (nesiritide, recombinant BNP), BNP testing should be performed at least two hours post treatment in order to ensure that only endogenous levels of BNP are detected. Lipase Reviewed date:12/20/2023 08:00:06 AM Interpretation: Performing Lab:[facility], [address] [place] [phone] Notes/Report: Lipase 26 8-78 U/L Carbohydrate Antigen 19-9 Reviewed date:12/28/2023 10:09:20 AM Interpretation: Performing Lab:[facility], [address] [place] [address] Notes/Report: Carbohydrate Antigen 19-9 41 <34 U/mL This test was performed using the Siemens chemiluminescent method. Values obtained from different assay methods cannot be used interchangeably. CA 19-9 levels, regardless of value, should not be interpreted as absolute evidence of the presence or absence of disease. THIS TEST WAS PERFORMED AT: [facility] [address] [place] [phone] LEVI AGUILAR MD Reason For Referral Referring Provider First Name Guzman Referring Provider Last Name Javan Referring Provider Speciality Internal edicine Referred Organization [facility] Referred Provider Mayank Lange Jr Referred Address [address] [place] [phone], Referred Provider Specialty Gastroentero logy General Notes Celia Mckeon 024 01:22:35 PM EDT > faxed request to the [place] for authorization for visit whzelda Resendiz on 07-13-2023 at 4:15 p.m. Referral Priority Routine Referring Provider First Name Guzman Referring Provider Last Name Javan Referring Provider Speciality Internal edicine Referred Organization [facility] Referred Provider Mayank Lange Jr Referred Address [address] [place] [phone],[place] Referred Provider Specialty Gastroentero logy General Notes Celia Mckeon 024 03:35:52 PM EDT > [facility] for the patient's visit with Dr. Lange on 12-18-2023 Referral Priority Routine Referring Provider First Name Guzman Referring Provider Last Name Javan Referring Provider Speciality Internal M edicine Referred Organization [facility] Referred Provider Mayank Lange Jr Referred Address [address] [place] [phone], Referred Provider Specialty Gastroenternikky hennessy General Notes Celia Mckeon 2024 03:30:23 PM >called pt and notified him to obtain a va referral for his visit with Dr. Lange on 06-17-2024 Referral Priority Routine Medications Medication SIG (Take, Route, Frequency, Duration) [...] Twice a day Active Vitamin C Active Immunizations Vaccine Route Administration Date Status Comme nts Influenza Unknown 01/24/2023 Administered Problems Problem Type SNOMED Code ICD Code Onset Dates Problem Status W/U Status Risk Notes Problem 741267198 Encounter for screening for malignant neoplasm of colon (Z12.11) Active confirmed Problem 547895604 Abnormal finding s on diagnostic imaging of liver and biliary tract (R93.2) Active confirmed Problem 750156629 Choledocholithia sis (K80.50) Active confirmed Problem Gallstones (539402194) Gallstones (K80.20) Active confirmed Problem Diverticulosis of colon (320615757) Diverticulosis of colon (K57.30) Active confirmed Problem 55065613954622973 Elevated CA 19 -9 level (R97.8) Active confirmed Vital Signs Temperature 98.3 degrees Fahrenheit 12/18/2023 Blood pressure diastolic 00 mm Hg 12/18/2023 Height 70 in 12/18/2023 Blood pressure systolic 000 mm Hg 12/18/2023 Weight 377 lbs 12/18/2023 BMI 54.09 kg/m2 12/18/2023 Encounters Encounter Location Date Provider Diagnosis [facility] [address] [facility] [place] [address] 07/13/2023 Mayank Lange Jr Choledocholithiasis K80.50 ; Abnormal contrast radiography of biliary tree R93.2 and Colon cancer screening Z12.11 [facility] [address] [facility] [place] [address] 12/18/2023 Mayank Lange Jr Abnormal findings on diagnostic imaging of liver and biliary tract R93.2 ; Elevated CA 19-9 level R97.8 and Encounter for screening for malignant neoplasm of colon Z12.11 [facility] [address] [facility] [place] [address] 07/05/2023 Mayank Lange Jr [facility] [address] [facility] [place] [address] 07/26/2023 Mayank Lange Jr Abnormal findings on diagnostic imaging of liver and biliary tract R93.2 [facility] [address] [facility] [place] [address] 08/04/2023 Mayank Lange Jr Abnormal findings on diagnostic imaging of liver and biliary tract R93.2 [facility] [address] [facility] [place] [address] 08/07/2023 Mayank Lange Jr [facility] [address] [facility] [place] [address] 09/07/2023 Mayank Lange Jr [facility] [address] [facility] [place] [address] 11/23/2023 Mayank Lange Jr Abnormal findings on diagnostic imaging of liver and biliary tract R93.2 [facility] [address] [facility] [place] [address] 11/29/2023 Mayank Lange Jr [facility] [address] [place] [address] 12/28/2023 Mayank Lange Jr Assessments Encounter Date Diagnosis (ICD Code) Assessment Notes Treatment Notes Treatment Clinical Notes Section Notes 07/13/2023 Choledocholithiasis (ICD-10 - K80.50) Gastroesophageal reflux disease material was printed We reviewed his hospitalizat ion, procedure Notes, and imaging studies in great detail today. We discussed in my opinion there is no stricture in the distal bile duct based on the findings at [facility]. We will arrange followup laboratory testing and imaging. Colon cancer screening we will discuss at his followup visit 07/13/2023 Abnormal contrast radiography of biliary tree (ICD-10 - R93.2) We reviewed his hospitalizat ion, procedure Notes, and imaging studies in great detail today. We discussed in my opinion there is no stricture in the distal bile duct based on the findings at [facility]. We will arrange followup laboratory testing and imaging. Colon cancer screening we will discuss at his followup visit 12/18/2023 Abnormal findings on diagnostic imaging of [...] was deferred for now given his recent hospitalizat ion. 12/18/2023 Elevated CA 19-9 level (ICD-10 - [...] was deferred for now given his recent hospitalizat ion. 07/26/2023 Abnormal findings on diagnostic imaging of liver and biliary tract (ICD-10 - R93.2) 08/04/2023 Abnormal findings on diagnostic imaging of liver and biliary tract (ICD-10 - R93.2) 11/23/2023 Abnormal findings on diagnostic imaging of liver and biliary tract (ICD-10 - R93.2) 07/13/2023 Colon cancer screening (ICD-10 - Z12.11) We reviewed his hospitalizat ion, procedure Notes, and imaging studies in great detail today. We discussed in my opinion there is no stricture in the distal bile duct based on the findings at [facility]. We will arrange followup laboratory testing and imaging. Colon cancer screening we will discuss at his followup visit 12/18/2023 Encounter for screening for malignant neoplasm [...] was deferred for now given his recent hospitalizat ion. Plan Of Treatment Pending Test Test Name Order Date LIVER PROFILE 12/18/2023 LIVER PROFILE 07/13/2023 LIVER PROFILE 11/23/2023 LIPASE 12/18/2023 LIPASE 07/13/2023 LIPASE 11/23/2023 CBC w/o DIFF 12/18/2023 CBC w/o DIFF 07/13/2023 CBC w/o DIFF 11/23/2023 CA 19-9 11/23/2023 CA 19-9 12/18/2023 CA 19-9 07/13/2023 MRI ABD NO CONTRAST ([facility]) 08/04/2023 MRI ABD W&WO CONTRAST 07/26/2023 Liver Fibrosis Pnl 11/23/2023 Transglutaminase Ab IgG 05/07/2022 Future Test Test Name Order Date COLONOSCOPY 07/20/2012 Next Appt Details Provider Name:Mayank murphy Jr, 06/17/2024 10:20:00 AM, [address] [place] [address], [address], [place], [address], Insurance Providers Payer Name Payer Address Payer Phone Subscriber Number Group Number Insured Name Patient Relationship to Insured Coverage Start Date Coverage End Date [facility] [employer] [address] [place] [id number] MARIANNE WALTON Self - patient is the insured Medical (General) History Medical History History ICD Code Colonoscopy 10/10/12, hyperplastic polyp, ten-year followup Atrial fibrillation Morbid obesity GERD Insulin-dependent diabetes sleep apnea Hypertension melanoma left eye Nephrolithiasis, urinary tract infection s, chronic renal insufficiency Surgical History Surgery Date(Month/Year) tonsillectomy Gallstones, choledocholithiasis, [facility] Left leg vascular surgery 2021 Hospitalization History Reason Date(Month/Year) Congestive heart failure 11/30/23
== END ==
LOC: HO.CARD 09:43
PROVIDERS: PCP Internal Medicine; Visit Provider Internal Medicine Cardiovascular Disease
DX: I50.32 Chronic diastolic (congestive) heart failure (principal)
CPT/HCPCS: 93017; J0280; J2785

== ENCOUNTER → 2024-06-10 09:47 | Outpatient (BNV) | payer OTHER, SELFPAY | PROVIDERS: PCP Internal Medicine; Visit Provider Nurse Practitioner Family | DX: I49.3 Ventricular premature depolarization (principal); R06.02 Shortness of breath | CPT/HCPCS: 78452; 93016; 93018 ==

== ENCOUNTER 2024-07-16 06:50 | Day surgery (SDC) | payer OTHER, SELFPAY ==
[2024-07-12 10:08] VITALS: BMI 53.9
--- OUTSIDE RECORDS SUMMARY | 2024-07-12 14:12 | XMS_ITS | Clinical Summary ---
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
[2024-07-16] MEDS: Lactated Ringers 1,000 ML 80 ML IVCONT (07:22)
--- NOTE | 2024-07-16 07:31 | P.CONAN_ITS ---
HPI - Anesthesia Eval Consult details Narrative: 73 yo male patient for Colonoscopy [facility] Active Problems Active Problems: All Active Problems (Updated 07/12/24 @ 10:31 by Tuyet Tejada RN) Exertional chest pain (Acute) Fistula (Acute) Incomplete emptying of bladder due to benign prostatic hyperplasia (Acute) Complicated urinary tract infection (Acute) Recurrent urinary tract infection (Acute) CKD (chronic kidney disease) stage 3, GFR 30-59 ml/min (Acute) Chronic right heart failure (Acute) Chronic heart failure with preserved ejection fraction (Acute) Preoperative cardiovascular examination (Acute) Acute UTI (Acute) Acute on chronic kidney failure (Acute) Heart failure with preserved ejection fraction (Acute) CHF (congestive heart failure) (Acute) Infection due to ESBL-producing Escherichia coli (Acute) Osteomyelitis (Acute) Lymphedema (Acute) Varicose veins of right lower extremity with inflammation (Acute) Diabetes (Acute) Kidney disease (Acute) Hypertension (Acute) Chronic atrial fibrillation (Acute) ARIEL. Uses CPAP Past Medical History Medical History ARIEL (obstructive sleep apnea) CHF (congestive heart failure) Abnormal CT of the abdomen Morbid obesity Chronic atrial fibrillation History of ESBL E. 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 Hypertension Diabetes Kidney disease Family History Family history of problems with anesthesia: No Surgical History Surgical History History of surgery on lower extremity Hx of tonsillectomy H/O colonoscopy S/P ERCP History of Problems with Anesthesia: No Social History Social History (Updated 07/16/24 @ 08:09 by Christiana Jefferson MD) Household Members: Spouse Housing: House Are you a primary respiratory care specialist to a significant other at home: No Do you presently have visiting nurse or other home services: Yes (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 STUDIES PROFESSOR 3x/week) Alcohol intake: never Comment: pt refuses Patient Tobacco Use Status: Former Tobacco user Advance Directives Date on File: 05/16/22 service: Yes Current occupational status: retired Meds Allergies Allergy/AdvReac Type Severity Reaction Status Date / Time Penicillins AdvReac Intermediate HALLUCINATIONS, Verified 07/16/24 07:37 SWEATS Active Medications: Current Medications Lactated Ringer's (Lr) 1,000 mls @ 80 mls/hr IVCONT .[id number] DALTON Last Admin: 07/16/24 07:22 Dose: 80 mls/hr Home Medications ?Medication ?Instructions ?Recorded ?Confirmed ?Last Taken ?Type cholecalciferol (vitamin D3) 50 50 mcg PO DAILY 11/03/20 07/12/24 03/30/23 History mcg (2,000 unit) capsule tamsulosin 0.4 mg capsule 0.4 mg PO BEDTIME 11/03/20 07/12/24 03/29/23 History cyanocobalamin (vitamin B-12) 100 200 mcg PO DAILY 05/02/22 07/12/24 03/30/23 History mcg tablet rosuvastatin 40 mg tablet 40 mg PO BEDTIME 05/02/22 07/12/24 03/29/23 History ascorbic acid (vitamin C) 1,000 mg 500 mg PO ONCE 11/13/23 07/12/24 Unknown History tablet (Vitamin C) amlodipine 5 mg tablet 10 mg PO DAILY@1200 11/29/23 07/12/24 Unknown History allopurinol 300 mg tablet 300 mg PO DAILY 05/08/24 07/12/24 Unknown History insulin aspart U-100 100 unit/mL 0.12 unit subcut DAILY@1200 05/08/24 07/12/24 Unknown History subcutaneous solution (Novolog U-100 Insulin aspart) insulin glargine 100 unit/mL (3 42 unit subcut BEDTIME@2100 05/08/24 07/12/24 Unknown History mL) subcutaneous pen (Lantus Solostar U-100 Insulin) torsemide 20 mg tablet 80 mg PO DAILY 05/08/24 07/12/24 Unknown History Exam Height,Weight and Vital Signs: Height 5 ft 10 in Weight 170.551 kg Vital Signs Temp Pulse Resp BP Pulse Ox O2 Del Method 07/16/24 07:34 98.3 F 74 18 122/64 98 Room Air Airway Mallampati Class: III TM Dist: >3cm Neck ROM: Full Loose/Missing/Broken Teeth: Yes (Missing several teeth. Denies broken or loose teeth) Heart: Irregular Lungs: Bilateral wheezes. Wheezes still present post respiratory treatment Assessment and Plan Assessment Anesthesia Assessment: Anesthesia Plan Discussed and Chart Reviewed Final Anesthetic Review Family History of Problems with Anesthesia: No History of Problems with Anesthesia: No NPO: Yes ASA Class: III Final Preanesthetic Review: No Changes in Pt Med Stat, Meds/Allgs Chart Reviewed, Consent Obtained/Reviewed and Anes Risks/Benef Reviewed Patient Risk: Intermediate Procedure Risk: Low Assessment/Block/Sedation in SS: Assess/Block/Sedation-SS Anesthetic Plan Anesthetic Plan: GA and Regional Block Disposition: Standard PACU
[2024-07-16 07:34] VITALS: BP 122/64; PULSE 74; RESP 18; TEMP 36.8; O2SAT 98
[2024-07-16] MEDS: Albuterol Sulfate (0.083%) 2.5 MG/3 ML VIAL.NEB INHALE (07:40)
[2024-07-16 07:48] LABS: Glucose, Whole Blood 111 mg/dL (60-115)
--- NOTE | 2024-07-16 08:36 | MHC.SHP ---
Pre-Procedural Eval Section A - 24 Hr Update-Section A only Date of Service: 07/16/24 The patient is an INPATIENT: No Changes since office visit: No Cold of Flu in the past 2 weeks, No New Medical Problems, No Changes in Medication and No Patient answered all questions The patient has been examined within 24 hours of the surgical procedure. The History & Physical has been completed within 30 days and I have reviewed it.: Yes Section B - Complete if H&P > 30 days Chief Complaint: Encounter for screening for malignant neoplasm of Allergies: Allergies Allergy/AdvReac Type Severity Reaction Status Date / Time Penicillins AdvReac Intermediate HALLUCINATIONS, Verified 07/16/24 07:37 SWEATS Plan I have reviewed the history and physical and performed a pertinent physical examination on my patient. No changes have occurred unless specified. Time Spent With Patient Time: Total time managing care of this patient today ____ minutes.
[2024-07-16 09:35] VITALS: BP 113/55; PULSE 71; RESP 16; TEMP 36.6; O2SAT 99
[2024-07-16 09:40] VITALS: BP 105/43; PULSE 79; RESP 16; O2SAT 99
[2024-07-16 09:45] VITALS: BP 128/61; PULSE 72; RESP 18; O2SAT 99
[2024-07-16 09:50] VITALS: BP 118/49; PULSE 76; RESP 18; O2SAT 99
--- NOTE | 2024-07-16 09:50 | OP_ITS ---
DATE OF SERVICE: 07/16/2024 SURGEON: Mayank Lange MD INDICATIONS: Colon cancer screening. PREOPERATIVE DIAGNOSIS: POSTOPERATIVE DIAGNOSIS: PROCEDURE PERFORMED: Colonoscopy to the cecum with biopsy and snare polypectomy. ESTIMATED BLOOD LOSS: COMPLICATIONS: ANESTHESIA: Medications, anesthesia via laryngeal mask airway. ASSISTANTS: SPECIMENS: DESCRIPTION OF PROCEDURE: History and physical was performed. The risks and benefits of the procedure explained to the patient. Informed consent was obtained and the patient was placed in the left lateral decubitus position. The Olympus video colonoscope was introduced into the rectum after digital rectal exam was performed and was found to be normal. The scope was advanced to the cecum. The cecum was identified by transillumination, palpation, and identification of ileocecal valve. Examination was performed. The scope was removed. He tolerated the procedure well and was returned to recovery area in stable condition. FINDINGS: The terminal ileum was not examined. There was some stool limiting the sensitivity examination for detection of small polyps. Multiple polyps were identified. These were removed with a combination of biopsy forceps and cold snare, all were less than 10 mm. The polyps were located in the cecum, right colon, transverse colon, and 60 cm. There was extensive diverticulosis. There was no evidence of colitis or mass lesions. Retroflexed examination showed small internal hemorrhoids. IMPRESSION: Colon polyps. RECOMMENDATION: Follow up the biopsy results. MD TOM Gasca/LORI / [id number]
[2024-07-16 10:05] VITALS: BP 119/56; PULSE 76; RESP 18; TEMP 36.4; O2SAT 100
== END 2024-07-16 11:22 | disposition home or self-care (01) ==
PROVIDERS: PCP Internal Medicine; Visit Provider Internal Medicine Gastroenterology
PROC: 0DJD8ZZ Inspection of Lower Intestinal Tract, Via Natural or Artificial Opening Endoscopic (ICD-10-PCS; CPT 45378; principal; 2024-07-16 08:20)
DX: Z12.11 Encounter for screening for malignant neoplasm of colon (principal); D12.0 Benign neoplasm of cecum; D12.3 Benign neoplasm of transverse colon; K51.40 Inflammatory polyps of colon without complications; K63.5 Polyp of colon; K57.30 Diverticulosis of large intestine without perforation or abscess without bleeding; K64.8 Other hemorrhoids; K59.00 Constipation, unspecified; K21.9 Gastro-esophageal reflux disease without esophagitis; K80.50 Calculus of bile duct without cholangitis or cholecystitis without obstruction; I48.91 Unspecified atrial fibrillation; I10 Essential (primary) hypertension; E66.01 Morbid (severe) obesity due to excess calories; Z68.43 Body mass index [BMI] 50.0-59.9, adult; G47.33 Obstructive sleep apnea (adult) (pediatric); R97.8 Other abnormal tumor markers; E11.9 Type 2 diabetes mellitus without complications; Z79.4 Long term (current) use of insulin; Z79.899 Other long term (current) drug therapy; Z90.49 Acquired absence of other specified parts of digestive tract; Z98.890 Other specified postprocedural states
CPT/HCPCS: 45385; 45380; 82947; 88305; J1596; J2003; J2704; J2765; J3010

== ENCOUNTER 2024-07-30 10:12 | Outpatient (REF) | payer OTHER, SELFPAY ==
[2024-07-30 10:44] LABS: Anion Gap 17 (12-20); Blood Urea Nitrogen 107 mg/dL (9-16); Calcium 8.4 mg/dL (8.4-10.2); Carbon Dioxide 22 mmol/L (22-29); Chloride 103 mmol/L (96-108); Estimated Glomerular Filt Rate 23; Glucose Random 108 mg/dL (60-115); Potassium 4.3 mmol/L (3.3-5.1); Sodium 138 mmol/L (135-145)
[2024-07-30 10:51] LABS: B Type Natriuretic Peptide 98 pg/mL (<100)
--- OUTSIDE RECORDS SUMMARY | 2024-07-30 11:39 | XMS_ITS | Clinical Summary ---
Author Organization [facility] Facility Address [address] [place] [address] Care Team Providers Care Patient Flow Coordinator Name Role Phone Unavailable Primary Care Provider [...] Ye ars (1 of 1 - PCV) 2000 Influenza Vaccine (Season Ended) 2024 Hepatitis B Vaccine Aged Out No longe r eligible based on patient's age to complete this topic Insurance Reg[employer] 1,2,3 (VACCN) CCN [employer] 1,2,3 (VACCN)
== END 2024-07-30 10:13 | disposition home or self-care (01) ==
LOC: HO.LAB 10:12
PROVIDERS: PCP Internal Medicine; Visit Provider Nurse Practitioner Family
DX: I50.32 Chronic diastolic (congestive) heart failure (principal)
CPT/HCPCS: 36415; 80048; 83880

== ENCOUNTER 2024-08-06 09:48 | Outpatient (AMB) | payer OTHER, SELFPAY ==
[2024-08-06 09:54] VITALS: BP 146/86; PULSE 100; BMI 54.8
--- NOTE | 2024-08-06 09:54 | MHC.OFFVIS ---
Vital Signs 08/06/24 09:54 Height 5 ft 10 in Weight 382 lb BMI 54.8 BP 146/86 H Blood Pressure Location Lt brachial Position Sitting Pulse 100 Intake Visit Reasons: 3m follow up/mel mibi/labs Intake Note: 3 month follow-up after mel mibi still having sob and chest pain Marine Meteorologist Required: No Remote Inpatient Coder: Remote Inpatient Coder Present Accompanied by: TANKMAN Allergies Penicillins Adverse Reaction (Intermediate, Verified 07/16/24 07:37) HALLUCINATIONS, SWEATS Medication List - Last Reconciled 08/06/24 by Reji Bailey MD allopurinol 300 mg PO DAILY amlodipine 10 mg PO DAILY@1200 apixaban (Eliquis) 5 mg PO BID 30 days ascorbic acid (vitamin C) (Vitamin C) 500 mg PO ONCE cholecalciferol (vitamin D3) 50 mcg PO DAILY cyanocobalamin (vitamin B-12) 200 mcg PO DAILY insulin aspart U-100 (Novolog U-100 Insulin aspart) 0.12 units subcut DAILY@1200 insulin glargine (Lantus Solostar U-100 Insulin) 42 units subcut BEDTIME@2100 metolazone 2.5 mg PO Q OTHER DAY PRN rosuvastatin 40 mg PO BEDTIME tamsulosin 0.4 mg PO BEDTIME torsemide 80 mg PO DAILY HPI Comments Details: Geovanni comes for follow-up in the office. He had a myocardial perfusion imaging in June which was within normal limits. BNP done in July was below 100. He continues to have symptoms. Says has cough productive of phlegm and chills. He has not had any clear orthopnea. He says leg edema has been better. His weight remains on 380 to382 lb. He is very sedentary overall. Denies any prolonged palpitation irregular heartbeat. Takes all his medications. Last creatinine at 2.7. [facility] Medical History ARIEL (obstructive sleep apnea) CHF (congestive heart failure) Abnormal CT of the abdomen Morbid obesity Chronic atrial fibrillation History of ESBL E. 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 Hypertension Diabetes Kidney disease Surgical History History of surgery on lower extremity Hx of tonsillectomy H/O colonoscopy S/P ERCP Social History Household Members: Spouse Housing: House Are you a primary field care coordinator to a significant other at home: No Do you presently have visiting nurse or other home services: Yes ([employer] 3x/week) Alcohol intake: never Comment: pt refuses Patient Tobacco Use Status: Former Tobacco user Advance Directives Date on File: 05/16/22 service: Yes Current occupational status: retired Review of Systems Const Denies chills, Reports fatigue, Denies fever(s), Reports frequent falls, Reports weakness, Denies weight gain and Denies weight loss ENT Denies dizziness Card Reports chest pain, Denies leg edema, Reports lightheadedness, Reports palpitations, Reports dyspnea, Reports dyspnea on exertion, Reports orthopnea and Denies other (loss of consciousness) Resp Denies cough, Reports dyspnea and Reports dyspnea on exertion GI Denies hematochezia and Denies change in stool character Musc Reports abnormal gait, Reports muscle weakness, Reports numbness, Denies radiating pain into limb and Reports tingling Neuro Reports abnormal gait, Denies dizziness, Reports frequent falls, Reports numbness, Reports tingling and Reports weakness Endo Reports fatigue and Reports palpitations Physical Exam Vital Signs: Last Vital Signs Pulse 100 08/06/24 09:54 BP 146/86 H 08/06/24 09:54 BMI result Body Mass Index 54.8 Const Other: Morbidly obese General: cooperative, healthy appearing, comfortable and no acute distress Orientation/consciousness: patient oriented x3 Neck Neck: Yes JVD Resp Effort & Inspection: normal respiratory effort Auscultation: clear to auscultation bilaterally, no crackles, no rales, no rhonchi and no wheezes Cardio Jugular venous distension: JVD Rate: regular rate Rhythm: abnormal rhythm irregularly irregular Heart sounds: S1 normal heart sound present, S2 normal heart sound present, no murmurs and no rubs Neuro General: patient oriented x3 and no focal motor deficits Extrem Other: Bilateral lower leg swelling with redness to skin. Patient reports improved since hospital admission General: No clubbing, No cyanosis and Yes edema (Three to 4+ below knee edema) Psych Appearance: grossly normal Mental Status: mental status grossly normal Speech and movement: Normal speech and movement present Assessment & Plan Assessment & Plan (1) Chronic heart failure with preserved ejection fraction: Code(s): I50.32 - Chronic diastolic (congestive) heart failure Category: Medical Plan: Heart failure preserved ejection fraction, chronic with diastolic dysfunction chronic atrial fibrillation. Multiple comorbidities including chronic kidney disease, morbid obesity which makes very difficult to evaluate his fluid status. His BNP level is within normal limits. Continue current diuretic regimen with high-dose torsemide and intermittent every other day use of metolazone. We discussed to continue daily weight monitoring. Continue additional diuretics as need be. Goals of therapy were discussed. Overall high risk for readmissions to heart failure given his multiple comorbidities. He complains of chronic productive cough, possibly related to underlying pulmonary parenchymal disease such as emphysema/bronchitis. Consider referral to Pulmonary. (2) Chronic atrial fibrillation: Code(s): I48.20 - Chronic atrial fibrillation, unspecified Category: Medical Plan: Chronic rate control atrial fibrillation, currently rate controlled. Continue current rate control therapy. Continue full oral anticoagulation, currently on apixaban 5 mg b.i.d.. Quarterly renal function test should be pursued. Consider Nephrology consultation. Will follow up in the clinic in 6 months time, sooner p.r.n.. Thank you for allowing me to partake in his care Coding Level of Care Code Est Pt Level 4 (46228) Complex EM visit Add On G2211 Diagnoses Chronic heart failure with preserved ejection fraction I50.32 Chronic atrial fibrillation I48.20
--- OUTSIDE RECORDS SUMMARY | 2024-08-06 10:55 | XMS_ITS | Clinical Summary ---
Author Organization [facility] Facility Address [address] [place] [address] Care Team Providers Care Check Writer Salesperson Name Role Phone Unavailable Primary Care Provider [...]
== END 2024-08-06 10:49 | disposition home or self-care (01) ==
LOC: HO.HCS 09:49
PROVIDERS: PCP Internal Medicine; Visit Provider Internal Medicine Cardiovascular Disease
DX: I50.32 Chronic diastolic (congestive) heart failure (principal); I48.20 Chronic atrial fibrillation, unspecified
CPT/HCPCS: 99214; G2211

== ENCOUNTER → 2024-08-06 09:48 | Outpatient (BNVA) | payer OTHER, SELFPAY | PROVIDERS: PCP Internal Medicine; Visit Provider Internal Medicine Cardiovascular Disease | DX: I50.32 Chronic diastolic (congestive) heart failure (principal); I48.20 Chronic atrial fibrillation, unspecified | CPT/HCPCS: 99212 ==

== ENCOUNTER 2024-09-12 10:18 | Outpatient (AMB) | payer OTHER, SELFPAY ==
--- NOTE | 2024-09-12 10:22 | A.OFFVIS_ITS ---
Intake Visit Reasons: 6 month follow up/ PVR Intake Note: Patient presents today for a follow-up on recurrent UTI Urology Medications: Tamsulosin, Methenamine, Vitamin C Allergies to Antibiotic: Penicillins Blood Thinner: Eliquis PVR: 69ml's Nutrition And Dietetics Instructor Required: No Accompanied by: Self / Same As Patient Allergies Penicillins Adverse Reaction (Intermediate, Verified 09/12/24 11:13) HALLUCINATIONS, SWEATS Medication List - Last Reconciled 09/12/24 by ROHIT Leiva- allopurinol 300 mg PO DAILY amlodipine 10 mg PO DAILY@1200 apixaban (Eliquis) 5 mg PO BID 30 days ascorbic acid (vitamin C) (Vitamin C) 500 mg PO ONCE cholecalciferol (vitamin D3) 50 mcg PO DAILY cyanocobalamin (vitamin B-12) 200 mcg PO DAILY insulin aspart U-100 (Novolog U-100 Insulin aspart) 0.12 units subcut DAILY@1200 insulin glargine (Lantus Solostar U-100 Insulin) 42 units subcut BEDTIME@2100 methenamine hippurate 1 g PO DAILY metolazone 2.5 mg PO Q OTHER DAY PRN rosuvastatin 40 mg PO BEDTIME tamsulosin 0.4 mg PO BEDTIME torsemide 80 mg PO DAILY HPI Comments Details: Geovanni is a very pleasant 73-year-old male patient of Dr. Edouard who is accompanied by his C[employer] HANGER worker Gavi at [facility] office visit. He has a past medical history of recurrent urinary tract infections, diabetes, morbid obesity, chronic AFib on anticoagulation, C diff carrier, varicose vein, hypertension, and kidney disease. He presents to the office today for follow-up of his recurrent urinary tract infections, lower urinary tract symptoms, incomplete bladder emptying, and renal cyst. In discussion with the patient today reports to be doing and feeling well. He denies having had any bothersome urinary issues or concerns. He does report baseline urinary frequency however feels he is managing this well independently. He denies having had any UTI like symptoms and or urinary tract infections since his last office visit here. Previous workup has included a in office cystoscopy with Dr. 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 Previous workup has also included a retroperitoneal ultrasound 07/25 noting bilateral kidneys with no calculi or hydronephrosis. Bilateral benign simple renal cysts are noted that require no imaging follow-up per radiology report. The bladder is distended with a pre void bladder volume is approximately 425 mL. Postvoid bladder volume is 400 mL. The prostate is enlarged measuring approximately 36 mL. He denies urinary hematuria, dysuria, flank pain, fever, and or chills. He reports compliance with methenamine and vitamin-C as prescribed. Discussed at length potential causes for recurrent urinary tract infections. In review of patient's chart it appears PSA 03/25 0.3, 05/28 0.4. He otherwise offers no other issues or concerns at this time. [facility] Medical History ARIEL (obstructive sleep apnea) CHF (congestive heart failure) Abnormal CT of the abdomen Morbid obesity Chronic atrial fibrillation History of ESBL E. 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 Hypertension Diabetes Kidney disease Surgical History History of surgery on lower extremity Hx of tonsillectomy H/O colonoscopy S/P ERCP Social History Household Members: Spouse Housing: House Are you a primary customer care assistant to a significant other at home: No Do you presently have visiting nurse or other home services: Yes ([employer] 3x/week) Alcohol intake: never Comment: pt refuses Patient Tobacco Use Status: Former Tobacco user Advance Directives Date on File: 05/16/22 service: Yes Current occupational status: retired Review of Systems Const Reports as per HPI Eyes Reports no additional complaints ENT Reports no additional complaints Card Reports as per HPI Resp Reports no additional complaints GI Reports as per HPI Reports as per HPI Musc Reports as per HPI Neuro Reports as per HPI Psych Reports as per HPI Endo Reports as per HPI Physical Exam Const General: cooperative, comfortable, no acute distress, well developed, alert and awake Orientation/consciousness: patient oriented x3 Limitations: crutches HEENT Head: Yes normal to inspection, Yes normocephalic and Yes atraumatic Ears: hearing grossly normal bilaterally Eyes General: appearance normal, both eyes and all related structures Neck Neck: Yes normal visual inspection and Yes trachea midline Chest Chest palpation & inspection: normal inspection of the chest Resp Effort & Inspection: normal respiratory effort and able to speak in complete sentences Cardio Rate: regular rate GI Inspection: Yes normal to inspection General: Yes no CVA tenderness Back/Spine/Pelvis Back: no CVA tenderness Skin General skin exam: no rashes or lesions noted Neuro General: patient oriented x3 Extrem General: Yes normal to inspection Psych Appearance: grossly normal and well kempt Mental Status: mental status grossly normal Speech and movement: Normal speech and movement present and Clear speech present Affect: normal affect Attitude: cooperative Thought process: Normal thought process present Thought content: Normal thought content present Insight: Fair insight present (Psych) Judgement: Fair judgement present (Psych) Office Procedures Post Void Residual Post Residual Void Post Void Residual (PVR): 69 [id number] Void Residual by ultrasound Assessment & Plan Assessment & Plan (1) Incomplete emptying of bladder due to benign prostatic hyperplasia: Code(s): N40.1 - Benign prostatic hyperplasia with lower urinary tract symptoms; R33.9 - Retention of urine, unspecified Category: Medical (2) Complicated urinary tract infection: Code(s): N39.0 - Urinary tract infection, site not specified Category: Medical (3) Recurrent urinary tract infection: Code(s): N39.0 - Urinary tract infection, site not specified Category: Medical Plan Unable to obtain urine for urinalysis as patient unable to void however PVR 69 mL. He currently denies any bothersome urinary issues or concerns. He reports be happy with current voiding parameters. Continue methenamine and vitamin-C as prescribed. [facility] Follow-up in 1 year with PSA and PVR; or sooner with any issues, concerns, and or questions. Orders: Orders AMB Post Void Residual by ultrasound Today N40.1 - Benign prostatic hyperplasia with lower urinary tract symptoms, R33.9 - Retention of urine, unspecified Patient Instructions: The patient had an opportunity to ask questions regarding the treatment plan. All questions were answered. Physical exam, labs, and imaging were discussed and reviewed in detail. As well as risks, benefits, and discussion of treatment choices. No major barriers to understanding were identified. The patient expressed understanding and agreement with the above treatment plan. The patient was made aware they should contact our office by phone for worsening of their current condition, the appearance of new symptoms, or with any questions or concerns. Compliance is encouraged with any medications and follow up testing that is ordered. It is a privilege to be allowed the opportunity to participate in? your urological care.? Again, if you have any questions or concerns If you have any questions or concerns please do not hesitate to contact me. The office is [phone]. This note is constructed using voice recognition software. While every effort has been made to ensure accuracy installer technician errors may have been included. Yours sincerely, MALI Leiva Coding Level of Care Code Est Pt Level 3 (84900) Complex EM visit Add On G2211 Diagnoses Incomplete emptying of bladder due to benign prostatic hyperplasia N40.1; R33.9 Complicated urinary tract infection N39.0 Recurrent urinary tract infection N39.0 CPT Codes Post Residual Void - PVR CPT Code: 59307-Hhmh Void Residual by ultrasound ([id number])
--- OUTSIDE RECORDS SUMMARY | 2024-09-12 11:51 | XMS_ITS | Clinical Summary ---
Author Organization [facility] Facility Address [address] [place] [address] Care Team Providers Care Battery Hand Name Role Phone Unavailable Primary Care Provider [...]
== END 2024-09-12 11:21 | disposition home or self-care (01) ==
LOC: HO.HUSH 10:18
PROVIDERS: PCP Internal Medicine; Visit Provider Nurse Practitioner Family
DX: N40.1 Benign prostatic hyperplasia with lower urinary tract symptoms (principal); R33.9 Retention of urine, unspecified; N39.0 Urinary tract infection, site not specified
CPT/HCPCS: 99213; G2211

== ENCOUNTER → 2024-09-12 10:18 | Outpatient (BNVA) | payer OTHER, SELFPAY | PROVIDERS: PCP Internal Medicine; Visit Provider Nurse Practitioner Family | DX: N40.1 Benign prostatic hyperplasia with lower urinary tract symptoms (principal); R33.9 Retention of urine, unspecified; N39.0 Urinary tract infection, site not specified | CPT/HCPCS: 51798; 99212 ==

== ENCOUNTER 2024-11-05 09:16 | Outpatient (REF) | payer OTHER, SELFPAY ==
--- OUTSIDE RECORDS SUMMARY | 2024-11-05 09:36 | XMS_ITS | Clinical Summary ---
Author Organization [facility] Facility Address [address] [place] [id number] Care Team Providers Care Stereotype Molder Name Role Phone Unavailable Primary Care Provider [...] of 1 - PCV) 2000 Influenza Vaccine (#1) 2024 Hepatitis B Vaccine Aged Out No longe r eligible based on patient's age to complete this topic Insurance [employer] 1,2,3 (VACCN) CCN [employer] 1,2,3 (VACCN)
[2024-11-05 10:13] LABS: B Type Natriuretic Peptide 90 pg/mL (<100)
[2024-11-05 10:23] LABS: Anion Gap 17 (12-20); Blood Urea Nitrogen 137 mg/dL (9-16); Calcium 8.8 mg/dL (8.4-10.2); Carbon Dioxide 25 mmol/L (22-29); Chloride 101 mmol/L (96-108); Estimated Glomerular Filt Rate 16; Potassium 4.7 mmol/L (3.3-5.1); Sodium 138 mmol/L (135-145)
== END 2024-11-05 09:17 | disposition home or self-care (01) ==
LOC: HO.LAB 09:16
PROVIDERS: Visit Provider Internal Medicine Cardiovascular Disease
DX: I50.32 Chronic diastolic (congestive) heart failure (principal)
CPT/HCPCS: 36415; 80048; 83880

== ENCOUNTER 2024-11-14 10:26 | Inpatient (IN) | payer OTHER, SELFPAY ==
[2024-11-14] VITALS (13 sets, daily range): BP systolic 89–130; BP diastolic 22–90; PULSE 57–97; RESP 16–20; TEMP 36.5–36.7; O2SAT 98–100; BMI 55.3
--- NOTE | ~2024-11-14 | XR_ITS ---
EXAMINATION: XR CHEST CLINICAL INFORMATION: SOB COMPARISON: May 31, 2024. TECHNIQUE: Frontal view of the chest was obtained. FINDINGS: Prominence of the interstitial markings extending from the perihilar region. No gross consolidation pleural effusion or pneumothorax. No hyperinflation. Cardiomediastinal silhouette size is normal. Calcified plaque thoracic aorta. Multilevel thoracic spondylosis. Degenerative changes in the left acromioclavicular joint. XR/XR chest 1V IMPRESSION: Mild interstitial lung edema versus acute small airway inflammatory process. Electronically signed by: Erlin Longoria MD 11/14/2024 11:34 AM EDT
--- NOTE | ~2024-11-14 | US_ITS ---
CLINICAL HISTORY: MARGOTH US of kidneys Comparison: US/RI/SR - US RETROPERITONEUM - 08/01/23 15:59 EDT Findings: Kidneys are not well visualized due to body habitus and suboptimal acoustic window. Right kidney is grossly normal in size, echogenicity and morphology, 10.4 cm in length. No calculus or hydronephrosis. 2.3 x 2.3 x 2.5 cm avascular cyst at the interpolar region, not well visualized, previously 3 cm. The other cyst of the lower pole seen on prior exam is not visualized. Left kidney is normal in size, echogenicity and morphology, 13 cm in length. No calculus or hydronephrosis. Simple cyst 9 cm in the upper interpolar region, previously 8 cm. The other simple cyst of the lower pole seen on previous exam is not visualized. Limited color Doppler demonstrates unremarkable bilateral blood flow. Impression: Bilateral renal benign cysts. This document has been electronically signed by: Aminah Agrawal MD on 11/15/2024 14:10:28
--- NOTE | ~2024-11-14 | CT_ITS ---
EXAMINATION: CT HEAD WITHOUT CONTRAST CLINICAL INFORMATION: Dizziness, history of melanoma left thigh COMPARISON: None available. TECHNIQUE: Contiguous axial imaging was performed from the skull base to vertex without intravenous administration of contrast. This CT examination was performed using dose optimization techniques as appropriate, variously including the following: *Automated exposure control *Adjustment of mA and/or kV according to patient size (this includes techniques or standardized protocols for targeted exams where dose is matched to indication/reason for exam; i.e. extremities or head) *Use of iterative reconstruction technique DLP: 684 mGy/cm. FINDINGS: There is no acute intra-axial, extra-axial bleed, masses or midline shift. No acute infarction evolution. There is no edema. The garcia to white matter differentiation is maintained normal. The lateral ventricles are symmetrical in size and configuration with mild enlargement. Bone windows reveal no calvarial abnormality. There is mild mucoperiosteal thickening bilateral sphenoid sinuses. Rest of the paranasal sinuses and mastoid air cells are well-aerated. There are surgical triston the hardening artifact along the left medial optic globe from previous intervention. The soft tissues are normal. CT/CT head/brain wo IV con IMPRESSION: No acute intracranial process seen. Surgical triston along the left medial optic globe likely from previous melanoma surgery. Electronically signed by: Norbert Shine MD 11/14/2024 04:40 PM EDT
--- NOTE | 2024-11-14 10:47 | ED.SOB ---
HPI - SOB/Dyspnea General Chief Complaint: Dyspnea Stated Complaint: sob Time Seen by Provider: 11/14/24 10:46 Source: patient and RN notes reviewed Mode of arrival: ambulatory Limitations: no limitations History of Present Illness ED Provider: Anil Morris PA-C HPI Narrative: 73-year-old male with medical history of ARIEL, CHF, obesity, AFib on Eliquis, ID T2DM, CKD, presents to the ED due to SOB, and low BP readings at home. Patient states over the last 3 months he has been having low BP readings with home cuff monitor, lowest reading this morning prior to arrival was 90/53. [facility] called [facility] provider [facility] who advised him to come into the ED for evaluation due to 3 months of SOB and low BP reading. Patient reports over the last few months he has also been experiencing dizziness, lightheadedness when moving or standing up from sitting position, and increased SOB with movement. Patient states this morning he took his insulin prior to eating breakfast, and got a reading on his CGM of less than 50, patient took 8 glucose pills which brought his glucose back up to 170. Patient states he has been experiencing intermittent chest pain that feels like a tightness/pressure in the left chest. Additionally patient states he has been noticing some dark stool over the last 3 months. Related Data Home Medications ?Medication ?Instructions ?Recorded ?Confirmed cholecalciferol (vitamin D3) 50 50 mcg PO DAILY 11/03/20 08/06/24 mcg (2,000 unit) capsule cyanocobalamin (vitamin B-12) 100 200 mcg PO DAILY 05/02/22 08/06/24 mcg tablet rosuvastatin 40 mg tablet 40 mg PO BEDTIME 05/02/22 08/06/24 ascorbic acid (vitamin C) 1,000 mg 500 mg PO ONCE 11/13/23 08/06/24 tablet (Vitamin C) amlodipine 5 mg tablet 10 mg PO DAILY@119911/29/23 08/06/24 allopurinol 300 mg tablet 300 mg PO DAILY 05/08/24 08/06/24 insulin aspart U-100 100 unit/mL 0.12 unit subcut DAILY@1200 05/08/24 08/06/24 subcutaneous solution (Novolog U-100 Insulin aspart) insulin glargine 100 unit/mL (3 42 unit subcut BEDTIME@2100 05/08/24 08/06/24 mL) subcutaneous pen (Lantus Solostar U-100 Insulin) torsemide 20 mg tablet 80 mg PO DAILY 05/08/24 08/06/24 methenamine hippurate 1 gram tablet 1 g PO DAILY 09/12/24 Previous Rx's ?Medication ?Instructions ?Recorded apixaban 5 mg tablet (Eliquis) 5 mg PO BID 30 days #60 tabs 03/26/20 metolazone 2.5 mg tablet 2.5 mg PO Q OTHER DAY PRN weight 10/17/24 gain #14 tabs Allergies Allergy/AdvReac Type Severity Reaction Status Date / Time Penicillins AdvReac Intermediate HALLUCINATIONS, Verified 11/14/24 11:03 SWEATS Review of Systems Review of Systems: CONST: Negative for fever, body aches and chills. HENT: Negative for neck pain/stiffness, headache, congestion, sore throat, swelling. EYES: Negative for discharge/pain or vision changes. RESP: Negative for cough/hemoptysis and shortness of breath. POS SOB CV: Negative chest pain, difficulty breathing, palpitations. POS chest pain ABD: Negative pain, nausea, vomiting. : Negative increase frequency, dysuria, blood in urine or stool. POS dark stool MUSC: Negative for muscle aches, edema. SKIN: Negative rash, lesions/sores. NEURO: Negative headache, dizziness, weakness. POS dizziness/ lightheadedness with movement PMFSH Past Medical History Attestation statement: The following information was validated with the patient. Source: old records reviewed and nursing notes reviewed Medical History ARIEL (obstructive sleep apnea) CHF (congestive heart failure) Abnormal CT of the abdomen Morbid obesity Chronic atrial fibrillation History of ESBL E. 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 Hypertension Diabetes Kidney disease Surgical History History of surgery on lower extremity Hx of tonsillectomy H/O colonoscopy S/P ERCP Social History Social History Household Members: Spouse Housing: House Are you a primary day care center director to a significant other at home: No Do you presently have visiting nurse or other home services: Yes ([employer] 3x/week) Alcohol intake: never Comment: pt refuses Patient Tobacco Use Status: Former Tobacco user Advance Directives: Yes Advance Directives on File: Yes Advance Directives Date on File: 05/16/22 Do you have a plan to hurt others: No Plan service: Yes Current occupational status: retired Physical Exam Vital Signs: Vital Signs: Last Vital Signs Temp 97.7 F 11/14/24 14:00 Pulse 67 11/14/24 16:13 Resp 16 11/14/24 16:13 BP 112/51 L 11/14/24 16:13 Pulse Ox 98 11/14/24 16:13 O2 Del Method Room Air 11/14/24 16:13 BMI result Body Mass Index 55.3 GENERAL APPEARANCE: ?AxOx4, chronically ill-appearing, no acute distress. HEENT: ?NC, AT. MMM. EOMI, clear conjunctiva, oropharynx clear. NECK: ?Supple without lymphadenopathy.? No stiffness or restricted ROM. No evidence of JVD HEART:? Normal rate and regular rhythm, normal S1/S2, no m/r/g LUNGS:? No noted increased work of breathing, no accessory muscle use for breathing, no pursed lip breathing, mild expiratory wheeze throughout all lung zaman ABDOMEN: ?Soft, nontender, nondistended with good bowel sounds heard. BACK: No CVAT, no obvious deformity. EXTREMITIES: ?Without cyanosis, clubbing, lower extremities with hemosiderin staining, thick skin, no hydrostatic bullae, NEUROLOGICAL: ?Grossly nonfocal. Alert and oriented, moving all 4 extremities. Skin: ?Warm and dry without any rash. Medications Administered Discontinued Medications Generic Name Dose Route Start Last Admin Trade Name Freq PRN Reason Stop Dose Admin Acetaminophen 975 mg 11/14/24 13:32 11/14/24 14:03 Acetaminophen 325 Mg Tablet PO 11/14/24 13:33 975 mg ONCE ONE Administration Medical Decision Making Medical Decision Making MDM Narrative: 73-year-old male with medical history of ARIEL, CHF, obesity, AFib on Eliquis, ID T2DM, CKD, presents to the ED due to SOB, and low BP readings at home. Patient states over the last 3 months he has been having low BP readings with home cuff monitor, lowest reading this morning prior to arrival was 90/53. Patient called [facility] provider [facility] who advised him to come into the ED for evaluation due to 3 months of SOB and low BP reading. Patient reports over the last few months he has also been experiencing dizziness, lightheadedness when moving or standing up from sitting position, and increased SOB with movement. Patient states this morning he took his insulin prior to eating breakfast, and got a reading on his CGM of less than 50, patient took 8 glucose pills which brought his glucose back up to 170. Patient states he has been experiencing intermittent chest pain that feels like a tightness/pressure in the left chest. Additionally patient states he has been noticing some dark stool over the last 3 months. VS-BP of 104/49, pulse rate 90, respiratory rate 20, afebrile with oral temp of 98?, O2 saturation 99% on room air. Physical exam without increased work of breathing, no accessory muscle use, no pursed lip breathing, lungs with mild expiratory wheeze throughout all lung zaman. Cardiac exam reveals irregular rate and rhythm, no murmurs/rubs/gallops, no JVD. Lower extremities without pitting edema, however skin is thickened, hemosiderin staining EKG- atrial fibrillation with PVCs, with right bundle branch block, left anterior fascicular block, however when compared with EKG done on 05/2024 no change observed, initial troponin 28.3 Course 13:38- Labs reveal leukocytosis of 11.9, hemoglobin of 10.4, HCT of 31.8, BUN of 140, creatinine of 3.8, BNP of 113. Occult blood stool positive. UA with 3+ leukocyte esterase, greater than 50 WBCs, 4+ bacteria, however on review, this seems to be patient's baseline, has been treated for E coli several times in the past, I suspect patient is colonized with E coli, no urinary symptoms, I do not believe patient needs to be treated for this at this time. CXR- without cardiomegaly, questioning interstitial lung edema VS acute small airway inflammatory process. Orthostatic vital signs negative for orthostatic hypotension. Patient states he is dizzy when getting out of bed, while walking to the bathroom. 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 every six-months, states he has a headache behind the left eye. 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 I tried to contact his doctor at the [facility] however I was unable to get a hold of anyone to talk to me about these findings. Patient does not have any other insight to this condition, is unsure of what the plan is. I will obtain CT head/brain for further evaluation of headache, dizziness and ensure there is no mass due to history of left eye melanoma. 17:05- CT head/brain negative for acute intracranial findings, mass. Patient with persistent dizziness while ambulating. I believe patient needs admission to medicine for further evaluation of positive guaiac, and normocytic anemia with HGB of 10.4, HCT of 31.8. I discussed case with hospitalist Dr. Leos who agreed to admission. Patient is in agreement with the plan. Differential Diagnosis Differential Diagnoses: The differential diagnosis associated with the presentation includes Orthostatic hypotension Upper GI bleed CHF exacerbation Bronchitis Admission/Observation Consideration of admission/observation: Escalation of care including admission/observation considered Lab Data MDM Lab Attestation statement: I reviewed the patient's lab results. 11/14/24 12:01 11/14/24 12:01 Labs: Lab Results 11/14/24 11/14/24 11/14/24 Range/Units 11:59 12:01 12:08 WBC 11.9 H (4.8-10.8) X10*3/uL RBC 3.34 L D (4.60-5.80) X10*6/uL Hgb 10.4 L (14.0-18.0) g/dl Hct 31.8 L (42.0-52.0) % MCV 95.2 (80.0-98.0) fL MCH 31.1 (27.0-33.0) pg MCHC 32.7 (31.0-36.0) g/dl RDW 14.8 (11.0-16.0) % Plt Count 219 (160-400) X10*3/uL MPV 11.7 (9.4-12.4) fL Immature Gran % (Auto) 0.8 H (0.0-0.4) % Neut % (Auto) 87.1 H (45-73) % Lymph % (Auto) 5.1 L (20-40) % [place] % (Auto) 5.1 (2-11) % Eos % (Auto) 1.6 (0-4) % Baso % (Auto) 0.3 (0-2) % Lymph # (Auto) 0.6 L (1.2-4.9) X10*3/uL [place] # (Auto) 0.6 (0.1-1.2) X10*3/uL Eos # (Auto) 0.2 (0.0-0.4) X10*3/uL Baso # (Auto) 0.0 (0.0-0.2) X10*3/uL Abs Immat Gran (auto) 0.10 H (0.00-0.03) X10*3/uL Absolute Neuts (auto) 10.3 H (2.0-8.3) x10*3/uL Absolute Nucleated RBC 0.000 (0.0-0.012) X10*3/uL Nucleated RBC % (auto) 0.0 (0.0-0.2) /100WBC VBG pH 7.38 (7.32-7.43) VBG pCO2 47 mmHg VBG pO2 32 mmHg VBG HCO3 28 H (22-26) mmol/L VBG O2 Saturation 39.0 % VBG Base Excess 2.7 mmol/L Sodium 139 (135-145) mmol/L Potassium 3.5 D (3.3-5.1) mmol/L Chloride 98 (96-108) mmol/L Carbon Dioxide 26 (22-29) mmol/L Anion Gap 19 (12-20) BUN 140 H (9-16) mg/dL Creatinine 3.86 H (0.5-1.4) mg/dL Estim Creat Clear Calc 27.4 Estimated GFR 15 Random Glucose 205 H (60-115) mg/dL Lactic Acid 1.0 (0.5-2.0) mmol/L Calcium 8.7 (8.4-10.2) mg/dL Magnesium 1.9 (1.6-2.6) mg/dL Total Bilirubin 0.4 (0.0-1.0) mg/dL AST 17 (5-37) U/L ALT 8 (0-40) U/L Alkaline Phosphatase 62 (39-117) U/L Troponin I High Sens 28.3 (<3.5-35.0) ng/L B-Natriuretic Peptide 113 H (<100) pg/mL Total Protein 7.4 (6.5-8.0) g/dL Albumin 3.8 (3.5-5.0) g/dL Urine Color Urine Appearance Urine pH (5.0-9.0) Ur Specific [place] (1.005-1.025) Urine Protein (Neg-Trace) mg/dL Urine Glucose (UA) (Negative) mg/dL Urine Ketones (Negative) mg/dL Urine Blood (Negative) Urine Nitrite (Negative) Ur Leukocyte Esterase (Negative) Urine RBC (0-2) /HPF Urine WBC (0-5) /HPF Ur Squamous Epith Cells (0-2) /HPF Urine Bacteria (None Seen) Hyaline Casts (0-2) /LPF Stool Occult Blood POSITIVE (NEGATIVE) Influenza Type A (PCR) (Negative) Influenza Type B (PCR) (Negative) RSV RNA Qual (PCR) (Negative) SARS-CoV-2 RNA (RT-PCR) (Negative) 11/14/24 11/14/24 11/14/24 Range/Units 13:28 15:35 16:09 WBC (4.8-10.8) X10*3/uL RBC (4.60-5.80) X10*6/uL Hgb (14.0-18.0) g/dl Hct (42.0-52.0) % MCV (80.0-98.0) fL MCH (27.0-33.0) pg MCHC (31.0-36.0) g/dl RDW (11.0-16.0) % Plt Count (160-400) X10*3/uL MPV (9.4-12.4) fL Immature Gran % (Auto) (0.0-0.4) % Neut % (Auto) (45-73) % Lymph % (Auto) (20-40) % [place] % (Auto) (2-11) % Eos % (Auto) (0-4) % Baso % (Auto) (0-2) % Lymph # (Auto) (1.2-4.9) X10*3/uL [place] # (Auto) (0.1-1.2) X10*3/uL Eos # (Auto) (0.0-0.4) X10*3/uL Baso # (Auto) (0.0-0.2) X10*3/uL Abs Immat Gran (auto) (0.00-0.03) X10*3/uL Absolute Neuts (auto) (2.0-8.3) x10*3/uL Absolute Nucleated RBC (0.0-0.012) X10*3/uL Nucleated RBC % (auto) (0.0-0.2) /100WBC VBG pH (7.32-7.43) VBG pCO2 mmHg VBG pO2 mmHg VBG HCO3 (22-26) mmol/L VBG O2 Saturation % VBG Base Excess mmol/L Sodium (135-145) mmol/L Potassium (3.3-5.1) mmol/L Chloride (96-108) mmol/L Carbon Dioxide (22-29) mmol/L Anion Gap (12-20) BUN (9-16) mg/dL Creatinine (0.5-1.4) mg/dL Estim Creat Clear Calc Estimated GFR Random Glucose (60-115) mg/dL Lactic Acid (0.5-2.0) mmol/L Calcium (8.4-10.2) mg/dL Magnesium (1.6-2.6) mg/dL Total Bilirubin (0.0-1.0) mg/dL AST (5-37) U/L ALT (0-40) U/L Alkaline Phosphatase (39-117) U/L Troponin I High Sens 31.8 (<3.5-35.0) ng/L B-Natriuretic Peptide (<100) pg/mL Total Protein (6.5-8.0) g/dL Albumin (3.5-5.0) g/dL Urine Color Yellow Urine Appearance Cloudy Urine pH 5.5 (5.0-9.0) Ur Specific [place] 1.010 (1.005-1.025) Urine Protein Negative (Neg-Trace) mg/dL Urine Glucose (UA) Negative (Negative) mg/dL Urine Ketones Negative (Negative) mg/dL Urine Blood Negative (Negative) Urine Nitrite Negative (Negative) Ur Leukocyte Esterase Large (3+) H (Negative) Urine RBC 0-2 (0-2) /HPF Urine WBC >50 H (0-5) /HPF Ur Squamous Epith Cells 0-2 (0-2) /HPF Urine Bacteria 4+ (None Seen) Hyaline Casts 3-5 (0-2) /LPF Stool Occult Blood (NEGATIVE) Influenza Type A (PCR) NEGATIVE (Negative) Influenza Type B (PCR) NEGATIVE (Negative) RSV RNA Qual (PCR) NEGATIVE (Negative) SARS-CoV-2 RNA (RT-PCR) NEGATIVE (Negative) Independent Interpretation I performed an independent interpretation of an: EKG Interpretation: I independently interpreted the EKG which revealed atrial fibrillation with PVCs, right bundle branch block, left anterior fascicular block, without ST-elevation/depression, when comparing this EKG with a prior done on 05/2024 no change noted. Vent. Rate : 65 BPM Atrial Rate : * BPM P-R Int : * ms QRS Dur : 180 ms QT Int : 474 ms P-R-T Axes : * -84 65 degrees QTcB Int : 492 ms Atrial fibrillation with premature ventricular or aberrantly conducted complexes Right bundle branch block Left anterior fascicular block Bifascicular block Septal infarct , age undetermined Abnormal ECG When compared with ECG of 31-May-2024 11:55, No significant change was found I personally interpreted the CXR which does not reveal cardiomegaly, pleural effusions Radiology Impression Discussion of test interpretation with radiology: I have reviewed the radiologist's reading. Radiologist Impression: CXR FINDINGS: Prominence of the interstitial markings extending from the perihilar region. No gross consolidation pleural effusion or pneumothorax. No hyperinflation. Cardiomediastinal silhouette size is normal. Calcified plaque thoracic aorta. Multilevel thoracic spondylosis. Degenerative changes in the left acromioclavicular joint. XR/XR chest 1V IMPRESSION: Mild interstitial lung edema versus acute small airway inflammatory process. Electronically signed by: Erlin Longoria MD 11/14/2024 11:34 AM EDT Dictated By: Erlin Albrecht MD Signed By: <Electronically signed by Erlin Jones MD in [place]> 11/14/[address] head/brain FINDINGS: There is no acute intra-axial, extra-axial bleed, masses or midline shift. No acute infarction evolution. There is no edema. The garcia to white matter differentiation is maintained normal. The lateral ventricles are symmetrical in size and configuration with mild enlargement. Bone windows reveal no calvarial abnormality. There is mild mucoperiosteal thickening bilateral sphenoid sinuses. Rest of the paranasal sinuses and mastoid air cells are well-aerated. There are surgical triston the hardening artifact along the left medial optic globe from previous intervention. The soft tissues are normal. CT/CT head/brain wo IV con IMPRESSION: No acute intracranial process seen. Surgical triston along the left medial optic globe likely from previous melanoma surgery. Electronically signed by: Norbert Shine MD 11/14/2024 04:40 PM EDT RP Dictated By: Norbert Shine MD Signed By: <Electronically signed by Norbert Shine MD in [place]> 11/14/24 1640 External Record Review External record reviewed: Inpatient record, Office record and Outpatient record Chronic Conditions Patient?s care impacted by: Diabetes, Hypertension and Other (AFib, CHF, ARIEL, CKD) Discharge Plan Discharge Patient Disposition: Admitted As Inpatient Print Language: Ivorian
--- NOTE | 2024-11-14 11:17 | ECG_ITS ---
Test Reason : SOB Blood Pressure : */* mmHG Vent. Rate : 65 BPM Atrial Rate : * BPM P-R Int : * ms QRS Dur : 180 ms QT Int : 474 ms P-R-T Axes : * -84 65 degrees QTcB Int : 492 ms Atrial fibrillation with premature ventricular or aberrantly conducted complexes Right bundle branch block Left anterior fascicular block Bifascicular block Septal infarct , age undetermined Abnormal ECG When compared with ECG of 31-May-2024 11:55, No significant change was found Referred By: Alexandra Ma Electronically Signed By: Jerardo Rojas
[2024-11-14 12:08] LABS: MANUAL DIFF FLAG NO
[2024-11-14 12:11] LABS: OBS Int Ctl Valid YES; OBS1 POSITIVE (NEGATIVE)
[2024-11-14 12:11] LABS: Venous Blood Gas Refer to POC result
[2024-11-14 12:12] LABS: VBG HCO3 28 mmol/L (22-26); VBG O2 % Saturation 39.0 %
[2024-11-14 12:13] LABS: Hematocrit 31.8 % (42.0-52.0); Hemoglobin 10.4 g/dl (14.0-18.0); Imm Gran Abs Auto 0.10 X10*3/uL (0.00-0.03); Imm Gran Pct Auto 0.8 % (0.0-0.4); Lymphocytes Absolute Auto 0.6 X10*3/uL (1.2-4.9); Mean Corpuscular HGB Conc 32.7 g/dl (31.0-36.0); Mean Corpuscular Hemoglobin 31.1 pg (27.0-33.0); Mean Corpuscular Volume 95.2 fL (80.0-98.0); NRBC Abs Auto 0.000 X10*3/uL (0.0-0.012); NRBC Pct Auto 0.0 /100WBC (0.0-0.2); Platelet Count 219 X10*3/uL (160-400); Red Blood Count 3.34 X10*6/uL (4.60-5.80); White Blood Count 11.9 X10*3/uL (4.8-10.8)
[2024-11-14 12:29] LABS: B Type Natriuretic Peptide 113 pg/mL (<100)
[2024-11-14 12:32] LABS: Troponin-I High Sensitivity 28.3 ng/L (<3.5-35.0)
[2024-11-14 12:43] LABS: Alanine Aminotransferase 8 U/L (0-40); Albumin Level 3.8 g/dL (3.5-5.0); Alkaline Phosphatase 62 U/L (39-117); Anion Gap 19 (12-20); Aspartate Amino Transferase 17 U/L (5-37); Blood Urea Nitrogen 140 mg/dL (9-16); Calcium 8.7 mg/dL (8.4-10.2); Carbon Dioxide 26 mmol/L (22-29); Chloride 98 mmol/L (96-108); Creatinine Clr Calc Pharmacy 27.4; Estimated Glomerular Filt Rate 15; Magnesium 1.9 mg/dL (1.6-2.6); Potassium 3.5 mmol/L (3.3-5.1); Sodium 139 mmol/L (135-145); Total Protein 7.4 g/dL (6.5-8.0)
--- OUTSIDE RECORDS SUMMARY | 2024-11-14 13:15 | XMS_ITS | Clinical Summary ---
Author Organization [facility] Facility Address [address] [place] [id number] Care Team Providers Care Park Ranger Name Role Phone Unavailable Primary Care Provider [...]
--- OUTSIDE RECORDS SUMMARY | 2024-11-14 13:15 | XMS_ITS | Encounter Summary ---
Author Organization [facility] Address [address] [place] [id number] Phone Care Team Providers Care Editing Intern Name Role Phone Guzman Edouard MD Primary Care Provider + Reason for Referral * MRI/CAT Scan - Closed Specialty Diagnoses / Procedures Referred By Albert ndiaye Referred To Contact Radiology Diagnoses Acquired cyst of kidney Procedures CT Abdomen Only (No Pelvis) CT Abdomen/Pelvis Cristina Tinoco CNP Phone: tel: fax: mailto:[email or web address] Referral ID Status Reason Start Date Expiration Date Visits Re quested Visits Authorized [id number] Closed 11/01/2018 04/30/2019 1 1 Encounter Details Date Type Department Care Team (Late st Contact Info) Description 01/09/2019 Ancillary Orders Virtual Department [address] [place] [address] Cristina Tinoco CNP [address] [place] [address], [address] [id number] [email or web address] Acquired cyst of kidney Social History Tobacco Use Types Packs/Day Years Used Date Smoking Tobacco: Former Cigarettes 1.5 16 1 964 - 1980 Smokeless Tobacco: Never Alcohol Use Standard Drinks/Week Comments No 0 (1 standard drink = 0.6 oz pur e alcohol) quit at age 27 Sex and Gender Information Value Date Recorded Sex Assigned at Male 06/08/2017 4:10 PM EST Legal Sex Male 7:08 PM EST Gender Identity Male 06/08/2017 4:10 PM EST Sexual Orientation Straight 06/08/2017 4: 10 PM EST Occupation Industry Job Start Date Job End Date Retired Not on file Not on file Not on file Retired Not on file Not on file Not on file documented as of this encounter Plan of Treatment Not on file documented as of this encounter Results * CT ABDOMEN WITH AND WITHOUT CONTRAST (01/09/2019 2:30 PM EDT) Anatomical Region Laterality Modality Abdomen, Abdominal Vasculature C omputed Tomography 01/09/2019 2:49 PM EDT Addenda Addendum by Neel Ovalles MD on 01/24/2019 7:46 AM EDT COMPARISON: 09/21/2017. TECHNIQUE: Precontrast views are obtained from the kidneys through the inferior pubic rami. Intravenous contrast is then administered and scanning obtained at ninety seconds from the dome of the liver to inferior pubic rami without oral contrast per renal mass protocol. Multiplanar reformatted images obtained. Automated exposure control utilized. CT ABDOMEN FINDINGS: *Significantly limited due to artifact from morbid obesity.* Lungs/heart: Heart is normal in size. No pericardial effusion. Lung bases are clear. Spleen: Normal. Liver: Normal. Gallbladder/biliary tree: Stable multiple noncalcified gallstones. No biliary dilatation. Pancreas: Stable mild diffuse fatty infiltration. Adrenal glands: Left adrenal gland is normal. There is a stable 1.6 cm soft tissue nodule medial to the right adrenal gland limb. This either represents a retroperitoneal lymph node or exophytic adrenal gland mass. Precontrast Hounsfield units measure >>> 92.5 <<<. Vasculature: Mild diffuse arterial calcified plaque. No AAA. Genitourinary: Kidneys are normal in size and shape. Normal enhancement. No hydronephrosis. The right lower renal pole calculus is no longer present. No new calculi. The right lower renal pole parapelvic cyst is stable in size measuring 3 x 2.6 cm. Precontrast Hounsfield units measure 72.2 and postcontrast 74.0. The exophytic anterior left mid renal pole hypodense mass is stable in size measuring 7.8 x 6.6 cm. Precontrast Hounsfield units measure 108 and postcontrast >>> Hounsfield units <<< measure 114. No perinephric fluid collections. Gastrointestinal tract: Moderate diffuse colonic diverticulosis. Stomach and imaged small bowel are normal. Peritoneum/retroperitoneum: No bulky lymphadenopathy, ascites or fluid collections. Musculoskeletal: Morbid obesity. Stable severe multilevel lumbar spine degenerative disc disease and facet arthropathy and chronic right 10th rib fracture deformity. No destructive bone lesions. IMPRESSION: *Significantly limited due to artifact from morbid obesity.* 1. Stable bilateral hypodense renal masses. Elevated Hounsfield units may be artifactual or may be due to hyperdense/proteinaceous material (Bosniak 2). No enhancement. Continued follow-up >>> may be warranted <<<. 2. Resolution of non-obstructive right nephrolithiasis. 3. Stable 1.6 cm right retroperitoneal nodule as above. 4. Multiple additional findings as outlined. TOTAL CTDIvol: 66.6 mGy POS - [id number] Edited by: Misti Rivera on 01/23/2019 8:11 PM Impressions 01/09/2019 3:04 PM EDT *Significantly limited due to artifact from morbid obesity.* 1. Stable bilateral hypodense renal masses. Elevated Hounsfield units may be artifactual or may be due to hyperdense/proteinaceous material (Bosniak 2). No enhancement. Continued follow-up Ab1 with. 2. Resolution of non-obstructive right nephrolithiasis. 3. Stable 1.6 cm right retroperitoneal nodule as above. 4. Multiple additional findings as outlined. TOTAL CTDIvol: 66.6 mGy POS - [id number] Narrative 01/09/2019 3:04 PM EDT COMPARISON: 09/21/2017. TECHNIQUE: Precontrast views are obtained from the kidneys through the inferior pubic rami. Intravenous contrast is then administered and scanning obtained at ninety seconds from the dome of the liver to inferior pubic rami without oral contrast per renal mass protocol. Multiplanar reformatted images obtained. Automated exposure control utilized. CT ABDOMEN FINDINGS: *Significantly limited due to artifact from morbid obesity.* Lungs/heart: Heart is normal in size. No pericardial effusion. Lung bases are clear. Spleen: Normal. Liver: Normal. Gallbladder/biliary tree: Stable multiple noncalcified gallstones. No biliary dilatation. Pancreas: Stable mild diffuse fatty infiltration. Adrenal glands: Left adrenal gland is normal. There is a stable 1.6 cm soft tissue nodule medial to the right adrenal gland limb. This either represents a retroperitoneal lymph node or exophytic adrenal gland mass. Precontrast Hounsfield units measure 22.5. Vasculature: Mild diffuse arterial calcified plaque. No AAA. Genitourinary: Kidneys are normal in size and shape. Normal enhancement. No hydronephrosis. The right lower renal pole calculus is no longer present. No new calculi. The right lower renal pole parapelvic cyst is stable in size measuring 3 x 2.6 cm. Precontrast Hounsfield units measure 72.2 and postcontrast 74.0. The exophytic anterior left mid renal pole hypodense mass is stable in size measuring 7.8 x 6.6 cm. Precontrast Hounsfield units measure 108 and postcontrast enhancement in its measure 114. No perinephric fluid collections. Gastrointestinal tract: Moderate diffuse colonic diverticulosis. Stomach and imaged small bowel are normal. Peritoneum/retroperitoneum: No bulky lymphadenopathy, ascites or fluid collections. Musculoskeletal: Morbid obesity. Stable severe multilevel lumbar spine degenerative disc disease and facet arthropathy and chronic right 10th rib fracture deformity. No destructive bone lesions. Procedure Note Neel Ovalles MD - 01/09/2019 COMPARISON: 09/21/2017. TECHNIQUE: Precontrast views are obtained from the kidneys through theinferior pubic rami. Intravenous contrast is then administered andscanning obtained at ninety seconds from the dome of the liver to inferiorpubic rami without oral contrast per renal mass protocol. Multiplanarreformatted images obtained. Automated exposure control utilized. CT ABDOMEN FINDINGS: *Significantly limited due to artifact from morbid obesity.* Lungs/heart: Heart is normal in size. No pericardial effusion. Lungbases are clear. Spleen: Normal. Liver: Normal. Gallbladder/biliary tree: Stable multiple noncalcified gallstones. Nobiliary dilatation. Pancreas: Stable mild diffuse fatty infiltration. Adrenal glands: Left adrenal gland is normal. There is a stable 1.6 cmsoft tissue nodule medial to the right adrenal gland limb. This eitherrepresents a retroperitoneal lymph node or exophytic adrenal gland mass.Precontrast Hounsfield units measure 22.5. Vasculature: Mild diffuse arterial calcified plaque. No AAA. Genitourinary: Kidneys are normal in size and shape. Normal enhancement.No hydronephrosis. The right lower renal pole calculus is no longerpresent. No new calculi. The right lower renal pole parapelvic cyst isstable in size measuring 3 x 2.6 cm. Precontrast Hounsfield units [id number] and postcontrast 74.0. The exophytic anterior left mid renal polehypodense mass is stable in size measuring 7.8 x 6.6 cm. PrecontrastHounsfield units measure 108 and postcontrast enhancement in its [id number]. No perinephric fluid collections. Gastrointestinal tract: Moderate diffuse colonic diverticulosis. Stomachand imaged small bowel are normal. Peritoneum/retroperitoneum: No bulky lymphadenopathy, ascites or fluidcollections. Musculoskeletal: Morbid obesity. Stable severe multilevel lumbar spinedegenerative disc disease and facet arthropathy and chronic right 10th ribfracture deformity. No destructive bone lesions. IMPRESSION: *Significantly limited due to artifact from morbid obesity.* 1. Stable bilateral hypodense renal masses. Elevated Hounsfield unitsmay be artifactual or may be due to hyperdense/proteinaceous material(Bosniak 2). No enhancement. Continued follow-up Ab1 with. 2. Resolution of non-obstructive right nephrolithiasis. 3. Stable 1.6 cm right retroperitoneal nodule as above. 4. Multiple additional findings as outlined. 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 It is not the complete legal health record.[facility]
[2024-11-14 13:38] LABS: Appearance Urine Cloudy; Glucose Urine UA Negative (Negative); PH 5.5 (5.0-9.0); Specific Gravity - Urine 1.010 (1.005-1.025); UMIC TRIGGER UACC YES
[2024-11-14 13:40] LABS: UACC Culture Trigger YES
[2024-11-14 16:21] LABS: Resp Syncy Virus RNA Qual PCR NEGATIVE (Negative); SARS COV2 PCR INHOUSE NEGATIVE (Negative)
[2024-11-14 16:36] LABS: Troponin-I High Sensitivity 31.8 ng/L (<3.5-35.0)
--- NOTE | 2024-11-14 17:20 | PM.IMHP ---
History of Present Illness Date of Service: 11/14/24 Chief Complaint: sob 73M PMH ARIEL, morbid obesity, chronic diastolic CHF, CKD 4, diabetes, paroxysmal AFib on Eliquis presented with shortness of breath. Patient reports shortness of breath has been ongoing for several months. Worse on exertion. Relieved by rest. Has been increasing over the past few weeks. Went to [place] who instructed patient to come to the ED. patient reports recent weight gain and was instructed to increase torsemide and started on metolazone. Patient denies any fever or chills or chest pain. Denies any hematochezia or melena. He does report dysuria In ED, CT head unremarkable and chest x-ray with mild interstitial lung edema, UA positive, creatinine increased from baseline at 3.86. BNP slightly increased from baseline 113. hgb decreased to 10.4. Review of Systems Review of Systems: Yes all other systems are reviewed and are negative [facility] Medical History ARIEL (obstructive sleep apnea) CHF (congestive heart failure) Abnormal CT of the abdomen Morbid obesity Chronic atrial fibrillation History of ESBL E. 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 Hypertension Diabetes Kidney disease Surgical History History of surgery on lower extremity Hx of tonsillectomy H/O colonoscopy S/P ERCP Social History Household Members: Spouse Housing: House Are you a primary care rep to a significant other at home: No Do you presently have visiting nurse or other home services: Yes ([employer] OR [employer] EQUIPMENT T[employer]ER 3x/week) Alcohol intake: never Comment: pt refuses Patient Tobacco Use Status: Former Tobacco user Advance Directives: Yes Advance Directives on File: Yes Advance Directives Date on File: 05/16/22 Do you have a plan to hurt others: No Plan service: Yes Current occupational status: retired Meds Allergies Allergy/AdvReac Type Severity Reaction Status Date / Time Penicillins AdvReac Intermediate HALLUCINATIONS, Verified 11/14/24 11:03 SWEATS Active Medications: Current Medications Acetaminophen (Acetaminophen 325 Mg Tablet) 650 mg PO Q6H PRN PRN Reason: Pain, Mild 1-3,fever,headache Calcium Carbonate (Calcium Carbonate 750 Mg Tab.Chew) 750 mg PO Q4H PRN PRN Reason: Heartburn Ceftriaxone Sodium (Ceftriaxone Sodium 1 Gm Vial) 1 gm IVPUSH Q24H [place] Dextrose (Dextrose 50 % 25 Gm/50 Ml Syringe) 25 gm IVPUSH Q15M PRN; Protocol PRN Reason: per Hypoglycemia Standing Ord. Glucose (Glucose Gel 15 Gm Gel..Gram.) 15 gm PO Q15M PRN; Protocol PRN Reason: per Hypoglycemia Standing Ord. Insulin Human Lispro (Insulin Lispro 100 Unit/Ml 3 Ml Vial) 0 unit SUBCUT QIDACHS [facility]; Protocol Magnesium Hydroxide (Milk Of Magnesia 30 Ml Oral.Susp) 30 ml PO DAILY PRN PRN Reason: Constipation Melatonin (Melatonin 3 Mg Tablet) 6 mg PO BEDTIME PRN PRN Reason: Insomnia Sodium Chloride (0.9 % Sodium Chloride Flush 3 Ml Syringe) [address] [facility] Home Medications ?Medication ?Instructions ?Recorded ?Confirmed ?Last Taken ?Type cholecalciferol (vitamin D3) 50 50 mcg PO DAILY 11/03/20 08/06/24 03/30/23 History mcg (2,000 unit) capsule cyanocobalamin (vitamin B-12) 100 200 mcg PO DAILY 05/02/22 08/06/24 03/30/23 History mcg tablet rosuvastatin 40 mg tablet 40 mg PO BEDTIME 05/02/22 08/06/24 03/29/23 History ascorbic acid (vitamin C) 1,000 mg 500 mg PO ONCE 11/13/23 08/06/24 Unknown History tablet (Vitamin C) amlodipine 5 mg tablet 10 mg PO DAILY@119911/29/23 08/06/24 Unknown History allopurinol 300 mg tablet 300 mg PO DAILY 05/08/24 08/06/24 Unknown History insulin aspart U-100 100 unit/mL 0.12 unit subcut DAILY@1200 05/08/24 08/06/24 Unknown History subcutaneous solution (Novolog U-100 Insulin aspart) insulin glargine 100 unit/mL (3 42 unit subcut BEDTIME@2100 05/08/24 08/06/24 Unknown History mL) subcutaneous pen (Lantus Solostar U-100 Insulin) torsemide 20 mg tablet 80 mg PO DAILY 05/08/24 08/06/24 Unknown History methenamine hippurate 1 gram tablet 1 g PO DAILY 09/12/24 Unknown History Physical Exam Vital Signs and Narrative: Vital Signs: Last Vital Signs Temp 97.7 F 11/14/24 14:00 Pulse 67 11/14/24 16:13 Resp 16 11/14/24 16:13 BP 112/51 L 11/14/24 16:13 Pulse Ox 98 11/14/24 16:13 O2 Del Method Room Air 11/14/24 16:13 BMI result Body Mass Index 55.3 General: AO X 3, no acute distress Resp: CTA bilateral, no accessory muscles used CVS: S1,S2,RRR, 4+ edema with skin changes GI: soft, non tender, non distended Neuro: motor grossly intact, alert Psych: appropriate affect, appropriate insight Results Labs 11/14/24 12:01 11/14/24 12:01 Labs: Laboratory Results - last 24 hr 11/14/24 11/14/24 11/14/24 11:59 12:01 12:08 MCV 95.2 MCH 31.1 MCHC 32.7 RDW 14.8 Plt Count 219 MPV 11.7 Immature Gran % (Auto) 0.8 H Neut % (Auto) 87.1 H Lymph % (Auto) 5.1 L Dickenson % (Auto) 5.1 Eos % (Auto) 1.6 Baso % (Auto) 0.3 Lymph # (Auto) 0.6 L Dickenson # (Auto) 0.6 Eos # (Auto) 0.2 Baso # (Auto) 0.0 Abs Immat Gran (auto) 0.10 H Absolute Neuts (auto) 10.3 H Absolute Nucleated RBC 0.000 Nucleated RBC % (auto) 0.0 VBG pH 7.38 VBG pCO2 47 VBG pO2 32 VBG HCO3 28 H VBG O2 Saturation 39.0 VBG Base Excess 2.7 Anion Gap 19 Estim Creat Clear Calc 27.4 Estimated GFR 15 Random Glucose 205 H Lactic Acid 1.0 Calcium 8.7 Magnesium 1.9 Total Bilirubin 0.4 AST 17 ALT 8 Alkaline Phosphatase 62 B-Natriuretic Peptide 113 H Total Protein 7.4 Albumin 3.8 Urine Color Urine Appearance Urine pH Ur Specific Murchison Urine Protein Urine Glucose (UA) Urine Ketones Urine Blood Urine Nitrite Ur Leukocyte Esterase Urine RBC Urine WBC Ur Squamous Epith Cells Urine Bacteria Hyaline Casts Stool Occult Blood POSITIVE Influenza Type A (PCR) Influenza Type B (PCR) RSV RNA Qual (PCR) SARS-CoV-2 RNA (RT-PCR) 11/14/24 11/14/24 13:28 15:35 MCV MCH MCHC RDW Plt Count MPV Immature Gran % (Auto) Neut % (Auto) Lymph % (Auto) Dickenson % (Auto) Eos % (Auto) Baso % (Auto) Lymph # (Auto) Dickenson # (Auto) Eos # (Auto) Baso # (Auto) Abs Immat Gran (auto) Absolute Neuts (auto) Absolute Nucleated RBC Nucleated RBC % (auto) VBG pH VBG pCO2 VBG pO2 VBG HCO3 VBG O2 Saturation VBG Base Excess Anion Gap Estim Creat Clear Calc Estimated GFR Random Glucose Lactic Acid Calcium Magnesium Total Bilirubin AST ALT Alkaline Phosphatase B-Natriuretic Peptide Total Protein Albumin Urine Color Yellow Urine Appearance Cloudy Urine pH 5.5 Ur Specific Murchison 1.010 Urine Protein Negative Urine Glucose (UA) Negative Urine Ketones Negative Urine Blood Negative Urine Nitrite Negative Ur Leukocyte Esterase Large (3+) H Urine RBC 0-2 Urine WBC >50 H Ur Squamous Epith Cells 0-2 Urine Bacteria 4+ Hyaline Casts 3-5 Stool Occult Blood Influenza Type A (PCR) NEGATIVE Influenza Type B (PCR) NEGATIVE RSV RNA Qual (PCR) NEGATIVE SARS-CoV-2 RNA (RT-PCR) NEGATIVE Imaging Radiologist's Impressions: Impressions Chest X-Ray 11/14/24 10:17 IMPRESSION: Mild interstitial lung edema versus acute small airway inflammatory process. Electronically signed by: Erlin Longoria MD 11/14/2024 11:34 AM EDT RP Head CT 11/14/24 15:53 IMPRESSION: No acute intracranial process seen. Surgical triston along the left medial optic globe likely from previous melanoma surgery. Electronically signed by: Norbert Shine MD 11/14/2024 04:40 PM EDT RP Assessment and Plan (1) CHF (congestive heart failure): Status: Acute Plan 73M PMH ARIEL, morbid obesity, chronic diastolic CHF, CKD 4, diabetes, paroxysmal AFib on Eliquis presented with shortness of breath Shortness of breath Multifactorial: Obesity, anemia, CHF Acute on chronic diastolic CHF and right-sided CHF We will give 1 dose of IV Lasix, continue oral furosemide, monitor Acute unspecified anemia Differential includes chronic blood loss on Eliquis versus due to CKD will hold Eliquis for now, GI eval Monitor hemoglobin Acute kidney injury on CKD 4 ? Cardiorenal, check response to IV diuresis Nephro eval Rule out obstruction, check bladder scans Urinary tract infection Ceftriaxone, follow up cultures Morbid obesity Weight loss recommended Diabetes Basal bolus insulin Paroxysmal AFib Hold Eliquis as mentioned DVT prophylaxis-mechanical due to possible bleed Full Code Quality Stroke Does the patient have a stroke diagnosis?: No VTE Prior VTE?: No VTE Risk Level:: Medical - moderate - high VTE Device Contraindication: N/A - Device Ordered VTE Drug Contraindication: Treatment Not Tolerated
[2024-11-14 17:21] LABS: Iron 38 mcg/dL (45-160); Percent Iron Saturation 15 % (15-50); Total Iron Binding Capacity 256 mcg/dL (228-428); Unsaturated Iron Binding 218 ug/dL
[2024-11-14 17:37] LABS: Ferritin 73 ng/mL (20-250)
--- NOTE | 2024-11-14 18:25 | PHA.MEDREC ---
Addendum entered by Adia Jhaveri RPh 11/14/24 21:11: reviewed by [facility]. Original Note: Pharmacy Consult ? Medication Reconciliation Pharmacy has completed the medication reconciliation. Patient had a list of his medications with him. Patient states he no longer takes Potassium 20 destiny and Rosuvastin 40 mg. patient confirmed Insulin Glargine 48 units at bedtime and Insulin aspart 10 units tid. Patient fills all his medications through the [facility]. Patient last too his medications today.
[2024-11-14] MEDS: Furosemide 100 MG/10 ML VIAL 60 MG IVPUSH (18:43)
[2024-11-14 21:21] LABS: Glucose, Whole Blood 233 mg/dL (60-115)
[2024-11-14] MEDS: Insulin Glargine,Hum.rec.anlog 100 UNIT/ML 10 ML VIAL 48 UNIT SUBCUT (21:36)
[2024-11-15] VITALS (10 sets, daily range): BP systolic 115–155; BP diastolic 31–88; PULSE 60–106; RESP 14–20; TEMP 36–36.9; O2SAT 98–100; BMI 54.2
[2024-11-15 00:02] LABS: Glucose, Whole Blood 81 mg/dL (60-115)
[2024-11-15] MEDS: 0.9 % Sodium Chloride Flush 3 ML SYRINGE IVFLUSH ×3 (01:12→22:49)
[2024-11-15 04:44] LABS: Glucose, Whole Blood 84 mg/dL (60-115)
[2024-11-15 05:24] LABS: Hematocrit 30.9 % (42.0-52.0); Hemoglobin 10.1 g/dl (14.0-18.0); Mean Corpuscular HGB Conc 32.7 g/dl (31.0-36.0); Mean Corpuscular Hemoglobin 30.8 pg (27.0-33.0); Mean Corpuscular Volume 94.2 fL (80.0-98.0); NRBC Abs Auto 0.000 X10*3/uL (0.0-0.012); NRBC Pct Auto 0.0 /100WBC (0.0-0.2); Platelet Count 207 X10*3/uL (160-400); Red Blood Count 3.28 X10*6/uL (4.60-5.80); White Blood Count 10.6 X10*3/uL (4.8-10.8)
[2024-11-15 05:49] LABS: Alanine Aminotransferase 6 U/L (0-40); Albumin Level 3.5 g/dL (3.5-5.0); Alkaline Phosphatase 62 U/L (39-117); Anion Gap 18 (12-20); Aspartate Amino Transferase 17 U/L (5-37); Calcium 8.6 mg/dL (8.4-10.2); Carbon Dioxide 26 mmol/L (22-29); Chloride 99 mmol/L (96-108); Creatinine Clr Calc Pharmacy 29.8; Estimated Glomerular Filt Rate 17; Magnesium 1.9 mg/dL (1.6-2.6); Potassium 3.4 mmol/L (3.3-5.1); Sodium 140 mmol/L (135-145); Total Protein 6.8 g/dL (6.5-8.0)
[2024-11-15 06:02] LABS: Blood Urea Nitrogen 138 mg/dL (9-16)
[2024-11-15 06:13] LABS: Folate 11.1 ng/mL (> or = 4.0); Vitamin B12 1604 pg/mL (200-900)
--- NOTE | 2024-11-15 07:00 | CA_ITS ---
Transthoracic Echocardiogram Patient (Last, First, Middle): Geovanni Jimenez H Gender: Male Date of : 1950 Age: 74 Procedure Date: 11/15/2024 Procedure Type: Transthoracic Echocardiogram Location: ER Height: 177. cm Weight: 174.64 kg BSA: 2.75 m2 Heart Rate: 78 bpm BP: 137 / 88 mmHg Tipple Supervisor: KONG Referring MD: Dedrick Leos MD Symptoms: sob Study Quality: Technically Difficult w/Contrast ECG Rhythm: Atrial Fibrillation Conclusions: - Normal left ventricular size and systolic function. There is mildly increased left ventricular wall thickness. The visually estimated ejection fraction is between 55-60%. There is no evidence of regional wall motion abnormalities. - Moderately increased right ventricular cavity size. There is normal right ventricular systolic function. - The left atrium is severely dilated. - There is mild aortic valve stenosis. Findings Procedure Information Contrast agent, definity, is being given per protocol without apparent complications. Left Ventricle Normal left ventricular size and systolic function. There is mildly increased left ventricular wall thickness. The visually estimated ejection fraction is between 55-60%. There is no evidence of regional wall motion abnormalities. Diastolic function is indeterminate on the basis of available data. Right Ventricle Moderately increased right ventricular cavity size. There is normal right ventricular systolic function. Atria The left atrium is severely dilated. The right atrium is mildly dilated. Aortic Valve There is mild calcification of the aortic valve. There is mild aortic valve stenosis. The peak aortic velocity is 2.13 m/s. The aortic valve area is 1.39 cm2. There is no aortic valve regurgitation. Mitral Valve The mitral valve appears normal. There is mild mitral annular calcification. There is no mitral valve regurgitation. There is no mitral valve stenosis. Pulmonic Valve The pulmonic valve is likely normal. Tricuspid Valve Normal tricuspid valve structure. There is trace tricuspid valve regurgitation. The right ventricular systolic pressure is 30 mmHg. Moderately elevated right atrial pressure. There is no evidence of pulmonary hypertension. Great Vessels There is mild dilatation of the sinuses of Valsalva, mild dilatation of the ascending aorta measuring 3.70 cm, and mild dilatation of the aortic arch measuring 3.70 cm. The visualized portions of the pulmonary artery and branches are normal. Venous The inferior vena cava is dilated and collapses greater than 50% with inspiration. Pericardium/Pleural There is no evidence of pericardial effusion. Prior Study Comparison Changes noted compared to prior study dated: 04/02/2023. Moderately increased right ventricle with normal RV function. Measurements 2D Linear Measurements IVSd: 1.21 0.6-0.9/0.6-1.0 cm LVIDd: 5.49 3.9-5.3/4.2-5.9 cm LVIDd Index: 2.00 2.4-3.2/2.2-3.1 cm/m2 LVIDs: 3.54 2.0-3.6 cm LVPWd: 1.21 0.7-1.1 cm LA Diam: 5.00 2.7-3.8/3.0-4.0 cm LAIDs Index: 1.82 1.5-2.3 cm/m2 LV Mass: 342.62 67-162/88-224 g LV Mass Index: 124.59 43-95/49-115 g/m2 LVOT Diam: 1.70 3.0+(-)1.3 cm 2D Systolic Function EF 4C: 56.70 >55% EF 2C: 55.10 >55% EF BiP: 56.30 >55% Mitral Valve MV VTI: 0.52 MV Pk Omar: 1.80 MV Mn Omar: 1.07 MV Pk Grad: 13.00 MV Mn Grad: 6.00 MV Pk E: 1.65 MV Decel Time: 397.00 E'Lateral: 13.40 E'Medial: 9.03 E/E' Med: 18.30 E/E' Lat: 12.30 PHT: 116.00 MVA PHT: 1.90 MVA Continuity: 1.27 Decel Cataño: 4.22 Aortic Valve AoV Pk Omar: 2.13 AoV Mn Omar: 1.54 AoV VTI: 0.47 AoV Pk Grad: 18.00 Aov Mn Grad: 11.00 ITZ Cont.VTI: 1.39 LVOT LVOT Pk Omar: 1.35 LVOT Mn Omar: 0.96 LVOT VTI: 0.29 LVOT Pk Grad: 7.00 LVOT Mn Grad: 4.00 LVOT Diam: 1.70 LVOT Area: 2.27 Diastolic Function MV Pk E: 1.65 E'Medial: 9.03 E/E' Med: 18.30 E' Laterial: 13.40 E/E' Lat: 12.30 Right Ventricle TAPSE (mm): 20.10 TVS' Omar: 11.90 Tricuspid Valve TR Pk Omar: 2.32 TR Pk Grad: 22.00 RA Press: 8.00 RVSP: 30.00 Great Vessels Aorta Sinus of Valsalva: 3.80 2.0-3.5 cm Ao Asc: 3.70 2.1-3.4 cm Ao Arch: 3.70 Pulmonary Valve PV Pk Omar: 1.29 Peak PV Grad: 7.00 Updated in Other Vendor System with Status of Final Jerardo Rojas MD electronically signed on 11/16/2024 9:11:53 PM with status of Final
[2024-11-15 07:19] LABS: Glucose, Whole Blood 134 mg/dL (60-115)
--- NOTE | 2024-11-15 09:30 | PM.CNNEP ---
History of Present Illness Reason for Consult Consult date: 11/15/24 Chief Complaint Chief complaint: dizzy History of Present Illness Narrative: 74 y/o male with a medical history of ARIEL, morbid obesity, chronic CHF, CKD4, diabetes, paroxysmal afib on eliquis. Presented 11/14 at recommendation of [facility] PCP due to hypotension and shortness of breath, fatigue, weakness. Pt reports he has been having exertional shortness of breath that improves with rest for several months, but that he felt worse than usual yesterday. Torsemide and metolazone increased recently due to weight gain and dyspnea. Nephrology consulted for MARGOTH on CKD. creatinine 3.86 11/14, this a.m. 3.49. prior to hospitalization, creatinine 3.67 on 11/05, prior to his baseline ~1.9-2.7. Chest xray with mild interstitial lung edema vs acute small airway process. patient reported dysuria, UA with WBCs and leukocyte esterace, started on abx, urine culture is pending. Hgb decreased from baseline to 10.4. 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 He is not sure what the cause of his CKD is. He states he came in after his PCP advised he do so due to low blood pressures at home and feeling short of breath and weak. He states he is feeling much better this morning. He received one dose of 60mg IVP lasix yesterday. He states he urinates about 50mL in urinal every hour, has been for the whole night, though this is not that unusual for him. He states he was previously having pressure in his chest after exertion but has not felt this today. He states breathing is more comfortable than yesterday but still has baseline dyspnea. He denies other new symptoms, changes, concerns. Review of Systems Constitutional: Reports weakness Cardiovascular: Denies chest pain, Denies leg edema, Denies lightheadedness, Reports dyspnea and Reports dyspnea on exertion Respiratory: Reports dyspnea and Reports dyspnea on exertion Gastrointestinal: Denies abdominal pain, Denies diarrhea, Denies nausea and Denies vomiting Genitourinary: Denies dysuria, Denies flank pain, Reports urinary frequency and Reports urinary urgency Musculoskeletal: Denies back pain and Denies joint swelling Skin/Breast: Denies rash Reports weakness PMFSH Past Medical History Medical History ARIEL (obstructive sleep apnea) CHF (congestive heart failure) Abnormal CT of the abdomen Morbid obesity Chronic atrial fibrillation History of ESBL E. 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 Hypertension Diabetes Kidney disease Surgical History Surgical History History of surgery on lower extremity Hx of tonsillectomy H/O colonoscopy S/P ERCP Social History Social History Household Members: Spouse Housing: House Are you a primary rn primary care to a significant other at home: No Do you presently have visiting nurse or other home services: Yes ([employer] 3x/week) Alcohol intake: never Comment: pt refuses Patient Tobacco Use Status: Former Tobacco user Advance Directives: Yes Advance Directives on File: Yes Advance Directives Date on File: 05/16/22 Do you have a plan to hurt others: No Plan Nutrition Risks: No Nutritional Risk service: Yes Current occupational status: retired Meds Allergies Allergy/AdvReac Type Severity Reaction Status Date / Time Penicillins AdvReac Intermediate HALLUCINATIONS, Verified 11/14/24 11:03 SWEATS Active Medications: Current Medications Acetaminophen (Acetaminophen 325 Mg Tablet) 650 mg PO Q6H PRN PRN Reason: Pain, Mild 1-3,fever,headache Last Admin: 11/14/24 21:36 Dose: 650 mg Allopurinol (Allopurinol 300 Mg Tablet) 300 mg PO DAILY [facility] Last Admin: 11/15/24 09:28 Dose: 300 mg Ascorbic Acid (Ascorbic Acid 500 Mg Tablet) 500 mg PO DAILY [facility] Last Admin: 11/15/24 09:28 Dose: 500 mg Calcium Carbonate (Calcium Carbonate 750 Mg Tab.Chew) 750 mg PO Q4H PRN PRN Reason: Heartburn Ceftriaxone Sodium (Ceftriaxone Sodium 1 Gm Vial) 1 gm IVPUSH Q24H [facility] Last Admin: 11/14/24 18:43 Dose: 1 gm Cyanocobalamin (Cyanocobalamin (Vitamin B-12) 100 Mcg Tablet) 100 mcg PO DAILY [facility] Last Admin: 11/15/24 09:28 Dose: 100 mcg Dextrose (Dextrose 50 % 25 Gm/50 Ml Syringe) 25 gm IVPUSH Q15M PRN; Protocol PRN Reason: per Hypoglycemia Standing Ord. Glucose (Glucose Gel 15 Gm Gel..Gram.) 15 gm PO Q15M PRN; Protocol PRN Reason: per Hypoglycemia Standing Ord. Insulin Glargine (Insulin Glargine,Hum.Rec.Anlog 100 Unit/Ml 10 Ml Vial) 48 unit SUBCUT BEDTIME@2100 [facility] Last Admin: 11/14/24 21:36 Dose: 48 unit Insulin Human Lispro (Insulin Lispro 100 Unit/Ml 3 Ml Vial) 0 unit SUBCUT QIDACHS [facility]; Protocol Last Admin: 11/15/24 07:17 Dose: Not Given Magnesium Hydroxide (Milk Of Magnesia 30 Ml Oral.Susp) 30 ml PO DAILY PRN PRN Reason: Constipation Melatonin (Melatonin 3 Mg Tablet) 6 mg PO BEDTIME PRN PRN Reason: Insomnia Methenamine Hippurate (Methenamine Hippurate 1 Gm Tablet) 1 gm PO BID [facility] Last Admin: 11/15/24 09:28 Dose: 1 gm Sodium Chloride (0.9 % Sodium Chloride Flush 3 Ml Syringe) 3 ml IVFLUSH QSHIFT [facility] Last Admin: 11/15/24 07:35 Dose: Not Given Tamsulosin HCl (Tamsulosin Hcl 0.4 Mg Capsule) 0.4 mg PO BEDTIME [facility] Last Admin: 11/14/24 21:36 Dose: 0.4 mg Torsemide (Torsemide 20 Mg Tablet) 80 mg PO BID [facility]; Protocol Last Admin: 11/15/24 09:28 Dose: 80 mg Vitamin D (Cholecalciferol (Vitamin D3) 25 Mcg Tablet) 50 mcg PO DAILY [facility] Last Admin: 11/15/24 09:28 Dose: 50 mcg Home Medications ?Medication ?Instructions ?Recorded ?Confirmed ?Last Taken ?Type cholecalciferol (vitamin D3) 50 50 mcg PO DAILY 11/03/20 11/14/24 11/14/24 History mcg (2,000 unit) capsule cyanocobalamin (vitamin B-12) 100 100 mcg PO DAILY 05/02/22 11/14/24 11/14/24 History mcg tablet ascorbic acid (vitamin C) 1,000 mg 500 mg PO DAILY 11/13/23 11/14/24 11/14/24 History tablet (Vitamin C) amlodipine 5 mg tablet 10 mg PO DAILY@1200 11/29/23 11/14/24 11/14/24 History allopurinol 300 mg tablet 300 mg PO DAILY 05/08/24 11/14/24 11/14/24 History insulin aspart U-100 100 unit/mL 10 unit subcut TID 05/08/24 11/14/24 11/14/24 History subcutaneous solution (Novolog U-100 Insulin aspart) insulin glargine 100 unit/mL (3 48 unit subcut BEDTIME@2100 05/08/24 11/14/24 11/14/24 History mL) subcutaneous pen (Lantus Solostar U-100 Insulin) torsemide 20 mg tablet 80 mg PO BID 05/08/24 11/14/24 11/14/24 History methenamine hippurate 1 gram tablet 1 g PO BID 09/12/24 11/14/24 11/14/24 History losartan 50 mg tablet 50 mg PO DAILY@1200 11/14/24 11/14/24 11/14/24 History metolazone 2.5 mg tablet 2.5 mg PO Q48H PRN weight gain 11/14/24 11/14/24 11/14/24 History tamsulosin 0.4 mg capsule 0.4 mg PO BEDTIME 11/14/24 11/14/24 11/14/24 History Physical Exam Vital Signs: Last Vital Signs Temp 98.2 F 11/15/24 08:00 Pulse 78 11/15/24 08:00 Resp 14 11/15/24 08:00 BP 137/88 11/15/24 08:00 Pulse Ox 99 11/15/24 08:00 O2 Del Method Room Air 11/15/24 08:00 BMI result Body Mass Index 55.3 Const General: no acute distress, alert and awake Resp Effort & Inspection: normal respiratory effort and able to speak in complete sentences Auscultation: clear to auscultation bilaterally Cardio Rate: regular rate Rhythm: regular rhythm Heart sounds: S1 normal heart sound present and S2 normal heart sound present GI Palpation (GI): Soft to palpation and nontender General: Yes no CVA tenderness Back/Spine/Pelvis Back: no CVA tenderness Skin Rashes: no rashes Extrem General: No edema Results Lab Results 11/15/24 05:15 11/15/24 05:15 Lab results: Chemistry 11/14/24 11/15/24 12:01 05:15 Sodium 139 140 Potassium 3.5 D 3.4 Carbon Dioxide 26 26 BUN 140 H 138 H Creatinine 3.86 H 3.49 H Calcium 8.7 8.6 Hematology 11/14/24 11/15/24 12:01 05:15 WBC 11.9 H 10.6 Hgb 10.4 L 10.1 L Plt Count 219 207 Urinalysis 11/14/24 13:28 Urine Color Yellow Urine Appearance Cloudy Urine pH 5.5 Ur Specific [place] 1.010 Urine Protein Negative Urine Glucose (UA) Negative Urine Ketones Negative Urine Blood Negative Urine Nitrite Negative Ur Leukocyte Esterase Large (3+) H Urine RBC 0-2 Urine WBC >50 H Ur Squamous Epith Cells 0-2 Hyaline Casts 3-5 Assessment and Plan (1) Acute kidney injury superimposed on CKD: Status: Acute Plan MARGOTH on CKD likely hemodynamic MARGOTH from hypotension patient does not have any overt signs of fluid overload/HCF exacerbation, recommend trialing a diuretic holiday as he is most likely dry. However, if dyspnea worsens or he begins to show signs of fluid overload with diuretic holiday, may initiate IV diuresis. anemia likely secondary to CKD, no indication for epo at this time recommend daily weights, close I&O monitoring recommend daily electrolyte and renal function studies recommend avoiding nephrotoxic agents Discussed with Dr Bob Procedures Date of Service Date of Service: 11/15/24
--- NOTE | 2024-11-15 11:08 | MHC.CM.PN ---
CM met with Patient at bedside, in the ED. Patient lives in a house with his /HCP/Arabella, who will transport to home at dc. Patient has a [employer] 2.5 hours/day, 5 days/week and home/resume said services is the goal. CM has initiated and will follow for dc planning. PCP is Dr. Guzman Elena.
--- NOTE | 2024-11-15 11:22 | HO.PM.IMPN ---
Subjective Subjective Date of Service: 11/15/24 Interval History: sob improved Physical Exam Exam: Exam: General: AO X 3, no acute distress Resp: CTA bilateral, no accessory muscles used CVS: S1,S2,RRR, 4+ edema with skin changes GI: soft, non tender, non distended Neuro: motor grossly intact, alert Psych: appropriate affect, appropriate insight Vital Signs: Vital Signs: Last Vital Signs Temp 98.2 F 11/15/24 08:00 Pulse 78 11/15/24 08:00 Resp 14 11/15/24 08:00 BP 137/88 11/15/24 08:00 Pulse Ox 99 11/15/24 08:00 O2 Del Method Room Air 11/15/24 08:00 BMI result Body Mass Index 55.3 Objective Data Active Medications Acetaminophen (Acetaminophen 325 Mg Tablet) 650 mg PO Q6H PRN PRN Reason: Pain, Mild 1-3,fever,headache Last Admin: 11/14/24 21:36 Dose: 650 mg Documented By: JUAN Allopurinol (Allopurinol 300 Mg Tablet) 300 mg PO DAILY [facility] Last Admin: 11/15/24 09:28 Dose: 300 mg Documented By: JULIA Ascorbic Acid (Ascorbic Acid 500 Mg Tablet) 500 mg PO DAILY [facility] Last Admin: 11/15/24 09:28 Dose: 500 mg Documented By: JULIA Calcium Carbonate (Calcium Carbonate 750 Mg Tab.Chew) 750 mg PO Q4H PRN PRN Reason: Heartburn Ceftriaxone Sodium (Ceftriaxone Sodium 1 Gm Vial) 1 gm IVPUSH Q24H [facility] Last Admin: 11/14/24 18:43 Dose: 1 gm Documented By: PETE Cyanocobalamin (Cyanocobalamin (Vitamin B-12) 100 Mcg Tablet) 100 mcg PO DAILY [facility] Last Admin: 11/15/24 09:28 Dose: 100 mcg Documented By: JULIA Dextrose (Dextrose 50 % 25 Gm/50 Ml Syringe) 25 gm IVPUSH Q15M PRN; Protocol PRN Reason: per Hypoglycemia Standing Ord. Glucose (Glucose Gel 15 Gm Gel..Gram.) 15 gm PO Q15M PRN; Protocol PRN Reason: per Hypoglycemia Standing Ord. Insulin Glargine (Insulin Glargine,Hum.Rec.Anlog 100 Unit/Ml 10 Ml Vial) 48 unit SUBCUT BEDTIME@2100 [facility] Last Admin: 11/14/24 21:36 Dose: 48 unit Documented By: JUAN Insulin Human Lispro (Insulin Lispro 100 Unit/Ml 3 Ml Vial) 0 unit SUBCUT QIDACHS [facility]; Protocol Last Admin: 11/15/24 07:17 Dose: Not Given Documented By: JULIA Non-Admin Reason: No Insulin Coverage Magnesium Hydroxide (Milk Of Magnesia 30 Ml Oral.Susp) 30 ml PO DAILY PRN PRN Reason: Constipation Melatonin (Melatonin 3 Mg Tablet) 6 mg PO BEDTIME PRN PRN Reason: Insomnia Methenamine Hippurate (Methenamine Hippurate 1 Gm Tablet) 1 gm PO BID [facility] Last Admin: 11/15/24 09:28 Dose: 1 gm Documented By: JULIA Sodium Chloride (0.9 % Sodium Chloride Flush 3 Ml Syringe) 3 ml IVFLUSH QSHIFT [facility] Last Admin: 11/15/24 07:35 Dose: Not Given Documented By: JULIA Non-Admin Reason: See Note Tamsulosin HCl (Tamsulosin Hcl 0.4 Mg Capsule) 0.4 mg PO BEDTIME [facility] Last Admin: 11/14/24 21:36 Dose: 0.4 mg Documented By: JUAN Torsemide (Torsemide 20 Mg Tablet) 80 mg PO BID [facility]; Protocol Last Admin: 11/15/24 09:28 Dose: 80 mg Documented By: JULIA Vitamin D (Cholecalciferol (Vitamin D3) 25 Mcg Tablet) 50 mcg PO DAILY [facility] Last Admin: 11/15/24 09:28 Dose: 50 mcg Documented By: JULIA Labs 11/15/24 05:15 11/15/24 05:15 Labs: Laboratory Results - last 24 hr 11/14/24 11/14/24 11/14/24 11:59 12:01 12:08 MCV 95.2 MCH 31.1 MCHC 32.7 RDW 14.8 Plt Count 219 MPV 11.7 Immature Gran % (Auto) 0.8 H Neut % (Auto) 87.1 H Lymph % (Auto) 5.1 L Tift % (Auto) 5.1 Eos % (Auto) 1.6 Baso % (Auto) 0.3 Lymph # (Auto) 0.6 L Tift # (Auto) 0.6 Eos # (Auto) 0.2 Baso # (Auto) 0.0 Abs Immat Gran (auto) 0.10 H Absolute Neuts (auto) 10.3 H Absolute Nucleated RBC 0.000 Nucleated RBC % (auto) 0.0 VBG pH 7.38 VBG pCO2 47 VBG pO2 32 VBG HCO3 28 H VBG O2 Saturation 39.0 VBG Base Excess 2.7 Anion Gap 19 Estim Creat Clear Calc 27.4 Estimated GFR 15 POC Glucose Random Glucose 205 H Lactic Acid 1.0 Calcium 8.7 Magnesium 1.9 Iron 38 L TIBC 256 % Saturation 15 Unsat Iron Binding 218 Ferritin 73 Total Bilirubin 0.4 Direct Bilirubin AST 17 ALT 8 Alkaline Phosphatase 62 B-Natriuretic Peptide 113 H Total Protein 7.4 Albumin 3.8 Vitamin B12 Folate Urine Color Urine Appearance Urine pH Ur Specific [place] Urine Protein Urine Glucose (UA) Urine Ketones Urine Blood Urine Nitrite Ur Leukocyte Esterase Urine RBC Urine WBC Ur Squamous Epith Cells Urine Bacteria Hyaline Casts Stool Occult Blood POSITIVE Influenza Type A (PCR) Influenza Type B (PCR) RSV RNA Qual (PCR) SARS-CoV-2 RNA (RT-PCR) 11/14/24 11/14/24 11/14/24 13:28 15:35 21:16 MCV MCH MCHC RDW Plt Count MPV Immature Gran % (Auto) Neut % (Auto) Lymph % (Auto) Tift % (Auto) Eos % (Auto) Baso % (Auto) Lymph # (Auto) Tift # (Auto) Eos # (Auto) Baso # (Auto) Abs Immat Gran (auto) Absolute Neuts (auto) Absolute Nucleated RBC Nucleated RBC % (auto) VBG pH VBG pCO2 VBG pO2 VBG HCO3 VBG O2 Saturation VBG Base Excess Anion Gap Estim Creat Clear Calc Estimated GFR POC Glucose 233 H Random Glucose Lactic Acid Calcium Magnesium Iron TIBC % Saturation Unsat Iron Binding Ferritin Total Bilirubin Direct Bilirubin AST ALT Alkaline Phosphatase B-Natriuretic Peptide Total Protein Albumin Vitamin B12 Folate Urine Color Yellow Urine Appearance Cloudy Urine pH 5.5 Ur Specific [place] 1.010 Urine Protein Negative Urine Glucose (UA) Negative Urine Ketones Negative Urine Blood Negative Urine Nitrite Negative Ur Leukocyte Esterase Large (3+) H Urine RBC 0-2 Urine WBC >50 H Ur Squamous Epith Cells 0-2 Urine Bacteria 4+ Hyaline Casts 3-5 Stool Occult Blood Influenza Type A (PCR) NEGATIVE Influenza Type B (PCR) NEGATIVE RSV RNA Qual (PCR) NEGATIVE SARS-CoV-2 RNA (RT-PCR) NEGATIVE 11/14/24 11/15/24 11/15/24 23:58 04:40 05:15 MCV 94.2 MCH 30.8 MCHC 32.7 RDW 14.6 Plt Count 207 MPV 11.6 Immature Gran % (Auto) Neut % (Auto) Lymph % (Auto) Tift % (Auto) Eos % (Auto) Baso % (Auto) Lymph # (Auto) Tift # (Auto) Eos # (Auto) Baso # (Auto) Abs Immat Gran (auto) Absolute Neuts (auto) Absolute Nucleated RBC 0.000 Nucleated RBC % (auto) 0.0 VBG pH VBG pCO2 VBG pO2 VBG HCO3 VBG O2 Saturation VBG Base Excess Anion Gap 18 Estim Creat Clear Calc 29.8 Estimated GFR 17 POC Glucose 81 84 Random Glucose 108 Lactic Acid Calcium 8.6 Magnesium 1.9 Iron TIBC % Saturation Unsat Iron Binding Ferritin Total Bilirubin 0.4 Direct Bilirubin 0.2 AST 17 ALT 6 Alkaline Phosphatase 62 B-Natriuretic Peptide Total Protein 6.8 Albumin 3.5 Vitamin B12 1604 H Folate 11.1 Urine Color Urine Appearance Urine pH Ur Specific [place] Urine Protein Urine Glucose (UA) Urine Ketones Urine Blood Urine Nitrite Ur Leukocyte Esterase Urine RBC Urine WBC Ur Squamous Epith Cells Urine Bacteria Hyaline Casts Stool Occult Blood Influenza Type A (PCR) Influenza Type B (PCR) RSV RNA Qual (PCR) SARS-CoV-2 RNA (RT-PCR) 11/15/24 07:12 MCV MCH MCHC RDW Plt Count MPV Immature Gran % (Auto) Neut % (Auto) Lymph % (Auto) Tift % (Auto) Eos % (Auto) Baso % (Auto) Lymph # (Auto) Tift # (Auto) Eos # (Auto) Baso # (Auto) Abs Immat Gran (auto) Absolute Neuts (auto) Absolute Nucleated RBC Nucleated RBC % (auto) VBG pH VBG pCO2 VBG pO2 VBG HCO3 VBG O2 Saturation VBG Base Excess Anion Gap Estim Creat Clear Calc Estimated GFR POC Glucose 134 H Random Glucose Lactic Acid Calcium Magnesium Iron TIBC % Saturation Unsat Iron Binding Ferritin Total Bilirubin Direct Bilirubin AST ALT Alkaline Phosphatase B-Natriuretic Peptide Total Protein Albumin Vitamin B12 Folate Urine Color Urine Appearance Urine pH Ur Specific [place] Urine Protein Urine Glucose (UA) Urine Ketones Urine Blood Urine Nitrite Ur Leukocyte Esterase Urine RBC Urine WBC Ur Squamous Epith Cells Urine Bacteria Hyaline Casts Stool Occult Blood Influenza Type A (PCR) Influenza Type B (PCR) RSV RNA Qual (PCR) SARS-CoV-2 RNA (RT-PCR) Microbiology Microbiology Results: Microbiology 11/14/24 13:26 Urine Culture - Preliminary Urine clean catch - Clean Catch Midstream Culture in progress. Assessment and Plan (1) CHF (congestive heart failure): Status: Acute Plan 73M PMH ARIEL, morbid obesity, chronic diastolic CHF, CKD 4, diabetes, paroxysmal AFib on Eliquis presented with shortness of breath Shortness of breath Multifactorial: Obesity, anemia, CHF improved today Acute on chronic diastolic CHF and right-sided CHF given 1 dose of IV Lasix, continue oral torsemide, monitor Acute unspecified anemia Differential includes chronic blood loss on Eliquis versus due to CKD hold Eliquis for now, GI eval Monitor hemoglobin Acute kidney injury on CKD 4 ? Cardiorenal, seems to have improved with iv lasix Nephro eval Urinary tract infection Ceftriaxone, follow up cultures Morbid obesity Weight loss recommended Diabetes Basal bolus insulin Paroxysmal AFib Hold Eliquis as mentioned DVT prophylaxis-mechanical due to possible bleed Full Code reason for continued hospitalization:july, anemia Quality Stroke Does the patient have a stroke diagnosis?: No VTE Prior VTE?: No VTE Risk Level:: Medical - moderate - high VTE Device Contraindication: N/A - Device Ordered VTE Drug Contraindication: Treatment Not Tolerated
[2024-11-15 12:16] LABS: Glucose, Whole Blood 160 mg/dL (60-115)
[2024-11-15 13:20] LABS: Protein/Creatinine Ratio, Ur 0.57 (<0.2); Total Protein Urine Random 14 mg/dL (<12)
[2024-11-15 17:43] LABS: Glucose, Whole Blood 156 mg/dL (60-115)
[2024-11-15 20:55] LABS: Glucose, Whole Blood 178 mg/dL (60-115)
[2024-11-15] MEDS: Insulin Glargine,Hum.rec.anlog 100 UNIT/ML 10 ML VIAL 48 UNIT SUBCUT (22:47)
[2024-11-16] VITALS (8 sets, daily range): BP systolic 106–148; BP diastolic 37–86; PULSE 57–99; RESP 18–20; TEMP 36–37; O2SAT 97–100
--- NOTE | 2024-11-16 00:20 | CONS_ITS ---
DATE OF SERVICE: 11/15/2024 REFERRING PHYSICIAN: Dr. Leos REASON FOR CONSULTATION: Anemia and Hemoccult-positive stools. HISTORY OF PRESENT ILLNESS: Geovanni is a pleasant 74-year-old man, known to me from previous evaluation. He was last evaluated with GI issues for colonoscopy in July of this year, which was done because of an abnormal CT scan. Findings at that time included multiple polyps which were identified and removed. Pathology showed several adenomas and inflammatory polyp. We reviewed this today. He was admitted to the hospital after presenting to the emergency department with complaints of shortness of breath, worsening prior to admission. He was evaluated in the emergency department with laboratory studies which documented anemia. Hematocrit on admission was 31.8 down from 39.2 on May 31 of this year. He reports no melena and stool occult blood testing was done which was positive. He has no complaints of upper abdominal pain, nausea, vomiting, or diarrhea. He has a history of diabetes, but no prior history of peptic ulcer disease. He does not have chronic reflux. He is not currently on a proton pump inhibitor. PAST MEDICAL HISTORY: 1. Colon polyps as above. 2. Sleep apnea. 3. Congestive heart failure. 4. Elevated body mass index/morbid obesity. 5. Atrial fibrillation, for which he takes Eliquis. 6. Hypertension. 7. Diabetes. 8. Chronic kidney disease. CURRENT MEDICATIONS: Current medication list is reviewed in the chart. ALLERGIES: PENICILLIN. FAMILY HISTORY: This is reviewed with the patient and is noncontributory. SOCIAL HISTORY: There is no current tobacco, alcohol, or substance abuse. REVIEW OF SYSTEMS: SKIN: No pruritus. HEENT: Negative. CARDIOPULMONARY: No shortness of breath or chest pain. GASTROINTESTINAL: As above. GENITOURINARY: Negative. NEUROPSYCHIATRIC: Negative. PHYSICAL EXAMINATION: GENERAL: Shows a pleasant male, lying comfortably in bed. VITAL SIGNS: Reviewed in electronic medical record and are stable. SKIN: Anicteric. HEENT: Shows no scleral icterus. NECK: Without lymphadenopathy or thyromegaly. LUNGS: Clear. HEART: Shows regular rate and rhythm. CARDIOVASCULAR: S1, S2. No murmur. ABDOMEN: Soft without focal masses or tenderness. Bowel sounds are present. No organomegaly is noted. EXTREMITIES: Show stasis changes. LABORATORY DATA AND IMAGING STUDIES: Reviewed. IMPRESSION: Anemia with Hemoccult-positive stools. I would recommend treating him empirically with a proton pump inhibitor to treat any component of gastritis. He will need upper endoscopy as an outpatient. This can be arranged electively. His hematocrit is stable without any signs of active GI bleeding. Thanks for asking me to see him. I will follow him in the hospital with you. MD TOM Gasca/LORI / [id number] NARCISA
[2024-11-16] MEDS: 0.9 % Sodium Chloride Flush 3 ML SYRINGE IVFLUSH ×3 (07:57→22:43)
[2024-11-16 08:01] LABS: Hematocrit 31.7 % (42.0-52.0); Hemoglobin 10.1 g/dl (14.0-18.0); Mean Corpuscular HGB Conc 31.9 g/dl (31.0-36.0); Mean Corpuscular Hemoglobin 30.6 pg (27.0-33.0); Mean Corpuscular Volume 96.1 fL (80.0-98.0); NRBC Abs Auto 0.000 X10*3/uL (0.0-0.012); NRBC Pct Auto 0.0 /100WBC (0.0-0.2); Platelet Count 192 X10*3/uL (160-400); Red Blood Count 3.30 X10*6/uL (4.60-5.80); White Blood Count 10.1 X10*3/uL (4.8-10.8)
--- NOTE | 2024-11-16 09:11 | HO.PM.IMPN ---
Subjective Subjective Date of Service: 11/16/24 Interval History: Overall improved but still some shortness of breath Physical Exam Exam: Exam: General: AO X 3, no acute distress Resp: CTA bilateral, no accessory muscles used CVS: S1,S2,RRR, 2-3+ edema with skin changes GI: soft, non tender, non distended Neuro: motor grossly intact, alert Psych: appropriate affect, appropriate insight Vital Signs: Vital Signs: Last Vital Signs Temp 97.8 F 11/16/24 08:00 Pulse 96 11/16/24 08:00 Resp 18 11/16/24 08:00 BP 142/69 H 11/16/24 08:00 Pulse Ox 100 11/16/24 08:00 O2 Del Method Room Air 11/16/24 08:00 BMI result Body Mass Index 54.2 Objective Data Active Medications Acetaminophen (Acetaminophen 325 Mg Tablet) 650 mg PO Q6H PRN PRN Reason: Pain, Mild 1-3,fever,headache Last Admin: 11/14/24 21:36 Dose: 650 mg Documented By: JUAN Allopurinol (Allopurinol 300 Mg Tablet) 300 mg PO DAILY [facility] Last Admin: 11/16/24 07:57 Dose: 300 mg Documented By: AZRA Ascorbic Acid (Ascorbic Acid 500 Mg Tablet) 500 mg PO DAILY [facility] Last Admin: 11/16/24 07:57 Dose: 500 mg Documented By: AZRA Calcium Carbonate (Calcium Carbonate 750 Mg Tab.Chew) 750 mg PO Q4H PRN PRN Reason: Heartburn Ceftriaxone Sodium (Ceftriaxone Sodium 1 Gm Vial) 1 gm IVPUSH Q24H [facility] Last Admin: 11/15/24 18:10 Dose: 1 gm Documented By: SARAH Cyanocobalamin (Cyanocobalamin (Vitamin B-12) 100 Mcg Tablet) 100 mcg PO DAILY [facility] Last Admin: 11/16/24 07:57 Dose: 100 mcg Documented By: AZRA Dextrose (Dextrose 50 % 25 Gm/50 Ml Syringe) 25 gm IVPUSH Q15M PRN; Protocol PRN Reason: per Hypoglycemia Standing Ord. Glucose (Glucose Gel 15 Gm Gel..Gram.) 15 gm PO Q15M PRN; Protocol PRN Reason: per Hypoglycemia Standing Ord. Insulin Glargine (Insulin Glargine,Hum.Rec.Anlog 100 Unit/Ml 10 Ml Vial) 48 unit SUBCUT BEDTIME@2100 [facility] Last Admin: 11/15/24 22:47 Dose: 48 unit Documented By: SALONI Insulin Human Lispro (Insulin Lispro 100 Unit/Ml 3 Ml Vial) 0 unit SUBCUT QIDACHS [facility]; Protocol Last Admin: 11/15/24 22:48 Dose: 2 unit Documented By: SALONI Magnesium Hydroxide (Milk Of Magnesia 30 Ml Oral.Susp) 30 ml PO DAILY PRN PRN Reason: Constipation Melatonin (Melatonin 3 Mg Tablet) 6 mg PO BEDTIME PRN PRN Reason: Insomnia Methenamine Hippurate (Methenamine Hippurate 1 Gm Tablet) 1 gm PO BID [facility] Last Admin: 11/16/24 07:57 Dose: 1 gm Documented By: AZRA Omeprazole (Omeprazole 40 Mg Capsule.) 40 mg PO DAILY@0630 [facility] Last Admin: 11/16/24 06:35 Dose: 40 mg Documented By: SALONI Sodium Chloride (0.9 % Sodium Chloride Flush 3 Ml Syringe) 3 ml IVFLUSH QSHIFT [facility] Last Admin: 11/16/24 07:57 Dose: 3 ml Documented By: AZRA Tamsulosin HCl (Tamsulosin Hcl 0.4 Mg Capsule) 0.4 mg PO BEDTIME [facility] Last Admin: 11/15/24 22:49 Dose: 0.4 mg Documented By: SALONI Torsemide (Torsemide 20 Mg Tablet) 80 mg PO BID [facility]; Protocol Last Admin: 11/15/24 09:28 Dose: 80 mg Documented By: JULIA Vitamin D (Cholecalciferol (Vitamin D3) 25 Mcg Tablet) 50 mcg PO DAILY [facility] Last Admin: 11/16/24 07:57 Dose: 50 mcg Documented By: AZRA Labs 11/16/24 07:45 11/15/24 05:15 Labs: Laboratory Results - last 24 hr 11/15/24 11/15/24 11/15/24 12:11 12:44 17:07 MCV MCH MCHC RDW Plt Count MPV Absolute Nucleated RBC Nucleated RBC % (auto) POC Glucose 160 H 156 H U Random Total Protein 14 H Urine Creatinine 24.65 Protein/Creatinin Ratio 0.57 H 11/15/24 11/16/24 20:40 07:45 MCV 96.1 MCH 30.6 MCHC 31.9 RDW 14.7 Plt Count 192 MPV 12.2 Absolute Nucleated RBC 0.000 Nucleated RBC % (auto) 0.0 POC Glucose 178 H U Random Total Protein Urine Creatinine Protein/Creatinin Ratio Microbiology Microbiology Results: Microbiology 11/14/24 13:26 Urine Culture - Preliminary Urine clean catch - Clean Catch Midstream Culture in progress. Assessment and Plan (1) CHF (congestive heart failure): Status: Acute Plan 73M PMH ARIEL, morbid obesity, chronic diastolic CHF, CKD 4, diabetes, paroxysmal AFib on Eliquis presented with shortness of breath Shortness of breath Multifactorial: Obesity, anemia, CHF improved with diuresis Acute on chronic diastolic CHF and right-sided CHF given 1 dose of IV Lasix, continue oral torsemide, monitor Acute unspecified anemia chronic blood loss on Eliquis + CKD hold Eliquis for now, GI appreciated question inpatient versus outpatient scope Monitor hemoglobin Acute kidney injury on CKD 4 ? Cardiorenal, seems to have improved with iv lasix Nephro following Urinary tract infection Ceftriaxone, follow up cultures Morbid obesity Weight loss recommended Diabetes Basal bolus insulin Paroxysmal AFib Hold Eliquis as mentioned DVT prophylaxis-mechanical due to possible bleed Full Code reason for continued hospitalization:july, anemia Quality Stroke Does the patient have a stroke diagnosis?: No VTE Prior VTE?: No VTE Risk Level:: Medical - moderate - high VTE Device Contraindication: N/A - Device Ordered VTE Drug Contraindication: Treatment Not Tolerated
[2024-11-16 11:13] LABS: Anion Gap 20 (12-20); Blood Urea Nitrogen 125 mg/dL (9-16); Calcium 8.5 mg/dL (8.4-10.2); Carbon Dioxide 28 mmol/L (22-29); Chloride 96 mmol/L (96-108); Creatinine Clr Calc Pharmacy 28.7; Estimated Glomerular Filt Rate 17; Potassium 3.5 mmol/L (3.3-5.1); Sodium 140 mmol/L (135-145)
[2024-11-16 11:42] LABS: Glucose, Whole Blood 165 mg/dL (60-115)
[2024-11-16 15:40] LABS: Glucose, Whole Blood 166 mg/dL (60-115)
[2024-11-16] MEDS: Milk of Magnesia 30 ML ORAL.SUSP PO (15:44)
[2024-11-16 20:39] LABS: Glucose, Whole Blood 175 mg/dL (60-115)
[2024-11-16] MEDS: Insulin Glargine,Hum.rec.anlog 100 UNIT/ML 10 ML VIAL 48 UNIT SUBCUT (22:39)
[2024-11-17] VITALS (7 sets, daily range): BP systolic 101–164; BP diastolic 50–66; PULSE 58–79; RESP 17–118; TEMP 36–37; O2SAT 98–99
[2024-11-17 03:21] LABS: Glucose, Whole Blood 106 mg/dL (60-115)
[2024-11-17 07:21] LABS: Glucose, Whole Blood 106 mg/dL (60-115)
[2024-11-17 07:52] LABS: Hematocrit 35.7 % (42.0-52.0); Hemoglobin 11.7 g/dl (14.0-18.0); Mean Corpuscular HGB Conc 32.8 g/dl (31.0-36.0); Mean Corpuscular Hemoglobin 31.0 pg (27.0-33.0); Mean Corpuscular Volume 94.4 fL (80.0-98.0); NRBC Abs Auto 0.000 X10*3/uL (0.0-0.012); NRBC Pct Auto 0.0 /100WBC (0.0-0.2); Platelet Count 223 X10*3/uL (160-400); Red Blood Count 3.78 X10*6/uL (4.60-5.80); White Blood Count 11.5 X10*3/uL (4.8-10.8)
[2024-11-17] MEDS: 0.9 % Sodium Chloride Flush 3 ML SYRINGE IVFLUSH ×3 (07:56→21:50)
[2024-11-17 07:57] LABS: Glucose, Whole Blood 129 mg/dL (60-115)
[2024-11-17 08:22] LABS: Anion Gap 21 (12-20); Blood Urea Nitrogen 118 mg/dL (9-16); Calcium 8.9 mg/dL (8.4-10.2); Carbon Dioxide 27 mmol/L (22-29); Chloride 99 mmol/L (96-108); Creatinine Clr Calc Pharmacy 30.6; Estimated Glomerular Filt Rate 18; Potassium 3.5 mmol/L (3.3-5.1); Sodium 143 mmol/L (135-145)
[2024-11-17 11:33] LABS: Glucose, Whole Blood 214 mg/dL (60-115)
--- NOTE | 2024-11-17 11:45 | HO.PM.IMPN ---
Subjective Subjective Date of Service: 11/17/24 Interval History: Overall improved but still some shortness of breath Physical Exam Exam: Exam: General: AO X 3, no acute distress Resp: CTA bilateral, no accessory muscles used CVS: S1,S2,RRR, 2-3+ edema with skin changes GI: soft, non tender, non distended Neuro: motor grossly intact, alert Psych: appropriate affect, appropriate insight Vital Signs: Vital Signs: Last Vital Signs Temp 97.9 F 11/17/24 08:00 Pulse 58 11/17/24 10:37 Resp 18 11/17/24 08:00 BP 101/50 L 11/17/24 10:37 Pulse Ox 99 11/17/24 08:00 O2 Del Method Room Air 11/17/24 08:00 BMI result Body Mass Index 54.2 Objective Data Active Medications Acetaminophen (Acetaminophen 325 Mg Tablet) 650 mg PO Q6H PRN PRN Reason: Pain, Mild 1-3,fever,headache Last Admin: 11/14/24 21:36 Dose: 650 mg Documented By: JUAN Allopurinol (Allopurinol 300 Mg Tablet) 300 mg PO DAILY [facility] Last Admin: 11/17/24 07:55 Dose: 300 mg Documented By: AZRA Ascorbic Acid (Ascorbic Acid 500 Mg Tablet) 500 mg PO DAILY [facility] Last Admin: 11/17/24 07:55 Dose: 500 mg Documented By: AZRA Calcium Carbonate (Calcium Carbonate 750 Mg Tab.Chew) 750 mg PO Q4H PRN PRN Reason: Heartburn Ceftriaxone Sodium (Ceftriaxone Sodium 1 Gm Vial) 1 gm IVPUSH Q24H [facility] [place] Last Admin: 11/16/24 18:15 Dose: 1 gm Documented By: AZRA Cyanocobalamin (Cyanocobalamin (Vitamin B-12) 100 Mcg Tablet) 100 mcg PO DAILY [facility] [place] Last Admin: 11/17/24 07:55 Dose: 100 mcg Documented By: AZRA Dextrose (Dextrose 50 % 25 Gm/50 Ml Syringe) 25 gm IVPUSH Q15M PRN; Protocol PRN Reason: per Hypoglycemia Standing Ord. Glucose (Glucose Gel 15 Gm Gel..Gram.) 15 gm PO Q15M PRN; Protocol PRN Reason: per Hypoglycemia Standing Ord. Insulin Glargine (Insulin Glargine,Hum.Rec.Anlog 100 Unit/Ml 10 Ml Vial) 48 unit SUBCUT BEDTIME@2100 [facility] [place] Last Admin: 11/16/24 22:39 Dose: 48 unit Documented By: NAA Insulin Human Lispro (Insulin Lispro 100 Unit/Ml 3 Ml Vial) 0 unit SUBCUT QIDACHS [facility]; Protocol Last Admin: 11/17/24 07:40 Dose: Not Given Documented By: AZRA Non-Admin Reason: No Insulin Coverage Magnesium Hydroxide (Milk Of Magnesia 30 Ml Oral.Susp) 30 ml PO DAILY PRN PRN Reason: Constipation Last Admin: 11/16/24 15:44 Dose: 30 ml Documented By: AZRA Melatonin (Melatonin 3 Mg Tablet) 6 mg PO BEDTIME PRN PRN Reason: Insomnia Methenamine Hippurate (Methenamine Hippurate 1 Gm Tablet) 1 gm PO BID [facility] [place] Last Admin: 11/17/24 07:55 Dose: 1 gm Documented By: AZRA Omeprazole (Omeprazole 40 Mg Capsule.) 40 mg PO DAILY@0630 [facility] Last Admin: 11/17/24 06:01 Dose: 40 mg Documented By: ANA Sodium Chloride (0.9 % Sodium Chloride Flush 3 Ml Syringe) 3 ml IVFLUSH QSHIFT [facility] [place] Last Admin: 11/17/24 07:56 Dose: 3 ml Documented By: AZRA Tamsulosin HCl (Tamsulosin Hcl 0.4 Mg Capsule) 0.4 mg PO BEDTIME [facility] [place] Last Admin: 11/16/24 22:35 Dose: 0.4 mg Documented By: ANA Torsemide (Torsemide 20 Mg Tablet) 80 mg PO BID [facility]; Protocol Last Admin: 11/17/24 07:55 Dose: 80 mg Documented By: AZRA Vitamin D (Cholecalciferol (Vitamin D3) 25 Mcg Tablet) 50 mcg PO DAILY [facility] Last Admin: 11/17/24 07:55 Dose: 50 mcg Documented By: AZRA Labs 11/17/24 07:26 11/17/24 07:26 Labs: Laboratory Results - last 24 hr 11/16/24 11/16/24 11/16/24 07:32 15:36 20:33 MCV MCH MCHC RDW Plt Count MPV Absolute Nucleated RBC Nucleated RBC % (auto) Anion Gap Estim Creat Clear Calc Estimated GFR POC Glucose 106 166 H 175 H Random Glucose Calcium 11/17/24 11/17/24 11/17/24 03:15 07:26 07:48 MCV 94.4 MCH 31.0 MCHC 32.8 RDW 14.6 Plt Count 223 MPV 12.0 Absolute Nucleated RBC 0.000 Nucleated RBC % (auto) 0.0 Anion Gap 21 H Estim Creat Clear Calc 30.6 Estimated GFR 18 POC Glucose 106 129 H Random Glucose 138 H Calcium 8.9 11/17/24 11:21 MCV MCH MCHC RDW Plt Count MPV Absolute Nucleated RBC Nucleated RBC % (auto) Anion Gap Estim Creat Clear Calc Estimated GFR POC Glucose 214 H Random Glucose Calcium Microbiology Microbiology Results: Microbiology 11/14/24 13:26 Urine Culture - Final Urine clean catch - Clean Catch Midstream Assessment and Plan (1) CHF (congestive heart failure): Status: Acute Plan 73M PMH ARIEL, morbid obesity, chronic diastolic CHF, CKD 4, diabetes, paroxysmal AFib on Eliquis presented with shortness of breath Shortness of breath Multifactorial: Obesity, anemia, CHF improved with diuresis Acute on chronic diastolic CHF and right-sided CHF given 1 dose of IV Lasix, continue maintenance oral torsemide, monitor now appears euvolemic Acute unspecified anemia chronic blood loss on Eliquis + CKD hold Eliquis for now, GI appreciated question inpatient versus outpatient scope Monitor hemoglobin Acute kidney injury on CKD 4 ? Cardiorenal, seems to have improved with iv lasix Nephro following Urinary tract infection Ceftriaxone, culture mixed kulwant Morbid obesity Weight loss recommended Diabetes Basal bolus insulin Paroxysmal AFib Hold Eliquis as mentioned DVT prophylaxis-mechanical due to possible bleed Full Code reason for continued hospitalization:plan for scope Quality Stroke Does the patient have a stroke diagnosis?: No VTE Prior VTE?: No VTE Risk Level:: Medical - moderate - high VTE Device Contraindication: N/A - Device Ordered VTE Drug Contraindication: Treatment Not Tolerated
[2024-11-17 15:58] LABS: Glucose, Whole Blood 127 mg/dL (60-115)
[2024-11-17] MEDS: Milk of Magnesia 30 ML ORAL.SUSP PO (17:55)
[2024-11-17 21:09] LABS: Glucose, Whole Blood 222 mg/dL (60-115)
[2024-11-17] MEDS: Insulin Glargine,Hum.rec.anlog 100 UNIT/ML 10 ML VIAL 48 UNIT SUBCUT (21:56)
[2024-11-18] VITALS (12 sets, daily range): BP systolic 115–147; BP diastolic 57–64; PULSE 58–96; RESP 16–20; TEMP 35.8–36.8; O2SAT 97–100
[2024-11-18 08:25] LABS: Hematocrit 35.9 % (42.0-52.0); Hemoglobin 11.8 g/dl (14.0-18.0); Mean Corpuscular HGB Conc 32.9 g/dl (31.0-36.0); Mean Corpuscular Hemoglobin 31.2 pg (27.0-33.0); Mean Corpuscular Volume 95.0 fL (80.0-98.0); NRBC Abs Auto 0.000 X10*3/uL (0.0-0.012); NRBC Pct Auto 0.0 /100WBC (0.0-0.2); Platelet Count 238 X10*3/uL (160-400); Red Blood Count 3.78 X10*6/uL (4.60-5.80); White Blood Count 13.0 X10*3/uL (4.8-10.8)
[2024-11-18] MEDS: 0.9 % Sodium Chloride Flush 3 ML SYRINGE IVFLUSH ×3 (08:28→20:55)
[2024-11-18 08:43] LABS: Glucose, Whole Blood 180 mg/dL (60-115)
[2024-11-18 08:45] LABS: Anion Gap 19 (12-20); Blood Urea Nitrogen 125 mg/dL (9-16); Calcium 9.1 mg/dL (8.4-10.2); Carbon Dioxide 31 mmol/L (22-29); Chloride 94 mmol/L (96-108); Creatinine Clr Calc Pharmacy 29.4; Estimated Glomerular Filt Rate 17; Potassium 3.8 mmol/L (3.3-5.1); Sodium 140 mmol/L (135-145)
--- NOTE | 2024-11-18 10:55 | HO.PM.IMPN ---
Subjective Subjective Date of Service: 11/18/24 Interval History: Overall improved but still some shortness of breath Physical Exam Exam: Exam: General: AO X 3, no acute distress Resp: CTA bilateral, no accessory muscles used CVS: S1,S2,RRR, 2-3+ edema with skin changes GI: soft, non tender, non distended Neuro: motor grossly intact, alert Psych: appropriate affect, appropriate insight Vital Signs: Vital Signs: Last Vital Signs Temp 98.3 F 11/18/24 08:00 Pulse 70 11/18/24 08:00 Resp 20 11/18/24 08:00 BP 131/57 L 11/18/24 08:27 Pulse Ox 99 11/18/24 08:00 O2 Del Method Room Air 11/18/24 08:00 BMI result Body Mass Index 54.2 Objective Data Active Medications Acetaminophen (Acetaminophen 325 Mg Tablet) 650 mg PO Q6H PRN PRN Reason: Pain, Mild 1-3,fever,headache Last Admin: 11/14/24 21:36 Dose: 650 mg Documented By: JUAN Allopurinol (Allopurinol 300 Mg Tablet) 300 mg PO DAILY [facility] Last Admin: 11/18/24 08:28 Dose: 300 mg Documented By: MELISA Ascorbic Acid (Ascorbic Acid 500 Mg Tablet) 500 mg PO DAILY [facility] Last Admin: 11/18/24 08:28 Dose: 500 mg Documented By: MELISA Calcium Carbonate (Calcium Carbonate 750 Mg Tab.Chew) 750 mg PO Q4H PRN PRN Reason: Heartburn Ceftriaxone Sodium (Ceftriaxone Sodium 1 Gm Vial) 1 gm IVPUSH Q24H [facility] Last Admin: 11/17/24 17:51 Dose: 1 gm Documented By: AZRA Cyanocobalamin (Cyanocobalamin (Vitamin B-12) 100 Mcg Tablet) 100 mcg PO DAILY [facility] Last Admin: 11/18/24 08:27 Dose: 100 mcg Documented By: MELISA Dextrose (Dextrose 50 % 25 Gm/50 Ml Syringe) 25 gm IVPUSH Q15M PRN; Protocol PRN Reason: per Hypoglycemia Standing Ord. Glucose (Glucose Gel 15 Gm Gel..Gram.) 15 gm PO Q15M PRN; Protocol PRN Reason: per Hypoglycemia Standing Ord. Insulin Glargine (Insulin Glargine,Hum.Rec.Anlog 100 Unit/Ml 10 Ml Vial) 48 unit SUBCUT BEDTIME@2100 [facility] Last Admin: 11/17/24 21:56 Dose: 48 unit Documented By: DALILA Insulin Human Lispro (Insulin Lispro 100 Unit/Ml 3 Ml Vial) 0 unit SUBCUT QIDACHS [facility]; Protocol Last Admin: 11/18/24 08:28 Dose: 2 unit Documented By: MELISA Comments: blood sugar 180 Magnesium Hydroxide (Milk Of Magnesia 30 Ml Oral.Susp) 30 ml PO DAILY PRN PRN Reason: Constipation Last Admin: 11/17/24 17:55 Dose: 30 ml Documented By: ALEXANDRAPADomonique Melatonin (Melatonin 3 Mg Tablet) 6 mg PO BEDTIME PRN PRN Reason: Insomnia Methenamine Hippurate (Methenamine Hippurate 1 Gm Tablet) 1 gm PO BID [facility] Last Admin: 11/18/24 08:26 Dose: 1 gm Documented By: MELISA Omeprazole (Omeprazole 40 Mg Capsule.) 40 mg PO DAILY@0630 [facility] Last Admin: 11/18/24 06:16 Dose: 40 mg Documented By: DALILA Sodium Chloride (0.9 % Sodium Chloride Flush 3 Ml Syringe) 3 ml IVFLUSH QSHIFT [facility] Last Admin: 11/18/24 08:28 Dose: 3 ml Documented By: MELISA Tamsulosin HCl (Tamsulosin Hcl 0.4 Mg Capsule) 0.4 mg PO BEDTIME [facility] Last Admin: 11/17/24 21:48 Dose: 0.4 mg Documented By: DALILA Torsemide (Torsemide 20 Mg Tablet) 80 mg PO BID [facility]; Protocol Last Admin: 11/18/24 08:27 Dose: 80 mg Documented By: MELISA Vitamin D (Cholecalciferol (Vitamin D3) 25 Mcg Tablet) 50 mcg PO DAILY [facility] Last Admin: 11/18/24 08:27 Dose: 50 mcg Documented By: MELISA Labs 11/18/24 07:59 11/18/24 07:59 Labs: Laboratory Results - last 24 hr 11/17/24 11/17/24 11/17/24 11:21 15:55 21:03 MCV MCH MCHC RDW Plt Count MPV Absolute Nucleated RBC Nucleated RBC % (auto) Anion Gap Estim Creat Clear Calc Estimated GFR POC Glucose 214 H 127 H 222 H Random Glucose Calcium 11/18/24 11/18/24 07:59 08:27 MCV 95.0 MCH 31.2 MCHC 32.9 RDW 14.6 Plt Count 238 MPV 12.3 Absolute Nucleated RBC 0.000 Nucleated RBC % (auto) 0.0 Anion Gap 19 Estim Creat Clear Calc 29.4 Estimated GFR 17 POC Glucose 180 H Random Glucose 148 H Calcium 9.1 Assessment and Plan (1) CHF (congestive heart failure): Status: Acute Plan 73M PMH ARIEL, morbid obesity, chronic diastolic CHF, CKD 4, diabetes, paroxysmal AFib on Eliquis presented with shortness of breath Shortness of breath Multifactorial: Obesity, anemia, CHF improved with diuresis Acute on chronic diastolic CHF and right-sided CHF given 1 dose of IV Lasix, continue maintenance oral torsemide, monitor now appears euvolemic Acute unspecified anemia chronic blood loss on Eliquis + CKD hold Eliquis for now, GI appreciated question inpatient versus outpatient scope Monitor hemoglobin Acute kidney injury on CKD 4 ? Cardiorenal, stable, nephro following Urinary tract infection Ceftriaxone, culture mixed kulwant Morbid obesity Weight loss recommended Diabetes Basal bolus insulin Paroxysmal AFib Hold Eliquis as mentioned DVT prophylaxis-mechanical due to possible bleed Full Code reason for continued hospitalization:?plan for scope Quality Stroke Does the patient have a stroke diagnosis?: No VTE Prior VTE?: No VTE Risk Level:: Medical - moderate - high VTE Device Contraindication: N/A - Device Ordered VTE Drug Contraindication: Treatment Not Tolerated
[2024-11-18 11:48] LABS: Glucose, Whole Blood 181 mg/dL (60-115)
--- NOTE | 2024-11-18 12:36 | P.PNNP_ITS ---
Subjective Subjective Date of Service: 11/18/24 Interval history: Here with shortness of breath. Following for MARGOTH on CKD. patient reports he feels ok today- states he has been getting up to use the bathroom, thinks he is at his baseline. no new concerns/complaints today. Pt states plan for colonoscopy/GIB workup given anemia tomorrow. Physical Exam 2 Vital Signs: Vital Signs: Last Vital Signs Temp 98.3 F 11/18/24 08:00 Pulse 70 11/18/24 08:00 Resp 20 11/18/24 08:00 BP 131/57 L 11/18/24 08:27 Pulse Ox 99 11/18/24 08:00 O2 Del Method Room Air 11/18/24 08:00 BMI result Body Mass Index 54.2 Const: General: no acute distress, alert and awake Resp: Effort & Inspection: normal respiratory effort and able to speak in complete sentences Auscultation: clear to auscultation bilaterally Cardio: Rate: regular rate Rhythm: regular rhythm Heart sounds: S1 normal heart sound present and S2 normal heart sound present GI: Palpation (GI): Soft to palpation and nontender : General: Yes no CVA tenderness Back/Spine/Pelvis: Back: no CVA tenderness Skin: Rashes: no rashes Extrem: General: No edema Objective Data Labs 11/18/24 07:59 11/18/24 07:59 Labs: Laboratory Results - last 24 hr 11/17/24 11/17/24 11/18/24 15:55 21:03 07:59 WBC 13.0 H RBC 3.78 L Hgb 11.8 L Hct 35.9 L MCV 95.0 MCH 31.2 MCHC 32.9 RDW 14.6 Plt Count 238 MPV 12.3 Absolute Nucleated RBC 0.000 Nucleated RBC % (auto) 0.0 Sodium 140 Potassium 3.8 Chloride 94 L Carbon Dioxide 31 H Anion Gap 19 BUN 125 H Creatinine 3.50 H Estim Creat Clear Calc 29.4 Estimated GFR 17 POC Glucose 127 H 222 H Random Glucose 148 H Calcium 9.1 11/18/24 11/18/24 08:27 11:32 WBC RBC Hgb Hct MCV MCH MCHC RDW Plt Count MPV Absolute Nucleated RBC Nucleated RBC % (auto) Sodium Potassium Chloride Carbon Dioxide Anion Gap BUN Creatinine Estim Creat Clear Calc Estimated GFR POC Glucose 180 H 181 H Random Glucose Calcium Microbiology Microbiology Results: Microbiology 11/14/24 13:26 Urine clean catch - Clean Catch Midstream Urine Culture - Final Procedures Date of Service Date of Service: 11/18/24 Assessment & Plan Assessment and plan (1) Acute kidney injury superimposed on CKD: Status: Acute Plan MARGOTH on CKD likely hemodynamic MARGOTH from hypotension - stable. initial presentation volume status unclear- though given low blood pressures, lack of LE edema, and high dose diuretics, was likely hypovolemic which may have contributed to MARGOTH. Will check uric acid, urine eosinophils given creatinine remains stable without improvement. appears euvolemic today anemia likely secondary to CKD, no indication for epo at this time. Given stability of creatinine, patient is ok for discharge from a renal standpoint- discussed importance of close follow up with his outpatient recovery coordinator Dr Renteria at the [place]. Recommend continuing current diuretic prescription- if patient has significant weight gain, may give metolazone; if significant weight loss, may reduce torsemide dose. Discussed with Dr Malone. Time Spent With Patient Time: Total time managing care of this patient today ____ minutes. Progress Note: Quality Stroke Does the patient have a stroke diagnosis?: No
[2024-11-18 12:54] LABS: EOS Counted 0 CELLS; EOS QC POS YES; EOS Stain Quality OK YES; WBC, Counted 100 CELLS
--- NOTE | 2024-11-18 14:14 | HO.ANESPROP2 ---
Documented by User: Stella Sadler NP 11/18/24 16:06 HPI - Anesthesia Eval Consult details Narrative: 74 yr old male for upper endoscopy Morbid obesity BMI 54.3 Chronic Atrial fibrillation, rate controlled, on eliquis Acute on chronic kidney disease: seen by renal 11/18/24, deemed okay for discharge from renal standpoint, has prn metazolone, may reduce torsemide dose. Acute on chronic diastolic CHF and right-sided CHF: diuresed with IV Lasix, resumed maintenance oral torsemide; echo updated, see below ARIEL Type 2 DM: on insulin, review of BG inpt 180s [facility] Active Problems Active Problems: All Active Problems Acute kidney injury superimposed on CKD (Acute) Dizziness (Acute) Anemia (Acute) Exertional chest pain (Acute) Fistula (Acute) Incomplete emptying of bladder due to benign prostatic hyperplasia (Acute) Complicated urinary tract infection (Acute) Recurrent urinary tract infection (Acute) CKD (chronic kidney disease) stage 3, GFR 30-59 ml/min (Acute) Chronic right heart failure (Acute) Chronic heart failure with preserved ejection fraction (Acute) Preoperative cardiovascular examination (Acute) Acute UTI (Acute) Acute on chronic kidney failure (Acute) Heart failure with preserved ejection fraction (Acute) CHF (congestive heart failure) (Acute) Infection due to ESBL-producing Escherichia coli (Acute) Osteomyelitis (Acute) Lymphedema (Acute) Varicose veins of right lower extremity with inflammation (Acute) Diabetes (Acute) Kidney disease (Acute) Hypertension (Acute) Chronic atrial fibrillation (Acute) Past Medical History Medical History ARIEL (obstructive sleep apnea) CHF (congestive heart failure) Abnormal CT of the abdomen Morbid obesity Chronic atrial fibrillation History of ESBL E. 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 Hypertension Diabetes Kidney disease Family History Family history of problems with anesthesia: No Surgical History Surgical History History of surgery on lower extremity Hx of tonsillectomy H/O colonoscopy S/P ERCP History of Problems with Anesthesia: No Social History Social History Household Members: Spouse Housing: House Are you a primary childcare provider to a significant other at home: No Do you presently have visiting nurse or other home services: Yes (Has a home health aid 12 hours/week.) Alcohol intake: never Comment: pt refuses Patient Tobacco Use Status: Former Tobacco user Advance Directives Date on File: 05/16/22 service: Yes Current occupational status: retired Meds Allergies Allergy/AdvReac Type Severity Reaction Status Date / Time Penicillins AdvReac Intermediate HALLUCINATIONS, Verified 11/14/24 11:03 SWEATS Active Medications: Current Medications Acetaminophen (Acetaminophen 325 Mg Tablet) 650 mg PO Q6H PRN PRN Reason: Pain, Mild 1-3,fever,headache Last Admin: 11/14/24 21:36 Dose: 650 mg Allopurinol (Allopurinol 300 Mg Tablet) 300 mg PO DAILY [facility] Last Admin: 11/18/24 08:28 Dose: 300 mg Ascorbic Acid (Ascorbic Acid 500 Mg Tablet) 500 mg PO DAILY [facility] Last Admin: 11/18/24 08:28 Dose: 500 mg Calcium Carbonate (Calcium Carbonate 750 Mg Tab.Chew) 750 mg PO Q4H PRN PRN Reason: Heartburn Ceftriaxone Sodium (Ceftriaxone Sodium 1 Gm Vial) 1 gm IVPUSH Q24H [facility] Last Admin: 11/17/24 17:51 Dose: 1 gm Cyanocobalamin (Cyanocobalamin (Vitamin B-12) 100 Mcg Tablet) 100 mcg PO DAILY [facility] Last Admin: 11/18/24 08:27 Dose: 100 mcg Dextrose (Dextrose 50 % 25 Gm/50 Ml Syringe) 25 gm IVPUSH Q15M PRN; Protocol PRN Reason: per Hypoglycemia Standing Ord. Glucose (Glucose Gel 15 Gm Gel..Gram.) 15 gm PO Q15M PRN; Protocol PRN Reason: per Hypoglycemia Standing Ord. Insulin Glargine (Insulin Glargine,Hum.Rec.Anlog 100 Unit/Ml 10 Ml Vial) 48 unit SUBCUT BEDTIME@2100 [facility] Last Admin: 11/17/24 21:56 Dose: 48 unit Insulin Human Lispro (Insulin Lispro 100 Unit/Ml 3 Ml Vial) 0 unit SUBCUT QIDACHS [facility]; Protocol Last Admin: 11/18/24 11:55 Dose: 2 unit Magnesium Hydroxide (Milk Of Magnesia 30 Ml Oral.Susp) 30 ml PO DAILY PRN PRN Reason: Constipation Last Admin: 11/17/24 17:55 Dose: 30 ml Melatonin (Melatonin 3 Mg Tablet) 6 mg PO BEDTIME PRN PRN Reason: Insomnia Methenamine Hippurate (Methenamine Hippurate 1 Gm Tablet) 1 gm PO BID [facility] Last Admin: 11/18/24 08:26 Dose: 1 gm Omeprazole (Omeprazole 40 Mg Capsule.) 40 mg PO DAILY@0630 [facility] Last Admin: 11/18/24 06:16 Dose: 40 mg Sodium Chloride (0.9 % Sodium Chloride Flush 3 Ml Syringe) 3 ml IVFLUSH QSHIFT [facility] Last Admin: 11/18/24 08:28 Dose: 3 ml Tamsulosin HCl (Tamsulosin Hcl 0.4 Mg Capsule) 0.4 mg PO BEDTIME [facility] Last Admin: 11/17/24 21:48 Dose: 0.4 mg Torsemide (Torsemide 20 Mg Tablet) 80 mg PO BID [facility]; Protocol Last Admin: 11/18/24 08:27 Dose: 80 mg Vitamin D (Cholecalciferol (Vitamin D3) 25 Mcg Tablet) 50 mcg PO DAILY [facility] Last Admin: 11/18/24 08:27 Dose: 50 mcg Home Medications ?Medication ?Instructions ?Recorded ?Confirmed ?Last Taken ?Type cholecalciferol (vitamin D3) 50 50 mcg PO DAILY 11/03/20 11/14/24 11/14/24 History mcg (2,000 unit) capsule cyanocobalamin (vitamin B-12) 100 100 mcg PO DAILY 05/02/22 11/14/24 11/14/24 History mcg tablet ascorbic acid (vitamin C) 1,000 mg 500 mg PO DAILY 11/13/23 11/14/24 11/14/24 History tablet (Vitamin C) amlodipine 5 mg tablet 10 mg PO DAILY@1200 11/29/23 11/14/24 11/14/24 History allopurinol 300 mg tablet 300 mg PO DAILY 05/08/24 11/14/24 11/14/24 History insulin aspart U-100 100 unit/mL 10 unit subcut TID 05/08/24 11/14/24 11/14/24 History subcutaneous solution (Novolog U-100 Insulin aspart) insulin glargine 100 unit/mL (3 48 unit subcut BEDTIME@2100 05/08/24 11/14/24 11/14/24 History mL) subcutaneous pen (Lantus Solostar U-100 Insulin) torsemide 20 mg tablet 80 mg PO BID 05/08/24 11/14/24 11/14/24 History methenamine hippurate 1 gram tablet 1 g PO BID 09/12/24 11/14/24 11/14/24 History losartan 50 mg tablet 50 mg PO DAILY@1200 11/14/24 11/14/24 11/14/24 History metolazone 2.5 mg tablet 2.5 mg PO Q48H PRN weight gain 11/14/24 11/14/24 11/14/24 History tamsulosin 0.4 mg capsule 0.4 mg PO BEDTIME 11/14/24 11/14/24 11/14/24 History Exam Height,Weight and Vital Signs: Height 5 ft 10 in Weight 171.5 kg Last Vital Signs Temp 96.4 F L 11/18/24 12:00 Pulse 90 11/18/24 12:54 Resp 20 11/18/24 12:00 BP 126/58 L 11/18/24 12:54 Pulse Ox 99 11/18/24 12:00 O2 Del Method Room Air 11/18/24 12:00 Pertinent Lab Results Pertinent Lab Results: Laboratory Tests 11/14/24 11/14/24 11/14/24 11:59 12:01 12:08 WBC 11.9 H RBC 3.34 L D Hgb 10.4 L Hct 31.8 L MCV 95.2 MCH 31.1 MCHC 32.7 RDW 14.8 Plt Count 219 MPV 11.7 Immature Gran % (Auto) 0.8 H Neut % (Auto) 87.1 H Lymph % (Auto) 5.1 L Gilliam % (Auto) 5.1 Eos % (Auto) 1.6 Baso % (Auto) 0.3 Lymph # (Auto) 0.6 L Gilliam # (Auto) 0.6 Eos # (Auto) 0.2 Baso # (Auto) 0.0 Abs Immat Gran (auto) 0.10 H Absolute Neuts (auto) 10.3 H Absolute Nucleated RBC 0.000 Nucleated RBC % (auto) 0.0 VBG pH 7.38 VBG pCO2 47 VBG pO2 32 VBG HCO3 28 H VBG O2 Saturation 39.0 VBG Base Excess 2.7 Sodium 139 Potassium 3.5 D Chloride 98 Carbon Dioxide 26 Anion Gap 19 BUN 140 H Creatinine 3.86 H Estim Creat Clear Calc 27.4 Estimated GFR 15 POC Glucose Random Glucose 205 H Lactic Acid 1.0 Calcium 8.7 Magnesium 1.9 Iron 38 L TIBC 256 % Saturation 15 Unsat Iron Binding 218 Ferritin 73 Total Bilirubin 0.4 Direct Bilirubin AST 17 ALT 8 Alkaline Phosphatase 62 Troponin I High Sens 28.3 B-Natriuretic Peptide 113 H Total Protein 7.4 Albumin 3.8 Vitamin B12 Folate Urine Color Urine Appearance Urine pH Ur Specific [place] Urine Protein Urine Glucose (UA) Urine Ketones Urine Blood Urine Nitrite Ur Leukocyte Esterase Urine RBC Urine WBC Ur Squamous Epith Cells Urine Bacteria Hyaline Casts Urine Eosinophils % U Random Total Protein Urine Creatinine Protein/Creatinin Ratio Stool Occult Blood POSITIVE Influenza Type A (PCR) Influenza Type B (PCR) RSV RNA Qual (PCR) SARS-CoV-2 RNA (RT-PCR) 11/14/24 11/14/24 11/14/24 13:28 15:35 16:09 WBC RBC Hgb Hct MCV MCH MCHC RDW Plt Count MPV Immature Gran % (Auto) Neut % (Auto) Lymph % (Auto) Gilliam % (Auto) Eos % (Auto) Baso % (Auto) Lymph # (Auto) Gilliam # (Auto) Eos # (Auto) Baso # (Auto) Abs Immat Gran (auto) Absolute Neuts (auto) Absolute Nucleated RBC Nucleated RBC % (auto) VBG pH VBG pCO2 VBG pO2 VBG HCO3 VBG O2 Saturation VBG Base Excess Sodium Potassium Chloride Carbon Dioxide Anion Gap BUN Creatinine Estim Creat Clear Calc Estimated GFR POC Glucose Random Glucose Lactic Acid Calcium Magnesium Iron TIBC % Saturation Unsat Iron Binding Ferritin Total Bilirubin Direct Bilirubin AST ALT Alkaline Phosphatase Troponin I High Sens 31.8 B-Natriuretic Peptide Total Protein Albumin Vitamin B12 Folate Urine Color Yellow Urine Appearance Cloudy Urine pH 5.5 Ur Specific [place] 1.010 Urine Protein Negative Urine Glucose (UA) Negative Urine Ketones Negative Urine Blood Negative Urine Nitrite Negative Ur Leukocyte Esterase Large (3+) H Urine RBC 0-2 Urine WBC >50 H Ur Squamous Epith Cells 0-2 Urine Bacteria 4+ Hyaline Casts 3-5 Urine Eosinophils % U Random Total Protein Urine Creatinine Protein/Creatinin Ratio Stool Occult Blood Influenza Type A (PCR) NEGATIVE Influenza Type B (PCR) NEGATIVE RSV RNA Qual (PCR) NEGATIVE SARS-CoV-2 RNA (RT-PCR) NEGATIVE 11/14/24 11/14/24 11/15/24 21:16 23:58 04:40 WBC RBC Hgb Hct MCV MCH MCHC RDW Plt Count MPV Immature Gran % (Auto) Neut % (Auto) Lymph % (Auto) Gilliam % (Auto) Eos % (Auto) Baso % (Auto) Lymph # (Auto) Gilliam # (Auto) Eos # (Auto) Baso # (Auto) Abs Immat Gran (auto) Absolute Neuts (auto) Absolute Nucleated RBC Nucleated RBC % (auto) VBG pH VBG pCO2 VBG pO2 VBG HCO3 VBG O2 Saturation VBG Base Excess Sodium Potassium Chloride Carbon Dioxide Anion Gap BUN Creatinine Estim Creat Clear Calc Estimated GFR POC Glucose 233 H 81 84 Random Glucose Lactic Acid Calcium Magnesium Iron TIBC % Saturation Unsat Iron Binding Ferritin Total Bilirubin Direct Bilirubin AST ALT Alkaline Phosphatase Troponin I High Sens B-Natriuretic Peptide Total Protein Albumin Vitamin B12 Folate Urine Color Urine Appearance Urine pH Ur Specific [place] Urine Protein Urine Glucose (UA) Urine Ketones Urine Blood Urine Nitrite Ur Leukocyte Esterase Urine RBC Urine WBC Ur Squamous Epith Cells Urine Bacteria Hyaline Casts Urine Eosinophils % U Random Total Protein Urine Creatinine Protein/Creatinin Ratio Stool Occult Blood Influenza Type A (PCR) Influenza Type B (PCR) RSV RNA Qual (PCR) SARS-CoV-2 RNA (RT-PCR) 11/15/24 11/15/24 11/15/24 05:15 07:12 12:11 WBC 10.6 RBC 3.28 L Hgb 10.1 L Hct 30.9 L MCV 94.2 MCH 30.8 MCHC 32.7 RDW 14.6 Plt Count 207 MPV 11.6 Immature Gran % (Auto) Neut % (Auto) Lymph % (Auto) Gilliam % (Auto) Eos % (Auto) Baso % (Auto) Lymph # (Auto) Gilliam # (Auto) Eos # (Auto) Baso # (Auto) Abs Immat Gran (auto) Absolute Neuts (auto) Absolute Nucleated RBC 0.000 Nucleated RBC % (auto) 0.0 VBG pH VBG pCO2 VBG pO2 VBG HCO3 VBG O2 Saturation VBG Base Excess Sodium 140 Potassium 3.4 Chloride 99 Carbon Dioxide 26 Anion Gap 18 BUN 138 H Creatinine 3.49 H Estim Creat Clear Calc 29.8 Estimated GFR 17 POC Glucose 134 H 160 H Random Glucose 108 Lactic Acid Calcium 8.6 Magnesium 1.9 Iron TIBC % Saturation Unsat Iron Binding Ferritin Total Bilirubin 0.4 Direct Bilirubin 0.2 AST 17 ALT 6 Alkaline Phosphatase 62 Troponin I High Sens B-Natriuretic Peptide Total Protein 6.8 Albumin 3.5 Vitamin B12 1604 H Folate 11.1 Urine Color Urine Appearance Urine pH Ur Specific [place] Urine Protein Urine Glucose (UA) Urine Ketones Urine Blood Urine Nitrite Ur Leukocyte Esterase Urine RBC Urine WBC Ur Squamous Epith Cells Urine Bacteria Hyaline Casts Urine Eosinophils % U Random Total Protein Urine Creatinine Protein/Creatinin Ratio Stool Occult Blood Influenza Type A (PCR) Influenza Type B (PCR) RSV RNA Qual (PCR) SARS-CoV-2 RNA (RT-PCR) 11/15/24 11/15/24 11/15/24 12:44 17:07 20:40 WBC RBC Hgb Hct MCV MCH MCHC RDW Plt Count MPV Immature Gran % (Auto) Neut % (Auto) Lymph % (Auto) Gilliam % (Auto) Eos % (Auto) Baso % (Auto) Lymph # (Auto) Gilliam # (Auto) Eos # (Auto) Baso # (Auto) Abs Immat Gran (auto) Absolute Neuts (auto) Absolute Nucleated RBC Nucleated RBC % (auto) VBG pH VBG pCO2 VBG pO2 VBG HCO3 VBG O2 Saturation VBG Base Excess Sodium Potassium Chloride Carbon Dioxide Anion Gap BUN Creatinine Estim Creat Clear Calc Estimated GFR POC Glucose 156 H 178 H Random Glucose Lactic Acid Calcium Magnesium Iron TIBC % Saturation Unsat Iron Binding Ferritin Total Bilirubin Direct Bilirubin AST ALT Alkaline Phosphatase Troponin I High Sens B-Natriuretic Peptide Total Protein Albumin Vitamin B12 Folate Urine Color Urine Appearance Urine pH Ur Specific [place] Urine Protein Urine Glucose (UA) Urine Ketones Urine Blood Urine Nitrite Ur Leukocyte Esterase Urine RBC Urine WBC Ur Squamous Epith Cells Urine Bacteria Hyaline Casts Urine Eosinophils % U Random Total Protein 14 H Urine Creatinine 24.65 Protein/Creatinin Ratio 0.57 H Stool Occult Blood Influenza Type A (PCR) Influenza Type B (PCR) RSV RNA Qual (PCR) SARS-CoV-2 RNA (RT-PCR) 11/16/24 11/16/24 11/16/24 07:32 07:45 10:06 WBC 10.1 RBC 3.30 L Hgb 10.1 L Hct 31.7 L MCV 96.1 MCH 30.6 MCHC 31.9 RDW 14.7 Plt Count 192 MPV 12.2 Immature Gran % (Auto) Neut % (Auto) Lymph % (Auto) Gilliam % (Auto) Eos % (Auto) Baso % (Auto) Lymph # (Auto) Gilliam # (Auto) Eos # (Auto) Baso # (Auto) Abs Immat Gran (auto) Absolute Neuts (auto) Absolute Nucleated RBC 0.000 Nucleated RBC % (auto) 0.0 VBG pH VBG pCO2 VBG pO2 VBG HCO3 VBG O2 Saturation VBG Base Excess Sodium 140 Potassium 3.5 Chloride 96 Carbon Dioxide 28 Anion Gap 20 BUN 125 H Creatinine 3.58 H Estim Creat Clear Calc 28.7 Estimated GFR 17 POC Glucose 106 Random Glucose 213 H Lactic Acid Calcium 8.5 Magnesium Iron TIBC % Saturation Unsat Iron Binding Ferritin Total Bilirubin Direct Bilirubin AST ALT Alkaline Phosphatase Troponin I High Sens B-Natriuretic Peptide Total Protein Albumin Vitamin B12 Folate Urine Color Urine Appearance Urine pH Ur Specific [place] Urine Protein Urine Glucose (UA) Urine Ketones Urine Blood Urine Nitrite Ur Leukocyte Esterase Urine RBC Urine WBC Ur Squamous Epith Cells Urine Bacteria Hyaline Casts Urine Eosinophils % U Random Total Protein Urine Creatinine Protein/Creatinin Ratio Stool Occult Blood Influenza Type A (PCR) Influenza Type B (PCR) RSV RNA Qual (PCR) SARS-CoV-2 RNA (RT-PCR) 11/16/24 11/16/24 11/16/24 11:35 15:36 20:33 WBC RBC Hgb Hct MCV MCH MCHC RDW Plt Count MPV Immature Gran % (Auto) Neut % (Auto) Lymph % (Auto) Gilliam % (Auto) Eos % (Auto) Baso % (Auto) Lymph # (Auto) Gilliam # (Auto) Eos # (Auto) Baso # (Auto) Abs Immat Gran (auto) Absolute Neuts (auto) Absolute Nucleated RBC Nucleated RBC % (auto) VBG pH VBG pCO2 VBG pO2 VBG HCO3 VBG O2 Saturation VBG Base Excess Sodium Potassium Chloride Carbon Dioxide Anion Gap BUN Creatinine Estim Creat Clear Calc Estimated GFR POC Glucose 165 H 166 H 175 H Random Glucose Lactic Acid Calcium Magnesium Iron TIBC % Saturation Unsat Iron Binding Ferritin Total Bilirubin Direct Bilirubin AST ALT Alkaline Phosphatase Troponin I High Sens B-Natriuretic Peptide Total Protein Albumin Vitamin B12 Folate Urine Color Urine Appearance Urine pH Ur Specific [place] Urine Protein Urine Glucose (UA) Urine Ketones Urine Blood Urine Nitrite Ur Leukocyte Esterase Urine RBC Urine WBC Ur Squamous Epith Cells Urine Bacteria Hyaline Casts Urine Eosinophils % U Random Total Protein Urine Creatinine Protein/Creatinin Ratio Stool Occult Blood Influenza Type A (PCR) Influenza Type B (PCR) RSV RNA Qual (PCR) SARS-CoV-2 RNA (RT-PCR) 11/17/24 11/17/24 11/17/24 03:15 07:26 07:48 WBC 11.5 H RBC 3.78 L Hgb 11.7 L Hct 35.7 L MCV 94.4 MCH 31.0 MCHC 32.8 RDW 14.6 Plt Count 223 MPV 12.0 Immature Gran % (Auto) Neut % (Auto) Lymph % (Auto) Gilliam % (Auto) Eos % (Auto) Baso % (Auto) Lymph # (Auto) Gilliam # (Auto) Eos # (Auto) Baso # (Auto) Abs Immat Gran (auto) Absolute Neuts (auto) Absolute Nucleated RBC 0.000 Nucleated RBC % (auto) 0.0 VBG pH VBG pCO2 VBG pO2 VBG HCO3 VBG O2 Saturation VBG Base Excess Sodium 143 Potassium 3.5 Chloride 99 Carbon Dioxide 27 Anion Gap 21 H BUN 118 H Creatinine 3.36 H Estim Creat Clear Calc 30.6 Estimated GFR 18 POC Glucose 106 129 H Random Glucose 138 H Lactic Acid Calcium 8.9 Magnesium Iron TIBC % Saturation Unsat Iron Binding Ferritin Total Bilirubin Direct Bilirubin AST ALT Alkaline Phosphatase Troponin I High Sens B-Natriuretic Peptide Total Protein Albumin Vitamin B12 Folate Urine Color Urine Appearance Urine pH Ur Specific [place] Urine Protein Urine Glucose (UA) Urine Ketones Urine Blood Urine Nitrite Ur Leukocyte Esterase Urine RBC Urine WBC Ur Squamous Epith Cells Urine Bacteria Hyaline Casts Urine Eosinophils % U Random Total Protein Urine Creatinine Protein/Creatinin Ratio Stool Occult Blood Influenza Type A (PCR) Influenza Type B (PCR) RSV RNA Qual (PCR) SARS-CoV-2 RNA (RT-PCR) 11/17/24 11/17/24 11/17/24 11:21 15:55 21:03 WBC RBC Hgb Hct MCV MCH MCHC RDW Plt Count MPV Immature Gran % (Auto) Neut % (Auto) Lymph % (Auto) [place]illi[place] % (Auto) Eos % (Auto) Baso % (Auto) Lymph # (Auto) Gilliam # (Auto) Eos # (Auto) Baso # (Auto) Abs Immat Gran (auto) Absolute Neuts (auto) Absolute Nucleated RBC Nucleated RBC % (auto) VBG pH VBG pCO2 VBG pO2 VBG HCO3 VBG O2 Saturation VBG Base Excess Sodium Potassium Chloride Carbon Dioxide Anion Gap BUN Creatinine Estim Creat Clear Calc Estimated GFR POC Glucose 214 H 127 H 222 H Random Glucose Lactic Acid Calcium Magnesium Iron TIBC % Saturation Unsat Iron Binding Ferritin Total Bilirubin Direct Bilirubin AST ALT Alkaline Phosphatase Troponin I High Sens B-Natriuretic Peptide Total Protein Albumin Vitamin B12 Folate Urine Color Urine Appearance Urine pH Ur Specific [place] Urine Protein Urine Glucose (UA) Urine Ketones Urine Blood Urine Nitrite Ur Leukocyte Esterase Urine RBC Urine WBC Ur Squamous Epith Cells Urine Bacteria Hyaline Casts Urine Eosinophils % U Random Total Protein Urine Creatinine Protein/Creatinin Ratio Stool Occult Blood Influenza Type A (PCR) Influenza Type B (PCR) RSV RNA Qual (PCR) SARS-CoV-2 RNA (RT-PCR) 11/18/24 11/18/24 11/18/24 07:59 08:27 11:25 WBC 13.0 H RBC 3.78 L Hgb 11.8 L Hct 35.9 L MCV 95.0 MCH 31.2 MCHC 32.9 RDW 14.6 Plt Count 238 MPV 12.3 Immature Gran % (Auto) Neut % (Auto) Lymph % (Auto) Gilli[place] % (Auto) Eos % (Auto) Baso % (Auto) Lymph # (Auto) Gilliam # (Auto) Eos # (Auto) Baso # (Auto) Abs Immat Gran (auto) Absolute Neuts (auto) Absolute Nucleated RBC 0.000 Nucleated RBC % (auto) 0.0 VBG pH VBG pCO2 VBG pO2 VBG HCO3 VBG O2 Saturation VBG Base Excess Sodium 140 Potassium 3.8 Chloride 94 L Carbon Dioxide 31 H Anion Gap 19 BUN 125 H Creatinine 3.50 H Estim Creat Clear Calc 29.4 Estimated GFR 17 POC Glucose 180 H Random Glucose 148 H Lactic Acid Calcium 9.1 Magnesium Iron TIBC % Saturation Unsat Iron Binding Ferritin Total Bilirubin Direct Bilirubin AST ALT Alkaline Phosphatase Troponin I High Sens B-Natriuretic Peptide Total Protein Albumin Vitamin B12 Folate Urine Color Urine Appearance Urine pH Ur Specific [place] Urine Protein Urine Glucose (UA) Urine Ketones Urine Blood Urine Nitrite Ur Leukocyte Esterase Urine RBC Urine WBC Ur Squamous Epith Cells Urine Bacteria Hyaline Casts Urine Eosinophils % 0.0 U Random Total Protein Urine Creatinine Protein/Creatinin Ratio Stool Occult Blood Influenza Type A (PCR) Influenza Type B (PCR) RSV RNA Qual (PCR) SARS-CoV-2 RNA (RT-PCR) 11/18/24 11:32 WBC RBC Hgb Hct MCV MCH MCHC RDW Plt Count MPV Immature Gran % (Auto) Neut % (Auto) Lymph % (Auto) Gilliam % (Auto) Eos % (Auto) Baso % (Auto) Lymph # (Auto) Gilliam # (Auto) Eos # (Auto) Baso # (Auto) Abs Immat Gran (auto) Absolute Neuts (auto) Absolute Nucleated RBC Nucleated RBC % (auto) VBG pH VBG pCO2 VBG pO2 VBG HCO3 VBG O2 Saturation VBG Base Excess Sodium Potassium Chloride Carbon Dioxide Anion Gap BUN Creatinine Estim Creat Clear Calc Estimated GFR POC Glucose 181 H Random Glucose Lactic Acid Calcium Magnesium Iron TIBC % Saturation Unsat Iron Binding Ferritin Total Bilirubin Direct Bilirubin AST ALT Alkaline Phosphatase Troponin I High Sens B-Natriuretic Peptide Total Protein Albumin Vitamin B12 Folate Urine Color Urine Appearance Urine pH Ur Specific [place] Urine Protein Urine Glucose (UA) Urine Ketones Urine Blood Urine Nitrite Ur Leukocyte Esterase Urine RBC Urine WBC Ur Squamous Epith Cells Urine Bacteria Hyaline Casts Urine Eosinophils % U Random Total Protein Urine Creatinine Protein/Creatinin Ratio Stool Occult Blood Influenza Type A (PCR) Influenza Type B (PCR) RSV RNA Qual (PCR) SARS-CoV-2 RNA (RT-PCR) Narrative Narrative: Echo 11/14/24 Conclusions: - Normal left ventricular size and systolic function. There is mildly increased left ventricular wall thickness. The visually estimated ejection fraction is between 55-60%. There is no evidence of regional wall motion abnormalities. - Moderately increased right ventricular cavity size. There is normal right ventricular systolic function. - The left atrium is severely dilated. - There is mild aortic valve stenosis. EKG 11/14/24 Vent. Rate : 65 BPM Atrial Rate : * BPM P-R Int : * ms QRS Dur : 180 ms QT Int : 474 ms P-R-T Axes : * -84 65 degrees QTcB Int : 492 ms Atrial fibrillation with premature ventricular or aberrantly conducted complexes Right bundle branch block Left anterior fascicular block Bifascicular block Septal infarct , age undetermined Abnormal ECG When compared with ECG of 31-May-2024 11:55, No significant change was found Assessment and Plan Final Anesthetic Review Family History of Problems with Anesthesia: No History of Problems with Anesthesia: No Documented by User: Lisa Ames MD 11/19/24 09:21 [facility] Past Medical History Medical History ARIEL (obstructive sleep apnea) CHF (congestive heart failure) Abnormal CT of the abdomen Morbid obesity Chronic atrial fibrillation History of ESBL E. 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 Hypertension Diabetes Kidney disease Surgical History Surgical History History of surgery on lower extremity Hx of tonsillectomy H/O colonoscopy S/P ERCP Social History Social History Household Members: Spouse Housing: House Are you a primary childcare provider to a significant other at home: No Do you presently have visiting nurse or other home services: Yes (Has a home health aid 12 hours/week.) Alcohol intake: never Comment: pt refuses Patient Tobacco Use Status: Former Tobacco user Advance Directives Date on File: 05/16/22 service: Yes Current occupational status: retired Meds Allergies Allergy/AdvReac Type Severity Reaction Status Date / Time Penicillins AdvReac Intermediate HALLUCINATIONS, Verified 11/14/24 11:03 SWEATS Home Medications ?Medication ?Instructions ?Recorded ?Confirmed ?Last Taken ?Type cholecalciferol (vitamin D3) 50 50 mcg PO DAILY 11/03/20 11/14/24 11/14/24 History mcg (2,000 unit) capsule cyanocobalamin (vitamin B-12) 100 100 mcg PO DAILY 05/02/22 11/14/24 11/14/24 History mcg tablet ascorbic acid (vitamin C) 1,000 mg 500 mg PO DAILY 11/13/23 11/14/24 11/14/24 History tablet (Vitamin C) amlodipine 5 mg tablet 10 mg PO DAILY@1200 11/29/23 11/14/24 11/14/24 History allopurinol 300 mg tablet 300 mg PO DAILY 05/08/24 11/14/24 11/14/24 History insulin aspart U-100 100 unit/mL 10 unit subcut TID 05/08/24 11/14/24 11/14/24 History subcutaneous solution (Novolog U-100 Insulin aspart) insulin glargine 100 unit/mL (3 48 unit subcut BEDTIME@2100 05/08/24 11/14/24 11/14/24 History mL) subcutaneous pen (Lantus Solostar U-100 Insulin) torsemide 20 mg tablet 80 mg PO BID 05/08/24 11/14/24 11/14/24 History methenamine hippurate 1 gram tablet 1 g PO BID 09/12/24 11/14/24 11/14/24 History losartan 50 mg tablet 50 mg PO DAILY@1200 11/14/24 11/14/24 11/14/24 History metolazone 2.5 mg tablet 2.5 mg PO Q48H PRN weight gain 11/14/24 11/14/24 11/14/24 History tamsulosin 0.4 mg capsule 0.4 mg PO BEDTIME 11/14/24 11/14/24 11/14/24 History Exam Airway Mallampati Class: III TM Dist: >3cm Neck ROM: Limited Loose/Missing/Broken Teeth: Yes Heart: RRR Lungs: CTA Assessment and Plan Assessment Anesthesia Assessment: Anesthesia Plan Discussed and Chart Reviewed Final Anesthetic Review NPO: Yes ASA Class: III Final Preanesthetic Review: Meds/Allgs Chart Reviewed, Consent Obtained/Reviewed and Anes Risks/Benef Reviewed Patient Risk: Intermediate Procedure Risk: Intermediate Anesthetic Plan Anesthetic Plan: MAC: Disposition: Standard PACU
--- NOTE | 2024-11-18 14:21 | P.PNGI_ITS ---
Subjective Subjective Date of Service: 11/18/24 Interval History: Geovanni states he feels well Critical Care Time (minutes): 0 Physical Exam 2 Vital Signs: Vital Signs: Last Vital Signs Temp 96.4 F L 11/18/24 12:00 Pulse 90 11/18/24 12:54 Resp 20 11/18/24 12:00 BP 126/58 L 11/18/24 12:54 Pulse Ox 99 11/18/24 12:00 O2 Del Method Room Air 11/18/24 12:00 BMI result Body Mass Index 54.2 GI: Other: no tenderness to palpation. Objective Data Labs 11/18/24 07:59 11/18/24 07:59 Labs: Laboratory Results - last 24 hr 11/17/24 11/17/24 11/18/24 15:55 21:03 07:59 WBC 13.0 H RBC 3.78 L Hgb 11.8 L Hct 35.9 L MCV 95.0 MCH 31.2 MCHC 32.9 RDW 14.6 Plt Count 238 MPV 12.3 Absolute Nucleated RBC 0.000 Nucleated RBC % (auto) 0.0 Sodium 140 Potassium 3.8 Chloride 94 L Carbon Dioxide 31 H Anion Gap 19 BUN 125 H Creatinine 3.50 H Estim Creat Clear Calc 29.4 Estimated GFR 17 POC Glucose 127 H 222 H Random Glucose 148 H Calcium 9.1 Urine Eosinophils % 11/18/24 11/18/24 11/18/24 08:27 11:25 11:32 WBC RBC Hgb Hct MCV MCH MCHC RDW Plt Count MPV Absolute Nucleated RBC Nucleated RBC % (auto) Sodium Potassium Chloride Carbon Dioxide Anion Gap BUN Creatinine Estim Creat Clear Calc Estimated GFR POC Glucose 180 H 181 H Random Glucose Calcium Urine Eosinophils % 0.0 Microbiology Microbiology Results: Microbiology 11/14/24 13:26 Urine clean catch - Clean Catch Midstream Urine Culture - Final Procedures Date of Service Date of Service: 11/18/24 Progress Note: A&P Assessment and plan (1) Anemia: Status: Acute Assessment and Plan: I have discussed EGD with Geovanni for evaluation of anemia and heme pos stools. This should be done before restarting anticoagulation He is aware of risks and benefits and agrees to proceed. Time Spent With Patient Time: Total time managing care of this patient today ____ minutes. Quality Stroke Does the patient have a stroke diagnosis?: No VTE Prior VTE?: No VTE Risk Level:: Medical - moderate - high VTE Device Contraindication: N/A - Device Ordered VTE Drug Contraindication: Treatment Not Tolerated
[2024-11-18 16:13] LABS: Glucose, Whole Blood 181 mg/dL (60-115)
[2024-11-18 19:42] LABS: Glucose, Whole Blood 177 mg/dL (60-115)
[2024-11-18] MEDS: Insulin Glargine,Hum.rec.anlog 100 UNIT/ML 10 ML VIAL 48 UNIT SUBCUT (20:51)
[2024-11-19 03:11] VITALS: BP 113/54; PULSE 68; RESP 18; TEMP 36; O2SAT 97
--- NOTE | 2024-11-19 06:25 | PC.NURSE ---
Pt off floor for EGD, report given to TERRELL Pruett.
[2024-11-19 06:42] VITALS: BP 160/68; PULSE 69; RESP 16; TEMP 36.2; O2SAT 98
[2024-11-19 06:49] LABS: Glucose, Whole Blood 100 mg/dL (60-115)
[2024-11-19] MEDS: Lactated Ringers 500 ML 20 ML IVCONT (06:49)
--- NOTE | 2024-11-19 07:51 | P.BOP_ITS ---
Brief Operative Note Date of Service: 11/19/24 Pre-op diagnosis: anemia Post-op diagnosis: same Procedure: EGD Surgeon: Mayank Lange MD Anesthesia: MAC Was an [employer] used for this Procedure?: No Estimated blood loss (mL): 2 Pathology: other Condition: stable Disposition: PACU
[2024-11-19 07:55] VITALS: BP 103/52; PULSE 59; RESP 18; TEMP 37.1; O2SAT 100
--- NOTE | 2024-11-19 07:56 | PM.EVENT ---
Event Note Date of Service: 11/25/24 Event Note: GI EGD show no bleeding or ulcer OK to resume OAC continue empiric ppi Time Spent With Patient Time: Total time managing care of this patient today ____ minutes.
[2024-11-19 08:00] VITALS: BP 138/63; PULSE 63; RESP 19; TEMP 36.3; O2SAT 100
[2024-11-19 08:05] VITALS: BP 107/52; PULSE 64; RESP 16; TEMP 37; O2SAT 98
--- NOTE | 2024-11-19 08:46 | OP_ITS ---
DATE OF SERVICE: 11/19/2024 SURGEON: Mayank Lange MD INDICATIONS: Anemia and Hemoccult-positive stools. PREOPERATIVE DIAGNOSIS: POSTOPERATIVE DIAGNOSIS: PROCEDURE PERFORMED: Upper endoscopy with biopsy. ESTIMATED BLOOD LOSS: COMPLICATIONS: ANESTHESIA: Monitored anesthesia care. ASSISTANTS: SPECIMENS: DESCRIPTION OF PROCEDURE: A history and physical performed. The risks and benefits of procedure were explained to the patient, and informed consent was obtained. The patient was placed in the left lateral decubitus position. The Olympus video gastroscope was introduced into the esophagus, stomach, and duodenum. Examination was performed. The scope was removed. He tolerated the procedure well and was taken to recovery area in stable condition. FINDINGS: Esophagus: The esophagus showed a small sliding hiatal hernia with an irregular EG junction with no esophagitis. Stomach: The stomach showed no evidence of masses or ulcers. Antral biopsies were obtained to evaluate for H pylori. Duodenum: The bulb and 2nd portion were normal. IMPRESSION: Normal upper endoscopy. RECOMMENDATION: Followup the biopsy results. MD TOM Gasca/ARMANDL / [id number]
[2024-11-19 08:54] LABS: Glucose, Whole Blood 107 mg/dL (60-115)
[2024-11-19] MEDS: 0.9 % Sodium Chloride Flush 3 ML SYRINGE IVFLUSH (08:59)
[2024-11-19 11:13] LABS: Glucose, Whole Blood 209 mg/dL (60-115)
[2024-11-19 11:31] VITALS: BP 131/55; PULSE 65; RESP 18; TEMP 36.6; O2SAT 95
--- NOTE | 2024-11-19 11:43 | P.DS_ITS ---
DS: Providers Provider Date of Service: 11/19/24 Date of admission: 11/14/24 16:48 Date of discharge: 11/19/24 Primary care physician: Guzman Edouard MD Consults: 11/14/24 17:18 Consult to Gastroenterology Routine Consulting Provider: [facility] Reason for consultation: anemia, on eliquis Consult to Nephrology Routine Consulting Provider: [facility] Reason for consultation: july on ckd iv DS: Diagnosis Discharge Diagnosis (1) Anemia: Status: Acute DS: Summary Hospital Course Hospital Course: from initial hpi: 73M PMH ARIEL, morbid obesity, chronic diastolic CHF, CKD 4, diabetes, paroxysmal AFib on Eliquis presented with shortness of breath. Patient reports shortness of breath has been ongoing for several months. Worse on exertion. Relieved by rest. Has been increasing over the past few weeks. [facility] who [facility] come to [facility]. patient reports recent weight gain and was instructed to increase torsemide and started on metolazone. Patient denies any fever or chills or chest pain. Denies any hematochezia or melena. He does report dysuria In ED, CT head unremarkable and chest x-ray with mild interstitial lung edema, UA positive, creatinine increased from baseline at 3.86. BNP slightly increased from baseline 113. hgb decreased to 10.4. hospital course: Patient was admitted for shortness of breath likely multifactorial due to obesity anemia acute on chronic diastolic CHF with right-sided heart failure. Received short course of IV diuresis and symptoms resolved. He now appears euvolemic. For acute kidney injury on CKD 4 creatinine is now stabilized around 3.5. We will follow up with Nephrology as outpatient. For acute unspecified anemia due to suspected chronic blood loss on Eliquis as well as inflammatory due to CKD his Eliquis was initially held seen by GI performed EGD which was unremarkable biopsies taken should be followed up outpatient. Hemoglobin remained stable and will be restarted on Eliquis on discharge. For urinary tract infection was treated with 5 day course of ceftriaxone. Culture grew mixed kulwant. For morbid obesity weight loss recommended. For diabetes was continued on basal bolus insulin. For paroxysmal AFib continued on Eliquis on discharge. Patient is back to baseline and will be discharged home. Time Attestation Discharge Coordination Time (in mins): 33 Quality: Safe Use of Opioids Does Pt have an Active Cancer Diagnosis on the Problem List?: No Quality: Stroke Does the patient have a stroke diagnosis?: No Physical Exam Exam: Exam: General: AO X 3, no acute distress Resp: CTA bilateral, no accessory muscles used CVS: S1,S2,RRR, 2+ edema with skin changes GI: soft, non tender, non distended Neuro: motor grossly intact, alert Psych: appropriate affect, appropriate insight Vital Signs: Vital Signs: Last Vital Signs Temp 97.9 F 11/19/24 11:31 Pulse 65 11/19/24 11:31 Resp 18 11/19/24 11:31 BP 131/55 L 11/19/24 11:31 Pulse Ox 95 11/19/24 11:31 O2 Del Method Room Air 11/19/24 11:31 O2 Flow Rate 6 11/19/24 07:55 BMI result Body Mass Index 54.2 DS: Data Data Completed and Pending Completed studies during hospitalization [Text1]: Procedures Assistance with Respiratory Ventilation, Less than 24 Consecutive Hours, Continuous Positive Airway Pressure (09/07/22) Excision of Cecum, Via Natural or Artificial Opening Endoscopic, Diagnostic (05/03/22) Excision of Sigmoid Colon, Via Natural or Artificial Opening Endoscopic, Diagnostic (05/03/22) Extirpation of Matter from Common Bile Duct, Via Natural or Artificial Opening Endoscopic (03/30/23) Insertion of Infusion Device into Right Brachial Vein, Percutaneous Approach (05/03/22) Pending studies at discharge: Pending at discharge 11/19/24 07:47 Surgical [PTH] Routine Labs on day of discharge: Laboratory Results - last 24 hr 11/18/24 11/18/24 11/18/24 11:25 11:32 16:09 POC Glucose 181 H 181 H Urine Eosinophils % 0.0 11/18/24 11/19/24 11/19/24 19:38 06:45 08:48 POC Glucose 177 H 100 107 Urine Eosinophils % 11/19/24 11:09 POC Glucose 209 H Urine Eosinophils % Discharge Plan Discharge Anticipated Discharge Date/Time: 11/19/24 11:41 Patient Disposition: Home, Self-Care Discharge Diagnosis: chf, uti, anemia Referrals: Mayank Lange MD [Physician, Gastroenterology] - 1 Week Guzman Edouard MD [Primary Care Provider, Internal Medicine] - 1 Week Discharge Medications: Continued Eliquis 5 mg tablet 5 mg PO BID 30 Days Qty: 60 5RF cholecalciferol (vitamin D3) 50 mcg (2,000 unit) Capsule 50 mcg PO DAILY ascorbic acid (vitamin C) [Vitamin C] 1,000 mg tablet 500 mg PO DAILY allopurinol 300 mg tablet 300 mg PO DAILY insulin aspart U-100 [Novolog U-100 Insulin aspart] 100 unit/mL solution 10 unit SUBCUT TID cyanocobalamin (vitamin B-12) 100 mcg Tablet 100 mcg PO DAILY insulin glargine [Lantus Solostar U-100 Insulin] 100 unit/mL (3 mL) insulin pen 48 unit SUBCUT BEDTIME@2100 tamsulosin 0.4 mg Capsule 0.4 mg PO BEDTIME methenamine hippurate 1 gram tablet 1 g PO BID torsemide 20 mg tablet 80 mg PO BID Rx Instructions: 2 am 1 noon Discontinued amlodipine 5 mg tablet 10 mg PO DAILY@1200 losartan 50 mg Tablet 50 mg PO DAILY@1200 metolazone 2.5 mg tablet 2.5 mg PO Q48H PRN (Reason: weight gain) Discharge Orders: Discharge Order (Routine); Ordered 11/19/24 Ordered By: Dedrick Leos Diet: Advance to usual diet Activity on Discharge: As tolerated Stand Alone Forms: Patient Portal Discharge page Print Language: Sami Care Plan Goals: Recovery Health Concerns: Anemia, CHF, chronic kidney disease Plan of Treatment: Med changes as per med rec, follow up with Gastroenterology and Nephrology Assessment: See above
[2024-11-19 11:50] LABS: Uric Acid 7.4 mg/dL (3.4-7.0)
--- NOTE | 2024-11-19 11:52 | MHC.CM.PN ---
PT MEDICALLY CLEARED FOR [place] HOME SELF CARE, PT'S [place] FOR TRANSPORT.
[2024-11-19 12:16] LABS: Anion Gap 18 (12-20); Calcium 8.9 mg/dL (8.4-10.2); Carbon Dioxide 31 mmol/L (22-29); Chloride 92 mmol/L (96-108); Creatinine Clr Calc Pharmacy 29.3; Estimated Glomerular Filt Rate 17; Potassium 3.3 mmol/L (3.3-5.1); Sodium 138 mmol/L (135-145)
[2024-11-19 12:25] LABS: Blood Urea Nitrogen 128 mg/dL (9-16)
== END 2024-11-19 13:00 | disposition home or self-care (01) | DRG 291 ==
LOC: HO.ED 17:08 → HO.EDOVER 17:24 → HO.IMC 11-15 16:33
PROVIDERS: Internal Medicine Gastroenterology; Nurse Practitioner Family; Admitting Provider Internal Medicine; Emergency Provider Emergency Medicine; PCP Internal Medicine; Visit Provider Internal Medicine
PROC: 0DJ08ZZ Inspection of Upper Intestinal Tract, Via Natural or Artificial Opening Endoscopic (ICD-10-PCS; CPT 43235; principal; 2024-11-19 07:30)
DX: I13.0 Hypertensive heart and chronic kidney disease with heart failure and stage 1 through stage 4 chronic kidney disease, or unspecified chronic kidney disease (principal); I50.33 Acute on chronic diastolic (congestive) heart failure; N18.4 Chronic kidney disease, stage 4 (severe); N39.0 Urinary tract infection, site not specified; Z68.43 Body mass index [BMI] 50.0-59.9, adult; I48.0 Paroxysmal atrial fibrillation; E66.01 Morbid (severe) obesity due to excess calories; G47.33 Obstructive sleep apnea (adult) (pediatric); D63.1 Anemia in chronic kidney disease; I50.813 Acute on chronic right heart failure; E11.22 Type 2 diabetes mellitus with diabetic chronic kidney disease; D50.0 Iron deficiency anemia secondary to blood loss (chronic); Z20.822 Contact with and (suspected) exposure to COVID-19; Z87.891 Personal history of nicotine dependence; Z79.4 Long term (current) use of insulin; Z79.01 Long term (current) use of anticoagulants; Z79.899 Other long term (current) drug therapy
CPT/HCPCS: 36415; 70450; 71045; 76775; 80048; 80053; 80076; 81001; 82272; 82570; 82607; 82728; 82746; 82803; 82947; 83540; 83605; 83735; 83880; 84156; 84484; 84550; 85025; 85027; 85999; 87086; 87637; 88305; 88342; 93005; 93306; 94660; 99285; J0696; J1938; J2003; J2704; J7120; Q9957

== ENCOUNTER → 2024-11-14 11:17 | Outpatient (BNV) | payer OTHER, SELFPAY | PROVIDERS: Emergency Provider Emergency Medicine; Visit Provider Radiology Diagnostic Radiology | DX: R42 Dizziness and giddiness (principal); R06.02 Shortness of breath | CPT/HCPCS: 70450; 71045 ==

== ENCOUNTER → 2024-11-14 11:17 | Outpatient (BNV) | payer OTHER, SELFPAY | PROVIDERS: Admitting Provider Internal Medicine; Emergency Provider Emergency Medicine; PCP Internal Medicine; Visit Provider Internal Medicine Cardiovascular Disease | DX: I48.91 Unspecified atrial fibrillation (principal); I45.10 Unspecified right bundle-branch block; I45.2 Bifascicular block | CPT/HCPCS: 93010 ==

== ENCOUNTER 2024-11-14 16:48 | Outpatient (BNV) | payer OTHER, SELFPAY | END 2024-11-15 11:28 | PROVIDERS: Admitting Provider Internal Medicine; Emergency Provider Emergency Medicine; PCP Internal Medicine; Visit Provider Radiology Diagnostic Radiology | DX: N28.1 Cyst of kidney, acquired (principal) | CPT/HCPCS: 76775 ==

== ENCOUNTER 2024-11-14 16:48 | Outpatient (BNV) | payer OTHER, SELFPAY | END 2024-11-15 07:00 | PROVIDERS: Admitting Provider Internal Medicine; Emergency Provider Emergency Medicine; PCP Internal Medicine; Visit Provider Internal Medicine Cardiovascular Disease | DX: I35.0 Nonrheumatic aortic (valve) stenosis (principal); I51.7 Cardiomegaly | CPT/HCPCS: 93306 ==

== ENCOUNTER → 2024-11-14 16:48 | Outpatient (BNV) | payer OTHER, SELFPAY | PROVIDERS: Admitting Provider Internal Medicine; Emergency Provider Emergency Medicine; PCP Internal Medicine; Visit Provider Nurse Practitioner Family | DX: N17.9 Acute kidney failure, unspecified (principal); N18.9 Chronic kidney disease, unspecified | CPT/HCPCS: 99222; 99232 ==

== ENCOUNTER → 2024-11-14 16:48 | Outpatient (BNV) | payer OTHER, SELFPAY | PROVIDERS: Admitting Provider Internal Medicine; Emergency Provider Emergency Medicine; PCP Internal Medicine; Visit Provider Internal Medicine | DX: I50.33 Acute on chronic diastolic (congestive) heart failure (principal) | CPT/HCPCS: 99223; 99232; 99239 ==